=== PATIENT | female | born 1950 | race Caucasian/White ===

== ENCOUNTER 2020-01-12 14:05 | Inpatient (IN) | payer MEDICARE, BC, SELFPAY ==
[2019-11-21 12:58] VITALS: BMI 27.8
--- NOTE | 2020-01-04 13:46 | EKG12_ITS ---
Test Reason : RE OP Blood Pressure : / mmHG Vent. Rate : 082 BPM Atrial Rate : 082 BPM P-R Int : 186 ms QRS Dur : 080 ms QT Int : 378 ms P-R-T Axes : 072 -20 059 degrees QTc Int : 441 ms Normal sinus rhythm Normal ECG Confirmed by RENA SAAVEDRA, BO ([id number]), photography editor EMMETT NEWMAN ([id number]) on 01/05/2020 11:04:00 AM Referred By: Mamadou Hu Confirmed By:BO CHASE MD
[2020-01-04 14:47] LABS: Absolute Lymphocyte Count 2.31 X10^3/uL (0.83-4.51); Absolute Neutrophil Count 4.5 X10^3/uL (2.0-7.7); Basophil# 0.05 X10^3/uL; Basophil% 0.7 % (0-1); Eosinophil# 0.08 X10^3/uL; Eosinophils% 1.1 % (0-5); Hemoglobin 14.9 g/dL (12.0-15.0); Lymphocyte # 2.31 X10^3/ul (4.0); Lymphocyte % 30.6 % (19-41); Mean Corp Hgb Conc 33.1 g/dL (32-36); Mean Corpuscular Hgb 29.5 pg (27.0-32.0); Mean Corpuscular Volume 89.1 fL (81-99); Mean Platelet Vol. 10.2 fl (6.2-12.0); Monocyte# 0.56 X10^3/uL; Monocyte% 7.4 % (0-10); NRBC Flagged by Analyzer 0 % (0-5); Neutrophil # 4.52 X10^3/uL (2.7-7.7); Neutrophil % 59.9 % (47-70); Platelet Count 306 K/mm3 (150-450); RBC Distribution Width CV 13.3 % (11.6-14.6); RBC Distribution Width SD 43.7 fl (35.1-43.9); Red Blood Count 5.05 M/mm3 (4.2-5.4); White Blood Count 7.5 K/mm3 (4.4-11.0)
[2020-01-04 15:13] LABS: Anion Gap 6 (5-15); BUN 17 mg/dL (7-18); BUN/Creat Ratio 16.7 RATIO (10-20); Chloride 105 mmol/L (98-107); Creatinine, Serum 1.02 mg/dL (0.55-1.02); EST Glomerular Filtration Rate 57 mL/min (>60); Est Glom Filt Rate - Afr Amer 69 mL/min (>60); Glucose 95 mg/dL (74-106); Potassium 3.5 mmol/L (3.5-5.1); Sodium Level 140 mmol/L (136-145)
[2020-01-04 15:24] LABS: Magnesium 2.2 mg/dL (1.6-2.6)
[2020-01-05 14:37] LABS: HIV - WCH Non-Reactive (Nonreactive)
[2020-01-06 05:07] LABS: HEPATITIS B SURFACE AG Negative (Negative); Hepatitis A AB, Total Negative (Negative); Hepatitis A IgM Antibody Negative (Negative); Hepatitis B Core AB IgM Negative (Negative); Hepatitis B Core Ab Total Negative (Negative); Hepatitis C Ab <0.1 s/co ratio (0.0-0.9)
[2020-01-06 11:43] LABS: Hep B Surface Antibodies Non Reactive (.)
[2020-01-12] VITALS (13 sets, daily range): BP systolic 93–149; BP diastolic 46–83; PULSE 58–75; RESP 16; TEMP 36.1–36.9; O2SAT 92–99; BMI 28.2
--- NOTE | 2020-01-12 06:00 | HP_ITS ---
Intake Intake Visit Reasons: low back Accompanied by: Self Is patient in pain?: Yes Pain scale (1-10): 2 Allergies Penicillins Allergy (Verified 01/04/20 14:42) Hives Medications aspirin 81 mg tablet,delayed release 81 mg PO DAILY 11/21/19 [History Confirmed 01/04/20] atenolol 25 mg tablet 25 mg PO DAILY 11/21/19 [History Confirmed 01/04/20] biotin 5 mg tablet 5 mg PO DAILY 11/21/19 [History Confirmed 01/04/20] glucosamine 500 mg-msm 100 mg-vit C 20 ay-mddlm-xihi-primrose capsule 1 cap PO DAILY 11/21/19 [History Confirmed 01/04/20] hydrochlorothiazide 25 mg tablet 25 mg PO DAILY 11/21/19 [History Confirmed 01/04/20] lovastatin 20 mg tablet 20 mg PO DAILY 11/21/19 [History Confirmed 01/04/20] multivitamin 1 tab PO DAILY 11/21/19 [History Confirmed 01/04/20] omega 8-xib-pae-fish oil 1,000 mg (120 mg-180 mg) capsule 1 cap PO DAILY 11/21/19 [History Confirmed 01/04/20] pyridoxine (vitamin B6) 50 mg capsule 50 mg PO DAILY 11/21/19 [History Confirmed 01/04/20] turmeric root extract 500 mg capsule 500 mg PO DAILY 11/21/19 [History Confirmed 01/04/20] PFSH Medical History (Updated 11/21/19 @ 13:03 by Randee Lemus) Hyperlipidemia (Acute) HTN (hypertension) (Chronic) Surgical History (Updated 11/21/19 @ 13:08 by Randee Lemus) H/O: hysterectomy (Acute) Family History (Updated 11/21/19 @ 13:09 by Randee Lemus) Mother Cancer Father Heart problem Social History (Updated 01/04/20 @ 15:[address] Mamadou Hu DO) household members: spouse housing: house Smoking Status: Never smoker alcohol intake: never what type of physical activity do you participate in: none do you feel safe at home: Yes HPI low back: Details: Parts of this documentation were recorded by a scribe, this documentation accurately reflects the service provided and the decisions made by me, Dr. Mamadou Hu DO 01/04/20 1431. DINORA DUTTA is a 69 year old F here today to sign surgery consent. Surgery is scheduled for 01/12/[address] Hu. Reviewed the pre-operative plans with the patient. Risks and benefits of the procedure were fully explained, including but not limited to infection, neurovascular injury, continued pain, arthritis, stiffness, need for further surgery, re-injury, DVT, PE, general risks of anesthesia, and loss of limb or life. The patient understands all the risks and does wish to proceed with written consent. Mrs. Dutta returns for her preop. She is scheduled to have a decompression at L4-5 8 days from today. She did her lab work at the hospital today. I discussed the surgery with her how it would be done and what to expect afterwards. I answered all her questions. In addition I reviewed the MRI that was on a disc from [facility]. She has severe stenosis at L4-5. We also spoke of possible risks and complications associated with the surgery including possibility of coma paralysis infection meningitis failure to relieve the symptoms blood clot in the legs blood clot in the lungs microinfarction stroke among others. I answered all her questions. Coding Level of Care Code Off vis,est,level 2 Time Spent (min) 30 No H&P changes
[2020-01-12 08:41] LABS: Bedside Glucose 125 mg/dL (70-110)
[2020-01-12] MEDS: Acetaminophen 500 MG Tablet 1000 MG PO (08:54)
[2020-01-12] MEDS: Lactated Ringers 1,000 ML 100 ML IV ×2 (09:13→12:45)
--- NOTE | 2020-01-12 10:20 | RAD_ITS ---
STUDY: X-RAY - LUMBAR SPINE REASON FOR EXAM: Female, 69 years old. LAMINECTOMY L4-5 TECHNIQUE: 1 view(s) of the lumbar spine were obtained. COMPARISON: None FINDINGS: Intraoperative imaging was provided. The localization instrument is seen along the posterior aspect of the L3-L4 vertebrae assuming that the patient has 5 lumbar segments. RAD/Lumbar Spine 2 or 3 Views IMPRESSION: The metallic localization device is seen overlying the posterior aspect of the L3-L4 disc space. Electronically Signed: Carroll Molina, at 15:04 EST , Service support ,
[2020-01-12] MEDS: THROMBIN (RECOMBINANT) 20,000 UNIT VIAL 20000 UNIT TOPICAL (12:27)
--- NOTE | 2020-01-12 14:21 | OP.PCM_ITS ---
Report of Operation Date of Procedure: 01/12/20 Description of Surgical Findings:: Preoperative diagnosis: Severe spinal stenosis L4-5 Postoperative diagnoses: The same Procedure: Decompression laminectomy L4-5 Surgeon: Dr. Hu Park Superintendent: Ravi from surgery Anesthesia: [facility] Estimated blood loss: 100 cc Drains: Medium Hemovac Complications: None Patient was taken to the OR where she was placed under general endotracheal anesthesia she was then placed in prone position on the Steve frame. After appropriate positioning with care to protect her bony prominences her breasts her brachial plexus bilaterally and her ulnar nerves on both sides and her facial features the back was prepped and draped in standard fashion. Then made a longitudinal incision centered over what I thought would be L4 5 subcutaneous tissues were incised the length of the skin incision first elevated the paraver tebral muscles off the lamina of 4 on the left side a marker was put in place we demonstrated that we were at 3 4 we simply moved down to 1 level. And then we extended the incision just a little. Elevated the patellar muscles off the lamina of 4 and the top of the lamina of 5 then open the opposite side into the same exact thing elevated her care paravertebral muscles off the lamina of L4 and 5 on the right side thorough irrigation was carried out we then put the super slide in place with 2 blades on each side this gave us ample exposure thorough irrigation was carried out bleeders were controlled with cautery. I then removed the spinous process of L for with double-action rongeurs all the way down to the midline. I then elevated the ligamentum flavum off the underside of the lamina of 4 on both sides. The laminectomy was then started first in the midline then went each side keeping the ligamentum flavum released off the lamina. Fashion I was able to perform the laminectomy to go beyond the attachment of the ligamentum flavum I then remove the ligamentum flavum on each side with 45 degree Kerrison rongeurs. Will use them on each side to remove the ligamentum flavum all the way lateral into the lateral gutter along with some bone of the lateral gutter. Was done first on the right side as this was her worst side and I was working from the patient's left side. At that is the side completely decompressed I then moved to the opposite side of the table was rehooked to my cooling unit and my light began decompressing the rest of the left side. Given the 45 degree Kerrison rongeurs of different sizes were used to go between the dura and ligamentum flavum and remove the ligamentum flavum and some of the lateral recess. This completely opened the canal and decompressed the L5 nerve roots on each side. We thoroughly irrigated every 10 to 15 minutes in the course of the case to prevent infection. We had good hemostasis placed an amnionic membrane directly over the dura to prevent adhesions in the future. Then placed Gelfoam over the top of that. A medium Hemovac drain was then inserted the lumbar fascia was approximated using #1 Vicryl with interrupted fashion in [id number]. The subcutaneous tissues remains reapproximated with a 2-0 Vicryl in interrupted fashion and skin was approximated with skin clips. Sterile dressings were then applied. She was then recovered in the OR she was moved to her hospital bed and taken to recovery in satisfactory condition.
[2020-01-12] MEDS: Ondansetron 4 MG/2 ML Vial IV (17:09)
--- NOTE | 2020-01-12 17:57 | PCM.PN.HOSP ---
<Garrison Martino - Last Filed: 01/12/20 17:57> Reason for Visit: medical management Subjective: This is a 69 year old female with pmhx of lumbar spinal stenosis, HTN, HLD, who today underwent L4/L5 laminectomy and decompression with Dr. Hu. She is doing well post operatively although at this time remains somewhat groggy. She currently denies any SOB or cough, fevers or chills, nausea/vomiting. She has no pain, numbness, or tingling at this time. At home she experienced severe BL LE pain and some parasthesias in the BL feet leading to this surgery. As of late she has been in her normal state of health. Her PCP manages her HTN/HLD. Vitals/I&O's: Vital Signs Temp Pulse Resp BP Pulse Ox 97.8 F 65 16 103/57 L 92 01/12/20 16:57 01/12/20 16:57 01/12/20 16:57 01/12/20 16:57 01/12/20 16:57 Oxygen Flow Rate (L/min) 6 Oxygen Delivery Method Room Air Weight: 154 lb 5.177 oz Body Mass Index (BMI) 28.2 Intake and Output for Last 24 Hours 01/10/20 01/11/20 01/12/20 23:59 23:59 23:59 Intake Total 990.00 / 990.00 Output Total 460 / 460 Balance 530.00 / 530.00 General: Alert, Oriented x3, Cooperative HEENT: Atraumatic, PERRLA, EOMI, Normocephalic Neck: Supple, No JVD, Negative Carotid Bruits Lungs: Clear to auscultation, Normal air movement Cardiovascular: Regular rate, No murmurs Abdomen: Bowel Sounds Present, Soft, Non Tender Extremities: No edema, Capillary Refill Less than 3 Seconds Skin: No rashes, No breakdown Musculoskeletal: No Tenderness to Palpation of Joints or Extremities, - - distal PMS intact BL LE Neurological: Cranial nerves II-XII grossly intact Psych/Mental Status: Normal Affect, Appropriate, Alert and oriented to time, place, person, mood and affect Microbiology Past 72 Hours 01/11/20 12:30 Interface Orders SARS-CoV-2 Antigen (Rapid) - Final Laboratory Results 01/12/20 08:33: POC Glucose 125 H Current Medications Enteral Nutritional Formula (Ensure Surgery 237 Ml Liquid) 237 ml PO TIDCM [facility] Last Admin: 01/12/20 17:01 Dose: Not Given Documented by: Famotidine (Famotidine 20 Mg Tablet) 20 mg PO BID [facility] Clindamycin Phosphate 900 mg/ (Dextrose) 106 mls @ 150 mls/hr IV Q8H [facility] Stop: 01/13/20 04:43 Sodium Chloride () 250 mls @ 15 mls/hr IV .[id number] PRN PRN Reason: Saline Flush Sodium Chloride () 250 mls @ 15 mls/hr IV .[id number] PRN PRN Reason: Additional IVPB Infusion Morphine Sulfate (Morphine 4 Mg/Ml Syringe) 2 - 4 mg IV Q2H PRN PRN PRN Reason: Pain Score 6-10 Morphine Sulfate (Morphine 2 Mg/Ml Syringe) 2 - 4 mg IV Q2H PRN PRN PRN Reason: Pain Score 6-10 Ondansetron HCl (Ondansetron 4 Mg/2 Ml Vial) 4 mg IV Q8H PRN PRN PRN Reason: NAUSEA Last Admin: 01/12/20 17:09 Dose: 4 mg Documented by: Senna/Docusate Sodium (Senna/Docusate Sodium 1 Tablet) 2 tablet PO BID [facility] Sodium Chloride (0.9% Saline Lock 10 Ml Syringe) 10 - 40 ml IV UD PRN PRN Reason: SALINE FLUSH STROKE Vital Signs/Narrative: Vital Signs Temp Pulse Resp BP Pulse Ox 01/12/20 16:57 97.8 F 65 16 103/57 L 92 01/12/20 16:22 97.0 F L 64 16 113/58 L 94 01/12/20 16:15 61 16 113/55 L 93 01/12/20 16:00 65 16 104/46 L 98 01/12/20 15:45 59 L 16 104/49 L 98 01/12/20 15:26 63 16 100/65 98 01/12/20 15:15 62 16 116/67 98 01/12/20 15:05 58 L 16 93/57 L 98 01/12/20 14:30 97.4 F L 59 L 16 108/55 L 99 Medical Necessity - Tobacco Use Smoking Status: Never smoker Tobacco Use: Non-smoker Assessment/Plan 1. Lumbar spinal stenosis - s/p L4/L5 laminectomy/decompression per Dr. Hu. Doing well post op with no acute issues. Received perioperative Clindamycin. Labs reviewed no marked abnormalities. Hepatitis and HIV screens are negative. -It is not clear why the patient takes daily aspirin. If the patient intends to resume this the timing will need to be OK'd with Dr. Hu. 2. HTN - resume home meds in the AM. 3. HLD - resume statin in the AM Thank you for the opportunity to participate in the care of this patient. This patient was seen by Garrison Martino PA-C under the supervision of Dr. Flowers. <Piotr Flowers - Last Filed: 01/12/20 20:07> Vitals/I&O's: Vital Signs Temp Pulse Resp BP Pulse Ox 36.4 C L 61 16 101/60 95 01/12/20 18:42 01/12/20 18:42 01/12/20 18:42 01/12/20 18:42 01/12/20 19:05 Oxygen Flow Rate (L/min) 6 Oxygen Delivery Method Room Air Weight: 70 kg Body Mass Index (BMI) 28.2 Intake and Output for Last 24 Hours 01/10/20 01/11/20 01/12/20 23:59 23:59 23:59 Intake Total 1140.00 / 1140.00 Output Total 560 / 560 Balance 580.00 / 580.00 General: Alert, Cooperative HEENT: Atraumatic, Normocephalic Lungs: Clear to auscultation, Normal air movement Cardiovascular: Regular rate, No murmurs Abdomen: Bowel Sounds Present, Soft, Non Tender Extremities: No edema, No Calf Tenderness Skin: No rashes, No breakdown Musculoskeletal: - Neurological: Cranial nerves II-XII grossly intact Psych/Mental Status: Normal Affect, Appropriate Microbiology Past 72 Hours 01/11/20 12:30 Interface Orders SARS-CoV-2 Antigen (Rapid) - Final Laboratory Results 01/12/20 08:33: POC Glucose 125 H Current Medications Atenolol (Atenolol 25 Mg Tablet) 25 mg PO DAILY [facility] Atorvastatin Calcium (Atorvastatin Calcium 10 Mg Tablet) 5 mg PO QHS [facility] Enteral Nutritional Formula (Ensure Surgery 237 Ml Liquid) 237 ml PO TIDCM [facility] Last Admin: 01/12/20 17:01 Dose: Not Given Documented by: Famotidine (Famotidine 20 Mg Tablet) 20 mg PO BID [facility] Hydrochlorothiazide (Hydrochlorothiazide 25 Mg Tablet) 25 mg PO DAILY [facility] Clindamycin Phosphate 900 mg/ (Dextrose) 106 mls @ 150 mls/hr IV Q8H [facility] Stop: 01/13/20 04:43 Last Admin: 01/12/20 19:49 Dose: 150 mls/hr Documented by: Sodium Chloride () 250 mls @ 15 mls/hr IV .[id number] PRN PRN Reason: Saline Flush Last Admin: 01/12/20 19:49 Dose: 15 mls/hr Documented by: Sodium Chloride () 250 mls @ 15 mls/hr IV .[id number] PRN PRN Reason: Additional IVPB Infusion Morphine Sulfate (Morphine 4 Mg/Ml Syringe) 2 - 4 mg IV Q2H PRN PRN PRN Reason: Pain Score 6-10 Morphine Sulfate (Morphine 2 Mg/Ml Syringe) 2 - 4 mg IV Q2H PRN PRN PRN Reason: Pain Score 6-10 Ondansetron HCl (Ondansetron 4 Mg/2 Ml Vial) 4 mg IV Q8H PRN PRN PRN Reason: NAUSEA Last Admin: 01/12/20 17:09 Dose: 4 mg Documented by: Senna/Docusate Sodium (Senna/Docusate Sodium 1 Tablet) 2 tablet PO BID [facility] Sodium Chloride (0.9% Saline Lock 10 Ml Syringe) 10 - 40 ml IV UD PRN PRN Reason: SALINE FLUSH STROKE Vital Signs/Narrative: Vital Signs Temp Pulse Resp BP Pulse Ox 01/12/20 19:05 95 01/12/20 18:42 36.4 C L 61 16 101/60 93 01/12/20 16:57 36.6 C 65 16 103/57 L 92 01/12/20 16:22 36.1 C L 64 16 113/58 L 94 01/12/20 16:15 61 16 113/55 L 93 Assessment/Plan Patient seen and examined independently. Data reviewed. I agree with the above note by the physician news production assistant. 1. Status post L4-L5 laminectomy and decompression. Management per spine surgery. 2. Hypertension: Stable at this time. Continue with atenolol, HCTZ 3. Hyperlipidemia: Patient on low-dose of atorvastatin. 4. VTE prophylaxis: SCDs. Thank you for the consult. The hospitalist service will continue to follow along during this patient's hospitalization. Inpatient E&M: [id number] Subs Hosp L2
[2020-01-12] MEDS: Atorvastatin Calcium 10 MG Tablet 5 MG PO (21:39)
[2020-01-12] MEDS: Senna/Docusate Sodium 1 Tablet 2 TABLET PO (21:39)
[2020-01-12] MEDS: Famotidine 20 MG Tablet PO (21:40)
[2020-01-13 02:16] VITALS: BP 99/57; PULSE 60; RESP 16; TEMP 36.3; O2SAT 96
[2020-01-13 08:40] VITALS: PULSE 68
[2020-01-13 08:47] VITALS: BP 113/56; PULSE 63; RESP 16; TEMP 36.6; O2SAT 96
[2020-01-13] MEDS: Ensure Surgery 237 ML LIQUID PO ×3 (08:51→16:52)
[2020-01-13 09:20] VITALS: O2SAT 97
[2020-01-13] MEDS: Famotidine 20 MG Tablet PO ×2 (09:48→20:11)
[2020-01-13] MEDS: hydroCHLOROthiazide 25 MG Tablet PO (09:49)
[2020-01-13] MEDS: Senna/Docusate Sodium 1 Tablet 2 TABLET PO ×2 (09:49→20:11)
[2020-01-13] MEDS: Atenolol 25 MG Tablet PO (09:49)
--- NOTE | 2020-01-13 11:15 | CASEMGMT ---
RN CM Face to Face with patient for initial transition planning/care coordination assessment. RN CM introduced self and role at [facility]. Patient lying in bed, alert and oriented. Patient willing to participate in assessment and is able to answer all questions appropriately. Care providers, pharmacy, and demographics verified. Patient wishes to discharge home, denies need for home health at this time. Patient states she has no further needs or concerns at this time. CM to follow for discharge planning needs that may arise. PCP: [facility] Specialists: [facility] spinal surgeon [facility]erred [facility]acy: [facility] Insurance: Elaina TRAN Prescription Benefit: yes Living Will/HPOA: yes, Narendra Dutta LNOK: Living Arrangements: Patient lives with in a 2 story home with bed and bath on first floor. 2 steps and railing to enter the home. Patient states she was independent at home prior to surgery. Transportation: DME/HHC: patient states she has shower chair, raised toilet, and walker at home. Patient denies previous HHC. Disposition Plan: Patient to discharge home with family support and follow-up plans in place. Zara ELIZALDE, RN, CM
--- NOTE | 2020-01-13 13:12 | PN_ITS ---
<Garrison Martino - Last Filed: 01/13/20 13:12> Reason for Visit: Postop laminectomy Subjective: Patient doing well this morning with no acute issues. He has some nausea last night however none so far today. No pain in her back today. She does complain of some increased krlf-tgl-bmxbvwa sensation in the left foot. No fevers or chills. No shortness of breath. Vitals/I&O's: Vital Signs Temp Pulse Resp BP Pulse Ox 97.9 F 63 16 113/56 L 97 01/13/20 08:47 01/13/20 08:47 01/13/20 08:47 01/13/20 08:47 01/13/20 09:20 Oxygen Flow Rate (L/min) 6 Oxygen Delivery Method Room Air Weight: 154 lb 5.177 oz Body Mass Index (BMI) 28.2 Intake and Output for Last 24 Hours 01/11/20 01/12/20 01/13/20 23:59 23:59 23:59 Intake Total 1288.00 / 1288.00 237.25 / 237.25 Output Total 560 / 560 878 / 878 Balance 728.00 / 728.00 -640.75 / -640.75 General: Alert, Oriented x3, Cooperative HEENT: Atraumatic, PERRLA, EOMI, Normocephalic Neck: Supple, No JVD, Negative Carotid Bruits Lungs: Clear to auscultation, Normal air movement Cardiovascular: Regular rate, No murmurs Abdomen: Bowel Sounds Present, Soft, Non Tender Extremities: No edema, Capillary Refill Less than 3 Seconds Skin: No rashes, No breakdown Musculoskeletal: No Tenderness to Palpation of Joints or Extremities Neurological: Cranial nerves II-XII grossly intact Psych/Mental Status: Normal Affect, Appropriate, Alert and oriented to time, place, person, mood and affect Microbiology Past 72 Hours 01/11/20 12:30 Interface Orders SARS-CoV-2 Antigen (Rapid) - Final Current Medications Atenolol (Atenolol 25 Mg Tablet) 25 mg PO DAILY ON [facility] OF [facility] Last Admin: 01/13/20 09:49 Dose: 25 mg Documented by: Atorvastatin Calcium (Atorvastatin Calcium 10 Mg Tablet) 5 mg PO QHS ON LICENSE OF [facility] Last Admin: 01/12/20 21:39 Dose: 5 mg Documented by: Enteral Nutritional Formula (Ensure Surgery 237 Ml Liquid) 237 ml PO TIDCM ON LICENSE OF [facility] Last Admin: 01/13/20 12:46 Dose: 237 ml Documented by: Famotidine (Famotidine 20 Mg Tablet) 20 mg PO BID ON [facility] OF [facility] Last Admin: 01/13/20 09:48 Dose: 20 mg Documented by: Hydrochlorothiazide (Hydrochlorothiazide 25 Mg Tablet) 25 mg PO DAILY ON [facility] OF [facility] Last Admin: 01/13/20 09:49 Dose: 25 mg Documented by: Sodium Chloride () 250 mls @ 15 mls/hr IV .[id number] PRN PRN Reason: Saline Flush Last Infusion: 01/13/20 06:00 Dose: 0 mls/hr Documented by: Sodium Chloride () 250 mls @ 15 mls/hr IV .[id number] PRN PRN Reason: Additional IVPB Infusion Morphine Sulfate (Morphine 4 Mg/Ml Syringe) 2 - 4 mg IV Q2H PRN PRN PRN Reason: Pain Score 6-10 Morphine Sulfate (Morphine 2 Mg/Ml Syringe) 2 - 4 mg IV Q2H PRN PRN PRN Reason: Pain Score 6-10 Ondansetron HCl (Ondansetron 4 Mg/2 Ml Vial) 4 mg IV Q8H PRN PRN PRN Reason: NAUSEA Last Admin: 01/12/20 17:09 Dose: 4 mg Documented by: Senna/Docusate Sodium (Senna/Docusate Sodium 1 Tablet) 2 tablet PO BID ON [facility] OF [facility] Last Admin: 01/13/20 09:49 Dose: 2 tablet Documented by: Sodium Chloride (0.9% Saline Lock 10 Ml Syringe) 10 - 40 ml IV UD PRN PRN Reason: SALINE FLUSH STROKE Vital Signs/Narrative: Vital Signs Pulse Ox 01/13/20 09:20 97 Medical Necessity - Tobacco Use Smoking Status: Never smoker Tobacco Use: Non-smoker Assessment/Plan 1. Lumbar spinal stenosis - s/p L4/L5 laminectomy/decompression per Dr. Hu, postop day #1. Doing well post op with no acute issues. Received perioperative Clindamycin. Hepatitis and HIV screens are negative. -It is not clear why the patient takes daily aspirin. If the patient intends to resume this the timing will need to be OK'd with Dr. Hu. 2. HTN -continue home meds. BP is low normal. Trend at this time. 3. HLD -continue home meds Thank you for the opportunity to participate in the care of this patient. This patient was seen by Garrison Martino PA-C under the supervision of Dr. Sung <Kenyetta Sung - Last Filed: 01/13/20 18:02> Vitals/I&O's: Vital Signs Temp Pulse Resp BP Pulse Ox 98.4 F 74 16 108/58 L 95 01/13/20 14:18 01/13/20 14:18 01/13/20 14:18 01/13/20 14:18 01/13/20 14:18 Oxygen Flow Rate (L/min) 6 Oxygen Delivery Method Room Air Weight: 70 kg Body Mass Index (BMI) 28.2 Intake and Output for Last 24 Hours 01/11/20 01/12/20 01/13/20 23:59 23:59 23:59 Intake Total 1288.00 / 1288.00 237.25 / 237.25 Output Total 560 / 560 878 / 878 Balance 728.00 / 728.00 -640.75 / -640.75 Microbiology Past 72 Hours 01/11/20 12:30 Interface Orders SARS-CoV-2 Antigen (Rapid) - Final Current Medications Acetaminophen (Acetaminophen 500 Mg Tablet) 500 mg PO Q6H PRN PRN PRN Reason: HEADACHE Last Admin: 01/13/20 16:50 Dose: 500 mg Documented by: Atenolol (Atenolol 25 Mg Tablet) 25 mg PO DAILY ON [facility] Last Admin: 01/13/20 09:49 Dose: 25 mg Documented by: Atorvastatin Calcium (Atorvastatin Calcium 10 Mg Tablet) 5 mg PO QHS ON [facility] OF [facility] Last Admin: 01/12/20 21:39 Dose: 5 mg Documented by: Enteral Nutritional Formula (Ensure Surgery 237 Ml Liquid) 237 ml PO TIDCM ON LICENSE OF [facility] Last Admin: 01/13/20 16:52 Dose: 237 ml Documented by: Famotidine (Famotidine 20 Mg Tablet) 20 mg PO BID ON [facility] OF [facility] Last Admin: 01/13/20 09:48 Dose: 20 mg Documented by: Hydrochlorothiazide (Hydrochlorothiazide 25 Mg Tablet) 25 mg PO DAILY ON [facility] Last Admin: 01/13/20 09:49 Dose: 25 mg Documented by: Sodium Chloride () 250 mls @ 15 mls/hr IV .[id number] PRN PRN Reason: Saline Flush Last Infusion: 01/13/20 06:00 Dose: 0 mls/hr Documented by: Sodium Chloride () 250 mls @ 15 mls/hr IV .[id number] PRN PRN Reason: Additional IVPB Infusion Morphine Sulfate (Morphine 4 Mg/Ml Syringe) 2 - 4 mg IV Q2H PRN PRN PRN Reason: Pain Score 6-10 Morphine Sulfate (Morphine 2 Mg/Ml Syringe) 2 - 4 mg IV Q2H PRN PRN PRN Reason: Pain Score 6-10 Ondansetron HCl (Ondansetron 4 Mg/2 Ml Vial) 4 mg IV Q8H PRN PRN PRN Reason: NAUSEA Last Admin: 01/12/20 17:09 Dose: 4 mg Documented by: Senna/Docusate Sodium (Senna/Docusate Sodium 1 Tablet) 2 tablet PO BID [facility] Last Admin: 01/13/20 09:49 Dose: 2 tablet Documented by: Sodium Chloride (0.9% Saline Lock 10 Ml Syringe) 10 - 40 ml IV UD PRN PRN Reason: SALINE FLUSH STROKE Vital Signs/Narrative: Vital Signs Temp Pulse Resp BP Pulse Ox 01/13/20 14:18 98.4 F 74 16 108/58 L 95 Assessment/Plan This patient was seen in conjunction with ALLYSON Garza. I have independently interviewed and examined the patient and reviewed pertinent historical, laboratory, and other data. Please refer to ALLYSON Garza note for his patient's presentation, findings, and recommendations. I have reviewed and his note and concur with his documentation Patient was seen and examined. She feels improved. She has some subjective tingling and numbness in the left lower extremity. Denies any fever or chills. Rest of ROS is negative. Physical Exam: Gen: Comfortable, not pale, not jaundiced CVS:HS I +II, regular, no murmurs RESP: CTA GI: BS present and normal, soft, nontender, no palpable organs, wound drain in place EXT:No edema ASSESSMENT: 1. POD# 1 status post L4/L5 decompressive laminectomy 2. Hypertension 3. Hyperlipidemia Plan: Continue with pain control Continue with antihypertensive medications PT/OT to evaluate and treat Inpatient E&M: [id number] [facility] Hosp L2
[2020-01-13 14:18] VITALS: BP 108/58; PULSE 74; RESP 16; TEMP 36.9; O2SAT 95
--- NOTE | 2020-01-13 16:20 | PN_ITS ---
Progress Note Patient seen on rounds on postop day #1. Patient is sitting comfortably with no complaints. Neurologically she is intact. Her dressing is dry. He has actually walked in the hallway today. States that her leg pain is definitely better and she is getting feelings back in her feet. She is alert and well- oriented. Did complain of one thing that of a headache that she gets frequently. I wrote for Tylenol for the headache. We will see her again tomorrow rounds at which time I will pull the drain and change the dressing and probably let her go home. STROKE Vital Signs/Narrative: Vital Signs Temp Pulse Resp BP Pulse Ox 01/13/20 14:18 98.4 F 74 16 108/58 L 95
[2020-01-13] MEDS: Acetaminophen 500 MG Tablet PO (16:50)
[2020-01-13 19:58] VITALS: BP 106/52; PULSE 64; RESP 16; TEMP 36.6; O2SAT 95
[2020-01-13] MEDS: Atorvastatin Calcium 10 MG Tablet 5 MG PO (20:11)
[2020-01-14 02:25] VITALS: BP 125/68; PULSE 62; RESP 16; TEMP 36.4; O2SAT 96
[2020-01-14] MEDS: Acetaminophen 500 MG Tablet PO (02:26)
[2020-01-14] MEDS: 0.9% Saline Lock 10 ML Syringe IV (02:27)
[2020-01-14] MEDS: Atenolol 25 MG Tablet PO (09:13)
[2020-01-14] MEDS: Ensure Surgery 237 ML LIQUID PO (09:13)
[2020-01-14] MEDS: Famotidine 20 MG Tablet PO (09:13)
[2020-01-14] MEDS: Senna/Docusate Sodium 1 Tablet 2 TABLET PO (09:13)
[2020-01-14] MEDS: hydroCHLOROthiazide 25 MG Tablet PO (09:13)
[2020-01-14 09:17] VITALS: BP 115/76; PULSE 80; RESP 18; TEMP 36.7; O2SAT 92
--- NOTE | 2020-01-14 10:47 | PCM.PN.HOSP ---
<Garrison Martino - Last Filed: 01/14/20 10:47> Reason for Visit: post laminectomy Subjective: No fever/chills/SOB/cough/abd pain/nausea/vomiting. Pt denies pain and parasthesias today. Pt has no complaints at this time. Vitals/I&O's: Vital Signs Temp Pulse Resp BP Pulse Ox 98.0 F 80 18 115/76 92 01/14/20 09:17 01/14/20 09:17 01/14/20 09:17 01/14/20 09:17 01/14/20 09:17 Oxygen Flow Rate (L/min) 6 Oxygen Delivery Method Room Air Weight: 154 lb 5.177 oz Body Mass Index (BMI) 28.2 Intake and Output for Last 24 Hours 01/12/20 01/13/20 01/14/20 23:59 23:59 23:59 Intake Total 1288.00 / 1288.00 837.25 / 1037.25 400 / 400 Output Total 560 / 560 1498 / 1498 510 / 510 Balance 728.00 / 728.00 -660.75 / -460.75 -110 / -110 General: Alert, Oriented x3, Cooperative HEENT: Atraumatic, PERRLA, EOMI, Normocephalic Neck: Supple, No JVD, Negative Carotid Bruits Lungs: Clear to auscultation, Normal air movement Cardiovascular: Regular rate, No murmurs Abdomen: Bowel Sounds Present, Soft, Non Tender Extremities: No edema, Capillary Refill Less than 3 Seconds Skin: No rashes, No breakdown Musculoskeletal: No Tenderness to Palpation of Joints or Extremities Neurological: Cranial nerves II-XII grossly intact Psych/Mental Status: Normal Affect, Appropriate, Alert and oriented to time, place, person, mood and affect Microbiology Past 72 Hours 01/11/20 12:30 Interface Orders SARS-CoV-2 Antigen (Rapid) - Final Current Medications Acetaminophen (Acetaminophen 500 Mg Tablet) 500 mg PO Q6H PRN PRN PRN Reason: HEADACHE Last Admin: 01/14/20 02:26 Dose: 500 mg Documented by: Atenolol (Atenolol 25 Mg Tablet) 25 mg PO DAILY [facility] Last Admin: 01/14/20 09:13 Dose: 25 mg Documented by: Atorvastatin Calcium (Atorvastatin Calcium 10 Mg Tablet) 5 mg PO QHS [facility] Last Admin: 01/13/20 20:11 Dose: 5 mg Documented by: Enteral Nutritional Formula (Ensure Surgery 237 Ml Liquid) 237 ml PO TIDCM [facility] Last Admin: 01/14/20 09:13 Dose: 237 ml Documented by: Famotidine (Famotidine 20 Mg Tablet) 20 mg PO BID [facility] Last Admin: 01/14/20 09:13 Dose: 20 mg Documented by: Hydrochlorothiazide (Hydrochlorothiazide 25 Mg Tablet) 25 mg PO DAILY [facility] Last Admin: 01/14/20 09:13 Dose: 25 mg Documented by: Sodium Chloride () 250 mls @ 15 mls/hr IV .[id number] PRN PRN Reason: Saline Flush Last Infusion: 01/13/20 06:00 Dose: 0 mls/hr Documented by: Sodium Chloride () 250 mls @ 15 mls/hr IV .[id number] PRN PRN Reason: Additional IVPB Infusion Morphine Sulfate (Morphine 4 Mg/Ml Syringe) 2 - 4 mg IV Q2H PRN PRN PRN Reason: Pain Score 6-10 Morphine Sulfate (Morphine 2 Mg/Ml Syringe) 2 - 4 mg IV Q2H PRN PRN PRN Reason: Pain Score 6-10 Ondansetron HCl (Ondansetron 4 Mg/2 Ml Vial) 4 mg IV Q8H PRN PRN PRN Reason: NAUSEA Last Admin: 01/12/20 17:09 Dose: 4 mg Documented by: Senna/Docusate Sodium (Senna/Docusate Sodium 1 Tablet) 2 tablet PO BID [facility] Last Admin: 01/14/20 09:13 Dose: 2 tablet Documented by: Sodium Chloride (0.9% Saline Lock 10 Ml Syringe) 10 - 40 ml IV UD PRN PRN Reason: SALINE FLUSH Last Admin: 01/14/20 02:27 Dose: 10 ml Documented by: STROKE Vital Signs/Narrative: Vital Signs Temp Pulse Resp BP Pulse Ox 01/14/20 09:17 98.0 F 80 18 115/76 92 Medical Necessity - Tobacco Use Smoking Status: Never smoker Tobacco Use: Non-smoker Assessment/Plan 1. Lumbar spinal stenosis - s/p L4/L5 laminectomy/decompression per Dr. Hu, postop day #2. Doing well post op with no acute issues. Received perioperative Clindamycin. Hepatitis and HIV screens are negative. -It is not clear why the patient takes daily aspirin. If the patient intends to resume this the timing will need to be OK'd with Dr. Hu. I advised her to ask her PCP if and why she needs daily aspirin. 2. HTN -continue home meds. Stable. 3. HLD -continue home meds Thank you for the opportunity to participate in the care of this patient. This patient was seen by Garrison Martino PA-C under the supervision of Dr. Sung <Kenyetta Sung - Last Filed: 01/14/20 14:23> Vitals/I&O's: Vital Signs Temp Pulse Resp BP Pulse Ox 98.0 F 80 18 115/76 93 01/14/20 09:17 01/14/20 09:17 01/14/20 09:17 01/14/20 09:17 01/14/20 11:01 Oxygen Flow Rate (L/min) 6 Oxygen Delivery Method Room Air Weight: 70 kg Body Mass Index (BMI) 28.2 Intake and Output for Last 24 Hours 01/12/20 01/13/20 01/14/20 23:59 23:59 23:59 Intake Total 1288.00 / 1288.00 837.25 / 1037.25 760 / 760 Output Total 560 / 560 1498 / 1498 510 / 510 Balance 728.00 / 728.00 -660.75 / -460.75 250 / 250 Microbiology Past 72 Hours 01/11/20 12:30 Interface Orders SARS-CoV-2 Antigen (Rapid) - Final Current Medications Acetaminophen (Acetaminophen 500 Mg Tablet) 500 mg PO Q6H PRN PRN PRN Reason: HEADACHE Last Admin: 01/14/20 02:26 Dose: 500 mg Documented by: Atenolol (Atenolol 25 Mg Tablet) 25 mg PO DAILY [facility] Last Admin: 01/14/20 09:13 Dose: 25 mg Documented by: Atorvastatin Calcium (Atorvastatin Calcium 10 Mg Tablet) 5 mg PO QHS [facility] Last Admin: 01/13/20 20:11 Dose: 5 mg Documented by: Enteral Nutritional Formula (Ensure Surgery 237 Ml Liquid) 237 ml PO TIDCM [facility] Last Admin: 01/14/20 12:14 Dose: Not Given Documented by: Famotidine (Famotidine 20 Mg Tablet) 20 mg PO BID [facility] Last Admin: 01/14/20 09:13 Dose: 20 mg Documented by: Hydrochlorothiazide (Hydrochlorothiazide 25 Mg Tablet) 25 mg PO DAILY [facility] Last Admin: 01/14/20 09:13 Dose: 25 mg Documented by: Sodium Chloride () 250 mls @ 15 mls/hr IV .[id number] PRN PRN Reason: Saline Flush Last Infusion: 01/13/20 06:00 Dose: 0 mls/hr Documented by: Sodium Chloride () 250 mls @ 15 mls/hr IV .[id number] PRN PRN Reason: Additional IVPB Infusion Morphine Sulfate (Morphine 4 Mg/Ml Syringe) 2 - 4 mg IV Q2H PRN PRN PRN Reason: Pain Score 6-10 Morphine Sulfate (Morphine 2 Mg/Ml Syringe) 2 - 4 mg IV Q2H PRN PRN PRN Reason: Pain Score 6-10 Ondansetron HCl (Ondansetron 4 Mg/2 Ml Vial) 4 mg IV Q8H PRN PRN PRN Reason: NAUSEA Last Admin: 01/12/20 17:09 Dose: 4 mg Documented by: Senna/Docusate Sodium (Senna/Docusate Sodium 1 Tablet) 2 tablet PO BID [facility] Last Admin: 01/14/20 09:13 Dose: 2 tablet Documented by: Sodium Chloride (0.9% Saline Lock 10 Ml Syringe) 10 - 40 ml IV UD PRN PRN Reason: SALINE FLUSH Last Admin: 01/14/20 02:27 Dose: 10 ml Documented by: STROKE Vital Signs/Narrative: Vital Signs Pulse Ox 01/14/20 11:01 93 Assessment/Plan This patient was seen in conjunction with ALLYSON Garza. I have independently interviewed and examined the patient and reviewed pertinent historical, laboratory, and other data. Please refer to ALLYSON Garza note for his patient's presentation, findings, and recommendations. I have reviewed and his note and concur with his documentation Patient was seen and examined. No acute events. Denies any fever or chills. Rest of ROS is negative. Physical Exam: Gen: Comfortable, not pale, not jaundiced CVS:HS I +II, regular, no murmurs RESP: CTA GI: BS present and normal, soft, nontender, no palpable organs, wound drain in place EXT:No edema ASSESSMENT: 1. POD# 2 status post L4/L5 decompressive laminectomy 2. Hypertension 3. Hyperlipidemia Plan: Continue with pain control Continue with antihypertensive medications PT/OT to evaluate and treat Ok for discharge from hospital medicine perspective Inpatient E&M: 83157 Subs Hosp L2
[2020-01-14 11:01] VITALS: O2SAT 93
[2020-01-14 14:51] VITALS: BP 134/77; PULSE 70; RESP 18; TEMP 36.7; O2SAT 100
--- NOTE | 2020-01-14 14:58 | DCINST_ITS ---
You will use the following diet at home:: Regular Additional Instructions: These were instructions for discharge. Mary Lou may remove her dressing on Thursday she may shower on Thursday. She is not to put any more dressings on. May drive in 2 weeks. Return to my office on 22 January. She was told she could eat a regular diet. Continue her home meds as she always has taken them. He has [place] 7.5 mg waiting at home for her. Allergies/Adverse Reactions: Allergies Penicillins Allergy (Verified 01/04/20 14:42) Hives Medications to take at Discharge aspirin 81 mg tablet,delayed release 81 mg PO .T.TH 11/21/19 atenolol 25 mg tablet 25 mg PO DAILY 11/21/19 biotin 5 mg tablet 5 mg PO DAILY 11/21/19 glucosamine 500 mg-msm 100 mg-vit C 20 qd-biaxt-uyhl-primrose capsule 1 cap PO DAILY 11/21/19 hydrochlorothiazide 25 mg tablet 25 mg PO DAILY 11/21/19 lovastatin 20 mg tablet 20 mg PO QHS 11/21/19 multivitamin 1 tab PO DAILY 11/21/19 omega 8-oin-dir-fish oil 1,000 mg (120 mg-180 mg) capsule 1 cap PO DAILY 11/21/19 turmeric root extract 500 mg capsule 500 mg PO DAILY 11/21/19 Primary Care Physician: Moose Barreto MD [Primary Care Provider] - Test Results: Test results from this visit will be discussed in further detail at your follow- up appointment, if applicable.
--- NOTE | 2020-01-14 15:00 | PCM.DC.BLA ---
Discharge Summary Summary: This patient was admitted on January 11 and is being discharged on January 13. Of admission she underwent lumbar laminectomy complete at L4-5. Tolerated the procedure well. Consultations hospital course was unremarkable on the her dressing was changed her drain was removed her incision was healing well. She was told she could eat a regular diet to return to my office on the 22 January. 1 in the hospital: She was seen by a hospitalist and her medical management done by him. - Physical Exam Vitals/I&O's: Vital Signs Temp Pulse Resp BP Pulse Ox 98.0 F 70 18 134/77 H 100 01/14/20 14:51 01/14/20 14:51 01/14/20 14:51 01/14/20 14:51 01/14/20 14:51 Oxygen Flow Rate (L/min) 6 Oxygen Delivery Method Room Air Weight: 154 lb 5.177 oz Body Mass Index (BMI) 28.2 Intake and Output for Last 24 Hours 01/12/20 01/13/20 01/14/20 23:59 23:59 23:59 Intake Total 1288.00 / 1288.00 837.25 / 1037.25 760 / 760 Output Total 560 / 560 1498 / 1498 510 / 510 Balance 728.00 / 728.00 -660.75 / -460.75 250 / 250 Microbiology Past 72 Hours 01/11/20 12:30 Interface Orders SARS-CoV-2 Antigen (Rapid) - Final Current Medications Acetaminophen (Acetaminophen 500 Mg Tablet) 500 mg PO Q6H PRN PRN PRN Reason: HEADACHE Last Admin: 01/14/20 02:26 Dose: 500 mg Documented by: Atenolol (Atenolol 25 Mg Tablet) 25 mg PO DAILY [facility] Last Admin: 01/14/20 09:13 Dose: 25 mg Documented by: Atorvastatin Calcium (Atorvastatin Calcium 10 Mg Tablet) 5 mg PO QHS [facility] Last Admin: 01/13/20 20:11 Dose: 5 mg Documented by: Enteral Nutritional Formula (Ensure Surgery 237 Ml Liquid) 237 ml PO TIDCM [facility] Last Admin: 01/14/20 12:14 Dose: Not Given Documented by: Famotidine (Famotidine 20 Mg Tablet) 20 mg PO BID [facility] Last Admin: 01/14/20 09:13 Dose: 20 mg Documented by: Hydrochlorothiazide (Hydrochlorothiazide 25 Mg Tablet) 25 mg PO DAILY [facility] Last Admin: 01/14/20 09:13 Dose: 25 mg Documented by: Sodium Chloride () 250 mls @ 15 mls/hr IV .[id number] PRN PRN Reason: Saline Flush Last Infusion: 01/14/20 14:56 Dose: Infused Documented by: Sodium Chloride () 250 mls @ 15 mls/hr IV .[id number] PRN PRN Reason: Additional IVPB Infusion Morphine Sulfate (Morphine 4 Mg/Ml Syringe) 2 - 4 mg IV Q2H PRN PRN PRN Reason: Pain Score 6-10 Morphine Sulfate (Morphine 2 Mg/Ml Syringe) 2 - 4 mg IV Q2H PRN PRN PRN Reason: Pain Score 6-10 Ondansetron HCl (Ondansetron 4 Mg/2 Ml Vial) 4 mg IV Q8H PRN PRN PRN Reason: NAUSEA Last Admin: 01/12/20 17:09 Dose: 4 mg Documented by: Senna/Docusate Sodium (Senna/Docusate Sodium 1 Tablet) 2 tablet PO BID [facility] Last Admin: 01/14/20 09:13 Dose: 2 tablet Documented by: Sodium Chloride (0.9% Saline Lock 10 Ml Syringe) 10 - 40 ml IV UD PRN PRN Reason: SALINE FLUSH Last Admin: 01/14/20 02:27 Dose: 10 ml Documented by:
== END 2020-01-14 15:25 | disposition home or self-care (01) | DRG 517 ==
LOC: SDC 14:31 → MS3 14:31
PROVIDERS: Anesthesiology; Admitting Provider Orthopaedic Surgery; PCP Family Medicine; Referring Provider Orthopaedic Surgery; Visit Provider Internal Medicine
PROC: 01NB0ZZ Release Lumbar Nerve, Open Approach (ICD-10-PCS; CPT 63030; principal; 2020-01-12 09:50)
DX: M48.061 Spinal stenosis, lumbar region without neurogenic claudication (principal); I10 Essential (primary) hypertension; E78.5 Hyperlipidemia, unspecified; Z79.82 Long term (current) use of aspirin; Z79.899 Other long term (current) drug therapy; Z87.19 Personal history of other diseases of the digestive system; Z78.0 Asymptomatic menopausal state
CPT/HCPCS: 36415; 72100; 76000; 80048; 82962; 83735; 85025; 86703; 86704; 86705; 86706; 86708; 86709; 86803; 87081; 87340; 87426; 93005; 97110; 97116; 97162; 97166; 97530; 97535; 99251; C9803; J7050; J7120; A4216; G0463; J2405

== ENCOUNTER → 2023-09-30 | Outpatient (CLI) | payer MEDICARE, BC, SELFPAY ==
--- NOTE | 2023-09-30 11:12 | MRI_ITS ---
STUDY: MRI LUMBAR SPINE WITH AND WITHOUT CONTRAST REASON FOR EXAM: Female, 73 years old. Pain -- -- L3 Sclerosis and a prior laminectomy TECHNIQUE: Standardized fat and water weighted pulse sequences were obtained in the sagittal and axial planes. IV 15 ml clariscan was administered for the contrast portion of the examination. COMPARISON: X-ray 09/16/2023 FINDINGS: T12-L1: Normal endplates. Normal disc height, hydration and morphology. Normal bilateral facet joints. Normal central canal and bilateral lateral recesses. Normal bilateral intervertebral neural foramina. Normal lumbar lordosis. Mild S-shaped scoliosis with mild levoscoliosis centered at L4/L5. Normal conus medullaris that terminates at the T12. L1-2: Normal endplates. Normal disc height, hydration and morphology. Normal bilateral facet joints. Normal central canal and bilateral lateral recesses. Normal bilateral intervertebral neural foramina. L2-3: Mild bilateral facet hypertrophy and severe ligament flavum hypertrophy. Mild bilateral disc protrusion reduces moderate spinal stenosis with mild right neural foraminal stenosis and moderate left neural foraminal stenosis. L3-4: Moderate bilateral facet hypertrophy and severe ligament flavum hypertrophy. Large broad disc protrusion produces severe spinal stenosis with near total obliteration of the spinal canal and moderate bilateral neural foraminal stenosis with abutment of the exiting L3 nerve roots bilaterally. L4-5: Status post posterior decompression. Severe bilateral facet hypertrophy. 5 mm of anterolisthesis of L4 on L5 with a mild broad disc protrusion produces mild spinal stenosis relieved by the posterior decompression and moderate bilateral neural foraminal stenosis with abutment of the exiting L4 nerve root laterally. L5-S1: Moderate bilateral facet hypertrophy and ligament flavum hypertrophy. Moderate broad disc protrusion reduces moderate spinal stenosis with moderate bilateral lateral recess stenosis with abutment of S1 roots bilaterally and moderate bilateral neural foraminal stenosis with abutment of the L4 nerve root laterally. Normal visualized sacral ala. 4 cm oval mass of fat intensity of the posterior aspect of the right psoas muscle consistent with an intramuscular lipoma. There is no demonstrated abnormal enhancement. MRI/Spine Lumbar W/WO Contrast IMPRESSION: Postsurgical changes and degenerative disc disease as described above. Electronically Signed: Johan Schroeder MD at 9:19 EDT ,
[2023-09-30 11:52] LABS: CREATININE FINGERSTICK < 1.0 mg/dL (0.55-1.02); EGFR FINGERSTICK > 60.0000 mL/min (>60)
== END | disposition home or self-care (01) ==
LOC: MRI 10:53
PROVIDERS: PCP Family Medicine; Referring Provider Orthopaedic Surgery Orthopaedic Surgery of the Spine; Visit Provider Orthopaedic Surgery Orthopaedic Surgery of the Spine
DX: Z01.812 Encounter for preprocedural laboratory examination (principal); Q78.2 Osteopetrosis; Z98.890 Other specified postprocedural states
CPT/HCPCS: 72158; A9575

== ENCOUNTER → 2024-07-22 | Outpatient (CLI) | payer MEDICARE, BC, SELFPAY ==
--- NOTE | 2024-07-22 07:48 | MRI_ITS ---
PROCEDURE: SPINE CERVICAL (ROUTINE) 07/22/2024 REASON FOR EXAM: CERVICAL MYELOPATHY TECHNIQUE: Multiplanar and multisequence images were obtained without IV contrast administration. COMPARISON: none FINDINGS: Preserved vertebral bodies height. No vertebral fractures or dislocation. Normal craniometric measures of the craniovertebral junction Cervical spondylodegenerative changes evident by multilevel anterior marginal osteophytic lipping and subchondral degenerative marrow signal of mixed Modio I and Modio II of the examined vertebral end plates with variable degrees of reduced bright T2 signal of the intervertebral discs. C1-C2: Atlantodens interval is preserved. Odontoid process and atlantoaxial joint appear normal. Mild atlanto-axial degenerative changes. C2-C3: a 1.5 mm diffuse disc bulge along with bilateral uncovertberal arthropathy indenting the theca encroaching upon the related neural exit foramina inducing moderate exiting nerve roots compression. C3-C4: a 4 mm diffuse disc bulge along with bilateral uncovertberal arthropathy & hypertrophied Ligamenta flava indenting the cord encroaching upon the related neural exit foramina inducing moderate to marked exiting nerve roots compression. C4-C5: a 5.8 mm diffuse disc bulge with left foraminal protrusion along with bilateral uncovertberal arthropathy & hypertrophied Ligamenta flava indenting the cord encroaching upon the related neural exit foramina inducing moderate to marked right and marked left exiting nerve roots compression. C5-C6: a 3.5 mm diffuse disc bulge with left foraminal protrusion along with bilateral uncovertberal arthropathy indenting the theca encroaching upon the related neural exit foramina inducing moderate to marked right and marked left exiting nerve roots compression. C6-C7: a 3 mm diffuse disc bulge with left foraminal protrusion along with bilateral uncovertberal arthropathy indenting the theca encroaching upon the related neural exit foramina inducing moderate to marked right and marked left exiting nerve roots compression. C7-T1: There is no significant disc pathology. Normal morphology of the ligamentum flava. No arthropathy of the uncovertebral joints. No significant spinal canal stenosis noted. Normal appearance of the examined cervical cord and cranio-cervical junction. No marrow infiltrative lesions. No paraspinal soft tissue masses. MRI/Spine Cervical (Routine) IMPRESSION: Straightening of cervical curve denoting myospasm. Cervical spondylodegenerative changes with multilevel disc changes along with u ncovertberal arthropathy inducing spinal canal and neural foraminal compromise as detailed. Reading [facility]
== END | disposition home or self-care (01) ==
PROVIDERS: PCP Family Medicine; Referring Provider Orthopaedic Surgery Orthopaedic Surgery of the Spine; Visit Provider Orthopaedic Surgery Orthopaedic Surgery of the Spine
DX: G95.9 Disease of spinal cord, unspecified (principal)
CPT/HCPCS: 72141

== ENCOUNTER 2024-09-14 11:18 | Observation (INO) | payer MEDICARE, BC, SELFPAY ==
--- NOTE | 2024-09-01 09:55 | EKG12_ITS ---
Test Reason : PREOP Blood Pressure : */* mmHG Vent. Rate : 77 BPM Atrial Rate : 77 BPM P-R Int : 188 ms QRS Dur : 72 ms QT Int : 408 ms P-R-T Axes : 54 64 59 degrees QTcB Int : 461 ms Normal sinus rhythm Normal ECG Confirmed by DAVID SAAVEDRA, JORGE ([id number]), subeditor KENNETH VILLAGRAN ([id number]) on 09/05/2024 9:48:03 AM Referred By: Graham Valdivia Confirmed By: JORGE HERNANDEZ MD
[2024-09-01 10:13] LABS: Hematocrit 42.7 % (37-47); Hemoglobin 14.9 g/dL (12.0-15.0); Immature Granulocytes Count 0.020 X10^3/uL (0.0-0.0); Mean Corp Hgb Conc 34.9 g/dL (32-36); Mean Corpuscular Volume 84.1 fL (81-99); Mean Platelet Vol. 9.9 fl (6.2-12.0); NRBC Flagged by Analyzer 0 % (0-5); Platelet Count 279 K/mm3 (150-450); RBC Distribution Width CV 13.4 % (11.6-14.6); RBC Distribution Width SD 41.6 fl (35.1-43.9); Red Blood Count 5.08 M/mm3 (4.2-5.4); White Blood Count 6.0 K/mm3 (4.4-11.0)
[2024-09-01 10:50] LABS: Anion Gap 12 (5-15); BUN 18 mg/dL (4-19); BUN/Creat Ratio 19.7 RATIO (10-20); Calcium,Total 9.5 mg/dL (7.6-11.0); Carbon Dioxide 23.4 mmol/L (21.0-32.0); Chloride 106 mmol/L (98-108); Glucose 114 mg/dL (70-99); Magnesium 2.1 mg/dL (1.5-2.2); Potassium 3.8 mmol/L (3.3-5.1)
--- NOTE | 2024-09-05 12:34 | PAT.ANESEVAL ---
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 When Was Last Pacemaker Check QUESTION #4 FULL TEXT: You/Your Family Experience fever (hyperthermia) with Anesthesia Last Oral Intake Last Oral intake: Last Oral Intake NPO since Meds taken in AM with sips of water? 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 Female Yes 08/31/24 10:11 HX of Motion Sickness No 08/31/24 10:11 HX of N/V After Surgery No 08/31/24 10:11 Non-Smoker Yes 08/31/24 10:11 Duration of Surgery greater Yes 08/31/24 10:11 than 60 minutes Number of Risk Factors 3 08/31/24 10:11 PONV Score Moderate Risk 08/31/24 10:11 Height & Weight Height & Weight: Anesthesia: Height & Weight Height 5 ft 2 in 07/28/24 13:21 Respiratory Assessment Respiratory Assessment - dowel inserting machine operator: Respiratory Tract Infection Hx - dowel inserting machine operator Hx Respiratory Tract Infection No 08/31/24 10:11 STOP Sleep Apnea STOP Sleep Apnea - dowel inserting machine operator: STOP Sleep Apnea - dowel inserting machine operator Hx Hypertension Yes: CONTROLLED WITH MEDS 08/31/24 10:11 Hx Sleep Apnea No 08/31/24 10:11 CPAP BIPAP Do you snore loudly (louder Yes 08/31/24 10:11 than talking or can be heard Do you often feel tired/ No 08/31/24 10:11 fatigued/ sleepy during daytime? Has anyone observed you stop No 08/31/24 10:11 breathing during sleep? STOP Results Positive 08/31/24 10:11 QUESTION #5 FULL TEXT : Do you snore loudly (louder than talking or can be heard through closed doors)? 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 Specify any problems Hx of Preganancy in last 3 No 08/31/24 10:11 Months Nurse Filling Out Transfusion [id number] 08/31/24 10:11 & Questions: Date: 08/31/24 08/31/24 10:11 Time: 10:19 08/31/24 10:11 Patient unable to answer at this time (ie. confused, unrespo /Reproduction History /Reproductive History - dowel inserting machine operator: /Reproductive Hx- dowel inserting machine operator Hx Now Gestational Age (in weeks): EDC: Hx Hx Para Hx Section SAB PFSH Medical History Wears glasses Arthritis High cholesterol Gastric reflux Non-smoker History of pain when walking History of stress test Cataract Hyperlipidemia HTN (hypertension) Home Medications ?Medication ?Instructions ?Recorded ?Last Taken ?Type atenolol 25 mg tablet 25 mg PO DAILY 11/21/19 01/12/20 History glucosamine 500 mg-msm 100 mg-vit 1 cap PO DAILY 11/21/19 Unknown History C 20 mk-nvwhm-sayz-primrose capsule hydrochlorothiazide 25 mg tablet 25 mg PO DAILY 11/21/19 Unknown History lovastatin 20 mg tablet 20 mg PO QHS 11/21/19 Unknown History multivitamin (Multiple Vitamins 1 tab PO DAILY 11/21/19 Unknown History tablet) omega 9-uvn-rxb-fish oil 1,000 mg 1 cap PO DAILY 11/21/19 Unknown History (120 mg-180 mg) capsule (Fish Oil) turmeric root extract 500 mg 500 mg PO DAILY 09/21/20 Unknown History capsule omeprazole 20 mg capsule,delayed 20 mg PO .QOD 07/08/24 Unknown History release Allergy/AdvReac Type Severity Reaction Status Date / Time Penicillins Allergy Hives Verified 09/01/24 10:44 Family History Mother Cancer Father Heart problem Surgical History H/O removal of cyst History of lumbar laminectomy H/O: hysterectomy Social History household members: spouse housing: house Smoking Status: Never smoker alcohol intake: never what type of physical activity do you participate in: none do you feel safe at home: Yes Audit: Pertinent Findings Pertinent Findings EKG Perinent findings: 09/01/2024. Normal sinus rhythm 77 bpm. Recommendation Anesthesia Recommendation Anesthesia recommendation: OPTIMIZED for anesthesia
[2024-09-05 17:08] LABS: HIV-1 RNA by PCR, Quant. < 20 copies/mL (.)
[2024-09-14] VITALS (19 sets, daily range): BP systolic 122–161; BP diastolic 57–94; PULSE 68–86; RESP 16–18; TEMP 36.3–37.2; O2SAT 92–99; BMI 30.6
--- OUTSIDE RECORDS SUMMARY | 2024-09-14 06:01 | XMS RPT_ITS | CCD ---
Author Organization [facility] Care Team Providers Care Retail Event And Sales Assistant Name Role Phone Ke SAAVEDRA, Moose Head Unavailable Moose Barreto MD Unavailable [facility] Unavailable [phone] Jeffery SAAVEDRA, Dr. Ramsey Unavailable Dr. Mamadou Hu DO Unavailable [phone] Merlyn Cho Unavailable [facility] Unavailable [facility] Unavailable Dr. Melody West MD Unavailable Dr. Fidencio Bird MD Unavailable [facility] Unavailable [phone] Sourav SAAVEDRA, Michelle Downing Unavailable Bill ENGINE BOSS, Glenna Unavailable Jeffery JOYCE, Tami Unavailable Yashira JOYCE, Anna Marie Haro Unavailable Unavail able Richert ENGINE BOSS, Charisma L Unavailable Unavailab le Vess ENGINE BOSS, Neilee L Unavailable Unavailable Lyndsey ENGINE BOSS, Michelle M Unavailable Unavailab le Tamar ENGINE BOSS, Sydnie Smith Unavailable Unavailab le Yashira, Gayle C Unavailable Unavailable Wengerd ENGINE BOSS, Key Unavailable Unavailasim Vasquez RN, Chrissie Herndon Unavailable Unavaila ble Mutersbaugh ENGINE BOSS, Ligia K Unavailable Unavai lable Hugo ENGINE BOSS, Valerie Unavailable Unavailable Zaugg ENGINE BOSS, Ina Unavailable Unavailable Marthey ENGINE BOSS, Tatyana Unavailable Unavailable Gabriela WORKING SUPERVISOR, Esme Unavailable Unavailable Rodolfo BRAR, Valerie Unavailable Unavailable Tomy ENGINE BOSS, Manny Unavailable Unavailable Unavailable Unavailable Pelon SAAVEDRA, Dr. Nicolas Unavailable Skip SAAVEDRA, Dr. Stevenson Unavailable Lydia Dowell MA Unavailable Unavailable VALDIVIA, GUERRERO A Admitting Unavailable VALDIVIA, GUERRERO A Attending Unavailable VALDIVIA, GUERRERO A Primary Care Unavailable KE, MOOSE Consulting Unavailable PROVIDER, UNKNOWN Consulting Unavailable PROVIDER, UNKNOWN Consulting Unavailable PROVIDER, UNKNOWN Consulting Unavailable VALDIVIA, GUERRERO A Admitting Unavailable VALDIVIA, GUERRERO A Attending Unavailable VALDIVIA, GUERRERO A Primary Care Unavailable BROWN, MOOSE Consulting Unavailable PROVIDER, UNKNOWN Consulting Unavailable PROVIDER, UNKNOWN Consulting Unavailable PROVIDER, UNKNOWN Consulting Unavailable KE, MOOSE Admitting Unavailable BROWN, MOOSE Attending Unavailable KE, MOOSE Primary Care Unavailable BROWN, MOOSE Consulting Unavailable PROVIDER, UNKNOWN Consulting Unavailable PROVIDER, UNKNOWN Consulting Unavailable PROVIDER, UNKNOWN Consulting Unavailable Ke SAAVEDRA, Dr. Virk Primary Care Provider Ke SAAVEDRA, Dr. Virk Referring Provider Dr. Guerrero Valdivia MD Attending Provider Skip SAAVEDRA, Dr. Stevenson Referring Provider Myranda SAAVEDRA, Dr. Eldridge Attending Provider Chente Whitmore Attending Unavailable Brown, Moose Primary Care Unavailable Valdivia, Guerrero Attending Unavailable Brown, Moose Referring Unavailable Brown, Moose Primary Care Unavailable Brown, Moose Primary Care Unavailable Brown, Moose Referring Unavailable Valdivia, Guerrero Attending Unavailable Myranda Fairchance Attending Unavailable Brown, Moose Primary Care Unavailable Brown, Moose Primary Care Unavailable Brown, Moose Referring Unavailable Valdivia, Guerrero Attending Unavailable Brown, Moose Primary Care Unavailable Brown, Moose Referring Unavailable Valdivia, Guerrero Attending Unavailable Valdivia, Guerrero Attending Unavailable Brown, Moose Referring Unavailable Brown, Moose Primary Care Unavailable Valdivia, Guerrero Referring Unavailable Brown, Moose Primary Care Unavailable Valdivia, Guerrero Attending Unavailable Valdivia, Guerrero Attending Unavailable Brown, Moose Primary Care Unavailable Valdivia, Guerrero Referring Unavailable Valdivia, Guerrero Attending Unavailable Brown, Moose Primary Care Unavailable Valdivia, Guerrero Referring Unavailable Allergies Allergy Classification Reported Allergen(s) Allergy Type Date of Onset Reaction(s) Facility (20 sources) Penicillin V Drug Allergy Rash [facility]. (1 source) Penicillin Drug Allergy [facility] Repository (4 sources) Penicillins Allergy to substance 07-08-2024 [facility] (1 source) Penicillins Drug allergy (disorder) 09-01-2024 [facility] Repository Medications Current Medications Medication Drug Class(es) Dates Sig (Normalized) Sig (Original) atenolol 25 mg oral tablet (20 sources) beta-Adrenerg ic Jd Start: 0 atenoloL 25 mg tablet ; 1 Tablet daily for 90 days Quantity: 90 {Tablet} Refills: 1 Ordered: 18-Jul-2024 MD Moose Barreto Start: 18-Jul-2024 Comments: Mail order. Comment on above: Mail order. Fish Oils (20 sources) Fish Oil Fnwzs-Hjd-Y-Vwijp-Mmvv-E ve [id number] mg capsule (4 sources) Start: 0 Jpwmt-Vtl-K-[place]ilio- Leslie [id number] mg capsule Active 1 NMA PO DAILY November 21, 2019 12:00am Glucosamine Complex (20 sources) Glucosamine Comp ying hydroCHLOROthiazide 25 mg oral tablet (20 sources) Thiazide Diuretic Start: 5 hydroCHLOROthiazide 25 mg tablet ; 1 Tablet daily for 0 days Quantity: 90 {Tablet} Refills: 3 Ordered: 26-Apr-2024 MD Moose Barreto Start: 26-Apr-2024 Comments: Mail order. Start: 01-15-2024 hydroCHLOROthi azide 25 mg tablet ; 1 Tablet daily for 0 days Quantity: 90 {Tablet} Refills: 0 Ordered: 15-Jan-2024 MD Moose Barreto Start: 15-Jan-2024 Comments: Mail order. Start: 11-21-2019 take 1 tablet by leidy once daily Hydrochlorothiazide 25 mg tablet Active 25 mg PO DAILY November 21, 2019 12:00am Comment on above: Mail order. lovastatin 20 mg oral tablet (20 sources) HMG-CoA Reductase Inhibitor Start: 0 lovastatin 20 mg tablet ; 1 Tablet daily for 0 days Quantity: 90 {Tablet} Refills: 3 Ordered: 26-Apr-2024 MD Moose Barreto Start: 26-Apr-2024 Comments: Mail order. Comment on above: Mail order. Multivitamin (Multiple Vitamins) tablet (4 sources) Start: 0 Multivitamin (Multiple Vitamins) tablet Active 1 {tbl} PO DAILY November 21, 2019 12:00am omega-3 acid ethyl esters (group home) 1000 mg oral capsule (4 sources) Start: 0 Theriot 2-Jvg-Oat-Fish Oil (Fish Oil) 1,000 mg (120 mg-180 mg) capsule Active 1 NMA PO DAILY November 21, 2019 12:00am omeprazole 20 mg delayed release oral capsule (20 sources) Proton Pump Inhibitor Start: take 1 capsule by mouth every other day Omeprazole 20 mg capsule,delayed release(DR/EC) Active 20 mg PO .QOD July 08, 2024 12:00am Start: 04-26-2024 omeprazole 20 mg capsule,delayed release ; 1 (one) Capsule qd for 30 days Quantity: 30 {Capsule} Refills: 5 Ordered: 26-Apr-2024 MADAI Arias Start: 26-Apr-2024 Start: 08-01-2019 End: 08-31-2019 take 1 capsule by mouth once daily Omeprazole 20 MG Oral Capsule Delayed Release ; 1 (one) Capsule qd for 30 days Quantity: 30 {Capsule} Refills: 0 Ordered: 01-Aug-2019 MD Moose Barreto Start: 01-Aug-2019 End: 31-Aug-2019 Status: Inactive Turmeric Root Extract (4 sources) Start: 11-21-2019 take 1 capsule by mouth once daily Turmeric Root Extract 500 mg capsule Active 500 mg PO DAILY November 21, 2019 12:00am Completed/Discontinued Medications Medication Drug Class(es) Dates Sig (Normalized) Sig (Original) aspirin 81 mg delayed release oral tablet (20 sources) Platelet Aggregation Inhibitor, Nonsteroidal Anti-inflammatory Drug Start: 11-21-2019 End: 04-09-2020 Aspirin 81 mg tablet,delayed release (DR/EC) Discontinued 81 mg PO .T.November 21, 2019 12:00am April 09, 2020 11:31am ONLY THURSDAY AND THURSDAY take 1 tablet by mouth once karin y ASPIRIN, 81MG (Oral Tablet) ; 1 daily (81 MG) Status: Inactive azelastine hydrochloride 0.5 mg/ml ophthalmic solution (16 sources) Histamine-1 Receptor Antagonist End: 08-30-2024 azelastine 0.05 % eye drops ; (0.05 %) End: 30-Aug-2024 Status: Inactive biotin 5 mg oral tablet (20 sources) Start: 11-21-2019 End: 04-09-2020 take 1 tablet by mouth once daily Biotin 5 mg tablet Discontinued 5 mg PO DAILY November 21, 2019 12:00am April 09, 2020 11:31am Biotin Status: I nactive Comments: for fingernails (helping) Biotin Comments: for fingernails (helping) Comment on above: for fingernails (hel ping) cephalexin 500 mg oral capsule (20 sources) Cephalosporin Antibacterial Start: 016 End: take 1 capsule by mouth three times daily Cephalexin 500 MG Oral Capsule ; 1 Capsule three times daily for 10 days Quantity: 30 {Capsule} Refills: 0 Ordered: 08-Jan-2016 MD Moose Barreto Start: 22-Dec-2015 End: 01-Jan-2016 Status: Inactive gabapentin 300 mg oral capsule (20 sources) Anti-epileptic Agent Start: 022 End: take 1 capsule by mouth three times daily as needed for pain Gabapentin 300 MG Oral Capsule ; 1 (one) Capsule tid prn nerve pain / numbness for 0 days Quantity: 90 {Capsule} Refills: 3 Ordered: 24-Sep-2021 MADAI Arias Start: 14-May-2021 End: 24-Sep-2021 Status: Inactive Glucosamine Chondroitin Complx (20 sources) Glucosamine Chondroitin Complx Status: Inactive meclizine hydrochloride 25 mg oral tablet (20 sources) Antiemetic take 1 mg by mouth three times daily as needed Meclizine HCl 25 MG Oral Tablet ; three times daily, as needed (25 MG) Status: Inactive Comments: Medication taken as needed. ER Comment on above: Medication taken as needed. ER ondansetron 4 mg oral tablet (20 sources) Serotonin-3 Receptor Antagonist take 1 mg by mouth three times daily as needed Zofran 4 MG Oral Tablet ; three times daily, as needed (4 MG) Status: Inactive Comments: Medication taken as needed. ER Comment on above: Medication taken as needed. ER predniSONE 20 mg oral tablet (20 sources) Start: 023 End: 024 predniSONE 20 mg tablet ; 1 (one) Tablet as directed for 0 days Quantity: 20 {Tablet} Refills: 0 Ordered: 28-Apr-2023 MADAI Boyle Sydnie Smith Start: 02-Feb-2023 End: 28-Apr-2023 Status: Inactive Comments: Take 1 tab tid for 3 days thenTake 1 tabs bid for 3 days thenTake 1 tab qd for 3 days thenTake 1/2 ab qd for 4 days. Comment on above: Take 1 tab tid for 3 days thenTake 1 tabs bid for 3 days thenTake 1 tab qd for 3 days thenTake 1/2 ab qd for 4 days. pregabalin 50 mg oral capsule (20 sources) take 2 capsules by mouth once daily Lyrica 50 MG Oral Capsule ; 2 daily (50 MG) Status: Inactive Comments: [facility] Comment on above: [facility] triamcinolone acetonide 1 mg/ml topical cream (20 sources) Corticosteroid Start: 014 End: 015 TRIAMCINOLONE ACETONIDE, 0.1% (External Cream) ; AAA Cream Cream three times daily for up to 2 weeks in any one location; may resume after a 1 week break between courses for 0 days Quantity: 80 {Gram} Refills: 0 Ordered: 04-Jul-2014 MARIA DEL CARMEN Vasquez Start: 28-Jun-2013 End: 04-Jul-2014 Status: Inactive Problems Active Problems Problem Classification Problem Date Documented Date Episodic/Chronic Allergic reactions (20 sources) Eczema; Translations: [Dermatitis, unspecified] 06-28-2013 Episodic Conditions associated with dizziness or vertigo (20 sources) Vertigo; Translations: [Dizziness and giddiness] 03-20-2021 Episodic Disorders of lipid metabolism (20 sources) Hyperlipidemia; Translations: [Hyperlipidemia, 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-2023 Chronic Comment on above: had SE w Atorvastati n but tolerates Lovastatin Esophageal disorders (20 sources) Gastroesophageal reflux disease without esophagitis; Translations: [Gastro-esophageal reflux disease without esophagitis] 02-02-2023 Chronic Essential hypertension (20 sources) Benign hypertension; Translations: [Essential (primary) hypertension] 02-02-2023 Chronic Immunizations and screening for infectious disease (20 sources) Needs influenza immunization; Translations: [Encounter for immunization] 01-09-2015 Episodic Nonspecific chest pain (20 sources) Atypical chest pain; Translations: [Other chest pain] 12-17-2010 Episodic Osteoarthritis (20 sources) Osteoarthritis of multiple joints ; Translations: [Polyosteoarthritis, 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-2023 Chronic Other acquired deformities (9 sources) Scoliosis of lumbar spine; Translations: [Scoliosis, unspecified] 07-08-2024 Chronic Other acquired deformities (9 sources) Lumbar spondylolisthesis; Translations: [Spondylolisthesis, lumbar region] 07-08-2024 Episodic Other aftercare (20 sources) High risk drug monitoring status; Translations: [Other fpc (current) drug therapy] 01-02-2015 Episodic Other congenital anomalies (4 sources) Osteosclerosis; 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 Chronic Other connective tissue disease (20 sources) Tendinitis; Translations: [Enthesopathy, unspecified] 03-24-2023 Episodic Other connective tissue disease (20 sources) Pain in toe; Translations: [Pain in unspecified toe(s)] 08-25-2017 Episodic Other connective tissue disease (20 sources) Snapping thumb syndrome; Translations: [Trigger thumb, unspecified thumb] 05-14-2015 Episodic Other connective tissue disease (20 sources) Digital mucous cyst; Translations: [Ganglion, unspecified hand] 05-14-2015 Episodic Other connective tissue disease (1 source) Pain in lower limb 08-10-2023 Episodic Other ear and sense organ disorders (20 sources) Tinnitus; Translations: [Tinnitus, unspecified ear] 12-17-2010 Episodic Other inflammatory condition of skin (20 sources) Rosacea; Translations: [Rosacea, 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-2023 Chronic Other nervous system disorders (20 sources) Carpal tunnel syndrome; Translations: [Carpal tunnel syndrome, unspecified upper limb] 02-02-2023 Chronic Other nervous system disorders (20 sources) Neuropathy of lower limb; Translations: [Unspecified mononeuropathy of bilateral lower limbs] 02-02-2023 Chronic Other nervous system disorders (20 sources) Bilateral peripheral neuropathy of lower limbs; Translations: [Unspecified mononeuropathy of bilateral lower limbs] 04-28-2023 Chronic Other nervous system disorders (9 sources) Cervical myelopathy; Translations: [Disease of spinal cord, unspecified] 07-08-2024 Chronic Other nervous system disorders (1 source) Disease of spinal cord, unspecified; Translations: [Disease of spinal cord, unspecified] Onset: 07-28-2024 Chronic Other nutritional; endocrine; and metabolic disorders (20 sources) Body mass index 30+ - obesity; Translations: [Body mass index (BMI) 31.0-31.9, adult] 03-20-2021 Chronic Other nutritional; endocrine; and metabolic disorders (20 sources) Overweight in adulthood with body mass index of 25 or more but less than 30; Translations: [Body mass index (BMI) 29.0-29.9, adult] 03-20-2021 Episodic Other nutritional; endocrine; and metabolic disorders (2 sources) Body mass index 25-29 - overweight; Translations: [Body mass index (BMI) 29.0-29.9, adult] 02-18-2017 Episodic Other screening for suspected conditions (not mental disorders or infectious disease) (20 sources) Mammography abnormal; Translations: [Other abnormal and inconclusive findings on diagnostic imaging of breast] 02-02-2023 Episodic Other skin disorders (20 sources) Skin lesion; Translations: [Disorder of the skin and subcutaneous tissue, unspecified] 03-16-2018 Episodic Other skin disorders (20 sources) Disorder of nail; Translations: [Nail disorder, unspecified] 01-03-2014 Episodic Other skin disorders (20 sources) Swelling, mass, or lump in chest 06-25-2010 Episodic Other upper respiratory infections (20 sources) Sinusitis; Translations: [Chronic sinusitis, unspecified] 03-20-2021 Chronic Residual codes; unclassified (20 sources) Family history of cancer of colon; Translations: [Family history of malignant neoplasm of digestive organs] 02-02-2023 Episodic Residual codes; unclassified (20 sources) Insomnia; Translations: [Insomnia, 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-2023 Episodic Residual codes; unclassified (9 sources) Other specified postprocedural states; Translations: [History of laminectomy] 07-08-2024 Episodic Spondylosis; intervertebral disc disorders; other back problems (20 sources) Degeneration of lumbar intervertebral disc; Translations: [Other intervertebral disc degeneration, lumbar region] 09-16-2012 Chronic Spondylosis; intervertebral disc disorders; other back problems (20 sources) Lumbar radiculopathy; Translations: [Radiculopathy, lumbar region] Onset: 09-16-2023 02-02-2023 Episodic Unclassified (20 sources) Number of Children 10-21-2022 Comment on above: 4. Unclassified (20 sources) Number of Pregnancies 10-21-2022 Comment on above: 4. Unclassified (20 sources) Vaginal deliveries 10-21-2022 Comment on above: 4. Unclassified (20 sources) Follow up for multiple chronic conditions - The patient is here for follow-up of GERD, hyperlipidemia and hypertension. The patient always takes the prescribed medications. No side effects noted. The patient engages in regular exercise program 1-3 times per week. The patient's out of office blood pressure checks occur frequently. The patient states that there is no recent angina or dyspnea, there are no vision changes or weakness and weight has increased (2 pounds). Note for Multiple chronic conditions follow-up: reviewed by [facility] 04-01-2022 Unclassified (20 sources) MCR Well Adult - In general the patient feels well with minor complaints (still has burning numbness and tingling in legs and arms-- it is better w the lyrics from neuro care), has good energy level and is sleeping poorly (she never has). The patient has a balanced diet. The patient exercises none (active) and sleeps 6 hours per night. The patient denies having trouble with bathing, dressing/grooming, toileting, preparing meals and ambulating. The patient denies having trouble with grocery shopping, driving, use of telephone, housework, laundry, preparing/taking medications and finances. The patient performs monthly self breast exam. The patient has a Healthcare Power of [employer] and a Living Will. Note for MCR Well Adult: reviewed by [facility] 09-24-2021 Unclassified (20 sources) Follow Up for Multiple Chronic Conditions - The patient is here for follow-up of arthritis, GERD, hyperlipidemia, hypertension and insomnia. The patient always takes the prescribed medications. No side effects noted (does not need any refills today). The patient has an active lifestyle but no regular exercise program. The patient's out of office blood pressure checks occur frequently and dietary compliance is fairly good usually adhering to recommendations. The patient states that there is no recent angina or dyspnea, weight has increased (4 pounds) and headaches are rarely noted. Note for Multiple chronic conditions follow-up: Recently seen in ER for vertigo. reviewed by [facility] 03-20-2021 Unclassified (20 sources) Follow Up for Multiple Chronic Conditions - The patient is here for follow-up of arthritis, GERD, hyperlipidemia, hypertension and insomnia. The patient always takes the prescribed medications. No side effects noted (does not need refills). The patient has an active lifestyle but no regular exercise program (no exercise since back surgery in December). The patient's out of office blood pressure checks occur occasionally and dietary compliance is fairly good usually adhering to recommendations. The patient states that there is no recent angina or dyspnea, weight has increased (up 4 pounds) and headaches are rarely noted. 03-20-2020 Unclassified (20 sources) Follow Up for Multiple Chronic Conditions - The patient is here for follow-up of arthritis, GERD, hyperlipidemia, hypertension and insomnia. The patient always takes the prescribed medications. No side effects noted (needs refills). The patient has an active lifestyle but no regular exercise program. The patient's out of office blood pressure checks occur occasionally and dietary compliance is fairly good usually adhering to recommendations. The patient states that there is no recent angina or dyspnea, weight has decreased (down 4 pounds) and headaches are rarely noted. Note for Multiple chronic conditions follow-up: reviewed by [facility] 09-13-2019 Unclassified (20 sources) Follow up for multiple chronic conditions - The patient is here for follow-up of hyperlipidemia and hypertension. The patient always takes the prescribed medications. No side effects noted (would refills to mail order). The patient engages in regular exercise program 3-5 times per week (is having trouble with sciatica pain, was going to PT earlier this year. Continues to do exercises at home.). The patient's out of office blood pressure checks occur frequently and dietary compliance is fairly good usually adhering to recommendations. The patient states that there is no recent angina or dyspnea, weight has decreased (6lbs) and they do not have headaches. Note for Multiple chronic conditions follow-up: reviewed by [facility] 08-27-2018 Unclassified (20 sources) Follow up for multiple chronic conditions - The patient is here for follow-up of GERD, hyperlipidemia, hypertension and insomnia. The patient always takes the prescribed medications. No side effects noted. The patient has an active lifestyle but no regular exercise program. The patient's out of office blood pressure checks occur frequently. The patient states that pain is worse (leg pain). Note for Multiple chronic conditions follow-up: Mostly the R leg and thigh. This is chronic w acute exacerbations. has been through therapy in the past. 02-26-2018 Unclassified (20 sources) Follow Up for Multiple Chronic Conditions - The patient is here for follow-up of arthritis, GERD, hyperlipidemia, hypertension and insomnia. The patient always takes the prescribed medications. No side effects noted (does not need refills.). The patient engages in regular exercise program 1-3 times per week. The patient's out of office blood pressure checks occur occasionally and dietary compliance is fairly good usually adhering to recommendations. The patient states that there is no recent angina or dyspnea, pain is generally stable, weight is unchanged and headaches are noted often but not on daily basis. Note for Multiple chronic conditions follow-up: Is not fasting. Complains of toe pain on left foot. reviewed by [facility] 08-25-2017 Unclassified (20 sources) [facility] Routine Follow up - The patient is here for follow-up of hypertension, hyperlipidemia, arthritis and GERD. The patient always takes the prescribed medications. No side effects noted. (needs refill) The patient engages in regular program 3-5 time(s) per week (walks daily). The patient's out of office blood pressure checks occur occasionally and dietary compliance is fairly good usually adhering to recommendations. The patient states that there is no recent angina or dyspnea, weight is unchanged and headaches have been noticed occasionally. Note for Routine chronic follow-up: Is not fasting today. reviewed by [facility] 07-15-2016 Unclassified (20 sources) Follow Up for Multiple Chronic Conditions - The patient is here for follow-up of hypertension, hyperlipidemia and GERD. The patient always takes the prescribed medications. No side effects noted (does not need refills). The patient engages in regular exercise program 3-5 times per week (walks). The patient's out of office blood pressure checks occur occasionally (last home BP 107/75.) and dietary compliance is fairly good usually adhering to recommendations. The patient states that there is no recent angina or dyspnea, weight has decreased (down 2 pounds) and headaches are rarely noted. 01-15-2016 Unclassified (20 sources) Follow up for multiple chronic conditions - The patient is here for follow-up of hypertension, hyperlipidemia and GERD. The patient always takes the prescribed medications. No side effects noted. The patient engages in regular exercise program 1-3 times per week. The patient's out of office blood pressure checks occur frequently (reports most readings 110/70). 01-09-2015 Unclassified (20 sources) Follow Up for Multiple Chronic Conditions - The patient is here for follow-up of hypertension, hyperlipidemia and GERD. The patient always takes the prescribed medications. No side effects noted. The patient engages in regular exercise program 1-3 times per week. The patient's out of office blood pressure checks occur frequently (normal range). Note for Multiple chronic conditions follow-up: Patient states that when she rides her stationary bicycle, her right arm goes numb/tingly. Can extend up right arm if rides for a long period of time. Resolves after stops riding. Occasionally notes symptoms in her hands when driving or doing other activities that hold her arms in certain positions.Has had a runny nose and sore throat since gettng flu shot last week (is getting better). 12-28-2012 Unclassified (20 sources) Follow up for multiple chronic conditions - The patient is here for follow-up of hypertension and hyperlipidemia. The patient always takes the prescribed medications. No side effects noted. The patient has an active lifestyle but no regular exercise program. The patient's out of office blood pressure checks occur frequently (normally 115-120/70's at home). Note for Multiple chronic conditions follow-up: -Would like flu vaccine today.Does not need refills until spring. 12-23-2011 Unclassified (20 sources) [ADDITIONAL REASON] Abdominal pain - The onset of the abdominal pain has been gradual and has been occurring in an intermittent pattern for weeks. The pain is described as moderate. The pain is located in the epigastrium (mostly after eating salads; also to LUQ). The symptoms have been associated with heartburn, while the symptoms have not been associated with bloating, bloody stools, constipation or diarrhea. Note for Abdominal pain: Has not tried any OTC meds to treat. 12-23-2011 Unclassified (20 sources) Follow Up for Multiple Chronic Conditions - The patient is here for follow-up of hypertension and hyperlipidemia. The patient always takes the prescribed medications. No side effects noted. The patient has an active lifestyle but no regular exercise program. The patient's out of office blood pressure checks occur frequently (Has gotten better since adding the new medication. Has been 119's/70's and at hights 122/79 (did have a couple readings at 102/60's but felt fine then). Has only had one headache since that visit and that was day after starting med-may have been sinus related.). Note for Follow Up for Multiple Chronic Conditions: She does note a few lesions on her head and arm that she would like looked at. 12-24-2010 Unclassified (20 sources) Follow up for multiple chronic conditions - The patient is here for follow-up of hypertension and hyperlipidemia. The patient always takes the prescribed medications. No side effects noted. The patient has an active lifestyle but no regular program. The patient's out of office blood pressure checks occur frequently (Have been good at 120's/70's altho can go 100/50's in the afternoon, no lightheadedness but can feel tired. Often higher in AM (130's/80's).). Note for Follow up for multiple chronic conditions: Pt states that she has been having alot of redness on her face and wonders about rosacea since brothers and father have had it. She notes no pimples. She also states lately she has had a shaky feeling and anxiousness. She is concerned because her dad and her brother both have essential tremors and she is worried she could be starting with that. She feels at times like her head is shaking but no one else can notice it. No hand shaking or interference with activity. 12-27-2009 Unclassified (7 sources) Abdominal pain - The onset of the abdominal pain has been gradual and has been occurring in an intermittent pattern for weeks. The pain is described as moderate. The pain is located in the epigastrium (mostly after eating salads; also to LUQ). The symptoms have been associated with heartburn, while the symptoms have not been associated with bloating, bloody stools, constipation or diarrhea. Note for Abdominal pain: Has not tried any OTC meds to treat. 12-23-2011 Unclassified (7 sources) [ADDITIONAL REASON] Follow up for multiple chronic conditions - The patient is here for follow-up of hypertension and hyperlipidemia. The patient always takes the prescribed medications. No side effects noted. The patient has an active lifestyle but no regular exercise program. The patient's out of office blood pressure checks occur frequently (normally 115-120/70's at home). Note for Multiple chronic conditions follow-up: -Would like flu vaccine today.Does not need refills until spring. 12-23-2011 Unclassified (20 sources) Follow Up for Multiple Chronic Conditions - The patient is here for follow-up of arthritis, GERD, hyperlipidemia, hypertension and insomnia. The patient always takes the prescribed medications. No side effects noted (Needs refill). The patient engages in regular exercise program 3-5 times per week (stationary bike 30 minutes daily). The patient's out of office blood pressure checks occur occasionally and dietary compliance is fairly good usually adhering to recommendations. The patient states that there is no recent angina or dyspnea, weight has increased (up 2 pounds) and headaches are rarely noted. Note for Multiple chronic conditions follow-up: reviewed by [facility] 04-28-2023 Unclassified (16 sources) Follow up for multiple chronic conditions - The patient is here for follow-up of hyperlipidemia and hypertension. The patient always takes the prescribed medications. No side effects noted. The patient engages in regular exercise program 3-5 times per week. The patient's out of office blood pressure checks occur occasionally. The patient states that they do not have headaches. 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 Sx are relieved by PPI ( prilosec ) but always return if she stops. 04-26-2024 Unclassified (1 source) Low back pain, unspecified; Translations: [Low back pain, unspecified] Onset: 09-16-2023 Past or Other Problems Problem Classification Problem Date Documented Da te Episodic/Chronic Unclassified (20 sources) Hand pain - The onset of the hand pain has been acute and has been occurring in a persistent pattern for 1 month. The course has been gradually worsening. The hand pain is characterized as a moderate sharp stabbing. The hand pain is described as being located in the thumb and base of thumb. Note for Hand pain: Pain will radiate up arm. reviewed by [facility] 02-02-2023 Unclassified (20 sources) MCR Well Adult - In general the patient feels well with minor complaints (complains of neuropathy, has stopped medication for condition due to side effects.), has good energy level and is sleeping well. The patient has a balanced diet and takes supplemental vitamins. The patient exercises every other day (stationary bike) and sleeps 6 hours per night. The patient denies having trouble with bathing, dressing/grooming, toileting, preparing meals and ambulating. The patient denies having trouble with grocery shopping, driving, use of telephone, housework, laundry, preparing/taking medications and finances. The patient performs monthly self breast exam (last mammogram 04/2022). The patient has a Healthcare Power of [employer] and a Living Will. Note for [facility] Well Adult: reviewed by [facility] 10-21-2022 Unclassified (20 sources) [facility] Well Adult - In general the patient feels well with minor complaints (one leg hurts and the other feels like pins and needles), has good energy level and is sleeping well. The patient has a balanced diet. The patient exercises weekly (does physical therapy exercises) and sleeps 7 (6-7) hours per night. The patient denies having trouble with bathing, dressing/grooming, toileting, preparing meals and ambulating. The patient denies having trouble with grocery shopping, driving, use of telephone, housework, laundry, preparing/taking medications and finances. The patient performs monthly self breast exam. The patient has a Healthcare Power of [employer] and a Living Will. Note for [facility] Well Adult: reviewed by [facility] 09-18-2020 Unclassified (20 sources) Chest pain - The pain has been occurring in an intermittent pattern for weeks (2-3). The pain is described as a burning. The pain is described as being located in the epigastrium and does not radiate. The symptoms are aggravated by bending forward (will wake up in the middle of the night with burning sensation of the middle of her chest). There has been no associated abdominal pain, fever, nausea or vomiting. Note for Chest pain: Feels that solid foods such as apples and cheese will get stuck in her throat/esophagus. She can feel food going down throat.Did have issues with acid reflux in the past. Been taking Tums that will relieve the burning sensation. 08-01-2019 Unclassified (20 sources) [facility] Well Adult - In general the patient feels well with minor complaints (back and leg pain), has good energy level and is sleeping poorly. The patient has a balanced diet and takes supplemental vitamins. The patient exercises daily (back exercises) and sleeps 4 hours per night. The patient denies having trouble with bathing, dressing/grooming, toileting, preparing meals and ambulating. The patient denies having trouble with grocery shopping, driving, use of telephone, housework, laundry, preparing/taking medications and finances. The patient performs monthly self breast exam (last mammogram 10/2018). The patient has a Healthcare Power of [employer] and a Living Will. Note for [facility] Well Adult: reviewed by [facility] 03-29-2019 Unclassified (20 sources) Leg pain - The leg pain began gradually over time and has been occurring for 2 months. The symptoms have been occurring in an increasing pattern. The symptoms are described as a discomfort and dull ache. The symptoms occur when lying down (at hs). There is involvement of the lower extremities (both). Relief is provided by nothing (tylenol did early on). Note for Leg pain: Since [place] she is noticing this discomfort is worsening. Describes it as achey or burning. She also ntoices it after prolonged sitting then trying to stand. 03-11-2019 Unclassified (20 sources) Breast lump - The lump is on the right breast. The onset of the lump has been acute and has been occurring in a persistent pattern for 2 days. The course has been constant. The lump is described as non tender. The lump is described as mild. Note for Breast lump: Last mammogram 09/2017 was normal. No pain with it. 03-16-2018 Unclassified (20 sources) Muscle pain - The onset of the muscle pain has been acute and has been occurring in an intermittent pattern for 6 weeks. The course has been increasing. The muscle pain is described as a moderate dull aching (muscle tightness). Note for Muscle pain: started w left arm, that has resolved, now worse in R leg. 05-05-2017 Unclassified (20 sources) MCR Well Adult - In general the patient feels well with no complaints, has good energy level and is sleeping poorly. The patient has a balanced diet and takes supplemental vitamins. The patient exercises daily (walks) and sleeps 6 hours per night. The patient denies having trouble with grocery shopping, driving, use of telephone, housework, laundry, preparing/taking medications and finances. The patient performs monthly self breast exam. The patient has a Healthcare Power of [employer] and a Living Will. Note for [facility] Well Adult: reviewed by [facility] 02-18-2017 Unclassified (20 sources) Cold Symptoms - Symptoms include nasal congestion, purulent discharge, ear fullness, sore throat, dry cough, headache and facial pain (pressure), but do not include fever. The onset was gradual 2 week(s) ago. The symptoms occur intermittently. The patient describes this as moderate in severity and unchanged. The patient is not currently being treated for this problem. The patient has been exposed to an individual with similar symptoms. Note for Upper respiratory infection: reviewed by [facility] 12-22-2015 Unclassified (20 sources) [facility] well adult - In general the patient feels well with minor complaints, has good energy level and is sleeping well. The patient takes supplemental vitamins. The patient exercises weekly (daily 1/2hr walk, gerber once a week) and sleeps 6 hours per night. Over the past 2 weeks, the patient has not been feeling down, depressed, or hopeless or feeling little interest or pleasure in doing things. The patient denies having trouble with bathing, dressing/grooming, toileting, preparing meals and ambulating. The patient denies having trouble with grocery shopping, driving, use of telephone, housework, laundry, preparing/taking medications and finances. The patient does not perform monthly breast self exam. The patient denies falling more than once in the past 12 months. The patient has a Healthcare Power of [employer] and a Living Will. Note for [facility] well adult: reviewed by [facility] 07-11-2015 Unclassified (20 sources) Finger pain - The pain is located in the of the left thumb. Symptoms include pain and instability (reports that her left thumb will lock up and she will have to pull on the left thumb to help release it). The patient describes the pain as sharp. Symptoms are exacerbated by moving the finger (when she does certain activities; also wakes up at night with it stuck), but are not exacerbated by allowing the hand to hang down or direct pressure. Note for Finger pain: The pain of the left thumb has been occurring intermittently for the past 2 weeks. Feels like it is being pulled out of joint and if she pulls it, it clicks back to place. Is painful when stuck.About 2 weeks ago, she was helping put a front steel unloader on the a tractor and injured the fingers of her left hand (hit top of fingers and they hurt for a day or so). Did not injury her left thumb but symptoms started around that time.Would like to have middle finger of the right hand looked at as well. Denies having any pain of this finger. Notes a bump at the bottom of nail and fingernail is deformed distal to that 05-14-2015 Unclassified (20 sources) [facility] Well Adult - In general the patient feels well with no complaints. The patient has a balanced diet and takes supplemental vitamins. The patient exercises daily (walks 30 minutes daily and does [employer] classes once a week for one hour) and sleeps 7 hours per night. Over the past 2 weeks, the patient has not been feeling down, depressed, or hopeless or feeling little interest or pleasure in doing things. The patient denies having trouble with bathing, dressing/grooming, toileting, preparing meals and ambulating. The patient denies having trouble with grocery shopping, driving, use of telephone, housework, laundry, preparing/taking medications and finances. The first day of the last menstrual period was : (had hysterectomy ). The patient performs monthly self breast exam (occasionally). The patient denies falling more than once in the past 12 months. The patient does not have Healthcare Power of [employer] or Living Will (unable to remember what has been put in place for advance planning). Note for MCR Well Adult: Would to have mole checked on lower back on right side; present fpc and deemed benign by derm last year but she continues to itch it and irritate it. 07-04-2014 Unclassified (20 sources) Follow up for multiple chronic conditions - The patient is here for follow-up of hypertension, hyperlipidemia and GERD. The patient always takes the prescribed medications. No side effects noted. The patient engages in regular exercise program 1-3 times per week. The patient's out of office blood pressure checks occur occasionally. Note for Multiple chronic conditions follow-up: reports that while staining her deck this summer, she became overheated and felt overheated the rest of the day; had a severe episode 25 years ago and ever since then, has been sensitive to heat; last week on a warmer day, she felt very tired and sick; sx resolved. Works to stay hydrated. Discussed role her hctz could play in heat related symptoms and encouraged hydration and frequent breaks and avoid heat if possible. 01-03-2014 Unclassified (20 sources) [ADDITIONAL REASON] Transition into care - The patient is transitioning into care from another physician (marimar) and a summary of care was reviewed . 01-03-2014 Unclassified (20 sources) MCR well adult - In general the patient feels well with no complaints, has good energy level and is sleeping well. The patient has a balanced diet and takes supplemental vitamins. The patient exercises daily. Over the past 2 weeks, the patient has not been feeling down, depressed, or hopeless or feeling little interest or pleasure in doing things. The patient denies having trouble with bathing, dressing/grooming, toileting, preparing meals and ambulating. The patient denies having trouble with grocery shopping, driving, use of telephone, housework, laundry, preparing/taking medications and finances. Note for M[facility] well adult: reviewed by rami[facility] 06-28-2013 Unclassified (20 sources) 2 things - Has questions about dry, rough areas on left restorationism and another spot on back. Also reports low blood pressure readings since dose change in atenolol in the spring. Home monitor read 93/50 but she did not feel symptomatic. Feels better since dose change but notes the low BPs when monitors. 09-16-2012 Unclassified (20 sources) Well Adult, female - The patient feels well with minor complaints (c/o bilateral hand numbness when she does certain things. Still having right leg pain that starts in her low back and shoots down. ), has good energy level and is sleeping well. The patient has a balanced diet and takes supplemental vitamins. The patient exercises 3 - 4 times per week (depending on how much her leg is bothering her.). Note for Well Adult, female: reviewed by [facility] 06-30-2012 Unclassified (20 sources) Well Adult, female - The patient feels well with minor complaints (c/o her hands going numb frequently. She has a new lesion on the right side of her face, and an old lesion on her left back. She also states she saw ENT for the sounds she was hearing in her left ear (tinnitus), and they advised it wasn't too bad. Tinnitus had improved. She states since yesterday, she hasn't been able to hear out of that ear. Feels like there is fluid in her ear and sinuses have been congested.), has decreased energy level (since starting the new bp medication feels very tired, but is sleeping better.) and is sleeping well. The patient has a balanced diet and takes supplemental vitamins. Patient exercises none (hasn't walked since had surgery, does remain active). 06-24-2011 Unclassified (20 sources) increased bp - Pt states that about a week ago she was not feeling well. She had headache (sinus headache-hurt in teeth and ears), pressure in her teeth/face and thought it was sinus. Lasted 3-4 days and improved, used tyleno for symptom relief. Her granddaughter had the stomach flu and was over to visit and then this pt also felt sick to her stomach. While not feeling well she decided to check her bp. It has been 160's/80's and is not normally that high. She continues to just not feel right. She says she has had some pain in her left shoulder/ and down her arm. Had lipoma removed in that area in August and was doing ok but pain has started to hurt in the last week or so. No chest pressure or heaviness, no exertional pain; symptoms worse when she is resting/laying down. She attributed that to taking her bp too much. She states she has had no dizziness, and doesn't think the chest pain is necessarily related. She also says she has had the static sound in her left ear again. Was referred to ENT for that at some point, but states the medication (nasal steroid) they gave her was not helpful. She is currently on atenolol 100mg qd and rarely misses a dose. BPs had been 130's/80's.Had normal stress test 2003 for chest pain. 12-17-2010 Unclassified (20 sources) Well adult female - The patient feels well with minor complaints (Has a lump on her left shoulder. She noticed it about a 2wks ago, it is not painful and she is not sure if she has changed in size, no preceding injury. Also occasionally notes a shooting pain in left hand between 2nd and 3rd that occurs at rest without provocation, does not impair function.). 06-25-2010 Unclassified (16 sources) Transition into care - The patient is transitioning into care from another physician (marimar) and a summary of care was reviewed . 01-03-2014 Unclassified (16 sources) [ADDITIONAL REASON] Follow up for multiple chronic conditions - The patient is here for follow-up of hypertension, hyperlipidemia and GERD. The patient always takes the prescribed medications. No side effects noted. The patient engages in regular exercise program 1-3 times per week. The patient's out of office blood pressure checks occur occasionally. Note for Multiple chronic conditions follow-up: reports that while staining her deck this summer, she became overheated and felt overheated the rest of the day; had a severe episode 25 years ago and ever since then, has been sensitive to heat; last week on a warmer day, she felt very tired and sick; sx resolved. Works to stay hydrated. Discussed role her hctz could play in heat related symptoms and encouraged hydration and frequent breaks and avoid heat if possible. 01-03-2014 Unclassified (20 sources) Leg pain - The leg pain began gradually over time and has been occurring for 1 year. The symptoms have been occurring in a recurrent pattern. The symptoms are described as a ache and are moderate in severity. The symptoms occur when lying down. There is involvement of the left lower extremity, right lower extremity, left thigh and right thigh. There are no precipitating factors. Aggravating factors include walking. Relief is provided by acetaminophen (helps some). The symptoms have been associated with fatigue, poor exercise tolerance and numbness and tingling in fingers. Note for Leg pain: both legs, but left is worse, she cannot sleep due to the pain, it bothers her the most when walking or sleepingpt states she had back surgery in 2019, but she is having r flank pain since she had a coughing fit, it has hurt ever since, sharp pains reviewed by [facility] 08-10-2023 Unclassified (20 sources) MCR Well Adult - In general the patient feels well with minor complaints (Acid reflux off and on). The patient has a balanced diet. The patient exercises 3 - 4 times per week and sleeps 6 hours per night. The patient denies having trouble with bathing, dressing/grooming, toileting, preparing meals and ambulating. The patient denies having trouble with grocery shopping, driving, use of telephone, housework, laundry, preparing/taking medications and finances. The patient does not perform monthly breast self exam. 10-28-2023 Unclassified (10 sources) Pre-operative clearance - Surgical procedure(s) planned: other (ACDF C3-5). Date of procedure: (09/14/2024) Surgeon: (Dr. Valdivia with [facility]) and Location of procedure: ([facility]) There have been no problems with general anesthesia or blood/blood products. Prosthetics include eye glasses. Note for Pre-operative clearance: Dr Valdivia is doing cervical spine surgery. 08-30-2024 Results Test Name Value Interpretation Reference Range Facility MRSA/SAID NASAL SCREENon MRSA+SAID SCRN Reason for Exam: PRE OP MRSA MRSA Negative S. AUREUS S. aureus Negative Normal [facility] Comment on above: Performed By: #### M 100.651 #### [facility] [address] [place], [place], [id number] HIV Viral Load Quanton 09-05 HIV-1 RNA, PCR < 20 Normal . [facility] Comment on above: Order Comment: Reaso n for Laboratory Test SURGERY Result Comment: HIV- 1 RNA not detected The reportable range for this assay is 20 to 10,000,000 copies HIV-1 RNA/mL. Performed By: #### L 500.2500, L3100.0300, L3890.4000, BTSPAT, L501.9985, L501.5200, L100.0100 ####[facility] [id number] [place], [address] log10 HIV-1 RNA TNP Normal . [facility] Comment on above: Order Comment: Reaso n for Laboratory Test SURGERY Result Comment: Resu lt Units: [id number]/mL Unable to calculate result since non-numeric result obtained for component test. Performed at: [address] [id number] Case Assembler: Ida Shaw MD, Phone: [phone] Performed By: #### L 500.2500, L3100.0300, L3890.4000, BTSPAT, L501.9985, L501.5200, L100.0100 ####[facility] [id number] [place], [address] MR/PAT.Joel 09-05-2024 MR/PAT.ROLAN [facility] Medical Records Department [address] [place] [address] PAT - Anesthesia 09/05/24 1234 MR#: [id number] Acct: [id number] Name: DINORA DUTTA Rep #: [id number] : 1950 74 From: Russell Julio MD PCP: Dr. 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 When Was Last Pacemaker Check QUESTION #4 FULL TEXT: You/Your Family Experience fever (hyperthermia) with Anesthesia Last Oral Intake Last Oral intake: Last Oral Intake NPO since Meds taken in AM with sips of water? Meds patient instructed to take am of surgery PONV PONV - supervisor rice milling: PONV - supervisor rice milling Female Yes 08/31/24 10:11 HX of Motion Sickness No 08/31/24 10:11 HX of N/V After Surgery No 08/31/24 10:11 Non-Smoker Yes 08/31/24 10:11 Duration of Surgery greater Yes 08/31/24 10:11 than 60 minutes Number of Risk Factors 3 08/31/24 10:11 PONV Score Moderate Risk 08/31/24 10:11 Height Weight Height Weight: Anesthesia: Height Weight Height 5 ft 2 in 07/28/24 13:21 Respiratory Assessment Respiratory Assessment - supervisor rice milling: Respiratory Tract Infection Hx - supervisor rice milling Hx Respiratory Tract Infection No 08/31/24 10:11 STOP Sleep Apnea STOP Sleep Apnea - supervisor rice milling: STOP Sleep Apnea - supervisor rice milling Hx Hypertension Yes: CONTROLLED WITH MEDS 08/31/24 10:11 Hx Sleep Apnea No 08/31/24 10:11 CPAP BIPAP Do you snore loudly (louder Yes 08/31/24 10:11 than talking or can be heard Do you often feel tired/ No 08/31/24 10:11 fatigued/ sleepy during daytime? Has anyone observed you stop No 08/31/24 10:11 breathing during sleep? STOP Results Positive 08/31/24 10:11 QUESTION #5 FULL TEXT : Do you snore loudly (louder than talking or can be heard through closed doors)? 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 Specify any problems Hx of Preganancy in last 3 No 08/31/24 10:11 Months Nurse Filling Out Transfusion [email or web address] 08/31/24 10:11 Questions: Date: 08/31/24 08/31/24 10:11 Time: 10:19 08/31/24 10:11 Patient unable to answer at this time (ie. confused, unrespo /Reproduction History /Reproductive History - supervisor rice milling: /Reproductive Hx- supervisor rice milling Hx Now Gestational Age (in weeks): EDC: Hx Hx Para Hx Section SAB PFSH Medical History Wears glasses Arthritis High cholesterol Gastric reflux Non-smoker History of pain when walking History of stress test Cataract Hyperlipidemia HTN (hypertension) Home Medications ???Medication ???Instructions ???Recorded ???Last Taken ???Type atenolol 25 mg tablet 25 mg PO DAILY 11/21/19 01/12/20 H istory glucosamine 500 mg-msm 100 mg-vit 1 cap PO DAILY 11/21/19 Unknown H istory C 20 hv-sfqjq-dxdl-primrose capsule hydrochlorothiazide 25 mg tablet 25 mg PO DAILY 11/21/19 Unknown Hi story lovastatin 20 mg tablet 20 mg PO QHS 11/21/19 Unknown Hist ory multivitamin (Multiple Vitamins 1 tab PO DAILY 11/21/19 Unknown Hi story tablet) omega 7-fik-mfz-fish oil 1,000 mg 1 cap PO DAILY 11/21/19 Unknown H istory (120 mg-180 mg) capsule (Fish Oil) turmeric root extract 500 mg 500 mg PO DAILY 11/21/19 Unknown H istory capsule omepr (more content not included)... Normal [facility] Hepatitis A AB, Totalon 07- HEPATITIS A,TOT Negative Normal Negative [facility] Comment on above: Result Comment: Comm ent: The HAV total antibody assay detects both IgG and IgM but does not differentiate between them. A negative result suggests susceptibility to infection. A positive result could be due to vaccination, previously resolved infection or active infection. Testing for HAV IgM should be performed if active HAV infection is suspected. [facility] offers profiles that will automatically reflex positive HAV total antibody results to IgM (e.g., panel #[id number] HAV Antibody w/ Rfx). Performed at: [address] [id number] Case Assembler: Charles Souza PhD, Phone: [phone] Performed By: #### L 500.2500, L3100.0300, L3890.4000, BTSPAT, L501.8306, L501.5200, L100.0100 ####[facility] [id number] [place], [place], [id number] 12 Lead EKGon 09-01-2024 12 Lead EKG [facility] Cardiovascular Services [address] [place] [address] 12 Lead EKG 09/01/24 0958 MR#: [id number] Acct: [id number] Name: DINORA DUTTA Rep #: [id number] : 1950 74 From: Chente Whitmore MD Attending Dr: Dr. Guerrero Valdivia MD Status: PRE [facility] Ordering Dr: Guerrero Valdivia MD Date: 09/01/24 Location: [facility] Sex: F C Admitted: Test Reason : PREOP Blood Pressure : */* mmHG Vent. Rate : 77 BPM Atrial Rate : 77 BPM P-R Int : 188 ms QRS Dur : 72 ms QT Int : 408 ms P-R-T Axes : 54 64 59 degrees QTcB Int : 461 ms Normal sinus rhythm Normal ECG Confirmed by MYRANDA SAAVEDRA, CHENTE ([id number]), dictionary editor KENNETH VILLAGRAN ([id number]) on 09/05/2024 9:48:03 AM Referred By: Guerrero Valdivia Confirmed By: CHENTE WHITMORE MD 09/05/24 0948 Date Chente Whitmore MD CC: Dr. Guerrero Valdivia MD; Dr. Moose Barreto MD Signed Normal [facility] Basic Metabolic Profile (BMP )on 09-01-2024 BUN/CRE 19.7 RATIO Normal 10-20 [facility] Comment on above: Performed By: #### L 500.2500, L3100.0300, L3890.4000, BTSPAT, L501.9985, L501.5200, L100.0100 #### [facility] [address] [place], [address] Calcium [Mass/Vol] 9.5 mg/dL Normal 7.6-11.0 [facility] Comment on above: Performed By: #### L 500.2500, L3100.0300, L3890.4000, BTSPAT, L501.9985, L501.5200, L100.0100 #### [facility] [address] [place], [address] Chloride [Moles/Vol] 106 mmol/L Normal 98-108 [facility] Comment on above: Performed By: #### L 500.2500, L3100.0300, L3890.4000, BTSPAT, L501.9985, L501.5200, L100.0100 #### [facility] [address] [place], [address] CO2 [Moles/Vol] 23.4 mmol/L Normal 21.0-32.0 [facility] Comment on above: Performed By: #### L 500.2500, L3100.0300, L3890.4000, BTSPAT, L501.9985, L501.5200, L100.0100 #### [facility] [address] [place], [address] Creatinine [Mass/Vol] 0.92 mg/dL Normal 0.70-1.20 [facility] Comment on above: Performed By: #### L 500.2500, L3100.0300, L3890.4000, BTSPAT, L501.9985, L501.5200, L100.0100 #### [facility] [address] [place], [address] GAP 12 Normal 5-15 [facility] Comment on above: Performed By: #### L 500.2500, L3100.0300, L3890.4000, BTSPAT, L501.9985, L501.5200, L100.0100 #### [facility] [address] [place], [address] GFR/1.73 sq M.predicted among non-blacks MDRD (S/P/Bld) [Vol rate/Area] 65 mL/min/{1.73_m2} Normal >60 [facility] Comment on above: Result Comment: mL/m in/1.73m2 CKD-EPI Creatinine Equation (2020) Performed By: #### L 500.2500, L3100.0300, L3890.4000, BTSPAT, L501.9985, L501.5200, L100.0100 #### [facility] [address] [place], [address] Glucose [Mass/Vol] 114 mg/dL High 70-99 [facility] Comment on above: Performed By: #### L 500.2500, L3100.0300, L3890.4000, BTSPAT, L501.9985, L501.5200, L100.0100 #### [facility] [address] [place], [address] Potassium [Moles/Vol] 3.8 mmol/L Normal 3.3-5.1 [facility] Comment on above: Performed By: #### L 500.2500, L3100.0300, L3890.4000, BTSPAT, L501.9985, L501.5200, L100.0100 #### [facility] [address] [place], [address] Sodium [Moles/Vol] 141 mmol/L Normal 133-145 [facility] Comment on above: Performed By: #### L 500.2500, L3100.0300, L3890.4000, BTSPAT, L501.9985, L501.5200, L100.0100 #### [facility] [address] [place], [address] Urea nitrogen [Mass/Vol] 18 mg/dL Normal 4-19 [facility] Comment on above: Performed By: #### L 500.2500, L3100.0300, L3890.4000, BTSPAT, L501.9985, L501.5200, L100.0100 #### [facility] [address] [place], [address] CBC W/Diff, Automatedon 07-0 3-2024 Absolute Lymph 1.75 X10 3/uL Normal 0.83-4.51 [facility] Comment on above: Performed By: #### L 500.2500, L3100.0300, L3890.4000, BTSPAT, L501.9985, L501.5200, L100.0100 #### [facility] [address] [place], [address] Absolute Neut 3.7 X10 3/uL Normal 2.0-7.7 [facility] Comment on above: Performed By: #### L 500.2500, L3100.0300, L3890.4000, BTSPAT, L501.9985, L501.5200, L100.0100 #### [facility] [address] [place], [address] Basophils/100 WBC (Bld) 0.8 % Normal 0-1 [facility] Comment on above: Performed By: #### L 500.2500, L3100.0300, L3890.4000, BTSPAT, L501.9985, L501.5200, L100.0100 #### [facility] [address] [place], [address] Eosinophils/100 WBC (Bld) 0.8 % Normal 0-5 [facility] Comment on above: Performed By: #### L 500.2500, L3100.0300, L3890.4000, BTSPAT, L501.9985, L501.5200, L100.0100 #### [facility] [address] [place], [address] Erythrocyte distribution width (RBC) [Ratio] 13.4 % Normal 11.6-14.6 [facility] Comment on above: Performed By: #### L 500.2500, L3100.0300, L3890.4000, BTSPAT, L501.9985, L501.5200, L100.0100 #### [facility] [address] [place], [address] Hematocrit (Bld) [Volume fraction] 42.7 % Normal 37-47 [facility] Comment on above: Performed By: #### L 500.2500, L3100.0300, L3890.4000, BTSPAT, L501.9985, L501.5200, L100.0100 #### [facility] [address] [place], [address] Hemoglobin (Bld) [Mass/Vol] 14.9 g/dL Normal 12.0-15.0 [facility] Comment on above: Performed By: #### L 500.2500, L3100.0300, L3890.4000, BTSPAT, L501.9985, L501.5200, L100.0100 #### [facility] [address] [place], [address] IG% 0.300 Normal 0.0-0.9 [facility] Comment on above: Result Comment: IG% - Immature Granulocytes (promyelocytes, myelocytes and metamyelocytes) > 1% indicates that a LEFT SHIFT is Present. Performed By: #### L 500.2500, L3100.0300, L3890.4000, BTSPAT, L501.9985, L501.5200, L100.0100 #### [facility] [address] [place], [address] Lymphocytes/100 WBC (Bld) 29.0 % Normal 19-41 [facility] Comment on above: Performed By: #### L 500.2500, L3100.0300, L3890.4000, BTSPAT, L501.9985, L501.5200, L100.0100 #### [facility] [address] [place], [address] MCH (RBC) [Entitic mass] 29.3 pg Normal 27.0-32.0 [facility] Comment on above: Performed By: #### L 500.2500, L3100.0300, L3890.4000, BTSPAT, L501.9985, L501.5200, L100.0100 #### [facility] [address] [place], [address] MCHC (RBC) [Mass/Vol] 34.9 g/dL Normal 32-36 [facility] Comment on above: Performed By: #### L 500.2500, L3100.0300, L3890.4000, BTSPAT, L501.9985, L501.5200, L100.0100 #### [facility] [address] [place], [address] MCV (RBC) [Entitic vol] 84.1 fL Normal 81-99 [facility] Comment on above: Performed By: #### L 500.2500, L3100.0300, L3890.4000, BTSPAT, L501.9985, L501.5200, L100.0100 #### [facility] [address] [place], [address] Monocytes/100 WBC (Bld) 7.0 % Normal 0-10 [facility] Comment on above: Performed By: #### L 500.2500, L3100.0300, L3890.4000, BTSPAT, L501.9985, L501.5200, L100.0100 #### [facility] [address] [place], [address] Neutrophils/100 WBC (Bld) 62.1 % Normal 47-70 [facility] Comment on above: Performed By: #### L 500.2500, L3100.0300, L3890.4000, BTSPAT, L501.9985, L501.5200, L100.0100 #### [facility] [address] [place], [address] Nucleated RBC (Bld) [#/Vol] 0 10*3/uL Normal 0-5 [facility] Comment on above: Performed By: #### L 500.2500, L3100.0300, L3890.4000, BTSPAT, L501.9985, L501.5200, L100.0100 #### [facility] [address] [place], [address] Platelet mean volume (Bld) [Entitic vol] 9.9 fL Normal 6.2-12.0 [facility] Comment on above: Performed By: #### L 500.2500, L3100.0300, L3890.4000, BTSPAT, L501.9985, L501.5200, L100.0100 #### [facility] [address] [place], [address] Platelets (Bld) [#/Vol] 279 10*3/uL Normal 150-450 [facility] Comment on above: Performed By: #### L 500.2500, L3100.0300, L3890.4000, BTSPAT, L501.9985, L501.5200, L100.0100 #### [facility] [address] [place], [address] RBC (Bld) [#/Vol] 5.08 10*6/uL Normal 4.2-5.4 [facility] Comment on above: Performed By: #### L 500.2500, L3100.0300, L3890.4000, BTSPAT, L501.9985, L501.5200, L100.0100 #### [facility] [address] [place], [address] RDW SD 41.6 fl Normal 35.1-43.9 [facility] Comment on above: Performed By: #### L 500.2500, L3100.0300, L3890.4000, BTSPAT, L501.9985, L501.5200, L100.0100 #### [facility] [address] [place], [address] WBC (Bld) [#/Vol] 6.0 10*3/uL Normal 4.4-11.0 [facility] Comment on above: Performed By: #### L 500.2500, L3100.0300, L3890.4000, BTSPAT, L501.9985, L501.5200, L100.0100 #### [facility] [address] [place], [address] Hemoglobin A1con 09-01-2024 HbA1c (Bld) [Mass fraction] 6.2 % High <=5.6 [facility] Comment on above: Result Comment: Norm al < 5.7 % Prediabetic 5.7 - 6.4 % Diabetic >or= 6.5 % Please note range changes. Performed By: #### L 500.2500, L3100.0300, L3890.4000, BTSPAT, L501.9985, L501.5200, L100.0100 ####[facility] [address] [place], [place], [address] Magnesiumon 09-01-2024 Magnesium [Mass/Vol] 2.1 mg/dL Normal 1.5-2.2 [facility] Comment on above: Performed By: #### L 500.2500, L3100.0300, L3890.4000, BTSPAT, L501.9985, L501.5200, L100.0100 #### [facility] [address] [place], [place], [address] Orthopedic Visit Reporton Orthopedic Visit Report [facility] [address] [place] [address] 5 [place], [place] [address] OFFICE VISIT Date of Service: 09/01/24 MR#: [id number] Acct: [id number] Name: DINORA DUTTA Rep #: [id number] : 1950 Provider: Dr. Guerrero Valdivia MD Age/Sex: 74/F Location: [facility]ESSICA Status: Signed Intake Vital Signs 07/28/24 13:21 09/01/24 10:40 Height 5 ft 2 in 5 ft 2 in Weight: 170 lb 4 oz 166 lb BMI 31.1 30.3 Intake Visit Reasons: cervical spine Chief Complaint: Cervcal spine pre op Accompanied by: Self Is patient in pain?: Yes Pain scale (1-10): 1 Allergies Penicillins Allergy (Verified 09/01/24 10:44) Hives Medications ???Medication ???Instructions ???Recorded ???Confirmed ???Type atenolol 25 mg tablet 25 mg PO DAILY 11/21/19 09/01/24 H istory glucosamine 500 mg-msm 100 mg-vit 1 cap PO DAILY 11/21/19 09/01/24 History C 20 kp-vfipu-pcju-primrose capsule hydrochlorothiazide 25 mg tablet 25 mg PO DAILY 11/21/19 09/01/24 H istory lovastatin 20 mg tablet 20 mg PO QHS 11/21/19 09/01/24 His tory multivitamin (Multiple Vitamins 1 tab PO DAILY 11/21/19 09/01/24 H istory tablet) omega 2-unh-ugy-fish oil 1,000 mg 1 cap PO DAILY 11/21/19 09/01/24 History (120 mg-180 mg) capsule (Fish Oil) turmeric root extract 500 mg 500 mg PO DAILY 11/21/19 09/01/24 History capsule omeprazole 20 mg capsule,delayed 20 mg PO .QOD 07/08/24 09/01/24 Hi story release Have you fallen in the past year?: No PFSH Medical History Wears glasses Arthritis High cholesterol Gastric reflux Non-smoker History of pain when walking History of stress test Cataract Hyperlipidemia HTN (hypertension) Surgical History H/O removal of cyst History of lumbar laminectomy H/O: hysterectomy Family History Mother Cancer Father Heart problem Social History household members: spouse housing: house Smoking Status: Never smoker alcohol intake: never what type of physical activity do you participate in: none do you feel safe at home: Yes HPI cervical spine Details: This documentation accurately reflects the service provided and the decisions made by me, Dr. Guerrero Valdivia MD 09/01/24 1040. Part of today???s visit was documented by Brandy Stauffer MA, acting as scribe. DINORA DUTTA is a 74 year old F here today for cervical spine pre op. Patient states that she would like to discuss more about the surgery. Her pcp wanted to know if she should still take the fish oil before or after surgery. Patient states that she hasn't had any injections or physical therapy. The patient is a 74-year-old female presenting for a pre-operative consultation for cervical spine surgery. The surgery will involve working on the C3-5 vertebrae with a 1-inch transverse incision expected to heal well. The patient will have a collar and a drain post-operatively, with plans for x-rays and discharge the following day if stable. The patient has a history of essential tremor, which she perceives in her neck, although her primary care physician does not confirm this diagnosis. Her father had essential tremor, which worsened over time, requiring medication and eventually surgery. The patient denies any history of diabetes or smoking, which are risk factors for surgical complications such as infection and poor wound healing. She is advised to maintain mobility and a healthy diet post-surgery to promote healing and reduce the risk of complications. - Cardiovascular: Denies heart problems. - Respiratory: Denies lung problems. - Neurological: Reports tremor in the neck; denies tremor in the hands. - Endocrine: Denies diabetes. - General: Denies smoking history. Attestation: Documentation on this patient encounter was supported using ambient scribe technology/ voice AI technology. The patient consented to recording for the purpose of documenting the encounter. Provider reviewed content of the generated note prior to signature. 07/28/24: DINORA DUTTA is a 74 year old F here today for cervical spine MRI review. Patient states she has been having more numbness in the posterior and medial aspects of both legs. She states the numbness in the medial thigh is only above the knee but the numbness in the back of the leg goes all the way down to her feet. She denies any recent injections or treatment. She notes that her feet bother her the most because of the numbness and burning pain. 07/08/2024: DINORA DUTTA is a 74 year old F here today for lumbar spine pain. She complains of low back pain that is equal abhijeet (more content not included)... Normal [facility] AND Screen - PAT ONLYon 09-01-2024 Ab SCREEN GEL Negative Normal [facility] Comment on above: Order Comment: Surge ry Date: 09/14/24 Reason for Laboratory Test SURGERY [id number] No N N S ANTERIOR CERVICAL FUSION Performed By: #### L 500.2500, L3100.0300, L3890.4000, BTSPAT, L501.9985, L501.5200, L100.0100 #### [facility] [address] [place], [place], [id number] Cerv Spine 4 or 5 Viewson Cerv Spine 4 or 5 Views [facility] Imaging Services [address] [place], [place] [id number] Cerv Spine 4 or 5 Views MR#: [id number] Acct: [id number] Name: DINORA DUTTA Rep #: [id number] : 1950 F 74 From: Erwin Lynn MD PCP: Dr. Moose Barreto MD Status: DEP AMB Study: Cerv Spine 4 or 5 Views Date of Exam: 07/28/24 Exam# [id number] Ordering Dr: Hanny Zapata PROCEDURE: CERV SPINE 4 OR 5 VIEWS 07/28/2024 REASON FOR EXAM: CERVICAL PAIN, BALANCE ISSUES TECHNIQUE: 4 views of the cervical spine. COMPARISON: None. FINDINGS: No evidence of acute fracture or dislocation. No instability on flexion or extension views. Mcdpelbh-oy-axtsov discogenic degenerative changes of the mid/lower cervical spine. RAD/Cerv Spine 4 or 5 Views IMPRESSION: Spondylosis. Reading Location: [id number] CC: FACULTY MEMBERKatie Zapata; Dr. Guerrero Valdivia MD; Dr. Mosoe Barreto MD Clothes Shaker: Signed Normal [facility] Orthopedic Visit Reporton Orthopedic Visit Report [facility] [address] [place] [address] [address] [place] [address] OFFICE VISIT Date of Service: 07/28/24 MR#: [id number] Acct: [id number] Name: DINORA DUTTA Rep #: [id number] : 1950 Provider: Dr. Guerrero Valdivia MD Age/Sex: 74/F Location: [facility] Status: Signed Intake Vital Signs 09/16/23 07:39 07/28/24 13:21 Height 5 ft 2 in 5 ft 2 in Weight: 170 lb 4 oz BMI 31.1 Intake Visit Reasons: CERVICAL SPINE Chief Complaint: MRI Review Accompanied by: Is patient in pain?: Yes Pain scale (1-10): 4 Allergies Penicillins Allergy (Verified 07/28/24 13:22) Hives Medications ???Medication ???Instructions ???Recorded ???Confirmed ???Type atenolol 25 mg tablet 25 mg PO DAILY 11/21/19 07/28/24 H istory glucosamine 500 mg-msm 100 mg-vit 1 cap PO DAILY 11/21/19 07/28/24 History C 20 zh-rvjry-qhwp-primrose capsule hydrochlorothiazide 25 mg tablet 25 mg PO DAILY 11/21/19 07/28/24 H istory lovastatin 20 mg tablet 20 mg PO QHS 11/21/19 07/28/24 His tory multivitamin (Multiple Vitamins 1 tab PO DAILY 11/21/19 07/28/24 H istory tablet) omega 8-qfm-keb-fish oil 1,000 mg 1 cap PO DAILY 11/21/19 07/28/24 History (120 mg-180 mg) capsule (Fish Oil) turmeric root extract 500 mg 500 mg PO DAILY 11/21/19 07/28/24 History capsule omeprazole 20 mg capsule,delayed 20 mg PO QDAY 07/08/24 07/28/24 Hi story release Have you fallen in the past year?: No PFSH Medical History Cataract Hyperlipidemia HTN (hypertension) Surgical History H/O: hysterectomy Family History Mother Cancer Father Heart problem Social History household members: spouse housing: house Smoking Status: Never smoker alcohol intake: never what type of physical activity do you participate in: none do you feel safe at home: Yes HPI CERVICAL SPINE Details: This documentation accurately reflects the service provided and the decisions made by me, Dr. Guerrero Valdivia MD 07/28/24 0544. Part of today???s visit was documented by Bailey Miner ATC, acting as scribe. DINORA DUTTA is a 74 year old F here today for cervical spine MRI review. Patient states she has been having more numbness in the posterior and medial aspects of both legs. She states the numbness in the medial thigh is only above the knee but the numbness in the back of the leg goes all the way down to her feet. She denies any recent injections or treatment. She notes that her feet bother her the most because of the numbness and burning pain. 07/08/2024: DINORA DUTTA is a 74 year old F here today for lumbar spine pain. She complains of low back pain that is equal bilaterally. She reports weakness in her left leg that has progressively gotten worse. She also reports increased numbness and tingling into her left leg mostly below her knee. She feels like constant pins and needles from her knee down to her foot. She states it feels as though it is asleep all the time. She has noticed that her balance is off recently. She cannot lift her left leg up when she walks and she often trips but does not fall. She states she has a difficult time lifting her left leg up to get out of the car or do stairs. She has a hard time walking long distances and has to lean on the cart. She did complete PT last year which she reports was minimally helpful. Pt does ride an exercise bike at home which she does 5 miles per day on. She would like to discuss her options at this point. She does not have issues writing, texting or holding objects. She states the low back and leg pain are worse at night when she lays down and tries to sleep. She does not have diabetes, heart or lung issues. She has not had a stroke and does not take blood thinners. 10/02/23: DINORA DUTTA is a 73 year old F here today for lumbar spine MRI review. She had a Decompression laminectomy L4-5 on 01/12/2020 which was helpful for about a year. Pt. advises she has been going to PT 2 x weekly and states is having increased low back pain and is now experiencing pain in her right leg as well as her left. No new back injections but says that she has had several in the past with minimal benefit. She also c/o numbness and tingling in her BLE. The pain is located on the L leg towards the big and lateral calf. Same distribution in the R leg but to a lesser extent. Pain improves with sitting and leaning forward. Ortho Exam General General: Yes no acute distress Neurologic: Yes alert Psychologic: Yes reasonable and appropriate Spine SPINE TESTING CERVICAL THORACIC LUMBAR Musculoskeletal Strength 0=absent - 5=normal (more content not included)... Normal [facility] Magnetic resonance imaging r eportOrdered By: Lacey Red on 07-24-2024 Study report [facility] Imaging Services [address] [place] [address] Spine Cervical (Routine) MR#: [id number] Acct: [id number] Name: DINORA DUTTA Rep #: [id number] : 1950 F 74 From: Candido Red MD PCP: Dr. Moose Barreto MD Status: REG CL I Study:Spine Cervical (Routine) Date of Exam: 07/22/24 Exam# [id number] Ordering Dr: Yue Valdivia MD PROCEDURE: SPINE CERVICAL (ROUTINE) 07/22/2024 REASON FOR EXAM: CERVICAL MYELOPATHY TECHNIQUE: Multiplanar and multisequence images were obtained without IV contrast administration. COMPARISON: none FINDINGS: Preserved vertebral bodies height. No vertebral fractures or dislocation. Normal craniometric measures of the craniovertebral junction Cervical spondylodegenerative changes evident by multilevel anterior marginal osteophytic lipping and subchondral degenerative marrow signal of mixed Modio I and Modio II of the examined vertebral end plateswith variable degrees of reduced bright T2 signal of the intervertebral discs. C1-C2: Atlantodens interval is preserved. Odontoid process and atlantoaxial joint appear normal. Mild atlanto-axial degenerative changes. C2-C3: a 1.5 mm diffuse disc bulge along with bilateral uncovertberal arthropathy indenting the theca encroaching upon the related neural exit foramina inducing moderate exiting nerve roots compression. C3-C4: a 4 mm diffuse disc bulge along with bilateral uncovertberal arthropathy & hypertrophied Ligamenta flava indenting the cord encroaching upon the related neural exit foramina inducing moderate to marked exiting nerve roots compression. C4-C5: a 5.8 mm diffuse disc bulge with left foraminal protrusion along with bilateral uncovertberal arthropathy & hypertrophied Ligamenta flava indenting the cord encroaching upon the related neural exit foramina inducing moderate to marked right and marked left exiting nerve roots compression. C5-C6: a 3.5 mm diffuse disc bulge with left foraminal protrusion along with bilateral uncovertberal arthropathy indenting the theca encroaching upon the related neural exit foramina inducing moderate to marked right and marked left exiting nerve roots compression. C6-C7: a 3 mm diffuse disc bulge with left foraminal protrusion along with bilateral uncovertberal arthropathy indenting the theca encroaching upon the related neural exit foramina inducing moderate to marked right and marked left exiting nerve roots compression. C7-T1: There is no significant disc pathology. Normal morphology of the ligamentum flava. No arthropathy of the uncovertebral joints. No significant spinal canal stenosis noted. Normal appearance of the examined cervical cord and cranio-cervical junction. No marrow infiltrative lesions. No paraspinal soft tissue masses. MRI/Spine Cervical (Routine) IMPRESSION: Straightening of cervical curve denoting myospasm. Cervical spondylodegenerative changes with multilevel disc changes along with uncovertberal arthropathy inducing spinal canal and neural foraminal compromise as detailed. Reading Location: [place] [address] CC: Dr. Guerrero Valdivia MD; Dr. Moose Barreto MD ~ Clothes Shaker: Signed [facility] Spine Cervical (Routine)on 07-22-2024 Spine Cervical (Routine) [facility] Imaging Services [address] [place] [id number] Spine Cervical (Routine) MR#: [id number] Acct: [id number] Name: DINORA DUTTA Rep #: [id number] : 1950 F 74 From: Lacey roy MD PCP: Dr. Moose Barreto MD Status: REG CLI Study: Spine Cervical (Routine) Date of Exam: Exam# [id number] Ordering Dr: Guerrero Valdivia MD PROCEDURE: SPINE CERVICAL (ROUTINE) 07/22/2024 REASON FOR EXAM: CERVICAL MYELOPATHY TECHNIQUE: Multiplanar and multisequence images were obtained without IV contrast administration. COMPARISON: none FINDINGS: Preserved vertebral bodies height. No vertebral fractures or dislocation. Normal craniometric measures of the craniovertebral junction Cervical spondylodegenerative changes evident by multilevel anterior marginal osteophytic lipping and subchondral degenerative marrow signal of mixed Modio I and Modio II of the examined vertebral end plates with variable degrees of reduced bright T2 signal of the intervertebral discs. C1-C2: Atlantodens interval is preserved. Odontoid process and atlantoaxial joint appear normal. Mild atlanto-axial degenerative changes. C2-C3: a 1.5 mm diffuse disc bulge along with bilateral uncovertberal arthropathy indenting the theca encroaching upon the related neural exit foramina inducing moderate exiting nerve roots compression. C3-C4: a 4 mm diffuse disc bulge along with bilateral uncovertberal arthropathy hypertrophied Ligamenta flava indenting the cord encroaching upon the related neural exit foramina inducing moderate to marked exiting nerve roots compression. C4-C5: a 5.8 mm diffuse disc bulge with left foraminal protrusion along with bilateral uncovertberal arthropathy hypertrophied Ligamenta flava indenting the cord encroaching upon the related neural exit foramina inducing moderate to marked right and marked left exiting nerve roots compression. C5-C6: a 3.5 mm diffuse disc bulge with left foraminal protrusion along with bilateral uncovertberal arthropathy indenting the theca encroaching upon the related neural exit foramina inducing moderate to marked right and marked left exiting nerve roots compression. C6-C7: a 3 mm diffuse disc bulge with left foraminal protrusion along with bilateral uncovertberal arthropathy indenting the theca encroaching upon the related neural exit foramina inducing moderate to marked right and marked left exiting nerve roots compression. C7-T1: There is no significant disc pathology. Normal morphology of the ligamentum flava. No arthropathy of the uncovertebral joints. No significant spinal canal stenosis noted. Normal appearance of the examined cervical cord and cranio-cervical junction. No marrow infiltrative lesions. No paraspinal soft tissue masses. MRI/Spine Cervical (Routine) IMPRESSION: Straightening of cervical curve denoting myospasm. Cervical spondylodegenerative changes with multilevel disc changes along with uncovertberal arthropathy inducing spinal canal and neural foraminal compromise as detailed. Reading Location: [place] [address] CC: Dr. Guerrero Valdivia MD; Dr. Moose Barreto MD Clothes Shaker: Signed Normal [facility] Orthopedic Visit Reporton Orthopedic Visit Report [facility] [address] [place] [address] [address] [place] [address] OFFICE VISIT Date of Service: 07/08/24 MR#: [id number] Acct: [id number] Name: DINORA DUTTA Rep #: [id number] : 1950 Provider: Dr. Guerrero Valdivia MD Age/Sex: 74/F Location: [facility] [place] Status: Signed Intake Vital Signs 09/16/23 07:39 Height 5 ft 2 in Intake Visit Reasons: LUMBAR SPINE Chief Complaint: lumbar spine Allergies Penicillins Allergy (Verified 07/08/24 08:06) Hives Medications ???Medication ???Instructions ???Recorded ???Confirmed ???Type atenolol 25 mg tablet 25 mg PO DAILY 11/21/19 07/08/24 H istory glucosamine 500 mg-msm 100 mg-vit 1 cap PO DAILY 11/21/19 07/08/24 History C 20 vq-vhoig-dksa-primrose capsule hydrochlorothiazide 25 mg tablet 25 mg PO DAILY 11/21/19 07/08/24 H istory lovastatin 20 mg tablet 20 mg PO QHS 11/21/19 07/08/24 His tory multivitamin (Multiple Vitamins 1 tab PO DAILY 11/21/19 07/08/24 H istory tablet) omega 4-adk-nsc-fish oil 1,000 mg 1 cap PO DAILY 11/21/19 07/08/24 History (120 mg-180 mg) capsule (Fish Oil) turmeric root extract 500 mg 500 mg PO DAILY 11/21/19 07/08/24 History capsule omeprazole 20 mg capsule,delayed 20 mg PO QDAY 07/08/24 07/08/24 Hi story release Have you fallen in the past year?: No PFSH Medical History (Updated 07/08/24 @ 09:[address] Guerrero Valdivia MD) Cataract Hyperlipidemia HTN (hypertension) Surgical History (Updated 07/08/24 @ 09:[address] Guerrero Valdivia MD) H/O: hysterectomy Family History Mother Cancer Father Heart problem Social History household members: spouse housing: house Smoking Status: Never smoker alcohol intake: never what type of physical activity do you participate in: none do you feel safe at home: Yes HPI LUMBAR SPINE Details: This documentation accurately reflects the service provided and the decisions made by me, Dr. Guerrero Valdivia MD 07/08/24 0800. Part of today???s visit was documented by Amaris Corey RN, acting as scribe. DINORA DUTTA is a 74 year old F here today for lumbar spine pain. She complains of low back pain that is equal bilaterally. She reports weakness in her left leg that has progressively gotten worse. She also reports increased numbness and tingling into her left leg mostly below her knee. She feels like constant pins and needles from her knee down to her foot. She states it feels as though it is asleep all the time. She has noticed that her balance is off recently. She cannot lift her left leg up when she walks and she often trips but does not fall. She states she has a difficult time lifting her left leg up to get out of the car or do stairs. She has a hard time walking long distances and has to lean on the cart. She did complete PT last year which she reports was minimally helpful. Pt does ride an exercise bike at home which she does 5 miles per day on. She would like to discuss her options at this point. She does not have issues writing, texting or holding objects. She states the low back and leg pain are worse at night when she lays down and tries to sleep. She does not have diabetes, heart or lung issues. She has not had a stroke and does not take blood thinners. 10/02/23: DINORA DUTTA is a 73 year old F here today for lumbar spine MRI review. She had a Decompression laminectomy L4-5 on 01/12/2020 which was helpful for about a year. Pt. advises she has been going to PT 2 x weekly and states is having increased low back pain and is now experiencing pain in her right leg as well as her left. No new back injections but says that she has had several in the past with minimal benefit. She also c/o numbness and tingling in her BLE. The pain is located on the L leg towards the big and lateral calf. Same distribution in the R leg but to a lesser extent. Pain improves with sitting and leaning forward. 09/16/23: DINORA DUTTA is a 73 year old F here today for low back pain. She had a Decompression laminectomy L4-5 on 01/12/2020 which was helpful for about a year. Her pain has worsened since April after a respiratory illness. Patient notes that her pain is improving slighlty. She notes that she isnt able to walk long distances. Her pain is worse at night when she is laying down. Patient complains of pain into her bilateral legs, primarily her left leg. Patient states that her pain/achiness travels into her left foot. She notes that her bilateral feet are numb. She denies any physical therapy, xrays or MRI. She takes tylenol for pain which is slightly helpful. Dinora had predominantly leg symptoms when she underwent the laminectomy surgery back in 2019 which did not improve with physical therapy and injections. (more content not included)... Normal [facility] COMPREHENSIVE METABOLIC PANE [facility] 10-22-2023 Albumin [Mass/Vol] 4.4 g/dL Normal 3.6-5.1 [facility] Comment on above: Performed By: #### 1 0231, 0910 #### [facility] [address], [address] [place] [phone] Eyeglass Inspector: Yovany Garg MD Albumin/Globulin [Mass ratio] 2.0 {ratio} Normal 1.0-2.5 [facility] Comment on above: Performed By: #### 1 0231, 3540 #### [facility] [address], [address] [place] [phone] Eyeglass Inspector: Yovany Garg MD ALP [Catalytic activity/Vol] 92 U/L Normal 37-153 [facility] Comment on above: Performed By: #### 1 0231, 7600 #### [facility] of [place] [address] Eyeglass Inspector: Yovany Garg MD ALT [Catalytic activity/Vol] 26 U/L Normal 6-29 [facility] Comment on above: Performed By: #### 1 023, 7600 #### [facility] of [address], [address] [place] [address] Eyeglass Inspector: Yovany Garg MD AST [Catalytic activity/Vol] 23 U/L Normal 10-35 [facility] Comment on above: Performed By: #### 1 023, 7600 #### [facility] [place] [address] Eyeglass Inspector: Yovany Garg MD Bilirubin [Mass/Vol] 1.6 mg/dL High 0.2-1.2 [facility] Comment on above: Performed By: #### 1 230, 0 #### [facility] [place] [address] Eyeglass Inspector: Yovany Garg MD BUN/CREATININE RATIO SEE NOTE: Normal 6-22 [facility] Comment on above: Result Comment: Not Reported: BUN and Creatinine are within reference range. Performed By: #### 1 230, 7600 #### [facility] of [address], [address] [place] [address] Eyeglass Inspector: Yovany Garg MD Calcium [Mass/Vol] 9.8 mg/dL Normal 8.6-10.4 [facility] Comment on above: Performed By: #### 1 023, 7600 #### [facility] [place] [address] Eyeglass Inspector: Yovany Garg MD Chloride [Moles/Vol] 104 mmol/L Normal 98-110 [facility] Comment on above: Performed By: #### 1 0231, 7600 #### [facility] of [address], [address] [place] [address] Eyeglass Inspector: Yovany Garg MD CO2 [Moles/Vol] 27 mmol/L Normal 20-32 [facility] Comment on above: Performed By: #### 1 0231, 7600 #### [facility] [address], [address] [place] [address] Eyeglass Inspector: Yovany Garg MD Creatinine [Mass/Vol] 0.90 mg/dL Normal 0.60-1.00 [facility] Comment on above: Performed By: #### 1 023, 7600 #### [facility] of [address], [address] [place] [address] Eyeglass Inspector: Yovany Garg MD GFR/1.73 sq M.predicted among non-blacks MDRD (S/P/Bld) [Vol rate/Area] 67 mL/min/{1.73_m2} Normal > OR = 60 [facility] Comment on above: Performed By: #### 1 023, 7600 #### [facility] [address], [address] [place] [address] Eyeglass Inspector: Yovany Garg MD Globulin (S) [Mass/Vol] 2.2 g/dL Normal 1.9-3.7 [facility] Comment on above: Performed By: #### 1 023, 7600 #### [facility] [place] [address] Eyeglass Inspector: Yovany Garg MD Glucose [Mass/Vol] 107 mg/dL High 65-99 [facility] Comment on above: Result Comment: Fasting reference interval For someone without known diabetes, a glucose value between 100 and 125 mg/dL is consistent with prediabetes and should be confirmed with a follow-up test. Performed By: #### 1 023, 7600 #### [facility] of [address], [address] [place] [address] Eyeglass Inspector: Yovany Garg MD Potassium [Moles/Vol] 4.1 mmol/L Normal 3.5-5.3 [facility] Comment on above: Performed By: #### 1 0231, 7600 #### [facility] [place] [address] Eyeglass Inspector: Yovany Garg MD Protein [Mass/Vol] 6.6 g/dL Normal 6.1-8.1 [facility] Comment on above: Performed By: #### 1 0231, 7600 #### [facility] [place] [address] Eyeglass Inspector: Yovany Garg MD Sodium [Moles/Vol] 138 mmol/L Normal 135-146 [facility] Comment on above: Performed By: #### 1 0231, 7600 #### [facility] [place] [address] Eyeglass Inspector: Yovany Garg MD Urea nitrogen [Mass/Vol] 23 mg/dL Normal 7-25 [facility] Comment on above: Performed By: #### 1 0231, 7600 #### [facility] [place] [address] Eyeglass Inspector: Yovany Garg MD LIPID PANEL, [facility] 10-01 Cholesterol [Mass/Vol] 164 mg/dL Normal <200 [facility] Comment on above: Performed By: #### 1 0231, 7600 #### [facility] [place] [address] Eyeglass Inspector: Yovany Garg MD Cholesterol in HDL [Mass/Vol] 54 mg/dL Normal > OR = 50 [facility] Comment on above: Performed By: #### 1 0231, 7600 #### [facility] [place] [address] Eyeglass Inspector: Yovany Garg MD Cholesterol in LDL [Mass/Vol] 83 mg/dL Normal [facility] Comment on above: Result Comment: Refe rence range: <100 Desirable range <100 mg/dL for primary prevention; <70 mg/dL for patients with CHD or diabetic patients with > or = 2 CHD risk factors. LDL-C is now calculated using the Hunter-Avila calculation, which is a validated novel method providing better accuracy than the Friedewald equation in the estimation of LDL-C. Hunter SS et al. [place]. 2013;310(43): 0367-9118 (http://education.[employer]/faq/QOD738) Performed By: #### 1 0231, 7600 #### [facility] [address], [address] [place] [address] Eyeglass Inspector: Yovany Garg MD Cholesterol.total/ Cholesterol in HDL [Mass ratio] 3.0 {ratio} Normal <5.0 [facility] Comment on above: Performed By: #### 1 0231, 7600 #### [facility] [place] [address] Eyeglass Inspector: Yovany Garg MD NON HDL CHOLESTEROL 110 mg/dL (calc) Normal <130 [facility] Comment on above: Result Comment: For patients with diabetes plus 1 major ASCVD risk factor, treating to a non-HDL-C goal of <100 mg/dL (LDL-C of <70 mg/dL) is considered a therapeutic option. Performed By: #### 1 0231, 7600 #### [facility] [place] [address] Eyeglass Inspector: Yovany Garg MD Triglyceride [Mass/Vol] 171 mg/dL High <150 [facility] Comment on above: Performed By: #### 1 0231, 7600 #### [facility] [place] [address] Eyeglass Inspector: Yovany Garg MD Laboratory - Chemistry and C hemistry - [facility] 10-21-2023 Albumin [Mass/Vol] 4.4 g/dL Normal 3.6 - 5.1 g/dL [facility], [facility].; [facility] Albumin/Globulin [Mass ratio] 2.0 {ratio} Normal 1.0 - 2.5 [facility], [facility].; [facility] ALP [Catalytic activity/Vol] 92 U/L Normal 37 - 153 U/L [facility], [facility].; [facility], [facility]. ALT [Catalytic activity/Vol] 26 U/L Normal 6 - 29 U/L [facility], [facility].; [facility], [facility]. AST [Catalytic activity/Vol] 23 U/L Normal 10 - 35 U/L [facility], [facility].; [facility], [facility]. Bilirubin [Mass/Vol] 1.6 mg/dL Abnormal 0.2 - 1.2 mg/dL [facility], [facility].; [facility], [facility]. Calcium [Mass/Vol] 9.8 mg/dL Normal 8.6 - 10. 4 mg/dL [facility], [facility].; [facility], [facility]. Chloride [Moles/Vol] 104 mmol/L Normal 98 - 110 mmol/L [facility], [facility].; [facility], [facility]. Cholesterol [Mass/Vol] 164 mg/dL Normal [facility], [facility].; [facility], [facility]. Cholesterol in HDL [Mass/Vol] 54 mg/dL Normal [facility], [facility].; [facility], [facility]. Cholesterol in LDL [Mass/Vol] 83 mg/dL Normal [facility], [facility].; [facility], [facility]. CO2 [Moles/Vol] 27 mmol/L Normal 20 - 32 mmol/L [facility], [facility].; [facility], [facility]. Creatinine [Mass/Vol] 0.90 mg/dL Normal 0.60 - 1.00 mg/dL [facility], [facility].; [facility], [facility]. GFR/1.73 sq M.predicted among non-blacks MDRD (S/P/Bld) [Vol rate/Area] 67 mL/min/{1.73_m2} Normal [facility], [facility].; [facility] Glucose [Mass/Vol] 107 mg/dL Abnormal 65 - 99 mg/dL [facility].; [facility] Potassium [Moles/Vol] 4.1 mmol/L Normal 3.5 - 5.3 mmol/L [facility], [facility].; [facility] Protein [Mass/Vol] 6.6 g/dL Normal 6.1 - 8.1 g/dL [facility], [facility].; [facility] Sodium [Moles/Vol] 138 mmol/L Normal 135 - 146 mmol/L [facility] Triglyceride [Mass/Vol] 171 mg/dL Abnormal [facility] Urea nitrogen [Mass/Vol] 23 mg/dL Normal 7 - 25 mg/dL [facility] No Panel Informationon 10-20 BUN/CREATININE RATIO SEE NOTE: Normal 6 - 22 [facility] CHOL/HDLC [facility]ATIO 3.0 [facility] GLOBULIN 2.2 Normal 1.9 - 3.7 [facility] NON HDL CHOLESTEROL 110 Normal [facility] Orthopedic Visit Reporton Orthopedic Visit Report [facility] [address] [place] [address] OFFICE VISIT Date of Service: 10/02/23 MR#: [id number] Acct: [id number] Name: DINORA DUTTA Rep #: [id number] : 1950 Provider: Dr. Guerrero Valdivia MD Age/Sex: 73/F Location: [facility] [place].[facility]ESSICA Status: Signed Intake Vital Signs 09/16/23 07:39 Height 5 ft 2 in Weight: 171 lb BMI 31.2 Intake Visit Reasons: LUMBAR SPINE Chief Complaint: lumbar spine Is patient in pain?: No Allergies Penicillins Allergy (Verified 10/02/23 08:19) Hives Medications ???Medication ???Instructions ???Recorded ???Confirmed ???Type atenolol 25 mg tablet 25 mg PO DAILY 11/21/19 09/16/23 History glucosamine 500 mg-msm 100 mg-vit 1 cap PO DAILY 11/21/19 09/16/23 History C 20 cp-jwmlm-jksr-primrose capsule hydrochlorothiazide 25 mg tablet 25 mg PO DAILY 11/21/19 09/16/23 History lovastatin 20 mg tablet 20 mg PO QHS 11/21/19 09/16/23 History multivitamin (Multiple Vitamins 1 tab PO DAILY 11/21/19 09/16/23 History tablet) omega 5-bhv-wjo-fish oil 1,000 mg 1 cap PO DAILY 11/21/19 09/16/23 History (120 mg-180 mg) capsule (Fish Oil) turmeric root extract 500 mg 500 mg PO DAILY 11/21/19 09/16/23 History capsule Have you fallen in the past year?: No PFSH Medical History Hyperlipidemia HTN (hypertension) Surgical History H/O: hysterectomy Family History Mother Cancer Father Heart problem Social History household members: spouse housing: house Smoking Status: Never smoker alcohol intake: never what type of physical activity do you participate in: none do you feel safe at home: Yes HPI LUMBAR SPINE Chief Complaint: lumbar spine Details: This documentation accurately reflects the service provided and the decisions made by me, Dr. Guerrero Valdviia MD 10/02/23 0817. Part of today???s visit was documented by [ ], acting as scribe. DINORA DUTTA is a 73 year old F here today for lumbar spine MRI review. She had a Decompression laminectomy L4-5 on 01/12/2020 which was helpful for about a year. Pt. advises she has been going to PT 2 x weekly and states is having increased low back pain and is now experiencing pain in her right leg as well as her left. No new back injections but says that she has had several in the past with minimal benefit. She also c/o numbness and tingling in her BLE. The pain is located on the L leg towards the big and lateral calf. Same distribution in the R leg but to a lesser extent. Pain improves with sitting and leaning forward. 09/16/23: DINORA DUTTA is a 73 year old F here today for low back pain. She had a Decompression laminectomy L4-5 on 01/12/2020 which was helpful for about a year. Her pain has worsened since April after a respiratory illness. Patient notes that her pain is improving slighlty. She notes that she isnt able to walk long distances. Her pain is worse at night when she is laying down. Patient complains of pain into her bilateral legs, primarily her left leg. Patient states that her pain/achiness travels into her left foot. She notes that her bilateral feet are numb. She denies any physical therapy, xrays or MRI. She takes tylenol for pain which is slightly helpful. Dinora had predominantly leg symptoms when she underwent the laminectomy surgery back in 2019 which did not improve with physical therapy and injections. She did get good relief from the decompression surgery. However the symptoms have come back and continue to bother her mostly in bilateral buttock region now this is more on the left than the right side into the lower extremities along the lateral thigh and lateral leg into the dorsum of the foot. Prior to the 2019 surgery her symptoms were more than the right. She has not had any physical therapy or injections after the surgery. She had a severe bout of pain in April that lasted up to July. She is able to walk 1 block distance after which she has to find a place to sit down. She denies any known malignancies in the past. She is nondiabetic. Ortho Exam General General: Yes no acute distress Neurologic: Yes alert and Yes oriented x3 Spine SPINE TESTING CERVICAL THORACIC LUMBAR Musculoskeletal Strength 0=absent - 5=normal Details: Exam to the back shows midline paraspinal tenderness in lower lumbar spine. Neurologic evaluation of lower extremity shows 5 x 5 power normal shows normal sensations in all dermatomes. There is no hyperreflexia lower extremities. Coding Level of Care Code Off vis,est,level 4 Diagnoses Bony sclerosis Q78.2 Other intervertebral disc degeneration, lumbar region M51.36 T (more content not included)... Normal [facility] CREATININE FINGERSTICKon CREATININE WB < 1.0 Normal 0.55-1.02 [facility] Comment on above: Performed By: #### L 9100.0200 #### [facility] [address] [place], [place], [address] EGFR WB > 60.0000 Normal >60 [facility] Comment on above: Performed By: #### L 9100.0200 #### [facility] [address] [place], [place], [address] Spine Lumbar W/WO Contraston 09-30-2023 Spine Lumbar W/WO Contrast [facility] Imaging Services [address] [place], [place] [address] Spine Lumbar W/WO Contrast MR#: [id number] Acct: [id number] Name: DINORA DUTTA Rep #: [id number] : 1950 F 73 From: Johan Schroeder MD PCP: Dr. Moose Barreto MD Status: REG CLI Study: Spine Lumbar W/WO Contrast Date of Exam: 09/01 03/25 Exam# [id number] Ordering Dr: Guerrero Valdivia MD [id number] STUDY: MRI LUMBAR SPINE WITH AND WITHOUT CONTRAST REASON FOR EXAM: Female, 73 years old. Pain -- -- L3 Sclerosis and a prior laminectomy TECHNIQUE: Standardized fat and water weighted pulse sequences were obtained in the sagittal and axial planes. IV 15 ml clariscan was administered for the contrast portion of the examination. COMPARISON: X-ray 09/16/2023 FINDINGS: T12-L1: Normal endplates. Normal disc height, hydration and morphology. Normal bilateral facet joints. Normal central canal and bilateral lateral recesses. Normal bilateral intervertebral neural foramina. Normal lumbar lordosis. Mild S-shaped scoliosis with mild levoscoliosis centered at L4/L5. Normal conus medullaris that terminates at the T12. L1-2: Normal endplates. Normal disc height, hydration and morphology. Normal bilateral facet joints. Normal central canal and bilateral lateral recesses. Normal bilateral intervertebral neural foramina. L2-3: Mild bilateral facet hypertrophy and severe ligament flavum hypertrophy. Mild bilateral disc protrusion reduces moderate spinal stenosis with mild right neural foraminal stenosis and moderate left neural foraminal stenosis. L3-4: Moderate bilateral facet hypertrophy and severe ligament flavum hypertrophy. Large broad disc protrusion produces severe spinal stenosis with near total obliteration of the spinal canal and moderate bilateral neural foraminal stenosis with abutment of the exiting L3 nerve roots bilaterally. L4-5: Status post posterior decompression. Severe bilateral facet hypertrophy. 5 mm of anterolisthesis of L4 on L5 with a mild broad disc protrusion produces mild spinal stenosis relieved by the posterior decompression and moderate bilateral neural foraminal stenosis with abutment of the exiting L4 nerve root laterally. L5-S1: Moderate bilateral facet hypertrophy and ligament flavum hypertrophy. Moderate broad disc protrusion reduces moderate spinal stenosis with moderate bilateral lateral recess stenosis with abutment of S1 roots bilaterally and moderate bilateral neural foraminal stenosis with abutment of the L4 nerve root laterally. Normal visualized sacral ala. 4 cm oval mass of fat intensity of the posterior aspect of the right psoas muscle consistent with an intramuscular lipoma. There is no demonstrated abnormal enhancement. MRI/Spine Lumbar W/WO Contrast IMPRESSION: Postsurgical changes and degenerative disc disease as described above. Electronically Signed: Johan Schroeder MD at 9:19 EDT , CC: Dr. Guerrero Valdivia MD; Dr. Moose Barreto MD Clothes Shaker: Signed Normal [facility] L/S Spine Min 4 Viewson 08-30 L/S Spine Min 4 Views [facility] [address] [place] [address] L/S Spine Min 4 Views MR#: [id number] Acct: [id number] Name: DINORA DUTTA Rep #: [id number] : 1950 F 73 From: Johan Schroeder MD PCP: Dr. Moose Barreto MD Status: DEP AMB Study: L/S Spine Min 4 Views Date of Exam: 09/16/23 Exam# [id number] Ordering Dr: Guerrero Valdivia MD [id number] STUDY: X-RAY - LUMBAR SPINE REASON FOR EXAM: Female, 73 years old. BACK PAIN TECHNIQUE: 4 view(s) of the lumbar spine were obtained. COMPARISON: 01/12/2020 FINDINGS: Normal lumbar lordosis. Mild dextroscoliosis centered at L1. 2 mm of anterolisthesis of L3 on L4 which is unchanged on the flexion and extension views. There is multilevel endplate spondylosis of the lumbar vertebrae. There is multi-level degenerative disc disease with multi-level disc space narrowing. There is multilevel facet hypertrophy. The soft tissue structures are unremarkable. RAD/L/S Spine Min 4 Views IMPRESSION: 1. 2 mm of anterolisthesis of L3 on L4 which is unchanged on the flexion and extension views. 2. Mild dextroscoliosis with degenerative disc disease. Electronically Signed: Johan Schroeder MD at 16:58 EDT , CC: Dr. Guerrero Valdivia MD; Dr. Moose Barreto MD Clothes Shaker: Signed Normal [facility] Orthopedic Visit Reporton Orthopedic Visit Report [facility] [address] [place] [address] OFFICE VISIT Date of Service: 09/16/23 MR#: [id number] Acct: [id number] Name: DINORA DUTTA Rep #: [id number] : 1950 Provider: Dr. Guerrero Valdivia MD Age/Sex: 73/F Location: [facility] [place].[facility] Status: Signed Intake Vital Signs 01/14/20 12:37 09/16/23 07:39 Height 5 ft 2 in 5 ft 2 in Weight: 171 lb BMI 31.2 Intake Visit Reasons: LUMBAR SPINE Chief Complaint: laminectomy Accompanied by: Self Is patient in pain?: Yes Pain scale (1-10): 4 Allergies Penicillins Allergy (Verified 09/16/23 07:44) Hives Medications ???Medication ???Instructions ???Recorded ???Confirmed ???Type atenolol 25 mg tablet 25 mg PO DAILY 11/21/19 09/16/23 History glucosamine 500 mg-msm 100 mg-vit 1 cap PO DAILY 11/21/19 09/16/23 History C 20 jg-lfycz-qjfe-primrose capsule hydrochlorothiazide 25 mg tablet 25 mg PO DAILY 11/21/19 09/16/23 History lovastatin 20 mg tablet 20 mg PO QHS 11/21/19 09/16/23 History multivitamin (Multiple Vitamins 1 tab PO DAILY 11/21/19 09/16/23 History tablet) omega 3-ojp-bcs-fish oil 1,000 mg 1 cap PO DAILY 11/21/19 09/16/23 History (120 mg-180 mg) capsule (Fish Oil) turmeric root extract 500 mg 500 mg PO DAILY 11/21/19 09/16/23 History capsule Have you fallen in the past year?: No PFSH Medical History (Updated 09/16/23 @ 09:[address] Guerrero Valdivia MD) Hyperlipidemia HTN (hypertension) Surgical History (Updated 01/12/20 @ 14:[address] Mamadou Hu, ) H/O: hysterectomy Family History (Updated 11/21/19 @ 13:09 by Randee Lemus) Mother Cancer Father Heart problem Social History (Updated 06/06/20 @ 10:[address] Mamadou Hu, DO) household members: spouse housing: house Smoking Status: Never smoker alcohol intake: never what type of physical activity do you participate in: none do you feel safe at home: Yes HPI LUMBAR SPINE Details: This documentation accurately reflects the service provided and the decisions made by me, Dr. Guerrero Valdivia MD 09/16/23 0736. Part of today???s visit was documented by [ ], acting as scribe. DINORA DUTTA is a 73 year old F here today for low back pain. She had a Decompression laminectomy L4-5 on 01/12/2020 which was helpful for about a year. Her pain has worsened since April after a respiratory illness. Patient notes that her pain is improving slighlty. She notes that she isnt able to walk long distances. Her pain is worse at night when she is laying down. Patient complains of pain into her bilateral legs, primarily her left leg. Patient states that her pain/achiness travels into her left foot. She notes that her bilateral feet are numb. She denies any physical therapy, xrays or MRI. She takes tylenol for pain which is slightly helpful. Dinora had predominantly leg symptoms when she underwent the laminectomy surgery back in 2019 which did not improve with physical therapy and injections. She did get good relief from the decompression surgery. However the symptoms have come back and continue to bother her mostly in bilateral buttock region now this is more on the left than the right side into the lower extremities along the lateral thigh and lateral leg into the dorsum of the foot. Prior to the 2019 surgery her symptoms were more than the right. She has not had any physical therapy or injections after the surgery. She had a severe bout of pain in April that lasted up to July. She is able to walk 1 block distance after which she has to find a place to sit down. She denies any known malignancies in the past. She is nondiabetic. Ortho Exam General General: Yes no acute distress Neurologic: Yes alert and Yes oriented x3 Spine SPINE TESTING CERVICAL THORACIC LUMBAR Musculoskeletal Strength 0=absent - 5=normal Details: Exam to the back shows midline paraspinal tenderness in lower lumbar spine. Neurologic evaluation of lower extremity shows 5 x 5 power normal shows normal sensations in all dermatomes. There is no hyperreflexia lower extremities. 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 These show navid (more content not included)... Normal [facility] 3D MAMM BILAT SCREENon 07-20 3D MAMM BILAT SCREEN [place] [id number] Patient: DINORA DUTTA Phone#: : [phone] Age: 73 Gender: F Pt. Type: Out Account: [id number] Location: [facility] Ordering: MOOSE BARRETO Exam Date: 07/21/2023/10:49 Family Phys: Charge Code: [id number] Physician: [place] Order #: [id number] Dose#: PROCEDURE: BILATERAL SCREENING BREAST TOMOSYNTHESIS MAMMOGRAM WITH CAD COMPARISON: [facility], 3D BILAT SCREEN, 10/28/2021, 14:21. [facility], 3D LT SPOT VIEWS, 10/28/2021, 14:56. [facility], 3D UNILAT LT DIAGNOSTIC, 04/09/2022, 9:53. INDICATIONS: Screening. BREAST COMPOSITION: Scattered areas fibroglandular density. FINDINGS: DIAGNOSTIC CATEGORY 1--NEGATIVE NO CHANGE FROM COMPARISON ASSESSMENT. v RIGHT BREAST: No significant suspicious finding. No significant change has occurred. LEFT BREAST: No significant suspicious finding. No significant change has occurred. RECOMMENDATIONS: ROUTINE MAMMOGRAM AND CLINICAL EVALUATION IN 12 MONTHS. PLEASE NOTE: A NORMAL MAMMOGRAM DOES NOT EXCLUDE THE POSSIBILITY OF BREAST CANCER. A CLINICALLY SUSPICIOUS PALPABLE LUMP SHOULD BE BIOPSIED. THIS FACILITY UTILIZES A REMINDER SYSTEM TO ENSURE THAT ALL PATIENTS RECEIVE REMINDER LETTERS FOR APPOINTMENTS. THIS INCLUDES REMINDERS FOR ROUTINE MAMMOGRAMS, DIAGNOSITC MAMMOGRAMS, OR OTHER BREAST IMAGING INTERVENTIONS WHEN APPROPRIATE. THIS PATIENT WILL BE PLACED IN THE APPROPRIATE REMINDER SYSTEM. Dictated by: Ivana Huang MD on 07/21/2023 at 12:25 Approved by: Ivana Huang MD on 07/21/2023 at 12:30 Normal [facility] - Chemistry and C hemistry - challengeon 10-14-2022 Albumin [Mass/Vol] 4.5 g/dL Normal 3.6 - 5.1 g/dL [facility], [facility].; [facility] Albumin/Globulin [Mass ratio] 2.0 {ratio} Normal 1.0 - 2.5 [facility], [facility].; [facility], [facility]. ALP [Catalytic activity/Vol] 85 U/L Normal 37 - 153 U/L [facility], [facility].; [facility], [facility]. ALT [Catalytic activity/Vol] 23 U/L Normal 6 - 29 U/L [facility], [facility].; [facility], [facility]. AST [Catalytic activity/Vol] 25 U/L Normal 10 - 35 U/L [facility], [facility].; [facility], [facility]. Bilirubin [Mass/Vol] 1.5 mg/dL Abnormal 0.2 - 1.2 mg/dL [facility], [facility].; [facility], [facility]. Calcium [Mass/Vol] 10.0 mg/dL Normal 8.6 - 10. 4 mg/dL [facility], [facility].; [facility], [facility]. Chloride [Moles/Vol] 105 mmol/L Normal 98 - 110 mmol/L [facility], [facility].; [facility], [facility]. Cholesterol [Mass/Vol] 162 mg/dL Normal [facility], [facility].; [facility], [facility]. Cholesterol in HDL [Mass/Vol] 49 mg/dL Abnormal [facility].; [facility], [facility]. Cholesterol in LDL [Mass/Vol] 85 mg/dL Normal [facility], [facility].; [facility], [facility]. CO2 [Moles/Vol] 24 mmol/L Normal 20 - 32 mmol/L [facility], [facility].; [facility], [facility]. Creatinine [Mass/Vol] 0.91 mg/dL Normal 0.60 - 1.00 mg/dL [facility], [facility].; [facility], [facility]. GFR/1.73 sq M.predicted among non-blacks MDRD (S/P/Bld) [Vol rate/Area] 66 mL/min/{1.73_m2} Normal [facility], [facility].; [facility] Glucose [Mass/Vol] 112 mg/dL Abnormal 65 - 99 mg/dL [facility].; [facility] Potassium [Moles/Vol] 4.4 mmol/L Normal 3.5 - 5.3 mmol/L [facility], [facility].; [facility] Protein [Mass/Vol] 6.8 g/dL Normal 6.1 - 8.1 g/dL [facility].; [facility] Sodium [Moles/Vol] 140 mmol/L Normal 135 - 146 mmol/L [facility]; [facility] Triglyceride [Mass/Vol] 185 mg/dL Abnormal [facility]; [facility] Urea nitrogen [Mass/Vol] 18 mg/dL Normal 7 - 25 mg/dL [facility].; [facility] No Panel Informationon 10-14 BUN/CREATININE RATIO SEE NOTE: Normal - [facility].; [facility] CHOL/HDLC RATIO 3.3 Normal [facility]; [facility] GLOBULIN 2.3 Normal 1.9 - 3.7 [facility]; [facility] NON HDL CHOLESTEROL 113 Normal [facility]; [facility] Laboratory - Chemistry and C hemistry - challengeon 09-17-2021 Albumin [Mass/Vol] 4.3 g/dL Normal 3.6 - 5.1 g/dL [facility].; [place] [facility], [facility]. Albumin/Globulin [Mass ratio] 1.8 {ratio} Normal 1.0 - 2.5 [facility]; [place] [facility]. ALP [Catalytic activity/Vol] 89 U/L Normal 37 - 153 U/L [facility].; [facility]. ALT [Catalytic activity/Vol] 22 U/L Normal 6 - 29 U/L [facility].; [place] [employer], [facility]. AST [Catalytic activity/Vol] 20 U/L Normal 10 - 35 U/L [facility].; [place] [facility]. Bilirubin [Mass/Vol] 1.5 mg/dL Abnormal 0.2 - 1.2 mg/dL [facility].; [place] [facility], [facility]. Calcium [Mass/Vol] 9.6 mg/dL Normal 8.6 - 10. 4 mg/dL [facility].; [facility]. Chloride [Moles/Vol] 104 mmol/L Normal 98 - 110 mmol/L [facility].; [facility], [facility]. Cholesterol [Mass/Vol] 167 mg/dL Normal [facility].; [facility], [facility]. Cholesterol in HDL [Mass/Vol] 50 mg/dL Normal [facility].; [facility], [facility]. Cholesterol in LDL [Mass/Vol] 85 mg/dL Normal [facility], [facility].; [facility], [facility]. CO2 [Moles/Vol] 29 mmol/L Normal 20 - 32 mmol/L [facility].; [facility], [facility]. Creatinine [Mass/Vol] 0.90 mg/dL Normal 0.60 - 1.00 mg/dL [facility].; [facility], [facility]. GFR/1.73 sq M.predicted among non-blacks MDRD (S/P/Bld) [Vol rate/Area] 68 mL/min/{1.73_m2} Normal [facility].; [facility], [facility]. Glucose [Mass/Vol] 97 mg/dL Normal 65 - 99 mg/dL [facility].; [facility], [facility]. Potassium [Moles/Vol] 4.0 mmol/L Normal 3.5 - 5.3 mmol/L [facility].; [facility], [facility]. Protein [Mass/Vol] 6.7 g/dL Normal 6.1 - 8.1 g/dL [facility], [facility].; [facility], [facility]. Sodium [Moles/Vol] 141 mmol/L Normal 135 - 146 mmol/L [facility], [facility].; [facility], [facility]. Triglyceride [Mass/Vol] 234 mg/dL Abnormal [facility].; [facility], [facility]. Urea nitrogen [Mass/Vol] 19 mg/dL Normal 7 - 25 mg/dL [facility], [facility].; [facility], [facility]. No Panel Informationon 09-17 BUN/CREATININE RATIO NOT APPLICABLE Normal 6 - 22 [facility], [facility].; [place] [facility] CHOL/HDLC RATIO 3.3 Normal [facility].; [facility], [facility]. GLOBULIN 2.4 Normal 1.9 - 3.7 [facility], [facility].; [facility] NON HDL CHOLESTEROL 117 Normal [facility].; [facility], [facility] [facility] BUTCH BY IFA SCREENon 06-19-19 22 Nuclear Ab IF (S) [Titer] Negative Normal Negative [facility] Comment on above: Order Comment: Sheyla pace Type: BLOOD SPECIMEN Ordering Facility: [facility] Address: [address] [place] [address] Result Comment: Anti -nuclear antibody test is used as an aid in diagnosis of systemic autoimmune diseases. Where positive and clinically warranted, follow-up using disease-specific testing is recommended. Low positive titers are not uncommon with advanced age, certain chronic infections, and malignancies among others. Test methodology: Indirect fluorescence immunoassay (IFA) using HEp-2 cells. Performed By: #### H BA1C, IFESC, ANAIFS, RF, XSSAB, 24630-4, 50986-9, B1WB, ANCA #### [facility] CLIA [id number] [address] [place] [address] [place] ANTI NEUTRO CYTO ABon 2021 INTERPRETATION (ANCA) Test not performed on samples negative by immunofluorecense. Normal [facility] Comment on above: Order Comment: Sheyla pace Type: BLOOD SPECIMEN Ordering Facility: [facility] Address: [address] [place] [address] Performed By: #### H BA1C, IFESC, ANAIFS, RF, XSSAB, 19691-9, 28050-6, B1WB, ANCA #### [facility] CLIA [id number] [address] [place] [address] [place] Neutrophil cytoplasmic Ab.classic IF Ql (S) Negative Normal Negative [facility] Comment on above: Order Comment: Sheyla pace Type: BLOOD SPECIMEN Ordering Facility: [facility] Address: [address] [place] [address] Performed By: #### H BA1C, IFESC, ANAIFS, RF, XSSAB, 18664-3, 15337-9, B1WB, ANCA #### [facility] CLIA [id number] [facility] [place] [address] [place] Neutrophil cytoplasmic Ab.perinuclear IF Ql (S) Negative Normal Negative [facility] Comment on above: Order Comment: Speci men Type: BLOOD SPECIMEN Ordering Facility: [facility] Address: [address] [place] [address] Performed By: #### H BA1C, IFESC, ANAIFS, RF, XSSAB, 02367-0, 18663-4, B1WB, ANCA #### [facility] CLIA [id number] [address] [place] [address] OF MIGUEL STAFF REVIEW (ANCA) No review performed. Normal [facility] Comment on above: Order Comment: Speci [facility] Type: BLOOD SPECIMEN Ordering Facility: [facility] Address: [address] [place] [address] Result Comment: Staf f review not performed on samples negative by immunofluorescences. Performed By: #### H BA1C, IFESC, ANAIFS, RF, XSSAB, 61367-0, 21040-3, B1WB, ANCA #### [facility] CLIA [id number] [address] [place] [address] [place] Folate [facility]-19 22 Folate [Mass/Vol] ng/mL Normal >4.7 [facility] Comment on above: Order Comment: Speci men Type: BLOOD SPECIMEN Ordering Facility: [facility] Address: [address] [place] [address] Result Comment: A re sult of > 20 ng/mL is not necessarily indicative of a pathologic or treatable condition: it reflects a limitation of the test methodology. Assay reference range: 4.8 to 24.2 ng/mL. Suitable for detection of folate deficiency. Reference: Folate III (Folate III) [package insert V 1.0 Setswana]. [facility], [place], [place]: December 2014. Performed By: #### 2 284-8 #### [facility] CLIA [id number] [address] [place] [address] [place] #### VITB6 #### [facility] CLIA [id number] [address] [place] [address] HCV Ab Ser Qlon 06-18-2021 HCV Ab Ql (S) Negative Normal Negative [facility] Comment on above: Order Comment: Sheyla pace Type: BLOOD SPECIMEN Ordering Facility: [facility] Address: [facility] [place] [address] Result Comment: The result suggests no evidence of active infection with Hepatitis C virus. Should recent infection be suspected, repeat testing may be considered 4-6 weeks after this draw. Performed By: #### H BA1C, IFESC, ANAIFS, RF, XSSAB, 71911-2, 87474-1, B1WB, ANCA #### [facility] CLIA [id number] [address] [place] [address] [place] HGB A1Con 06-18-2021 Average glucose Estimated from glycated hemoglobin (Bld) [Mass/Vol] 120 mg/dL Normal [facility] Comment on above: Order Comment: Sheyla pace Type: BLOOD SPECIMEN Ordering Facility: [facility] Address: [address] [place] [address] Result Comment: eAG: (Estimated average glucose) is a calculated value from HgbA1c and is telesales representative of the average blood glucose level in the last 2-3 month period. Performed By: #### H BA1C, IFESC, ANAIFS, RF, XSSAB, 37469-4, 42797-5, B1WB, ANCA #### [facility] CLIA [id number] [address] [place] [address] [place] HbA1c (Bld) [Mass fraction] 5.8 % High 4.3-5.[address] [facility] Comment on above: Order Comment: Sheyla pace Type: BLOOD SPECIMEN Ordering Facility: [facility] Address: [address] [place], [place] [id number] Result Comment: Amer ican Diabetes Association guidelines indicate that patients with HgbA1c in the range 5.7-6.4% are at increased risk for development of diabetes, and intervention by lifestyle modification may be beneficial. HgbA1c greater or equal to 6.5% is considered diagnostic of diabetes. Performed By: #### H BA1C, IFESC, ANAIFS, RF, XSSAB, 60028-5, 09981-9, B1WB, ANCA #### [facility] CLIA [id number] [address] [place] [address] [place] IMMUNOFIXATION SCREEN, SERUM on 06-18-2021 MPA RESULT No M protein is identified. Normal No M protein is identified. [facility] Comment on above: Order Comment: Speci men Type: BLOOD SPECIMEN Ordering Facility: [facility] Address: [address] [place] [address] Performed By: #### H BA1C, IFESC, ANAIFS, RF, XSSAB, 28669-2, 21336-4, B1WB, ANCA #### [facility] CLIA [id number] [address] [place], [place] [id number] [facility] OF [place] STAFF REVIEW (MPA) Reviewed by Jacob Sage M.D. Normal [facility] Comment on above: Order Comment: Speci men Type: BLOOD SPECIMEN Ordering Facility: [facility] Address: [address] [place] [address] Performed By: #### H BA1C, IFESC, ANAIFS, RF, XSSAB, 58918-3, 63988-9, B1WB, ANCA #### [facility] CLIA [id number] [address] [place] [address] [place] Methylmalonate SerPl-sCncon 06-18-2021 Methylmalonate [Moles/Vol] 157 nmol/L Normal 79-[address] [facility] Comment on above: Order Comment: Speci men Type: BLOOD SPECIMEN Ordering Facility: [facility] Address: [address] [place] [address] Result Comment: This test was developed and its performance characteristics determined by [facility]'s [facility] [place] ([facility]). It has not been cleared or approved by the FDA. -[facility] is regulated under CLIA as qualified to perform high-complexity testing. This test is used for clinical purposes. It should not be regarded as investigational or for research. Performed By: #### H BA1C, IFESC, ANAIFS, RF, XSSAB, 88223-0, 23282-9, B1WB, ANCA #### [facility] CLIA [id number] [facility] [place] [address] [place] RHEUMATOID FACTOR BLon 06-18 Rheumatoid factor Qn [IU]/mL Normal <[address] [facility] Comment on above: Order Comment: Speci men Type: BLOOD SPECIMEN Ordering Facility: [facility] Address: [address] [place] [address] Performed By: #### H BA1C, IFESC, ANAIFS, RF, XSSAB, 10739-5, 42663-8, B1WB, ANCA #### [facility] CLIA [id number] [address] [place] [address] [place] SJOGREN ABS SSA/SSBon 2021 ANTI-SSB QUAL Negative Normal Negative [facility] Comment on above: Order Comment: Sheyla pace Type: BLOOD SPECIMEN Ordering Facility: [facility] Address: [address] [place] [address] Result Comment: Anti -SSB (anti-La) antibody is used as an aid in diagnosis of a variety of systemic autoimmune diseases, especially for Sjogren's syndrome and systemic lupus erythematosus. Clinical correlation is required. Test Methodology: Multiplex flow immunoassay. Performed By: #### H BA1C, IFESC, ANAIFS, RF, XSSAB, 89574-5, 07196-6, B1WB, ANCA #### [facility] CLIA [id number] [facility] [place] [address] [place] Sjogrens syndrome-A extractable nuclear Ab Qn (S) <0.2 Normal <1.[address] [facility] Comment on above: Order Comment: Speci men Type: BLOOD SPECIMEN Ordering Facility: [facility] Address: [address] [place] [address] Performed By: #### H BA1C, IFESC, ANAIFS, RF, XSSAB, 10207-5, 43999-0, B1WB, ANCA #### [facility] CLIA [id number] [address] [place] [address] [place] Sjogrens syndrome-B extractable nuclear Ab Qn (S) <0.2 Normal <1.[address] [facility] Comment on above: Order Comment: Sheyla pace Type: BLOOD SPECIMEN Ordering Facility: [facility] Address: [address] [place] [address] Performed By: #### H BA1C, IFESC, ANAIFS, RF, XSSAB, 84820-7, 36109-1, B1WB, ANCA #### [facility] CLIA [id number] [address] [place] [address] [place] SSA ANTIBODY QUAL Negative Normal Negative [facility] Comment on above: Order Comment: Sheyla sanjeev Type: BLOOD SPECIMEN Ordering Facility: [facility] Address: [address] [place] [address] Result Comment: Anti -SSA (anti-Ro) antibody is used as an aid in diagnosis of a variety of systemic autoimmune diseases, Sjogren's syndrome among others. Clinical correlation is required. Test Methodology: Multiplex flow immunoassay. ??? Performed By: #### H BA1C, IFESC, ANAIFS, RF, XSSAB, 06173-0, 25934-8, B1WB, ANCA #### [facility] CLIA [id number] [address] [place] [address] [place] VITAMIN B1 (THIAMINE), WHOLE BLOODon 06-18-2021 Thiamine (Bld) [Moles/Vol] 234.1 nmol/L High 84.3-213.[address] [facility] Comment on above: Order Comment: Nereydai men Type: BLOOD SPECIMEN Ordering Facility: [facility] Address: [address] [place] [address] Result Comment: This assay measures the concentration of thiamine diphosphate (TDP), the primary active form of vitamin B1. Approximately 90 percent of vitamin B1 present in whole blood is TDP. Thiamine and thiamine monophosphate, which comprise the remaining 10 percent, are not measured. This test was developed and its performance characteristics determined by [facility] [place] ([facility] It has not been cleared or approved by the FDA. [facility] is regulated under CLIA as qualified to perform high-complexity testing. This test is used for clinical purposes. It should not be regarded as investigational or for research. Performed By: #### H ANNABEL BETANCOURT ANAIFS, RF, XSSAKedar, 39328-6, 87628-2, B1WB, ANCA #### [facility] CLIA [id number] [facility] [place] [address] [place] VITAMIN B6/PYRIDOXINon 06-18 VITAMIN B6 144.0 nmol/L High 20.0-125.[address] [facility] Comment on above: Order Comment: Speci men Type: BLOOD SPECIMEN Ordering Facility: [facility] Address: [address] [place] [address] Result Comment: INTE RPRETIVE INFORMATION: Vitamin B6 (Pyridoxal 5-Phosphate) Pyridoxal 5'-phosphate measured in a specimen collected following an 8-hour or overnight fast accurately indicates vitamin B6 nutritional status. Non-fasting specimen concentration reflects recent vitamin intake. This test was developed and its performance characteristics determined by [employer]. It has not been cleared or approved by the US Food and Drug Administration. This test was performed in a CLIA certified laboratory and is intended for clinical purposes. Performed By: [employer] [address] [place] [address] Reporter: Awilda Lay MD Performed By: #### H ANNABEL BETANCOURT ANAIFS, RF, XSSAB, 63999-8, 72459-3, B1WB, ANCA #### [facility] CLIA [id number] [address] [address] [place] Laboratory - Chemistry and C hemistry - challengeon 09-11-2020 Albumin [Mass/Vol] 4.5 g/dL Normal 3.6 - 5.1 g/dL [facility], [facility].; [place] [facility] Albumin/Globulin [Mass ratio] 2.0 {ratio} Normal 1.0 - 2.5 [facility], [facility].; [facility], [facility]. ALP [Catalytic activity/Vol] 83 U/L Normal 37 - 153 U/L [facility], [facility].; [place] [facility] ALT [Catalytic activity/Vol] 24 U/L Normal 6 - 29 U/L [facility], [facility].; [place] [facility], [employer]. AST [Catalytic activity/Vol] 22 U/L Normal 10 - 35 U/L [facility], [facility].; [place] [facility], [facility]. Bilirubin [Mass/Vol] 1.3 mg/dL Abnormal 0.2 - 1.2 mg/dL [facility], [facility].; [place] [employer] Calcium [Mass/Vol] 9.9 mg/dL Normal 8.6 - 10. 4 mg/dL [facility], [facility].; [place] [facility], [employer]. Chloride [Moles/Vol] 104 mmol/L Normal 98 - 110 mmol/L [facility], [facility].; [place] [facility] Cholesterol [Mass/Vol] 166 mg/dL Normal [facility], [facility].; [place] [facility], [employer]. Cholesterol in HDL [Mass/Vol] 58 mg/dL Normal [facility], [facility].; [place] [employer] Cholesterol in LDL [Mass/Vol] 82 mg/dL Normal [place] [facility], [facility].; [place] [employer], [employer]. CO2 [Moles/Vol] 26 mmol/L Normal 20 - 32 mmol/L [facility], [facility].; [place] [employer] Creatinine [Mass/Vol] 1.00 mg/dL Abnormal 0.60 - 0.93 mg/dL [facility], [facility].; [place] [employer] GFR/1.73 sq M.predicted among blacks MDRD (S/P/Bld) [Vol rate/Area] 65 mL/min/{1.73_m2} Normal [facility].; [facility], [facility] Glucose [Mass/Vol] 99 mg/dL Normal 65 - 99 mg/dL [facility].; [facility], [facility] Potassium [Moles/Vol] 4.3 mmol/L Normal 3.5 - 5.3 mmol/L [facility]; [facility], [facility] Protein [Mass/Vol] 6.8 g/dL Normal 6.1 - 8.1 g/dL [facility]; [facility], [facility] Sodium [Moles/Vol] 138 mmol/L Normal 135 - 146 mmol/L [facility]; [facility], [facility] Triglyceride [Mass/Vol] 154 mg/dL Abnormal [facility]; [facility], [facility] Urea nitrogen [Mass/Vol] 19 mg/dL Normal 7 - 25 mg/dL [facility]; [facility], [facility] Urea nitrogen/Creatinin e [Mass ratio] 19 mg/mg Normal 6 - 22 [facility]; [facility], [facility] No Panel Informationon 09-11 CHOL/HDLC RATIO 2.9 Normal [facility]; [facility], [facility] eGFR NON-AFR. SLOVAK 56 Abnormal [facility]; [facility], [facility] GLOBULIN 2.3 Normal 1.9 - 3.7 [facility]; [facility], [facility] NON HDL CHOLESTEROL 108 Normal [facility]; [facility], [facility] Laboratory - Chemistry and C hemistry - challengeon 03-22-2019 Albumin [Mass/Vol] 4.5 g/dL Normal 3.6 - 5.1 g/dL [facility]; [facility], [facility] Albumin/Globulin [Mass ratio] 2.1 {ratio} Normal 1.0 - 2.5 [facility]; [facility], [facility]. ALP [Catalytic activity/Vol] 96 U/L Normal 33 - 130 U/L [facility], [facility] ALT [Catalytic activity/Vol] 28 U/L Normal 6 - 29 U/L [facility].; [facility], [facility]. AST [Catalytic activity/Vol] 22 U/L Normal 10 - 35 U/L [facility], [facility].; [facility], [facility]. Bilirubin [Mass/Vol] 1.7 mg/dL Abnormal 0.2 - 1.2 mg/dL [facility], [facility].; [facility], [facility]. Calcium [Mass/Vol] 9.7 mg/dL Normal 8.6 - 10. 4 mg/dL [facility], [facility].; [facility], [facility]. Chloride [Moles/Vol] 103 mmol/L Normal 98 - 110 mmol/L [facility], [facility].; [facility], [facility]. Cholesterol [Mass/Vol] 162 mg/dL Normal [facility], [facility].; [facility], [facility]. Cholesterol in HDL [Mass/Vol] 59 mg/dL Normal [facility], [facility].; [facility], [facility]. Cholesterol in LDL [Mass/Vol] 82 mg/dL Normal [facility], [facility].; [facility], [facility]. CO2 [Moles/Vol] 33 mmol/L Abnormal 20 - 32 mmol/L [facility], [facility].; [facility], [facility]. Creatinine [Mass/Vol] 0.89 mg/dL Normal 0.60 - 0.93 mg/dL [facility], [facility].; [facility], [facility]. GFR/1.73 sq M.predicted among blacks MDRD (S/P/Bld) [Vol rate/Area] 76 mL/min/{1.73_m2} Normal [facility], [facility].; [facility] Glucose [Mass/Vol] 99 mg/dL Normal 65 - 99 mg/dL [facility].; [facility] Potassium [Moles/Vol] 3.9 mmol/L Normal 3.5 - 5.3 mmol/L [facility], [facility].; [facility] Protein [Mass/Vol] 6.6 g/dL Normal 6.1 - 8.1 g/dL [facility], [facility].; [facility] Sodium [Moles/Vol] 141 mmol/L Normal 135 - 146 mmol/L [facility] Triglyceride [Mass/Vol] 116 mg/dL Normal [facility]; [place] [facility] Urea nitrogen [Mass/Vol] 20 mg/dL Normal 7 - 25 mg/dL [facility]; [place] [employer] No Panel Informationon 03-22 BUN/CREATININE RATIO NOT APPLICABLE Normal 6 - 22 [facility]; [place] [facility] CHOL/HDLC RATIO 2.7 Normal [facility]; [place] [facility] eGFR NON-AFR. [place]OV[place] 65 Normal [facility]; [place] [employer] GLOBULIN 2.1 Normal 1.9 - 3.7 [facility]; [place] [employer] [facility] NON HDL CHOLESTEROL 103 Normal [facility]; [facility] - Chemistry and C hemistry - challengeon 02-19-2018 Albumin [Mass/Vol] 4.6 g/dL Normal 3.6 - 5.1 g/dL [facility]; [place] [employer] Albumin/Globulin [Mass ratio] 1.9 {ratio} Normal 1.0 - 2.5 [facility]; [place] [employer]. ALP [Catalytic activity/Vol] 98 U/L Normal 33 - 130 U/L [facility]; [place] [employer]. ALT [Catalytic activity/Vol] 29 U/L Normal 6 - 29 U/L [facility].; [place] [employer]. AST [Catalytic activity/Vol] 23 U/L Normal 10 - 35 U/L [facility].; [employer]. Bilirubin [Mass/Vol] 1.8 mg/dL Abnormal 0.2 - 1.2 mg/dL [facility].; [employer]. Calcium [Mass/Vol] 9.9 mg/dL Normal 8.6 - 10. 4 mg/dL [facility].; [employer]. Chloride [Moles/Vol] 103 mmol/L Normal 98 - 110 mmol/L [facility].; [employer] Cholesterol [Mass/Vol] 180 mg/dL Normal [facility].; [facility], [facility]. Cholesterol in HDL [Mass/Vol] 53 mg/dL Normal [facility].; [facility], [facility]. Cholesterol in LDL [Mass/Vol] 102 mg/dL Abnormal 0 - 100 mg/dL [facility], [facility].; [facility], [facility]. Cholesterol non HDL [Mass/Vol] 127 mg/dL Normal [facility].; [facility], [facility]. Cholesterol.total/ Cholesterol in HDL [Mass ratio] 3.4 {ratio} Normal [facility].; [facility], [facility] CO2 [Moles/Vol] 30 mmol/L Normal 20 - 32 mmol/L [facility].; [facility], [facility]. Creatinine [Mass/Vol] 0.90 mg/dL Normal 0.50 - 0.99 mg/dL [facility], [facility].; [facility], [facility]. GFR/1.73 sq M.predicted among blacks MDRD (S/P/Bld) [Vol rate/Area] 76 {ML/MIN/1.73M2} Normal [facility], [facility].; [facility], [facility]. GFR/1.73 sq M.predicted MDRD (S/P/Bld) [Vol rate/Area] 65 {ML/MIN/1.73M2} Normal [facility], [facility].; [facility], [facility]. Globulin (S) [Mass/Vol] 2.5 g/dL Normal 1.9 - 3.7 g/dL [facility], [facility].; [facility], [facility]. Glucose [Mass/Vol] 108 mg/dL Abnormal 65 - 99 mg/dL [facility].; [facility], [facility]. Potassium [Moles/Vol] 4.0 mmol/L Normal 3.5 - 5.3 mmol/L [facility], [facility].; [facility], [facility]. Protein [Mass/Vol] 7.1 g/dL Normal 6.1 - 8.1 g/dL [facility], [facility].; [facility], [facility]. Sodium [Moles/Vol] 140 mmol/L Normal 135 - 146 mmol/L [facility], [facility].; [facility] Triglyceride [Mass/Vol] 151 mg/dL Abnormal [facility], [facility].; [facility], [facility]. Urea nitrogen [Mass/Vol] 20 mg/dL Normal 7 - 25 mg/dL [facility], [facility].; [facility], [facility]. Urea nitrogen/Creatinin e [Mass ratio] 22.3 mg/mg Abnormal 6 - 22 [facility], [facility].; [facility], [facility]. Laboratory - Chemistry and C hemistry - challengeon 01-09-2017 Albumin [Mass/Vol] 4.5 g/dL Normal 3.6 - 5.1 g/dL [facility], [facility].; [facility], [facility]. Albumin/Globulin [Mass ratio] 2.0 {ratio} Normal 1.0 - 2.5 [facility], [facility].; [place] [employer] [facility], [facility]. ALP [Catalytic activity/Vol] 91 U/L Normal 33 - 130 U/L [facility], [facility].; [facility], [facility]. ALT [Catalytic activity/Vol] 27 U/L Normal 6 - 29 U/L [facility].; [place] [employer] [facility], [facility]. AST [Catalytic activity/Vol] 23 U/L Normal 10 - 35 U/L [facility], [facility].; [place] [facility], [facility]. Bilirubin [Mass/Vol] 1.5 mg/dL Abnormal 0.2 - 1.2 mg/dL [facility], [facility].; [place] [facility], [facility]. Calcium [Mass/Vol] 9.9 mg/dL Normal 8.6 - 10. 4 mg/dL [facility], [facility].; [place] [facility] [facility], [facility]. Chloride [Moles/Vol] 104 mmol/L Normal 98 - 110 mmol/L [facility], [facility].; [place] [facility], [facility]. Cholesterol [Mass/Vol] 181 mg/dL Normal [facility], [facility].; [place] [employer] [facility], [facility]. Cholesterol in HDL [Mass/Vol] 54 mg/dL Normal [facility], [facility].; [place] [facility], [facility]. Cholesterol in LDL [Mass/Vol] 105 mg/dL Abnormal 0 - 100 mg/dL [facility], [facility].; [place] [facility], [facility]. Cholesterol non HDL [Mass/Vol] 128 mg/dL Normal [facility].; [facility], [facility]. Cholesterol.total/ Cholesterol in HDL [Mass ratio] 3.4 {ratio} Normal [facility].; [facility], [facility]. CO2 [Moles/Vol] 29 mmol/L Normal 20 - 31 mmol/L [facility].; [facility], [facility]. Creatinine [Mass/Vol] 0.91 mg/dL Normal 0.50 - 0.99 mg/dL [facility].; [facility], [facility]. GFR/1.73 sq M.predicted among blacks MDRD (S/P/Bld) [Vol rate/Area] 75 {ML/MIN/1.73M2} Normal [facility].; [facility], [facility]. GFR/1.73 sq M.predicted MDRD (S/P/Bld) [Vol rate/Area] 65 {ML/MIN/1.73M2} Normal [facility], [facility].; [facility], [facility]. Globulin (S) [Mass/Vol] 2.2 g/dL Normal 1.9 - 3.7 g/dL [facility].; [facility], [facility]. Glucose [Mass/Vol] 102 mg/dL Abnormal 65 - 99 mg/dL [facility].; [facility], [facility]. Potassium [Moles/Vol] 4.1 mmol/L Normal 3.5 - 5.3 mmol/L [facility].; [facility], [facility]. Protein [Mass/Vol] 6.7 g/dL Normal 6.1 - 8.1 g/dL [facility], [facility].; [facility], [facility]. Sodium [Moles/Vol] 140 mmol/L Normal 135 - 146 mmol/L [facility], [facility].; [facility], [facility]. Triglyceride [Mass/Vol] 120 mg/dL Normal [facility].; [facility], [facility]. Urea nitrogen [Mass/Vol] 22 mg/dL Normal 7 - 25 mg/dL [facility], [facility].; [facility], [facility]. Urea nitrogen/Creatinin e [Mass ratio] 24.4 mg/mg Abnormal 6 - 22 [facility].; [facility], [facility]. Laboratory - Chemistry and C hemistry - challengeon 01-08-2016 Albumin [Mass/Vol] 4.3 g/dL Normal 3.6 - 5.1 g/dL [facility].; [place] [facility]. Albumin/Globulin [Mass ratio] 1.6 {ratio} Normal 1.0 - 2.5 [facility].; [place] [employer]. ALP [Catalytic activity/Vol] 92 U/L Normal 33 - 130 U/L [facility].; [place] [facility]. ALT [Catalytic activity/Vol] 27 U/L Normal 6 - 29 U/L [facility].; [place] [employer]. AST [Catalytic activity/Vol] 22 U/L Normal 10 - 35 U/L [facility].; [place] [employer]. Bilirubin [Mass/Vol] 1.7 mg/dL Abnormal 0.2 - 1.2 mg/dL [facility].; [place] [employer]. Calcium [Mass/Vol] 9.5 mg/dL Normal 8.6 - 10. 4 mg/dL [facility].; [employer] [facility]. Chloride [Moles/Vol] 103 mmol/L Normal 98 - 110 mmol/L [facility].; [place] [employer], [employer]. Cholesterol [Mass/Vol] 163 mg/dL Normal 125 - 200 mg/dL [facility].; [place] [employer], [facility]. Cholesterol in HDL [Mass/Vol] 52 mg/dL Normal [place] [employer] [facility].; [place] [employer]. Cholesterol in LDL [Mass/Vol] 91 mg/dL Normal [employer] [facility].; [employer], [employer]. Cholesterol non HDL [Mass/Vol] 111 mg/dL Normal [employer] [facility].; [employer] Cholesterol.total/ Cholesterol in HDL [Mass ratio] 3.1 {ratio} Normal [place] [employer] [facility].; [employer], [employer]. CO2 [Moles/Vol] 27 mmol/L Normal 20 - 31 mmol/L [facility].; [employer], [employer]. Creatinine [Mass/Vol] 0.96 mg/dL Normal 0.50 - 0.99 mg/dL [facility].; [facility], [facility]. GFR/1.73 sq M.predicted among blacks MDRD (S/P/Bld) [Vol rate/Area] 71 {ML/MIN/1.73M2} Normal [facility].; [facility], [facility]. GFR/1.73 sq M.predicted MDRD (S/P/Bld) [Vol rate/Area] 61 {ML/MIN/1.73M2} Normal [facility].; [facility], [facility] Globulin (S) [Mass/Vol] 2.6 g/dL Normal 1.9 - 3.7 g/dL [facility].; [facility], [facility] Glucose [Mass/Vol] 98 mg/dL Normal 65 - 99 mg/dL [facility].; [facility], [facility]. Potassium [Moles/Vol] 4.4 mmol/L Normal 3.5 - 5.3 mmol/L [facility]; [facility], [facility] Protein [Mass/Vol] 6.9 g/dL Normal 6.1 - 8.1 g/dL [facility]; [facility], [facility]. Sodium [Moles/Vol] 138 mmol/L Normal 135 - 146 mmol/L [facility]; [facility], [facility]. Triglyceride [Mass/Vol] 98 mg/dL Normal [facility]; [facility], [facility] Urea nitrogen [Mass/Vol] 21 mg/dL Normal 7 - 25 mg/dL [facility].; [facility], [facility]. Urea nitrogen/Creatinin e [Mass ratio] 22.2 mg/mg Abnormal 6 - 22 [facility]; [facility], [facility]. Laboratory - Chemistry and C hemistry - challengeon 01-02-2015 Albumin [Mass/Vol] 4.4 g/dL Normal 3.6 - 5.1 g/dL [facility]; [facility], [facility]. Albumin/Globulin [Mass ratio] 2.0 {ratio} Normal 1.0 - 2.5 [facility].; [facility], [facility]. ALP [Catalytic activity/Vol] 92 U/L Normal 33 - 130 U/L [facility], [facility].; [facility]. ALT [Catalytic activity/Vol] 23 U/L Normal 6 - 29 U/L [facility].; [facility], [facility]. AST [Catalytic activity/Vol] 24 U/L Normal 10 - 35 U/L [facility], [facility].; [facility], [facility]. Bilirubin [Mass/Vol] 1.4 mg/dL Abnormal 0.2 - 1.2 mg/dL [facility].; [facility], [facility]. Calcium [Mass/Vol] 9.6 mg/dL Normal 8.6 - 10. 4 mg/dL [facility], [facility].; [facility], [facility]. Chloride [Moles/Vol] 105 mmol/L Normal 98 - 110 mmol/L [facility].; [facility], [facility]. Cholesterol [Mass/Vol] 178 mg/dL Normal 125 - 200 mg/dL [facility], [facility].; [facility], [facility]. Cholesterol in HDL [Mass/Vol] 56 mg/dL Normal [facility].; [facility], [facility]. Cholesterol in LDL [Mass/Vol] 98 mg/dL Normal [facility].; [facility], [employer]. Cholesterol non HDL [Mass/Vol] 122 mg/dL Normal [facility].; [place] [employer] [facility], [facility]. Cholesterol.total/ Cholesterol in HDL [Mass ratio] 3.2 {ratio} Normal [facility].; [facility]. CO2 [Moles/Vol] 27 mmol/L Normal 19 - 30 mmol/L [facility].; [place] [employer] [facility], [facility]. Creatinine [Mass/Vol] 0.92 mg/dL Normal 0.50 - 0.99 mg/dL [facility], [facility].; [facility], [facility]. GFR/1.73 sq M.predicted among blacks MDRD (S/P/Bld) [Vol rate/Area] 75 {ML/MIN/1.73M2} Normal [facility], [facility].; [facility], [facility]. GFR/1.73 sq M.predicted MDRD (S/P/Bld) [Vol rate/Area] 65 {ML/MIN/1.73M2} Normal [facility].; [facility], [facility]. Globulin (S) [Mass/Vol] 2.2 g/dL Normal 1.9 - 3.7 g/dL [facility].; [facility], [facility]. Glucose [Mass/Vol] 98 mg/dL Normal 65 - 99 mg/dL [facility].; [facility], [facility] Potassium [Moles/Vol] 4.1 mmol/L Normal 3.5 - 5.3 mmol/L [facility]; [facility], [facility] Protein [Mass/Vol] 6.6 g/dL Normal 6.1 - 8.1 g/dL [facility]; [facility], [facility]. Sodium [Moles/Vol] 141 mmol/L Normal 135 - 146 mmol/L [facility]; [facility], [facility] Triglyceride [Mass/Vol] 120 mg/dL Normal [facility]; [facility], [facility]. Urea nitrogen [Mass/Vol] 23 mg/dL Normal 7 - 25 mg/dL [facility]; [facility], [facility] Urea nitrogen/Creatinin e [Mass ratio] 25.2 mg/mg Abnormal 6 - 22 [facility]; [facility], [facility] Laboratory - Chemistry and C hemistry - challengeon 12-27-2013 Albumin [Mass/Vol] 4.4 g/dL Normal 3.6 - 5.1 g/dL [facility]; [facility], [facility]. Albumin/Globulin [Mass ratio] 1.9 {ratio} Normal 1.0 - 2.5 [facility]; [facility], [facility]. ALP [Catalytic activity/Vol] 92 U/L Normal 33 - 130 U/L [facility].; [facility], [facility]. ALT [Catalytic activity/Vol] 20 U/L Normal 6 - 29 U/L [facility].; [facility], [facility]. AST [Catalytic activity/Vol] 23 U/L Normal 10 - 35 U/L [facility].; [facility], [facility]. Bilirubin [Mass/Vol] 1.3 mg/dL Abnormal 0.2 - 1.2 mg/dL [facility], [facility].; [facility], [facility]. Calcium [Mass/Vol] 9.6 mg/dL Normal 8.6 - 10. 4 mg/dL [facility], [facility].; [facility], [facility]. Chloride [Moles/Vol] 108 mmol/L Normal 98 - 110 mmol/L [facility], [facility].; [facility], [facility]. Cholesterol [Mass/Vol] 172 mg/dL Normal 125 - 200 mg/dL [facility], [facility].; [facility], [facility]. Cholesterol in HDL [Mass/Vol] 55 mg/dL Normal [facility], [facility].; [facility], [facility]. Cholesterol in LDL [Mass/Vol] 98 mg/dL Normal [facility].; [facility], [facility]. Cholesterol non HDL [Mass/Vol] 117 mg/dL Normal [facility], [facility].; [facility], [facility]. Cholesterol.total/ Cholesterol in HDL [Mass ratio] 3.1 {ratio} Normal [facility].; [facility], [facility]. CO2 [Moles/Vol] 26 mmol/L Normal 19 - 30 mmol/L [facility], [facility].; [facility], [facility]. Creatinine [Mass/Vol] 0.92 mg/dL Normal 0.50 - 0.99 mg/dL [facility], [facility].; [facility], [facility]. GFR/1.73 sq M.predicted among blacks MDRD (S/P/Bld) [Vol rate/Area] 76 {ML/MIN/1.73M2} Normal [facility], [facility].; [facility], [facility]. GFR/1.73 sq M.predicted MDRD (S/P/Bld) [Vol rate/Area] 65 {ML/MIN/1.73M2} Normal [facility], [facility].; [facility], [facility]. Globulin (S) [Mass/Vol] 2.3 g/dL Normal 1.9 - 3.7 g/dL [facility], [facility].; [facility] [employer] Glucose [Mass/Vol] 95 mg/dL Normal 65 - 99 mg/dL [facility].; [facility] Potassium [Moles/Vol] 4.2 mmol/L Normal 3.5 - 5.3 mmol/L [facility].; [facility] Protein [Mass/Vol] 6.7 g/dL Normal 6.1 - 8.1 g/dL [facility].; [facility]. Sodium [Moles/Vol] 142 mmol/L Normal 135 - 146 mmol/L [facility].; [facility] Triglyceride [Mass/Vol] 94 mg/dL Normal [facility]; [facility] Urea nitrogen [Mass/Vol] 24 mg/dL Normal 7 - 25 mg/dL [facility]; [facility] Urea nitrogen/Creatinin e [Mass ratio] 26.2 mg/mg Abnormal [facility].; [facility] Laboratory - Chemistry and C hemistry - challengeon 12-21-2012 Albumin [Mass/Vol] 4.5 g/dL Normal 3.6 - 5.1 g/dL [facility].; [facility]. Albumin/Globulin [Mass ratio] 2.1 {ratio} Normal 1.0 - 2.5 [facility]; [facility]. ALP [Catalytic activity/Vol] 93 U/L Normal 33 - 130 U/L [facility].; [facility], [facility]. ALT [Catalytic activity/Vol] 20 U/L Normal 6 - 29 U/L [facility].; [facility]. AST [Catalytic activity/Vol] 20 U/L Normal 10 - 35 U/L [facility].; [facility]. Bilirubin [Mass/Vol] 1.4 mg/dL Abnormal 0.2 - 1.2 mg/dL [facility].; [facility], [facility]. Calcium [Mass/Vol] 9.9 mg/dL Normal 8.6 - 10. 4 mg/dL [facility].; [facility], [facility]. Chloride [Moles/Vol] 104 mmol/L Normal 98 - 110 mmol/L [facility].; [facility] [employer] Cholesterol [Mass/Vol] 177 mg/dL Normal 125 - 200 mg/dL [facility], [facility].; [facility], [facility]. Cholesterol in HDL [Mass/Vol] 58 mg/dL Normal [facility].; [facility], [facility]. Cholesterol in LDL [Mass/Vol] 91 mg/dL Normal [facility], [facility].; [facility], [facility]. Cholesterol non HDL [Mass/Vol] 119 mg/dL Normal [facility], [facility].; [facility], [facility]. Cholesterol.total/ Cholesterol in HDL [Mass ratio] 3.1 {ratio} Normal [facility].; [facility], [facility]. CO2 [Moles/Vol] 28 mmol/L Normal 19 - 30 mmol/L [facility].; [facility], [facility]. Creatinine [Mass/Vol] 0.97 mg/dL Normal 0.50 - 0.99 mg/dL [facility], [facility].; [facility], [facility]. GFR/1.73 sq M.predicted among blacks MDRD (S/P/Bld) [Vol rate/Area] 72 {ML/MIN/1.73M2} Normal [facility], [facility].; [facility], [facility]. GFR/1.73 sq M.predicted MDRD (S/P/Bld) [Vol rate/Area] 62 {ML/MIN/1.73M2} Normal [facility], [facility].; [place] [employer] [facility], [facility]. Globulin (S) [Mass/Vol] 2.2 g/dL Normal 1.9 - 3.7 g/dL [facility], [facility].; [facility], [facility]. Glucose [Mass/Vol] 93 mg/dL Normal 65 - 99 mg/dL [facility].; [facility], [facility]. Potassium [Moles/Vol] 4.3 mmol/L Normal 3.5 - 5.3 mmol/L [facility], [facility].; [facility], [facility]. Protein [Mass/Vol] 6.7 g/dL Normal 6.1 - 8.1 g/dL [facility], [facility].; [facility], [facility]. Sodium [Moles/Vol] 140 mmol/L Normal 135 - 146 mmol/L [facility], [facility].; [facility], [facility]. Triglyceride [Mass/Vol] 139 mg/dL Normal [facility], [facility].; [facility], [facility]. Urea nitrogen [Mass/Vol] 19 mg/dL Normal 7 - 25 mg/dL [facility], [facility].; [facility], [facility]. Urea nitrogen/Creatinin e [Mass ratio] 20.0 mg/mg Normal 6 - 22 [facility].; [facility], [facility]. Laboratory - Chemistry and C hemistry - challengeon 12-16-2011 Albumin [Mass/Vol] 4.5 g/dL Normal 3.6 - 5.1 g/dL [facility], [facility].; [facility], [facility]. Albumin/Globulin [Mass ratio] 1.8 {ratio} Normal 1.0 - 2.1 [facility].; [place] [employer] [facility], [facility]. ALP [Catalytic activity/Vol] 104 U/L Normal 33 - 130 U/L [facility].; [facility], [facility]. ALT [Catalytic activity/Vol] 36 U/L Normal 6 - 40 U/L [facility] MEDICINE [facility].; [place] [employer] [facility], [facility]. AST [Catalytic activity/Vol] 33 U/L Normal 10 - 35 U/L [facility].; [place] [employer] [facility], [facility]. Bilirubin [Mass/Vol] 1.3 mg/dL Abnormal 0.2 - 1.2 mg/dL [facility], [facility].; [facility], [facility]. Calcium [Mass/Vol] 10.2 mg/dL Normal 8.6 - 10. 4 mg/dL [facility].; [facility], [facility]. Chloride [Moles/Vol] 103 mmol/L Normal 98 - 110 mmol/L [facility].; [facility], [facility]. Cholesterol [Mass/Vol] 178 mg/dL Normal 125 - 200 mg/dL [facility], [facility].; [facility], [facility]. Cholesterol in HDL [Mass/Vol] 50 mg/dL Normal [facility], [facility].; [facility], [facility]. Cholesterol in LDL [Mass/Vol] 96 mg/dL Normal [facility].; [facility], [facility]. Cholesterol non HDL [Mass/Vol] 128 mg/dL Normal [facility].; [facility], [facility] Cholesterol.total/ Cholesterol in HDL [Mass ratio] 3.6 {ratio} Normal [facility]; [facility], [facility] CO2 [Moles/Vol] 29 mmol/L Normal 21 - 33 mmol/L [facility].; [facility], [facility]. Creatinine [Mass/Vol] 0.93 mg/dL Normal 0.50 - 0.99 mg/dL [facility].; [facility], [facility]. GFR/1.73 sq M.predicted among blacks MDRD (S/P/Bld) [Vol rate/Area] 76 {ML/MIN/1.73M2} Normal [facility]; [facility], [facility]. GFR/1.73 sq M.predicted MDRD (S/P/Bld) [Vol rate/Area] 65 {ML/MIN/1.73M2} Normal [facility], [facility].; [facility], [facility]. Globulin (S) [Mass/Vol] 2.5 g/dL Normal 2.2 - 3.9 g/dL [facility].; [facility], [facility]. Glucose [Mass/Vol] 102 mg/dL Abnormal 65 - 99 mg/dL [facility].; [facility], [facility]. Potassium [Moles/Vol] 4.7 mmol/L Normal 3.5 - 5.3 mmol/L [facility].; [facility], [facility]. Protein [Mass/Vol] 7.0 g/dL Normal 6.2 - 8.3 g/dL [facility], [facility].; [facility], [facility]. Sodium [Moles/Vol] 141 mmol/L Normal 135 - 146 mmol/L [facility], [facility].; [facility], [facility]. Triglyceride [Mass/Vol] 162 mg/dL Abnormal [facility].; [facility], [facility]. Urea nitrogen [Mass/Vol] 16 mg/dL Normal 7 - 25 mg/dL [facility], [facility].; [facility], [facility]. Urea nitrogen/Creatinin e [Mass ratio] 16.8 mg/mg Normal 6 - 22 [facility]; [facility] Laboratory - Chemistry and C hemistry - challengeon 12-19-2010 Albumin [Mass/Vol] 4.9 g/dL Normal 3.6 - 5.1 g/dL [facility].; [place] [employer] [facility], [facility]. Albumin/Globulin [Mass ratio] 2.1 {ratio} Normal 1.0 - 2.1 [facility], [facility].; [place] [employer], [employer]. ALP [Catalytic activity/Vol] 118 U/L Normal 33 - 130 U/L [facility].; [place] [employer] [facility], [employer]. ALT [Catalytic activity/Vol] 24 U/L Normal 6 - 40 U/L [facility].; [place] [employer], [employer]. AST [Catalytic activity/Vol] 22 U/L Normal 10 - 35 U/L [facility].; [employer], [employer]. Bilirubin [Mass/Vol] 1.8 mg/dL Abnormal 0.2 - 1.2 mg/dL [facility].; [employer], [employer]. Calcium [Mass/Vol] 9.9 mg/dL Normal 8.6 - 10. 2 mg/dL [place] [facility].; [employer], [employer]. Chloride [Moles/Vol] 104 mmol/L Normal 98 - 110 mmol/L [place] [facility].; [employer], [employer]. Cholesterol [Mass/Vol] 181 mg/dL Normal 125 - 200 mg/dL [place] [employer] [facility], [facility].; [employer], [employer]. Cholesterol in HDL [Mass/Vol] 53 mg/dL Normal [place] [employer] [facility].; [employer], [employer]. Cholesterol in LDL [Mass/Vol] 96 mg/dL Normal [place] [employer] [facility].; [employer], [employer]. Cholesterol.total/ Cholesterol in HDL [Mass ratio] 3.4 {ratio} Normal [place] [facility].; [employer], [employer]. CO2 [Moles/Vol] 27 mmol/L Normal 21 - 33 mmol/L [place] [employer] [facility], [facility].; [employer] Creatinine [Mass/Vol] 1.10 mg/dL Normal 0.60 - 1.18 mg/dL [facility].; [employer], [employer]. GFR/1.73 sq M.predicted among blacks MDRD (S/P/Bld) [Vol rate/Area] 62 {ML/MIN/1.73M2} Normal [facility], [facility].; [facility], [facility]. GFR/1.73 sq M.predicted MDRD (S/P/Bld) [Vol rate/Area] 54 {ML/MIN/1.73M2} Abnormal [facility], [facility].; [facility], [facility] Globulin (S) [Mass/Vol] 2.3 g/dL Normal 2.2 - 3.9 g/dL [facility], [facility].; [facility], [facility]. Glucose [Mass/Vol] 99 mg/dL Normal 65 - 99 mg/dL [facility].; [facility], [facility]. Potassium [Moles/Vol] 4.3 mmol/L Normal 3.5 - 5.3 mmol/L [facility], [facility].; [facility], [facility] Protein [Mass/Vol] 7.2 g/dL Normal 6.2 - 8.3 g/dL [facility], [facility].; [facility], [facility]. Sodium [Moles/Vol] 140 mmol/L Normal 135 - 146 mmol/L [facility], [facility].; [facility], [facility]. Triglyceride [Mass/Vol] 162 mg/dL Abnormal [facility], [facility].; [facility], [facility]. Urea nitrogen [Mass/Vol] 15 mg/dL Normal 7 - 25 mg/dL [facility], [facility].; [facility], [facility]. Urea nitrogen/Creatinin e [Mass ratio] 13.8 mg/mg Normal 6 - 22 [facility].; [place] [employer] [facility], [facility]. Laboratory - Chemistry and C hemistry - challengeon 12-20-2009 Albumin [Mass/Vol] 4.5 g/dL Normal 3.6 - 5.1 g/dL [facility], [facility].; [facility], [facility]. Albumin/Globulin [Mass ratio] 1.9 {ratio} Normal 1.0 - 2.1 [facility], [facility].; [place] [employer] [facility], [facility]. ALP [Catalytic activity/Vol] 108 U/L Normal 33 - 130 U/L [facility].; [facility], [facility]. ALT [Catalytic activity/Vol] 25 U/L Normal 6 - 40 U/L [facility].; [facility], [facility]. AST [Catalytic activity/Vol] 23 U/L Normal 10 - 35 U/L [facility].; [facility], [facility]. Bilirubin [Mass/Vol] 1.5 mg/dL Abnormal 0.2 - 1.2 mg/dL [facility].; [facility], [facility] Calcium [Mass/Vol] 9.7 mg/dL Normal 8.6 - 10. 2 mg/dL [facility].; [facility], [facility]. Chloride [Moles/Vol] 104 mmol/L Normal 98 - 110 mmol/L [facility].; [facility], [facility]. Cholesterol [Mass/Vol] 197 mg/dL Normal 125 - 200 mg/dL [facility], [facility].; [facility], [facility] Cholesterol in HDL [Mass/Vol] 55 mg/dL Normal [facility].; [facility], [facility]. Cholesterol in LDL [Mass/Vol] 111 mg/dL Normal [facility].; [facility], [facility] Cholesterol.total/ Cholesterol in HDL [Mass ratio] 3.6 {ratio} Normal [facility].; [facility], [facility]. CO2 [Moles/Vol] 25 mmol/L Normal 21 - 33 mmol/L [facility].; [facility], [facility]. Creatinine [Mass/Vol] 0.94 mg/dL Normal 0.60 - 1.18 mg/dL [facility], [facility].; [facility], [facility]. GFR/1.73 sq M.predicted among blacks MDRD (S/P/Bld) [Vol rate/Area] mL/min/{1.73_m2} Normal [facility], [facility].; [facility], [facility]. GFR/1.73 sq M.predicted MDRD (S/P/Bld) [Vol rate/Area] mL/min/{1.73_m2} Normal [facility], [facility].; [facility], [facility]. Globulin (S) [Mass/Vol] 2.4 g/dL Normal 2.2 - 3.9 g/dL [facility].; [facility], [facility]. Glucose [Mass/Vol] 92 mg/dL Normal 65 - 99 mg/dL [facility].; [facility], [facility]. Potassium [Moles/Vol] 4.4 mmol/L Normal 3.5 - 5.3 mmol/L [facility].; [facility], [facility] Protein [Mass/Vol] 6.9 g/dL Normal 6.2 - 8.3 g/dL [facility].; [facility], [facility] Sodium [Moles/Vol] 140 mmol/L Normal 135 - 146 mmol/L [facility].; [facility], [facility] Triglyceride [Mass/Vol] 154 mg/dL Abnormal [facility]; [facility], [facility]. Urea nitrogen [Mass/Vol] 17 mg/dL Normal 7 - 25 mg/dL [facility]; [facility], [facility] Urea nitrogen/Creatinin e [Mass ratio] 17.7 mg/mg Normal 6 - 22 [facility].; [facility], [facility] Vital Signs Date Time Vital Sign Value Performing Clinician Facility 09-01-2024 10:40-0400 Body height 157.[address] Moose Barreto MD Work Phone: [facility] 09-01-2024 10:40-0400 Body mass index (BMI) [Ratio] 30.3 kg/m2 Dr. Moose Barreto MD Work Phone: [facility] 09-01-2024 10:40-0400 Body weight 75.[address] Moose Barreto MD Work Phone: [facility] 08-30-2024 09:33-0400 Body height 157.48 cm Valerie Arias LPN [facility], [facility].; [facility], [facility]. 08-30-2024 09:33-0400 Body mass index (BMI) [Ratio] 30.91 kg/m2 Valerie Arias LPN [facility].; [facility], [facility]. 08-30-2024 09:33-0400 Body surface area Derived from formula 1.78 m2 Valerie Arias LPN [facility].; [facility], [facility]. 08-30-2024 09:33-0400 Body weight 76.66 kg Valerie Hugo AJ [facility], [facility].; [facility], [facility]. 08-30-2024 09:33-0400 Diastolic blood pressure 81 mm[Hg] Valerie Arias LPN [facility], [facility].; [facility], [facility]. Comment on above: Patient Position: Sitting; Cuff Location : Left Arm; Cuff Size: Standard 08-30-2024 09:33-0400 Heart rate 79 /min Valerie Arias LPN [facility], [facility].; [facility], [facility]. Comment on above: Pattern: Regular 08-30-2024 09:33-0400 Systolic blood pressure 129 mm[Hg] Valerie Arias LPN [facility], [facility].; [facility], [facility]. Comment on above: Patient Position: Sitting; Cuff Location : Left Arm; Cuff Size: Standard 07-28-2024 13:21-0400 Body height 157.[address] Moose Barreto MD Work Phone: [facility] 07-28-2024 13:21-0400 Body mass index (BMI) [Ratio] 31.1 kg/m2 Dr. Moose Barreto MD Work Phone: [facility] 07-28-2024 13:21-0400 Body weight 77.[address] Moose Barreto MD Work Phone: [facility] 04-26-2024 09:49-0500 Body height 157.48 cm Manny Huitron LPN [facility], [facility].; [facility], [facility]. 04-26-2024 09:49-0500 Body mass index (BMI) [Ratio] 31.64 kg/m2 Manny Huitron LPN [facility], [facility].; [facility], [facility]. 04-26-2024 09:49-0500 Body surface area Derived from formula 1.8 m2 Manny Huitron LPN [facility], [facility].; [facility], [facility]. 04-26-2024 09:49-0500 Body weight 78.47 kg Manny Huitron LPN [facility], [facility].; [employer]. 04-26-2024 09:49-0500 Diastolic blood pressure 82 mm[Hg] Manny Huitron MADAI [facility], [facility].; [employer]. Comment on above: Patient Position: Sitting; Cuff Location : Left Arm; Cuff Size: Standard 04-26-2024 09:49-0500 Heart rate 73 /min Manny Huitron MADAI [facility] [employer]. Comment on above: Pattern: Regular 04-26-2024 09:49-0500 Systolic blood pressure 135 mm[Hg] Manny Huitron MADAI [employer] [facility] [employer], [employer]. Comment on above: Patient Position: Sitting; Cuff Location : Left Arm; Cuff Size: Standard 10-28-2023 08:44-0400 Body height 157.48 cm Moose Barreto MD Work Phone: [place] [employer], [employer].; [employer], [employer]. 10-28-2023 08:44-0400 Body mass index (BMI) [Ratio] 31.09 kg/m2 Moose Barreto MD Work Phone: [employer].; [employer]. 10-28-2023 08:44-0400 Body surface area Derived from formula 1.78 m2 Moose Barreto MD Work Phone: [employer] [facility], [employer].; [employer]. 10-28-2023 08:44-0400 Body weight 77.11 kg Moose Barreto MD Work Phone: [facility] [employer]. 10-28-2023 08:44-0400 Diastolic blood pressure 80 mm[Hg] Moose Barreto MD Work Phone: [employer].; [employer]. Comment on above: Patient Position: Sitting; Cuff Location : Left Arm; Cuff Size: Standard 10-28-2023 08:44-0400 Heart rate 80 /min Moose Barreto MD Work Phone: [employer].; [employer]. Comment on above: Pattern: Regular 10-28-2023 08:44-0400 Systolic blood pressure 132 mm[Hg] Moose Barreto MD Work Phone: [facility].; [facility] Comment on above: Patient Position: Sitting; Cuff Location : Left Arm; Cuff Size: Standard 08-10-2023 13:26-0400 Body height 157.48 cm Valerie Arias [facility], [facility].; [place] [employer] [facility]. 08-10-2023 13:26-0400 Body mass index (BMI) [Ratio] 31.64 kg/m2 Valerie Arias [facility].; [facility]. 08-10-2023 13:26-0400 Body surface area Derived from formula 1.8 m2 Valerieshakira Arias [employer] [facility].; [place] [employer] [facility]. 08-10-2023 13:26-0400 Body weight 78.47 kg Valerie Arias [facility].; [place] [facility]. 08-10-2023 13:26-0400 Diastolic blood pressure 82 mm[Hg] Valerie Arias [facility].; [place] [facility] [facility] Comment on above: Patient Position: Sitting; Cuff Location : Left Arm; Cuff Size: Standard 08-10-2023 13:26-0400 Heart rate 97 /min Valerieshakira Arias [employer] [facility].; [place] [employer]. Comment on above: Pattern: Regular 08-10-2023 13:26-0400 Systolic blood pressure 158 mm[Hg] Valerie Arias LPN [facility].; [place] [employer]. Comment on above: Patient Position: Sitting; Cuff Location : Left Arm; Cuff Size: Standard 04-28-2023 09:21-0500 Diastolic blood pressure 70 mm[Hg] Moose Barreto MD Work Phone: [facility].; [employer]. Comment on above: Patient Position: Sitting; Cuff Location : Left Arm; Cuff Size: Standard 04-28-2023 09:21-0500 Systolic blood pressure 112 mm[Hg] Moose Barreto MD Work Phone: [employer].; [employer] Comment on above: Patient Position: Sitting; Cuff Location : Left Arm; Cuff Size: Standard 04-28-2023 07:50-0500 Body height 157.48 cm Moose Barreto MD Work Phone: [employer].; [employer]. 04-28-2023 07:50-0500 Body mass index (BMI) [Ratio] 31.09 kg/m2 Moose Barreto MD Work Phone: [employer].; [employer]. 04-28-2023 07:50-0500 Body surface area Derived from formula 1.78 m2 Moose Barreto MD Work Phone: [employer].; [employer]. 04-28-2023 07:50-0500 Body weight 77.11 kg Moose Barreto MD Work Phone: [employer].; [employer] 04-28-2023 07:50-0500 Diastolic blood pressure 80 mm[Hg] Moose Barreto MD Work Phone: [employer].; [employer]. Comment on above: Patient Position: Sitting; Cuff Location : Left Arm; Cuff Size: Large 04-28-2023 07:50-0500 Heart rate 79 /min Moose Barreto MD Work Phone: [employer].; [employer]. Comment on above: Pattern: Regular 04-28-2023 07:50-0500 Systolic blood pressure 144 mm[Hg] Moose Barreto MD Work Phone: [employer]. Comment on above: Patient Position: Sitting; Cuff Location : Left Arm; Cuff Size: Large 02-02-2023 13:29-0500 Body height 157.48 cm Libra Tamar AJ [employer].; [employer]. 02-02-2023 13:29-0500 Body mass index (BMI) [Ratio] 30.73 kg/m2 Sydnie Boyle [facility] [employer] [facility] 02-02-2023 13:29-0500 Body surface area Derived from formula 1.78 m2 Libra Tamar [facility] [employer] 02-02-2023 13:290500 Body weight 76.2 kg Sydnie Boyle [facility] [employer] 02-02-2023 13:29-0500 Diastolic blood pressure 83 mm[Hg] Sydnie Boyle [facility] [employer] Comment on above: Patient Position: Sitting; Cuff Location : Left Arm; Cuff Size: Large 02-02-2023 13:29-0500 Heart rate 71 /min Sydnie Boyle [facility] [employer] Comment on above: Pattern: Regular 02-02-2023 13:29-0500 Systolic blood pressure 150 mm[Hg] Sydnie Boyle [facility] [employer], [employer]. Comment on above: Patient Position: Sitting; Cuff Location : Left Arm; Cuff Size: Large 10-21-2022 10:54-0400 Body height 157.48 cm Moose Barreto MD Work Phone: [facility], [employer].; [employer], [employer]. 10-21-2022 10:54-0400 Body mass index (BMI) [Ratio] 31.09 kg/m2 Moose Barreto MD Work Phone: [place] [employer] [facility], [employer].; [employer], [employer]. 10-21-2022 10:54-0400 Body surface area Derived from formula 1.78 m2 Moose Barreto MD Work Phone: [place] [employer] [facility], [employer].; [employer], [employer]. 10-21-2022 10:54-0400 Body weight 77.11 kg Moose Barreto MD Work Phone: [place] [employer] [facility] [employer]. 10-21-2022 10:54-0400 Diastolic blood pressure 76 mm[Hg] Moose Barreto MD Work Phone: [place] [employer]. Comment on above: Patient Position: Sitting; Cuff Location : Left Arm; Cuff Size: Large 10-21-2022 10:54-0400 Heart rate 73 /min Moose Barreto MD Work Phone: [employer]. Comment on above: Pattern: Regular 10-21-2022 10:54-0400 Systolic blood pressure 128 mm[Hg] Moose Barreto MD Work Phone: [employer].; [employer]. Comment on above: Patient Position: Sitting; Cuff Location : Left Arm; Cuff Size: Large 04-01-2022 09:48-0500 Body height 157.48 cm Valerie Reynolds MA [facility].; [employer] [facility]. 04-01-2022 09:48-0500 Body mass index (BMI) [Ratio] 30.54 kg/m2 Valerie Reynolds MA [place] [employer] [facility].; [employer], [employer]. 04-01-2022 09:48-0500 Body surface area Derived from formula 1.77 m2 Valerie Reynolds MA [facility].; [employer], [employer]. 04-01-2022 09:48-0500 Body weight 75.75 kg Valerie Reynolds MA [place] [employer] [facility].; [employer]. 04-01-2022 09:48-0500 Diastolic blood pressure 85 mm[Hg] Valerie Reynolds MA [employer] [facility].; [employer]. Comment on above: Patient Position: Sitting; Cuff Location : Left Arm; Cuff Size: Standard 04-01-2022 09:48-0500 Heart rate 73 /min Valerie Reynolds MA [employer] [facility] [employer]. Comment on above: Pattern: Regular 04-01-2022 09:48-0500 Systolic blood pressure 133 mm[Hg] Valerie Reynolds MA [employer].; [employer]. Comment on above: Patient Position: Sitting; Cuff Location : Left Arm; Cuff Size: Standard 09-24-2021 10:47-0400 Body height 157.48 cm Valerie Arias LPN [facility], [facility].; [place] [employer] [facility], [facility]. 09-24-2021 10:47-0400 Body mass index (BMI) [Ratio] 30.19 kg/m2 Valerie Arias LPN [facility], [facility].; [place] [employer] [facility]. 09-24-2021 10:47-0400 Body surface area Derived from formula 1.76 m2 Valerie Arias LPN [facility], [facility].; [place] [employer] [facility], [facility]. 09-24-2021 10:47-0400 Body weight 74.87 kg Valerie Arias LPN [facility], [facility].; [place] [employer] [facility], [facility]. 09-24-2021 10:47-0400 Diastolic blood pressure 65 mm[Hg] Valerie Arias LPN [facility], [facility].; [employer], [employer]. Comment on above: Patient Position: Sitting; Cuff Location : Left Arm; Cuff Size: Standard 09-24-2021 10:47-0400 Heart rate 70 /min Valerie Arias LPN [facility], [facility].; [employer], [employer]. Comment on above: Pattern: Regular 09-24-2021 10:47-0400 Systolic blood pressure 118 mm[Hg] Valerie Arias LPN [facility], [facility].; [employer]. Comment on above: Patient Position: Sitting; Cuff Location : Left Arm; Cuff Size: Standard 03-20-2021 09:01-0500 Body height 157.48 cm Moose Barreto MD Work Phone: [place] [facility], [facility].; [employer]. 03-20-2021 09:01-0500 Body mass index (BMI) [Ratio] 30.54 kg/m2 Moose Barreto MD Work Phone: [place] [facility].; [employer]. 03-20-2021 09:01-0500 Body surface area Derived from formula 1.77 m2 Moose Barreto MD Work Phone: [place] [facility].; [employer]. 03-20-2021 09:01-0500 Body weight 75.75 kg Moose Barreto MD Work Phone: [employer].; [employer]. 03-20-2021 09:01-0500 Diastolic blood pressure 80 mm[Hg] Moose Barreto MD Work Phone: [employer].; [employer]. Comment on above: Patient Position: Sitting; Cuff Location : Right Arm; Cuff Size: Standard 03-20-2021 09:01-0500 Heart rate 84 /min Moose Barreto MD Work Phone: [employer].; [employer]. Comment on above: Pattern: Regular 03-20-2021 09:01-0500 Systolic blood pressure 142 mm[Hg] Moose Barreto MD Work Phone: [employer].; [employer]. Comment on above: Patient Position: Sitting; Cuff Location : Right Arm; Cuff Size: Standard 09-18-2020 10:07-0400 Body height 157.48 cm Moose Barreto MD Work Phone: [employer].; [employer]. 09-18-2020 10:07-0400 Body mass index (BMI) [Ratio] 29.81 kg/m2 Moose Barreto MD Work Phone: [employer].; [employer]. 09-18-2020 10:07-0400 Body surface area Derived from formula 1.75 m2 Moose Barreto MD Work Phone: [employer].; [employer]. 09-18-2020 10:07-0400 Body weight 73.94 kg Moose Barreto MD Work Phone: [employer].; [employer]. 09-18-2020 10:07-0400 Diastolic blood pressure 80 mm[Hg] Moose Barreto MD Work Phone: [employer].; [employer]. Comment on above: Patient Position: Sitting; Cuff Location : Left Arm; Cuff Size: Standard 09-18-2020 10:07-0400 Heart rate 79 /min Moose Barreto MD Work Phone: [facility], [facility].; [employer]. Comment on above: Pattern: Regular 09-18-2020 10:07-0400 Systolic blood pressure 132 mm[Hg] Moose Barreto MD Work Phone: [facility], [employer].; [employer]. Comment on above: Patient Position: Sitting; Cuff Location : Left Arm; Cuff Size: Standard 03-20-2020 08:48-0500 Body height 157.48 cm Sydnie Boyle [facility], [employer].; [facility], [facility] 03-20-2020 08:48-0500 Body mass index (BMI) [Ratio] 29.45 kg/m2 LibraSarah Boyle [facility], Inc.; [place] [facility], [employer]. 03-20-2020 08:48-0500 Body surface area Derived from formula 1.74 m2 Libra Stuckey [facility], Inc.; [employer] [facility], [employer]. 03-20-2020 08:48-0500 Body weight 73.03 kg LibraSarah Boyle [facility], [facility].; [employer] 03-20-2020 08:48-0500 Diastolic blood pressure 81 mm[Hg] Sydnie Boyle [facility], [facility].; [employer] [facility]. Comment on above: Patient Position: Sitting; Cuff Location : Left Arm; Cuff Size: Large 03-20-2020 08:48-0500 Heart rate 80 /min LibraSarah Boyle ENGINE [employer] [facility], Inc.; [employer]. Comment on above: Pattern: Regular 03-20-2020 08:48-0500 Systolic blood pressure 130 mm[Hg] Sydnie Boyle ENGINE [employer] [facility], [facility].; [employer]. Comment on above: Patient Position: Sitting; Cuff Location : Left Arm; Cuff Size: Large 09-13-2019 08:08-0400 Body height 157.48 cm Sydnie Boyle LPN [facility], [facility].; [facility], [facility]. 09-13-2019 08:08-0400 Body mass index (BMI) [Ratio] 28.72 kg/m2 Sydnie Boyle [facility], [facility].; [facility], Inc[facility] 09-13-2019 08:08-0400 Body surface area Derived from formula 1.72 m2 Libra Tamar [employer]INE [employer] [facility], Inc.; [place] [facility], [facility]. 09-13-2019 08:08-0400 Body weight 71.22 kg Sydnie Boyle [facility], [facility].; [place] [facility], [facility]. 09-13-2019 08:08-0400 Diastolic blood pressure 82 mm[Hg] Sydnie Boyle [facility], [facility].; [employer], [employer]. Comment on above: Patient Position: Sitting; Cuff Location : Left Arm; Cuff Size: Large 09-13-2019 08:08-0400 Heart rate 76 /min Sydnie Boyle [facility], [facility].; [employer] [facility], [employer]. Comment on above: Pattern: Regular 09-13-2019 08:08-0400 Systolic blood pressure 130 mm[Hg] Sydnie Boyle [facility], [facility].; [employer], [employer]. Comment on above: Patient Position: Sitting; Cuff Location : Left Arm; Cuff Size: Large 08-01-2019 09:21-0400 Body height 157.48 cm Chrissie Vasquez RN [facility], [facility].; [facility], [employer]. 08-01-2019 09:21-0400 Body mass index (BMI) [Ratio] 29.45 kg/m2 Chrissie Vasquez RN [place] [facility], [facility].; [facility], [employer]. 08-01-2019 09:21-0400 Body surface area Derived from formula 1.74 m2 Chrissie Vasquez RN [place] [facility], [facility].; [employer], [employer]. 08-01-2019 09:21-0400 Body temperature 97.6 [degF] Chrissie Vasquez RN [facility], [employer].; [employer]. Comment on above: Method: Tympanic 08-01-2019 09:21-0400 Body weight 73.03 kg Chrissie Vasquez RN [facility], [facility].; [place] [facility], [facility] 08-01-2019 09:21-0400 Diastolic blood pressure 83 mm[Hg] Chrissie Vasquez RN [facility], Inc.; [employer], [employer] Comment on above: Patient Position: Sitting; Cuff Location : Left Arm; Cuff Size: Standard 08-01-2019 09:21-0400 Heart rate 81 /min Chrissie Vasquez RN [facility], Inc.; [employer], [employer] Comment on above: Pattern: Regular 08-01-2019 09:21-0400 Systolic blood pressure 150 mm[Hg] Chrissie Vasquez RN [facility], [facility].; [employer] Comment on above: Patient Position: Sitting; Cuff Location : Left Arm; Cuff Size: Standard 03-29-2019 09:56-0500 Body height 157.48 cm Sydnie Boyle LPN [facility], Inc.; [employer], [employer] 03-29-2019 09:56-0500 Body mass index (BMI) [Ratio] 29.45 kg/m2 Sydnie Boyle LPN [facility], Inc.; [employer], [employer] 03-29-2019 09:56-0500 Body surface area Derived from formula 1.74 m2 Sydnie Boyle LPN [facility], [facility].; [facility], [facility] 03-29-2019 09:56-0500 Body weight 73.03 kg Sydnie Boyle LPN [facility], [facility].; [employer], [employer] 03-29-2019 09:56-0500 Diastolic blood pressure 81 mm[Hg] ySdnie Boyle LPN [place] [facility], [facility].; [employer] Comment on above: Patient Position: Sitting; Cuff Location : Left Arm; Cuff Size: Large 03-29-2019 09:56-0500 Heart rate 80 /min Sydnie Boyle LPN [facility], Inc.; [employer], [employer]. Comment on above: Pattern: Regular 03-29-2019 09:56-0500 Systolic blood pressure 118 mm[Hg] Sydnie Boyle [employer].; [employer], [employer]. Comment on above: Patient Position: Sitting; Cuff Location : Left Arm; Cuff Size: Large 03-11-2019 08:53-0500 Body height 157.48 cm Ina Simmonsugg ENGINE [employer], [employer].; [employer], [employer] 03-11-2019 08:53-0500 Body mass index (BMI) [Ratio] 29.26 kg/m2 Ina Irisugg [employer], [employer].; [employer], [employer]. 03-11-2019 08:53-0500 Body surface area Derived from formula 1.74 m2 Ina Simmonsugg [employer], [employer].; [employer], [employer] 03-11-2019 08:53-0500 Body weight 72.58 kg Ina Simmonsugg [employer], [employer].; [employer], [employer]. 03-11-2019 08:53-0500 Diastolic blood pressure 80 mm[Hg] Ina Simmonsugg [employer], [employer].; [employer], [employer]. Comment on above: Patient Position: Sitting; Cuff Location : Left Arm; Cuff Size: Standard 03-11-2019 08:53-0500 Heart rate 72 /min Ina Simmonsugg [employer], [employer].; [employer], [employer] Comment on above: Pattern: Regular 03-11-2019 08:53-0500 Systolic blood pressure 123 mm[Hg] Ina Simmonsugg ENG[employer], [employer].; [employer]. Comment on above: Patient Position: Sitting; Cuff Location : Left Arm; Cuff Size: Standard 08-27-2018 07:13-0400 Body height 157.48 cm Chrissie Vasquez RN [employer], [employer].; [employer]. 08-27-2018 07:13-0400 Body mass index (BMI) [Ratio] 29.26 kg/m2 Chrissie Vasquez RN [employer], [employer].; [employer]. 08-27-2018 07:13-0400 Body surface area Derived from formula 1.74 m2 Chrissie Vasquez RN [place] [facility], [facility].; [employer], [employer] 08-27-2018 07:13-0400 Body weight 72.58 kg Chrissie Vasquez RN [facility], Inc.; [employer], [employer] 08-27-2018 07:13-0400 Diastolic blood pressure 78 mm[Hg] Chrissie Vasquez RN [place] [facility], [facility].; [employer], [employer] Comment on above: Patient Position: Sitting; Cuff Location : Right Arm; Cuff Size: Standard 08-27-2018 07:13-0400 Heart rate 71 /min Chrissie Vasquez RN [place] [facility], [facility].; [employer], [employer] Comment on above: Pattern: Regular 08-27-2018 07:13-0400 Systolic blood pressure 129 mm[Hg] Chrissie Vasquez RN [place] [facility], [facility].; [employer], [employer] Comment on above: Patient Position: Sitting; Cuff Location : Right Arm; Cuff Size: Standard 03-16-2018 11:17-0500 Body height 157.48 cm LibraSarah Boyle LPN [place] [facility], [facility].; [employer], [employer] 03-16-2018 11:17-0500 Body mass index (BMI) [Ratio] 30.36 kg/m2 Sydnie Boyle [employer] [facility], [facility].; [employer], [employer] 03-16-2018 11:17-0500 Body surface area Derived from formula 1.77 m2 Sydnie Boyle LPN [place] [facility], [facility].; [employer], [employer] 03-16-2018 11:17-0500 Body weight 75.3 kg Sydnie Boyle [employer], [employer].; [employer], [employer] 03-16-2018 11:17-0500 Diastolic blood pressure 81 mm[Hg] Sydnie Boyle LPN [employer], [employer].; [employer], [employer] Comment on above: Patient Position: Sitting; Cuff Location : Left Arm; Cuff Size: Large 03-16-2018 11:17-0500 Heart rate 105 /min Sydnie Boyle LPN [employer], [employer].; [employer]. Comment on above: Pattern: Regular 03-16-2018 11:17-0500 Systolic blood pressure 150 mm[Hg] Sydnie Boyle [facility], [facility].; [employer]. Comment on above: Patient Position: Sitting; Cuff Location : Left Arm; Cuff Size: Large 02-26-2018 08:35-0500 Body height 157.48 cm Michelle Zendejaslabach [facility], Inc.; [employer]. 02-26-2018 08:35-0500 Body mass index (BMI) [Ratio] 30.36 kg/m2 Michelle Shannon [facility], Inc.; [employer]. 02-26-2018 08:35-0500 Body surface area Derived from formula 1.77 m2 Michelle Shannon Lyndsey [facility] Inc.; [employer]. 02-26-2018 08:35-0500 Body weight 75.3 kg Michelle Shannon Lyndsey [facility], [employer].; [employer]. 02-26-2018 08:35-0500 Diastolic blood pressure 82 mm[Hg] Michelle Shannon Lyndsey [facility].; [employer]. Comment on above: Patient Position: Sitting; Cuff Location : Left Arm; Cuff Size: Standard 02-26-2018 08:35-0500 Heart rate 80 /min Michelle Shannon Lyndsey [facility], Inc.; [employer]. Comment on above: Pattern: Regular 02-26-2018 08:35-0500 Systolic blood pressure 123 mm[Hg] Michelle Solorio [facility].; [employer]. Comment on above: Patient Position: Sitting; Cuff Location : Left Arm; Cuff Size: Standard 08-25-2017 07:54-0400 Body height 157.48 cm Sydnie Boyle [facility].; [employer]. 08-25-2017 07:54-0400 Body mass index (BMI) [Ratio] 30.36 kg/m2 Sydnie Boyel [facility].; [employer] 08-25-2017 07:54-0400 Body surface area Derived from formula 1.77 m2 Sydnie Boyle LPN [facility], Inc.; [employer] [facility], [facility] 08-25-2017 07:54-0400 Body weight 75.3 kg Sydnie Boyle LPN [facility], Inc.; [employer], [employer] 08-25-2017 07:54-0400 Diastolic blood pressure 79 mm[Hg] Sydnie Boyle [facility], Inc.; [employer], [employer] Comment on above: Patient Position: Sitting; Cuff Location : Left Arm; Cuff Size: Large 08-25-2017 07:54-0400 Heart rate 91 /min Sydnie Boyle ENGINE [employer] [facility], Inc.; [employer], [employer] Comment on above: Pattern: Regular 08-25-2017 07:54-0400 Systolic blood pressure 115 mm[Hg] Sydnie Boyle ENGINE BOSS [facility], Inc.; [employer], [employer] Comment on above: Patient Position: Sitting; Cuff Location : Left Arm; Cuff Size: Large 05-05-2017 09:26-0500 Body height 157.48 cm Sydnie Boyle ENGINE [employer] [facility], Inc.; [employer], [employer] 05-05-2017 09:26-0500 Body mass index (BMI) [Ratio] 30.54 kg/m2 Sydnie Boyle ENGINE [employer] [facility], Inc.; [facility], [facility] 05-05-2017 09:26-0500 Body surface area Derived from formula 1.77 m2 Sydnie Boyle ENGINE [employer] [facility], Inc.; [employer], [employer] 05-05-2017 09:26-0500 Body weight 75.75 kg Sydnie Boyle [facility], [facility].; [employer], [employer] 05-05-2017 09:26-0500 Diastolic blood pressure 83 mm[Hg] Sydnie Boyle LPN [facility], Inc.; [employer], [employer] Comment on above: Patient Position: Sitting; Cuff Location : Left Arm; Cuff Size: Large 05-05-2017 09:26-0500 Heart rate 84 /min Sydnie Boyle LPN [facility], Inc.; [employer], [employer]. Comment on above: Pattern: Regular 05-05-2017 09:26-0500 Systolic blood pressure 124 mm[Hg] Sydnie Boyle LPN [facility], Inc.; [employer], [employer] Comment on above: Patient Position: Sitting; Cuff Location : Left Arm; Cuff Size: Large 02-18-2017 11:03-0500 Body height 157.48 cm Sydnie Boyle [facility], Inc.; [employer], [employer] 02-18-2017 11:03-0500 Body mass index (BMI) [Ratio] 29.81 kg/m2 Sydnie Boyle [facility], [facility].; [employer], [employer] 02-18-2017 11:03-0500 Body surface area Derived from formula 1.75 m2 Sydnie Boyle [facility], [facility].; [employer], [employer] 02-18-2017 11:03-0500 Body weight 73.94 kg Sydnie Boyle [employer] [place] [facility], [facility].; [employer], [employer] 02-18-2017 11:03-0500 Diastolic blood pressure 79 mm[Hg] Sydnie Boyle LPN [facility], [facility].; [employer], [employer] Comment on above: Patient Position: Sitting; Cuff Location : Left Arm; Cuff Size: Large 02-18-2017 11:03-0500 Heart rate 82 /min Sydnie Boyle [employer] [place] [facility], [facility].; [employer], [employer] Comment on above: Pattern: Regular 02-18-2017 11:03-0500 Systolic blood pressure 121 mm[Hg] Sydnie Boyle [facility], [facility].; [employer], [employer]. Comment on above: Patient Position: Sitting; Cuff Location : Left Arm; Cuff Size: Large 07-15-2016 08:05-0400 Body height 157.48 cm Sydnie Boyle [facility], [facility].; [employer], [employer] 07-15-2016 08:05-0400 Body mass index (BMI) [Ratio] 30.73 kg/m2 Sydnie Boyle LPN [facility], Inc.; [employer], [employer] 07-15-2016 08:05-0400 Body surface area Derived from formula 1.78 m2 Sydnie Boyle LPN [facility], Inc.; [employer], [employer] 07-15-2016 08:05-0400 Body weight 76.2 kg Sydnie Boyle LPN [facility], [facility].; [employer], [employer] 07-15-2016 08:05-0400 Diastolic blood pressure 84 mm[Hg] Sydnie Boyle [employer] [place] [facility], [facility].; [employer], [employer] Comment on above: Patient Position: Sitting; Cuff Location : Left Arm; Cuff Size: Large 07-15-2016 08:05-0400 Heart rate 73 /min Sydnie Boyle LPN [facility], [facility].; [employer], [employer] Comment on above: Pattern: Regular 07-15-2016 08:05-0400 Systolic blood pressure 133 mm[Hg] Sydnie Boyle LPN [facility], [facility].; [employer], [employer] Comment on above: Patient Position: Sitting; Cuff Location : Left Arm; Cuff Size: Large 01-15-2016 08:35-0500 Body height 157.48 cm Sydnie Boyle ENGINE [employer]OSS [facility], Inc.; [employer], [employer] 01-15-2016 08:35-0500 Body mass index (BMI) [Ratio] 30.73 kg/m2 Sydnie Boyle ENGINE [employer]OSS [facility], [facility].; [employer], [employer] 01-15-2016 08:35-0500 Body surface area Derived from formula 1.78 m2 Sydnie Boyle ENG[employer] [place] [facility], [facility].; [employer], [employer] 01-15-2016 08:35-0500 Body weight 76.2 kg Sydnie Boyle ENGINE [employer]OSS [facility], [facility].; [employer], [employer] 01-15-2016 08:35-0500 Diastolic blood pressure 85 mm[Hg] Sydnie Boyle ENGINE [employer]OSS [place] [facility], [facility].; [employer], [employer] Comment on above: Patient Position: Sitting; Cuff Location : Left Arm; Cuff Size: Large 01-15-2016 08:35-0500 Heart rate 71 /min Sydnie Boyle [facility], [employer].; [employer]. Comment on above: Pattern: Regular 01-15-2016 08:35-0500 Systolic blood pressure 137 mm[Hg] Sydnie Boyle ENG[employer]OSS [place] [facility].; [employer]. Comment on above: Patient Position: Sitting; Cuff Location : Left Arm; Cuff Size: Large 12-22-2015 09:49-0400 Body height 157.48 cm Michelle Shannon [facility].; [employer]. 12-22-2015 09:49-0400 Body mass index (BMI) [Ratio] 31.09 kg/m2 Michelle Shannon Lyndsey [facility] Inc.; [employer] 12-22-2015 09:49-0400 Body surface area Derived from formula 1.78 m2 Michelle Shannon Lyndsey [facility] [employer].; [employer]. 12-22-2015 09:49-0400 Body temperature 97.5 [degF] Michelle M Lyndsey [facility].; [employer]. Comment on above: Method: Tympanic 12-22-2015 09:49-0400 Body weight 77.11 kg Michelle Zendejaslabach [facility] [employer]. 12-22-2015 09:49-0400 Diastolic blood pressure 85 mm[Hg] Michelle Shannon Lyndsey [facility].; [employer]. Comment on above: Patient Position: Sitting; Cuff Location : Left Arm; Cuff Size: Standard 12-22-2015 09:49-0400 Heart rate 76 /min Michelle M Lyndsey [facility].; [employer]. Comment on above: Pattern: Regular 12-22-2015 09:49-0400 Inhaled oxygen concentration 20 % Michelleyanick Solorio [facility].; [employer]. Comment on above: Room air 12-22-2015 09:49-0400 Inhaled oxygen concentration 21 % Michelle Solorio [facility].; [employer]. Comment on above: Room air 12-22-2015 09:49-0400 SaO2% (BldA) [Mass fraction] 97 % Michelle Shannon Lyndsey [facility].; [employer]. 12-22-2015 09:49-0400 Systolic blood pressure 138 mm[Hg] Michelle Solorio [facility].; [employer]. Comment on above: Patient Position: Sitting; Cuff Location : Left Arm; Cuff Size: Standard 07-10-2015 13:52-0400 Body height 157.48 cm Glenna Bill ENGINE [employer]OSS Work Phone: [employer].; [employer]. 07-10-2015 13:52-0400 Body mass index (BMI) [Ratio] 30.18 kg/m2 [employer]OSS Work Phone: [employer].; [employer]. 07-10-2015 13:52-0400 Body surface area Derived from formula 1.76 m2 [employer] Work Phone: [employer].; [employer]. 07-10-2015 13:52-0400 Body weight 74.84 kg [employer]INE [employer]OSS Work Phone: [employer].; [employer]. 07-10-2015 13:52-0400 Diastolic blood pressure 82 mm[Hg] Glenna Bill ENGINE BOSS Work Phone: [employer].; [employer]. Comment on above: Patient Position: Sitting; Cuff Location : Left Arm; Cuff Size: Large 07-10-2015 13:52-0400 Heart rate 77 /min Glenna Bill ENGINE [employer] Work Phone: [employer].; [employer]. Comment on above: Pattern: Regular 07-10-2015 13:52-0400 Systolic blood pressure 118 mm[Hg] Glenna Bill ENGINE BOSS Work Phone: [place] [employer].; [employer]. Comment on above: Patient Position: Sitting; Cuff Location : Left Arm; Cuff Size: Large 05-14-2015 11:32-0400 Body temperature 98.3 [degF] Chrissie Vasquez [facility].; [employer]. Comment on above: Method: Tympanic 05-14-2015 11:32-0400 Body weight 74.84 kg Chrissie Vasquez RN [place] [employer].; [employer]. 05-14-2015 11:32-0400 Diastolic blood pressure 85 mm[Hg] Chrissie Vasquez RN [place] [employer].; [employer]. Comment on above: Patient Position: Sitting; Cuff Location : Right Arm; Cuff Size: Standard 05-14-2015 11:32-0400 Heart rate 69 /min Chrissie Vasquez RN [place] [employer].; [employer]. Comment on above: Pattern: Regular 05-14-2015 11:32-0400 Systolic blood pressure 136 mm[Hg] Chrissie Vasquez RN [place] [employer].; [employer]. Comment on above: Patient Position: Sitting; Cuff Location : Right Arm; Cuff Size: Standard 01-09-2015 08:07-0500 Body [facility] Work Phone: [employer].; [employer]. 01-09-2015 08:07-0500 Body mass index (BMI) [Ratio] 29.59 kg/m2 [facility] Work Phone: [employer].; [employer]. 01-09-2015 08:07-0500 Body surface area Derived from formula 1.77 m2 Glenna Bill ENGINE [employer]OSS Work Phone: [employer].; [employer]. 01-09-2015 08:07-0500 Body weight 74.56 [facility]OSS Work Phone: [place] [employer].; [employer]. 01-09-2015 08:07-0500 Diastolic blood pressure 79 mm[Hg] Glenna Khan LPN Work Phone: [place] [employer].; [employer]. Comment on above: Patient Position: Sitting; Cuff Location : Left Arm; Cuff Size: Standard 01-09-2015 08:07-0500 Heart rate 71 /min Glenna Khan LPN Work Phone: [place] [employer].; [employer]. Comment on above: Pattern: Regular 01-09-2015 08:07-0500 Systolic blood pressure 122 mm[Hg] Glenna Khan LPN Work Phone: [place] [employer].; [employer]. Comment on above: Patient Position: Sitting; Cuff Location : Left Arm; Cuff Size: Standard 07-04-2014 10:12-0400 Body height 158.75 cm Chrissie Vasquez RN [place] [facility].; [employer]. 07-04-2014 10:12-0400 Body mass index (BMI) [Ratio] 29.05 kg/m2 Chrissie Vasquez RN [place] [facility].; [employer]. 07-04-2014 10:12-0400 Body surface area Derived from formula 1.76 m2 Chrissie Vasquez RN [place] [facility].; [employer]. 07-04-2014 10:12-0400 Body weight 73.2 kg Chrissie Vasquez RN [employer].; [employer]. 07-04-2014 10:12-0400 Diastolic blood pressure 80 mm[Hg] Chrissie Vasquez RN [employer].; [employer]. Comment on above: Patient Position: Sitting; Cuff Location : Left Arm; Cuff Size: Standard 07-04-2014 10:12-0400 Heart rate 67 /min Chrissie Vasquez RN [place] [employer].; [employer]. Comment on above: Pattern: Regular 07-04-2014 10:12-0400 Systolic blood pressure 134 mm[Hg] Chrissie Vasquez RN [employer].; [employer]. Comment on above: Patient Position: Sitting; Cuff Location : Left Arm; Cuff Size: Standard 01-03-2014 09:24-0500 Body height 158.75 cm Tami Gil RN Work Phone: [employer]. 01-03-2014 09:24-0500 Body mass index (BMI) [Ratio] 28.8 kg/m2 Tami Gil RN Work Phone: [employer]. 01-03-2014 09:24-0500 Body surface area Derived from formula 1.75 m2 Tami Gil RN Work Phone: [employer] [employer]. 01-03-2014 09:24-0500 Body weight 72.58 kg Tami Gil RN Work Phone: [employer] [employer]. 01-03-2014 09:24-0500 Diastolic blood pressure 71 mm[Hg] Tami Gil RN Work Phone: [employer] [employer]. Comment on above: Patient Position: Sitting; Cuff Location : Left Arm; Cuff Size: Large 01-03-2014 09:24-0500 Heart rate 70 /min Tami Gil RN Work Phone: [employer]. Comment on above: Pattern: Regular 01-03-2014 09:24-0500 Systolic blood pressure 113 mm[Hg] Tami Gil RN Work Phone: [employer]. Comment on above: Patient Position: Sitting; Cuff Location : Left Arm; Cuff Size: Large 06-28-2013 08:59-0400 Body height 158.75 cm Tami Gil RN Work Phone: [employer]. 06-28-2013 08:59-0400 Body mass index (BMI) [Ratio] 28.44 kg/m2 Tami Gil RN Work Phone: [employer] [employer]. 06-28-2013 08:59-0400 Body surface area Derived from formula 1.74 m2 Tami Gil RN Work Phone: [employer] [employer]. 06-28-2013 08:59-0400 Body weight 71.67 kg Tami Gil RN Work Phone: [employer]. 06-28-2013 08:59-0400 Diastolic blood pressure 67 mm[Hg] Tami Gil RN Work Phone: [employer] [employer]. Comment on above: Patient Position: Sitting; Cuff Location : Left Arm; Cuff Size: Large 06-28-2013 08:59-0400 Heart rate 70 /min Tami Gil RN Work Phone: [employer] [employer]. Comment on above: Pattern: Regular 06-28-2013 08:59-0400 Systolic blood pressure 108 mm[Hg] Tami Gil RN Work Phone: [employer] [employer]. Comment on above: Patient Position: Sitting; Cuff Location : Left Arm; Cuff Size: Large 12-28-2012 08:46-0400 Body height 158.75 cm Tami Gil RN Work Phone: [employer] [employer]. 12-28-2012 08:46-0400 Body mass index (BMI) [Ratio] 29.7 kg/m2 Tami Gil RN Work Phone: [employer] [employer]. 12-28-2012 08:46-0400 Body surface area Derived from formula 1.77 m2 Tami Gil RN Work Phone: [employer] [employer]. 12-28-2012 08:46-0400 Body weight 74.84 kg Tami Gil RN Work Phone: [employer] [employer]. 12-28-2012 08:46-0400 Diastolic blood pressure 83 mm[Hg] Tami Gil RN Work Phone: [employer]. Comment on above: Patient Position: Sitting; Cuff Location : Right Arm; Cuff Size: Large 12-28-2012 08:46-0400 Heart rate 75 /min Tami Gil RN Work Phone: [employer]. Comment on above: Pattern: Regular 12-28-2012 08:46-0400 Systolic blood pressure 126 mm[Hg] Tami Gil RN Work Phone: [employer]. Comment on above: Patient Position: Sitting; Cuff Location : Right Arm; Cuff Size: Large 09-16-2012 18:25-0400 Body height 158.75 cm [employer] Work Phone: [employer] [employer]. 09-16-2012 18:25-0400 Body mass index (BMI) [Ratio] 28.62 kg/m2 [employer] Work Phone: [employer] [employer]. 09-16-2012 18:25-0400 Body surface area Derived from formula 1.74 m2 [employer] Work Phone: [employer] [employer]. 09-16-2012 18:25-0400 Body weight 72.12 kg [employer] Work Phone: [employer] 09-16-2012 18:25-0400 Diastolic blood pressure 72 mm[Hg] [employer] Work Phone: [employer] [employer]. Comment on above: Patient Position: Sitting; Cuff Location : Left Arm; Cuff Size: Standard 09-16-2012 18:25-0400 Heart rate 69 /min Glenna Khan [employer] Work Phone: [employer] [employer]. Comment on above: Pattern: Regular 09-16-2012 18:25-0400 Systolic blood pressure 113 mm[Hg] Glenna Khan [employer] Work Phone: [employer] [employer]. Comment on above: Patient Position: Sitting; Cuff Location : Left Arm; Cuff Size: Standard 06-29-2012 11:04-0400 Body height 158.75 cm Michelle Benjamin MD Work Phone: [employer] [employer]. 06-29-2012 11:04-0400 Body mass index (BMI) [Ratio] 29.7 kg/m2 Michelle Benjamin MD Work Phone: [employer] [employer]. 06-29-2012 11:04-0400 Body surface area Derived from formula 1.77 m2 Michelle Benjamin MD Work Phone: [employer] [employer]. 06-29-2012 11:04-0400 Body weight 74.84 kg Michelle Benjamin MD Work Phone: [employer] [employer]. 06-29-2012 11:04-0400 Diastolic blood pressure 84 mm[Hg] Michelle Benjamin MD Work Phone: [employer] [employer]. Comment on above: Patient Position: Sitting; Cuff Location : Right Arm; Cuff Size: Standard 06-29-2012 11:04-0400 Heart rate 69 /min Michelle Benjamin MD Work Phone: [employer] [employer]. Comment on above: Pattern: Regular 06-29-2012 11:04-0400 Systolic blood pressure 134 mm[Hg] Michelle Benjamin MD Work Phone: [employer]; [employer]. Comment on above: Patient Position: Sitting; Cuff Location : Right Arm; Cuff Size: Standard 12-23-2011 08:58-0400 Body height 158.75 cm Glenna Bill [employer] Work Phone: [facility] [employer]. 12-23-2011 08:58-0400 Body mass index (BMI) [Ratio] 30.96 kg/m2 Glenna Bill [employer] Work Phone: [employer] [employer] 12-23-2011 08:58-0400 Body surface area Derived from formula 1.8 m2 Glenna Bill [employer] Work Phone: [employer]; [employer]. 12-23-2011 08:58-0400 Body weight 78.02 kg Glenna Bill [employer] Work Phone: [employer] [employer] 12-23-2011 08:58-0400 Diastolic blood pressure 77 mm[Hg] Glenna Bill [employer] Work Phone: [employer]; [employer]. Comment on above: Patient Position: Sitting; Cuff Location : Left Arm; Cuff Size: Standard 12-23-2011 08:58-0400 Heart rate 65 /min Glenna Bill [employer] Work Phone: [employer]; [employer]. Comment on above: Pattern: Regular 12-23-2011 08:58-0400 Systolic blood pressure 130 mm[Hg] Glenna Bill [employer] Work Phone: [employer]; [employer]. Comment on above: Patient Position: Sitting; Cuff Location : Left Arm; Cuff Size: Standard 06-24-2011 10:05-0400 Body height 158.75 cm Tami Gil RN Work Phone: [employer]; [employer]. 06-24-2011 10:05-0400 Body mass index (BMI) [Ratio] 31.32 kg/m2 Tami Gil RN Work Phone: [employer] 06-24-2011 10:05-0400 Body surface area Derived from formula 1.81 m2 Tami Gil RN Work Phone: [employer] [employer] 06-24-2011 10:05-0400 Body weight 78.93 kg Tami Gil RN Work Phone: [place] [employer]. 06-24-2011 10:05-0400 Diastolic blood pressure 77 mm[Hg] Tami Gil RN Work Phone: [employer] [employer] Comment on above: Patient Position: Sitting; Cuff Location : Left Arm; Cuff Size: Standard 06-24-2011 10:05-0400 Heart rate 67 /min Tami Gil RN Work Phone: [employer]. Comment on above: Pattern: Regular 06-24-2011 10:05-0400 Systolic blood pressure 122 mm[Hg] Tami Gil RN Work Phone: [employer]. Comment on above: Patient Position: Sitting; Cuff Location : Left Arm; Cuff Size: Standard 12-24-2010 08:04-0400 Body height 158.75 cm Tami Gil RN Work Phone: [employer] [employer]. 12-24-2010 08:04-0400 Body mass index (BMI) [Ratio] 30.24 kg/m2 Tami Gil RN Work Phone: [employer] [employer] 12-24-2010 08:04-0400 Body surface area Derived from formula 1.79 m2 Tami Gil RN Work Phone: [employer] [employer] 12-24-2010 08:04-0400 Body weight 76.2 kg Tami Gil RN Work Phone: [place] [facility] [employer] 12-24-2010 08:04-0400 Diastolic blood pressure 87 mm[Hg] Tami Gil RN Work Phone: [place] [employer]. Comment on above: Patient Position: Sitting; Cuff Location : Left Arm; Cuff Size: Standard 12-24-2010 08:04-0400 Heart rate 74 /min Tami Gil RN Work Phone: [place] [employer]. Comment on above: Pattern: Regular 12-24-2010 08:04-0400 Systolic blood pressure 131 mm[Hg] Tami Gil RN Work Phone: [place] [employer] [employer]. Comment on above: Patient Position: Sitting; Cuff Location : Left Arm; Cuff Size: Standard 12-17-2010 14:48-0400 Body height 158.75 cm Tami Gil RN Work Phone: [place] [employer] [employer]. 12-17-2010 14:48-0400 Body mass index (BMI) [Ratio] 30.42 kg/m2 Tami Gil RN Work Phone: [employer] [employer] 12-17-2010 14:48-0400 Body surface area Derived from formula 1.79 m2 Tami Gil RN Work Phone: [employer] [employer] 12-17-2010 14:48-0400 Body weight 76.66 kg Tami Gil RN Work Phone: [employer] [employer] 12-17-2010 14:48-0400 Diastolic blood pressure 86 mm[Hg] Tami Gil RN Work Phone: [employer] [employer]. Comment on above: Patient Position: Sitting; Cuff Location : Left Arm; Cuff Size: Standard 12-17-2010 14:48-0400 Heart rate 64 /min Tami Gil RN Work Phone: [employer] [employer]. Comment on above: Pattern: Regular 12-17-2010 14:48-0400 Systolic blood pressure 150 mm[Hg] Tami Gil RN Work Phone: [employer] [employer]. Comment on above: Patient Position: Sitting; Cuff Location : Left Arm; Cuff Size: Standard 06-25-2010 10:55-0400 Body height 158.75 cm Tami Gil RN Work Phone: [employer] [employer]. 06-25-2010 10:55-0400 Body mass index (BMI) [Ratio] 29.34 kg/m2 Tami Gil RN Work Phone: [employer] [employer]. 06-25-2010 10:55-0400 Body surface area Derived from formula 1.76 m2 Tami Gil RN Work Phone: [employer] [employer]. 06-25-2010 10:55-0400 Body weight 73.94 kg Tami Gil RN Work Phone: [employer] [employer]. 06-25-2010 10:55-0400 Diastolic blood pressure 91 mm[Hg] Tami Gil RN Work Phone: [employer] [employer]. Comment on above: Patient Position: Sitting; Cuff Location : Left Arm; Cuff Size: Standard 06-25-2010 10:55-0400 Heart rate 62 /min Tami Gil RN Work Phone: [employer]. Comment on above: Pattern: Regular 06-25-2010 10:55-0400 Systolic blood pressure 159 mm[Hg] Tami Gil RN Work Phone: [employer]. Comment on above: Patient Position: Sitting; Cuff Location : Left Arm; Cuff Size: Standard 12-27-2009 12:02-0400 Body height 158.75 cm Michelle Benjamin MD Work Phone: [employer]; [employer]. 12-27-2009 12:02-0400 Body mass index (BMI) [Ratio] 28.8 kg/m2 Michelle Benjamin MD Work Phone: [employer] [employer]. 12-27-2009 12:02-0400 Body surface area Derived from formula 1.75 m2 Michelle Benjamin MD Work Phone: [employer] [employer]. 12-27-2009 12:02-0400 Body weight 72.58 kg Michelle Benjamin MD Work Phone: [employer] [employer]. 12-27-2009 12:02-0400 Diastolic blood pressure 86 mm[Hg] Michelle Benjamin MD Work Phone: [employer]; [employer]. Comment on above: Patient Position: Sitting; Cuff Location : Left Arm; Cuff Size: Standard 12-27-2009 12:02-0400 Heart rate 71 /min Michelle Benjamin MD Work Phone: [employer]; [employer] Comment on above: Pattern: Regular 12-27-2009 12:02-0400 Systolic blood pressure 143 mm[Hg] Michelle Benjamin MD Work Phone: [employer]; [employer] Comment on above: Patient Position: Sitting; Cuff Location : Left Arm; Cuff Size: Standard Encounters Encounter Date Encounter Type Care Provider Facility Start: 09-08-2024 End: 09-08-2024 Siri Barreto MD Work Phone: [employer] Start: 09-07-2024 Encounter for other preprocedural examination Guerrero Valdivia [facility] Start: 09-01-2024 End: 09-01-[address] Guerrero Valdivia MD -[facility] Work Phone: Start: 09-01-2024 End: 09-01-[address] Moose Barreto MD Work Phone: -[facility] Start: 08-30-2024 End: 08-30-2024 Office outpatient visit 15 minutes [facility] Start: 08-30-2024 End: 08-30-2024 Physical examination Moose [facility] Start: 07-28-2024 End: 07-28-[address] Chente Whitmore MD -[facility] Start: 07-28-2024 End: 07-28-[address] Moose Barreto MD Work Phone: [facility] Work Phone: Start: 07-22-2024 End: 07-22-[address] Moose Barreto MD Work Phone: [facility] Work Phone: Start: 07-22-2024 End: 07-22-[address] Guerrero Valdivia MD -[facility] Work Phone: Start: 07-22-2024 End: 07-22-2024 ambulatory Guerrero Valdivia Facility:[facility] Start: 07-08-2024 End: 07-08-[address] Guerrero Valdivia MD -[facility] Work Phone: Start: 07-08-2024 End: 07-08-2024 ambulatory Moose Barreto Facility:[facility] Start: 04-26-2024 End: 04-26-2024 Office outpatient visit 25 minutes Moose Barreto MD Work [facility] Start: 12-01-2023 End: 12-11-2023 ambulatory GUERRERO VALDIVIA [facility] Start: 10-28-2023 End: 10-28-2023 Periodic preventive med est patient 65yrs& older Moose Barreto MD Work Phone: [employer] Start: 10-25-2023 Encounter for preprocedural laboratory examination Guerrero Valdivia [facility] Start: 10-21-2023 End: 10-21-2023 Orders Moose Barreto MD Work Phone: [employer]. Start: 10-02-2023 End: 10-02-2023 ambulatory Moose Barreto Facility:[facility] Start: 09-30-2023 End: 09-30-2023 ambulatory Guerrero Valdivia Facility:[facility] Start: 09-24-2023 End: 11-30-2023 ambulatory [facility] Start: 09-16-2023 End: 09-16-2023 ambulatory Moose Barreto Facility:[facility] Start: 08-25-2023 End: 08-25-2023 Orders Moose Barreto MD Work Phone: [employer]. Start: 08-10-2023 End: 08-10-2023 Office outpatient visit 10 minutes Moose Barreto MD Work Phone: [employer]. Start: 08-10-2023 Review Moose Barreto MD Work Phone: [employer]. Start: 07-21-2023 End: 07-21-2023 ambulatory MOOSE BARRETO [facility] Start: 06-18-2023 End: 06-18-2023 Orders Moose Barreto MD Work Phone: [employer]. Start: 04-28-2023 End: 04-28-2023 Office outpatient visit 15 minutes Moose Barreto MD Work Phone: [employer]. Start: 03-24-2023 End: 03-24-2023 Orders Moose Barreto MD Work Phone: [employer]. Start: 02-02-2023 End: 02-02-2023 Office outpatient visit 15 minutes Moose Barreto MD Work Phone: [employer]. Start: 10-21-2022 End: 10-21-2022 Periodic preventive med est patient 65yrs& older Moose Barreto MD Work Phone: [employer]. Start: 10-14-2022 End: 10-14-2022 Orders Moose Barreto MD Work Phone: [employer]. Start: 09-11-2022 End: 09-11-2022 Orders Moose Barreto MD Work Phone: [employer]. Start: 04-09-2022 End: 04-09-2022 Orders Moose Barreto MD Work Phone: [employer]. Start: 04-01-2022 End: 04-01-2022 Office outpatient visit 15 minutes Moose Barreto MD Work Phone: [employer] Start: 09-24-2021 End: 09-24-2021 Periodic preventive med est patient 65yrs& older Moose Barreto MD Work Phone: [employer]. Start: 09-17-2021 End: 09-17-2021 Orders Moose Barreto MD Work Phone: [employer]. Start: 08-07-2021 End: 08-07-2021 Orders Moose Barreto MD Work Phone: [employer]. Start: 05-14-2021 End: 05-14-2021 Orders Moose Barreto MD Work Phone: [employer]. Start: 03-20-2021 End: 03-20-2021 Office outpatient visit 25 minutes Moose Barreto MD Work Phone: [employer]. Start: 02-25-2021 End: 02-25-2021 Telephone follow-up Moose Barreto MD Work Phone: [employer]. Start: 09-18-2020 End: 09-18-2020 Periodic preventive med est patient 65yrs& older Moose Barreto MD Work Phone: [employer]. Start: 08-02-2020 End: 08-03-2020 Orders Moose Barreto MD Work Phone: [employer]. Start: 07-24-2020 End: 07-24-2020 Orders Moose Barreto MD Work Phone: [employer]. Start: 03-20-2020 End: 03-20-2020 Office outpatient visit 25 minutes Moose Barreto MD Work Phone: [employer] Start: 01-24-2020 End: 01-24-2020 Telephone follow-up Moose Barreto MD Work Phone: [employer]. Start: 09-13-2019 End: 09-13-2019 Office outpatient visit 25 minutes Moose Barreto MD Work Phone: [employer]. Start: 08-01-2019 End: 08-01-2019 Office outpatient visit 15 minutes Moose Barreto MD Work Phone: [employer]. Start: 07-05-2019 End: 07-05-2019 Orders Moose Barreto MD Work Phone: [employer]. Start: 03-29-2019 End: 03-29-2019 Periodic preventive med est patient 65yrs& older Moose Barreto MD Work Phone: [employer]. Start: 03-22-2019 End: 03-22-2019 Orders Moose Barreto MD Work Phone: [employer]. Start: 03-14-2019 End: 03-14-2019 Orders Moose Barreto MD Work Phone: [employer]. Start: 03-11-2019 End: 03-11-2019 Office outpatient visit 15 minutes Moose Barreto MD Work Phone: [employer] Start: 03-07-2019 End: 03-07-2019 Orders Moose Barreto MD Work Phone: [employer]. Start: 11-03-2018 End: 11-03-2018 Orders Moose Barreto MD Work Phone: [employer]. Start: 08-27-2018 End: 08-27-2018 Office outpatient visit 15 minutes Moose Barreto MD Work Phone: [employer] Start: 03-16-2018 End: 03-16-2018 Office outpatient visit 15 minutes Moose Barreto MD Work Phone: [employer]. Start: 02-26-2018 End: 02-26-2018 Office outpatient visit 15 minutes Moose Barreto MD Work Phone: [employer]. Start: 02-19-2018 End: 02-19-2018 Orders Moose Barreto MD Work Phone: [employer]. Start: 09-28-2017 End: 09-28-2017 Orders Moose Barreto MD Work Phone: [employer]. Start: 08-25-2017 End: 08-25-2017 Office outpatient visit 15 minutes Moose Barreto MD Work Phone: [employer]. Start: 05-05-2017 End: 05-05-2017 Office outpatient visit 15 minutes Moose Barreto MD Work Phone: [employer]. Start: 02-18-2017 End: 02-18-2017 Periodic preventive med est patient 65yrs& older Moose Barreto MD Work Phone: [employer]. Start: 01-09-2017 End: 01-09-2017 Orders Moose Barreto MD Work Phone: [employer]. Start: 11-18-2016 End: 11-18-2016 Orders Moose Barreto MD Work Phone: [employer]. Start: 07-15-2016 End: 07-15-2016 Patient encounter procedure Moose Barreto MD Work Phone: [employer]. Start: 01-15-2016 End: 01-15-2016 Office outpatient visit 15 minutes Moose Barreto MD Work Phone: [employer]. Start: 01-08-2016 End: 01-08-2016 Orders Moose Barreto MD Work Phone: [employer] Start: 12-22-2015 End: 12-22-2015 Office outpatient visit 15 minutes Moose Barreto MD Work Phone: [employer] Start: 07-10-2015 End: 07-11-2015 Periodic preventive med est patient 65yrs& older Moose Barreto MD Work Phone: [employer]. Start: 05-14-2015 End: 05-14-2015 Office outpatient visit 10 minutes Moose Barreto MD Work Phone: [employer]. Start: 01-09-2015 End: 01-09-2015 Office outpatient visit 15 minutes Moose Barreto MD Work Phone: [employer]. Start: 01-08-2015 End: 01-08-2015 Historical Summary Moose Barreto MD Work Phone: [employer]. Start: 01-02-2015 End: 01-02-2015 Orders Moose Barreto MD Work Phone: [employer]. Start: 07-04-2014 End: 07-04-2014 Periodic preventive med est patient 65yrs& older Moose Barreto MD Work Phone: [employer]. Start: 01-03-2014 End: 01-03-2014 Office outpatient visit 15 minutes Moose Barreto MD Work Phone: [employer]. Start: 12-27-2013 End: 12-27-2013 Orders Moose Barreto MD Work Phone: [employer]. Start: 12-26-2013 End: 12-26-2013 Orders Moose Barreto MD Work Phone: [employer]. Start: 06-28-2013 End: 06-28-2013 Patient encounter procedure Moose Barreto MD Work Phone: [employer]. Start: 12-28-2012 End: 12-28-2012 Patient encounter procedure Moose Barreto MD Work Phone: [employer]. Start: 12-21-2012 End: 12-21-2012 Orders Moose Barreto MD Work Phone: [employer]. Start: 09-16-2012 End: 09-16-2012 Patient encounter procedure Moose Barreto MD Work Phone: [employer] Start: 06-29-2012 End: 06-30-2012 Manual pelvic examination Moose Barreto MD Work Phone: [employer]; [employer]. Start: 06-29-2012 End: 06-30-2012 Patient encounter procedure Moose Barreto MD Work Phone: [employer] Start: 12-23-2011 End: 12-23-2011 Patient encounter procedure Moose Barreto MD Work Phone: [employer] Start: 06-24-2011 End: 06-24-2011 Patient encounter procedure Moose Barreto MD Work Phone: [employer] Start: 06-24-2011 End: 06-24-2011 Routine gynecological examination Moose Barreto MD Work Phone: [employer]; [employer]. Start: 12-24-2010 End: 12-24-2010 Patient encounter procedure Moose Barreto MD Work Phone: [employer] Start: 12-19-2010 End: 12-19-2010 Orders Moose Barreto MD Work Phone: [employer]. Start: 12-17-2010 End: 12-17-2010 Patient encounter procedure Moose Barreto MD Work Phone: [employer] Start: 06-25-2010 End: 06-25-2010 Patient encounter procedure Moose Barreto MD Work Phone: [employer] Start: 06-25-2010 End: 06-25-2010 Routine gynecological examination Moose Barreto MD Work Phone: [employer]; [employer]. Start: 12-27-2009 End: 12-27-2009 Patient encounter procedure Moose Barreto MD Work Phone: [employer] Start: 12-25-2009 End: 12-25-2009 Historical Summary Moose Barreto MD Work Phone: [employer] Start: 12-20-2009 End: 12-20-2009 Orders Moose Barreto MD Work Phone: [facility]. Procedures Date Procedure Procedure Detail Performing Clinician Start: 07-28-2024 X-ray of cervical spine Dr. Moose Barreto MD Work Phone: Start: 07-22-2024 MRI of cervical spine Steff Barreto MD Work Phone: Start: 10-28-2023 End: 10-27-2023 Adv care pln/ no alt dcsn mkr docd or refusal Moose Barreto MD Work Phone: Start: 10-28-2023 End: 10-27-2023 Depression screening Moose Barreto MD Work Phone: Start: 10-28-2023 End: 10-27-2023 Falls risk assessment documented Moose Barreto MD Work Phone: Start: 10-28-2023 End: 10-27-2023 PPPS, subseq visit Moose Barreto MD Work Phone: Start: 10-28-2023 End: 10-27-2023 Pt falls assess docd w/o fall/injury past year Moose Barreto MD Work Phone: Start: 10-28-2023 End: 10-27-2023 Scr dep neg, no plan reqd Moose Barreto MD Work Phone: Start: 10-21-2023 End: 10-21-2023 Lab findings surveillance Manny LEE Comment on above: CMP 107 Start: 10-21-2023 End: 10-21-2023 Lipid panel results documented & reviewed Manny Huitron LPN Comment on above: TC 164, HDL 54, TRI 171, LDL 83 Start: 07-01-2023 End: 07-01-2023 Screening mammography Moose Barreto MD Work Phone: Comment on above: Normal. Within Stephanie l Limits. Start: 06-18-2023 End: 07-21-2023 Screening mammography bi 2-view breast inc cad Moose Barreto MD Work Phone: Start: 10-21-2022 End: 10-21-2022 Adv care pln/ no alt dcsn mkr docd or refusal Moose Barreto MD Work Phone: Start: 10-21-2022 End: 10-21-2022 Depression screening Moose Barreto MD Work Phone: Start: 10-21-2022 End: 10-21-2022 Falls risk assessment documented Moose Barreto MD Work Phone: Start: 10-21-2022 End: 10-21-2022 PPPS, subseq visit oMose Barreto MD Work Phone: Start: 10-21-2022 End: 10-21-2022 Pt falls assess docd w/o fall/injury past year Mooes Barreto MD Work Phone: Start: 10-21-2022 End: 10-21-2022 Scr dep neg, no plan reqd Moose Barreto MD Work Phone: Start: 10-14-2022 End: 10-14-2022 Lab findings surveillance Sydnie perales [employer] Comment on above: 112 in CMP Start: 10-14-2022 End: 10-14-2022 Lipid panel results documented & reviewed Sydnie Boyle [employer] Start: 04-09-2022 End: 04-09-2022 Diagnostic mammography computer-aided detcj uni Moose Barreto MD Work Phone: Comment on above: for 6month follow-up Start: 04-02-2022 End: 04-02-2022 Screening mammography Sydnie Boyle [employer] Comment on above: Normal. Start: 09-24-2021 End: 09-24-2021 Adv care pln/ no alt dcsn mkr docd or refusal Moose Barreto MD Work Phone: Start: 09-24-2021 End: 09-24-2021 Depression screening Moose Barreto MD Work Phone: Start: 09-24-2021 End: 09-24-2021 Falls risk assessment documented Moose Barreto MD Work Phone: Start: 09-24-2021 End: 09-24-2021 PPPS, subseq visit Moose Barreto MD Work Phone: Start: 09-24-2021 End: 09-24-2021 Pt falls assess docd w/o fall/injury past year Moose Barreto MD Work Phone: Start: 09-24-2021 End: 09-24-2021 Scr dep neg, no plan reqd Moose Barreto MD Work Phone: Start: 09-24-2021 End: 10-29-2021 Screening mammography bi 2-view breast inc cad Moose Barreto MD Work Phone: Start: 09-18-2020 End: 09-18-2020 Depression screening Moose Barreto MD Work Phone: Start: 09-18-2020 End: 09-18-2020 Falls risk assessment documented Moose Barreto MD Work Phone: Start: 09-18-2020 End: 09-18-2020 PPPS, subseq visit Moose Barreto MD Work Phone: Start: 09-18-2020 End: 09-18-2020 Pt falls assess docd 2/> falls/fall w/injury/yr Moose Barreto MD Work Phone: Start: 09-18-2020 End: 09-18-2020 Scr dep neg, no plan reqd Moose Barreto MD Work Phone: Start: 08-02-2020 End: 08-03-2020 Screening mammography bi 2-view breast inc cad Moose Barreto MD Work Phone: Start: 01-01-2020 End: 01-01-2020 Laminectomy Sydnie Boyle LP N Comment on above: [place] Start: 08-17-2019 End: 08-17-2019 Screening colonoscopy Sydnie Boyle LPN Comment on above: PandiverticulosisSteff, repeat due in 5 years (2024). Start: 03-29-2019 End: 03-29-2019 Depression screening Moose Barreto MD Work Phone: Start: 03-29-2019 End: 03-29-2019 Falls risk assessment documented Moose Barreto MD Work Phone: Start: 03-29-2019 End: 03-29-2019 PPPS, subseq visit Moose Barreto MD Work Phone: Start: 03-29-2019 End: 03-29-2019 Pt falls assess docd w/o fall/injury past year Moose Barreto MD Work Phone: Start: 03-29-2019 End: 03-29-2019 Scr dep neg, no plan reqd Moose Barreto MD Work Phone: Start: 03-14-2019 End: 03-22-2019 Mri spinal canal lumbar w/o contrast material Moose Barreto MD Work Phone: Start: 03-11-2019 End: 03-14-2019 Radex spine lumbosacral 2/3 views Moose Barreto MD Work Phone: Start: 11-03-2018 End: 11-12-2018 Screening mammography bi 2-view breast inc cad Moose Barreto MD Work Phone: Start: 09-28-2017 End: 10-13-2017 Screening mammography bi 2-view breast inc cad Moose Barreto MD Work Phone: Start: 08-25-2017 End: 08-25-2017 Depression screen annual Moose Artis Work Phone: Start: 08-25-2017 End: 08-25-2017 Falls risk assessment documented Moose Barreto MD Work Phone: Start: 05-05-2017 End: 05-05-2017 Body mass index documented Moose Barreto MD Work Phone: Start: 02-18-2017 End: 02-18-2017 Body mass index documented Moose Barreto MD Work Phone: Start: 02-18-2017 End: 02-18-2017 PPPS, subseq visit Moose Barreto MD Work Phone: Start: 02-18-2017 End: 02-18-2017 Pt falls assess docd w/o fall/injury past year Moose Barreto MD Work Phone: Start: 02-18-2017 End: 02-18-2017 Scr dep neg, no plan reqd Moose Barreto MD Work Phone: Start: 02-18-2017 End: 02-18-2017 Falls risk assessment documented Moose Barreto MD Work Phone: Start: 02-18-2017 End: 02-18-2017 Depression screen annual Moose Artis Work Phone: Start: 07-15-2016 End: 09-08-2016 Screening mammography bi 2-view breast inc cad Moose Barreto MD Work Phone: Start: 07-15-2016 End: 07-15-2016 Depression screen annual Moose Artis Work Phone: Start: 07-15-2016 End: 07-15-2016 Falls risk assessment documented Moose Barreto MD Work Phone: Start: 07-10-2015 End: 07-10-2015 PPPS, subseq visit Michelle Benjamin MD Work Phone: Start: 01-09-2015 End: 02-08-2015 Mammogram, screening Michelle Benjamin MD Work Phone: Start: 07-31-2014 End: 07-31-2014 Ophthalmic examination and evaluation Sydnie Boyle LPN Comment on above: marya Solis Start: 07-04-2014 End: 07-04-2014 PPPS, initial visit Michelle Benjamin MD Work Phone: Start: 12-26-2013 End: 01-10-2014 Mammogram, screening Michelle Benjamin MD Work Phone: Start: 06-28-2013 End: 06-28-2013 Initial preventive exam Michelle Benjamin MD Work Phone: Start: 06-28-2013 End: 06-28-2013 Screening test visual acuity quantitative bilat Michelle Benjamin MD Work Phone: Start: 06-29-2012 End: 11-24-2012 Mammogram, screening Michelle Benjamin MD Work Phone: Start: 06-29-2012 End: 07-05-2012 Radex spine lumbosacral 2/3 views Michelle Benjamin MD Work Phone: Comment on above: low back pain radiat ion to right hip; worse when up walking Start: 06-24-2011 End: 09-22-2011 Mammogram, screening Michelle Benjamin MD Work Phone: Start: 12-17-2010 End: 12-19-2010 Ecg routine ecg w/least 12 lds i&r only Michelle Benjamin MD Work Phone: Start: 06-25-2010 End: 07-12-2010 Mammogram, screening Michelle Benjamin MD Work Phone: Start: 12-27-2009 End: 12-27-2009 Pure tone audiometry air only Michelle Benjamin MD Work Phone: Start: 03-02-2009 End: 03-02-2009 Screening for malignant neoplasm of large intestine Sydnie Smith Tamar MADAI Comment on above: normal colonoscopy ( next due 2014) Start: 06-30-2005 End: 06-30-2005 Bone density scan Libra Tamar WILKINS N Comment on above: Normal. Abdominal hysterectomy Sydnie Smith Tamar ENGINE BOSS Comment on above: for fibroids, ovary intact Abdominal hysterectomy Dong Huitron LPN Comment on above: for fibroids, ovary intact Plan of Treatment Date Care Activity Detail Author Start: 11-15-2024 Patient encounter procedure Medical; PHYSICAL - annual AWV [facility]. Start: 15-Nov-2024 10:00-04:00 MD Moose Barreto Appointment Request [facility]. Start: 11-08-2024 Lipid panel LIPID PANEL ([id number]) Start: 08-Nov-2024 10:45-04:00 Request Fabule.; [facility]. Start: 11-08-2024 Comprehensive metabolic panel CMP w/ GFR* ([id number]) Start: 08-Nov-2024 10:45-04:00 Request Fabule.; [facility]. Start: 11-08-2024 Nursing evaluation of patient and report Medical; Nurse visit - fasting labs- SFB [facility]. Start: 08-Nov-2024 08:40-04:00 NURSE, FLOAT Appointment Request [facility]. Start: 09-14-2024 ambulatory Ambulatory Facility:[facility] Start: 07-28-2024 X-ray of cervical spine Cerv Spine 4 or 5 Views [facility] Start: 07-28-2024 XR Cervical spine 4 or 5 Views [facility] Start: 04-26-2024 Patient encounter procedure [facility]. Start: 10-28-2023 Patient encounter procedure Medical; PHYSICAL - AWV [facility]. Start: 28-Oct-2023 08:40-04:00 MD Moose Barreto Appointment Request [facility]. Start: 10-27-2023 Patient encounter procedure Medical; PHYSICAL - AWV [facility]. Start: 27-Oct-2023 09:10-04:00 MD Moose Barreto Appointment Request [facility]. Start: 10-21-2023 Comprehensive metabolic panel CMP w/ GFR* ([id number]) Start: 21-Oct-2023 Request Fabule.; [facility]. Start: 10-21-2023 Lipid panel LIPID PANEL ([id number]) Start: 21-Oct-2023 Request Fabule.; [facility]. Start: 10-21-2023 Nursing evaluation of patient and report [facility]. Start: 06-18-2023 Screening mammography bi 2-view breast inc cad Mammogram Bilateral Screening Digital w/CAD ([id number]) Start: 18-Jun-2023 Intent [facility].; [employer] Start: 04-28-2023 Patient encounter procedure Medical; RTN OFFICE VISIT - 6 mos rtn [facility]. Start: 28-Apr-2023 9:00 MD Moose Barreto Appointment Request [facility]. Start: 04-01-2022 End: 04-01-2022 Diagnostic mammography computer-aided detcj bi Mammogram Bilateral Diagnostic ([id number]) Date: 01-Apr-2022 [facility].; [employer] Start: 12-24-2010 Patient Education Rosacea *: acne rosacea Indication: Rosacea (Renamed from Acne erythematosa) Start: 24-Dec-2010 Instruction Type: Patient Education [facility]. Patient referral [facility] Work Phone: Immunizations Immunization Date Immunization Notes Care Provider Harrison miller 12-22-2020 COVID-Moderna (100 MCG/0.5 ML) Moose Barreto MD Work Phone: [facility]; [employer] 09-18-2020 tetanus toxoid, redu dinh diphtheria toxoid, and acellular pertussis vaccine, adsorbed Moose Barreto MD Work Phone: [facility]; [place] [facility] 05-02-2020 COVID-Moderna (100 MCG/0.5 ML) Moose Barreto MD Work Phone: [place] [employer]; [employer]. 04-04-2020 COVID-Moderna (100 MCG/0.5 ML) Moose Barreto MD Work Phone: [facility] [employer]; [employer]. 03-14-2020 zoster vaccine recombinant Moose Barreto MD Work Phone: [facility] [employer]; [employer] 11-16-2019 zoster vaccine recombinant Moose Barreto MD Work Phone: [employer]; [employer]. 03-29-2019 Shingrix 50 MCG/0.5M L Intramuscular Suspension Reconstituted Moose Barreto MD Work Phone: [place] [employer] Comment on above: Repeat in 2-6 months 02-18-2017 influenza, injectabl e, quadrivalent, contains preservative Moose Barreto MD Work Phone: [facility]; [employer]. Comment on above: Site: Left DeltoidVI S Given: * Influenza - Inactivated (10/06/14) 01-15-2016 unknown vaccine or i mmune globulin Moose Barreto MD Work Phone: [employer]; [employer] 01-15-2016 influenza, injectabl e, quadrivalent, contains preservative Moose Barreto MD Work Phone: [facility]; [employer] Comment on above: Site: Deltoid (Right )VIS Given: * Influenza - Inactivated (10/06/14) 07-10-2015 pneumococcal conjuga te vaccine, 13 valent Moose Barreto MD Work Phone: [facility] [employer]; [employer] Comment on above: Site: Deltoid (Left) VIS Given: * Pneumococcal Conjugate (PCV13) (04/28/12) 01-09-2015 ADMINISTRATION OF INFLUENZA VIRUS VACCINE (G0008) Moose Barreto MD Work Phone: [facility] [employer]; [employer] 01-09-2015 influenza, seasonal, injectable Moose Barreto MD Work Phone: [employer]; [employer] Comment on above: Site: Deltoid (Left) VIS Given: * Inactivated Influenza (10/06/2014) 01-03-2014 ADMINISTRATION OF INFLUENZA VIRUS VACCINE (G0008) Moose Barreto MD Work Phone: [facility] [employer]; [employer] 01-03-2014 influenza, seasonal, injectable Moose Barreto MD Work Phone: [place] [employer]; [employer]. Comment on above: Site: Deltoid (Right )VIS Given: * Influenza, Inactivated () 06-28-2013 pneumococcal polysaccharide vaccine, 23 valent Moose Barreto MD Work Phone: [employer]; [employer] Comment on above: Site: Deltoid (Left) VIS Given: * Pneumococcal Polysaccharide (PPSV23) (12/05/08) 12-21-2012 influenza, seasonal, injectable Moose Barreto MD Work Phone: [employer]; [employer] Comment on above: Site: Deltoid (Left) VIS Given: * Inactivated Influenza Vaccine (10/10/08) * Inactivated Influenza Vaccine (09/24/10) * Influenza vaccine , inactivated (09/01/2011) * VIS Given (Unspecified) 12-21-2012 IMMUNIZATION ADMIN ([id number]) Moose Barreto MD Work Phone: [facility]; [employer] 12-23-2011 influenza, seasonal, injectable Moose Barreto MD Work Phone: [facility]; [employer] Comment on above: Site: Deltoid (Left) VIS Given: * Inactivated Influenza Vaccine (10/10/08) * Inactivated Influenza Vaccine (09/24/10) * Influenza vaccine , inactivated (09/01/2011) * VIS Given (Unspecified) 12-23-2011 IMMUNIZATION ADMIN ([id number]) Moose Barreto MD Work Phone: [facility] [employer]; [employer] 12-17-2010 influenza, seasonal, injectable Moose Barreto MD Work Phone: [facility]; [employer] Comment on above: Site: Deltoid (Right )VIS Given: * Inactivated Influenza Vaccine (10/10/08) * Inactivated Influenza Vaccine (09/24/10) * Inactivated Influenza Vaccine (09/24/10) * Inactivated Influenza Vaccine (09/24/10) * Inactivated Influenza Vaccine (09/24/10) * Inactivated Influenza Vaccine (09/24/10) * Inactivated Influenza Vaccine (09/24/10) * VIS Given (Unspecified) * VIS Given (Unspecified) 12-27-2009 influenza, seasonal, injectable Moose Barreto MD Work Phone: [facility] [employer]; [employer] Comment on above: Site: Deltoid (Left) VIS Given: * Inactivated Influenza Vaccine (10/10/08) 09-19-2009 zoster vaccine, live Moose trejo MD Work Phone: [facility] [employer]; [employer]. 06-20-2009 tetanus toxoid, redu dinh diphtheria toxoid, and acellular pertussis vaccine, adsorbed Moose Barreto MD Work Phone: [facility]; [facility] Payers Date Payer Category Payer Medicare [id number] 2023 Self-pay 2023 Unknown [id number] 1950 Unknown [id number] 2.16.8 [id number] 1950 Unknown [id number] 2.16.8 [id number] 1950 Unknown [id number] 2.16.8 [id number] Unknown Unknown [id number] 2.16.8 [id number] Unknown [id number] 2.16.8 [id number] Unknown [id number] 2.16.8 [id number] Unknown [id number] 2.16.8 [id number] Unknown [id number] 2.16.8 [id number] Unknown [id number] 2.16.8 [id number] Unknown [id number] 2.16.8 [id number] Unknown [id number] 2.16.8 [id number] Unknown [id number] 2.16.8 [id number] Unknown [id number] 2.16.8 [id number] Social History Date Type Detail Facility (Renamed fro m Spouse) (Renamed from Spouse) [facility], [facility] [facility] Tobacco Use: Tobacco Use: ; N ever smoker. [facility], [facility].; [facility], [facility]. Start: 1950 Female [facility] Start: 08-12-2023 End: 08-31-2024 Never smoked tobacco [facility] Start: 12-30-2019 Tobacco Use Tobacco Use [facility] Tobacco smoking consumption unknown [facility]; [facility] Work Phone: NEGATED: Highlighted row No Social History Information Available No Social History Information Available [facility]; [facility] Work Phone: Medical Equipment Procedure Code Equipment Code Equipment Origin al Text Equipment Identifier Dates PATCH,AMNION 2X3CM FDA Start: 01-12-2020 PATCH,AMNION 2X3CM FDA Start: 01-12-2020 PATCH,AMNION 2X3CM FDA Start: 01-12-2020 PATCH,AMNION 2X3CM FDA Start: 01-12-2020 Evaluation note 07-08-2024 Note Date & Type Note Facility 07-08-2024 Evaluation note Diagnosis Onset Date Resolution Cervical myelopathy acute July 082024 7:55am History of laminectomy acute 2024 7:55am Lumbar scoliosis acute July 08, 2024 7:55am Spinal stenosis of lumbar region with neurogenic claudication acute July 08, 2024 7:55am Spondylolisthesis, lumbar region acute July 08, 2024 7: 55am [facility] Work Phone: Evaluation note 07-08-2024 Note Date & Type Note Facility 07-08-2024 Evaluation note Diagnosis Onset Date Resolution Cervical myelopathy acute July 082024 7:55am History of laminectomy acute Ma 2024 7:55am Lumbar scoliosis acute July 08, 2024 7:55am Spinal stenosis of lumbar region with neurogenic claudication acute July 08, 2024 7:55am Spondylolisthesis, lumbar region acute July 08, 2024 7: 55am Cervical myelopathy acute July 012024 1:16pm History of laminectomy acute Ma y 2024 1:16pm Lumbar scoliosis acute June 1:16pm Spinal stenosis of lumbar region with neurogenic claudication acute June 1:16pm Spondylolisthesis, lumbar region acute July 28, 2024 1 :16pm [facility] Work Phone: Reason for referral (narrative) Note Date & Type Note Facility Reason for referral (narrative) No reason for referral information available [facility] Work Phone: Summary Purpose Family History No Family History Records Found Cerebrovascular Accident Status:Active Comment s:aunts Colon Cancer Status:Active Comments:Mother. Coronary Artery Disease Status:Active Comments :Father. Sister. Hypertension Status:Active Comments:Mother. Prostate Cancer Status:Active Comments:Father. Rosacea Status:Active Comments:Father. Brother. Transient ischemic attack Status:Active Commen ts:Mother. vascular dementia Status:Active Comments:Sailaja stauffer Cerebrovascular Accident Status:Active Comment s:aunts Colon Cancer Status:Active Comments:Mother. Coronary Artery Disease Status:Active Comments :Father. Sister. Hypertension Status:Active Comments:Mother. Prostate Cancer Status:Active Comments:Father. Rosacea Status:Active Comments:Father. Brother. Transient ischemic attack Status:Active Commen ts:Mother. vascular dementia Status:Active Comments:Sail[place] stauffer Cerebrovascular Accident Status:Active Comment s:aunts Colon Cancer Status:Active Comments:Mother. Coronary Artery Disease Status:Active Comments :Father. Sister. Hypertension Status:Active Comments:Mother. Prostate Cancer Status:Active Comments:Father. Rosacea Status:Active Comments:Father. Brother. Transient ischemic attack Status:Active Commen ts:Mother. vascular dementia Status:Active Comments:Sailaja stauffer Cerebrovascular Accident Status:Active Comment s:aunts Colon Cancer Status:Active Comments:Mother. Coronary Artery Disease Status:Active Comments :Father. Sister. Hypertension Status:Active Comments:Mother. Prostate Cancer Status:Active Comments:Father. Rosacea Status:Active Comments:Father. Brother. Transient ischemic attack Status:Active Commen ts:Mother. vascular dementia Status:Active Comments:Sailaja stauffer Cerebrovascular Accident Status:Active Comment s:aunts Colon Cancer Status:Active Comments:Mother. Coronary Artery Disease Status:Active Comments :Father. Sister. Hypertension Status:Active Comments:Mother. Prostate Cancer Status:Active Comments:Father. Rosacea Status:Active Comments:Father. Brother. Transient ischemic attack Status:Active Commen ts:Mother. vascular dementia Status:Active Comments:Sailaja stauffer Cerebrovascular Accident Status:Active Comment s:aunts Colon Cancer Status:Active Comments:Mother. Coronary Artery Disease Status:Active Comments :Father. Sister. Hypertension Status:Active Comments:Mother. Prostate Cancer Status:Active Comments:Father. Rosacea Status:Active Comments:Father. Brother. Transient ischemic attack Status:Active Commen ts:Mother. vascular dementia Status:Active Comments:Sailaja stauffer Cerebrovascular Accident Status:Active Comment s:aunts Colon Cancer Status:Active Comments:Mother. Coronary Artery Disease Status:Active Comments :Father. Sister. Hypertension Status:Active Comments:Mother. Prostate Cancer Status:Active Comments:Father. Rosacea Status:Active Comments:Father. Brother. Transient ischemic attack Status:Active Commen ts:Mother. vascular dementia Status:Active Comments:Sailaja miner. Cerebrovascular Accident Status:Active Comment s:aunts Colon Cancer Status:Active Comments:Mother. Coronary Artery Disease Status:Active Comments :Father. Sister. Hypertension Status:Active Comments:Mother. Prostate Cancer Status:Active Comments:Father. Rosacea Status:Active Comments:Father. Brother. Transient ischemic attack Status:Active Commen ts:Mother. vascular dementia Status:Active Comments:Sailaja stauffer Cerebrovascular Accident Status:Active Comment s:aunts Colon Cancer Status:Active Comments:Mother. Coronary Artery Disease Status:Active Comments :Father. Sister. Hypertension Status:Active Comments:Mother. Prostate Cancer Status:Active Comments:Father. Rosacea Status:Active Comments:Father. Brother. Transient ischemic attack Status:Active Commen ts:Mother. vascular dementia Status:Active Comments:Sailaja stauffer Cerebrovascular Accident Status:Active Comment s:aunts Colon Cancer Status:Active Comments:Mother. Coronary Artery Disease Status:Active Comments :Father. Sister. Hypertension Status:Active Comments:Mother. Prostate Cancer Status:Active Comments:Father. Rosacea Status:Active Comments:Father. Brother. Transient ischemic attack Status:Active Commen ts:Mother. vascular dementia Status:Active Comments:Sailaja stauffer Cerebrovascular Accident Status:Active Comment s:aunts Colon Cancer Status:Active Comments:Mother. Coronary Artery Disease Status:Active Comments :Father. Sister. Hypertension Status:Active Comments:Mother. Prostate Cancer Status:Active Comments:Father. Rosacea Status:Active Comments:Father. Brother. Transient ischemic attack Status:Active Commen ts:Mother. vascular dementia Status:Active Comments:Sailaja stauffer Cerebrovascular Accident Status:Active Comment s:aunts Colon Cancer Status:Active Comments:Mother. Coronary Artery Disease Status:Active Comments :Father. Sister. Hypertension Status:Active Comments:Mother. Prostate Cancer Status:Active Comments:Father. Rosacea Status:Active Comments:Father. Brother. Transient ischemic attack Status:Active Commen ts:Mother. vascular dementia Status:Active Comments:Sailaja stauffer Cerebrovascular Accident Status:Active Comment s:aunts Colon Cancer Status:Active Comments:Mother. Coronary Artery Disease Status:Active Comments :Father. Sister. Hypertension Status:Active Comments:Mother. Prostate Cancer Status:Active Comments:Father. Rosacea Status:Active Comments:Father. Brother. Transient ischemic attack Status:Active Commen ts:Mother. vascular dementia Status:Active Comments:Sailaja stauffer Cerebrovascular Accident Status:Active Comment s:aunts Colon Cancer Status:Active Comments:Mother. Coronary Artery Disease Status:Active Comments :Father. Sister. Hypertension Status:Active Comments:Mother. Prostate Cancer Status:Active Comments:Father. Rosacea Status:Active Comments:Father. Brother. Transient ischemic attack Status:Active Commen ts:Mother. vascular dementia Status:Active Comments:Sailaja stauffer Cerebrovascular Accident Status:Active Comment s:aunts Colon Cancer Status:Active Comments:Mother. Coronary Artery Disease Status:Active Comments :Father. Sister. Hypertension Status:Active Comments:Mother. Prostate Cancer Status:Active Comments:Father. Rosacea Status:Active Comments:Father. Brother. Transient ischemic attack Status:Active Commen ts:Mother. vascular dementia Status:Active Comments:Sailaja stauffer Cerebrovascular Accident Status:Active Comment s:aunts Colon Cancer Status:Active Comments:Mother. Coronary Artery Disease Status:Active Comments :Father. Sister. Hypertension Status:Active Comments:Mother. Prostate Cancer Status:Active Comments:Father. Rosacea Status:Active Comments:Father. Brother. Transient ischemic attack Status:Active Commen ts:Mother. vascular dementia Status:Active Comments:Sailaja stauffer Cerebrovascular Accident Status:Active Comment s:aunts Colon Cancer Status:Active Comments:Mother. Coronary Artery Disease Status:Active Comments :Father. Sister. Hypertension Status:Active Comments:Mother. Prostate Cancer Status:Active Comments:Father. Rosacea Status:Active Comments:Father. Brother. Transient ischemic attack Status:Active Commen ts:Mother. vascular dementia Status:Active Comments:Sailaja stauffer Cerebrovascular Accident Status:Active Comment s:aunts Colon Cancer Status:Active Comments:Mother. Coronary Artery Disease Status:Active Comments :Father. Sister. Hypertension Status:Active Comments:Mother. Prostate Cancer Status:Active Comments:Father. Rosacea Status:Active Comments:Father. Brother. Transient ischemic attack Status:Active Commen ts:Mother. vascular dementia Status:Active Comments:Sailaja stauffer Cerebrovascular Accident Status:Active Comment s:aunts Colon Cancer Status:Active Comments:Mother. Coronary Artery Disease Status:Active Comments :Father. Sister. Hypertension Status:Active Comments:Mother. Prostate Cancer Status:Active Comments:Father. Rosacea Status:Active Comments:Father. Brother. Transient ischemic attack Status:Active Commen ts:Mother. vascular dementia Status:Active Comments:Sailaja stauffer Cerebrovascular Accident Status:Active Comment s:aunts Colon Cancer Status:Active Comments:Mother. Coronary Artery Disease Status:Active Comments :Father. Sister. Hypertension Status:Active Comments:Mother. Prostate Cancer Status:Active Comments:Father. Rosacea Status:Active Comments:Father. Brother. Transient ischemic attack Status:Active Commen ts:Mother. vascular dementia Status:Active Comments:Sailaja stauffer Cerebrovascular Accident Status:Active Comment s:aunts Colon Cancer Status:Active Comments:Mother. Coronary Artery Disease Status:Active Comments :Father. Sister. Hypertension Status:Active Comments:Mother. Prostate Cancer Status:Active Comments:Father. Rosacea Status:Active Comments:Father. Brother. Transient ischemic attack Status:Active Commen ts:Mother. vascular dementia Status:Active Comments:Sailaja stauffer Cerebrovascular Accident Status:Active Comment s:aunts Colon Cancer Status:Active Comments:Mother. Coronary Artery Disease Status:Active Comments :Father. Sister. Hypertension Status:Active Comments:Mother. Prostate Cancer Status:Active Comments:Father. Rosacea Status:Active Comments:Father. Brother. Transient ischemic attack Status:Active Commen ts:Mother. vascular dementia Status:Active Comments:Sailaja stauffer Cerebrovascular Accident Status:Active Comment s:aunts Colon Cancer Status:Active Comments:Mother. Coronary Artery Disease Status:Active Comments :Father. Sister. Hypertension Status:Active Comments:Mother. Prostate Cancer Status:Active Comments:Father. Rosacea Status:Active Comments:Father. Brother. Transient ischemic attack Status:Active Commen ts:Mother. vascular dementia Status:Active Comments:Sailaja stauffer Cerebrovascular Accident Status:Active Comment s:aunts Colon Cancer Status:Active Comments:Mother. Coronary Artery Disease Status:Active Comments :Father. Sister. Hypertension Status:Active Comments:Mother. Prostate Cancer Status:Active Comments:Father. Rosacea Status:Active Comments:Father. Brother. Transient ischemic attack Status:Active Commen ts:Mother. vascular dementia Status:Active Comments:Sailaja stauffer Cerebrovascular Accident Status:Active Comment s:aunts Colon Cancer Status:Active Comments:Mother. Coronary Artery Disease Status:Active Comments :Father. Sister. Hypertension Status:Active Comments:Mother. Prostate Cancer Status:Active Comments:Father. Rosacea Status:Active Comments:Father. Brother. Transient ischemic attack Status:Active Commen ts:Mother. vascular dementia Status:Active Comments:Sailaja stauffer Cerebrovascular Accident Status:Active Comment s:aunts Colon Cancer Status:Active Comments:Mother. Coronary Artery Disease Status:Active Comments :Father. Sister. Hypertension Status:Active Comments:Mother. Prostate Cancer Status:Active Comments:Father. Rosacea Status:Active Comments:Father. Brother. Transient ischemic attack Status:Active Commen ts:Mother. vascular dementia Status:Active Comments:Sailaja stauffer Relationship Condition Age at Onset Recorded Date/T [place] mother Malignant neoplasm Unknown father Heart problem Unknown Cerebrovascular Accident Status:Active Comment s:aunts Colon Cancer Status:Active Comments:Mother. Coronary Artery Disease Status:Active Comments :Father. Sister. Hypertension Status:Active Comments:Mother. Prostate Cancer Status:Active Comments:Father. Rosacea Status:Active Comments:Father. Brother. Transient ischemic attack Status:Active Commen ts:Mother. vascular dementia Status:Active Comments:Sailaja stauffer Cerebrovascular Accident Status:Active Comment s:aunts Colon Cancer Status:Active Comments:Mother. Coronary Artery Disease Status:Active Comments :Father. Sister. Hypertension Status:Active Comments:Mother. Prostate Cancer Status:Active Comments:Father. Rosacea Status:Active Comments:Father. Brother. Transient ischemic attack Status:Active Commen ts:Mother. vascular dementia Status:Active Comments:Sailaja stauffer Cerebrovascular Accident Status:Active Comment s:aunts Colon Cancer Status:Active Comments:Mother. Coronary Artery Disease Status:Active Comments :Father. Sister. Hypertension Status:Active Comments:Mother. Prostate Cancer Status:Active Comments:Father. Rosacea Status:Active Comments:Father. Brother. Transient ischemic attack Status:Active Commen ts:Mother. vascular dementia Status:Active Comments:Sailaja stauffer Cerebrovascular Accident Status:Active Comment s:aunts Colon Cancer Status:Active Comments:Mother. Coronary Artery Disease Status:Active Comments :Father. Sister. Hypertension Status:Active Comments:Mother. Prostate Cancer Status:Active Comments:Father. Rosacea Status:Active Comments:Father. Brother. Transient ischemic attack Status:Active Commen ts:Mother. vascular dementia Status:Active Comments:Sailaja stauffer Cerebrovascular Accident Status:Active Comment s:aunts Colon Cancer Status:Active Comments:Mother. Coronary Artery Disease Status:Active Comments :Father. Sister. Hypertension Status:Active Comments:Mother. Prostate Cancer Status:Active Comments:Father. Rosacea Status:Active Comments:Father. Brother. Transient ischemic attack Status:Active Commen ts:Mother. vascular dementia Status:Active Comments:Sailaja stauffer Cerebrovascular Accident Status:Active Comment s:aunts Colon Cancer Status:Active Comments:Mother. Coronary Artery Disease Status:Active Comments :Father. Sister. Hypertension Status:Active Comments:Mother. Prostate Cancer Status:Active Comments:Father. Rosacea Status:Active Comments:Father. Brother. Transient ischemic attack Status:Active Commen ts:Mother. vascular dementia Status:Active Comments:Sailaja stauffer Cerebrovascular Accident Status:Active Comment s:aunts Colon Cancer Status:Active Comments:Mother. Coronary Artery Disease Status:Active Comments :Father. Sister. Hypertension Status:Active Comments:Mother. Prostate Cancer Status:Active Comments:Father. Rosacea Status:Active Comments:Father. Brother. Transient ischemic attack Status:Active Commen ts:Mother. vascular dementia Status:Active Comments:Sailaja stauffer Cerebrovascular Accident Status:Active Comment s:aunts Colon Cancer Status:Active Comments:Mother. Coronary Artery Disease Status:Active Comments :Father. Sister. Hypertension Status:Active Comments:Mother. Prostate Cancer Status:Active Comments:Father. Rosacea Status:Active Comments:Father. Brother. Transient ischemic attack Status:Active Commen ts:Mother. vascular dementia Status:Active Comments:Sailaja stauffer Cerebrovascular Accident Status:Active Comment s:aunts Colon Cancer Status:Active Comments:Mother. Coronary Artery Disease Status:Active Comments :Father. Sister. Hypertension Status:Active Comments:Mother. Prostate Cancer Status:Active Comments:Father. Rosacea Status:Active Comments:Father. Brother. Transient ischemic attack Status:Active Commen ts:Mother. vascular dementia Status:Active Comments:Sailaja stauffer Cerebrovascular Accident Status:Active Comment s:aunts Colon Cancer Status:Active Comments:Mother. Coronary Artery Disease Status:Active Comments :Father. Sister. Hypertension Status:Active Comments:Mother. Prostate Cancer Status:Active Comments:Father. Rosacea Status:Active Comments:Father. Brother. Transient ischemic attack Status:Active Commen ts:Mother. vascular dementia Status:Active Comments:Sailaja stauffer Cerebrovascular Accident Status:Active Comment s:aunts Colon Cancer Status:Active Comments:Mother. Coronary Artery Disease Status:Active Comments :Father. Sister. Hypertension Status:Active Comments:Mother. Prostate Cancer Status:Active Comments:Father. Rosacea Status:Active Comments:Father. Brother. Transient ischemic attack Status:Active Commen ts:Mother. vascular dementia Status:Active Comments:Sailaja stauffer Cerebrovascular Accident Status:Active Comment s:aunts Colon Cancer Status:Active Comments:Mother. Coronary Artery Disease Status:Active Comments :Father. Sister. Hypertension Status:Active Comments:Mother. Prostate Cancer Status:Active Comments:Father. Rosacea Status:Active Comments:Father. Brother. Transient ischemic attack Status:Active Commen ts:Mother. vascular dementia Status:Active Comments:Sailaja stauffer Cerebrovascular Accident Status:Active Comment s:aunts Colon Cancer Status:Active Comments:Mother. Coronary Artery Disease Status:Active Comments :Father. Sister. Hypertension Status:Active Comments:Mother. Prostate Cancer Status:Active Comments:Father. Rosacea Status:Active Comments:Father. Brother. Transient ischemic attack Status:Active Commen ts:Mother. vascular dementia Status:Active Comments:Sailaja stauffer Advance Directives No Advanced Directives Records FoundNo Advanced Directives Records FoundNo Advanced Directives Records FoundNo Advanced Directives Records Found Chief Complaint and Reason for Visit Chief Complaint Admit Date LUMBAR SPINE July 08, 2024 7:55am CERIVCAL MYELOPATHY July 22, 2024 7:44a m Reason for Visit Admit Date Cervical myelopathy July 08, 2024 7:55am History of laminectomy July 08, 2024 7:5 5am Lumbar scoliosis July 08, 2024 7:55am Spinal stenosis of lumbar region with ne urogenic claudication July 08, 2024 7:55am Spondylolisthesis, lumbar region June 7:55am Chief Complaint Admit Date LUMBAR SPINE July 08, 2024 7:55am CERIVCAL MYELOPATHY July 22, 2024 7:44a m CERVICAL SPINE July 28, 2024 1:16p m RM 3 July 28, 2024 1:36p m Chief Complaint Admit Date LUMBAR SPINE July 08, 2024 7:55am CERIVCAL MYELOPATHY July 22, 2024 7:44a m CERVICAL SPINE July 28, 2024 1:16p m RM 3 July 28, 2024 1:36p m cervical spine September 01, 2024 10:23 am Reason for Visit Admit Date Cervical myelopathy July 08, 2024 7:55am History of laminectomy July 08, 2024 7:5 5am Lumbar scoliosis July 08, 2024 7:55am Spinal stenosis of lumbar region with ne urogenic claudication July 08, 2024 7:55am Spondylolisthesis, lumbar region June 7:55am Cervical myelopathy July 28, 2024 1:16p m History of laminectomy July 28, 2024 1: 16pm Lumbar scoliosis July 28, 2024 1:16p m Spinal stenosis of lumbar region with ne urogenic claudication July 28, 2024 1:16pm Spondylolisthesis, lumbar region June 1:16pm Additional Source Comments INFORMATION SOURCE (unrecogn ized section and content) DATE CREATED AUTHOR 06/23/[address] [facility] DATE CREATED AUTHOR AUTHOR'S ORGANIZ ATION 10/23/2023 [facility] DATE CREATED AUTHOR AUTHOR'S ORGANIZ ATION 12/14/2023 [facility] DATE CREATED AUTHOR AUTHOR'S ORGANIZ ATION 09/08/2024 [facility] Care Teams (unrecognized sec tion and content) Team Status: Active Member Role Status Dates Dr. Moose Barreto MD Primary Care Provider Active Team Status: Inactive Member Role Status Dates Dr. Moose Barreto MD Primary Care Provider Active Start: July 08, 2024 End: July 08, 2024 Dr. Moose Barreto MD Referring Provider Active S tart: July 08, 2024 End: July 08, 2024 Dr. Guerrero Valdivia MD Attending Provider Active Start: July 08, 2024 End: July 08, 2024 Team Status: Inactive Member Role Status Dates Dr. Moose Barreto MD Primary Care Provider Active Start: July 22, 2024 End: July 22, 2024 Dr. Guerrero Valdivia MD Attending Provider Active Start: July 22, 2024 End: July 22, 2024 Dr. Guerrero Valdivia MD Referring Provider Active Start: July 22, 2024 End: July 22, 2024 Team Status: Active Member Role Status Dates Dr. Moose Barreto MD Primary Care Provider Active Start: July 28, 2024 Dr. Moose Barreto MD Referring Provider Active S tart: July 28, 2024 Dr. Guerrero Valdivia MD Attending Provider Active Start: July 28, 2024 Team Status: Inactive Member Role Status Dates Dr. Moose Barreto MD Primary Care Provider Active Start: July 28, 2024 End: July 28, 2024 Dr. Chente Whitmore MD Attending Provider Active S tart: July 28, 2024 End: July 28, 2024 Team Status: Inactive Member Role Status Dates Dr. oMose Barreto MD Primary Care Provider Active Start: July 28, 2024 End: July 28, 2024 Dr. Moose Barreto MD Referring Provider Active S tart: July 28, 2024 End: July 28, 2024 Dr. Guerrero Valdivia MD Attending Provider Active Start: July 28, 2024 End: July 28, 2024 Team Status: Active Member Role/Relationship Status Dates Dr. Moose Barreto MD Primary Care Provider Active Team Status: Inactive Member Role/Relationship Status Dates Dr. Moose Barreto MD Primary Care Provider Active Start: July 08, 2024 End: July 08, 2024 Dr. Moose Barreto MD Referring Provider Active S tart: July 08, 2024 End: July 08, 2024 Dr. Guerrero Valdivia MD Attending Provider Active Start: July 08, 2024 End: July 08, 2024 Team Status: Inactive Member Role/Relationship Status Dates Dr. Moose Barreto MD Primary Care Provider Active Start: July 22, 2024 End: July 22, 2024 Dr. Guerrero Valdivia MD Attending Provider Active Start: July 22, 2024 End: July 22, 2024 Dr. Guerrero Valdivia MD Referring Provider Active Start: July 22, 2024 End: July 22, 2024 Team Status: Inactive Member Role/Relationship Status Dates Dr. Moose Barreto MD Primary Care Provider Active Start: July 28, 2024 End: July 28, 2024 Dr. Moose Barreto MD Referring Provider Active S tart: July 28, 2024 End: July 28, 2024 Dr. Guerrero Valdivia MD Attending Provider Active Start: July 28, 2024 End: July 28, 2024 Team Status: Inactive Member Role/Relationship Status Dates Dr. Moose Barreto MD Primary Care Provider Active Start: July 28, 2024 End: July 28, 2024 Dr. Chente Whitmore MD Attending Provider Active S tart: July 28, 2024 End: July 28, 2024 Team Status: Inactive Member Role/Relationship Status Dates Dr. Moose Barreto MD Primary Care Provider Active Start: September 01, 2024 End: September 01, 2024 Dr. Moose Barreto MD Referring Provider Active S tart: September 01, 2024 End: September 01, 2024 Dr. Guerrero Valdivia MD Attending Provider Active Start: September 01, 2024 End: September 01, 2024 Goals (unrecognized section and content) Goals may be documented in a n alternate sectionGoals may be documented in an alternate sectionGoals may be documented in an alternate sectionGoals may be documented in an alternate section FOR RECORDS PERTAINING TO PATIENTS WHO ARE OR HAVE BEEN ENROLLED IN A CHEMICAL DEPENDENCY/SUBSTANCEABUSE PROGRAM, SOME INFORMATION MAY BE OMITTED. This clinical summary was aggregated from multiple sources. Caution should be exercised in using it in the provision of clinical care. This summary normalizes information from multiple sources, and as a consequence, information in this document may materially change the coding, format and clinical context of patient data. In addition, data may be omitted in some cases. CLINICAL DECISIONS SHOULD BE BASED ON THE PRIMARY CLINICAL RECORDS. [employer] provides no warranty or guarantee of the accuracy or completeness of information in this document.
[2024-09-14] MEDS: Lactated Ringers 1,000 ML 15 ML IV (06:58)
[2024-09-14] MEDS: Magnesium 1 GM over 15 mins IV (06:59)
--- NOTE | 2024-09-14 07:00 | RAD_ITS ---
EXAM: XR Cervical Spine, 4 or 5 Views CLINICAL INDICATION: ANTERIOR CERVICAL FUSION C3-4 C4-5 TECHNIQUE: Frontal, lateral and bilateral oblique views of the cervical spine. COMPARISON: No relevant prior studies available. FINDINGS: VERTEBRAE: Unremarkable. No acute fracture. Normal alignment. DISC SPACES: No acute findings. No significant narrowing. SOFT TISSUES: Unremarkable. OTHER FINDINGS: A total 4 spot images were obtained. Total fluoroscopy time 6.5 seconds. Total radiation dose 1.34 mGy. RAD/Cerv Spine 2 or 3 Views IMPRESSION: Fluoroscopic guidance was used intraoperatively. Please refer to the operative note for further details. Reading [facility]
--- NOTE | 2024-09-14 07:34 | PCM.PRE.AN2 ---
ASA Classification* ASA Classification ASA Classification: 2 Assessment & Plan Anesthesia* Anesthesia Assessment Anesthesia Assessment: Discussed sedation and/or anesthesia options, risks, benefits, and alternatives with patient/parents/legal guardian/POA. Questions invited. The patient/parents/legal guardian/POA seems to understand and agrees to proceed with anesthesia plan. Reviewed the physical assessment, medical history, allergy history and patient home medications list prior to surgery/procedure/anesthetic and documented any changes. Performed airway and anesthesia risk assessments. Anesthesia Type Anesthesia Type: General History Source History Obtained from:: Patient and Chart Anesthesia Focused Assessment* Temperature: 98.9 F Pulse Rate: 73 Blood Pressure: 155/94 Respiratory Rate: 16 Pulse Ox: 97 Oxygen Delivery Method: Room Air Airway Assessment Mouth opens: >3 cm Mallampati Score: II Teeth Condition: Intact and Caps/Crowns (front top teeth with crowns and bridge) Labs Anesthesia Preop lab: CBC WBC 6.0 K/mm3 (4.4-11.0) 09/01/24 09:38 09/01/24 RBC 5.08 M/mm3 (4.2-5.4) 09/01/24 09:38 09/01/24 Hgb 14.9 g/dL (12.0-15.0) 09/01/24 09:38 09/01/24 Hct 42.7 % (37-47) 09/01/24 09:38 09/01/24 Plt Count 279 K/mm3 (150-450) 09/01/24 09:38 09/01/24 CHEMISTRY Potassium 3.8 mmol/L (3.3-5.1) 09/01/24 09:38 09/01/24 Sodium 141 mmol/L (133-145) 09/01/24 09:38 09/01/24 Magnesium 2.1 mg/dL (1.5-2.2) 09/01/24 09:38 09/01/24 BUN 18 mg/dL (4-19) 09/01/24 09:38 09/01/24 Creatinine 0.92 mg/dL (0.70-1.20) 09/01/24 09:38 09/01/24 Glucose 114 mg/dL (70-99) H 09/01/24 09:38 09/01/24 POC Glucose 111 mg/dL (74-106) H 09/14/24 06:39 09/14/24 COAG Pre-Assessment Diagnosis/Proposed Procedure Planned Operative Procedure(s): ANTEROIR CERVICAL DISC FUSION C3-4 AND C4-5 Anesthesia History 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 When Was Last Pacemaker Check QUESTION #4 FULL TEXT: You/Your Family Experience fever (hyperthermia) with Anesthesia Last Oral Intake Last Oral intake: Last Oral Intake NPO since 04:00 09/14/24 06:42 Meds taken in AM with sips of Yes 09/14/24 06:42 water? Meds patient instructed to prilosec and atenolol 09/14/24 06:42 take am of surgery PONV PONV - mail carrier and clerk: PONV - mail carrier and clerk Female Yes 08/31/24 10:11 HX of Motion Sickness No 08/31/24 10:11 HX of N/V After Surgery No 08/31/24 10:11 Non-Smoker Yes 08/31/24 10:11 Duration of Surgery greater Yes 08/31/24 10:11 than 60 minutes Number of Risk Factors 3 08/31/24 10:11 PONV Score Moderate Risk 08/31/24 10:11 Height & Weight Height & Weight: Anesthesia: Height & Weight Height 5 ft 2 in 09/14/24 06:42 Weight: 76 kg 09/14/24 06:42 Body Mass Index (BMI) 30.6 09/14/24 06:42 Respiratory Assessment Respiratory Assessment - mail carrier and clerk: Respiratory Tract Infection Hx - mail carrier and clerk Hx Respiratory Tract Infection No 08/31/24 10:11 STOP Sleep Apnea STOP Sleep Apnea - mail carrier and clerk: STOP Sleep Apnea - mail carrier and clerk Hx Hypertension Yes: CONTROLLED WITH MEDS 08/31/24 10:11 Hx Sleep Apnea No 08/31/24 10:11 CPAP BIPAP Do you snore loudly (louder Yes 08/31/24 10:11 than talking or can be heard Do you often feel tired/ No 08/31/24 10:11 fatigued/ sleepy during daytime? Has anyone observed you stop No 08/31/24 10:11 breathing during sleep? STOP Results Positive 08/31/24 10:11 QUESTION #5 FULL TEXT : Do you snore loudly (louder than talking or can be heard through closed doors)? 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 Specify any problems Hx of Preganancy in last 3 No 08/31/24 10:11 Months Nurse Filling Out Transfusion [id number] 08/31/24 10:11 & Questions: Date: 08/31/24 08/31/24 10:11 Time: 10:19 08/31/24 10:11 Patient unable to answer at this time (ie. confused, unrespo /Reproduction History /Reproductive History - mail carrier and clerk: /Reproductive Hx- mail carrier and clerk Hx Now Gestational Age (in weeks): EDC: Hx Hx Para Hx Section SAB Active Medications Active Medications: Current Medications Generic Name Dose Route Start Last Admin Trade Name Freq PRN Reason Stop Dose Admin Clindamycin Phosphate 900 mg in 50 mls @ 75 mls/hr 09/14/24 07:30 Cleocin IV 09/14/24 08:09 INTRAOP ONE Tranexamic Acid 1,000 mg/ 110 mls @ 440 mls/hr 09/14/24 07:30 Sodium Chloride IV 09/14/24 07:44 INTRAOP ONE Tranexamic Acid 1,000 mg/ 110 mls @ 440 mls/hr 09/14/24 07:30 Sodium Chloride IV 09/14/24 07:44 INTRAOP ONE Magnesium Sulfate 1 gm/ 102 mls @ 408 mls/hr 09/14/24 07:30 09/14/24 06:59 Dextrose IV 09/14/24 07:44 408 mls/hr PREOP ONE Administration Lactated Ringer's 1,000 mls @ 15 mls/hr 09/14/24 06:15 09/14/24 06:58 IV 15 mls/hr .Q48H ROSE Administration Insulin Human Lispro 1 - 6 unit 09/14/24 07:30 Insulin Lispro 100 Unit/Ml Insuln.Pen SC Q4H PRN PRN BG>/= 180, SEE PROTOCOL Protocol PFSH Medical History Wears glasses Arthritis High cholesterol Gastric reflux Non-smoker History of pain when walking History of stress test Cataract Hyperlipidemia HTN (hypertension) Home Medications ?Medication ?Instructions ?Recorded ?Last Taken ?Type atenolol 25 mg tablet 25 mg PO DAILY 11/21/19 09/14/24 History glucosamine 500 mg-msm 100 mg-vit 1 cap PO DAILY 11/21/19 09/13/24 History C 20 [id number]-primrose capsule hydrochlorothiazide 25 mg tablet 25 mg PO DAILY 11/21/19 09/13/24 History lovastatin 20 mg tablet 20 mg PO QHS 11/21/19 09/13/24 History multivitamin (Multiple Vitamins 1 tab PO DAILY 11/21/19 09/13/24 History tablet) omega 6-hxh-zzu-fish oil 1,000 mg 1 cap PO DAILY 11/21/19 08/31/24 History (120 mg-180 mg) capsule (Fish Oil) turmeric root extract 500 mg 500 mg PO DAILY 11/21/19 09/13/24 History capsule omeprazole 20 mg capsule,delayed 20 mg PO .QOD 07/08/24 09/14/24 History release Allergy/AdvReac Type Severity Reaction Status Date / Time Penicillins Allergy Hives Verified 09/14/24 06:38 Family History Mother Cancer Father Heart problem Surgical History H/O removal of cyst History of lumbar laminectomy H/O: hysterectomy Social History household members: spouse housing: house Smoking Status: Never smoker alcohol intake: never what type of physical activity do you participate in: none do you feel safe at home: Yes Review of Systems (Anesthesia) ROS Narrative System reviewed and no additional complaints, except as documented. Physical Exam Const alert and oriented x3 Neck full ROM Resp normal respiratory effort and normal air movement Cardio regular rate Back/Spine normal ROM Neuro oriented x3 and moves all extremities Motor Exam: muscle tone normal throughout
--- NOTE | 2024-09-14 08:19 | HP.PCM_ITS ---
History and Physical Date of Admission: 09/14/24 MR#: [id number] Acct: [id number] Name: DINORA SPAULDING Rep #: [id number] : 1950 Provider: Dr. Graham Valdivia MD Age/Sex: 74/F Location: [facility] [place].JESSICA Status: Signed Intake Vital Signs 07/28/2512:21 09/01/2509:40 Height 5 ft 2 in 5 ft 2 in Weight: 170 lb 4 oz 166 lb BMI 31.1 30.3 Intake Visit Reasons: cervical spine Chief Complaint: Cervcal spine pre op Accompanied by: Self Is patient in pain?: Yes Pain scale (1-10): 1 Allergies Penicillins Allergy (Verified 09/01/24 10:44) Hives Medications ?Medication ?Instructions ?Recorded ?Confirmed ?Type atenolol 25 mg tablet 25 mg PO DAILY 11/21/19 09/01/24 History glucosamine 500 mg-msm 100 mg-vit 1 cap PO DAILY 11/21/19 09/01/24 History C 20 uy-jhrgk-mokr-primrose capsule hydrochlorothiazide 25 mg tablet 25 mg PO DAILY 11/21/19 09/01/24 History lovastatin 20 mg tablet 20 mg PO QHS 11/21/19 09/01/24 History multivitamin (Multiple Vitamins 1 tab PO DAILY 11/21/19 09/01/24 History tablet) omega 5-lyr-vqi-fish oil 1,000 mg 1 cap PO DAILY 11/21/19 09/01/24 History (120 mg-180 mg) capsule (Fish Oil) turmeric root extract 500 mg 500 mg PO DAILY 11/21/19 09/01/24 Histor y capsule omeprazole 20 mg capsule,delayed 20 mg PO .QOD 07/08/24 09/01/24 History release Have you fallen in the past year?: No PFSH Medical History Wears glasses Arthritis High cholesterol Gastric reflux Non-smoker History of pain when walking History of stress test Cataract Hyperlipidemia HTN (hypertension) Surgical History H/O removal of cyst History of lumbar laminectomy H/O: hysterectomy Family History Mother CancerFather Heart problem Social History household members: spouse housing: house Smoking Status: Never smoker alcohol intake: never what type of physical activity do you participate in: none do you feel safe at home: Yes HPI cervical spine Details: This documentation accurately reflects the service provided and the decisions made by me, Dr. Graham Valdivia MD 09/01/24 1040. Part of today?s visit was documented by Brandy Stauffer MA, acting as scribe. DINORA SPAULDING is a 74 year old F here today for cervical spine pre op. Patient states that she would like to discuss more about the surgery. Her pcp wanted to know if she should still take the fish oil before or after surgery. Patient states that she hasn't had any injections or physical therapy. The patient is a 74-year-old female presenting for a pre-operative consultation for cervical spine surgery. The surgery will involve working on the C3-5 vertebrae with a 1-inch transverse incision expected to heal well. The patient will have a collar and a drain post-operatively, with plans for x-rays and discharge the following day if stable. The patient has a history of essential tremor, which she perceives in her neck, although her primary care physician does not confirm this diagnosis. Her father had essential tremor, which worsened over time, requiring medication and eventually surgery. The patient denies any history of diabetes or smoking, which are risk factors for surgical complications such as infection and poor wound healing. She is advised to maintain mobility and a healthy diet post-surgery to promote healing and reduce the risk of complications. - Cardiovascular: Denies heart problems. - Respiratory: Denies lung problems. - Neurological: Reports tremor in the neck; denies tremor in the hands. - Endocrine: Denies diabetes. - General: Denies smoking history. Attestation: Documentation on this patient encounter was supported using ambient scribe technology/ voice AI technology. The patient consented to recording for the purpose of documenting the encounter. Provider reviewed content of the generated note prior to signature. 07/28/24: DINORA SPAULDING is a 74 year old F here today for cervical spine MRI review. Patient states she has been having more numbness in the posterior and medial aspects of both legs. She states the numbness in the medial thigh is only above the knee but the numbness in the back of the leg goes all the way down to her feet. She denies any recent injections or treatment. She notes that her feet bother her the most because of the numbness and burning pain. 07/08/2024: DINORA SPAULDING is a 74 year old F here today for lumbar spine pain. She complains of low back pain that is equal bilaterally. She reports weakness in her left leg that has progressively gotten worse. She also reports increased numbness and tingling into her left leg mostly below her knee. She feels like constant pins and needles from her knee down to her foot. She states it feels as though it is asleep all the time. She has noticed that her balance is off recently. She cannot lift her left leg up when she walks and she often trips but does not fall. She states she has a difficult time lifting her left leg up to get out of the car or do stairs. She has a hard time walking long distances and has to lean on the cart. She did complete PT last year which she reports was minimally helpful. Pt does ride an exercise bike at home which she does 5 miles per day on. She would like to discuss her options at this point. She does not have issues writing, texting or holding objects. She states the low back and leg pain are worse at night when she lays down and tries to sleep. She does not have diabetes, heart or lung issues. She has not had a stroke and does not take blood thinners. 10/02/23: DINORA SPAULDING is a 73 year old F here today for lumbar spine MRI review. She had a Decompression laminectomy L4-5 on 01/12/2020 which was helpful for about a year. Pt. advises she has been going to PT 2 x weekly and states is having increased low back pain and is now experiencing pain in her right leg as well as her left. No new back injections but says that she has had several in the past with minimal benefit. She also c/o numbness and tingling in her BLE. The pain is located on the L leg towards the big and lateral calf. Same distribution in the R leg but to a lesser extent. Pain improves with sitting and leaning forward. Ortho Exam General General: Yes no acute distress Neurologic: Yes alert Psychologic: Yes reasonable and appropriate Spine SPINE TESTING CERVICAL THORACIC LUMBAR Musculoskeletal Strength 0=absent - 5=normal Details: Exam to the back shows midline paraspinal tenderness in lower lumbar spine. Neurologic evaluation of lower extremity shows 5 x 5 power normal shows normal sensations in all dermatomes. There is no hyperreflexia lower extremities. Upper extremities also show 5 x 5 strength. August's positive on the left. Romberg's is positive. Tandem gait shows severe imbalance which is worsened since last time I saw her. Exam Narrative Exam to the back shows midline paraspinal tenderness in lower lumbar spine. Neurologic evaluation of lower extremity shows 5 x 5 power normal shows normal sensations in all dermatomes. There is no hyperreflexia lower extremities. Upper extremities also show 5 x 5 strength. August's positive on the left. Romberg's is positive. Tandem gait shows severe imbalance which is worsened since last time I saw her. 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 Scoliosis type: other secondary scoliosis Spinal stenosis of lumbar region with neurogenic claudication M48.062 Spondylolisthesis, lumbar region M43.16 History of laminectomy Z98.890 Time Spent (min) 35 Assessment and Plan Assessment and Plan (1) Cervical myelopathy: Status: Acute (2) Lumbar scoliosis: Status: Acute Qualifiers: Scoliosis type: other secondary scoliosis Qualified Code(s): M41.56 - Other secondary scoliosis, lumbar region (3) Spinal stenosis of lumbar region with neurogenic claudication: Status: Acute (4) Spondylolisthesis, lumbar region: Status: Acute (5) History of laminectomy: Status: Acute Plan Again reviewed previous lumbar imaging as well as recently done cervical imaging. lumbar degenerative scoliosis in the lower lumbar spine with concavity to the right. There is postsurgical changes of laminectomy at L4-5. L3 shows significant vertebral body sclerosis on the lateral views. Flexion-extension views show subtle L3-4 spondylolisthesis without dynamic instability. MRI shows postsurgical changes of laminectomy, severe L3-4 central and foraminal stenosis, bilateral L4-5 foraminal stenosis, left L5-S1 lateral recess stenosis, L2-3 moderate stenosis. Cervical spine shows multilevel cervical disc degeneration with C3-5 severe stenosis with cord compression without cord signal changes. Moderate central stenosis C5-6 also noticed. Flexion-extension views show mild instability at C3-4 and C4-5 but no significant movement at C5-6. 1. Essential tremor - The patient reports a tremor in her neck, although it is not confirmed by her primary care physician. - Her family history includes her father having essential tremor, which required medication and surgery. - The plan is to monitor the tremor and consider further evaluation if symptoms worsen. 2. Post-surgical recovery - The patient will undergo cervical spine surgery involving C3-5 vertebrae. - Post-operatively, she will have a collar and a drain, with plans for x-rays and discharge the following day if stable. - She is advised to maintain mobility and a healthy diet to promote healing and reduce complications. - Follow-up appointments are scheduled to monitor recovery and adjust the collar as needed. - Stop taking fish oil at least one week before surgery. - Maintain mobility and a healthy diet post-surgery to promote healing. - Use a recliner or wedge pillows to sleep in an elevated position during the first week post-surgery. - Follow up with physical therapy as advised after surgery. - Avoid heavy lifting and excessive twisting for the first three months post- surgery. - Begin driving once the collar is removed, approximately two to three weeks post-surgery. Recommend C3-5 ACDF. Discussed this procedure in detail and explained the risks, benefits and alternatives. The risks of surgery include but are not limited to infection, bleeding, injury to nerves and vessels, hematoma formation, dysphagia, dysphonia, recurrent laryngeal nerve injury, Ej syndrome, DVT, pulmonary embolism, pneumonia, atelectasis, cardiopulmonary event, pseudoarthrosis, hardware failure, adjacent segment degeneration, need for further surgery, nerve root injury, spinal cord injury. Answered all questions to the patient?s satisfaction. Patient understands and agrees to proceed with surgery. Consent was signed.
--- NOTE | 2024-09-14 11:35 | OP.PCM_ITS ---
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, stenosis, cord compression with myelopathy Post-Operative Diagnosis: Same Surgery/Procedure Performed: C3-5 ACDF analysis specialist: Yes Sharepoint Designer Developer: Leeanna Dennis Tasks completed by pastoral assistant: Closing, Implanting device, Hemostasis: Electrocautery and Retracting Type of Anesthesia: General RN Documented Start/Stop Times: Operation Date: 09/14/24 08:00 Case Time Into Pre-Op 09/14/24 06:06 Out of Pre-Op 09/14/24 08:45 Anesthesia Start 09/14/24 08:51 Into Room 09/14/24 08:51 Procedure Start 09/14/24 09:19 Procedure End 09/14/24 11:09 Anesthesia End 09/14/24 11:24 Out of Room 09/14/24 11:24 Procedure Start Time: 09:19 Procedure Stop Time: 11:09 Select all DRAINS/GRAFTS/IMPLANTS that apply: Graft Graft details: Structural allograft corticocancellous strut and Implanted device Implanted device details: [employer] [place] Elite plate instrumentation Estimated Blood Loss: 30 cc Specimen collected: No Description of surgery: Preoperative diagnosis: C3-5 disc degeneration with stenosis, cord compression, myelopathy Postoperative diagnosis: Same Name of procedure: C3-5 anterior cervical discectomy and fusion with plate instrumentation - Anterior cervical fusion C3-4, CPT code 34020 - Anterior plate instrumentation C3-5, CPT code 96018/59 - Anterior cervical fusion C4-5, CPT code 12158/51 -C3-4 structural allograft bone with DBX, CPT code 54973 - C4-5 structural allograft bone with DBX, CPT code 54717 Attending surgeon: Graham Valdivia M.D. Anesthesia: Gen. endotracheal Estimated blood loss: 30 mL Complications: None Instrumentation used: [employer]tr[employer] [place] Elite plate, LASR corticocancellous block Indications: The patient is a pleasant 74-year-old lady who presented with progressively worsening dexterity and balance. MRI showed C3-5 disc degeneration with cord compression and cord signal changes. In order to halt the progression of myelopathy, the patient requested surgical treatment. All risks and benefits of the procedure were explained to the patient. The risks include but are not limited to infection, bleeding, injury to nerves and vessels , vertebral artery injury, spinal cord injury, paralysis, vocal cord paralysis, injury to esophagus, pseudoarthrosis, need for further procedures, adjacent segment degeneration. Procedure: The patient was identified in the preoperative suite using unique patient identifiers. Skin was marked consent was taken and all questions were answered. The patient was then brought back to the operative room and a timeout was performed. General endotracheal anesthesia was given. Intraoperative neuro monitoring leads were applied. The patient was carefully positioned supine on a regular OR table. A lateral view with a C-arm was done to identify the level and to define the incision. The anterior neck was then prepped and draped in the usual fashion. A final timeout was then performed. A transverse skin incision was taken to the left of midline. Subcutaneous tissue was then divided with Bovie. Platysma was identified and cut along the incision with scissors. The fascial interval between the sternocleidomastoid and the larynx was developed. Omohyoid was identified and retracted. The esophagus with the larynx was retracted medially to reach the prevertebral fascia. Marker x-ray was performed with bent spinal needle and disc space and levels were confirmed. Longus coli muscle was elevated on both sides at and above and below C3-5 discs. Self-retaining retractors were then placed. A long handle knife was then used to perform annulotomy at C3-4. Disc fragments were removed with the pituitary. [place] pins were placed in C3 and C4 for disc distraction. Curettes and bur was utilized to remove cartilage from the endplates. Discectomy was performed laterally up to the uncovertebral joints. Posterior osteophytes were thinned down with the bur and adequate decompression in the central and foraminal areas were performed and PLL was thinned out. Once the disc space was prepared, trials of various sizes were utilized. Thorough irrigation was given. 7 mm LASR cortical cancellous allograft bone large footprint was then fashioned in such a way that concavities were burred out inferiorly and superiorly and half cc of DBX (demineralized bone matrix) was squeezed into the cancellous portion. The graft was then inserted into the C3-4 disc space. The retractors were then repositioned and the procedure was repeated for C4-5 disc with complete discectomy. Graft size was 6 mm at with large footprint at C4-5. The grafts were found to be in good apposition with good pullout strength. A 42 mm [employer]tr[employer] [place] Elite plate was then fixed to C3-5 with 16 mm screws. A lateral x-ray was then taken to check the length of the screws. Both AP and lateral x-rays showed good positioning of plate and screws. The locking mechanism over the screw heads was then turned. Thorough irrigation was again given. Hemostasis was achieved. A Lachine drain was then inserted. Closure was done with 3-0 Vicryl for the platysma and subcutaneous tissue layers and 4-0 Monocryl for the skin. Closure was done around the drain. Steri-Strips were applied and dressing was done with 4 x 4 gauze and Tegaderm. A cervical collar was then applied. The patient was then woken up from anesthesia extubated and taken to PACU in stable condition. From here, the patient will be transitioned to the floor. Intraoperative neuro monitoring was performed throughout this procedure. Motor evoked potentials were run periodically. All potentials remained at baseline throughout the procedure. I was present for the entire surgery and performed the surgery myself. Machine Candle Molder Leeanna Dennis PA-C. My physician environmental emergencies assistant was a vital part of this case. They were important in appropriate retraction during the case, and protection of soft tissues during the procedure. Their intimate knowledge of the case and my steps aided in safe and expedient completion of the procedure as well as appropriate position of the patient during the surgery. They were also vital in assisting with closure under my direct supervision. Surgical Findings: See operative note Complications Complications: No
--- NOTE | 2024-09-14 11:39 | PCM.POST.ANE ---
Anesthesia: Postop Eval I Current Vital Signs Temperature: 97.5 F Pulse Rate: 68 Blood Pressure: 143/76 Respiratory Rate: 16 Pulse Ox: 99 Oxygen Delivery Method: Simple Mask Oxygen Flow Rate (L/min): 6 Assessment Airway patent: Yes Spontaneous unlabored respirations: Yes Mental status: Asleep nausea: No Vomiting: No Anesthesia Complication: No Fluid Hydration Crystalloid volume administer (ml): 600 Total IV fluid infused: 600 Progress Note Post-operative progress note: oral airway in place Anesthesia document: Postop Eval 1 completed: Yes
--- NOTE | 2024-09-14 14:11 | PCM.CONS.GEN ---
Assessment & Plan Assessment/Plan (1) Status post cervical spinal fusion: PLAN: Plan Patient is a 74-year-old female who presented to [facility] on 09/14/2024 for planned cervical spine fusion procedure. Medicine consulted postoperatively for medical management. 1. 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 Orthopedic surgery primary. S/p C3-[address] Valdivia on 09/14. Tolerated procedure well, no intraoperative complications noted. Postoperative pain control, DVT prophylaxis and further management per orthopedics. Follow-up a.m. CBC and BMP. 2. Hypertension/hyperlipidemia ? Normotensive postoperatively. Can resume home atenolol and hydrochlorothiazide tomorrow. Continue home statin. 3. GERD ? Continue home PPI. DVT prophylaxis: Per orthopedics Total clinical time spent by myself addressing the patient's medical issues, reviewing all the data, and collaborating with patient's care team: 35 minutes. HPI Consult Data Date of Consult: 09/14/24 HPI Narrative Reason for Consultation: Postoperative medical management HPI Narrative: DINORA SPAULDING, is a 74 F who presented to [facility] on 09/14/2024 for planned orthopedic procedure. Medicine consulted postoperatively for medical management. Patient had C3-5 spinal fusion procedure done with Dr. Valdivia today. Tolerated procedure well, no intraoperative complications noted. I saw the patient at bedside this afternoon postoperatively, was present. Patient was sitting up in bed and had c-collar in place. She reported feeling somewhat anxious and jumpy currently, which I noted is likely due to the steroids she is getting for swelling. She denied any specific pain or discomfort currently. No other acute concerns at this time. [facility] Medical History Wears glasses Arthritis High cholesterol Gastric reflux Non-smoker History of pain when walking History of stress test Cataract Hyperlipidemia HTN (hypertension) Home Medications ?Medication ?Instructions ?Recorded ?Last Taken ?Type atenolol 25 mg tablet 25 mg PO DAILY 11/21/19 09/14/24 History glucosamine 500 mg-msm 100 mg-vit 1 cap PO DAILY 11/21/19 09/13/24 History C 20 pj-qygdj-wdrc-primrose capsule hydrochlorothiazide 25 mg tablet 25 mg PO DAILY 11/21/19 09/13/24 History lovastatin 20 mg tablet 20 mg PO QHS 11/21/19 09/13/24 History multivitamin (Multiple Vitamins 1 tab PO DAILY 11/21/19 09/13/24 History tablet) omega 3-fgi-mrz-fish oil 1,000 mg 1 cap PO DAILY 11/21/19 08/31/24 History (120 mg-180 mg) capsule (Fish Oil) turmeric root extract 500 mg 500 mg PO DAILY 11/21/19 09/13/24 History capsule omeprazole 20 mg capsule,delayed 20 mg PO .QOD 07/08/24 09/14/24 History release Allergy/AdvReac Type Severity Reaction Status Date / Time Penicillins Allergy Hives Verified 09/14/24 06:38 Family History Mother Cancer Father Heart problem Surgical History H/O removal of cyst History of lumbar laminectomy H/O: hysterectomy Social History household members: spouse housing: house Smoking Status: Never smoker alcohol intake: never what type of physical activity do you participate in: none do you feel safe at home: Yes ROS Constitutional Constitutional: Denies chills, fatigue, fever(s) or weakness Eyes Eyes: Denies change in vision Cardiovascular Cardiovascular: Denies chest pain Respiratory/Chest Respiratory/Chest: Denies shortness of breath at rest Gastrointestinal Gastrointestinal: Denies abdominal pain Musculoskeletal Musculoskeletal: Denies arthralgias, myalgias or neck pain Neurologic Neurologic: Denies dizziness, focal weakness or headache(s) Psychiatric Psychiatric: Reports anxiety Physical Exam Const alert, oriented x3 and no apparent distress Constitutional Narrative: Elderly female, class I obesity, mildly anxious appearing, otherwise sitting up in bed with cervical collar on, conversing normally, in no acute distress. General Appearance: cooperative and comfortable HEENT normocephalic, head/scalp atraumatic, hearing grossly normal bilaterally, nasal mucous membranes and turbinates normal and moist oral mucous membranes Eyes PERRL, EOMs intact bilaterally and conjunctivae normal Neck Neck Narrative: C-collar in place. Chest inspection of chest normal Resp normal respiratory effort, normal air movement, no use of accessory muscles and clear to auscultation bilaterally Cardio regular rate, regular rhythm, no murmurs and peripheral pulses 2+ throughout GI normal to inspection, nondistended, normoactive bowel sounds, soft to palpation, non-tender and non-distended Back/Spine normal ROM Extremity normal to inspection and no pedal edema Skin no rashes or lesions noted Neuro moves all extremities, no focal motor deficits and no sensory deficits noted Psych mental status grossly normal Mood & Affect: anxious Lab / Micro Data 09/01/24 09:38 09/01/24 09:38 Labs: Laboratory Results - last 24 hr 09/14/24 06:39: POC Glucose 111 H Imaging Radiology Impression Cervical Spine X-Ray 09/14/24 07:00 IMPRESSION: Fluoroscopic guidance was used intraoperatively. Please refer to the operative note for further details. Reading Location: [facility] Charges/Coding Visit Charges Inpatient E&M: 89653 Subs Hosp L2
--- NOTE | 2024-09-14 16:08 | POSTOPAN2_ITS ---
Anesthesia Postop Eval I Sum Postop Eval Completion status Anesthesia document: Postop Eval 1 completed: Yes Anesthesia Postop Eval I Summary Anesthesia Postop Eval I Summary: Anesthesia Postop Eval I: Assessment Summary Airway patent Yes 09/14/24 11:40 SUPERVISOR PRESS [email or web address] Spontaneous unlabored Yes 09/14/24 11:40 SUPERVISOR PRESS ROOMMARTINA respirations Mental status Asleep 09/14/24 11:40 SUPERVISOR PRESS ROOM.JOSE nausea No 09/14/24 11:40 SUPERVISOR PR[employer] ROOM.JOSE Vomiting No 09/14/24 11:40 SUPERVISOR PRESS ROOM.JOSE Anesthesia Postop Eval I: Fluid Summary Crystalloid volume administer 600 09/14/24 11:40 SUPERVISOR PRESS [email or web address] (ml) Colloids volume administered ( ml) Blood Product volume administered (ml) Total IV fluid infused 600 09/14/24 11:40 SUPERVISOR PRESS ROOMMARTINA Anesthesia Postop Eval I: Summary Notes Anesthesia Complication No 09/14/24 11:40 GALILEA Anesthesia Complication Comment: Post-operative progress note oral airway in 09/14/24 11:[address] Anesthesia: Postop Eval II Evaluation Mental status: Awake and Calm Pain Level: 3 nausea: No Vomiting: No Complications Anesthesia Complication: No
--- NOTE | 2024-09-14 16:08 | PCM.POSTANE2 ---
Anesthesia Postop Eval I Sum Postop Eval Completion status Anesthesia document: Postop Eval 1 completed: Yes Anesthesia Postop Eval I Summary Anesthesia Postop Eval I Summary: Anesthesia Postop Eval I: Assessment Summary Airway patent Yes 09/14/24 11:40 HALF SECTION [email or web address] Spontaneous unlabored Yes 09/14/24 11:40 HALF SECTION IRONERMARTINA respirations Mental status Asleep 09/14/24 11:40 HALF SECTION [email or web address].JOSE nausea No 09/14/24 11:40 HALF SECTION [email or web address].JOSE Vomiting No 09/14/24 11:40 HALF SECTION [email or web address].JOSE Anesthesia Postop Eval I: Fluid Summary Crystalloid volume administer 600 09/14/24 11:40 HALF SECTION [email or web address] (ml) Colloids volume administered ( ml) Blood Product volume administered (ml) Total IV fluid infused 600 09/14/24 11:40 HALF SECTION IRONERMARTINA Anesthesia Postop Eval I: Summary Notes Anesthesia Complication No 09/14/24 11:40 GALILEA Anesthesia Complication Comment: Post-operative progress note oral airway in 09/14/24 11:[address] Anesthesia: Postop Eval II Evaluation Mental status: Awake and Calm Pain Level: 3 nausea: No Vomiting: No Complications Anesthesia Complication: No
[2024-09-14] MEDS: Clindamycin 900 MG/50 ML BAG 75 MG IV (16:54)
[2024-09-14] MEDS: 0.9% Normal Saline (250mL Bag) 250 ML 15 ML IV (16:55)
[2024-09-14] MEDS: Senna/Docusate Sodium 1 Tablet 2 TABLET PO (22:22)
[2024-09-15 00:50] VITALS: O2SAT 89
[2024-09-15] MEDS: Clindamycin 900 MG/50 ML BAG 75 MG IV (00:52)
[2024-09-15 00:58] VITALS: BP 135/67; PULSE 84; RESP 16; TEMP 36.7; O2SAT 93
[2024-09-15] MEDS: HYDROcodone Bitartrate/Apap 5/325 Tablet PO (01:21)
--- NOTE | 2024-09-15 05:05 | RAD_ITS ---
PROCEDURE: CERV SPINE 2 OR 3 VIEWS 09/15/2024 REASON FOR EXAM: S/P CERVICAL FUSION TECHNIQUE: CERV SPINE 2 OR 3 VIEWS COMPARISON: 09/14/2024 FINDINGS: Status post ACDF, C3 through C5. Intact hardware. Anatomic alignment. Disc space narrowing osteophyte formation, C5 through C7. Scattered mild facet arthritis. No acute bone, soft tissue or lung apical pathology. RAD/Cerv Spine 2 or 3 Views IMPRESSION: Unremarkable postoperative appearance. Disclaimer: Reading Location: [place] [id number]
[2024-09-15 05:10] VITALS: BP 151/71; PULSE 74; RESP 16; TEMP 36.8; O2SAT 94
[2024-09-15 06:27] LABS: Hematocrit 41.7 % (37-47); Hemoglobin 14.4 g/dL (12.0-15.0); Immature Granulocytes Count 0.150 X10^3/uL (0.0-0.0); Mean Corp Hgb Conc 34.5 g/dL (32-36); Mean Corpuscular Volume 84.4 fL (81-99); Mean Platelet Vol. 9.8 fl (6.2-12.0); NRBC Flagged by Analyzer 0 % (0-5); Platelet Count 269 K/mm3 (150-450); RBC Distribution Width CV 13.5 % (11.6-14.6); RBC Distribution Width SD 41.9 fl (35.1-43.9); Red Blood Count 4.94 M/mm3 (4.2-5.4); White Blood Count 15.5 K/mm3 (4.4-11.0)
[2024-09-15 07:00] LABS: Anion Gap 14 (5-15); BUN 20 mg/dL (4-19); BUN/Creat Ratio 19.8 RATIO (10-20); Calcium,Total 9.1 mg/dL (7.6-11.0); Carbon Dioxide 20.9 mmol/L (21.0-32.0); Chloride 101 mmol/L (98-108); Estimated Creatinine Clearance 45.23 ml/min (50-250); Glucose 157 mg/dL (70-99); Potassium 3.9 mmol/L (3.3-5.1)
[2024-09-15] MEDS: Senna/Docusate Sodium 1 Tablet 2 TABLET PO (09:05)
[2024-09-15 09:15] VITALS: BP 134/71; PULSE 71; RESP 17; TEMP 36.5; O2SAT 93
--- NOTE | 2024-09-15 10:03 | PN.HOSP_ITS ---
Subjective Subjective Feeling well. No new complaints. Slept well. Feels leg strength improved. Objective Data Objective Data Vital Signs: Vital Signs Temp Pulse Resp BP Pulse Ox O2 Del Method O2 Flow Rate 36.5 C L 71 17 134/71 H 93 Room Air 2 09/15/24 09:15 09/15/24 09:15 09/15/24 09:15 09/15/24 09:15 09/15/24 09:15 09/15/24 09:15 09/15/24 00:58 Oxygen Flow Rate (L/min) 2 Oxygen Delivery Method Room Air Weight: 76 kg Body Mass Index (BMI) 30.6 Intake & Output: Intake and Output for Last 24 Hours 09/13/24 09/14/24 09/15/24 23:59 23:59 23:59 Intake Total 1290.25 / 1290.25 250 / 250 Output Total 30 / 30 Balance 1260.25 / 1260.25 250 / 250 Lab / Micro Data 09/15/24 05:50 09/15/24 05:50 Labs: Laboratory Results - last 24 hr 09/15/24 05:50: WBC 15.5 H, RBC 4.94, Hgb 14.4, Hct 41.7, MCV 84.4, MCH 29.1, MCHC 34.5, RDW Std Deviation 41.9, RDW Coeff of Ronn 13.5, Plt Count 269, MPV 9.8, Immature Gran % (Auto) 1.000 H, Neut % (Auto) 91.0 H, Lymph % (Auto) 5.5 L, Dawes % (Auto) 2.4, Eos % (Auto) 0.0, Baso % (Auto) 0.1, Absolute Neuts (auto) 14.1 H, Absolute Lymphs (auto) 0.85, Nucleated RBC % 0, Sodium 136, Potassium 3.9, Chloride 101, Carbon Dioxide 20.9 L, Anion Gap 14, BUN 20 H, Creatinine 1.01, Estim Creat Clear Calc 45.23 L, Est GFR (MDRD) Non-Af 58 L, BUN/Creatinine Ratio 19.8, Glucose 157 H, Calcium 9.1 Micro: Microbiology 09/07/24 10:27 Swab (Method) Nasal Screen MRSA/MSSA - Final Radiography Diagnostic Testing: Radiology Impression Cervical Spine X-Ray 09/14/24 07:00 IMPRESSION: Fluoroscopic guidance was used intraoperatively. Please refer to the operative note for further details. Reading Location: [facility] Cervical Spine X-Ray 09/15/24 05:05 IMPRESSION: Unremarkable postoperative appearance. Disclaimer: Reading Location: [place] [id number] Physical Exam Const alert and no apparent distress Neck Neck Narrative: cervical collar improved. Assessment & Plan Assessment/Plan (1) Status post cervical spinal fusion: PLAN: Plan 1. 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 Orthopedic surgery primary. S/p C3-[address] Valdivia on 09/14. Tolerated procedure well, no intraoperative complications noted. Postoperative pain control, DVT prophylaxis and further management per orthopedics. Follow-up a.m. CBC and BMP. 2. Hypertension/hyperlipidemia ? Normotensive postoperatively. Can resume home atenolol and hydrochlorothiazide tomorrow. Continue home statin. 3. GERD ? Continue home PPI. DVT prophylaxis: Per orthopedics Medically stable. The hospitalist service will sign off. Call with questions/concerns. Charges/Coding Visit Charges Inpatient E&M: 52204 Subs Hosp L1
[2024-09-15] MEDS: 0.9% Saline Lock 10 ML Syringe IV (11:57)
--- NOTE | 2024-09-15 12:51 | CASEMGMT ---
MARIA DEL CARMEN MCCLENDON NOTE: Discharge order is in. Therapy eval reviewed. No additional therapy recommended. MARIA DEL CARMEN MCCLENDON to room. Pt sitting up in chair, @ bedside. Pt denies having any concerns w/discharging home. Anali STYLESN MARIA DEL CARMEN CM
--- NOTE | 2024-09-15 14:22 | PHA.DC.MR.R ---
Pharmacy [place] Med Reconciliation Pharmacy Service has performed discharge medication reconciliation for this patient. Medication education papers prepared, patient discharged when counseling was attempted. The patient's discharge medication list was reviewed for discrepancies and discrepancies were resolved. Medications at Discharge Home Medications atenolol 25 mg tablet 25 mg PO DAILY 11/21/19 glucosamine 500 mg-msm 100 mg-vit C 20 au-[id number]-fbvx-primrose capsule 1 cap PO DAILY 11/21/19 hydrochlorothiazide 25 mg tablet 25 mg PO DAILY 11/21/19 lovastatin 20 mg tablet 20 mg PO QHS 11/21/19 multivitamin (Multiple Vitamins tablet) 1 tab PO DAILY 11/21/19 omega 8-oua-sqv-fish oil 1,000 mg (120 mg-180 mg) capsule (Fish Oil) 1 cap PO DAILY 11/21/19 turmeric root extract 500 mg capsule 500 mg PO DAILY 11/21/19 omeprazole 20 mg capsule,delayed release 20 mg PO .QOD 07/08/24 hydrocodone-acetaminophen 5-325mg 5mg-325mg 1 tab PO Q6H PRN pain 7 days #28 tabs 09/15/24 meloxicam 15 mg tablet 15 mg PO DAILY #30 tabs 09/15/24 methocarbamol 500 mg tablet 500 - 750 mg (1 - 1.5 x 500 mg) PO TID PRN pain/spasms #30 tabs 09/15/24 sennosides 8.6 mg-docusate sodium 50 mg tablet (Stimulant Laxative Plus) 2 tab PO BID PRN constipation #30 tabs 09/15/24
--- NOTE | 2024-09-16 08:08 | PCM.PN.ORT ---
Subjective Subjective Patient was seen September 15, 2024. Postop day 1 C3-5 fusion. Patient is doing relatively well postoperatively with her pain well-controlled. Patient says that nursing has not yet had to change any of her dressings. Patient has been up and walking with a front wheel walker. Patient has walked with PT/OT who is cleared her for home discharge. Objective Data Objective Data Vital Signs: Vital Signs Temp Pulse Resp BP Pulse Ox O2 Del Method O2 Flow Rate 97.7 F L 71 17 134/71 H 93 Room Air 2 09/15/24 09:15 09/15/24 09:15 09/15/24 09:15 09/15/24 09:15 09/15/24 09:15 09/15/24 09:15 09/15/24 00:58 Oxygen Flow Rate (L/min) 2 Oxygen Delivery Method Room Air Weight: 167 lb 8.821 oz Body Mass Index (BMI) 30.6 Intake & Output: Intake and Output for Last 24 Hours 09/14/24 09/15/24 09/16/24 23:59 23:59 23:59 Intake Total 1290.25 / 1290.25 499.75 / 499.75 Output Total 30 / 30 Balance 1260.25 / 1260.25 499.75 / 499.75 Lab / Micro Data 09/15/24 05:50 09/15/24 05:50 Micro: Microbiology 09/07/24 10:27 Swab (Method) Nasal Screen MRSA/MSSA - Final Physical Exam Narrative Neurological examination of the upper extremity shows 5X5 power. Normal sensation across all dermatomes. Drain removed. Tegaderm and gauze applied over the incision. Collar was adjusted to fit the patient snugly. Const alert, oriented x3 and no apparent distress Assessment & Plan Assessment/Plan (1) Status post cervical spinal fusion: PLAN: Plan Postop day 1 C3-5 fusion. Obtained and reviewed x-rays today which show hardware and bone graft in good position. PT/OT cleared for home discharge. Drain was removed. Reviewed proper wear of the cervical collar. Reviewed and educated on the use of the incentive spirometer. Reviewed restrictions of no bending, lifting, twisting. Home meds include [place], meloxicam, methocarbamol, senna. OARRS reviewed. She will follow-up in the clinic in 2 weeks. Patient is in agreement.
== END 2024-09-15 13:29 | disposition home or self-care (01) ==
LOC: SDC 11:52 → MS3 11:52
PROVIDERS: Student in an Organized Health Care Education/Training Program; Admitting Provider Orthopaedic Surgery Orthopaedic Surgery of the Spine; PCP Family Medicine; Referring Provider Orthopaedic Surgery Orthopaedic Surgery of the Spine; Visit Provider Orthopaedic Surgery Orthopaedic Surgery of the Spine
PROC: (CPT 22551; principal; 2024-09-14 07:30)
DX: M50.01 Cervical disc disorder with myelopathy, high cervical region (principal); M50.021 Cervical disc disorder at C4-C5 level with myelopathy; I10 Essential (primary) hypertension; G25.0 Essential tremor; E78.00 Pure hypercholesterolemia, unspecified; K21.9 Gastro-esophageal reflux disease without esophagitis; M43.16 Spondylolisthesis, lumbar region; M48.062 Spinal stenosis, lumbar region with neurogenic claudication; M41.86 Other forms of scoliosis, lumbar region; Z79.899 Other long term (current) drug therapy
CPT/HCPCS: 22551; 22845; 22552; 20931; 00670; 36415; 72040; 76000; 80048; 82962; 83036; 83735; 85025; 86708; 86850; 86900; 86901; 87081; 87536; 93005; 94668; 96365; 96366; 96375; 96376; 97162; 99221; A4648; C1713; A4216; G0378; J2405; J3475

== ENCOUNTER 2024-09-18 09:07 | Emergency (ER) | payer MEDICARE, BC, SELFPAY ==
[2024-09-18 09:07] VITALS: BP 178/96; BP 205/86; PULSE 76; RESP 14; TEMP 36.3; O2SAT 98; BMI 31.2
--- OUTSIDE RECORDS SUMMARY | 2024-09-18 09:39 | XMS RPT_ITS | CCD ---
Author Organization [facility] Care Team Providers Care Field Geologist Name Role Phone Moose Dempsey MD Unavailable Moose Dempsey MD Unavailable [facility] Unavailable Jeffery SAAVEDRA, Dr. Ramsey Unavailable [phone] Mamadou Hu DO Unavailable Merlyn Cho Unavailable [facility] Unavailable [facility] Unavailable Dr. Melody West MD Unavailable Dr. Fidencio Bird MD Unavailable [facility] Unavailable [phone] Sourav SAAVEDRA, Michelle Downing Unavailable Bill UTILITY INSPECTOR, Glenna Unavailable Jeffery JOYCE, Tami Unavailable Yashira JOYCE, Anna Marie Haro Unavailable Unavail able Richert UTILITY INSPECTOR, Charisma L Unavailable Unavailab le Vess UTILITY INSPECTOR, Neilee L Unavailable Unavailable Lyndsey UTILITY INSPECTOR, Michelle M Unavailable Unavailab le Tamar UTILITY INSPECTOR, Sydnie Smith Unavailable Unavailab le Yashira, Gayle C Unavailable Unavailable Wengerd UTILITY INSPECTOR, Key Unavailable Unavailasim Vasquez RN, Chrissie Herndon Unavailable Unavaila ble Mutersbaugh UTILITY INSPECTOR, Ligia K Unavailable Unavai lable Hugo UTILITY INSPECTOR, Valerie Unavailable Unavailable Zaugg UTILITY INSPECTOR, Ina Unavailable Unavailable Marthey UTILITY INSPECTOR, Tatyana Unavailable Unavailable Gabriela PACKAGE LINE OPERATOR, Esme Unavailable Unavailable Rodolfo BRAR, Valerie Unavailable Unavailable Tomy UTILITY INSPECTOR, Manny Unavailable Unavailable Unavailable Unavailable Pelon SAAVEDRA, Dr. Nicolas Unavailable Skip SAAVEDRA, Dr. Stevenson Unavailable Delmer BRAR, Lydia Unavailable Unavailable VALDIVIA, GUERRERO A Admitting Unavailable [...] UNKNOWN Consulting Unavailable PROVIDER, UNKNOWN Consulting Unavailable BROWN, MOOSE Admitting Unavailable BROWN, MOOSE Attending Unavailable BROWN, MOOSE Primary Care Unavailable BROWN, MOOSE Consulting Unavailable PROVIDER, UNKNOWN Consulting Unavailable PROVIDER, UNKNOWN Consulting Unavailable PROVIDER, UNKNOWN Consulting Unavailable Estevan SAAVEDRA, Dr. Virk Primary Care Provider Estevan SAAVEDRA, Dr. Virk Referring Provider Dr. Guerrero Valdivia MD Attending Provider Skip SAAVEDRA, Dr. Stevenson Referring Provider Myranda SAAVEDRA, Dr. Eldridge Attending Provider Skip SAAVEDRA, Dr. Stevenson Other Provider Skip SAAVEDRA, Dr. Stevenson Admit Provider Dr. Piotr Flowers DO Other Provider Dr. Carlos Curry DO Attending Provider Dr. Carlos Curry DO Other Provider Dr. Piotr Flowers DO Attending Provider Valdivia, Guerrero Attending Unavailable Brown, Moose Referring Unavailable Brown, Moose Primary Care Unavailable Valdivia, Guerrero Attending Unavailable Brown, Moose Primary Care Unavailable Brown, Moose Referring Unavailable Brown, Omose Primary Care Unavailable Chente Whitmore Attending Unavailable Valdivia, Guerrero Attending Unavailable Brown, Moose Primary Care Unavailable Brown, Moose Referring Unavailable Brown, Moose Referring Unavailable Brown, Moose Primary Care Unavailable Valdivia, Guerrero Attending Unavailable Valdivia, Guerrero Admitting Unavailable Valdivia, Guerrero Referring Unavailable Brown, Moose Primary Care Unavailable Carlos Curry Attending Unavailable Carlos Curry Consulting Unavailable Valdivia, Guerrero Consulting Unavailable Valdivia, Guerrero Attending Unavailable Valdivia, Guerrero Admitting Unavailable Valdivia, Guerrero Referring Unavailable Brown, Moose Primary Care Unavailable Jopperi, Piotr Consulting Unavailable Guerrero Valdivia Referring Unavailable Guerrero Valdivia Attending Unavailable [facility] Unavailable Skip, Guerrero Attending Unavailable Skip, Guerrero Referring Unavailable [facility] Unavailable Piotr Flowers Consulting Unavailable Piotr Flowers Attending Unavailable Skip, Guerrero Attending Unavailable Guerrero Valdivia Consulting Unavailable Valdivia, Guerrero Referring Unavailable [facility] Unavailable Allergies Allergy Classification Reported Allergen(s) Allergy Type Date of Onset Reaction(s) Facility (20 sources) [facility] ([facility] source) Penicillin Drug Allergy [facility] (5 sources) Penicillins Allergy to substance 07-08-2024 [facility] [place] (1 source) Penicillins Drug allergy (disorder) 09-14-2024 [facility] Repository Medications Current Medications Medication Drug Class(es) Dates Sig (Normalized) Sig (Original) acetaminophen 325 mg / HYDROcodone bitartrate 5 mg oral tablet (1 source) Opioid Agonist Start: 09-15-2024 take 1 tablet by mouth every six hours as needed for pain Hydrocodone-Acetam inophen 5-325 mg Tablet Active 1 {tbl} PO EVERY 6 HOURS as needed for pain 28 7 0 September 15, 2024 Status post cervical spinal arthrodesis Arthrodesis status Start: 09-15-2024 take 1 tablet by leidy th every six hours as needed for pain Hydrocodone-Acetaminophen 5-325 mg Table t Active 1 {tbl} PO EVERY 6 HOURS as needed for pain 28 7 0 September 15, 2024 Status post cervical spinal arthrodesis Arthrodesis status atenolol 25 mg oral tablet (20 sources) beta-Adrenergic Jd Start: 11-21-2019 take 1 tablet by mouth once daily Atenolol 25 mg tablet Active 25 mg PO DAILY November 21, 2019 12:00am Comment on above: Mail order. docusate sodium 50 mg / sennosides, long term 8.6 mg oral tablet (1 source) Start: 09-15-2024 Sennosides-Docusate Sodium (Stimulant Laxative Plus) 8.6-50 mg Tablet Active 2 {tbl} PO TWICE A DAY as needed for constipation 30 0 September 15, 2024 10:51am Fish Oils (20 sources) Fish Oil Nekjx-Xid-P-[place]- Leslie [id number] mg capsule (5 sources) Start: 11-21-2019 Phamq-Qpa-Y-[place] -Leslie [id number] mg capsule Active 1 NMA PO DAILY November 21, 2019 12:00am Glucosamine Complex (20 sources) Glucosamine Comp ying hydroCHLOROthiazide 25 mg oral tablet (20 sources) Thiazide Diuretic Start: 04-26-2024 hydroCHLOROthiazide 25 mg tablet ; 1 Tablet daily for 0 days Quantity: 90 {Tablet} Refills: 3 Ordered: 26-Apr-2024 MD Moose Dempsey Start: 26-Apr-2024 Comments: Mail order. Start: 01-15-2024 hydroCHLOROthi azide 25 mg tablet ; 1 Tablet daily for 0 days Quantity: 90 {Tablet} Refills: 0 Ordered: 15-Jan-2024 MD Moose Dempsey Start: 15-Jan-2024 Comments: Mail order. Start: 11-21-2019 take 1 tablet by leidy once daily Hydrochlorothiazide 25 mg tablet Active 25 mg PO DAILY November 21, 2019 12:00am Comment on above: Mail order. lovastatin 20 mg oral tablet (20 sources) HMG-CoA Reductase Inhibitor Start: 11-21-19 take 1 tablet by mouth at bedtime Lovastatin 20 mg tablet Active 20 mg PO AT BEDTIME November 21, 2019 12:00am Comment on above: Mail order. meloxicam 15 mg oral tablet (1 source) Nonsteroidal Anti-inflammatory Drug Start: 09-16-19 take 1 tablet by mouth once daily Meloxicam 15 mg Tablet Active 15 mg PO DAILY September 15, 2024 12:00am take once a day methocarbamol 500 mg oral tablet (1 source) Muscle Relaxant Start: 09-16-19 take 500-750 mg by mouth three times daily as needed for pain Methocarbamol 500 mg Tablet Active 500 - 750 mg PO THREE TIMES A DAY as needed for pain/spasms September 15, 2024 10:50am Multivitamin (Multiple Vitamins) tablet (5 sources) Start: 11-21-19 Multivitamin (Multiple Vitamins) tablet Active 1 {tbl} PO DAILY November 21, 2019 12:00am omega-3 acid ethyl esters (long term) 1000 mg oral capsule (5 sources) Start: 11-21-19 Grady 8-Axr-Kav-Fish Oil (Fish Oil) 1,000 mg (120 mg-180 mg) capsule Active 1 NMA PO DAILY November 21, 2019 12:00am omeprazole 20 mg delayed release oral capsule (20 sources) Proton Pump Inhibitor Start: 07-09-19 take 1 capsule by mouth every other [...] {Capsule} Refills: 0 Ordered: 01-Aug-2019 MD Moose Dempsey Start: 01-Aug-2019 End: 31-Aug-2019 Status: Inactive Turmeric Root Extract (5 sources) Start: 11-21-2019 take 1 capsule by [...] Inactive azelastine hydrochloride 0.5 mg/ml ophthalmic solution (20 sources) Histamine-1 Receptor Antagonist End: 08-30-2024 azelastine [...] oral capsule (20 sources) Cephalosporin Antibacterial Start: End: take 1 capsule by mouth three times daily Cephalexin 500 MG Oral Capsule ; 1 Capsule three times daily for 10 days Quantity: 30 {Capsule} Refills: 0 Ordered: 08-Jan-2016 MD Moose Dempsey Start: 22-Dec-2015 End: 01-Jan-2016 Status: Inactive gabapentin 300 mg oral capsule (20 sources) Anti-epileptic Agent Start: End: take 1 capsule by mouth three [...] oral tablet (20 sources) Start: 023 End: predniSONE 20 mg tablet ; 1 (one) [...] cream (20 sources) Corticosteroid Start: 014 End: TRIAMCINOLONE ACETONIDE, 0.1% (External Cream) ; AAA [...] [Polyosteoarthritis, 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-2023 Chronic Other acquired deformities (13 sources) Scoliosis of lumbar spine; Translations: [Scoliosis, unspecified] 07-08-2024 Chronic Other acquired deformities (13 sources) Lumbar spondylolisthesis; Translations: [Spondylolisthesis, lumbar region] 07-08-2024 Episodic Other aftercare (20 sources) High risk drug monitoring status; Translations: [Other residential (current) drug therapy] 01-02-2015 Episodic Other congenital anomalies (5 sources) Osteosclerosis; 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 Chronic Other [...] Pain in lower limb 08-10-2023 Episodic Other connective tissue disease (2 sources) History of cervical spine fusion; Translations: [Arthrodesis status] 09-14-2024 Episodic Other connective tissue disease (2 sources) Arthrodesis status; Translations: [Arthrodesis status] Onset: 09-15-2024 Episodic Other ear and sense organ disorders [...] limbs] 04-28-2023 Chronic Other nervous system disorders (13 sources) Cervical myelopathy; Translations: [Disease of spinal [...] [Insomnia, 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-2023 Episodic Residual codes; unclassified (13 sources) Other specified postprocedural states; Translations: [History of laminectomy] 07-08-2024 Episodic Spondylosis; intervertebral disc disorders; other back problems (20 sources) Degeneration of lumbar intervertebral disc; Translations: [Other intervertebral disc degeneration, lumbar region] 09-16-2012 Chronic Spondylosis; intervertebral disc disorders; other back problems (20 sources) Lumbar radiculopathy; Translations: [Radiculopathy, lumbar region] Onset: 12-01-2023 02-02-2023 Episodic Unclassified (20 sources) Number of [...] for Multiple chronic conditions follow-up: reviewed by [facility] 04-01-2022 Unclassified (20 sources) MCR Well Adult [...] The patient has a Healthcare Power of Filler Blender and a Living Will. Note for [facility] Well Adult: reviewed by [facility] 09-24-2021 Unclassified (20 sources) Follow Up for [...] seen in ER for vertigo. reviewed by [facility] 03-20-2021 Unclassified (20 sources) Follow Up for [...] for Multiple chronic conditions follow-up: reviewed by [facility] 09-13-2019 Unclassified (20 sources) Follow up for [...] for Multiple chronic conditions follow-up: reviewed by [facility] 08-27-2018 Unclassified (20 sources) Follow up for [...] toe pain on left foot. reviewed by [facility] 08-25-2017 Unclassified (20 sources) [facility] [place] Routine Follow up - The patient is [...] follow-up: Is not fasting today. reviewed by [facility] 07-15-2016 Unclassified (20 sources) Follow Up for [...] conditions follow-up: reviewed by [facility] 04-28-2023 Unclassified (20 sources) Follow up for multiple [...] but always return if she stops. 04-26-2024 Past or Other Problems Problem Classification Problem [...] The patient has a Healthcare Power of Filler Blender and a Living Will. Note for [facility] Well Adult: reviewed by [facility] 10-21-2022 Unclassified (20 sources) [facility] Well Adult - In general the patient [...] The patient has a Healthcare Power of Filler Blender and a Living Will. Note for [facility] Well Adult: reviewed by [facility] 09-18-2020 Unclassified (20 sources) Chest pain - [...] the burning sensation. 08-01-2019 Unclassified (20 sources) [facility] Well Adult - In general the patient [...] The patient has a Healthcare Power of Filler Blender and a Living Will. Note for [facility] Well Adult: reviewed by [facility] 03-29-2019 Unclassified (20 sources) Leg pain - [...] early on). Note for Leg pain: Since [place] she is noticing this discomfort is worsening. [...] The patient has a Healthcare Power of Filler Blender and a Living Will. Note for [facility] Well Adult: reviewed by [facility] 02-18-2017 Unclassified (20 sources) Cold Symptoms - [...] Note for Upper respiratory infection: reviewed by [facility] 12-22-2015 Unclassified (20 sources) [facility] well adult - In general the patient [...] The patient has a Healthcare Power of Filler Blender and a Living Will. 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 Also reports [...] perform monthly breast self exam. 10-28-2023 Unclassified (14 sources) Pre-operative clearance - Surgical procedure(s) planned: other (ACDF C3-5). Date of procedure: (09/14/2024) Surgeon: (Dr. Valdivia with [facility]) and Location of procedure: ([facility]) There have been no problems with general anesthesia or blood/blood products. Prosthetics include eye glasses. Note for Pre-operative clearance: Dr Valdivia is doing cervical spine surgery. 08-30-2024 Results Test Name Value Interpretation Reference Range Facility Absolute lymphocyte countOrd ered By: Leeanna Dennis on 09-15-2024 Lymphocytes Auto (Unsp spec) [#/Vol] 0.85 10*3/uL 0.83-4.51 [facility] Absolute neutrophil countOrd ered By: Leeanna Dennis on 09-15-2024 Neutrophils (Bld) [#/Vol] 14.1 10*3/uL High 2.0-7.7 [facility] Anion gap in Serum or Plasma Ordered By: Leeanna Dennis on 09-15-2024 Anion gap [Moles/Vol] 14 mmol/L 5-15 [facility] Automated lymphocyte count a s percentage of total leukocytesOrdered By: Leeanna Dennis on 09-15-2024 Lymphocytes/100 WBC Auto (Unsp spec) 5.5 % Low 19-41 [facility] BUN/creatinine ratioOrdered By: Leeanna Dennis on 09-15-2024 Urea nitrogen/Creatinine [Mass ratio] 19.8 mg/mg 10- [facility] Basic Metabolic Profile (BMP )on 09-15-2024 BUN/CRE 19.8 RATIO Normal - [facility] Comment on above: Performed By: #### L 500.2500, L100.0100 ####[facility] [address] [place], [address] ECRCL 45.23 ml/min Low 50-250 [facility] Comment on above: Performed By: #### L 500.2500, L100.0100 ####[facility] [address] [place], [address] GAP 14 Normal 5-15 [facility] Comment on above: Performed By: #### L 500.2500, L100.0100 ####[facility] [address] [place], [address] Potassium [Moles/Vol] 3.9 mmol/L Normal 3.3-5.1 [facility] Comment on above: Performed By: #### L 500.2500, L100.0100 ####[facility] [address] [place], [address] Basophil percentageOrdered B y: Leeanna Dennis on 09-15-2024 Basophils/100 WBC (Bld) 0.1 % 0-1 [facility] CBC W/Diff, Automatedon 08-30 Absolute Lymph 0.85 X10 3/uL Normal 0.83-4.51 [facility] Comment on above: Performed By: #### L 500.2500, L100.0100 ####[facility] [address] [place], [address] Absolute Neut 14.1 X10 3/uL High 2.0-7.7 [facility] Comment on above: Performed By: #### L 500.2500, L100.0100 ####[facility] [address] [place], [address] Basophils/100 WBC (Bld) 0.1 % Normal 0-1 [facility] Comment on above: Performed By: #### L 500.2500, L100.0100 ####[facility] [address] [place], [address] Eosinophils/100 WBC (Bld) 0.0 % Normal 0-5 [facility] Comment on above: Performed By: #### L 500.2500, L100.0100 ####[facility] [address] [place], [address] Erythrocyte distribution width (RBC) [Ratio] 13.5 % Normal 11.6-14.6 [facility] Comment on above: Performed By: #### L 500.2500, L100.0100 ####[facility] [address] [place], [address] Hematocrit (Bld) [Volume fraction] 41.7 % Normal 37-47 [facility] Comment on above: Performed By: #### L 500.2500, L100.0100 ####[facility] [address] [place], [address] Hemoglobin (Bld) [Mass/Vol] 14.4 g/dL Normal 12.0-15.0 [facility] Comment on above: Performed By: #### L 500.2500, L100.0100 ####[facility] [address] [place], [address] IG% 1.000 High 0.0-0.9 [facility] Comment on above: Result Comment: IG% - Immature Granulocytes (promyelocytes, myelocytes and metamyelocytes) > 1% indicates that a LEFT SHIFT is Present. Performed By: #### L 500.2500, L100.0100 ####[facility] [address] [place], [address] Lymphocytes/100 WBC (Bld) 5.5 % Low 19-41 [facility] Comment on above: Performed By: #### L 500.2500, L100.0100 ####[facility] [address] [place], [address] MCH (RBC) [Entitic mass] 29.1 pg Normal 27.0-32.0 [facility] Comment on above: Performed By: #### L 500.2500, L100.0100 ####[facility] [address] [place], [address] MCHC (RBC) [Mass/Vol] 34.5 g/dL Normal 32-36 [facility] Comment on above: Performed By: #### L 500.2500, L100.0100 ####[facility] [address] [place], [address] MCV (RBC) [Entitic vol] 84.4 fL Normal 81-99 [facility] Comment on above: Performed By: #### L 500.2500, L100.0100 ####[facility] [address] [place], [address] Monocytes/100 WBC (Bld) 2.4 % Normal 0-10 [facility] Comment on above: Performed By: #### L 500.2500, L100.0100 ####[facility] [address] [place], [address] Neutrophils/100 WBC (Bld) 91.0 % High 47-70 [facility] Comment on above: Performed By: #### L 500.2500, L100.0100 ####[facility] [address] [place], [address] Nucleated RBC (Bld) [#/Vol] 0 10*3/uL Normal 0-5 [facility] Comment on above: Performed By: #### L 500.2500, L100.0100 ####[facility] [address] [place], [address] Platelet mean volume (Bld) [Entitic vol] 9.8 fL Normal 6.2-12.0 [facility] Comment on above: Performed By: #### L 500.2500, L100.0100 ####[facility] [address] [place], [address] Platelets (Bld) [#/Vol] 269 10*3/uL Normal 150-450 [facility] Comment on above: Performed By: #### L 500.2500, L100.0100 ####[facility] [address] [place], [address] RBC (Bld) [#/Vol] 4.94 10*6/uL Normal 4.2-5.4 [facility] Comment on above: Performed By: #### L 500.2500, L100.0100 ####[facility] [address] [place], [address] RDW SD 41.9 fl Normal 35.1-43.9 [facility] Comment on above: Performed By: #### L 500.2500, L100.0100 ####[facility] [address] [place], [address] WBC (Bld) [#/Vol] 15.5 10*3/uL High 4.4-11.0 [facility] Comment on above: Performed By: #### L 500.2500, L100.0100 ####[facility] [address] [place], [address] Carbon dioxide, total [Moles /volume] in Central venous bloodOrdered By: Leeanna Dennis on 09-15-2024 CO2 [Moles/Vol] 20.9 mmol/L Low 21.0-32.0 [facility] Comment on above: Performed By: #### L 500.2500, L100.0100 ####[facility] [address] [place], [address] Cerv Spine 2 or 3 Viewson Cerv Spine 2 or 3 Views [facility] [address] [place] [address] Cerv Spine 2 or 3 Views MR#: [id number] Acct: [id number] Name: DINORA SPAULDING Rep #: [id number] : [id number] F 74 From: Adalberto Loaiza MD PCP: Dr. Moose Dempsey MD Status: ADM SALINAS Study: Cerv Spine 2 or 3 Views Date of Exam: 09/15/24 Exam# [id number] Ordering Dr: Leeanna Dennis PROCEDURE: CERV SPINE 2 OR 3 VIEWS 09/15/2024 REASON FOR EXAM: S/P CERVICAL FUSION TECHNIQUE: CERV SPINE 2 OR 3 VIEWS COMPARISON: 09/14/2024 FINDINGS: Status post ACDF, C3 through C5. Intact hardware. Anatomic alignment. Disc space narrowing osteophyte formation, C5 through C7. Scattered mild facet arthritis. No acute bone, soft tissue or lung apical pathology. RAD/Cerv Spine 2 or 3 Views IMPRESSION: Unremarkable postoperative appearance. Disclaimer: Reading Location: [place] [address] CC: ALLYSON Wright; Dr. Moose Dempsey MD Household Manager: Signed Normal [facility] Chloride assayOrdered By: Fide Dennis on 09-15-2024 Chloride [Moles/Vol] 101 mmol/L Normal 98-108 [facility] Comment on above: Performed By: #### L 500.2500, L100.0100 ####[facility] [address] [place], [place], [id number] Eosinophil percentageOrdered By: Leeanna Dennis on 09-15-2024 Eosinophils/100 WBC (Bld) 0.0 % 0-5 [facility] Erythrocyte distribution wid th ratioOrdered By: Leeanna Dennis on 09-15-2024 Erythrocyte distribution width (RBC) [Ratio] 13.5 % 11.6-14.6 [facility] Erythrocyte distribution wid th standard deviationOrdered By: Leeanna Dennis on 09-15-2024 Erythrocyte distribution width (RBC) [Ratio] 41.9 fl 35.1-43.9 [facility] Glomerular filtration rate ( GFR) estimation/1.73 sq m using serum, plasma, or whole bOrdered By: Leeanna Dennis on 09-15-2024 GFR/1.73 sq M.predicted among non-blacks MDRD (S/P/Bld) [Vol rate/Area] 58 mL/min/{1.73_m2} Low >60 [facility] Comment on above: mL/min/1.73m2 CKD-EP I Creatinine Equation (2020) Result Comment: mL/m in/1.73m2 CKD-EPI Creatinine Equation (2020) Performed By: #### L 500.2500, L100.0100 ####[facility] [address] [place], [address] Hematocrit Auto (Bld) [Volum e fraction]Ordered By: Leeanna Dennis on 09-15-2024 Hematocrit (Bld) [Volume fraction] 41.7 % 37-47 [facility] Hemoglobin measurementOrdere d By: Leeanna Dennis on 09-15-2024 Hemoglobin (Bld) [Mass/Vol] 14.4 g/dL 12.0-15.0 [facility] Immature granulocytes/100 WB C Auto (Bld)Ordered By: Leeanna Dennis on 09-15-2024 Immature granulocytes/100 WBC (Bld) 1.000 % High 0.0-0.9 [facility] Comment on above: IG% - Immature Granu locytes (promyelocytes, myelocytes and metamyelocytes) > 1% indicates that a LEFT SHIFT is Present. MCV (mean corpuscular volume ) determinationOrdered By: Leeanna Dennis on 09-15-2024 MCV (RBC) [Entitic vol] 84.4 fL 81-99 [facility] Mean corpuscular hemoglobin (MCH) determinationOrdered By: Leeannalit Dennis on 09-15-2024 MCH (RBC) [Entitic mass] 29.1 pg 27.0-32.0 [facility] Mean corpuscular hemoglobin concentration (MCHC) determinationOrdered By: Leeannalit Dennis on 09-15-2024 MCHC (RBC) [Mass/Vol] 34.5 g/dL 32-36 [facility] Mean platelet volume determi nationOrdered By: Leeanna Dennis on 09-15-2024 Platelet mean volume (Bld) [Entitic vol] 9.8 fL 6.2-12.0 [facility] Monocyte percentageOrdered B y: Leeanna Dennis on 09-15-2024 Monocytes/100 WBC (Bld) 2.4 % 0-10 [facility] Neutrophil percentageOrdered By: Leeanna Dennis on 09-15-2024 Neutrophils/100 WBC (Bld) 91.0 % High 47-70 [facility] Nucleated red blood cell per centageOrdered By: Leeanna Dennis on 09-15-2024 Nucleated RBC/100 WBC (Bld) [Ratio] 0 % 0-5 [facility] Platelet countOrdered By: Fide Dennis on 09-15-2024 Platelets (Bld) [#/Vol] 269 10*3/uL 150-450 [facility] Potassium measurement (mass/ volume)Ordered By: Leeanna Dennis on 09-15-2024 Potassium (Unsp spec) [Mass/Vol] 3.9 mmol/L 3.3-5.1 [facility] RBC Auto (Bld) [#/Vol]Ordere d By: Leeanna Dennis on 09-15-2024 RBC (Bld) [#/Vol] 4.94 10*6/uL 4.2-5.4 [facility] Serum creatinine measurement (mass/volume)Ordered By: Leeanna Dennis on 09-15-2024 Creatinine [Mass/Vol] 1.01 mg/dL Normal 0.70-1.20 [facility] Comment on above: Performed By: #### L 500.2500, L100.0100 ####[facility] [address] [facility] [place], [place], [id number] Serum glucose measurement (m ass/volume)Ordered By: Leeanna Dennis on 09-15-2024 Glucose [Mass/Vol] 157 mg/dL High 70-99 [facility] Comment on above: Performed By: #### L 500.2500, L100.0100 ####[facility] [address] [place], [address] Serum or plasma calcium adri urement (mass/volume)Ordered By: Leeanna Dennis on 09-15-2024 Calcium [Mass/Vol] 9.1 mg/dL Normal 7.6-11.0 [facility] Comment on above: Performed By: #### L 500.2500, L100.0100 ####[facility] [address] [place], [address] Serum or plasma urea nitroge n measurement (mass/volume)Ordered By: Leeanna Jeannie on 09-15-2024 Urea nitrogen [Mass/Vol] 20 mg/dL High 4-19 [facility] Comment on above: Performed By: #### L 500.2500, L100.0100 ####[facility] [address] [place], [address] Sodium levelOrdered By: Caroline Dennis on 09-15-2024 Sodium [Moles/Vol] 136 mmol/L Normal 133-145 [facility] Comment on above: Performed By: #### L 500.2500, L100.0100 ####[facility] [address] [place], [address] White blood cell (WBC) count Ordered By: Leeanna Jeannie on 09-15-2024 WBC (Bld) [#/Vol] 15.5 10*3/uL High 4.4-11.0 [facility] Bedside Glucoseon 09-14-2024 FINGERSTICK GLU 111 mg/dL High 74-106 [facility] Comment on above: Result Comment: CHRIS GEMENT OF PATIENT CARE PER NURSING PROTOCOL Performed By: #### L 501.080 ####[facility] [address] [place], [address] Cerv Spine 2 or 3 Viewson Cerv Spine 2 or 3 Views [facility] Imaging Services [address] [place] [address] Cerv Spine 2 or 3 Views MR#: [id number] Acct: [id number] Name: DINORA SPAULDING Rep #: [id number] : 1950 F 74 From: Kevin Mathur MD PCP: Dr. Moose Dempsey MD Status: [facility] Study: Cerv Spine 2 or 3 Views Date of Exam: 09/14/24 Exam# [id number] Ordering Dr: Guerrero Valdivia MD EXAM: XR Cervical Spine, 4 or 5 Views CLINICAL INDICATION: ANTERIOR CERVICAL FUSION C3-4 C4-5 TECHNIQUE: Frontal, lateral and bilateral oblique views of the cervical spine. COMPARISON: No relevant prior studies available. FINDINGS: VERTEBRAE: Unremarkable. No acute fracture. Normal alignment. DISC SPACES: No acute findings. No significant narrowing. SOFT TISSUES: Unremarkable. OTHER FINDINGS: A total 4 spot images were obtained. Total fluoroscopy time 6.5 seconds. Total radiation dose 1.34 mGy. RAD/Cerv Spine 2 or 3 Views IMPRESSION: Fluoroscopic guidance was used intraoperatively. Please refer to the operative note for further details. Reading Location: [facility] CC: Dr. Guerrero Valdivia MD; Dr. Moose Dempsey MD Household Manager: Signed Normal [facility] Consultation - Hospital[place] 09-14-2024 Consultation - Hospitalist [facility] Medical Records Department [address] [place] [address] Consultation - Hospitalist 09/14/24 1411 MR#: [id number] Acct: [id number] Name: DINORA SPAULDING Rep #: [id number] : 1950 74 From: Carlos Curry DO PCP: Dr. Moose Dempsey MD Status:ADM SALINAS Location: [facility] SD743-6 Assessment Plan Assessment/Plan (1) Status post cervical spinal fusion: PLAN: Plan Patient is a 74-year-old female who presented to [facility] on 09/14/2024 for planned cervical spine fusion procedure. Medicine consulted postoperatively for medical management. 1. 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 Orthopedic surgery primary. S/p C3-[address] Valdivia on 09/14. Tolerated procedure well, no intraoperative complications noted. Postoperative pain control, DVT prophylaxis and further management per orthopedics. Follow-up a.m. CBC and BMP. 2. Hypertension/hyperlipid emia ??? Normotensive postoperatively. Can resume home atenolol and hydrochlorothiazide tomorrow. Continue home statin. 3. GERD ??? Continue home PPI. DVT prophylaxis: Per orthopedics Total clinical time spent by myself addressing the patient's medical issues, reviewing all the data, and collaborating with patient's care team: 35 minutes. HPI Consult Data Date of Consult: 09/14/24 HPI Narrative Reason for Consultation: Postoperative medical management HPI Narrative: DINORA SPAULDING, is a 74 F who presented to [facility] on 09/14/2024 for planned orthopedic procedure. Medicine consulted postoperatively for medical management. Patient had C3-5 spinal fusion procedure done with Dr. Valdivia today. Tolerated procedure well, no intraoperative complications noted. I saw the patient at bedside this afternoon postoperatively, was present. Patient was sitting up in bed and had c-collar in place. She reported feeling somewhat anxious and jumpy currently, which I noted is likely due to the steroids she is getting for swelling. She denied any specific pain or discomfort currently. No other acute concerns at this time. COUNTS INCLUDE 234 BEDS AT THE [facility] Medical History Wears glasses Arthritis High cholesterol Gastric reflux Non-smoker History of pain when walking History of stress test Cataract Hyperlipidemia HTN (hypertension) Home Medications ???Medication ???Instructions ???Recorded ???Last Taken ???Type atenolol 25 mg tablet 25 mg PO DAILY 11/21/19 09/14/24 H istory glucosamine 500 mg-msm 100 mg-vit 1 cap PO DAILY 11/21/19 09/13/24 History C 20 wd-qtjtc-hlbc-primrose capsule hydrochlorothiazide 25 mg tablet 25 mg PO DAILY 11/21/19 09/13/24 H istory lovastatin 20 mg tablet 20 mg PO QHS 11/21/19 09/13/24 His tory multivitamin (Multiple Vitamins 1 tab PO DAILY 11/21/19 09/13/24 H istory tablet) omega 8-adv-bzf-fish oil 1,000 mg 1 cap PO DAILY 11/21/19 08/31/24 History (120 mg-180 mg) capsule (Fish Oil) turmeric root extract 500 mg 500 mg PO DAILY 11/21/19 09/13/24 History capsule omeprazole 20 mg capsule,delayed 20 mg PO .QOD 07/08/24 09/14/24 Hi story release Allergy/AdvReac Type Severity Reaction Status Date / Time Penicillins Allergy Hives Verified 09/14/24 06:38 Family History Mother Cancer Father Heart problem Surgical History H/O removal of cyst History of lumbar laminectomy H/O: hysterectomy Social History household members: spouse housing: house Smoking Status: Never smoker alcohol intake: never what type of physical activity do you participate in: none do you feel safe at home: Yes ROS Constitutional Constitutional: Denies chills, fatigue, fever(s) or weakness Eyes Eyes: Denies change in vision Cardiovascular Cardiovascular: Denies chest pain Respiratory/Chest Respiratory/Chest: Denies shortness of breath at rest Gastrointestinal Gastrointestinal: Denies abdominal pain Musculoskeletal Musculoskeletal: Denies arthralgias, myalgias or neck pain Neurologic Neurologic: Denies dizziness, focal weakness or headache(s) Psychiatric Psychiatric: Reports anxiety Physical Exam Const alert, oriented x3 and no apparent distress Constitutional Narrative: Elderly female, class I obesity, mildly anxious appearing, otherwise sitting up in bed with cervical collar on, conversing normally, in no acute distress. General Appearance: cooperative and comfortable HEENT normocephalic, head/scalp atraumatic, hearing grossly normal bilaterally, nasal mucous membranes and turbinates normal and moist oral mucous membranes Eyes PERRL, EOMs (more content not included)... Normal [facility] Glucose measurement at [facility] deOrdered By: Guerrero Valdivia on 09-14-2024 Glucose [Mass/Vol] 111 mg/dL High 74-106 [facility] Comment on above: MANAGEMENT OF PATIEN T CARE PER NURSING PROTOCOL MR/POSTOP.ANEon 09-14-2024 MR/POSTOP.[facility] Medical Records Department [address] [place] [address] Anesthesia Postop Eval I 09/14/24 1139 MR#: [id number] Acct: [id number] Name: DINORA SPAULDING Rep #: [id number] : 1950 74 From: Fatuma Cueto CRNA PCP: Dr. Moose Dempsey MD Status:REG SDC Y Race: C Location: [place] [address] Anesthesia: Postop Eval I Current Vital Signs Temperature: 97.5 F Pulse Rate: 68 Blood Pressure: 143/76 Respiratory Rate: 16 Pulse Ox: 99 Oxygen Delivery Method: Simple Mask Oxygen Flow Rate (L/min): 6 Assessment Airway patent: Yes Spontaneous unlabored respirations: Yes Mental status: Asleep nausea: No Vomiting: No Anesthesia Complication: No Fluid Hydration Crystalloid volume administer (ml): 600 Total IV fluid infused: 600 Progress Note Post-operative progress note: oral airway in place Anesthesia document: Postop Eval 1 completed: Yes 09/14/24 1140 Date Fatuma Cueto TREE FARMER Cosigner Signature: Date CC: Signed Normal [facility] MR/LAUBCHUC3ne 09-14-2024 [facility] Medical Records Department [address] [place] [address] Anesthesia Postop Eval II 09/14/24 1608 MR#: [id number] Acct: [id number] Name: DINORA SPAULDING Rep #: [id number] : 1950 74 From: Nikhil Pineda MD PCP: Dr. Moose Dempsey MD Status:ADM SALINAS Y Race: C Location: [facility] ML192-3 Anesthesia Postop Eval I Sum Postop Eval Completion status Anesthesia document: Postop Eval 1 completed: Yes Anesthesia Postop Eval I Summary Anesthesia Postop Eval I Summary: Anesthesia Postop Eval I: Assessment Summary Airway patent Yes 09/14/24 11:40 TREE FARMER.SKOBY Spontaneous unlabored Yes 09/14/24 11:40 TREE FARMER.SKOBY respirations Mental status Asleep 09/14/24 11:40 TREE FARMER.SKOBY nausea No 09/14/24 11:40 TREE FARMER.SKOBY Vomiting No 09/14/24 11:40 TREE FARMER.SKOBY Anesthesia Postop Eval I: Fluid Summary Crystalloid volume administer 600 09/14/24 11:40 TREE FARMER.JOSE (ml) Colloids volume administered ( ml) Blood Product volume administered (ml) Total IV fluid infused 600 09/14/24 11:40 TREE FARMER.BROOKOBBryan Anesthesia Postop Eval I: Summary Notes Anesthesia Complication No 09/14/24 11:40 TREE FARMER.BROOKOBBryan Anesthesia Complication Comment: Post-operative progress note oral airway in 09/14/24 11:[address] Anesthesia: Postop Eval II Evaluation Mental status: Awake and Calm Pain Level: 3 nausea: No Vomiting: No Complications Anesthesia Complication: No 09/14/24 1608 Date Nikhil Pineda MD Cosigner Signature: Date CC: Signed Normal [facility] Operative Reporton 5 Operative Report [facility] Medical Records Department [address] [place] [address] Operative Report 09/14/24 1135 MR#: [id number] Acct: [id number] Name: DINORA SPAULDING Rep #: [id number] : 1950 74 From: Guerrero Valdivia MD PCP: Dr. Moose Dempsey MD Status:REG [facility] Location: [place] [address]-1 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, stenosis, cord compression with myelopathy Post-Operative Diagnosis: Same Surgery/Procedure Performed: C3-5 ACDF cellar worker: Yes Sizing Machine And Drier Operator: Leeanna Dennis Tasks completed by speech pathology assistant: Closing, Implanting device, Hemostasis: Electrocautery and Retracting Type of Anesthesia: General RN Documented Start/Stop Times: Operation Date: 09/14/24 08:00 Case Time Into Pre-Op 09/14/24 06:06 Out of Pre-Op 09/14/24 08:45 Anesthesia Start 09/14/24 08:51 Into Room 09/14/24 08:51 Procedure Start 09/14/24 09:19 Procedure End 09/14/24 11:09 Anesthesia End 09/14/24 11:24 Out of Room 09/14/24 11:24 Procedure Start Time: 09:19 Procedure Stop Time: 11:09 Select all DRAINS/GRAFTS/IMPLANTS that apply: Graft Graft details: Structural allograft corticocancellous strut and Implanted device Implanted device details: Medtronic Arden-Arcade Elite plate instrumentation Estimated Blood Loss: 30 cc Specimen collected: No Description of surgery: Preoperative diagnosis: C3-5 disc degeneration with stenosis, cord compression, myelopathy Postoperative diagnosis: Same Name of procedure: C3-5 anterior cervical discectomy and fusion with plate instrumentation - Anterior cervical fusion C3-4, CPT code 65166 - Anterior plate instrumentation C3-5, CPT code 00584/59 - Anterior cervical fusion C4-5, CPT code 96135/51 -C3-4 structural allograft bone with DBX, CPT code 35085 - C4-5 structural allograft bone with DBX, CPT code 85703 Attending surgeon: Guerrero Valdivia M.D. Anesthesia: Gen. endotracheal Estimated blood loss: 30 mL Complications: None Instrumentation used: Medtronic Arden-Arcade Elite plate, LASR corticocancellous block Indications: The patient is a pleasant 74-year-old lady who presented with progressively worsening dexterity and balance. MRI showed C3-5 disc degeneration with cord compression and cord signal changes. In order to halt the progression of myelopathy, the patient requested surgical treatment. All risks and benefits of the procedure were explained to the patient. The risks include but are not limited to infection, bleeding, injury to nerves and vessels, vertebral artery injury, spinal cord injury, paralysis, vocal cord paralysis, injury to esophagus, pseudoarthrosis, need for further procedures, adjacent segment degeneration. Procedure: The patient was identified in the preoperative suite using unique patient identifiers. Skin was marked consent was taken and all questions were answered. The patient was then brought back to the operative room and a timeout was performed. General endotracheal anesthesia was given. Intraoperative neuro monitoring leads were applied. The patient was carefully positioned supine on a regular OR table. A lateral view with a C-arm was done to identify the level and to define the incision. The anterior neck was then prepped and draped in the usual fashion. A final timeout was then performed. A transverse skin incision was taken to the left of midline. Subcutaneous tissue was then divided with Bovie. Platysma was identified and cut along the incision with scissors. The fascial interval between the sternocleidomastoid and the larynx was developed. Omohyoid was identified and retracted. The esophagus with the larynx was retracted medially to reach the prevertebral fascia. Marker x-ray was performed with bent spinal needle and disc space and levels were confirmed. Longus coli muscle was elevated on both sides at and above and below C3-5 discs. Self-retaining retractors were then placed. A long handle knife was then used to perform annulotomy at C3-4. Disc fragments were removed with the pituitary. Randolph pins were placed in C3 and C4 for disc distraction. Curettes and bur was utilized to remove cartilage from the endplates. Discectomy was performed laterally up to the uncovertebral joints. Posterior osteophytes were thinned down with the bur and adequate decompression in the central and foraminal areas were performed and PLL was thinned out. Once the disc space was prepared, trials of various sizes were utilized. Thorough irrigation was given. 7 mm LASR cortical cancellous allograft bone large footprint was then fashioned in such a way that concavities were burred out inferiorly and superiorly and half cc of DBX (demineralized bone matrix) was squeezed into the cancellous portion. (more content not included)... Normal [facility] MRSA screenOrdered By: Frankie Valdivia on 09-07-2024 MRSA DNA JU+probe Ql (Unsp spec) [facility] MRSA/SAID NASAL SCREENon MRSA+SAID SCRN Reason for Exam: PRE OP MRSA MRSA Negative S. AUREUS S. aureus Negative Normal [facility] Comment on above: Performed By: #### M 100.651 ####[facility] [address] [facility] [place], [address] Electrocardiogram reportOrde red By: Chente Whitmore on 09-05-2024 EKG study [facility] Cardiovascular Services [address] [place] [address] 12 Lead EKG 07/03/25 0958 MR#: [id number] Acct: [id number] Name: DINORA SPAULDING Rep #:[id number] : 1950 74 From: Chente Whitmore MD Attending Dr: Dr. Guerrero Valdivia MD Status: PRE [facility] Ordering Dr: Guerrero Valdivia MD Date: Location: [facility] Sex: F C Admitted: Test Reason : PREOP Blood Pressure : */* mmHG Vent. Rate : 77 BPM Atrial Rate : 77 BPM P-R Int : 188 ms QRS Dur : 72 ms QT Int : 408 ms P-R-T Axes : 54 64 59 degrees QTcB Int : 461 ms Normal sinus rhythm Normal ECG Confirmed by CHENTE WHITMORE MD ([id number]), film or videotape editor KENNETH VILLAGRAN ([id number]) on 09/05/2024 9:48:03 AM Referred By: Guerrero Valdivia Confirmed By: CHENTE WHITMORE MD 09/05/24 0948 Date _ Chente Whitmore MD CC: Dr. Guerrero Valdivia MD; Dr. Moose Dempsey MD ~ Signed [facility] Work Phone: HIV Viral Load Quanton 09-05 HIV-1 RNA, PCR < 20 Normal . [facility] Comment on above: Order Comment: Reaso n for Laboratory Test SURGERY Result Comment: HIV- 1 RNA not detected The reportable range for this assay is 20 to 10,000,000 copies HIV-1 RNA/mL. Performed By: #### L 501.5200, L100.0100, L500.2500, L3100.0300, L3890.4000, BTSPAT, L501.9985 ####[facility] [address] [place], [address] log10 HIV-1 RNA TNP Normal . [facility] Comment on above: Order Comment: Reaso n for Laboratory Test SURGERY Result Comment: Resu lt Units: sov52nbas/mL Unable to calculate result since non-numeric result obtained for component test. Performed at: - [facility] [address] [id number] Business Architect: Ida Shaw MD, Phone: [phone] Performed By: #### L 501.5200, L100.0100, L500.2500, L3100.0300, L3890.4000, BTSPAT, L501.9985 ####[facility] [address] [place], [address] MR/PAT.ANEon 09-05-2024 MR/PAT.[facility] Medical Records Department [address] [place] [address] PAT - Anesthesia 09/05/24 1234 MR#: [id number] Acct: [id number] Name: DINORA SPAULDING Rep #: [id number] : 1950 74 From: Russell Julio MD PCP: Dr. Moose Dempsey MD Status:PRE [facility] Y Race: C Location: [facility] Pre-Assessment Diagnosis/Proposed Procedure Planned Operative Procedure(s): ANTEROIR CERVICAL DISC FUSION C3-4 AND C4-5 Anesthesia History Anesthesia History - methods time analyst: Anesthesia History - methods time analyst Hx Hospitalization No 08/31/24 10:11 Any Problems [...] take am of surgery PONV PONV - methods time analyst: PONV - methods time analyst Female Yes 08/31/24 10:11 HX of Motion [...] 07/28/24 13:21 Respiratory Assessment Respiratory Assessment - methods time analyst: Respiratory Tract Infection Hx - methods time analyst Hx Respiratory Tract Infection No 08/31/24 10:11 STOP Sleep Apnea STOP Sleep Apnea - methods time analyst: STOP Sleep Apnea - methods time analyst Hx Hypertension Yes: CONTROLLED WITH MEDS 08/31/24 [...] Tobacco Use History Tobacco Use History - methods time analyst: Tobacco Use History - methods time analyst Tobacco Use Smoking Status Never smoker 08/31/24 10:11 Hx Tobacco Use No 08/31/24 10:11 Years Smoking Packs Smoked per Day Smoking Cessation Date was within the last 15 years Hx Smoking Cessation Date Hx Smoking Cessation Counseling Hematologic Medial History Hematologic Hx - methods time analyst: Hematologic Medical Hx - revenue settlements administrator Hx of Blood Transfusion No 08/31/24 10:11 [...] confused, unrespo /Reproduction History /Reproductive History - methods time analyst: /Reproductive Hx- methods time analyst Hx Now Gestational Age (in weeks): EDC: Hx Hx Para Hx Section SAB COUNTS INCLUDE 234 BEDS AT THE [facility] Medical History Wears glasses Arthritis High cholesterol Gastric reflux Non-smoker History of pain when walking History of stress test Cataract Hyperlipidemia HTN (hypertension) Home Medications ???Medication ???Instructions ???Recorded ???Last Taken ???Type atenolol 25 mg tablet 25 mg PO DAILY 11/21/19 01/12/20 H istory glucosamine 500 mg-msm 100 mg-vit 1 cap PO DAILY 11/21/19 Unknown H istory C 20 kl-zrxjg-jrhr-primrose capsule hydrochlorothiazide 25 mg tablet 25 mg PO DAILY 11/21/19 Unknown Hi story lovastatin 20 mg tablet 20 mg PO QHS 11/21/19 Unknown Hist ory multivitamin (Multiple Vitamins 1 tab PO DAILY 11/21/19 Unknown Hi story tablet) omega 6-ogr-bas-fish oil 1,000 mg 1 cap PO DAILY 11/21/19 Unknown H istory (120 mg-180 mg) capsule (Fish Oil) turmeric root extract 500 mg 500 mg PO DAILY 11/21/19 Unknown H istory capsule omepr (more content not included)... Normal [facility] Hepatitis A AB, Totalon 07- HEPATITIS A,TOT Negative Normal Negative [facility] Comment on above: Result Comment: Comm ent: The HAV total antibody assay detects both IgG and IgM but does not differentiate between them. A negative result suggests susceptibility to infection. A positive result could be due to vaccination, previously resolved infection or active infection. Testing for HAV IgM should be performed if active HAV infection is suspected. [facility] offers profiles that will automatically reflex positive HAV total antibody results to IgM (e.g., panel #[id number] HAV Antibody w/ Rfx). Performed at: [address] [id number] Business Architect: Charles Souza PhD, Phone: [phone] Performed By: #### L 501.5200, L100.0100, L500.2500, L3100.0300, L3890.4000, BTSPAT, L501.9985 ####[facility] [address] [place], [address] 12 Lead EKGon 09-01-2024 12 Lead EKG [facility] Cardiovascular Services [address] [place] [address] 12 Lead EKG 09/01/24 0958 MR#: [id number] Acct: [id number] Name: DINORA SPAULDING Rep #: [id number] : 1950 74 From: Chente Whitmore MD Attending Dr: Dr. Guerrero Valdivia MD Status: PRE [facility] Ordering Dr: Guerrero Valdivia MD Date: 09/01/24 Location: [facility] [facility] Sex: F C Admitted: Test Reason : PREOP Blood Pressure : */* mmHG Vent. Rate : 77 BPM Atrial Rate : 77 BPM P-R Int : 188 ms QRS Dur : 72 ms QT Int : 408 ms P-R-T Axes : 54 64 59 degrees QTcB Int : 461 ms Normal sinus rhythm Normal ECG Confirmed by MYRANDA SAAVEDRA, CHENTE ([id number]), film or videotape editor KENNETH VILLAGRAN ([id number]) on 09/05/2024 9:48:03 AM Referred By: Guerrero Valdivia Confirmed By: CHENTE WHITMORE MD 09/05/24 0948 Date Chente Whitmore MD CC: Dr. Guerrero Valdivia MD; Dr. Moose Dempsey MD Signed Normal [facility] Basic Metabolic Profile (BMP )on 09-01-2024 BUN/CRE 19.7 RATIO Normal 10-20 [facility] Comment on above: Performed By: #### L 501.5200, L100.0100, L500.2500, L3100.0300, L3890.4000, BTSPAT, L501.9985 ####[facility] [address] [place], [address] Calcium [Mass/Vol] 9.5 mg/dL Normal 7.6-11.0 [facility] Comment on above: Performed By: #### L 501.5200, L100.0100, L500.2500, L3100.0300, L3890.4000, BTSPAT, L501.9985 ####[facility] [address] [place], [address] Chloride [Moles/Vol] 106 mmol/L Normal 98-108 [facility] Comment on above: Performed By: #### L 501.5200, L100.0100, L500.2500, L3100.0300, L3890.4000, BTSPAT, L501.9985 ####[facility] [address] [place], [address] CO2 [Moles/Vol] 23.4 mmol/L Normal 21.0-32.0 [facility] Comment on above: Performed By: #### L 501.5200, L100.0100, L500.2500, L3100.0300, L3890.4000, BTSPAT, L501.9985 ####[facility] [address] [place], [address] Creatinine [Mass/Vol] 0.92 mg/dL Normal 0.70-1.20 [facility] Comment on above: Performed By: #### L 501.5200, L100.0100, L500.2500, L3100.0300, L3890.4000, BTSPAT, L501.9985 ####[facility] [address] [place], [address] GAP 12 Normal 5-15 [facility] Comment on above: Performed By: #### L 501.5200, L100.0100, L500.2500, L3100.0300, L3890.4000, BTSPAT, L501.9985 ####[facility] [address] [place], [address] GFR/1.73 sq M.predicted among non-blacks MDRD (S/P/Bld) [Vol rate/Area] 65 mL/min/{1.73_m2} Normal >60 [facility] Comment on above: Result Comment: mL/m in/1.73m2 CKD-EPI Creatinine Equation (2020) Performed By: #### L 501.5200, L100.0100, L500.2500, L3100.0300, L3890.4000, BTSPAT, L501.9985 ####[facility] [address] [place], [address] Glucose [Mass/Vol] 114 mg/dL High 70-99 [facility] Comment on above: Performed By: #### L 501.5200, L100.0100, L500.2500, L3100.0300, L3890.4000, BTSPAT, L501.9985 ####[facility] [address] [place], [address] Potassium [Moles/Vol] 3.8 mmol/L Normal 3.3-5.1 [facility] Comment on above: Performed By: #### L 501.5200, L100.0100, L500.2500, L3100.0300, L3890.4000, BTSPAT, L501.9985 ####[facility] [address] [place], [address] Sodium [Moles/Vol] 141 mmol/L Normal 133-145 [facility] Comment on above: Performed By: #### L 501.5200, L100.0100, L500.2500, L3100.0300, L3890.4000, BTSPAT, L501.9985 ####[facility] [address] [place], [address] Urea nitrogen [Mass/Vol] 18 mg/dL Normal 4-19 [facility] Comment on above: Performed By: #### L 501.5200, L100.0100, L500.2500, L3100.0300, L3890.4000, BTSPAT, L501.9985 ####[facility] [address] [place], [address] CBC W/Diff, Automatedon 07-0 3-2025 Absolute Lymph 1.75 X10 3/uL Normal 0.83-4.51 [facility] Comment on above: Performed By: #### L 501.5200, L100.0100, L500.2500, L3100.0300, L3890.4000, BTSPAT, L501.9985 #### [facility] [address] [place], [address] Absolute Neut 3.7 X10 3/uL Normal 2.0-7.7 [facility] Comment on above: Performed By: #### L 501.5200, L100.0100, L500.2500, L3100.0300, L3890.4000, BTSPAT, L501.9985 #### [facility] [address] [place], [address] Basophils/100 WBC (Bld) 0.8 % Normal 0-1 [facility] Comment on above: Performed By: #### L 501.5200, L100.0100, L500.2500, L3100.0300, L3890.4000, BTSPAT, L501.9985 #### [facility] [address] [place], [address] Eosinophils/100 WBC (Bld) 0.8 % Normal 0-5 [facility] Comment on above: Performed By: #### L 501.5200, L100.0100, L500.2500, L3100.0300, L3890.4000, BTSPAT, L501.9985 #### [facility] [address] [place], [address] Erythrocyte distribution width (RBC) [Ratio] 13.4 % Normal 11.6-14.6 [facility] Comment on above: Performed By: #### L 501.5200, L100.0100, L500.2500, L3100.0300, L3890.4000, BTSPAT, L501.9985 #### [facility] [address] [place], [address] Hematocrit (Bld) [Volume fraction] 42.7 % Normal 37-47 [facility] Comment on above: Performed By: #### L 501.5200, L100.0100, L500.2500, L3100.0300, L3890.4000, BTSPAT, L501.9985 #### [facility] [address] [place], [address] Hemoglobin (Bld) [Mass/Vol] 14.9 g/dL Normal 12.0-15.0 [facility] Comment on above: Performed By: #### L 501.5200, L100.0100, L500.2500, L3100.0300, L3890.4000, BTSPAT, L501.9985 #### [facility] [address] [place], [address] IG% 0.300 Normal 0.0-0.9 [facility] Comment on above: Result Comment: IG% - Immature Granulocytes (promyelocytes, myelocytes and metamyelocytes) > 1% indicates that a LEFT SHIFT is Present. Performed By: #### L 501.5200, L100.0100, L500.2500, L3100.0300, L3890.4000, BTSPAT, L501.9985 #### [facility] [address] [place], [address] Lymphocytes/100 WBC (Bld) 29.0 % Normal 19-41 [facility] Comment on above: Performed By: #### L 501.5200, L100.0100, L500.2500, L3100.0300, L3890.4000, BTSPAT, L501.9985 #### [facility] [address] [place], [address] MCH (RBC) [Entitic mass] 29.3 pg Normal 27.0-32.0 [facility] Comment on above: Performed By: #### L 501.5200, L100.0100, L500.2500, L3100.0300, L3890.4000, BTSPAT, L501.9985 #### [facility] [address] [place], [address] MCHC (RBC) [Mass/Vol] 34.9 g/dL Normal 32-36 [facility] Comment on above: Performed By: #### L 501.5200, L100.0100, L500.2500, L3100.0300, L3890.4000, BTSPAT, L501.9985 #### [facility] [address] [place], [address] MCV (RBC) [Entitic vol] 84.1 fL Normal 81-99 [facility] Comment on above: Performed By: #### L 501.5200, L100.0100, L500.2500, L3100.0300, L3890.4000, BTSPAT, L501.9985 #### [facility] [address] [place] [place], [address] Monocytes/100 WBC (Bld) 7.0 % Normal 0-10 [facility] Comment on above: Performed By: #### L 501.5200, L100.0100, L500.2500, L3100.0300, L3890.4000, BTSPAT, L501.9985 #### [facility] [address] [place], [address] Neutrophils/100 WBC (Bld) 62.1 % Normal 47-70 [facility] Comment on above: Performed By: #### L 501.5200, L100.0100, L500.2500, L3100.0300, L3890.4000, BTSPAT, L501.9985 #### [facility] [address] [place], [address] Nucleated RBC (Bld) [#/Vol] 0 10*3/uL Normal 0-5 [facility] Comment on above: Performed By: #### L 501.5200, L100.0100, L500.2500, L3100.0300, L3890.4000, BTSPAT, L501.9985 #### [facility] [address] [place], [address] Platelet mean volume (Bld) [Entitic vol] 9.9 fL Normal 6.2-12.0 [facility] Comment on above: Performed By: #### L 501.5200, L100.0100, L500.2500, L3100.0300, L3890.4000, BTSPAT, L501.9985 #### [facility] [address] [place], [address] Platelets (Bld) [#/Vol] 279 10*3/uL Normal 150-450 [facility] Comment on above: Performed By: #### L 501.5200, L100.0100, L500.2500, L3100.0300, L3890.4000, BTSPAT, L501.9985 #### [facility] [address] [place], [address] RBC (Bld) [#/Vol] 5.08 10*6/uL Normal 4.2-5.4 [facility] Comment on above: Performed By: #### L 501.5200, L100.0100, L500.2500, L3100.0300, L3890.4000, BTSPAT, L501.9985 #### [facility] [address] [place], [address] RDW SD 41.6 fl Normal 35.1-43.9 [facility] Comment on above: Performed By: #### L 501.5200, L100.0100, L500.2500, L3100.0300, L3890.4000, BTSPAT, L501.9985 #### [facility] [address] [place], [address] WBC (Bld) [#/Vol] 6.0 10*3/uL Normal 4.4-11.0 [facility] Comment on above: Performed By: #### L 501.5200, L100.0100, L500.2500, L3100.0300, L3890.4000, BTSPAT, L501.9985 #### [facility] [address] [place], [address] Hemoglobin A1con 09-01-2024 HbA1c (Bld) [Mass fraction] 6.2 % High <=5.6 [facility] Comment on above: Result Comment: Norm al < 5.7 % Prediabetic 5.7 - 6.4 % Diabetic >or= 6.5 % Please note range changes. Performed By: #### L 501.5200, L100.0100, L500.2500, L3100.0300, L3890.4000, BTSPAT, L501.9985 ####[facility] [address] [place], [address] Hemoglobin A1c percentageOrd ered By: Guerrero Valdivia on 09-01-2024 HbA1c (Bld) [Mass fraction] 6.2 % High <5.7 [facility] Comment on above: Normal < 5.7 % Predi abetic 5.7 - 6.4 % Diabetic >or= 6.5 % Please note range changes. Magnesiumon 09-01-2024 Magnesium [Mass/Vol] 2.1 mg/dL Normal 1.5-2.2 [facility] Comment on above: Performed By: #### L 501.5200, L100.0100, L500.2500, L3100.0300, L3890.4000, BTSPAT, L501.9985 ####[facility] [address] [place], [address] Magnesium measurement (mass/ volume)Ordered By: Guerrero Valdivia on 09-01-2024 Magnesium (Unsp spec) [Mass/Vol] 2.1 mg/dL 1.5-2.2 [facility] Orthopedic Visit Reporton Orthopedic Visit Report [facility] [address] [place] [address] 5 [place] [address] OFFICE VISIT Date of Service: 09/01/24 MR#: [id number] Acct: [id number] Name: DINORA SPAULDING Rep #: [id number] : 1950 Provider: Dr. Guerrero Valdivia MD Age/Sex: 74/F Location: [facility].JESSICA Status: Signed Intake Vital Signs 07/28/24 13:21 [...] PO DAILY 11/21/19 09/01/24 History C 20 mw-rfgqt-ijfp-primrose capsule hydrochlorothiazide 25 mg tablet 25 mg PO DAILY 11/21/19 09/01/24 H istory lovastatin 20 mg tablet 20 mg PO QHS 11/21/19 09/01/24 His tory multivitamin (Multiple Vitamins 1 tab PO DAILY 11/21/19 09/01/24 H istory tablet) omega 8-xrn-zhg-fish oil 1,000 mg 1 cap PO DAILY [...] Brandy Stauffer MA, acting as scribe. DINORA SPAULDING is a 74 year old F here [...] generated note prior to signature. 07/28/24: DINORA SPAULDING is a 74 year old F here [...] the numbness and burning pain. 07/08/2024: DINORA SPAULDING is a 74 year old F here today for lumbar spine pain. She complains of low back pain that is equal abhijeet (more content not included)... Normal [facility] Plasma HIV 1 RNA viral load by probe and target amplification method (log number/voluOrdered By: Guerrero Valdivia on 09-01-2024 HIV 1 RNA JU+probe [Log #/Vol] TNP [facility] Comment on above: Test not performedRe sult Units: [id number]/mLUnable to calculate result since non-numeric resultobtained for component test.Performed at: - [address] [id number] Director: Ida Shaw MD, Phone: [phone] Type AND Screen - PAT ONLYon 09-01-2024 Ab SCREEN GEL Negative Normal [facility] Comment on above: Order Comment: Surge ry Date: 09/14/24 Reason for Laboratory Test SURGERY [id number] No N N S ANTERIOR CERVICAL FUSION Performed By: #### L 501.5200, L100.0100, L500.2500, L3100.0300, L3890.4000, BTSPAT, L501.9985 #### [facility] [address] [place], [place], [address] Cerv Spine 4 or 5 Viewson Cerv Spine 4 or 5 Views [facility] [address] [place], [place] [address] Cerv Spine 4 or 5 Views MR#: [id number] Acct: [id number] Name: DINORA SPAULDING Rep #: [id number] : 1950 F 74 From: Erwin Lynn MD PCP: Dr. Moose Dempsey MD Status: DEP [facility] Study: Cerv Spine 4 or 5 Views Date of Exam: 07/28/24 Exam# [id number] Ordering Dr: Hanny Zapata SECURITY OPERATIONS MANAGERKatie PROCEDURE: CERV SPINE 4 OR 5 VIEWS 07/28/2024 REASON FOR EXAM: CERVICAL PAIN, BALANCE ISSUES TECHNIQUE: 4 views of the cervical spine. COMPARISON: None. FINDINGS: No evidence of acute fracture or dislocation. No instability on flexion or extension views. Fckvdtdw-fl-fiffsr discogenic degenerative changes of the mid/lower cervical spine. RAD/Cerv Spine 4 or 5 Views IMPRESSION: Spondylosis. Reading Location: [place] [address] CC: SECURITY OPERATIONS MANAGER-C Hanny Zapata; Dr. Guerrero Valdivia MD; Dr. Moose Dempsey MD Household Manager: Signed Normal [facility] Orthopedic Visit Reporton Orthopedic Visit Report [facility] [address] [place] [address] OFFICE VISIT Date of Service: 07/28/24 MR#: [id number] Acct: [id number] Name: DINORA SPAULDING Rep #: [id number] : 1950 Provider: Dr. Guerreor Valdivia MD Age/Sex: 74/F Location: [facility].JESSICA Status: Signed Intake Vital Signs 09/16/23 07:39 [...] PO DAILY 11/21/19 07/28/24 History C 20 ll-culga-efou-primrose capsule hydrochlorothiazide 25 mg tablet 25 mg PO DAILY 11/21/19 07/28/24 H istory lovastatin 20 mg tablet 20 mg PO QHS 11/21/19 07/28/24 His tory multivitamin (Multiple Vitamins 1 tab PO DAILY 11/21/19 07/28/24 H istory tablet) omega 8-kix-izs-fish oil 1,000 mg 1 cap PO DAILY [...] by me, Dr. Guerrero Valdivia MD 07/28/24 1322. Part of today???s visit was documented by Bailey Miner AT[employer], acting as scribe. DINORA SPAULDING is a 74 year old F here [...] the numbness and burning pain. 07/08/2024: DINORA SPAULDING is a 74 year old F here [...] does not take blood thinners. 10/02/23: DINORA SPAULDING is a 73 year old F here [...] - 5=normal (more content not included)... Normal [facility] Magnetic resonance imaging r eportOrdered By: Lacey Red on 07-24-2024 Study report [facility] [address] [place] [address] Spine Cervical (Routine) MR#: [id number] Acct: [id number] Name: DINORA SPAULDING Rep #: [id number] : 1950 F 74 From: Candido Red MD PCP: Dr. Moose Dempsey MD Status: REG CL I Study:Spine Cervical (Routine) Date of Exam: 07/22/24 Exam# [id number] Ordering Dr: Yue Valdivia MD PROCEDURE: SPINE [...] compromise as detailed. Reading Location: [place] [address] CC: Dr. Guerrero Valdivia MD; Dr. Moose Dempsey MD ~ Household Manager: Signed [facility] Spine Cervical (Routine)on 0 07-22-2024 Spine Cervical (Routine) [facility] [address] [place] [address] Spine Cervical (Routine) MR#: [id number] Acct: [id number] Name: DINORA SPAULDING Rep #: [id number] : 1950 F 74 From: Lacey roy MD PCP: Dr. Moose Dempsey MD Status: REG CLI Study: Spine Cervical (Routine) Date of Exam: Exam# [id number] Ordering Dr: Guerrero Valdivia MD PROCEDURE: SPINE [...] neural foraminal compromise as detailed. Reading Location: [facility] CC: Dr. Guerrero Valdivia MD; Dr. Moose Dempsey MD Household Manager: Signed Normal [facility] Orthopedic Visit Reporton Orthopedic Visit Report [facility] [address] [place] [address] OFFICE VISIT Date of Service: 07/08/24 MR#: [id number] Acct: [id number] Name: DINORA SPAULDING Rep #: [id number] : 1950 Provider: Dr. Guerrero Valdivia MD Age/Sex: 74/F Location: [facility].JESSICA Status: Signed Intake Vital Signs 09/16/23 07:39 Height 5 ft 2 in Intake Visit Reasons: LUMBAR SPINE Chief Complaint: lumbar spine Allergies Penicillins Allergy (Verified 07/08/24 08:06) Hives Medications ???Medication ???Instructions ???Recorded ???Confirmed ???Type atenolol 25 mg tablet 25 mg PO DAILY 11/21/19 07/08/24 H istory glucosamine 500 mg-msm 100 mg-vit 1 cap PO DAILY 11/21/19 07/08/24 History C 20 ke-owzqj-oyqx-primrose capsule hydrochlorothiazide 25 mg tablet 25 mg PO DAILY 11/21/19 07/08/24 H istory lovastatin 20 mg tablet 20 mg PO QHS 11/21/19 07/08/24 His tory multivitamin (Multiple Vitamins 1 tab PO DAILY 11/21/19 07/08/24 H istory tablet) omega 5-ifv-shf-fish oil 1,000 mg 1 cap PO DAILY [...] Amaris Corey RN, acting as scribe. DINORA SPAULDING is a 74 year old F here [...] does not take blood thinners. 10/02/23: DINORA SPAULDING is a 73 year old F here [...] with sitting and leaning forward. 09/16/23: DINORA SPAULDING is a 73 year old F here [...] and injections. (more content not included)... Normal [facility] COMPREHENSIVE METABOLIC PANE Gus 10-22-2023 Albumin [Mass/Vol] 4.4 g/dL Normal 3.6-5.1 [facility] Comment on above: Performed By: #### 1 0231, 5670 #### [facility] [place] [address] Qc Tech: Yovany Garg MD Albumin/Globulin [Mass ratio] 2.0 {ratio} Normal 1.0-2.5 [facility] Comment on above: Performed By: #### 1 0231, 7600 #### [facility] [place] [address] Qc Tech: Yovany Garg MD ALP [Catalytic activity/Vol] 92 U/L Normal 37-153 [facility] Comment on above: Performed By: #### 1 0231, 7600 #### [facility] [place] [address] Qc Tech: Yovany Garg MD ALT [Catalytic activity/Vol] 26 U/L Normal 6-29 [facility] Comment on above: Performed By: #### 1 0231, 7600 #### [facility] [place] [address] Qc Tech: Yovany Garg MD AST [Catalytic activity/Vol] 23 U/L Normal 10-35 [facility] Comment on above: Performed By: #### 1 0231, 7600 #### [facility] of [address], [address] [place] [address] Qc Tech: Yovany Garg MD Bilirubin [Mass/Vol] 1.6 mg/dL High 0.2-1.2 [facility] Comment on above: Performed By: #### 1 0231, 7600 #### [facility] of [address], [address] [place] [address] Qc Tech: Yovany Garg MD BUN/CREATININE RATIO SEE NOTE: Normal 6-22 [facility] Comment on above: Result Comment: Not Reported: BUN and Creatinine are within reference range. Performed By: #### 1 0231, 7600 #### [facility] of [address], [address] [place] [address] Qc Tech: Yovany Garg MD Calcium [Mass/Vol] 9.8 mg/dL Normal 8.6-10.4 [facility] Comment on above: Performed By: #### 1 023, 7600 #### [facility] of [address], [address] [place] [address] Qc Tech: Yovany Garg MD Chloride [Moles/Vol] 104 mmol/L Normal 98-110 [facility] Comment on above: Performed By: #### 1 0231, 7600 #### [facility] of [address], [address] [place] [address] Qc Tech: Yovany Garg MD CO2 [Moles/Vol] 27 mmol/L Normal 20-32 [facility] Comment on above: Performed By: #### 1 0231, 7600 #### [facility] of [address], [address] [place] [address] Qc Tech: Yovany Garg MD Creatinine [Mass/Vol] 0.90 mg/dL Normal 0.60-1.[address] [facility] Comment on above: Performed By: #### 1 0231, 7600 #### [facility] of [address], [address] [place], [place] [address] Qc Tech: Yovany Garg MD GFR/1.73 sq M.predicted among non-blacks MDRD (S/P/Bld) [Vol rate/Area] 67 mL/min/{1.73_m2} Normal > OR = 60 [facility] Comment on above: Performed By: #### 1 023, 7600 #### [facility] [place] [address] Qc Tech: Yovany Garg MD Globulin (S) [Mass/Vol] 2.2 g/dL Normal 1.9-3.7 [facility] Comment on above: Performed By: #### 1 023, 7600 #### [facility] [place] [address] Qc Tech: Yovany Garg MD Glucose [Mass/Vol] 107 mg/dL High 65-99 [facility] Comment on above: Result Comment: Fasting reference interval For someone without known diabetes, a glucose value between 100 and 125 mg/dL is consistent with prediabetes and should be confirmed with a follow-up test. Performed By: #### 1 023, 0 #### [facility] [place] [address] Qc Tech: Yovany Garg MD Potassium [Moles/Vol] 4.1 mmol/L Normal 3.5-5.[address] [facility] Comment on above: Performed By: #### 1 023, 7600 #### [facility] [place] [address] Qc Tech: Yovany Garg MD Protein [Mass/Vol] 6.6 g/dL Normal 6.1-8.1 [facility] Comment on above: Performed By: #### 1 023, 7600 #### [facility] [place] [address] Qc Tech: Yovany Garg MD Sodium [Moles/Vol] 138 mmol/L Normal 135-146 [facility] Comment on above: Performed By: #### 1 0231, 7600 #### [facility] [address], [address] [place] [address] Qc Tech: Yovany Garg MD Urea nitrogen [Mass/Vol] 23 mg/dL Normal 7-25 [facility] Comment on above: Performed By: #### 1 023, 7600 #### [facility] [address], [address] [place] [address] Qc Tech: Yovany Garg MD LIPID PANEL, [facility] [place] 10-01 Cholesterol [Mass/Vol] 164 mg/dL Normal <200 [facility] Comment on above: Performed By: #### 1 023, 0 #### [facility] [address], [address] [place] [address] Qc Tech: Yovany Garg MD Cholesterol in HDL [Mass/Vol] 54 mg/dL Normal > OR = 50 [facility] Comment on above: Performed By: #### 1 230, 0 #### [facility] [address], [address] [place] [address] Qc Tech: Yovany Garg MD Cholesterol in LDL [Mass/Vol] 83 mg/dL Normal [facility] Comment on above: Result Comment: Refe rence range: <100 Desirable range <100 mg/dL for primary prevention; <70 mg/dL for patients with CHD or diabetic patients with > or = 2 CHD risk factors. LDL-C is now calculated using the Fabio calculation, which is a validated novel method providing better accuracy than the Friedewald equation in the estimation of LDL-C. Hunter ALFONSO et al. [place]. 2013;310(19): 8143-6990 (http://education.Casetext.MyQuoteApp/faq/DJE001) Performed By: #### 1 023, 0 #### [facility] [place] [address] Qc Tech: Yovany Garg MD Cholesterol.total/Mari sterol in HDL [Mass ratio] 3.0 {ratio} Normal <5.0 [facility] Comment on above: Performed By: #### 1 023, 0 #### [facility] [address], [address] [place] [address] Qc Tech: Yovany Garg MD NON HDL CHOLESTEROL 110 mg/dL (calc) Normal <130 [facility] Comment on above: Result Comment: For patients with diabetes plus 1 major ASCVD risk factor, treating to a non-HDL-C goal of <100 mg/dL (LDL-C of <70 mg/dL) is considered a therapeutic option. Performed By: #### 1 023, 0 #### [facility] [address], [address] [place] [address] Qc Tech: Yovany Garg MD Triglyceride [Mass/Vol] 171 mg/dL High <150 [facility] Comment on above: Performed By: #### 1 230, 0 #### [facility] [address], [address] [place] [address] Qc Tech: Yovany Garg MD Laboratory - Chemistry and C hemistry - challengeon 10-21-2023 Albumin [Mass/Vol] 4.4 g/dL Normal 3.6 - 5.1 g/dL [facility], [facility] [employer] Albumin/Globulin [Mass ratio] 2.0 {ratio} Normal 1.0 - 2.5 [facility], [facility].; [employer] ALP [Catalytic activity/Vol] 92 U/L Normal 37 - 153 U/L [employer], [facility].; [employer] ALT [Catalytic activity/Vol] 26 U/L Normal 6 - 29 U/L [employer], [facility].; [employer] AST [Catalytic activity/Vol] 23 U/L Normal 10 - 35 U/L [employer], [facility].; [employer] Bilirubin [Mass/Vol] 1.6 mg/dL Abnormal 0.2 - 1 .2 mg/dL [employer], [facility].; [employer] Calcium [Mass/Vol] 9.8 mg/dL Normal 8.6 - 10. 4 mg/dL [employer], [facility].; [employer] Chloride [Moles/Vol] 104 mmol/L Normal 98 - 11 0 mmol/L [facility], [facility].; [facility], [facility]. Cholesterol [Mass/Vol] 164 mg/dL Normal [facility].; [facility], [facility] Cholesterol in HDL [Mass/Vol] 54 mg/dL Normal [facility], [facility].; [facility], [facility] Cholesterol in LDL [Mass/Vol] 83 mg/dL Normal [facility], [facility].; [facility], [facility]. CO2 [Moles/Vol] 27 mmol/L Normal 20 - 32 mmol/L [facility], [facility].; [facility], [facility]. Creatinine [Mass/Vol] 0.90 mg/dL Normal 0.60 - 1.00 mg/dL [facility].; [facility], [facility]. GFR/1.73 sq M.predicted among non-blacks MDRD (S/P/Bld) [Vol rate/Area] 67 mL/min/{1.73_m2} Normal [facility], [facility].; [facility], [employer] Glucose [Mass/Vol] 107 mg/dL Abnormal 65 - 99 mg/dL [facility], [facility].; [place] [employer] ([employer]) [facility], [facility]. Potassium [Moles/Vol] 4.1 mmol/L Normal 3.5 - 5.3 mmol/L [facility].; [place] [employer] ([employer]CD[employer]) [facility], [facility]. Protein [Mass/Vol] 6.6 g/dL Normal 6.1 - 8.1 g/dL [facility], [facility].; [place] [employer] (RCD[employer]) [facility], [facility]. Sodium [Moles/Vol] 138 mmol/L Normal 135 - 146 mmol/L [facility], [facility].; [place] [employer] Triglyceride [Mass/Vol] 171 mg/dL Abnormal [facility].; [place] [employer] ([employer]CD[employer]) [facility], [facility]. Urea nitrogen [Mass/Vol] 23 mg/dL Normal 7 - 25 mg/dL [facility].; [facility], [facility] No Panel Informationon 10-20 BUN/CREATININE RATIO SEE NOTE: Normal 6 - 22 [facility], [facility].; [place] [employer] CHOL/HDLC RATIO 3.0 Normal [facility], [facility].; [facility], Inc[employer] GLOBULIN 2.2 Normal 1.9 - 3.7 [employer] NON HDL CHOLESTEROL 110 Normal [facility] [employer].; [employer] [facility], [place]. Orthopedic Visit Reporton Orthopedic Visit Report [facility] [address] [place] [address] OFFICE VISIT Date of Service: 10/02/23 MR#: [id number] Acct: [id number] Name: DINORA SPAULDING Rep #: [id number] : 1950 Provider: Dr. Guerrero Valdivia MD Age/Sex: 73/F Location: [facility].JESSICA Status: Signed Intake Vital Signs 09/16/23 07:39 [...] PO DAILY 11/21/19 09/16/23 History C 20 al-eutla-alir-primrose capsule hydrochlorothiazide 25 mg tablet 25 mg PO DAILY 11/21/19 09/16/23 History lovastatin 20 mg tablet 20 mg PO QHS 11/21/19 09/16/23 History multivitamin (Multiple Vitamins 1 tab PO DAILY 11/21/19 09/16/23 History tablet) omega 1-rro-tig-fish oil 1,000 mg 1 cap PO DAILY [...] made by me, Dr. Guerrero Valdivia MD 10/02/23 0817. Part of today???s visit was documented by [ ], acting as scribe. DINORA SPAULDING is a 73 year old F here [...] with sitting and leaning forward. 09/16/23: DINORA SPAULDING is a 73 year old F here [...] M51.36 T (more content not included)... Normal [facility] CREATININE FINGERSTICKon CREATININE WB < 1.0 Normal 0.55-1.02 [facility] Comment on above: Performed By: #### L 9100.0200 #### [facility] [address] [place], [address] EGFR WB > 60.0000 Normal >60 [facility] Comment on above: Performed By: #### L 9100.0200 #### [facility] [address] [place], [address] Spine Lumbar W/WO Contraston 09-30-2023 Spine Lumbar W/WO Contrast [facility] [address] [place] [address] Spine Lumbar W/WO Contrast MR#: [id number] Acct: [id number] Name: DINORA SPAULDING Rep #: [id number] : 1950 F 73 From: Johan Schroeder MD PCP: Dr. Moose Dempsey MD Status: REG CLI Study: Spine Lumbar W/WO Contrast Date of Exam: 09/01 03/25 Exam# [id number] Ordering [place]: [place] [id number] STUDY: MRI LUMBAR SPINE WITH AND WITHOUT [...] CC: Dr. Guerrero Valdivia MD; Dr. Moose Dempsey MD Household Manager: Signed Normal [facility] 3D MAMM BILAT SCREENon 07-20 3D MAMM BILAT SCREEN [place] [address] Patient: DINORA SPAULDING Phone#: : 1950 Age: 73 Gender: F Pt. Type: Out Account: [id number] Location: 05 Ordering: MOOSE DEMPSEY Exam Date: 07/21/2023/10:49 Family Phys: Charge Code: [id number] Physician: Mclean Order #: [id number] Dose#: PROCEDURE: BILATERAL SCREENING BREAST TOMOSYNTHESIS MAMMOGRAM WITH CAD COMPARISON: [facility], 3D BILAT SCREEN, 10/28/2021, 14:21. [facility], 3D LT SPOT VIEWS, 10/28/2021, 14:56. [facility], 3D UNILAT LT DIAGNOSTIC, 04/09/2022, 9:53. INDICATIONS: [...] Huang MD on 07/21/2023 at 12:30 Normal [facility] - Chemistry and C hemistry - challengeon 10-14-2022 Albumin [Mass/Vol] 4.5 g/dL Normal 3.6 - 5.1 g/dL [facility], [facility].; [place] [employer], [facility]. Albumin/Globulin [Mass ratio] 2.0 {ratio} Normal 1.0 - 2.5 [facility], [facility].; [employer] ALP [Catalytic activity/Vol] 85 U/L Normal 37 - 153 U/L [facility], [facility].; [place] [employer] ALT [Catalytic activity/Vol] 23 U/L Normal 6 - 29 U/L [place] [employer] ([employer]) [facility], [facility].; [employer] AST [Catalytic activity/Vol] 25 U/L Normal 10 - 35 U/L [place] [employer] (RCD[employer]) [facility], [facility].; [employer], [employer]. Bilirubin [Mass/Vol] 1.5 mg/dL Abnormal 0.2 - 1 .2 mg/dL [place] [employer] (RCD[employer]) [facility], [facility].; [employer] Calcium [Mass/Vol] 10.0 mg/dL Normal 8.6 - 10. 4 mg/dL [place] [employer] (RCD[employer]) [facility], [facility].; [employer] Chloride [Moles/Vol] 105 mmol/L Normal 98 - 11 0 mmol/L [place] [employer] ([employer]) [facility], [facility].; [employer] Cholesterol [Mass/Vol] 162 mg/dL Normal [facility], [facility].; [employer] Cholesterol in HDL [Mass/Vol] 49 mg/dL Abnormal [place] [employer], [facility].; [employer] Cholesterol in LDL [Mass/Vol] 85 mg/dL Normal [place] [employer] ([employer]) [facility].; [employer] CO2 [Moles/Vol] 24 mmol/L Normal 20 - 32 mmol/L [facility], [facility].; [employer] Creatinine [Mass/Vol] 0.91 mg/dL Normal 0.60 - 1.00 mg/dL [facility].; [place] [employer] (RCDb) [facility]. GFR/1.73 sq M.predicted among non-blacks MDRD (S/P/Bld) [Vol rate/Area] 66 mL/min/{1.73_m2} Normal [facility].; [place] [employer] (RCDb) [facility], [facility] Glucose [Mass/Vol] 112 mg/dL Abnormal 65 - 99 mg/dL [facility].; [place] [employer] (RCDb) [facility], [facility] Potassium [Moles/Vol] 4.4 mmol/L Normal 3.5 - 5.3 mmol/L [facility]; [facility], [facility] Protein [Mass/Vol] 6.8 g/dL Normal 6.1 - 8.1 g/dL [facility]; [place] [employer] (RCDb) [facility], [facility] Sodium [Moles/Vol] 140 mmol/L Normal 135 - 146 mmol/L [facility].; [place] [employer] (RCDb) [facility]. Triglyceride [Mass/Vol] 185 mg/dL Abnormal [facility].; [place] [employer] (RCDb) [facility]. Urea nitrogen [Mass/Vol] 18 mg/dL Normal 7 - 25 mg/dL [facility]; [place] [employer] (RCDb) [facility]. No Panel Informationon 10-14 BUN/CREATININE RATIO SEE NOTE: Normal 6 - 22 [facility].; [place] [employer]. CHOL/HDLC RATIO 3.3 Normal [facility]; [facility], [facility]. GLOBULIN 2.3 Normal 1.9 - 3.7 [facility].; [place] [employer], [facility]. NON HDL CHOLESTEROL 113 Normal [facility].; [place] [employer]. Laboratory - Chemistry and C hemistry - challengeon 09-17-2021 Albumin [Mass/Vol] 4.3 g/dL Normal 3.6 - 5.1 g/dL [facility].; [place] [employer], [facility]. Albumin/Globulin [Mass ratio] 1.8 {ratio} Normal 1.0 - 2.5 [facility].; [place] [employer]. ALP [Catalytic activity/Vol] 89 U/L Normal 37 - 153 U/L [facility], [facility].; [facility], [facility]. ALT [Catalytic activity/Vol] 22 U/L Normal 6 - 29 U/L [facility].; [facility], [facility]. AST [Catalytic activity/Vol] 20 U/L Normal 10 - 35 U/L [facility], [facility].; [facility], [facility]. Bilirubin [Mass/Vol] 1.5 mg/dL Abnormal 0.2 - 1 .2 mg/dL [facility], [facility].; [facility], [facility]. Calcium [Mass/Vol] 9.6 mg/dL Normal 8.6 - 10. 4 mg/dL [facility], [facility].; [facility], [facility]. Chloride [Moles/Vol] 104 mmol/L Normal 98 - 11 0 mmol/L [facility], [facility].; [facility], [facility]. Cholesterol [Mass/Vol] 167 mg/dL Normal [facility].; [facility], [facility] Cholesterol in HDL [Mass/Vol] 50 mg/dL Normal [facility], [facility].; [facility], [facility]. Cholesterol in LDL [Mass/Vol] 85 mg/dL Normal [facility], [facility].; [facility], [facility]. CO2 [Moles/Vol] 29 mmol/L Normal 20 - 32 mmol/L [facility], [facility].; [facility], [facility]. Creatinine [Mass/Vol] 0.90 mg/dL Normal 0.60 - 1.00 mg/dL [facility], [facility].; [facility], [facility]. GFR/1.73 sq M.predicted among non-blacks MDRD (S/P/Bld) [Vol rate/Area] 68 mL/min/{1.73_m2} Normal [facility], [facility].; [facility], [facility]. Glucose [Mass/Vol] 97 mg/dL Normal 65 - 99 mg/dL [facility], [facility].; [place] [employer] (RCDb) [facility] Potassium [Moles/Vol] 4.0 mmol/L Normal 3.5 - 5.3 mmol/L [facility], [facility].; [facility], [facility]. Protein [Mass/Vol] 6.7 g/dL Normal 6.1 - 8.1 g/dL [facility].; [facility]. Sodium [Moles/Vol] 141 mmol/L Normal 135 - 146 mmol/L [facility].; [facility], [facility]. Triglyceride [Mass/Vol] 234 mg/dL Abnormal H [facility].; [facility], [facility] Urea nitrogen [Mass/Vol] 19 mg/dL Normal 7 - 25 mg/dL [facility].; [facility]. No Panel Informationon 09-17 BUN/CREATININE RATIO NOT APPLICABLE Normal 6 - 22 [facility].; [facility]. CHOL/HDLC RATIO 3.3 Normal [facility]; [facility]. GLOBULIN 2.4 Normal 1.9 - 3.7 [facility].; [facility] NON HDL CHOLESTEROL 117 Normal [facility].; [facility]. BUTCH BY IFA SCREENon 06-19-19 Nuclear Ab IF (S) [Titer] Negative Normal Negative [facility] Comment on above: Order Comment: Sheyla pace Type: BLOOD SPECIMEN Ordering Facility: [facility] Address: [facility] [place] [address] Result Comment: Anti -nuclear antibody test is used as an aid in diagnosis of systemic autoimmune diseases. Where positive and clinically warranted, follow-up using disease-specific testing is recommended. Low positive titers are not uncommon with advanced age, certain chronic infections, and malignancies among others. Test methodology: Indirect fluorescence immunoassay (IFA) using HEp-2 cells. Performed By: #### H BA1C, IFESC, ANAIFS, RF, XSSAB, 49469-2, 89357-2, B1WB, ANCA #### [facility] CLIA [id number] [address] [place] [address] [place] ANTI NEUTRO CYTO ABon 2021 INTERPRETATION (ANCA) Test not performed on samples negative by immunofluorecense. Normal [facility] Comment on above: Order Comment: Sheyla pace Type: BLOOD SPECIMEN Ordering Facility: [facility] Address: [address] [place] [address] Performed By: #### H BA1C, IFESC, ANAIFS, RF, XSSAB, 91273-3, 77234-5, B1WB, ANCA #### [facility] CLIA [id number] [address] [place] [address] [place] Neutrophil cytoplasmic Ab.classic IF Ql (S) Negative Normal Negative [facility] Comment on above: Order Comment: Speci men Type: BLOOD SPECIMEN Ordering Facility: [facility] Address: [address] [place] [address] Performed By: #### H BA1C, IFESC, ANAIFS, RF, XSSAB, 98995-5, 69117-4, B1WB, ANCA #### [facility] CLIA [id number] [address] [place] [address] [place] Neutrophil cytoplasmic Ab.perinuclear IF Ql (S) Negative Normal Negative [facility] Comment on above: Order Comment: Speci men Type: BLOOD SPECIMEN Ordering Facility: [facility] Address: [address] [place] [address] Performed By: #### H BA1C, IFESC, ANAIFS, RF, XSSAB, 70287-3, 18264-6, B1WB, ANCA #### [facility] CLIA [id number] [address] [place] [address] [place] STAFF REVIEW (ANCA) No review performed. Normal [facility] Comment on above: Order Comment: Speci men Type: BLOOD SPECIMEN Ordering Facility: [facility] Address: [address] [place] [address] Result Comment: Staf f review not performed on samples negative by immunofluorescences. Performed By: #### H BA1C, IFESC, ANAIFS, RF, XSSAB, 95471-7, 81593-6, B1WB, ANCA #### [facility] CLIA [id number] [facility] [place] [id number] [place] Folate SerPl-mCncon 06-19-19 22 Folate [Mass/Vol] ng/mL Normal >4.7 [facility] Comment on above: Order Comment: Nereydajeni pace Type: BLOOD SPECIMEN Ordering Facility: [facility] Address: [facility] [place] [address] Result Comment: A re sult of > 20 ng/mL is not necessarily indicative of a pathologic or treatable condition: it reflects a limitation of the test methodology. Assay reference range: 4.8 to 24.2 ng/mL. Suitable for detection of folate deficiency. Reference: Folate III (Folate III) [package insert V 1.0 Georgian]. [facility], [place], [place]: December 2014. Performed By: #### 2 284-8 #### [facility] CLIA [id number] [address] [place] [address] [place] #### VITB6 #### [facility] CLIA [id number] [address] [place] [address] HCV Ab Ser Qlon 06-18-2021 HCV Ab Ql (S) Negative Normal Negative [facility] Comment on above: Order Comment: Nereydajnei pace Type: BLOOD SPECIMEN Ordering Facility: [facility] Address: [address] [place] [address] Result Comment: The result suggests no evidence of active infection with Hepatitis C virus. Should recent infection be suspected, repeat testing may be considered 4-6 weeks after this draw. Performed By: #### H BA1C, IFESC, ANAIFS, RF, XSSAB, 30001-1, 51115-9, B1WB, ANCA #### [facility] CLIA [id number] [address] [place] [address] [place] HGB A1Con 06-18-2021 Average glucose Estimated from glycated hemoglobin (Bld) [Mass/Vol] 120 mg/dL Normal [facility] Comment on above: Order Comment: Sheyla pace Type: BLOOD SPECIMEN Ordering Facility: [facility] Address: [facility] [place] [address] Result Comment: eAG: (Estimated average glucose) is a calculated value from HgbA1c and is union representative of the average blood glucose level in the last 2-3 month period. Performed By: #### H BA1C, IFESC, ANAIFS, RF, XSSAB, 35703-9, 44722-5, B1WB, ANCA #### [facility] CLIA [id number] [address] [address] [place] HbA1c (Bld) [Mass fraction] 5.8 % High 4.3-5.6 [facility] Comment on above: Order Comment: Sheyla men Type: BLOOD SPECIMEN Ordering Facility: [facility] Address: [address] [place] [address] Result Comment: Amer [place] Diabetes Association guidelines indicate that patients with HgbA1c in the range 5.7-6.4% are at increased risk for development of diabetes, and intervention by lifestyle modification may be beneficial. HgbA1c greater or equal to 6.5% is considered diagnostic of diabetes. Performed By: #### H BA1C, IFESC, ANAIFS, RF, XSSAB, 38570-9, 53615-2, B1WB, ANCA #### [facility] CLIA [id number] [address] [place], [place] [address] [facility] IMMUNOFIXATION SCREEN, SERUM on 06-18-2021 MPA RESULT No M protein is identified. Normal No M protein is identified. [facility] Comment on above: Order Comment: Sheyla sanjeev Type: BLOOD SPECIMEN Ordering Facility: [facility] Address: [address] [place], [place] [id number] Performed By: #### H BA1C, IFESC, ANAIFS, RF, XSSAB, 95201-9, 42753-6, B1WB, ANCA #### [facility] CLIA [id number] [address] [place], [place] [id number] [place] STAFF REVIEW (MPA) Reviewed by Jacob Sage M.D. Normal [facility] Comment on above: Order Comment: Sheyla men Type: BLOOD SPECIMEN Ordering Facility: [facility] Address: [address] [place] [address] [place] [address] Performed By: #### Narayan BA1C, IFESC, ANAIFS, RF, XSSAB, 86238-4, 96965-9, B1WB, ANCA #### [facility] CLIA [id number] [address] [place] [address] [place] Methylmalonate SerPl-sCncon 06-18-2021 Methylmalonate [Moles/Vol] 157 nmol/L Normal 79-376 [facility] Comment on above: Order Comment: Speci men Type: BLOOD SPECIMEN [facility]ing Facility: [facility] Address: [facility] [place] [address] Result Comment: This test was developed and its performance characteristics determined by [facility]'s Sergio Judah [facility] [place] ([facility]). It has not been cleared or approved by the FDA. [facility] is regulated under CLIA as qualified to perform high-complexity testing. This test is used for clinical purposes. It should not be regarded as investigational or for research. Performed By: #### Narayan BA1C, IFESC, ANAIFS, RF, XSSAB, 48586-4, 59872-3, B1WB, ANCA #### [facility] CLIA [id number] [address] [place] [address] [place] RHEUMATOID FACTOR BLon 06-18 Rheumatoid factor Qn [IU]/mL Normal <16 [facility] Comment on above: Order Comment: Speci men Type: BLOOD SPECIMEN Ordering Facility: [facility] Address: [address] [place] [id number] Performed By: #### H BA1C, IFESC, ANAIFS, RF, XSSAB, 61041-2, 46524-8, B1WB, ANCA #### [facility] CLIA [id number] [address] [place] [address] [place] SJOGREN ABS SSA/SSBon 2021 ANTI-SSB QUAL Negative Normal Negative [facility] Comment on above: Order Comment: Speci men Type: BLOOD SPECIMEN Ordering Facility: [facility] Address: [address] [place] [address] Result Comment: Anti -SSB (anti-La) antibody is used as an aid in diagnosis of a variety of systemic autoimmune diseases, especially for Sjogren's syndrome and systemic lupus erythematosus. Clinical correlation is required. Test Methodology: Multiplex flow immunoassay. Performed By: #### H BA1C, IFESC, ANAIFS, RF, XSSAB, 26349-3, 54176-2, B1WB, ANCA #### [facility] CLIA [id number] [address] [place] [address] [place] Sjogrens syndrome-A extractable nuclear Ab Qn (S) <0.2 Normal <1.0 [facility] Comment on above: Order Comment: [facility] Type: BLOOD SPECIMEN Ordering Facility: [facility] Address: [address] [place] [address] Performed By: #### H BA1C, IFESC, ANAIFS, RF, XSSAB, 99014-5, 86144-1, B1WB, ANCA #### [facility] CLIA [id number] [address] [place] [address] [place] Sjogrens syndrome-B extractable nuclear Ab Qn (S) <0.2 Normal <1.0 [facility] Comment on above: Order Comment: Speci [facility] Type: BLOOD SPECIMEN Ordering Facility: [facility] Address: [address] [place] [address] Performed By: #### H BA1C, IFESC, ANAIFS, RF, XSSAB, 01868-7, 64479-1, B1WB, ANCA #### [facility] CLIA [id number] [address] [place] [address] [place] SSA ANTIBODY QUAL Negative Normal Negative [facility] Comment on above: Order Comment: Speci [facility] Type: BLOOD SPECIMEN Ordering Facility: [facility] Address: [address] [place] [address] Result Comment: Anti -SSA (anti-Ro) antibody is used as an aid in diagnosis of a variety of systemic autoimmune diseases, Sjogren's syndrome among others. Clinical correlation is required. Test Methodology: Multiplex flow immunoassay. ??? Performed By: #### H BA1C, IFESC, ANAIFS, RF, XSSAB, 89065-3, 18516-1, B1WB, ANCA #### [facility] CLIA [id number] [address] [place] [address] [place] VITAMIN B1 (THIAMINE), WHOLE BLOODon 06-18-2021 Thiamine (Bld) [Moles/Vol] 234.1 nmol/L High 84.3-213.3 [facility] Comment on above: Order Comment: Speci men Type: BLOOD SPECIMEN Ordering Facility: [facility] Address: [facility] [place] [address] Result Comment: This assay measures the concentration of thiamine diphosphate (TDP), the primary active form of vitamin B1. Approximately 90 percent of vitamin B1 present in whole blood is TDP. Thiamine and thiamine monophosphate, which comprise the remaining 10 percent, are not measured. This test was developed and its performance characteristics determined by [facility]'s Sergio [facility]alis [facility] [place] (-[facility]). It has not been cleared or approved by the FDA. -[facility] is regulated under CLIA as qualified to perform high-complexity testing. This test is used for clinical purposes. It should not be regarded as investigational or for research. Performed By: #### H BA1C, IFESC, ANAIFS, RF, XSSAB, 52538-0, 36388-5, B1WB, ANCA #### [facility] CLIA [id number] [address] [place] [id number] [place] VITAMIN B6/PYRIDOXINon 06-18 VITAMIN B6 144.0 nmol/L High 20.0-125.0 [facility] Comment on above: Order Comment: Speci men Type: BLOOD SPECIMEN Ordering Facility: [facility] Address: [facility] [place] [address] Result Comment: INTE RPRETIVE INFORMATION: Vitamin B6 (Pyridoxal 5-Phosphate) Pyridoxal 5'-phosphate measured in a specimen collected following an 8-hour or overnight fast accurately indicates vitamin B6 nutritional status. Non-fasting specimen concentration reflects recent vitamin intake. This test was developed and its performance characteristics determined by [facility]. It has not been cleared or approved by the [place] Food and Drug Administration. This test was performed in a CLIA certified laboratory and is intended for clinical purposes. Performed By: [facility] [address] [place] [id number] [facility] Booking Clerk: Awilda Lay MD Performed By: #### H BA1C, IFESC, ANAIFS, RF, XSSAB, 18077-7, 51151-3, B1WB, ANCA #### [facility] CLIA [id number] [address] [place] [address] [place] Laboratory - Chemistry and C hemistry - challengeon 09-11-2020 Albumin [Mass/Vol] 4.5 g/dL Normal 3.6 - 5.1 g/dL [employer] [employer], [employer]. Albumin/Globulin [Mass ratio] 2.0 {ratio} Normal 1.0 - 2.5 [employer] [employer] ALP [Catalytic activity/Vol] 83 U/L Normal 37 - 153 U/L [employer] [employer] ALT [Catalytic activity/Vol] 24 U/L Normal 6 - 29 U/L [employer] [employer] AST [Catalytic activity/Vol] 22 U/L Normal 10 - 35 U/L [employer] [employer] Bilirubin [Mass/Vol] 1.3 mg/dL Abnormal 0.2 - 1 .2 mg/dL [employer] [employer] Calcium [Mass/Vol] 9.9 mg/dL Normal 8.6 - 10. 4 mg/dL [employer] [employer] Chloride [Moles/Vol] 104 mmol/L Normal 98 - 11 0 mmol/L [employer] [employer] Cholesterol [Mass/Vol] 166 mg/dL Normal [facility], [facility].; [facility], [facility]. Cholesterol in HDL [Mass/Vol] 58 mg/dL Normal [facility].; [facility], [facility]. Cholesterol in LDL [Mass/Vol] 82 mg/dL Normal [facility], [facility].; [place] [employer] ([employer] CO2 [Moles/Vol] 26 mmol/L Normal 20 - 32 mmol/L [facility], [facility].; [facility], [facility]. Creatinine [Mass/Vol] 1.00 mg/dL Abnormal 0.60 - 0.93 mg/dL [facility], [facility].; [facility], [facility]. GFR/1.73 sq M.predicted among blacks MDRD (S/P/Bld) [Vol rate/Area] 65 mL/min/{1.73_m2} Normal [facility], [facility].; [place] [employer] ([employer]) [facility] Glucose [Mass/Vol] 99 mg/dL Normal 65 - 99 mg/dL [facility], [facility].; [place] [employer] ([employer]) [facility], [facility]. Potassium [Moles/Vol] 4.3 mmol/L Normal 3.5 - 5.3 mmol/L [facility], [facility].; [place] [employer] ([employer]) [facility], [employer]. Protein [Mass/Vol] 6.8 g/dL Normal 6.1 - 8.1 g/dL [facility], [facility].; [place] [employer] Sodium [Moles/Vol] 138 mmol/L Normal 135 - 146 mmol/L [facility], [facility].; [place] [employer] ([employer]) [facility] Triglyceride [Mass/Vol] 154 mg/dL Abnormal [facility], [facility].; [facility], [facility] Urea nitrogen [Mass/Vol] 19 mg/dL Normal 7 - 25 mg/dL [facility], [facility].; [facility], [facility]. Urea nitrogen/Creatinine [Mass ratio] 19 mg/mg Normal 6 - 22 [facility], [facility].; [place] [employer] ([employer]) [facility], [facility]. No Panel Informationon 09-11 CHOL/HDLC RATIO 2.9 Normal [facility], [facility].; [place] [employer] eGFR NON-AFR. ZIMBABWEAN 56 Abnormal [facility].; [place] [employer] GLOBULIN 2.3 Normal 1.9 - 3.7 [facility].; [facility], [facility]. NON HDL CHOLESTEROL 108 Normal [facility].; [facility], [facility] Laboratory - Chemistry and C hemistry - challengeon 03-22-2019 Albumin [Mass/Vol] 4.5 g/dL Normal 3.6 - 5.1 g/dL [facility].; [facility], [facility] Albumin/Globulin [Mass ratio] 2.1 {ratio} Normal 1.0 - 2.5 [facility].; [facility], [facility]. ALP [Catalytic activity/Vol] 96 U/L Normal 33 - 130 U/L [facility].; [facility], [facility]. ALT [Catalytic activity/Vol] 28 U/L Normal 6 - 29 U/L [facility].; [facility], [facility]. AST [Catalytic activity/Vol] 22 U/L Normal 10 - 35 U/L [facility].; [place] [employer] ([employer]) [facility], [facility]. Bilirubin [Mass/Vol] 1.7 mg/dL Abnormal 0.2 - 1 .2 mg/dL [facility].; [place] [employer] ([employer]) [facility], [facility]. Calcium [Mass/Vol] 9.7 mg/dL Normal 8.6 - 10. 4 mg/dL [facility].; [place] [employer] ([employer]) [facility], [facility]. Chloride [Moles/Vol] 103 mmol/L Normal 98 - 11 0 mmol/L [facility], [facility].; [facility], [facility]. Cholesterol [Mass/Vol] 162 mg/dL Normal [facility].; [facility], [facility]. Cholesterol in HDL [Mass/Vol] 59 mg/dL Normal [facility], [facility].; [facility], [facility]. Cholesterol in LDL [Mass/Vol] 82 mg/dL Normal [facility], [facility].; [place] [employer] ([employer]) [facility], [facility]. CO2 [Moles/Vol] 33 mmol/L Abnormal 20 - 32 mmol/L [facility], [facility].; [place] [employer] ([employer]) [facility], [facility]. Creatinine [Mass/Vol] 0.89 mg/dL Normal 0.60 - 0.93 mg/dL [facility], [facility].; [facility], [facility]. GFR/1.73 sq M.predicted among blacks MDRD (S/P/Bld) [Vol rate/Area] 76 mL/min/{1.73_m2} Normal [facility]; [facility] Glucose [Mass/Vol] 99 mg/dL Normal 65 - 99 mg/dL [facility]; [facility] Potassium [Moles/Vol] 3.9 mmol/L Normal 3.5 - 5.3 mmol/L [facility]; [facility] Protein [Mass/Vol] 6.6 g/dL Normal 6.1 - 8.1 g/dL [facility]; [facility] Sodium [Moles/Vol] 141 mmol/L Normal 135 - 146 mmol/L [facility]; [facility] Triglyceride [Mass/Vol] 116 mg/dL Normal [facility]; [facility] Urea nitrogen [Mass/Vol] 20 mg/dL Normal 7 - 25 mg/dL [facility]; [place] [employer] ([employer]) [facility] No Panel Informationon 03-22 BUN/CREATININE RATIO NOT APPLICABLE Normal 6 - 22 [facility]; [place] [employer] ([employer]) [facility] CHOL/HDLC RATIO 2.7 Normal [facility]; [place] [employer] ([employer]) [facility] eGFR NON-AFR. ZIMBABWEAN [address] [facility]; [facility] GLOBULIN 2.1 Normal 1.9 - 3.7 [facility]; [facility] NON HDL CHOLESTEROL 103 Normal [facility]; [place] [employer] ([employer]) [facility] Laboratory - Chemistry and C hemistry - challengeon 02-19-2018 Albumin [Mass/Vol] 4.6 g/dL Normal 3.6 - 5.1 g/dL [facility]; [facility], [facility] Albumin/Globulin [Mass ratio] 1.9 {ratio} Normal 1.0 - 2.5 [facility]; [facility] ALP [Catalytic activity/Vol] 98 U/L Normal 33 - 130 U/L [facility].; [facility], [facility]. ALT [Catalytic activity/Vol] 29 U/L Normal 6 - 29 U/L [facility].; [facility], [facility]. AST [Catalytic activity/Vol] 23 U/L Normal 10 - 35 U/L [facility], [facility].; [facility], [facility]. Bilirubin [Mass/Vol] 1.8 mg/dL Abnormal 0.2 - 1 .2 mg/dL [facility].; [facility], [facility]. Calcium [Mass/Vol] 9.9 mg/dL Normal 8.6 - 10. 4 mg/dL [facility].; [facility], [facility]. Chloride [Moles/Vol] 103 mmol/L Normal 98 - 11 0 mmol/L [facility].; [facility], [facility]. Cholesterol [Mass/Vol] 180 mg/dL Normal [facility].; [facility], [facility] Cholesterol in HDL [Mass/Vol] 53 mg/dL Normal [facility].; [facility], [facility]. Cholesterol in LDL [Mass/Vol] 102 mg/dL Abnormal 0 - 100 mg/dL [facility].; [facility], [facility]. Cholesterol non HDL [Mass/Vol] 127 mg/dL Normal [facility].; [facility], [facility]. Cholesterol.total/Mari sterol in HDL [Mass ratio] 3.4 {ratio} Normal [facility].; [facility], [facility] CO2 [Moles/Vol] 30 mmol/L Normal 20 - 32 mmol/L [facility].; [facility], [facility]. Creatinine [Mass/Vol] 0.90 mg/dL Normal 0.50 - 0.99 mg/dL [facility], [facility].; [facility], [facility]. GFR/1.73 sq M.predicted among blacks MDRD (S/P/Bld) [Vol rate/Area] 76 {ML/MIN/1.73M2} Normal [facility], [facility].; [facility], [facility]. GFR/1.73 sq M.predicted MDRD (S/P/Bld) [Vol rate/Area] 65 {ML/MIN/1.73M2} Normal [facility].; [facility], [facility] Globulin (S) [Mass/Vol] 2.5 g/dL Normal 1.9 - 3.7 g/dL [facility].; [facility], [facility] Glucose [Mass/Vol] 108 mg/dL Abnormal 65 - 99 mg/dL [facility].; [facility], [facility] Potassium [Moles/Vol] 4.0 mmol/L Normal 3.5 - 5.3 mmol/L [facility].; [facility], [facility] Protein [Mass/Vol] 7.1 g/dL Normal 6.1 - 8.1 g/dL [facility]; [facility], [facility]. Sodium [Moles/Vol] 140 mmol/L Normal 135 - 146 mmol/L [facility].; [facility], [facility] Triglyceride [Mass/Vol] 151 mg/dL Abnormal H [facility].; [facility], [facility] Urea nitrogen [Mass/Vol] 20 mg/dL Normal 7 - 25 mg/dL [facility].; [facility], [facility] Urea nitrogen/Creatinine [Mass ratio] 22.3 mg/mg Abnormal 6 - 22 [facility]; [facility], [facility] Laboratory - Chemistry and C hemistry - challengeon 01-09-2017 Albumin [Mass/Vol] 4.5 g/dL Normal 3.6 - 5.1 g/dL [facility], [facility].; [facility], [facility]. Albumin/Globulin [Mass ratio] 2.0 {ratio} Normal 1.0 - 2.5 [facility].; [facility], [facility]. ALP [Catalytic activity/Vol] 91 U/L Normal 33 - 130 U/L [facility].; [facility], [facility]. ALT [Catalytic activity/Vol] 27 U/L Normal 6 - 29 U/L [facility].; [facility], [facility]. AST [Catalytic activity/Vol] 23 U/L Normal 10 - 35 U/L [facility].; [facility], [facility]. Bilirubin [Mass/Vol] 1.5 mg/dL Abnormal 0.2 - 1 .2 mg/dL [facility].; [facility], [facility]. Calcium [Mass/Vol] 9.9 mg/dL Normal 8.6 - 10. 4 mg/dL [facility].; [facility], [facility]. Chloride [Moles/Vol] 104 mmol/L Normal 98 - 11 0 mmol/L [facility], [facility].; [facility], [facility]. Cholesterol [Mass/Vol] 181 mg/dL Normal [facility].; [facility], [facility] Cholesterol in HDL [Mass/Vol] 54 mg/dL Normal [facility], [facility].; [facility], [facility]. Cholesterol in LDL [Mass/Vol] 105 mg/dL Abnormal 0 - 100 mg/dL [facility].; [facility], [facility] Cholesterol non HDL [Mass/Vol] 128 mg/dL Normal [facility], [facility].; [facility], [facility]. Cholesterol.total/Mari sterol in HDL [Mass ratio] 3.4 {ratio} Normal [facility].; [facility], [facility]. CO2 [Moles/Vol] 29 mmol/L Normal 20 - 31 mmol/L [facility], [facility].; [facility], [facility]. Creatinine [Mass/Vol] 0.91 mg/dL Normal 0.50 - 0.99 mg/dL [facility], [facility].; [facility], [facility]. GFR/1.73 sq M.predicted among blacks MDRD (S/P/Bld) [Vol rate/Area] 75 {ML/MIN/1.73M2} Normal [facility], [facility].; [facility], [facility]. GFR/1.73 sq M.predicted MDRD (S/P/Bld) [Vol rate/Area] 65 {ML/MIN/1.73M2} Normal [facility], [facility].; [facility], [facility]. Globulin (S) [Mass/Vol] 2.2 g/dL Normal 1.9 - 3.7 g/dL [facility], [facility].; [facility], [facility]. Glucose [Mass/Vol] 102 mg/dL Abnormal 65 - 99 mg/dL [facility], [facility].; [facility], [facility]. Potassium [Moles/Vol] 4.1 mmol/L Normal 3.5 - 5.3 mmol/L [facility].; [facility] Protein [Mass/Vol] 6.7 g/dL Normal 6.1 - 8.1 g/dL [facility].; [facility], [facility]. Sodium [Moles/Vol] 140 mmol/L Normal 135 - 146 mmol/L [facility].; [facility], [facility] Triglyceride [Mass/Vol] 120 mg/dL Normal [facility].; [facility], [facility] Urea nitrogen [Mass/Vol] 22 mg/dL Normal 7 - 25 mg/dL [facility]; [facility], [facility] Urea nitrogen/Creatinine [Mass ratio] 24.4 mg/mg Abnormal 6 - 22 [facility]; [facility], [facility] Laboratory - Chemistry and C hemistry - challengeon 01-08-2016 Albumin [Mass/Vol] 4.3 g/dL Normal 3.6 - 5.1 g/dL [facility]; [facility], [facility] Albumin/Globulin [Mass ratio] 1.6 {ratio} Normal 1.0 - 2.5 [facility]; [facility], [facility]. ALP [Catalytic activity/Vol] 92 U/L Normal 33 - 130 U/L [facility].; [facility], [facility]. ALT [Catalytic activity/Vol] 27 U/L Normal 6 - 29 U/L [facility].; [facility], [facility]. AST [Catalytic activity/Vol] 22 U/L Normal 10 - 35 U/L [facility].; [facility], [facility]. Bilirubin [Mass/Vol] 1.7 mg/dL Abnormal 0.2 - 1 .2 mg/dL [facility].; [facility], [facility]. Calcium [Mass/Vol] 9.5 mg/dL Normal 8.6 - 10. 4 mg/dL [facility], [facility].; [facility], [facility] Chloride [Moles/Vol] 103 mmol/L Normal 98 - 11 0 mmol/L [facility].; [facility] Cholesterol [Mass/Vol] 163 mg/dL Normal 125 - 200 mg/dL [facility].; [facility], [facility]. Cholesterol in HDL [Mass/Vol] 52 mg/dL Normal [facility].; [facility], [facility]. Cholesterol in LDL [Mass/Vol] 91 mg/dL Normal [employer] [employer] ([employer]) [facility].; [place] [employer]. Cholesterol non HDL [Mass/Vol] 111 mg/dL Normal [place] [employer] ([employer]) [facility].; [place] [employer] ([employer]) [facility], [facility]. Cholesterol.total/Mari sterol in HDL [Mass ratio] 3.1 {ratio} Normal [facility].; [employer] [employer], [facility]. CO2 [Moles/Vol] 27 mmol/L Normal 20 - 31 mmol/L [facility].; [place] [employer] ([employer]) [facility], [facility]. Creatinine [Mass/Vol] 0.96 mg/dL Normal 0.50 - 0.99 mg/dL [facility], [facility].; [place] [employer] ([employer]) [facility], [facility]. GFR/1.73 sq M.predicted among blacks MDRD (S/P/Bld) [Vol rate/Area] 71 {ML/MIN/1.73M2} Normal [place] [employer] ([employer]) [facility].; [place] [employer] ([employer]) [facility], [facility]. GFR/1.73 sq M.predicted MDRD (S/P/Bld) [Vol rate/Area] 61 {ML/MIN/1.73M2} Normal [place] [employer] ([employer]) [facility], [facility].; [employer] [employer], [facility]. Globulin (S) [Mass/Vol] 2.6 g/dL Normal 1.9 - 3.7 g/dL [facility].; [place] [employer], [facility]. Glucose [Mass/Vol] 98 mg/dL Normal 65 - 99 mg/dL [place] [employer] ([employer]) [facility], [facility].; [employer], [facility]. Potassium [Moles/Vol] 4.4 mmol/L Normal 3.5 - 5.3 mmol/L [place] [employer] [facility] (RCDb) [facility].; [employer] Protein [Mass/Vol] 6.9 g/dL Normal 6.1 - 8.1 g/dL [place] [employer] (RCD[employer]) [facility], [facility].; [place] [employer], [facility]. Sodium [Moles/Vol] 138 mmol/L Normal 135 - 146 mmol/L [place] [facility].; [facility], [facility]. Triglyceride [Mass/Vol] 98 mg/dL [facility].; [facility], [facility]. Urea nitrogen [Mass/Vol] 21 mg/dL Normal 7 - 25 mg/dL [facility].; [facility], [facility]. Urea nitrogen/Creatinine [Mass ratio] 22.2 mg/mg Abnormal 6 - 22 [facility], [facility].; [facility], [facility]. Laboratory - Chemistry and C hemistry - challengeon 01-02-2015 Albumin [Mass/Vol] 4.4 g/dL Normal 3.6 - 5.1 g/dL [facility].; [facility], [facility]. Albumin/Globulin [Mass ratio] 2.0 {ratio} Normal 1.0 - 2.5 [facility].; [facility], [facility]. ALP [Catalytic activity/Vol] 92 U/L Normal 33 - 130 U/L [facility].; [facility], [facility]. ALT [Catalytic activity/Vol] 23 U/L Normal 6 - 29 U/L [facility].; [place] [employer] (RCDb) [facility], [facility]. AST [Catalytic activity/Vol] 24 U/L Normal 10 - 35 U/L [facility].; [place] [employer] (RCD[employer]) [facility], [facility]. Bilirubin [Mass/Vol] 1.4 mg/dL Abnormal 0.2 - 1 .2 mg/dL [facility], [facility].; [place] [employer] (RCDb) [facility], [facility]. Calcium [Mass/Vol] 9.6 mg/dL Normal 8.6 - 10. 4 mg/dL [facility].; [facility], [facility]. Chloride [Moles/Vol] 105 mmol/L Normal 98 - 11 0 mmol/L [facility].; [place] [employer] (RCDb) [facility], [facility]. Cholesterol [Mass/Vol] 178 mg/dL Normal 125 - 200 mg/dL [facility], [facility].; [facility], [facility]. Cholesterol in HDL [Mass/Vol] 56 mg/dL Normal [facility], [facility].; [facility], [facility]. Cholesterol in LDL [Mass/Vol] 98 mg/dL Normal [facility].; [facility], [facility]. Cholesterol non HDL [Mass/Vol] 122 mg/dL Normal [facility], [facility].; [facility], [facility]. Cholesterol.total/Mari sterol in HDL [Mass ratio] 3.2 {ratio} Normal [facility], [facility].; [facility], [facility]. CO2 [Moles/Vol] 27 mmol/L Normal 19 - 30 mmol/L [facility], [facility].; [facility], [facility]. Creatinine [Mass/Vol] 0.92 mg/dL Normal 0.50 - 0.99 mg/dL [facility], [facility].; [facility], [facility]. GFR/1.73 sq M.predicted among blacks MDRD (S/P/Bld) [Vol rate/Area] 75 {ML/MIN/1.73M2} Normal [facility], [facility].; [facility], [facility]. GFR/1.73 sq M.predicted MDRD (S/P/Bld) [Vol rate/Area] 65 {ML/MIN/1.73M2} Normal [facility], [facility].; [facility], [facility]. Globulin (S) [Mass/Vol] 2.2 g/dL Normal 1.9 - 3.7 g/dL [facility], [facility].; [facility], [facility]. Glucose [Mass/Vol] 98 mg/dL Normal 65 - 99 mg/dL [facility], [facility].; [facility], [facility]. Potassium [Moles/Vol] 4.1 mmol/L Normal 3.5 - 5.3 mmol/L [facility], [facility].; [facility], [facility]. Protein [Mass/Vol] 6.6 g/dL Normal 6.1 - 8.1 g/dL [facility], [facility].; [place] [employer] (RCDb) [facility], [facility]. Sodium [Moles/Vol] 141 mmol/L Normal 135 - 146 mmol/L [facility], [facility].; [place] [employer] (RCDb) [facility], [facility]. Triglyceride [Mass/Vol] 120 mg/dL Normal [facility], [facility].; [facility], [facility]. Urea nitrogen [Mass/Vol] 23 mg/dL Normal 7 - 25 mg/dL [facility], [facility].; [facility], [facility]. Urea nitrogen/Creatinine [Mass ratio] 25.2 mg/mg Abnormal 6 - 22 [facility], [facility].; [employer]. Laboratory - Chemistry and C hemistry - challengeon 12-27-2013 Albumin [Mass/Vol] 4.4 g/dL Normal 3.6 - 5.1 g/dL [facility].; [place] [employer] (RCDb) [facility], [facility]. Albumin/Globulin [Mass ratio] 1.9 {ratio} Normal 1.0 - 2.5 [facility].; [place] [employer], [employer]. ALP [Catalytic activity/Vol] 92 U/L Normal 33 - 130 U/L [facility].; [place] [employer] (RCDb) [facility], [facility]. ALT [Catalytic activity/Vol] 20 U/L Normal 6 - 29 U/L [facility].; [place] [employer] (RCDb) [facility], [employer]. AST [Catalytic activity/Vol] 23 U/L Normal 10 - 35 U/L [facility].; [employer], [employer]. Bilirubin [Mass/Vol] 1.3 mg/dL Abnormal 0.2 - 1 .2 mg/dL [facility].; [employer]. Calcium [Mass/Vol] 9.6 mg/dL Normal 8.6 - 10. 4 mg/dL [place] [employer] (RCDb) [facility].; [employer], [employer]. Chloride [Moles/Vol] 108 mmol/L Normal 98 - 11 0 mmol/L [facility].; [employer], [employer]. Cholesterol [Mass/Vol] 172 mg/dL Normal 125 - 200 mg/dL [place] [employer] (RCDb) [facility], [facility].; [employer], [employer]. Cholesterol in HDL [Mass/Vol] 55 mg/dL Normal [facility].; [employer]. Cholesterol in LDL [Mass/Vol] 98 mg/dL Normal [employer] [facility].; [employer], [employer]. Cholesterol non HDL [Mass/Vol] 117 mg/dL Normal [employer] [facility].; [employer], [employer]. Cholesterol.total/Mari sterol in HDL [Mass ratio] 3.1 {ratio} Normal [place] [employer], [employer].; [employer], [employer]. CO2 [Moles/Vol] 26 mmol/L Normal 19 - 30 mmol/L [facility].; [employer]. Creatinine [Mass/Vol] 0.92 mg/dL Normal 0.50 - 0.99 mg/dL [facility], [facility].; [facility], [facility]. GFR/1.73 sq M.predicted among blacks MDRD (S/P/Bld) [Vol rate/Area] 76 {ML/MIN/1.73M2} Normal [facility], [facility].; [facility], [facility]. GFR/1.73 sq M.predicted MDRD (S/P/Bld) [Vol rate/Area] 65 {ML/MIN/1.73M2} Normal [facility], [facility].; [facility], [facility]. Globulin (S) [Mass/Vol] 2.3 g/dL Normal 1.9 - 3.7 g/dL [facility], [facility].; [facility], [facility]. Glucose [Mass/Vol] 95 mg/dL Normal 65 - 99 mg/dL [facility], [facility].; [facility], [facility]. Potassium [Moles/Vol] 4.2 mmol/L Normal 3.5 - 5.3 mmol/L [facility].; [facility], [facility]. Protein [Mass/Vol] 6.7 g/dL Normal 6.1 - 8.1 g/dL [facility], [facility].; [facility], [facility]. Sodium [Moles/Vol] 142 mmol/L Normal 135 - 146 mmol/L [facility], [facility].; [place] [employer] (RCDb) [facility], [facility]. Triglyceride [Mass/Vol] 94 mg/dL Normal H [facility].; [facility], [facility]. Urea nitrogen [Mass/Vol] 24 mg/dL Normal 7 - 25 mg/dL [facility], [facility].; [place] [employer] (RCDb) [facility], [facility]. Urea nitrogen/Creatinine [Mass ratio] 26.2 mg/mg Abnormal - [facility].; [facility], [facility]. Laboratory - Chemistry and C hemistry - challengeon 12-21-2012 Albumin [Mass/Vol] 4.5 g/dL Normal 3.6 - 5.1 g/dL [facility], [facility].; [place] [employer] (RCDb) [facility], [facility]. Albumin/Globulin [Mass ratio] 2.1 {ratio} Normal 1.0 - 2.5 [facility].; [facility], [facility]. ALP [Catalytic activity/Vol] 93 U/L Normal 33 - 130 U/L [facility].; [facility]. ALT [Catalytic activity/Vol] 20 U/L Normal 6 - 29 U/L [facility].; [facility], [facility]. AST [Catalytic activity/Vol] 20 U/L Normal 10 - 35 U/L [facility].; [place] [employer] (RCDb) [facility]. Bilirubin [Mass/Vol] 1.4 mg/dL Abnormal 0.2 - 1 .2 mg/dL [facility].; [place] [employer] (RCDb) [facility], [facility]. Calcium [Mass/Vol] 9.9 mg/dL Normal 8.6 - 10. 4 mg/dL [facility].; [place] [employer] (RCDb) [facility]. Chloride [Moles/Vol] 104 mmol/L Normal 98 - 11 0 mmol/L [facility].; [place] [employer] (RCDb) [facility], [facility]. Cholesterol [Mass/Vol] 177 mg/dL Normal 125 - 200 mg/dL [facility].; [place] [employer] (RCDb) [facility]. Cholesterol in HDL [Mass/Vol] 58 mg/dL Normal [facility].; [place] [employer] (RCDb) [facility] [employer]. Cholesterol in LDL [Mass/Vol] 91 mg/dL Normal [facility].; [place] [employer] (RCDb) [facility] [employer]. Cholesterol non HDL [Mass/Vol] 119 mg/dL Normal [facility].; [place] [employer] (RCDb) [facility]. Cholesterol.total/Mari sterol in HDL [Mass ratio] 3.1 {ratio} Normal [facility].; [place] [employer]. CO2 [Moles/Vol] 28 mmol/L Normal 19 - 30 mmol/L [facility].; [place] [employer] (RCDb) [facility]. Creatinine [Mass/Vol] 0.97 mg/dL Normal 0.50 - 0.99 mg/dL [place] [employer] (RCDb) [facility].; [place] [employer], [facility]. GFR/1.73 sq M.predicted among blacks MDRD (S/P/Bld) [Vol rate/Area] 72 {ML/MIN/1.73M2} Normal [facility].; [place] [employer] (RCDb) [facility], [facility]. GFR/1.73 sq M.predicted MDRD (S/P/Bld) [Vol rate/Area] 62 {ML/MIN/1.73M2} Normal [facility].; [facility], [facility] Globulin (S) [Mass/Vol] 2.2 g/dL Normal 1.9 - 3.7 g/dL [facility].; [facility], [facility] Glucose [Mass/Vol] 93 mg/dL Normal 65 - 99 mg/dL [facility].; [facility], [facility] Potassium [Moles/Vol] 4.3 mmol/L Normal 3.5 - 5.3 mmol/L [facility].; [facility], [facility] Protein [Mass/Vol] 6.7 g/dL Normal 6.1 - 8.1 g/dL [facility].; [facility], [facility] Sodium [Moles/Vol] 140 mmol/L Normal 135 - 146 mmol/L [facility], [facility].; [facility], [facility] Triglyceride [Mass/Vol] 139 mg/dL Normal H [facility].; [facility], [facility] Urea nitrogen [Mass/Vol] 19 mg/dL Normal 7 - 25 mg/dL [facility].; [facility], [facility] Urea nitrogen/Creatinine [Mass ratio] 20.0 mg/mg Normal 6 - 22 [facility]; [facility] Laboratory - Chemistry and C hemistry - challengeon 12-16-2011 Albumin [Mass/Vol] 4.5 g/dL Normal 3.6 - 5.1 g/dL [facility].; [facility], [facility]. Albumin/Globulin [Mass ratio] 1.8 {ratio} Normal 1.0 - 2.1 [facility].; [facility]. ALP [Catalytic activity/Vol] 104 U/L Normal 33 - 130 U/L [facility].; [facility], [facility]. ALT [Catalytic activity/Vol] 36 U/L Normal 6 - 40 U/L [facility].; [facility], [facility]. AST [Catalytic activity/Vol] 33 U/L Normal 10 - 35 U/L [facility].; [facility] HospitalG[facility] [employer] Bilirubin [Mass/Vol] 1.3 mg/dL Abnormal 0.2 - 1 .2 mg/dL [facility].; [facility], [facility]. Calcium [Mass/Vol] 10.2 mg/dL Normal 8.6 - 10. 4 mg/dL [facility].; [place] [employer] (RCDb) [facility], [facility]. Chloride [Moles/Vol] 103 mmol/L Normal 98 - 11 0 mmol/L [facility].; [facility], [facility]. Cholesterol [Mass/Vol] 178 mg/dL Normal 125 - 200 mg/dL [facility].; [place] [employer] (RCDb) [facility], [facility]. Cholesterol in HDL [Mass/Vol] 50 mg/dL Normal [facility].; [facility], [facility]. Cholesterol in LDL [Mass/Vol] 96 mg/dL Normal [facility].; [place] [employer], [employer]. Cholesterol non HDL [Mass/Vol] 128 mg/dL Normal [facility].; [place] [employer] (RCDb) [facility], [facility]. Cholesterol.total/Mari sterol in HDL [Mass ratio] 3.6 {ratio} Normal [facility].; [place] [employer]. CO2 [Moles/Vol] 29 mmol/L Normal 21 - 33 mmol/L [facility].; [place] [employer], [facility]. Creatinine [Mass/Vol] 0.93 mg/dL Normal 0.50 - 0.99 mg/dL [facility], [facility].; [place] [employer] (RCDb) [facility], [facility]. GFR/1.73 sq M.predicted among blacks MDRD (S/P/Bld) [Vol rate/Area] 76 {ML/MIN/1.73M2} Normal [facility].; [place] [employer] (RCDb) [facility], [facility]. GFR/1.73 sq M.predicted MDRD (S/P/Bld) [Vol rate/Area] 65 {ML/MIN/1.73M2} Normal [facility], [facility].; [place] [employer] (RCDb) [facility], [facility]. Globulin (S) [Mass/Vol] 2.5 g/dL Normal 2.2 - 3.9 g/dL [facility], [facility].; [place] [employer], [facility]. Glucose [Mass/Vol] 102 mg/dL Abnormal 65 - 99 mg/dL [facility].; [facility], [facility]. Potassium [Moles/Vol] 4.7 mmol/L Normal 3.5 - 5.3 mmol/L [facility].; [facility], [facility] Protein [Mass/Vol] 7.0 g/dL Normal 6.2 - 8.3 g/dL [facility], [facility].; [facility], [facility] Sodium [Moles/Vol] 141 mmol/L Normal 135 - 146 mmol/L [facility].; [facility], [facility] Triglyceride [Mass/Vol] 162 mg/dL Abnormal H [facility].; [facility], [facility] Urea nitrogen [Mass/Vol] 16 mg/dL Normal 7 - 25 mg/dL [facility].; [facility], [facility] Urea nitrogen/Creatinine [Mass ratio] 16.8 mg/mg Normal 6 - 22 [facility].; [facility], [facility] Laboratory - Chemistry and C hemistry - challengeon 12-19-2010 Albumin [Mass/Vol] 4.9 g/dL Normal 3.6 - 5.1 g/dL [facility].; [facility], [facility]. Albumin/Globulin [Mass ratio] 2.1 {ratio} Normal 1.0 - 2.1 [facility].; [facility], [facility]. ALP [Catalytic activity/Vol] 118 U/L Normal 33 - 130 U/L [facility], [facility].; [facility], [facility]. ALT [Catalytic activity/Vol] 24 U/L Normal 6 - 40 U/L [facility].; [facility], [facility]. AST [Catalytic activity/Vol] 22 U/L Normal 10 - 35 U/L [facility], [facility].; [facility], [facility]. Bilirubin [Mass/Vol] 1.8 mg/dL Abnormal 0.2 - 1 .2 mg/dL [facility].; [facility], [facility]. Calcium [Mass/Vol] 9.9 mg/dL Normal 8.6 - 10. 2 mg/dL [facility], [facility].; [facility], [facility] Chloride [Moles/Vol] 104 mmol/L Normal 98 - 11 0 mmol/L [facility].; [facility]. Cholesterol [Mass/Vol] 181 mg/dL Normal 125 - 200 mg/dL [facility].; [facility], [facility]. Cholesterol in HDL [Mass/Vol] 53 mg/dL Normal [facility].; [facility], [facility]. Cholesterol in LDL [Mass/Vol] 96 mg/dL Normal [facility], [facility].; [facility], [facility]. Cholesterol.total/Mari sterol in HDL [Mass ratio] 3.4 {ratio} Normal [facility].; [facility]. CO2 [Moles/Vol] 27 mmol/L Normal 21 - 33 mmol/L [facility].; [facility], [facility]. Creatinine [Mass/Vol] 1.10 mg/dL Normal 0.60 - 1.18 mg/dL [facility], [facility].; [facility], [facility]. GFR/1.73 sq M.predicted among blacks MDRD (S/P/Bld) [Vol rate/Area] 62 {ML/MIN/1.73M2} Normal [facility].; [facility], [facility]. GFR/1.73 sq M.predicted MDRD (S/P/Bld) [Vol rate/Area] 54 {ML/MIN/1.73M2} Abnormal [facility].; [facility], [facility]. Globulin (S) [Mass/Vol] 2.3 g/dL Normal 2.2 - 3.9 g/dL [facility], [facility].; [facility], [facility]. Glucose [Mass/Vol] 99 mg/dL Normal 65 - 99 mg/dL [facility], [facility].; [place] [employer] (RCDb) [facility], [facility]. Potassium [Moles/Vol] 4.3 mmol/L Normal 3.5 - 5.3 mmol/L [facility].; [facility], [facility]. Protein [Mass/Vol] 7.2 g/dL Normal 6.2 - 8.3 g/dL [facility], [facility].; [place] [employer] (RCDb) [facility], [facility]. Sodium [Moles/Vol] 140 mmol/L Normal 135 - 146 mmol/L [facility].; [facility], [facility]. Triglyceride [Mass/Vol] 162 mg/dL Abnormal H [facility].; [facility], [facility]. Urea nitrogen [Mass/Vol] 15 mg/dL Normal 7 - 25 mg/dL [facility].; [facility], [facility]. Urea nitrogen/Creatinine [Mass ratio] 13.8 mg/mg Normal 6 - 22 [facility].; [facility], [facility]. Laboratory - Chemistry and C hemistry - challengeon 12-20-2009 Albumin [Mass/Vol] 4.5 g/dL Normal 3.6 - 5.1 g/dL [facility].; [facility], [facility]. Albumin/Globulin [Mass ratio] 1.9 {ratio} Normal 1.0 - 2.1 [facility].; [facility], [facility]. ALP [Catalytic activity/Vol] 108 U/L Normal 33 - 130 U/L [facility].; [facility], [facility]. ALT [Catalytic activity/Vol] 25 U/L Normal 6 - 40 U/L [facility].; [facility], [facility]. AST [Catalytic activity/Vol] 23 U/L Normal 10 - 35 U/L [facility], [facility].; [facility], [facility]. Bilirubin [Mass/Vol] 1.5 mg/dL Abnormal 0.2 - 1 .2 mg/dL [facility].; [facility], [facility]. Calcium [Mass/Vol] 9.7 mg/dL Normal 8.6 - 10. 2 mg/dL [facility].; [facility], [facility]. Chloride [Moles/Vol] 104 mmol/L Normal 98 - 11 0 mmol/L [facility].; [facility], [facility]. Cholesterol [Mass/Vol] 197 mg/dL Normal 125 - 200 mg/dL [facility], [facility].; [facility], [facility]. Cholesterol in HDL [Mass/Vol] 55 mg/dL Normal [facility].; [facility], [facility]. Cholesterol in LDL [Mass/Vol] 111 mg/dL Normal [facility], [facility].; [facility], [facility]. Cholesterol.total/Mari sterol in HDL [Mass ratio] 3.6 {ratio} Normal [facility].; [place] [employer] (RCD[employer]) [facility], [facility]. CO2 [Moles/Vol] 25 mmol/L Normal 21 - 33 mmol/L [facility].; [facility], [facility]. Creatinine [Mass/Vol] 0.94 mg/dL Normal 0.60 - 1.18 mg/dL [facility], [facility].; [facility], [facility]. GFR/1.73 sq M.predicted among blacks MDRD (S/P/Bld) [Vol rate/Area] mL/min/{1.73_m2} Normal [facility], [facility].; [facility], [facility]. GFR/1.73 sq M.predicted MDRD (S/P/Bld) [Vol rate/Area] mL/min/{1.73_m2} Normal [facility], [facility].; [place] [employer], [facility]. Globulin (S) [Mass/Vol] 2.4 g/dL Normal 2.2 - 3.9 g/dL [facility], [facility].; [place] [employer] (RCD[employer]) [facility], [facility]. Glucose [Mass/Vol] 92 mg/dL Normal 65 - 99 mg/dL [facility], [facility].; [place] [employer] (RCD[employer]) [facility], [facility]. Potassium [Moles/Vol] 4.4 mmol/L Normal 3.5 - 5.3 mmol/L [facility].; [place] [employer] (RCD[employer]) [facility], [facility]. Protein [Mass/Vol] 6.9 g/dL Normal 6.2 - 8.3 g/dL [facility], [facility].; [place] [employer], [facility]. Sodium [Moles/Vol] 140 mmol/L Normal 135 - 146 mmol/L [facility].; [place] [employer], [facility]. Triglyceride [Mass/Vol] 154 mg/dL [facility]normal [facility].; [place] [employer] (RCD[employer]) [facility], [facility]. Urea nitrogen [Mass/Vol] 17 mg/dL Normal 7 - 25 mg/dL [facility].; [place] [employer] (RCD[employer]) [facility], [facility]. Urea nitrogen/Creatinine [Mass ratio] 17.7 mg/mg Normal 6 - 22 [facility].; [place] [employer], [facility]. Vital Signs Date Time Vital Sign Value Performing Clinician Facility 09-15-2024 09:15-0400 Body temperature 97.7 [degF] Dr. Moose Dempsey MD Work Phone: [phone] [address] 09-15-2024 09:15-0400 Diastolic blood pressure 71 mm[Hg] Dr. Moose Dempsey MD Work Phone: 6([phone])[phone] [place] [address] 09-15-2024 09:15-0400 Heart rate 71 /min Dr. Moose Dempsey MD Work Phone: 1([phone])[phone] [place] [address] 09-15-2024 09:15-0400 Respiratory rate 17 /min Dr. Moose Dempsey MD Work Phone: 5(643)775-942092 [place] [address] 09-15-2024 09:15-0400 SaO2% (BldA) [Mass fraction] 93 % Dr. Moose Dempsey MD Work Phone: 7([phone])[phone] [place] [address] 09-15-2024 09:15-0400 Systolic blood pressure 134 mm[Hg] Dr. Moose Dempsey MD Work Phone: [phone])016-261792 [place] [address] 09-15-2024 00:58-0400 Inhaled oxygen flow rate 2 L/min Dr. Moose Dempsey MD Work Phone: 3(644)[phone] [place] [address] 09-14-2024 14:07-0400 Body height 157.[address] Moose Dempsey MD Work Phone: 7(803)[phone] [place] [address] 09-14-2024 14:07-0400 Body mass index (BMI) [Ratio] 30.6 kg/m2 Dr. Moose Dempsey MD Work Phone: [phone])[phone] [place] [address] 09-14-2024 14:07-0400 Body weight [address] Moose Dempsey MD Work Phone: [phone](346)[phone] [place] [address] 09-01-2024 10:40-0400 Body height 157.[address] Moose Dempsey MD Work Phone: 8(344)[phone] [place] [address] 09-01-2024 10:40-0400 Body mass index (BMI) [Ratio] 30.3 kg/m2 Dr. Moose Dempsey MD Work Phone: 8([phone] [place] [address] 09-01-2024 10:40-0400 Body weight 75.[address] Moose Dempsey MD Work Phone: 8([phone])[phone] [place] [address] 08-30-2024 09:33-0400 Body height 157.48 cm Valerie Arias LPN [facility], [facility].; [facility] 08-30-2024 09:33-0400 Body mass index (BMI) [Ratio] 30.91 kg/m2 Valerie Arias LPN [facility], [facility].; [facility] 08-30-2024 09:33-0400 Body surface area Derived from formula 1.78 m2 Valerie Arias LPN [facility], [facility].; [facility] 08-30-2024 09:33-0400 Body weight 76.66 kg Valerie Arias [facility].; [facility] 08-30-2024 09:33-0400 Diastolic blood pressure 81 mm[Hg] Valerie Arias LPN [facility].; [facility], [facility]. Comment on above: Patient Position: Sitting; Cuff Location : Left Arm; Cuff Size: Standard 08-30-2024 09:33-0400 Heart rate 79 /min Valerie Arias [facility].; [facility], [facility]. Comment on above: Pattern: Regular 08-30-2024 09:33-0400 Systolic blood pressure 129 mm[Hg] Valerie Arias UTILITY INSPECTOR [facility].; [facility], [facility]. Comment on above: Patient Position: Sitting; Cuff Location : Left Arm; Cuff Size: Standard 07-28-2024 13:21-0400 Body height 157.[address] Moose Dempsey MD Work Phone: [facility] 07-28-2024 13:21-0400 Body mass index (BMI) [Ratio] 31.1 kg/m2 Dr. Moose Dempsey MD Work Phone: [facility] 07-28-2024 13:21-0400 Body weight 77.[address] Moose Dempsey MD Work Phone: [facility] 04-26-2024 09:49-0500 Body height 157.48 cm Manny Huitron [facility], [facility].; [facility], [facility]. 04-26-2024 09:49-0500 Body mass index (BMI) [Ratio] 31.64 kg/m2 Manny Huitron LPN [facility], [facility]. 04-26-2024 09:49-0500 Body surface area Derived from formula 1.8 m2 Manny Huitron LPN [facility] 04-26-2024 09:49-0500 Body weight 78.47 kg Manny Huitron UTILITY INSPECTOR [facility], [facility].; [facility] 04-26-2024 09:49-0500 Diastolic blood pressure 82 mm[Hg] Manny Huitron [facility], [facility].; [facility], [facility]. Comment on above: Patient Position: Sitting; Cuff Location : Left Arm; Cuff Size: Standard 04-26-2024 09:49-0500 Heart rate 73 /min Manny Huitron UTILITY INSPECTOR [facility], [facility].; [facility] Comment on above: Pattern: Regular 04-26-2024 09:49-0500 Systolic blood pressure 135 mm[Hg] Manny Huitron LPN [facility], [facility].; [facility] Comment on above: Patient Position: Sitting; Cuff Location : Left Arm; Cuff Size: Standard 10-28-2023 08:44-0400 Body height 157.48 cm Moose Dempsey MD Work Phone: [facility], [facility].; [place] [employer] (RCDb) [facility], [facility]. 10-28-2023 08:44-0400 Body mass index (BMI) [Ratio] 31.09 kg/m2 Moose Dempsey MD Work Phone: [facility], [facility].; [place] [employer] (RCDb) [facility], [facility]. 10-28-2023 08:44-0400 Body surface area Derived from formula 1.78 m2 Moose Dempsey MD Work Phone: [facility], [facility].; [place] [employer] (RCDb) [facility] 10-28-2023 08:44-0400 Body weight 77.11 kg Moose Dempsey MD Work Phone: [facility], [facility].; [place] [employer] (RCDb) [facility], [employer]. 10-28-2023 08:44-0400 Diastolic blood pressure 80 mm[Hg] Moose Dempsey MD Work Phone: [facility].; [employer]. Comment on above: Patient Position: Sitting; Cuff Location : Left Arm; Cuff Size: Standard 10-28-2023 08:44-0400 Heart rate 80 /min Moose Dempsey MD Work Phone: [place] [employer] (RCD[employer]) [facility].; [employer]. Comment on above: Pattern: Regular 10-28-2023 08:44-0400 Systolic blood pressure 132 mm[Hg] Moose Dempsey MD Work Phone: [place] [employer] (RCDb) [facility].; [employer]. Comment on above: Patient Position: Sitting; Cuff Location : Left Arm; Cuff Size: Standard 08-10-2023 13:26-0400 Body height 157.48 cm Valerie Arias LPN [facility], [facility].; [employer], [facility]. 08-10-2023 13:26-0400 Body mass index (BMI) [Ratio] 31.64 kg/m2 Valerie Arias LPN [place] [employer] (RCDb) [facility].; [employer], [employer]. 08-10-2023 13:26-0400 Body surface area Derived from formula 1.8 m2 Valerie Arias LPN [facility], [facility].; [employer], [employer]. 08-10-2023 13:26-0400 Body weight 78.47 kg Valerie Arias LPN [facility], [facility].; [employer], [facility]. 08-10-2023 13:26-0400 Diastolic blood pressure 82 mm[Hg] Valerie Arias LPN [facility], [facility].; [employer]. Comment on above: Patient Position: Sitting; Cuff Location : Left Arm; Cuff Size: Standard 08-10-2023 13:26-0400 Heart rate 97 /min Valerie Arias LPN [place] [employer] (RCDb) [facility], [facility].; [employer], [employer]. Comment on above: Pattern: Regular 08-10-2023 13:26-0400 Systolic blood pressure 158 mm[Hg] Valerie Arias LPN [place] [employer] (RCD[employer]) [facility], [facility].; [employer]. Comment on above: Patient Position: Sitting; Cuff Location : Left Arm; Cuff Size: Standard 04-28-2023 09:21-0500 Diastolic blood pressure 70 mm[Hg] Moose Dempsey MD Work Phone: [place] [employer]. Comment on above: Patient Position: Sitting; Cuff Location : Left Arm; Cuff Size: Standard 04-28-2023 09:21-0500 Systolic blood pressure 112 mm[Hg] Moose Dempsey MD Work Phone: [place] [employer].; [employer]. Comment on above: Patient Position: Sitting; Cuff Location : Left Arm; Cuff Size: Standard 04-28-2023 07:50-0500 Body height 157.48 cm Moose Dempsey MD Work Phone: [place] [employer].; [employer]. 04-28-2023 07:50-0500 Body mass index (BMI) [Ratio] 31.09 kg/m2 Moose Dempsey MD Work Phone: [place] [employer].; [employer]. 04-28-2023 07:50-0500 Body surface area Derived from formula 1.78 m2 Moose Dempsey MD Work Phone: [place] [employer].; [employer]. 04-28-2023 07:50-0500 Body weight 77.11 kg Moose Dempsey MD Work Phone: [employer].; [employer]. 04-28-2023 07:50-0500 Diastolic blood pressure 80 mm[Hg] Moose Dempsey MD Work Phone: [employer].; [employer]. Comment on above: Patient Position: Sitting; Cuff Location : Left Arm; Cuff Size: Large 04-28-2023 07:50-0500 Heart rate 79 /min Moose Dempsey MD Work Phone: [employer].; [employer]. Comment on above: Pattern: Regular 04-28-2023 07:50-0500 Systolic blood pressure 144 mm[Hg] Moose Dempsey MD Work Phone: [facility], [facility].; [employer] [facility]. Comment on above: Patient Position: Sitting; Cuff Location : Left Arm; Cuff Size: Large 02-02-2023 13:29-0500 Body height 157.48 cm Sydnie Boyle [facility] [employer] (RCDb) [facility], [employer]. 02-02-2023 13:29-0500 Body mass index (BMI) [Ratio] 30.73 kg/m2 Sydnie Boyle [facility] [employer] (RCDb) [facility], [employer]. 02-02-2023 13:29-0500 Body surface area Derived from formula 1.78 m2 [facility] [employer] 02-02-2023 13:29-0500 Body weight 76.2 kg Libra Tamar [facility] [employer], [employer]. 02-02-2023 13:29-0500 Diastolic blood pressure 83 mm[Hg] Sydnie Boyle [facility] [employer], [employer]. Comment on above: Patient Position: Sitting; Cuff Location : Left Arm; Cuff Size: Large 02-02-2023 13:29-0500 Heart rate 71 /min Libra Stuckey [facility] [employer], [employer]. Comment on above: Pattern: Regular 02-02-2023 13:29-0500 Systolic blood pressure 150 mm[Hg] Sydnie Boyle [facility] [employer], [employer]. Comment on above: Patient Position: Sitting; Cuff Location : Left Arm; Cuff Size: Large 10-21-2022 10:54-0400 Body height 157.48 cm Moose Dempsey MD Work Phone: [facility], [employer].; [employer]. 10-21-2022 10:54-0400 Body mass index (BMI) [Ratio] 31.09 kg/m2 Moose Dempsey MD Work Phone: [facility], [employer].; [employer]. 10-21-2022 10:54-0400 Body surface area Derived from formula 1.78 m2 Moose Dempsey MD Work Phone: [employer].; [employer] 10-21-2022 10:54-0400 Body weight 77.11 kg Moose Dempsey MD Work Phone: [employer].; [employer]. 10-21-2022 10:54-0400 Diastolic blood pressure 76 mm[Hg] Moose Dempsey MD Work Phone: [employer].; [employer]. Comment on above: Patient Position: Sitting; Cuff Location : Left Arm; Cuff Size: Large 10-21-2022 10:54-0400 Heart rate 73 /min Moose Dempsey MD Work Phone: [employer].; [employer]. Comment on above: Pattern: Regular 10-21-2022 10:54-0400 Systolic blood pressure 128 mm[Hg] Moose Dempsey MD Work Phone: [employer].; [employer]. Comment on above: Patient Position: Sitting; Cuff Location : Left Arm; Cuff Size: Large 04-01-2022 09:48-0500 Body height 157.48 cm Valerie Reynolds MA [employer].; [employer]. 04-01-2022 09:48-0500 Body mass index (BMI) [Ratio] 30.54 kg/m2 Valerie Reynolds MA [employer].; [employer]. 04-01-2022 09:48-0500 Body surface area Derived from formula 1.77 m2 Valerie Reynolds MA [employer].; [employer]. 04-01-2022 09:48-0500 Body weight 75.75 kg Valerie Reynolds MA [employer].; [employer]. 04-01-2022 09:48-0500 Diastolic blood pressure 85 mm[Hg] Valerie Reynolds MA [employer].; [employer]. Comment on above: Patient Position: Sitting; Cuff Location : Left Arm; Cuff Size: Standard 04-01-2022 09:48-0500 Heart rate 73 /min Valerie Reynolds MA [facility].; [facility]. Comment on above: Pattern: Regular 04-01-2022 09:48-0500 Systolic blood pressure 133 mm[Hg] Valerie Reynolds MA [facility].; [place] [employer] (RCDb) [facility]. Comment on above: Patient Position: Sitting; Cuff Location : Left Arm; Cuff Size: Standard 09-24-2021 10:47-0400 Body height 157.48 cm Valerie Arias LPN [facility].; [facility]. 09-24-2021 10:47-0400 Body mass index (BMI) [Ratio] 30.19 kg/m2 Valerie Arias LPN [facility].; [facility]. 09-24-2021 10:47-0400 Body surface area Derived from formula 1.76 m2 Valerie Arias LPN [facility].; [facility], [facility]. 09-24-2021 10:47-0400 Body weight 74.87 kg Valerie Arias LPN [facility].; [facility], [facility]. 09-24-2021 10:47-0400 Diastolic blood pressure 65 mm[Hg] Valerie Arias LPN [facility].; [employer] [facility], [employer]. Comment on above: Patient Position: Sitting; Cuff Location : Left Arm; Cuff Size: Standard 09-24-2021 10:47-0400 Heart rate 70 /min Valerie Arias LPN [facility].; [employer]. Comment on above: Pattern: Regular 09-24-2021 10:47-0400 Systolic blood pressure 118 mm[Hg] Valerie Arias LPN [facility].; [place] [employer] (RCDb) [facility]. Comment on above: Patient Position: Sitting; Cuff Location : Left Arm; Cuff Size: Standard 03-20-2021 09:01-0500 Body height 157.48 cm Moose Dempsey MD Work Phone: [facility].; [employer]. 03-20-2021 09:01-0500 Body mass index (BMI) [Ratio] 30.54 kg/m2 Moose Dempsey MD Work Phone: [employer].; [employer]. 03-20-2021 09:01-0500 Body surface area Derived from formula 1.77 m2 Moose Dempsey MD Work Phone: [employer].; [employer]. 03-20-2021 09:01-0500 Body weight 75.75 kg Moose Dempsey MD Work Phone: [employer].; [employer]. 03-20-2021 09:01-0500 Diastolic blood pressure 80 mm[Hg] Moose Dempsey MD Work Phone: [employer].; [employer]. Comment on above: Patient Position: Sitting; Cuff Location : Right Arm; Cuff Size: Standard 03-20-2021 09:01-0500 Heart rate 84 /min Moose Dempsey MD Work Phone: [employer].; [employer]. Comment on above: Pattern: Regular 03-20-2021 09:01-0500 Systolic blood pressure 142 mm[Hg] Moose Dempsey MD Work Phone: [employer].; [employer]. Comment on above: Patient Position: Sitting; Cuff Location : Right Arm; Cuff Size: Standard 09-18-2020 10:07-0400 Body height 157.48 cm Moose Dempsey MD Work Phone: [employer].; [employer] 09-18-2020 10:07-0400 Body mass index (BMI) [Ratio] 29.81 kg/m2 Moose Dempsey MD Work Phone: [employer].; [employer] 09-18-2020 10:07-0400 Body surface area Derived from formula 1.75 m2 Moose Dempsey MD Work Phone: [employer].; [employer]. 09-18-2020 10:07-0400 Body weight 73.94 kg Moose Dempsey MD Work Phone: [facility].; [employer] 09-18-2020 10:07-0400 Diastolic blood pressure 80 mm[Hg] Mosoe Dempsey MD Work Phone: [facility].; [employer]. Comment on above: Patient Position: Sitting; Cuff Location : Left Arm; Cuff Size: Standard 09-18-2020 10:07-0400 Heart rate 79 /min Moose Dempsey MD Work Phone: [facility].; [employer]. Comment on above: Pattern: Regular 09-18-2020 10:07-0400 Systolic blood pressure 132 mm[Hg] Moose Dempsey MD Work Phone: [facility].; [employer]. Comment on above: Patient Position: Sitting; Cuff Location : Left Arm; Cuff Size: Standard 03-20-2020 08:48-0500 Body height 157.48 cm Libra Tamar [facility] [employer] 03-20-2020 08:48-0500 Body mass index (BMI) [Ratio] 29.45 kg/m2 [facility] Tamar [facility] [employer] 03-20-2020 08:48-0500 Body surface area Derived from formula 1.74 m2 [facility] Tamar [facility], [facility].; [employer], [employer]. 03-20-2020 08:48-0500 Body weight 73.03 kg [facility] Tamar [facility] [employer], [employer]. 03-20-2020 08:48-0500 Diastolic blood pressure 81 mm[Hg] Libra [place] UTILITY INSPECTOR [facility] [employer], [employer]. Comment on above: Patient Position: Sitting; Cuff Location : Left Arm; Cuff Size: Large 03-20-2020 08:48-0500 Heart rate 80 /min Sydnie Boyle LPN [facility] [employer] [facility], [employer]. Comment on above: Pattern: Regular 03-20-2020 08:48-0500 Systolic blood pressure 130 mm[Hg] Sydnie Boyle LPN [facility] [employer] [facility], [employer]. Comment on above: Patient Position: Sitting; Cuff Location : Left Arm; Cuff Size: Large 09-13-2019 08:08-0400 Body height 157.48 cm Sydnie Boyle [facility] [place] [employer] (RCD[employer]) [facility], [employer]. 09-13-2019 08:08-0400 Body mass index (BMI) [Ratio] 28.72 kg/m2 Sydnie Boyle [facility] [place] [employer] (RCD[employer]) [facility] 09-13-2019 08:08-0400 Body surface area Derived from formula 1.72 m2 Sydnie Boyle [facility] [place] [employer] (RCDb) [facility], [employer]. 09-13-2019 08:08-0400 Body weight 71.22 kg Sydnie Boyle [facility], [facility].; [employer] [facility], [place]. 09-13-2019 08:08-0400 Diastolic blood pressure 82 mm[Hg] Sydnie Boyle [facility], [facility].; [employer] [facility], [place]. Comment on above: Patient Position: Sitting; Cuff Location : Left Arm; Cuff Size: Large 09-13-2019 08:08-0400 Heart rate 76 /min Sydnie Boyle UTILITY INSPECTOR [facility] [employer], [place]. Comment on above: Pattern: Regular 09-13-2019 08:08-0400 Systolic blood pressure 130 mm[Hg] Sydnie Boyle [facility] [employer], [place]. Comment on above: Patient Position: Sitting; Cuff Location : Left Arm; Cuff Size: Large 08-01-2019 09:21-0400 Body height 157.48 cm Chrissie Vasquez RN [facility], [place].; [employer] (RCDb) [facility], [place]. 08-01-2019 09:21-0400 Body mass index (BMI) [Ratio] 29.45 kg/m2 Chrissie Vasquez RN [facility], [facility].; [facility], [facility]. 08-01-2019 09:21-0400 Body surface area Derived from formula 1.74 m2 Chrissie Vasquez RN [facility], [facility].; [employer] 08-01-2019 09:21-0400 Body temperature 97.6 [degF] Chrissie Vasquez RN [facility], [facility].; [employer] [facility], [place]. Comment on above: Method: Tympanic 08-01-2019 09:21-0400 Body weight 73.03 kg Chrissie Vasquez RN [facility], [facility].; [facility] [facility], [facility]. 08-01-2019 09:21-0400 Diastolic blood pressure 83 mm[Hg] Chrissie Vasquez RN [facility], [facility].; [employer], [place]. Comment on above: Patient Position: Sitting; Cuff Location : Left Arm; Cuff Size: Standard 08-01-2019 09:21-0400 Heart rate 81 /min Chrissie Vasquez RN [facility], [facility].; [employer], [place]. Comment on above: Pattern: Regular 08-01-2019 09:21-0400 Systolic blood pressure 150 mm[Hg] Chrissie Vasquez RN [facility], [facility].; [employer], [place]. Comment on above: Patient Position: Sitting; Cuff Location : Left Arm; Cuff Size: Standard 03-29-2019 09:56-0500 Body height 157.48 cm Sydnie Boyle UTILITY INSPECTOR [facility], [facility].; [employer], [place]. 03-29-2019 09:56-0500 Body mass index (BMI) [Ratio] 29.45 kg/m2 Libra Tamar UTILITY INSPECTOR [facility].; [employer], [employer] 03-29-2019 09:56-0500 Body surface area Derived from formula 1.74 m2 Libra Tamar UTILITY INSPECTOR [place] Related [employer] (RCDb) [facility], [facility].; [employer] 03-29-2019 09:56-0500 Body weight 73.03 kg Libra Tamar UTILITY INSPECTOR [place] [facility].; [employer] [facility], [facility] 03-29-2019 09:56-0500 Diastolic blood pressure 81 mm[Hg] Sydnie Boyle UTILITY INSPECTOR [facility].; [employer], [employer] Comment on above: Patient Position: Sitting; Cuff Location : Left Arm; Cuff Size: Large 03-29-2019 09:56-0500 Heart rate 80 /min Sydnie Boyle UTILITY INSPECTOR [facility] [employer] Comment on above: Pattern: Regular 03-29-2019 09:56-0500 Systolic blood pressure 118 mm[Hg] Sydnie Boyle UTILITY INSPECTOR [place] Related [employer] (RCD[employer]) [facility] [employer], [employer] Comment on above: Patient Position: Sitting; Cuff Location : Left Arm; Cuff Size: Large 03-11-2019 08:53-0500 Body height 157.48 cm Ina Ghulam UTILITY INSPECTOR [place] Related [employer] (RCD[employer]) [facility], [facility].; [employer], [employer] 03-11-2019 08:53-0500 Body mass index (BMI) [Ratio] 29.26 kg/m2 Ina Irisugg UTILITY INSPECTOR [place] Related Content [employer] (RCDb) [facility], [facility].; [employer], [employer] 03-11-2019 08:53-0500 Body surface area Derived from formula 1.74 m2 Ina Parmar UTILITY INSPECTOR [place] Related Content [employer] (RCDb) [facility], [facility].; [employer] [facility] 03-11-2019 08:53-0500 Body weight 72.58 kg Inaleena Simmonsnicholas UTILITY INSPECTOR [place] Related Content Database (RCDb) [facility], [facility].; [employer] 03-11-2019 08:53-0500 Diastolic blood pressure 80 mm[Hg] Ina Irisugg UTILITY INSPECTOR [place] Related Content [employer] (RCD[employer]) [facility] [employer], [place]. Comment on above: Patient Position: Sitting; Cuff Location : Left Arm; Cuff Size: Standard 03-11-2019 08:53-0500 Heart rate 72 /min Inaleena Simmonsugg UTILITY INSPECTOR [place] Related Content [employer] (RCDb) [facility], [facility].; [employer], [employer] Comment on above: Pattern: Regular 03-11-2019 08:53-0500 Systolic blood pressure 123 mm[Hg] Ina Zaugg UTILITY INSPECTOR [place] [employer], [employer].; [employer], [employer] Comment on above: Patient Position: Sitting; Cuff Location : Left Arm; Cuff Size: Standard 08-27-2018 07:13-0400 Body height 157.48 cm Chrissie Vasquez RN [employer], [place].; [employer]. 08-27-2018 07:13-0400 Body mass index (BMI) [Ratio] 29.26 kg/m2 Chrissie Vasquez RN [employer], [employer] 08-27-2018 07:13-0400 Body surface area Derived from formula 1.74 m2 Chrissie Vasquez RN [employer], [place].; [employer]. 08-27-2018 07:13-0400 Body weight 72.58 kg Chrissie Vasquez RN [employer].; [employer]. 08-27-2018 07:13-0400 Diastolic blood pressure 78 mm[Hg] Chrissie Vasquez RN [employer].; [employer]. Comment on above: Patient Position: Sitting; Cuff Location : Right Arm; Cuff Size: Standard 08-27-2018 07:13-0400 Heart rate 71 /min Chrissie Vasquez RN [employer].; [employer]. Comment on above: Pattern: Regular 08-27-2018 07:13-0400 Systolic blood pressure 129 mm[Hg] Chrissie Vasquez RN [employer], [place].; [employer]. Comment on above: Patient Position: Sitting; Cuff Location : Right Arm; Cuff Size: Standard 03-16-2018 11:17-0500 Body height 157.48 cm Sydnie Boyle LPN [employer], [employer]. 03-16-2018 11:17-0500 Body mass index (BMI) [Ratio] 30.36 kg/m2 Sydnie Boyle UTILITY INSPECTOR [employer], [employer], [employer] 03-16-2018 11:17-0500 Body surface area Derived from formula 1.77 m2 Sydnie Boyle UTILITY INSPECTOR [employer], [employer] 03-16-2018 11:17-0500 Body weight 75.3 kg Sydnie Boyle UTILITY INSPECTOR [place] Related Content [employer] (RCDb) [facility], [facility].; [employer], [place]. 03-16-2018 11:17-0500 Diastolic blood pressure 81 mm[Hg] [facility] [employer], [employer] Comment on above: Patient Position: Sitting; Cuff Location : Left Arm; Cuff Size: Large 03-16-2018 11:17-0500 Heart rate 105 /min Sydnie Boyle [facility] Related Content Database (RCDb) [facility] [employer], [employer] Comment on above: Pattern: Regular 03-16-2018 11:17-0500 Systolic blood pressure 150 mm[Hg] Syd[facility]le [facility] [employer], [place]. Comment on above: Patient Position: Sitting; Cuff Location : Left Arm; Cuff Size: Large 02-26-2018 08:35-0500 Body height 157.48 cm Michelle Solorio [facility] Related Content Database (RCDb) [facility], [facility].; [employer], [employer] 02-26-2018 08:35-0500 Body mass index (BMI) [Ratio] 30.36 kg/m2 Michelle Shannon Lyndsey [facility] [employer], [employer] 02-26-2018 08:35-0500 Body surface area Derived from formula 1.77 m2 Michelle Solorio [facility] Related Content Database (RCDb) [facility], [facility].; [employer], [employer] 02-26-2018 08:35-0500 Body weight 75.3 kg Michelle Solorio [facility] [employer] 02-26-2018 08:35-0500 Diastolic blood pressure 82 mm[Hg] Michelle Mirtha Solorio [facility] [employer], [employer] Comment on above: Patient Position: Sitting; Cuff Location : Left Arm; Cuff Size: Standard 02-26-2018 08:35-0500 Heart rate 80 /min Michelle Solorio UTILITY INSPECTOR [employer], [employer] Comment on above: Pattern: Regular 02-26-2018 08:35-0500 Systolic blood pressure 123 mm[Hg] Michelle Solorio [facility] [employer] (RCDb) [facility] Comment on above: Patient Position: Sitting; Cuff Location : Left Arm; Cuff Size: Standard 08-25-2017 07:54-0400 Body height 157.48 cm Sydnie Boyle UTILITY INSPECTOR [facility] [employer] (RCDb) [facility], [facility] 08-25-2017 07:54-0400 Body mass index (BMI) [Ratio] 30.36 kg/m2 Sydnie Boyle [facility].; [place] Related Content Database (RCDb) [facility], [facility] 08-25-2017 07:54-0400 Body surface area Derived from formula 1.77 m2 Sydnie Bolye [facility].; [employer], [employer] 08-25-2017 07:54-0400 Body weight 75.3 kg Sydnie Boyle UTILITY INSPECTOR [facility].; [employer], [employer] 08-25-2017 07:54-0400 Diastolic blood pressure 79 mm[Hg] Sydnie Boyle [facility] [employer], [employer] Comment on above: Patient Position: Sitting; Cuff Location : Left Arm; Cuff Size: Large 08-25-2017 07:54-0400 Heart rate 91 /min Sydnie Boyle [facility] [employer], [employer] Comment on above: Pattern: Regular 08-25-2017 07:54-0400 Systolic blood pressure 115 mm[Hg] Sydnie Boyle [facility].; [employer], [employer] Comment on above: Patient Position: Sitting; Cuff Location : Left Arm; Cuff Size: Large 05-05-2017 09:26-0500 Body height 157.48 cm Sydnie Boyle [facility] [employer] 05-05-2017 09:26-0500 Body mass index (BMI) [Ratio] 30.54 kg/m2 Sydnie Boyle [facility].; [employer] 05-05-2017 09:26-0500 Body surface area Derived from formula 1.77 m2 Sydnie Boyle [facility].; [employer], [employer] 05-05-2017 09:26-0500 Body weight 75.75 kg Sydnie Boyle LPN [facility].; [employer], [employer] 05-05-2017 09:26-0500 Diastolic blood pressure 83 mm[Hg] Sydnie Boyle LPN [facility].; [employer], [employer] Comment on above: Patient Position: Sitting; Cuff Location : Left Arm; Cuff Size: Large 05-05-2017 09:26-0500 Heart rate 84 /min Sydnie Boyle LPN [place] Related Content Database (RCDb) [facility] [employer], [employer] Comment on above: Pattern: Regular 05-05-2017 09:26-0500 Systolic blood pressure 124 mm[Hg] Sydnie Boyle LPN [place] Related [employer] (RCDb) [facility].; [employer], [employer] Comment on above: Patient Position: Sitting; Cuff Location : Left Arm; Cuff Size: Large 02-18-2017 11:03-0500 Body height 157.48 cm Sydnei Boyle UTILITY INSPECTOR [place] Related Content Database (RCDb) [facility].; [employer], [employer] 02-18-2017 11:03-0500 Body mass index (BMI) [Ratio] 29.81 kg/m2 Sydnie Boyle [facility] Related Content Database (RCDb) [facility].; [employer], [employer] 02-18-2017 11:03-0500 Body surface area Derived from formula 1.75 m2 Sydnie Boyle UTILITY INSPECTOR [place] Related Content Database (RCDb) [facility].; [employer], [employer] 02-18-2017 11:03-0500 Body weight 73.94 kg Sydnie Boyle LPN [place] Related Content Database (RCDb) [facility].; [employer], [employer] 02-18-2017 11:03-0500 Diastolic blood pressure 79 mm[Hg] Sydnie Boyle LPN [place] [employer] (RCDb) [facility].; [employer], [place]. Comment on above: Patient Position: Sitting; Cuff Location : Left Arm; Cuff Size: Large 02-18-2017 11:03-0500 Heart rate 82 /min Sydnie Boyle LPN [place] Related Content Database (RCDb) [facility].; [employer] Comment on above: Pattern: Regular 02-18-2017 11:03-0500 Systolic blood pressure 121 mm[Hg] Sydnie Boyle LPN [facility].; [employer], [place]. Comment on above: Patient Position: Sitting; Cuff Location : Left Arm; Cuff Size: Large 07-15-2016 08:05-0400 Body height 157.48 cm Sydnie Boyle LPN [facility] [employer], [employer] 07-15-2016 08:05-0400 Body mass index (BMI) [Ratio] 30.73 kg/m2 Sydnie Boyle LPN [place] Related Content Database (RCDb) [facility] [employer], [place]. 07-15-2016 08:05-0400 Body surface area Derived from formula 1.78 m2 Sydnie Boyle [facility] Related Content Database (RCDb) [facility].; [employer], [place]. 07-15-2016 08:05-0400 Body weight 76.2 kg Sydnie Boyle UTILITY INSPECTOR [place] Related Content Database (RCDb) [facility].; [employer], [place]. 07-15-2016 08:05-0400 Diastolic blood pressure 84 mm[Hg] Sydnie Boyle UTILITY INSPECTOR [place] Related Content Database (RCDb) [facility] [employer], [place]. Comment on above: Patient Position: Sitting; Cuff Location : Left Arm; Cuff Size: Large 07-15-2016 08:05-0400 Heart rate 73 /min Sydnie Boyle LPN [place] Related [employer] (RCDb) [facility] [employer], [employer] Comment on above: Pattern: Regular 07-15-2016 08:05-0400 Systolic blood pressure 133 mm[Hg] Sydnie Boyle UTILITY INSPECTOR [place] Related Content Database (RCDb) [facility].; [employer]. Comment on above: Patient Position: Sitting; Cuff Location : Left Arm; Cuff Size: Large 01-15-2016 08:35-0500 Body height 157.48 cm Sydnie Boyle [facility] Related Content Database (RCDb) [facility] [employer], [place]. 01-15-2016 08:35-0500 Body mass index (BMI) [Ratio] 30.73 kg/m2 Sydnie Boyle [facility] Related Content Database (RCDb) [facility] [employer], [place]. 01-15-2016 08:35-0500 Body surface area Derived from formula 1.78 m2 Sydnie Boyle UTILITY INSPECTOR [place] Related Content Database (RCDb) [facility].; [employer], [employer] 01-15-2016 08:35-0500 Body weight 76.2 kg Sydnie Boyle UTILITY INSPECTOR [place] Related Content Database (RCDb) [facility] [employer], [employer] 01-15-2016 08:35-0500 Diastolic blood pressure 85 mm[Hg] Sydnie Boyle [facility] Related Content Database (RCDb) [facility] [employer], [employer] Comment on above: Patient Position: Sitting; Cuff Location : Left Arm; Cuff Size: Large 01-15-2016 08:35-0500 Heart rate 71 /min Sydnie Boyle [facility] Related Content Database (RCDb) [facility] [employer], [place]. Comment on above: Pattern: Regular 01-15-2016 08:35-0500 Systolic blood pressure 137 mm[Hg] Sydnie Boyle [facility] Related Content Database (RCDb) [facility] [employer], [employer] Comment on above: Patient Position: Sitting; Cuff Location : Left Arm; Cuff Size: Large 12-22-2015 09:49-0400 Body height 157.48 cm Michelle Solorio LPN [place] Related Content Database (RCDb) [facility] [employer], [employer] 12-22-2015 09:49-0400 Body mass index (BMI) [Ratio] 31.09 kg/m2 Michelle Solorio [facility] Related Content Database (RCDb) [facility] [employer], [employer] 12-22-2015 09:49-0400 Body surface area Derived from formula 1.78 m2 Michelle Solorio UTILITY INSPECTOR [place] Related Content Database (RCDb) [facility] [employer], [employer] 12-22-2015 09:49-0400 Body temperature 97.5 [degF] Michelle Solorio [facility] [employer], [place]. Comment on above: Method: Tympanic 12-22-2015 09:49-0400 Body weight 77.11 kg Michelle Solorio UTILITY INSPECTOR [place] Related Content Database (RCDb) [facility] [employer] 12-22-2015 09:49-0400 Diastolic blood pressure 85 mm[Hg] Michelle Solorio [facility] Related Content Database (RCDb) [facility].; [employer]. Comment on above: Patient Position: Sitting; Cuff Location : Left Arm; Cuff Size: Standard 12-22-2015 09:49-0400 Heart rate 76 /min Michelle Solorio [facility] [employer]. Comment on above: Pattern: Regular 12-22-2015 09:49-0400 Inhaled oxygen concentration 20 % Michelle Shannon Lyndsey [facility] Related Content Database (RCDb) [facility]. Comment on above: Room air 12-22-2015 09:49-0400 Inhaled oxygen concentration 21 % Michelle Nuñezach UTILITY INSPECTOR [employer].; [employer]. Comment on above: Room air 12-22-2015 09:49-0400 SaO2% (BldA) [Mass fraction] 97 % Michelle Nuñezach [facility] [employer]. 12-22-2015 09:49-0400 Systolic blood pressure 138 mm[Hg] Michelle Solorio [facility] [employer]. Comment on above: Patient Position: Sitting; Cuff Location : Left Arm; Cuff Size: Standard 07-10-2015 13:52-0400 Body height 157.48 cm Abine Work Phone: [employer].; [employer]. 07-10-2015 13:52-0400 Body mass index (BMI) [Ratio] 30.18 kg/m2 Abine Work Phone: [employer].; [employer]. 07-10-2015 13:52-0400 Body surface area Derived from formula 1.76 m2 Abine Work Phone: [employer].; [employer] 07-10-2015 13:52-0400 Body weight 74.84 kg Abine Work Phone: [employer].; [employer] 07-10-2015 13:52-0400 Diastolic blood pressure 82 mm[Hg] DEXMA UTILITY INSPECTOR Work Phone: [employer].; [employer]. Comment on above: Patient Position: Sitting; Cuff Location : Left Arm; Cuff Size: Large 07-10-2015 13:52-0400 Heart rate 77 /min Glenna Bill [facility] Work Phone: [employer]. Comment on above: Pattern: Regular 07-10-2015 13:52-0400 Systolic blood pressure 118 mm[Hg] Glenna [facility] Work Phone: [employer]. Comment on above: Patient Position: Sitting; Cuff Location : Left Arm; Cuff Size: Large 05-14-2015 11:32-0400 Body temperature 98.3 [degF] Chrissie Vasquez RN [employer]. Comment on above: Method: Tympanic 05-14-2015 11:32-0400 Body weight 74.84 kg Chrissie Vasquez RN [employer].; [employer]. 05-14-2015 11:32-0400 Diastolic blood pressure 85 mm[Hg] Chrissie Vasquez RN [employer].; [employer]. Comment on above: Patient Position: Sitting; Cuff Location : Right Arm; Cuff Size: Standard 05-14-2015 11:32-0400 Heart rate 69 /min Chrissie Vasquez RN [employer].; [employer]. Comment on above: Pattern: Regular 05-14-2015 11:32-0400 Systolic blood pressure 136 mm[Hg] Chrissie Vasquez RN [employer].; [employer] Comment on above: Patient Position: Sitting; Cuff Location : Right Arm; Cuff Size: Standard 01-09-2015 08:07-0500 Body height 158.75 cm Glenna [facility] Work Phone: [employer] 01-09-2015 08:07-0500 Body mass index (BMI) [Ratio] 29.59 kg/m2 Glenna Khan LPN Work Phone: [employer].; [employer]. 01-09-2015 08:07-0500 Body surface area Derived from formula 1.77 m2 Glenna Khan LPN Work Phone: [employer].; [employer]. 01-09-2015 08:07-0500 Body weight 74.56 kg Glenna Khan LPN Work Phone: [employer].; [employer]. 01-09-2015 08:07-0500 Diastolic blood pressure 79 mm[Hg] Glenna Khan LPN Work Phone: [employer]; [employer]. Comment on above: Patient Position: Sitting; Cuff Location : Left Arm; Cuff Size: Standard 01-09-2015 08:07-0500 Heart rate 71 /min Glenna Bill LPN Work Phone: [employer]; [employer]. Comment on above: Pattern: Regular 01-09-2015 08:07-0500 Systolic blood pressure 122 mm[Hg] Glenna Khan LPN Work Phone: [employer]; [employer]. Comment on above: Patient Position: Sitting; Cuff Location : Left Arm; Cuff Size: Standard 07-04-2014 10:12-0400 Body height 158.75 cm Chrissie Vasquez RN [place] [employer] 07-04-2014 10:12-0400 Body mass index (BMI) [Ratio] 29.05 kg/m2 Chrissie Vasquez RN [place] [employer]. 07-04-2014 10:12-0400 Body surface area Derived from formula 1.76 m2 Chrissie Vasquez RN [place] [employer]. 07-04-2014 10:12-0400 Body weight 73.2 kg Chrissie Vasquez RN [place] [employer]. 07-04-2014 10:12-0400 Diastolic blood pressure 80 mm[Hg] Chrissie Vasquez RN [employer].; [employer]. Comment on above: Patient Position: Sitting; Cuff Location : Left Arm; Cuff Size: Standard 07-04-2014 10:12-0400 Heart rate 67 /min Chrissie Vasquez RN [place] [employer]. Comment on above: Pattern: Regular 07-04-2014 10:12-0400 Systolic blood pressure 134 mm[Hg] Chrissie Vasquez RN [employer]. Comment on above: Patient Position: Sitting; Cuff Location : Left Arm; Cuff Size: Standard 01-03-2014 09:24-0500 Body height 158.75 cm Tami Gil RN Work Phone: [employer]. 01-03-2014 09:24-0500 Body mass index (BMI) [Ratio] 28.8 kg/m2 Tami Gil RN Work Phone: [employer].; [employer]. 01-03-2014 09:24-0500 Body surface area Derived from formula 1.75 m2 Tami Gil RN Work Phone: [employer].; [employer]. 01-03-2014 09:24-0500 Body weight 72.58 kg Tami Gil RN Work Phone: [employer]. 01-03-2014 09:24-0500 Diastolic blood pressure 71 mm[Hg] Tami Gil RN Work Phone: [employer]. Comment on above: Patient Position: Sitting; Cuff Location : Left Arm; Cuff Size: Large 01-03-2014 09:24-0500 Heart rate 70 /min Tami Gil RN Work Phone: [employer]. Comment on above: Pattern: Regular 01-03-2014 09:24-0500 Systolic blood pressure 113 mm[Hg] Tami Gil RN Work Phone: [employer]. Comment on above: Patient Position: Sitting; Cuff Location : Left Arm; Cuff Size: Large 06-28-2013 08:59-0400 Body height 158.75 cm Tami Gil RN Work Phone: [employer] 06-28-2013 08:59-0400 Body mass index (BMI) [Ratio] 28.44 kg/m2 Tami Gil RN Work Phone: [employer].; [employer] 06-28-2013 08:59-0400 Body surface area Derived from formula 1.74 m2 Tami Gil RN Work Phone: [employer].; [employer] 06-28-2013 08:59-0400 Body weight 71.67 kg Tami Gil RN Work Phone: [employer] 06-28-2013 08:59-0400 Diastolic blood pressure 67 mm[Hg] Tami Gil RN Work Phone: [employer]. Comment on above: Patient Position: Sitting; Cuff Location : Left Arm; Cuff Size: Large 06-28-2013 08:59-0400 Heart rate 70 /min Tami Gil RN Work Phone: [employer]. Comment on above: Pattern: Regular 06-28-2013 08:59-0400 Systolic blood pressure 108 mm[Hg] Tami Gil RN Work Phone: [employer]. Comment on above: Patient Position: Sitting; Cuff Location : Left Arm; Cuff Size: Large 12-28-2012 08:46-0400 Body height 158.75 cm Tami Gil RN Work Phone: [employer] 12-28-2012 08:46-0400 Body mass index (BMI) [Ratio] 29.7 kg/m2 Tami Gil RN Work Phone: [employer] 12-28-2012 08:46-0400 Body surface area Derived from formula 1.77 m2 Tami Gil RN Work Phone: [employer].; [employer] 12-28-2012 08:46-0400 Body weight 74.84 kg Tami Gil RN Work Phone: [employer] 12-28-2012 08:46-0400 Diastolic blood pressure 83 mm[Hg] Tami Gil RN Work Phone: [employer]. Comment on above: Patient Position: Sitting; Cuff Location : Right Arm; Cuff Size: Large 12-28-2012 08:46-0400 Heart rate 75 /min Tami Gil RN Work Phone: [employer].; [employer]. Comment on above: Pattern: Regular 12-28-2012 08:46-0400 Systolic blood pressure 126 mm[Hg] Tami Gil RN Work Phone: [employer]. Comment on above: Patient Position: Sitting; Cuff Location : Right Arm; Cuff Size: Large 09-16-2012 18:25-0400 Body height 158.75 cm [facility] Work Phone: [employer] 09-16-2012 18:25-0400 Body mass index (BMI) [Ratio] 28.62 kg/m2 [facility] [facility] Work Phone: [employer] 09-16-2012 18:25-0400 Body surface area Derived from formula 1.74 m2 [facility]ly [facility], later [facility] Work Phone: [employer] 09-16-2012 18:25-0400 Body weight 72.12 kg Glenna Khan LPN Work Phone: [employer] 09-16-2012 18:25-0400 Diastolic blood pressure 72 mm[Hg] Glenna Khan UTILITY INSPECTOR Work Phone: [employer] Comment on above: Patient Position: Sitting; Cuff Location : Left Arm; Cuff Size: Standard 09-16-2012 18:25-0400 Heart rate 69 /min Glenna Khan LPN Work Phone: [employer] Comment on above: Pattern: Regular 09-16-2012 18:25-0400 Systolic blood pressure 113 mm[Hg] Glenna Khan UTILITY INSPECTOR Work Phone: [employer]. Comment on above: Patient Position: Sitting; Cuff Location : Left Arm; Cuff Size: Standard 06-29-2012 11:04-0400 Body height 158.75 cm Michelle Benjamin MD Work Phone: [employer] 06-29-2012 11:04-0400 Body mass index (BMI) [Ratio] 29.7 kg/m2 Michelle Benjamin MD Work Phone: [employer] 06-29-2012 11:04-0400 Body surface area Derived from formula 1.77 m2 Michelle Benjamin MD Work Phone: [employer] 06-29-2012 11:04-0400 Body weight 74.84 kg Michelle Benjamin MD Work Phone: [employer] 06-29-2012 11:04-0400 Diastolic blood pressure 84 mm[Hg] Michelle Benjamin MD Work Phone: [employer]. Comment on above: Patient Position: Sitting; Cuff Location : Right Arm; Cuff Size: Standard 06-29-2012 11:04-0400 Heart rate 69 /min Michelle Benjamin MD Work Phone: [facility] [employer]. Comment on above: Pattern: Regular 06-29-2012 11:04-0400 Systolic blood pressure 134 mm[Hg] Michelle Benjamin MD Work Phone: [employer]. Comment on above: Patient Position: Sitting; Cuff Location : Right Arm; Cuff Size: Standard 12-23-2011 08:58-0400 Body height 158.75 cm Glenna Bill UTILITY INSPECTOR Work Phone: [employer] 12-23-2011 08:58-0400 Body mass index (BMI) [Ratio] 30.96 kg/m2 Glenna Bill UTILITY INSPECTOR Work Phone: [place] [employer]; [employer] 12-23-2011 08:58-0400 Body surface area Derived from formula 1.8 m2 Glenna Bill UTILITY INSPECTOR Work Phone: [employer]; [employer] 12-23-2011 08:58-0400 Body weight 78.02 kg Glenna Bill UTILITY INSPECTOR Work Phone: [place] [employer]; [employer] 12-23-2011 08:58-0400 Diastolic blood pressure 77 mm[Hg] Glenna Bill UTILITY INSPECTOR Work Phone: [employer] Comment on above: Patient Position: Sitting; Cuff Location : Left Arm; Cuff Size: Standard 12-23-2011 08:58-0400 Heart rate 65 /min Glenna Bill UTILITY INSPECTOR Work Phone: [employer]. Comment on above: Pattern: Regular 12-23-2011 08:58-0400 Systolic blood pressure 130 mm[Hg] Glenna Bill UTILITY INSPECTOR Work Phone: [employer]. Comment on above: Patient Position: Sitting; Cuff Location : Left Arm; Cuff Size: Standard 06-24-2011 10:05-0400 Body height 158.75 cm Tami Gil RN Work Phone: [employer] 06-24-2011 10:05-0400 Body mass index (BMI) [Ratio] 31.32 kg/m2 Tami Gil RN Work Phone: [employer] 06-24-2011 10:05-0400 Body surface area Derived from formula 1.81 m2 Tami Gil RN Work Phone: [employer]. 06-24-2011 10:05-0400 Body weight 78.93 kg Tami Gil RN Work Phone: [employer] 06-24-2011 10:05-0400 Diastolic blood pressure 77 mm[Hg] Tami Gil RN Work Phone: [employer]. Comment on above: Patient Position: Sitting; Cuff Location : Left Arm; Cuff Size: Standard 06-24-2011 10:05-0400 Heart rate 67 /min Tami Gil RN Work Phone: [employer]. Comment on above: Pattern: Regular 06-24-2011 10:05-0400 Systolic blood pressure 122 mm[Hg] Tami Gil RN Work Phone: [employer]. Comment on above: Patient Position: Sitting; Cuff Location : Left Arm; Cuff Size: Standard 12-24-2010 08:04-0400 Body height 158.75 cm Tami Gil RN Work Phone: [employer] 12-24-2010 08:04-0400 Body mass index (BMI) [Ratio] 30.24 kg/m2 Tami Gil RN Work Phone: [employer] 12-24-2010 08:04-0400 Body surface area Derived from formula 1.79 m2 Tami Gil RN Work Phone: [employer] 12-24-2010 08:04-0400 Body weight 76.2 kg Tami Gil RN Work Phone: [employer] [employer] 12-24-2010 08:04-0400 Diastolic blood pressure 87 mm[Hg] Tami Gil RN Work Phone: [employer]. Comment on above: Patient Position: Sitting; Cuff Location : Left Arm; Cuff Size: Standard 12-24-2010 08:04-0400 Heart rate 74 /min Tami Gil RN Work Phone: [employer]; [employer]. Comment on above: Pattern: Regular 12-24-2010 08:04-0400 Systolic blood pressure 131 mm[Hg] Tami Gil RN Work Phone: [employer]. Comment on above: Patient Position: Sitting; Cuff Location : Left Arm; Cuff Size: Standard 12-17-2010 14:48-0400 Body height 158.75 cm Tami Gil RN Work Phone: [employer] 12-17-2010 14:48-0400 Body mass index (BMI) [Ratio] 30.42 kg/m2 Tami Gil RN Work Phone: [employer] 12-17-2010 14:48-0400 Body surface area Derived from formula 1.79 m2 Tami Gil RN Work Phone: [employer] 12-17-2010 14:48-0400 Body weight 76.66 kg Tami Gil RN Work Phone: [employer] 12-17-2010 14:48-0400 Diastolic blood pressure 86 mm[Hg] Tami Gil RN Work Phone: [employer]. Comment on above: Patient Position: Sitting; Cuff Location : Left Arm; Cuff Size: Standard 12-17-2010 14:48-0400 Heart rate 64 /min Tami Gil RN Work Phone: [employer]. Comment on above: Pattern: Regular 12-17-2010 14:48-0400 Systolic blood pressure 150 mm[Hg] Tami Gil RN Work Phone: [employer]. Comment on above: Patient Position: Sitting; Cuff Location : Left Arm; Cuff Size: Standard 06-25-2010 10:55-0400 Body height 158.75 cm Tami Gil RN Work Phone: [employer] 06-25-2010 10:55-0400 Body mass index (BMI) [Ratio] 29.34 kg/m2 Tami Gil RN Work Phone: [employer] 06-25-2010 10:55-0400 Body surface area Derived from formula 1.76 m2 Tami Gil RN Work Phone: [employer]. 06-25-2010 10:55-0400 Body weight 73.94 kg Tami Gil RN Work Phone: [employer]. 06-25-2010 10:55-0400 Diastolic blood pressure 91 mm[Hg] Tami Gil RN Work Phone: [employer]. Comment on above: Patient Position: Sitting; Cuff Location : Left Arm; Cuff Size: Standard 06-25-2010 10:55-0400 Heart rate 62 /min Tami Gil RN Work Phone: [employer]. Comment on above: Pattern: Regular 06-25-2010 10:55-0400 Systolic blood pressure 159 mm[Hg] Tami Gil RN Work Phone: [employer]. Comment on above: Patient Position: Sitting; Cuff Location : Left Arm; Cuff Size: Standard 12-27-2009 12:02-0400 Body height 158.75 cm Michelle Benjamin MD Work Phone: [employer] 12-27-2009 12:02-0400 Body mass index (BMI) [Ratio] 28.8 kg/m2 Michelle Benjamin MD Work Phone: [employer] 12-27-2009 12:02-0400 Body surface area Derived from formula 1.75 m2 Michelle Benjamin MD Work Phone: [employer] 12-27-2009 12:02-0400 Body weight 72.58 kg Michelle Benjamin MD Work Phone: [employer] 12-27-2009 12:02-0400 Diastolic blood pressure 86 mm[Hg] Michelle Benjamin MD Work Phone: [employer]. Comment on above: Patient Position: Sitting; Cuff Location : Left Arm; Cuff Size: Standard 12-27-2009 12:02-0400 Heart rate 71 /min Michelle Benjamin MD Work Phone: [employer]. Comment on above: Pattern: Regular 12-27-2009 12:02-0400 Systolic blood pressure 143 mm[Hg] Michelle Benjmain MD Work Phone: [employer]. Comment on above: Patient Position: Sitting; Cuff Location : Left Arm; Cuff Size: Standard Encounters Encounter Date Encounter Type Care Provider Facility Start: 09-15-2024 Encounter for other preprocedural examination [facility] Start: 09-15-2024 Non-patient / Non-visit Dr. Piotr eastman [facility] Work Phone: Start: 09-14-2024 Non-patient / Non-visit Dr. Phoenix [facility] Work Phone: Start: 09-14-2024 End: 09-15-2024 ambulatory [facility] Facility:[facility] Start: 09-14-2024 End: 09-15-2024 Evaluation and management of inpatient Dr. Guerrero Valdivia MD -[facility] Work Phone: Start: 09-14-2024 End: 09-15-[address] Moose Dempsey MD Work Phone: -[facility] Start: 09-14-2024 ambulatory [facility] Facility:[facility] Start: 09-14-2024 Non-patient / Non-visit Dr. Guerrero cronin MD -[facility] Start: 09-08-2024 End: 09-08-2024 Orders Moose Dempsey MD [facility] Start: 09-01-2024 End: 09-01-[address] Guerrero Valdivia MD -[facility] Work Phone: Start: 09-01-2024 End: 09-01-[address] Moose Dempsey MD Work Phone: -[facility] Start: 08-30-2024 End: 08-30-2024 Office outpatient visit 15 minutes Moose Dempsey MD [facility] Start: 08-30-2024 End: 08-30-2024 Physical examination Moose Dempsey MD [facility] Phone[facility] Start: 07-28-2024 End: 07-28-[address] Chente Whitmore MD -[facility] Start: 07-28-2024 End: 07-28-[address] Moose Dempsey MD Work Phone: [facility] Work Phone: Start: 07-22-2024 End: 07-22-[address] Moose Dempsey MD Work Phone: [facility] Work Phone: Start: 07-22-2024 End: 07-22-[address] Guerrero Valdivia [facility] Work Phone: Start: 07-22-2024 End: 07-22-2024 ambulatory [facility] [place]:[facility] Start: 07-08-2024 End: 07-08-[address] Guerrero Valdivia MD -[facility] Work Phone: Start: 07-08-2024 End: 07-08-2024 ambulatory [facility] [place]:[facility] Start: 04-26-2024 End: 04-26-2024 Office outpatient visit 25 minutes Moose Dempsey MD Work Phone[facility] Start: 12-01-2023 End: 12-11-2023 ambulatory [facility] Start: 10-28-2023 End: 10-28-2023 Periodic preventive med est patient 65yrs& older Moose Dempsey MD Work Phone: [facility] Start: 10-25-2023 Encounter for preprocedural laboratory examination [facility] Start: 10-21-2023 End: 10-21-2023 Orders Moose Dempsey MD Work Phone: [facility] Start: 10-02-2023 End: 10-02-2023 ambulatory Moose Dempsey Facility:[facility] Start: 09-30-2023 End: 09-30-2023 ambulatory [facility] [place]:[facility] Start: 09-24-2023 End: 11-30-2023 ambulatory [facility] Start: 08-25-2023 End: 08-25-2023 Orders Moose Dempsey MD Work Phone: [employer] Start: 08-10-2023 End: 08-10-2023 Office outpatient visit 10 minutes Moose Dempsey MD Work Phone: [employer] Start: 08-10-2023 Review Moose Dempsey MD Work Phone: [employer] Start: 07-21-2023 End: 07-21-2023 ambulatory MOOSE DEMPSE[facility] Start: 06-18-2023 End: 06-18-2023 Orders Moose Dempsey MD Work Phone: [employer] Start: 04-28-2023 End: 04-28-2023 Office outpatient visit 15 minutes Moose Dempsey MD Work Phone: [employer] Start: 03-24-2023 End: 03-24-2023 Orders Moose Dempsey MD Work Phone: [employer] Start: 02-02-2023 End: 02-02-2023 Office outpatient visit 15 minutes Moose Dempsey MD Work Phone: [employer] Start: 10-21-2022 End: 10-21-2022 Periodic preventive med est patient 65yrs& older Moose Dempsey MD Work Phone: [employer] Start: 10-14-2022 End: 10-14-2022 Orders Moose Dempsey MD Work Phone: [employer] Start: 09-11-2022 End: 09-11-2022 Orders Moose Dempsey MD Work Phone: [employer] Start: 04-09-2022 End: 04-09-2022 Orders Moose Dempsey MD Work Phone: [employer] Start: 04-01-2022 End: 04-01-2022 Office outpatient visit 15 minutes Moose Dempsey MD Work Phone: [employer] Start: 09-24-2021 End: 09-24-2021 Periodic preventive med est patient 65yrs& older Moose Dempsey MD Work Phone: [employer] Start: 09-17-2021 End: 09-17-2021 Orders Moose Dempsey MD Work Phone: [employer] Start: 08-07-2021 End: 08-07-2021 Orders Moose Dempsey MD Work Phone: [employer] Start: 05-14-2021 End: 05-14-2021 Orders Moose Dempsey MD Work Phone: [employer] Start: 03-20-2021 End: 03-20-2021 Office outpatient visit 25 minutes Moose Dempsey MD Work Phone: [employer] Start: 02-25-2021 End: 02-25-2021 Telephone follow-up Moose Dempsey MD Work Phone: [employer] Start: 09-18-2020 End: 09-18-2020 Periodic preventive med est patient 65yrs& older Moose Dempsey MD Work Phone: [employer] Start: 08-02-2020 End: 08-03-2020 Orders Moose Dempsey MD Work Phone: [employer] Start: 07-24-2020 End: 07-24-2020 Orders Moose Dempsey MD Work Phone: [employer] Start: 03-20-2020 End: 03-20-2020 Office outpatient visit 25 minutes Moose Dempsey MD Work Phone: [employer] Start: 01-24-2020 End: 01-24-2020 Telephone follow-up Moose Dempsey MD Work Phone: [employer] Start: 09-13-2019 End: 09-13-2019 Office outpatient visit 25 minutes Moose Dempsey MD Work Phone: [employer] Start: 08-01-2019 End: 08-01-2019 Office outpatient visit 15 minutes Moose Dempsey MD Work Phone: [employer] Start: 07-05-2019 End: 07-05-2019 Orders Moose Dempsey MD Work Phone: [employer] Start: 03-29-2019 End: 03-29-2019 Periodic preventive med est patient 65yrs& older Moose Dempsey MD Work Phone: [employer] Start: 03-22-2019 End: 03-22-2019 Orders Moose Dempsey MD Work Phone: [employer]. Start: 03-14-2019 End: 03-14-2019 Orders Moose Dempsey MD Work Phone: [employer]. Start: 03-11-2019 End: 03-11-2019 Office outpatient visit 15 minutes Moose Dempsey MD Work Phone: [employer] Start: 03-07-2019 End: 03-07-2019 Orders Moose Dempsey MD Work Phone: [employer]. Start: 11-03-2018 End: 11-03-2018 Orders Moose Dempsey MD Work Phone: [employer]. Start: 08-27-2018 End: 08-27-2018 Office outpatient visit 15 minutes Moose Dempsey MD Work Phone: [employer] Start: 03-16-2018 End: 03-16-2018 Office outpatient visit 15 minutes Moose Dempsey MD Work Phone: [employer] Start: 02-26-2018 End: 02-26-2018 Office outpatient visit 15 minutes Moose Dempsey MD Work Phone: [employer] Start: 02-19-2018 End: 02-19-2018 Orders Moose Dempsey MD Work Phone: [employer] Start: 09-28-2017 End: 09-28-2017 Orders Moose Dempsey MD Work Phone: [employer]. Start: 08-25-2017 End: 08-25-2017 Office outpatient visit 15 minutes Moose Dempsey MD Work Phone: [employer] Start: 05-05-2017 End: 05-05-2017 Office outpatient visit 15 minutes Moose Dempsey MD Work Phone: [employer] Start: 02-18-2017 End: 02-18-2017 Periodic preventive med est patient 65yrs& older Moose Dempsey MD Work Phone: [employer] Start: 01-09-2017 End: 01-09-2017 Orders Moose Dempsey MD Work Phone: [employer] Start: 11-18-2016 End: 11-18-2016 Orders Moose Dempsey MD Work Phone: [employer]. Start: 07-15-2016 End: 07-15-2016 Patient encounter procedure Moose Dempsey MD Work Phone: [employer] Start: 01-15-2016 End: 01-15-2016 Office outpatient visit 15 minutes Moose Dempsey MD Work Phone: [employer] Start: 01-08-2016 End: 01-08-2016 Orders Moose Dempsey MD Work Phone: [employer]. Start: 12-22-2015 End: 12-22-2015 Office outpatient visit 15 minutes Moose Dempsey MD Work Phone: [employer] Start: 07-10-2015 End: 07-11-2015 Periodic preventive med est patient 65yrs& older Moose Dempsey MD Work Phone: [employer] Start: 05-14-2015 End: 05-14-2015 Office outpatient visit 10 minutes Moose Dempsey MD Work Phone: [employer]. Start: 01-09-2015 End: 01-09-2015 Office outpatient visit 15 minutes Moose Dempsey MD Work Phone: [employer] Start: 01-08-2015 End: 01-08-2015 Historical Summary Moose Dempsey MD Work Phone: [employer] Start: 01-02-2015 End: 01-02-2015 Orders Moose Dempsey MD Work Phone: [employer] Start: 07-04-2014 End: 07-04-2014 Periodic preventive med est patient 65yrs& older Moose Dempsey MD Work Phone: [employer] Start: 01-03-2014 End: 01-03-2014 Office outpatient visit 15 minutes Moose Dempsey MD Work Phone: [employer] Start: 12-27-2013 End: 12-27-2013 Orders Moose Dempsey MD Work Phone: [employer] Start: 12-26-2013 End: 12-26-2013 Orders Moose Dempsey MD Work Phone: [employer] Start: 06-28-2013 End: 06-28-2013 Patient encounter procedure Moose Dempsey MD Work Phone: [employer] Start: 12-28-2012 End: 12-28-2012 Patient encounter procedure Moose Dempsey MD Work Phone: [employer] Start: 12-21-2012 End: 12-21-2012 Orders Moose Dempsey MD Work Phone: [employer] Start: 09-16-2012 End: 09-16-2012 Patient encounter procedure Moose Dempsey MD Work Phone: [employer] Start: 06-29-2012 End: 06-30-2012 Manual pelvic examination Moose Dempsey MD Work Phone: [employer]; [employer]. Start: 06-29-2012 End: 06-30-2012 Patient encounter procedure Moose Dempsey MD Work Phone: [employer] Start: 12-23-2011 End: 12-23-2011 Patient encounter procedure Moose Dempsey MD Work Phone: [employer] Start: 06-24-2011 End: 06-24-2011 Patient encounter procedure Moose Dempsey MD Work Phone: [employer] Start: 06-24-2011 End: 06-24-2011 Routine gynecological examination Moose Dempsey MD Work Phone: [employer]; [employer] Start: 12-24-2010 End: 12-24-2010 Patient encounter procedure Moose Dempsey MD Work Phone: [employer] Start: 12-19-2010 End: 12-19-2010 Orders Moose Dempsey MD Work Phone: [employer] Start: 12-17-2010 End: 12-17-2010 Patient encounter procedure Moose Dempsey MD Work Phone: [employer] Start: 06-25-2010 End: 06-25-2010 Patient encounter procedure Moose Dempsey MD Work Phone: [employer] Start: 06-25-2010 End: 06-25-2010 Routine gynecological examination Moose Dempsey MD Work Phone: [employer]; [employer] Start: 12-27-2009 End: 12-27-2009 Patient encounter procedure Moose Dempsey MD Work Phone: [employer] Start: 12-25-2009 End: 12-25-2009 Historical Summary Moose Dempsey MD Work Phone: [employer] Start: 12-20-2009 End: 12-20-2009 Orders Moose Dempsey MD Work Phone: [employer] Procedures Date Procedure Procedure Detail Performing Clinician Start: 09-15-[address] Moose Dempsey MD Work Phone: Start: 09-15-2024 X-ray of cervical spine Dr. Moose Dempsey MD Work Phone: Start: 09-14-2024 Cervical arthrodesis by anterior technique Dr. Moose Dempsey MD Work Phone: Start: 09-14-2024 Fluoroscopic guidance Steff Dempsey MD Work Phone: Start: 09-14-2024 X-ray of cervical spine Dr. Moose Dempsey MD Work Phone: Start: 09-07-2024 Methicillin resistan t Staphylococcus aureus screening test Dr. Moose Dempsey MD Work Phone: Start: 09-01-2024 Hepatitis A virus an tibody, total measurement Dr. Moose Dempsey MD Work Phone: Comment on above: Comment: The HAV tot al antibody assay detects both IgG andIgM but does not differentiate between them. A negativeresult suggests susceptibility to infection. A positiveresult could be due to vaccination, previously resolvedinfection or active infection. Testing for HAV IgM shouldbe performed if active HAV infection is suspected. [facility] profiles that will automatically reflex positive HAVtotal antibody results to IgM (e.g., panel #[id number] HAVAntibody w/ Rfx).Performed at: [address] [id number] Director: Charles Souza PhD, Phone: [phone] Start: 09-01-2024 PCR test for HIV 1 Dr. Moose Dempsey MD Work Phone: Comment on above: HIV-1 RNA not detect edThe reportable range for this assay is 20 to 10,000,000copies HIV-1 RNA/mL. Start: 07-28-2024 X-ray of cervical spine Dr. Moose Dempsey MD Work Phone: Start: 07-22-2024 MRI of cervical spine Steff Dempsey MD Work Phone: Start: 10-28-2023 End: 10-27-2023 Adv care pln/ no alt dcsn mkr docd or refusal Moose Dempsey MD Work Phone: Start: 10-28-2023 End: 10-27-2023 Depression screening Moose Dempsey MD Work Phone: Start: 10-28-2023 End: 10-27-2023 Falls risk assessment documented Moose Dempsey MD Work Phone: Start: 10-28-2023 End: 10-27-2023 PPPS, subseq visit Moose Dempsey MD Work Phone: Start: 10-28-2023 End: 10-27-2023 Pt falls assess docd w/o fall/injury past year Moose Dempsey MD Work Phone: Start: 10-28-2023 End: 10-27-2023 Scr dep neg, no plan reqd Moose Dempsey MD Work Phone: Start: 10-21-2023 End: 10-21-2023 Lab findings surveillance Manny Haro PN Comment on above: CMP 107 Start: 10-21-2023 End: 10-21-2023 Lipid panel results documented & reviewed Manny Huitron LPN Comment on above: TC 164, HDL 54, TRI 171, LDL 83 Start: 07-01-2023 End: 07-01-2023 Screening mammography Moose Dempsey MD Work Phone: Comment on above: Normal. Within Stephanie l Limits. Start: 06-18-2023 End: 07-21-2023 Screening mammography bi 2-view breast inc cad Moose Dempsey MD Work Phone: Start: 10-21-2022 End: 10-21-2022 Adv care pln/ no alt dcsn mkr docd or refusal Moose Dempsey MD Work Phone: Start: 10-21-2022 End: 10-21-2022 Depression screening Moose Dempsey MD Work Phone: Start: 10-21-2022 End: 10-21-2022 Falls risk assessment documented Moose Dempsey MD Work Phone: Start: 10-21-2022 End: 10-21-2022 PPPS, subseq visit Moose Dempsey MD Work Phone: Start: 10-21-2022 End: 10-21-2022 Pt falls assess docd w/o fall/injury past year Moose Dempsey MD Work Phone: Start: 10-21-2022 End: 10-21-2022 Scr dep neg, no plan reqd Moose Dempsey MD Work Phone: Start: 10-14-2022 End: 10-14-2022 Lab findings surveillance Sydnie Smith Negrita perales UTILITY INSPECTOR Comment on above: 112 in CMP Start: 10-14-2022 End: 10-14-2022 Lipid panel results documented & reviewed Sydnie Boyle UTILITY INSPECTOR Start: 04-09-2022 End: 04-09-2022 Diagnostic mammography computer-aided detcj uni Moose Dempsey MD Work Phone: Comment on above: for 6month follow-up Start: 04-02-2022 End: 04-02-2022 Screening mammography Sydnie Boyle UTILITY INSPECTOR Comment on above: Normal. Start: 09-24-2021 End: 09-24-2021 Adv care pln/ no alt dcsn mkr docd or refusal Moose Dempsey MD Work Phone: Start: 09-24-2021 End: 09-24-2021 Depression screening Moose Dempsey MD Work Phone: Start: 09-24-2021 End: 09-24-2021 Falls risk assessment documented Moose Dempsey MD Work Phone: Start: 09-24-2021 End: 09-24-2021 PPPS, subseq visit Moose Dempsey MD Work Phone: Start: 09-24-2021 End: 09-24-2021 Pt falls assess docd w/o fall/injury past year Moose Dempsey MD Work Phone: Start: 09-24-2021 End: 09-24-2021 Scr dep neg, no plan reqd Moose Dempsey MD Work Phone: Start: 09-24-2021 End: 10-29-2021 Screening mammography bi 2-view breast inc cad Moose Dempsey MD Work Phone: Start: 09-18-2020 End: 09-18-2020 Depression screening Moose Dempsey MD Work Phone: Start: 09-18-2020 End: 09-18-2020 Falls risk assessment documented Moose Dempsey MD Work Phone: Start: 09-18-2020 End: 09-18-2020 PPPS, subseq visit Moose Dempsey MD Work Phone: Start: 09-18-2020 End: 09-18-2020 Pt falls assess docd 2/> falls/fall w/injury/yr Moose Dempsey MD Work Phone: Start: 09-18-2020 End: 09-18-2020 Scr dep neg, no plan reqd Moose Dempsey MD Work Phone: Start: 08-02-2020 End: 08-03-2020 Screening mammography bi 2-view breast inc cad Moose Dempsey MD Work Phone: Start: 01-01-2020 End: 01-01-2020 Laminectomy Sydnie Boyle LP N Comment on above: Ned Start: 08-17-2019 End: 08-17-2019 Screening colonoscopy Sydnie Boyle UTILITY INSPECTOR Comment on above: PandiverticulosisSteff, repeat due in 5 years (2024). Start: 03-29-2019 End: 03-29-2019 Depression screening Moose Dempsey MD Work Phone: Start: 03-29-2019 End: 03-29-2019 Falls risk assessment documented Moose Dempsey MD Work Phone: Start: 03-29-2019 End: 03-29-2019 PPPS, subseq visit Moose Dempsey MD Work Phone: Start: 03-29-2019 End: 03-29-2019 Pt falls assess docd w/o fall/injury past year Moose Dempsey MD Work Phone: Start: 03-29-2019 End: 03-29-2019 Scr dep neg, no plan reqd Moose Dempsey MD Work Phone: Start: 03-14-2019 End: 03-22-2019 Mri spinal canal lumbar w/o contrast material Moose Dempsey MD Work Phone: Start: 03-11-2019 End: 03-14-2019 Radex spine lumbosacral 2/3 views Moose Dempsey MD Work Phone: Start: 11-03-2018 End: 11-12-2018 Screening mammography bi 2-view breast inc cad Moose Dempsey MD Work Phone: Start: 09-28-2017 End: 10-13-2017 Screening mammography bi 2-view breast inc cad Moose Dempsey MD Work Phone: Start: 08-25-2017 End: 08-25-2017 Depression screen annual Moose Artis Work Phone: Start: 08-25-2017 End: 08-25-2017 Falls risk assessment documented Moose Dempsey MD Work Phone: Start: 05-05-2017 End: 05-05-2017 Body mass index documented Moose Dempsey MD Work Phone: Start: 02-18-2017 End: 02-18-2017 Body mass index documented Moose Dempsey MD Work Phone: Start: 02-18-2017 End: 02-18-2017 PPPS, subseq visit Moose Dempsey MD Work Phone: Start: 02-18-2017 End: 02-18-2017 Pt falls assess docd w/o fall/injury past year Moose Dempsey MD Work Phone: Start: 02-18-2017 End: 02-18-2017 Scr dep neg, no plan reqd Moose Dempsey MD Work Phone: Start: 02-18-2017 End: 02-18-2017 Falls risk assessment documented Moose Dempsey MD Work Phone: Start: 02-18-2017 End: 02-18-2017 Depression screen annual Moose Artis Work Phone: Start: 07-15-2016 End: 09-08-2016 Screening mammography bi 2-view breast inc cad Moose Dempsey MD Work Phone: Start: 07-15-2016 End: 07-15-2016 Depression screen annual Moose Artis Work Phone: Start: 07-15-2016 End: 07-15-2016 Falls risk assessment documented Moose Dempsey MD Work Phone: Start: 07-10-2015 End: 07-10-2015 PPPS, subseq visit Michelle Benjamin MD Work Phone: Start: 01-09-2015 End: 02-08-2015 Mammogram, screening Michelle Benjamin MD Work Phone: Start: 07-31-2014 End: 07-31-2014 Ophthalmic examination and evaluation Sydnie Boyle UTILITY INSPECTOR Comment on above: marya Solis Start: 07-04-2014 [...] 12-27-2009 Pure tone audiometry air only Michelle santos MD Work Phone: Start: 03-02-2009 End: 03-02-2009 Screening for malignant neoplasm of large intestine Sydnie Boyle UTILITY INSPECTOR Comment on above: normal colonoscopy ( next 2014) Start: 06-30-2005 End: 06-30-2005 Bone density scan Sydnie Boyle LP N Comment on above: Normal. Abdominal hysterectomy Sydnie Boyle UTILITY INSPECTOR Comment on above: for fibroids, ovary intact Abdominal hysterectomy Dong galvez Tomy UTILITY INSPECTOR Comment on above: for fibroids, ovary intact Plan of Treatment Date Care Activity Detail Author Start: 11-15-2024 Patient encounter procedure Medical; PHYSICAL - [facility] Start: 15-Nov-2024 10:00-04:00 MD Moose Dempsey [facility]ment [facility] Start: 11-08-2024 Lipid panel LIPID PANEL (31886) Start: 08-Nov-2024 10:45-04:00 Request [employer]; [employer]. Start: 11-08-2024 Comprehensive metabolic panel CMP w/ GFR* (19498) Start: 08-Nov-2024 10:45-04:00 [facility] [employer]. Start: 11-08-2024 Nursing evaluation of patient and report [facility] Start: 09-15-2024 Patient discharge [facility] Start: 09-15-2024 Application of device [facility] Start: 09-15-2024 Measuring intake and output [facility] Start: 09-15-2024 Catheterization of vein [facility] Start: 09-15-2024 Incentive spirometry [facility] Start: 09-15-2024 Measuring intake and output [facility] Start: 09-14-2024 Measuring intake and output [facility] Start: 09-14-2024 End: 09-14-2024 Incentive spirometry [facility] Start: 09-14-2024 Measuring intake and output [facility] Start: 09-14-2024 Following clinical pathway protocol [facility] Start: 09-14-2024 Application of intermittent pneumatic compression device [facility] Start: 09-14-2024 Oxygen therapy [facility] Start: 09-14-2024 Application of device [facility] Start: 09-14-2024 Measuring intake and output [facility] Start: 09-14-2024 Consultation [facility] Start: 09-14-2024 Admission procedure [facility] Start: 09-14-2024 Assessment of risk of venous thromboembolism [facility] Start: 09-14-2024 Following clinical pathway protocol [facility] Start: 09-14-2024 Introduction of urinary catheter [facility] Start: 09-14-2024 Neurovascular assessment [facility] Start: 09-14-2024 Patient education [facility] Start: 09-14-2024 Provision of activity privileges [facility] Start: 09-14-2024 Referral to occupational therapist [facility] Start: 09-14-2024 Referral to service [facility] Start: 09-14-2024 Taking patient vital signs [facility] Start: 09-14-2024 End: 09-14-2024 [facility] Start: 07-28-2024 X-ray of cervical spine Cerv Spine 4 or 5 Views [facility] Start: 07-28-2024 XR Cervical spine 4 or 5 Views [facility] Start: 04-26-2024 Patient encounter procedure [facility] [employer] Start: 10-28-2023 Patient encounter procedure Medical; PHYSICAL - AWV [employer] Start: 28-Oct-2023 08:40-04:00 MD Moose Dempsey Appointment Request [employer] Start: 10-27-2023 Patient encounter procedure Medical; PHYSICAL - AWV [employer] Start: 27-Oct-2023 09:10-04:00 MD Moose Dempsey Appointment Request [employer] Start: 10-21-2023 Comprehensive metabolic panel CMP w/ GFR* (87528) Start: 21-Oct-2023 Request [employer] Start: 10-21-2023 Lipid panel LIPID PANEL (03614) Start: 21-Oct-2023 Request [employer] Start: 10-21-2023 Nursing evaluation of patient and report [employer]. Start: 06-18-2023 Screening mammography bi 2-view breast inc cad Mammogram Bilateral Screening Digital w/CAD (28489) Start: 18-Jun-2023 Intent [employer] Start: 04-28-2023 Patient encounter procedure Medical; RTN OFFICE VISIT - 6 mos rtn [facility] Start: 28-Apr-2023 9:00 MD Moose Dempsey [facility]ment [facility] Start: 04-01-2022 End: 04-01-2022 Diagnostic mammography computer-aided detcj bi Mammogram Bilateral Diagnostic (90290) Date: 01-Apr-2022 [facility] [place] [employer] Start: 12-24-2010 Patient Education Rosacea *: acne rosacea Indication: Rosacea (Renamed from Acne erythematosa) Start: 24-Dec-2010 Instruction Type: Patient Education [facility].; [facility] [employer] (RCDb) [facility] Electrocardiographic procedure [facility] Patient Education Cervical Fusion Dc [facility] Work Phone: Patient referral [facility] Work Phone: Immunizations Immunization Date Immunization Notes Care Provider Fa cility 12-22-2020 COVID-Moderna (100 MCG/0.5 ML) Moose Dempsey MD Work Phone: [facility]; [place] [employer] (RCDb) [facility] 09-18-2020 tetanus toxoid, redu dinh diphtheria toxoid, and acellular pertussis vaccine, adsorbed Moose Dempsey MD Work Phone: [facility].; [facility]. 05-02-2020 COVID-Moderna (100 MCG/0.5 ML) Moose Dempsey MD Work Phone: [facility].; [facility]. 04-04-2020 COVID-Moderna (100 MCG/0.5 ML) Moose Dempsey MD Work Phone: [facility].; [place] [employer] (RCDb) [facility]. 03-14-2020 zoster vaccine recombinant Mosoe Dempsey MD Work Phone: [facility].; [facility]. 11-16-2019 zoster vaccine recombinant Moose Dempsey MD Work Phone: [facility].; [facility]. 03-29-2019 Shingrix 50 MCG/0.5M L Intramuscular Suspension Reconstituted Moose Dempsey MD Work Phone: [facility] [place]; [employer] Comment on above: Repeat in 2-6 months 02-18-2017 influenza, injectabl e, quadrivalent, contains preservative Moose Dempsey MD Work Phone: [facility]; [employer]. Comment on above: Site: Left DeltoidVI S Given: * Influenza - Inactivated (10/06/14) 01-15-2016 unknown vaccine or i mmune globulin Moose Dempsey MD Work Phone: [facility]; [employer]. 01-15-2016 influenza, injectabl e, quadrivalent, contains preservative Moose Dempsey MD Work Phone: [employer]; [employer]. Comment on above: Site: Deltoid (Right )VIS Given: * Influenza - Inactivated (10/06/14) 07-10-2015 pneumococcal conjuga te vaccine, 13 valent Moose Dempsey MD Work Phone: [facility]; [employer]. Comment on above: Site: Deltoid (Left) VIS Given: * Pneumococcal Conjugate (PCV13) (04/28/12) 01-09-2015 ADMINISTRATION OF INFLUENZA VIRUS VACCINE (G0008) Moose Dempsey MD Work Phone: [place]; [employer]. 01-09-2015 influenza, seasonal, injectable Moose Dempsey MD Work Phone: [employer]; [employer]. Comment on above: Site: Deltoid (Left) VIS Given: * Inactivated Influenza (10/06/2014) 01-03-2014 ADMINISTRATION OF INFLUENZA VIRUS VACCINE (G0008) Moose Dempsey MD Work Phone: [facility] [place]; [employer]. 01-03-2014 influenza, seasonal, injectable Moose Dempsey MD Work Phone: [employer]; [employer]. Comment on above: Site: Deltoid (Right )VIS Given: * Influenza, Inactivated () 06-28-2013 pneumococcal polysaccharide vaccine, 23 valent Moose Dempsey MD Work Phone: [facility]; [employer] Comment on above: Site: Deltoid (Left) VIS Given: * Pneumococcal Polysaccharide (PPSV23) (12/05/08) 12-21-2012 influenza, seasonal, injectable Moose Dempsey MD Work Phone: [facility]; [employer] Comment on above: Site: Deltoid (Left) VIS Given: * Inactivated Influenza Vaccine (10/10/08) * Inactivated Influenza Vaccine (09/24/10) * Influenza vaccine , inactivated (09/01/2011) * VIS Given (Unspecified) 12-21-2012 IMMUNIZATION ADMIN (48621) Moose Dempsey MD Work Phone: [employer]; [employer] 12-23-2011 influenza, seasonal, injectable Moose Dempsey MD Work Phone: [employer]; [employer] Comment on above: Site: Deltoid (Left) VIS Given: * Inactivated Influenza Vaccine (10/10/08) * Inactivated Influenza Vaccine (09/24/10) * Influenza vaccine , inactivated (09/01/2011) * VIS Given (Unspecified) 12-23-2011 IMMUNIZATION ADMIN (28708) Moose Dempsey MD Work Phone: [employer]; [facility] 12-17-2010 influenza, seasonal, injectable Moose Dempsey MD Work Phone: [employer]; [facility] Comment on above: Site: Deltoid (Right )VIS Given: * Inactivated Influenza Vaccine (10/10/08) * Inactivated Influenza Vaccine (09/24/10) * Inactivated Influenza Vaccine (09/24/10) * Inactivated Influenza Vaccine (09/24/10) * Inactivated Influenza Vaccine (09/24/10) * Inactivated Influenza Vaccine (09/24/10) * Inactivated Influenza Vaccine (09/24/10) * VIS Given (Unspecified) * VIS Given (Unspecified) 12-27-2009 influenza, seasonal, injectable Moose Dempsey MD Work Phone: [facility].; [facility]. Comment on above: Site: Deltoid (Left) VIS Given: * Inactivated Influenza Vaccine (10/10/08) 09-19-2009 zoster vaccine, live Moose trejo MD Work Phone: [facility]; [facility]. 06-20-2009 tetanus toxoid, redu dinh diphtheria toxoid, and acellular pertussis vaccine, adsorbed Moose Dempsey MD Work Phone: [facility]; [facility]. Payers Date Payer Category Payer Self-pay 2023 Medicare [id number] 2023 Unknown [id number] 1950 Unknown [id number] 2.16.8 [id number] 1950 Unknown [id number] 2.16.8 [id number] 1950 Unknown [id number] 2.16.8 [id number] Unknown Unknown [id number] 2.16.8 [id number] Unknown [id number] 2.16.8 [id number] Unknown [id number] 2.16.8 [id number] Unknown [id number] 2.16.8 [id number] Unknown [id number] 2.16.8 [id number] Unknown [id number] 2.16.8 [id number] Unknown [id number] 2.16.8 [id number] Unknown [id number] 2.16.8 [id number] Unknown [id number] 2.16.8 [id number] Unknown [id number] 2.16.8 [id number] Unknown [id number] 2.16.8 [id number] Social History Date Type Detail Facility (Renamed fro m Spouse) (Renamed from Spouse) [facility]; [employer] Tobacco Use: Tobacco Use: ; N ever smoker. [facility]; [employer] Start: 1950 Female [facility] Start: 08-12-2023 End: 08-31-2024 Never smoked tobacco [facility] Start: 12-30-2019 Tobacco Use Tobacco Use [facility] Tobacco smoking consumption unknown [facility]; [employer] Work Phone: NEGATED: Highlighted row No Social History Information Available No Social History Information Available [employer]; [employer] Work Phone: Medical Equipment Procedure Code Equipment Code Equipment Origin al Text Equipment Identifier Dates Discectomy, spine, cervical, anterior approach, with fusion Medtronic 2-Level Plate FDA Start: 09-14-2024 Discectomy, spine, cervical, anterior approach, with fusion Gelatin haemostatic agent [id number] FDA Start: 09-14-2024 Discectomy, spine, cervical, anterior approach, with fusion Medtronic 4.0 Fixed Angle Screw FDA Start: 09-14-2024 Discectomy, spine, cervical, anterior approach, with fusion Medtronic 4.0 Fixed Angle Screw FDA Start: 09-14-2024 Discectomy, spine, cervical, anterior approach, with fusion Medtronic 4.0 Fixed Angle Screw FDA Start: 09-14-2024 Discectomy, spine, cervical, anterior approach, with fusion Medtronic 4.0 Fixed Angle Screw FDA Start: 09-14-2024 Discectomy, spine, cervical, anterior approach, with fusion PUTTY,BONE 1CC DBX FDA Start: 09-14-2024 Discectomy, spine, cervical, anterior approach, with fusion [employer] Anatomic Cervical Allograft Spacer ([id number]) FDA Start: 09-14-2024 Discectomy, spine, cervical, anterior approach, with fusion [employer] Anatomic Cervical Allograft Spacer ([id number]) FDA Start: 09-14-2024 Discectomy, spine, cervical, anterior approach, with fusion Ligation clip, metallic [id number] FDA Start: 09-14-2024 PATCH,AMNION 2X3CM FDA Start: 01-12-2020 PATCH,AMNION 2X3CM FDA Start: 01-12-2020 PATCH,AMNION 2X3CM FDA Start: 01-12-2020 PATCH,AMNION 2X3CM FDA Start: 01-12-2020 PATCH,AMNION 2X3CM FDA Start: 01-12-2020 Goals Date Patient Goal Desired Activity /State Functional Status Date Assessment Result Facility 09-15-2024 Functional status Ambulates [facility] Work Phone: Mental Status Date Assessment Result Facility 09-15-2024 Cognitive function Voice/Name [facility] Work Phone: Clinical Notes 07-08-2024 to 09-15-2024 Note Date & Type Note Facility 09-15-2024 Progress note Note Date/Time September 15, 2024 10:08am [facility] Medical Records Department [address] [place] [address] Progress Note - Hospitalist 09/15/24 1003 MR#: [id number] Acct: [id number] Name: DINORA SPAULDING Rep #:[id number] : 1950 74 From: Piotr Flowers DO PCP: Dr. Moose Dempsey MD Status:ADM IN O Location: MS3 [id number] Subjective Subjective Feeling well. No new complaints. Slept well. Feels leg strength improved. Objective Data Objective Data Vital Signs: Vital Signs Temp Pulse Resp BP Pulse Ox O2 Del Method O2 Flow Rate 36.5 C L 71 17 134/71 H 93 Room Air 2 09/15/24 09:15 09/15/24 09:15 09/15/24 09:15 09/15/24 09:15 09/15/24 09:15 09/15/24 09:15 09/15/24 00:58 Oxygen Flow Rate (L/min) 2 Oxygen Delivery Method Room Air Weight: 76 kg Body Mass Index (BMI) 30.6 Intake & Output: Intake and Output for Last 24 Hours 09/13/24 09/14/24 09/15/24 23:59 23:59 23:59 Intake Total 1290.25 / 1290.25 250 / 250 Output Total Balance 1260.25 / 1260.25 250 / 250 Lab / Micro Data 09/15/24 05:50 09/15/24 05:50 Labs: Laboratory Results - last 24 hr 09/15/24 05:50: WBC 15.5 H, RBC 4.94, Hgb 14.4, Hct 41.7, MCV 84.4, MCH 29.1, MCHC 34.5, RDW Std Deviation 41.9, RDW Coeff of Ronn 13.5, Plt Count 269, MPV 9.8, Immature Gran % (Auto) 1.000 H, Neut % (Auto) 91.0 H, Lymph % (Auto) 5.5 L,Davidson % (Auto) 2.4, Eos % (Auto) 0.0, Baso % (Auto) 0.1, Absolute Neuts (auto) 14.1 H, Absolute Lymphs (auto) 0.85, Nucleated RBC % 0, Sodium 136, Potassium 3.9, Chloride 101, Carbon Dioxide 20.9 L, Anion Gap 14, BUN 20 H, Creatinine 1.01, Estim Creat Clear Calc 45.23 L, Est GFR (MDRD) Non-Af 58 L, BUN/CreatinineRatio 19.8, Glucose 157 H, Calcium 9.1 Micro: Microbiology 09/07/24 10:27 Swab (Method) Nasal Screen MRSA/MSSA - Final Radiography Diagnostic Testing: Radiology Impression Cervical Spine X-Ray 09/14/24 07:00 IMPRESSION: Fluoroscopic guidance was used intraoperatively. Please refer to the operative note for further details. Reading Location: [facility] Cervical Spine X-Ray 09/15/24 05:05 IMPRESSION: Unremarkable postoperative appearance. Disclaimer: Reading Location: [place] [address] Physical Exam Const alert and no apparent distress Neck Neck Narrative: cervical collar improved. Assessment & Plan Assessment/Plan (1) Status post cervical spinal fusion: PLAN: Plan 1. 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 Orthopedic surgery primary. S/p C3-[address] Valdivia on 09/14. Tolerated procedure well, no intraoperative complications noted. Postoperativepain control, DVT prophylaxis and further management per orthopedics. Follow-upa.m. CBC and BMP. 2. Hypertension/hyperlipidemia ? Normotensive postoperatively. Can resume home atenolol and hydrochlorothiazide tomorrow. Continue home statin. 3. GERD ? Continue home PPI. DVT prophylaxis: Per orthopedics Medically stable. The hospitalist service will sign off. Call with questions/concerns. Charges/Coding Visit Charges Inpatient E&M: 97950 Subs Hosp L1 09/15/24 1008 <Electronically signed by Piotr Flowers DO> Cosigner Signature (if applicable): CC: ~ Signed [facility] Work Phone: 1(963) 202-512907-17-2025 Progress note [facility] Medical Records Department [address] [place] [address] Progress Note - Hospitalist 09/15/24 1003 MR#: [id number] Acct: [id number] Name: DINORA SPAULDING Rep #:[id number] : 1950 74 From: Piotr Flowers DO PCP: Dr. Moose Dempsey MD Status:ADM IN O Location: [facility] NE223-6 Subjective Subjective Feeling well. No new complaints. Slept well. Feels leg strength improved. Objective Data Objective Data Vital Signs: Vital Signs Temp Pulse Resp BP Pulse Ox O2 Del Method O2 Flow Rate 36.5 C L 71 17 134/71 H 93 Room Air 2 09/15/24 09:15 09/15/24 09:15 09/15/24 09:15 09/15/24 09:15 09/15/24 09:15 09/15/24 09:15 09/15/24 00:58 Oxygen Flow Rate (L/min) 2 Oxygen Delivery Method Room Air Weight: 76 kg Body Mass Index (BMI) 30.6 Intake & Output: Intake and Output for Last 24 Hours 09/13/24 09/14/24 09/15/24 23:59 23:59 23:59 Intake Total 1290.25 / 1290.25 250 / 250 Output Total 30 / 30 Balance 1260.25 / 1260.25 250 / 250 Lab / Micro Data 09/15/24 05:50 09/15/24 05:50 Labs: Laboratory Results - last 24 hr 09/15/24 05:50: WBC 15.5 H, RBC 4.94, Hgb 14.4, Hct 41.7, MCV 84.4, MCH 29.1, MCHC 34.5, RDW Std Deviation 41.9, RDW Coeff of Ronn 13.5, Plt Count 269, MPV 9.8, Immature Gran % (Auto) 1.000 H, Neut % (Auto) 91.0 H, Lymph % (Auto) 5.5 L,Davidson % (Auto) 2.4, Eos % (Auto) 0.0, Baso % (Auto) 0.1, AbsoluteNeuts (auto) 14.1 H, Absolute Lymphs (auto) 0.85, Nucleated RBC % 0, Sodium 136, Potassium 3.9, Chloride 101, Carbon Dioxide 20.9 L, Anion Gap 14, BUN 20 H, Creatinine 1.01, Estim Creat Clear Calc 45.23 L, Est GFR (MDRD) Non-Af 58 L, BUN/CreatinineRatio 19.8, Glucose 157 H, Calcium 9.1 Micro: Microbiology 09/07/24 10:27 Swab (Method) Nasal Screen MRSA/MSSA - Final Radiography Diagnostic Testing: Radiology Impression Cervical Spine X-Ray 09/14/24 07:00 IMPRESSION: Fluoroscopic guidance was used intraoperatively. Please refer to the operative note for further details. Reading Location: [facility] Cervical Spine X-Ray 09/15/24 05:05 IMPRESSION: Unremarkable postoperative appearance. Disclaimer: Reading Location: [place] [address] Physical Exam Const alert and no apparent distress Neck Neck Narrative: cervical collar improved. Assessment & Plan Assessment/Plan (1) Status post cervical spinal fusion: PLAN: Plan 1. 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 Orthopedic surgery primary. S/p C3-[address] Valdivia on 09/14. Tolerated procedurewell, no intraoperative complications noted. Postoperativepain control, DVT prophylaxis and furthermanagement per orthopedics. Follow-upa.m. CBC and BMP. 2. Hypertension/hyperlipidemia ? Normotensive postoperatively. Can resume home atenolol and hydrochlorothiazide tomorrow. Continuehome statin. 3. GERD ? Continue home PPI. DVT prophylaxis: Per orthopedics Medically stable. The hospitalist service will sign off. Call with questions/concerns. Charges/Coding Visit Charges Inpatient E&M: 66017 Subs Hosp L1 09/15/24 1008 Cosigner Signature (if applicable): CC: ~ Signed [facility]07-17-2025 Radiology Diagnostic study note [facility] Imaging Services [address] [place], [place] [id number] Cerv Spine 2 or 3 Views MR#: [id number] Acct: [id number] Name: DINORA SPAULDING Rep #: [id number] 2 : 1950 F 74 From: Kori Loaiza MD PCP: Dr. Moose Dempsey MD Status: ADM IN O Study:Cerv Spine 2 or 3 Views Date of Exam: 09/15/24 Exam# [id number] Ordering Dr: Jordan Dennis PROCEDURE: CERV SPINE 2 OR 3 VIEWS 09/15/2024 REASON FOR EXAM: S/P CERVICAL FUSION TECHNIQUE: CERV SPINE 2 OR 3 VIEWS COMPARISON: 09/14/2024 FINDINGS: Status post ACDF, C3 through C5. Intact hardware. Anatomic alignment. Disc space narrowing osteophyte formation, C5 through C7. Scattered mild facet arthritis. No acute bone, soft tissue or lung apical pathology. RAD/Cerv Spine 2 or 3 Views IMPRESSION: Unremarkable postoperative appearance. Disclaimer: [facility] CC: ALLYSON Wright; Dr. Moose Dempsey MD ~ Household Manager: Signed [facility]07-16-2025 Consult note Author Nikhil Pineda [facility] Note Date/Time September 14, 2024 4:08 pm [facility] Medical Records Department [address] [place] [address] Anesthesia Postop Eval II 09/14/241607 MR#: [id number] Acct: [id number] Name: DINORA SPAULDING Rep #:[id number] : 1950 74 From: Nikhil Pineda MD PCP: Dr. Moose Dempsey MD Status:ADM IN O Y Race: C Location: [facility] MS317 -1 Anesthesia Postop Eval I Sum Postop Eval Completion status Anesthesia document: Postop Eval 1 completed: Yes Anesthesia Postop Eval I Summary Anesthesia Postop Eval I Summary: Anesthesia Postop Eval I: Assessment Summary Airway patent Yes 09/14/24 11:40 [email or web address] Spontaneous unlabored Yes 09/14/24 11:40 TREE [email or web address] respirations Mental status Asleep 09/14/24 11:40 TREE [email or web address] nausea No 09/14/24 11:40 TREE [email or web address] Vomiting No 09/14/24 11:40 TREE [email or web address] Anesthesia Postop Eval I: Fluid Summary Crystalloid volume administer 600 09/14/24 11:40 [email or web address] [email or web address] (ml) Colloids volume administered ( ml) Blood Product volume administered (ml) Total IV fluid infused 600 09/14/24 11:40 TREE [email or web address] Anesthesia Postop Eval I: Summary Notes Anesthesia Complication No 09/14/24 11:40 [email or web address] Anesthesia Complication Comment: Post-operative progress note oral airway in 09/14/24 11:[email or web address] Anesthesia: Postop Eval II Evaluation Mental status: Awake and Calm Pain Level: 3 nausea: No Vomiting: No Complications Anesthesia Complication: No 09/14/241607 <Electronically signed by Nikhil Shannon D> Date _ Nikhil Pineda MD Cosigner Signature: Date CC: ~ Signed [facility] Work Phone: 1(887) 930-852007-16-2025 Consult note Author Carlos Curry [facility] Note Date/Time September 14, 2024 2:58 pm [facility] Medical Records Department [address] [place] [address] Consultation - Hospitalist 09/14/24 1411 MR#: [id number] Acct: [id number] Name: DINORA SPAULDING Rep #:[id number] : 1950 74 From: Carlos Garcia kimberly ALEXANDER PCP: Dr. Moose Dempsey MD Status:ADM IN Location: [facility] [id number] Assessment & Plan Assessment/Plan (1) Status post cervical spinal fusion: PLAN: Plan Patient is a 74-year-old female who presented to [facility] on 09/14/2024 for planned cervical spine fusion procedure. Medicine consulted postoperatively for medical management. 1. 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 Orthopedic surgery primary. S/p C3-[address] Valdivai on 09/14. Tolerated procedure well, no intraoperative complications noted. Postoperativepain control, DVT prophylaxis and further management per orthopedics. Follow-upa.m. CBC and BMP. 2. Hypertension/hyperlipidemia ? Normotensive postoperatively. Can resume home atenolol and hydrochlorothiazide tomorrow. Continue home statin. 3. GERD ? Continue home PPI. DVT prophylaxis: Per orthopedics Total clinical time spent by myself addressing the patient's medical issues, reviewing all the data, and collaborating with patient's care team: 35 minutes. HPI Consult Data Date of Consult: 09/14/24 HPI Narrative Reason for Consultation: Postoperative medical management HPI Narrative: DINORA SPAULDING, is a 74 F who presented to [facility] on 09/14/2024for planned orthopedic procedure. Medicine consulted postoperatively for medical management. Patient had C3-5 spinal fusion procedure done with Dr. Valdivia today. Tolerated procedure well, no intraoperative complications noted. I saw the patient at bedside this afternoon postoperatively, was present. Patient was sitting up in bed and had c-collar in place. She reportedfeeling somewhat anxious and jumpy currently, which I noted is likely due to thesteroids she is getting for swelling. She denied any specific pain or discomfort currently. No other acute concerns at this time. COUNTS INCLUDE 234 BEDS AT THE [facility] Medical History Wears glasses Arthritis High cholesterol Gastric reflux Non-smoker History of pain when walking History of stress test Cataract Hyperlipidemia HTN (hypertension) Home Medications ?Medication ?Instructions ?Recorded ?Last Taken ?Type atenolol 25 mg tablet 25 mg PO DAILY 11/21/1908/30 History glucosamine 500 mg-msm 100 mg-vit 1 cap PO DAILY 11/2009/13/24 History C 20 jg-qqntc-xyln-primrose capsule hydrochlorothiazide 25 mg tablet 25 mg PO DAILY 09/13/24 History lovastatin 20 mg tablet 20 mg PO QHS 11/21/19 History multivitamin (Multiple Vitamins 1 tab PO DAILY 0 09/13/24 History tablet) omega 4-gsw-gbn-fish oil 1,000 mg 1 cap PO DAILY 11/2008/31/24 History (120 mg-180 mg) capsule (Fish Oil) turmeric root extract 500 mg 500 mg PO DAILY 11/21/19 09/13/24 History capsule omeprazole 20 mg capsule,delayed 20 mg PO .QOD 5 09/14/24 History release Allergy/AdvReac Type Severity Reaction Status Date / Time Penicillins Allergy Hives Verified 09/14/24 06:38 Family History Mother Cancer Father Heart problem Surgical History H/O removal of cyst History of lumbar laminectomy H/O: hysterectomy Social History household members: spouse housing: house Smoking Status: Never smoker alcohol intake: never what type of physical activity do you participate in: none do you feel safe at home: Yes ROS Constitutional Constitutional: Denies chills, fatigue, fever(s) or weakness Eyes Eyes: Denies change in vision Cardiovascular Cardiovascular: Denies chest pain Respiratory/Chest Respiratory/Chest: Denies shortness of breath at rest Gastrointestinal Gastrointestinal: Denies abdominal pain Musculoskeletal Musculoskeletal: Denies arthralgias, myalgias or neck pain Neurologic Neurologic: Denies dizziness, focal weakness or headache(s) Psychiatric Psychiatric: Reports anxiety Physical Exam Const alert, oriented x3 and no apparent distress Constitutional Narrative: Elderly female, class I obesity, mildly anxious appearing, otherwise sitting up in bed with cervical collar on, conversing normally, in no acute distress. General Appearance: cooperative and comfortable HEENT normocephalic, head/scalp atraumatic, hearing grossly normal bilaterally, nasal mucous membranes and turbinates normal and moist oral mucous membranes Eyes PERRL, EOMs intact bilaterally and conjunctivae normal Neck Neck Narrative: C-collar in place. Chest inspection of chest normal Resp normal respiratory effort, normal air movement, no use of accessory muscles and clear to auscultation bilaterally Cardio regular rate, regular rhythm, no murmurs and peripheral pulses 2+ throughout GI normal to inspection, nondistended, normoactive bowel sounds, soft to palpation,non-tender and non-distended Back/Spine normal ROM Extremity normal to inspection and no pedal edema Skin no rashes or lesions noted Neuro moves all extremities, no focal motor deficits and no sensory deficits noted Psych mental status grossly normal Mood & Affect: anxious Lab / Micro Data 09/01/24 09:38 09/01/24 09:38 Labs: Laboratory Results - last 24 hr 09/14/24 06:39: POC Glucose 111 H Imaging Radiology Impression Cervical Spine X-Ray 09/14/24 07:00 IMPRESSION: Fluoroscopic guidance was used intraoperatively. Please refer to the operative note for further details. Reading [facility] Charges/Coding Visit Charges Inpatient E&M: 13284 Subs Hosp L2 09/14/24 6081 <Electronically signed by Carlos Curry DO> Cosigner Signature (if applicable): CC: Dr. Guerrero Valdivia MD; Dr. Moose Dempsey MD~ Signed [facility] Work Phone: [phone]) 139-244207-16-2025 Consult note [facility] Medical Records Department [address] [place] [address] Anesthesia Postop Eval II 09/14/24 1608 MR#: [id number] Acct: [id number] Name: DINORA SPAULDING Rep #:[id number] : 1950 74 From: Nikhil Pineda MD PCP: Dr. Moose Dempsey MD Status:ADM IN O Y Race: C Location: [place] [id number] Anesthesia Postop Eval I Sum Postop Eval Completion status Anesthesia document: Postop Eval 1 completed: Yes Anesthesia Postop Eval I Summary Anesthesia Postop Eval I Summary: Anesthesia Postop Eval I: Assessment Summary Airway patent Yes 09/14/24 11:40 [email or web address] [email or web address] Spontaneous unlabored Yes 09/14/24 11:40 TREE [email or web address] respirations Mental status Asleep 09/14/24 11:40 TREE [email or web address] nausea No 09/14/24 11:40 TREE [email or web address] Vomiting No 09/14/24 11:40 TREE [email or web address] Anesthesia Postop Eval I: Fluid Summary Crystalloid volume administer 600 09/14/24 11:40 TREE [email or web address] (ml) Colloids volume administered ( ml) Blood Product volume administered (ml) Total IV fluid infused 600 09/14/24 11:40 TREE [email or web address] Anesthesia Postop Eval I: Summary Notes Anesthesia Complication No 09/14/24 11:40 TREE [email or web address] Anesthesia Complication Comment: Post-operative progress note oral airway in 09/14/24 11:[email or web address] Anesthesia: Postop Eval II Evaluation Mental status: Awake and Calm Pain Level: 3 nausea: No Vomiting: No Complications Anesthesia Complication: No 09/14/24 1608 D> Date _ Nikhil Pineda MD Cosigner Signature: Date CC: ~ Signed [facility]07-16-2025 Consult note [facility] Medical Records Department [address] [place] [address] Consultation - Hospitalist 09/14/24 1411 MR#: [id number] Acct: [id number] Name: DINORA SPAULDING Rep #:[id number] 3 : 1950 74 From: Carlos Garcia kimberly DO PCP: Dr. Moose Dempsey MD Status:ADM IN O Location: [facility] FW419-6 Assessment & Plan Assessment/Plan (1) Status post cervical spinal fusion: PLAN: Plan Patient is a 74-year-old female who presented to [facility] on 09/14/2024 for planned cervical spine fusion procedure. Medicine consulted postoperatively for medical management. 1. 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 Orthopedic surgery primary. S/p C3-[address] Valdivia on 09/14. Tolerated procedurewell, no intraoperative complications noted. Postoperativepain control, DVT prophylaxis and furthermanagement per orthopedics. Follow-upa.m. CBC and BMP. 2. Hypertension/hyperlipidemia ? Normotensive postoperatively. Can resume home atenolol and hydrochlorothiazide tomorrow. Continuehome statin. 3. GERD ? Continue home PPI. DVT prophylaxis: Per orthopedics Total clinical time spent by myself addressing the patient's medical issues, reviewing all the data, and collaborating with patient's care team: 35 minutes. HPI Consult Data Date of Consult: 09/14/24 HPI Narrative Reason for Consultation: Postoperative medical management HPI Narrative: DINORA SPAULIDNG, is a 74 F who presented to [facility] on 09/14/2024for planned orthopedic procedure. Medicine consulted postoperatively for medical management. Patient had C3-5 spinal fusion procedure done with Dr. Valdivia today. Tolerated procedure well, no intraoperative complications noted. I saw the patient at bedside this afternoon postoperatively, was present. Patient wassitting up in bed and had c-collar in place. She reportedfeeling somewhat anxious and jumpy currently, which I noted is likely due to thesteroids she is getting for swelling. She denied any specific pain or discomfort currently. No other acute concerns at this time. COUNTS INCLUDE 234 BEDS AT THE [facility] Medical History Wears glasses Arthritis High cholesterol Gastric reflux Non-smoker History of pain when walking History of stress test Cataract Hyperlipidemia HTN (hypertension) Home Medications ?Medication ?Instructions ?Recorded ?Last Taken ?Type atenolol 25 mg tablet 25 mg PO DAILY 11/21/1908/30 History glucosamine 500 mg-msm 100 mg-vit 1 cap PO DAILY 11/2009/13/24 History C 20 ge-yjgas-pjem-primrose capsule hydrochlorothiazide 25 mg tablet 25 mg PO DAILY 09/13/24 History lovastatin 20 mg tablet 20 mg PO QHS 11/21/19 History multivitamin (Multiple Vitamins 1 tab PO DAILY 0 09/13/24 History tablet) omega 4-dpd-wps-fish oil 1,000 mg 1 cap PO DAILY 11/2008/31/24 History (120 mg-180 mg) capsule (Fish Oil) turmeric root extract 500 mg 500 mg PO DAILY 11/21/19 09/13/24 History capsule omeprazole 20 mg capsule,delayed 20 mg PO .QOD 5 09/14/24 History release Allergy/AdvReac Type Severity Reaction Status Date / Time Penicillins Allergy Hives Verified 09/14/24 06:38 Family History Mother Cancer Father Heart problem Surgical History H/O removal of cyst History of lumbar laminectomy H/O: hysterectomy Social History household members: spouse housing: house Smoking Status: Never smoker alcohol intake: never what type of physical activity do you participate in: none do you feel safe at home: Yes ROS Constitutional Constitutional: Denies chills, fatigue, fever(s) or weakness Eyes Eyes: Denies change in vision Cardiovascular Cardiovascular: Denies chest pain Respiratory/Chest Respiratory/Chest: Denies shortness of breath at rest Gastrointestinal Gastrointestinal: Denies abdominal pain Musculoskeletal Musculoskeletal: Denies arthralgias, myalgias or neck pain Neurologic Neurologic: Denies dizziness, focal weakness or headache(s) Psychiatric Psychiatric: Reports anxiety Physical Exam Const alert, oriented x3 and no apparent distress Constitutional Narrative: Elderly female, class I obesity, mildly anxious appearing, otherwise sitting up in bed with cervical collar on, conversing normally, in no acute distress. General Appearance: cooperative and comfortable HEENT normocephalic, head/scalp atraumatic, hearing grossly normal bilaterally, nasal mucous membranes and turbinates normal and moist oral mucous membranes Eyes PERRL, EOMs intact bilaterally and conjunctivae normal Neck Neck Narrative: C-collar in place. Chest inspection of chest normal Resp normal respiratory effort, normal air movement, no use of accessory muscles and clear to auscultation bilaterally Cardio regular rate, regular rhythm, no murmurs and peripheral pulses 2+ throughout GI normal to inspection, nondistended, normoactive bowel sounds, soft to palpation,non-tender and non-distended Back/Spine normal ROM Extremity normal to inspection and no pedal edema Skin no rashes or lesions noted Neuro moves all extremities, no focal motor deficits and no sensory deficits noted Psych mental status grossly normal Mood & Affect: anxious Lab / Micro Data 09/01/24 09:38 09/01/24 09:38 Labs: Laboratory Results - last 24 hr 09/14/24 06:39: POC Glucose 111 H Imaging Radiology Impression Cervical Spine X-Ray 09/14/24 07:00 IMPRESSION: Fluoroscopic guidance was used intraoperatively. Please refer to the operative note for further details. Reading Location: [facility] Charges/Coding Visit Charges Inpatient E&M: 66138 Subs Hosp L2 09/14/24 4568 Cosigner Signature (if applicable): CC: Dr. Guerrero Valdivia MD; Dr. Moose Dempsey MD~ Signed [facility]07-16-2025 Consult note Author Fatuma Cueto [facility] Note Date/Time September 14, 2024 11:4 0am [facility] Medical Records Department [address] [place] [address] Anesthesia Postop Eval I 09/14/24 1139 MR#: [id number] Acct: [id number] Name: DINORA SPAULDING Rep #:[id number] 0 : 1950 74 From: Fatuma graham TREE FARMER PCP: Dr. Moose Dempsey MD Status:REG SD C Y Race: C Location: [place] [address] Anesthesia: Postop Eval I Current Vital Signs Temperature: 97.5 F Pulse Rate: 68 Blood Pressure: 143/76 Respiratory Rate: 16 Pulse Ox: 99 Oxygen Delivery Method: Simple Mask Oxygen Flow Rate (L/min): 6 Assessment Airway patent: Yes Spontaneous unlabored respirations: Yes Mental status: Asleep nausea: No Vomiting: No Anesthesia Complication: No Fluid Hydration Crystalloid volume administer (ml): 600 Total IV fluid infused: 600 Progress Note Post-operative progress note: oral airway in place Anesthesia document: Postop Eval 1 completed: Yes 09/14/24 1140 <Electronically signed by Fatuma lawton CRNA> Date _ Fatuma Cueto CRNA Cosigner Signature: Date CC: ~ Signed [facility] Work Phone: 1(956) 812-909507-16-2025 Consult note [facility] Medical Records Department [address] [place] [address] Anesthesia Postop Eval I 09/14/24 1139 MR#: [id number] Acct: [id number] Name: DINORA SPAULDING Rep #:[id number] : 1950 74 From: Fatuma graham TREE FARMER PCP: Dr. Moose Dempsey MD Status:REG SD C Y Race: C Location: [place] [address] Anesthesia: Postop Eval I Current Vital Signs Temperature: 97.5 F Pulse Rate: 68 Blood Pressure: 143/76 Respiratory Rate: 16 Pulse Ox: 99 Oxygen Delivery Method: Simple Mask Oxygen Flow Rate (L/min): 6 Assessment Airway patent: Yes Spontaneous unlabored respirations: Yes Mental status: Asleep nausea: No Vomiting: No Anesthesia Complication: No Fluid Hydration Crystalloid volume administer (ml): 600 Total IV fluid infused: 600 Progress Note Post-operative progress note: oral airway in place Anesthesia document: Postop Eval 1 completed: Yes 09/14/24 1140 leighann TREE FARMER> Date _ Fatuma Cueto TREE FARMER Cosigner Signature: Date CC: ~ Signed [facility]07-16-2025 Procedure note [facility] Medical Records Department [address] [place] [address] Operative Report 09/14/24 1135 MR#: [id number] Acct: [id number] Name: DINORA SPAULDING Rep #:[id number] : 1950 74 From: Guerrero Valdivia MD PCP: Dr. Moose Dempsey MD Status:REG SD C Location: [place] [address]-1 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, stenosis, cord compression withmyelopathy Post-Operative Diagnosis: Same Surgery/Procedure Performed: C3-5 ACDF cellar worker: Yes Sizing Machine And Drier Operator: Leeanna Dennis Tasks completed by speech pathology assistant: Closing, Implanting device, Hemostasis: Electrocautery and Retracting Type of Anesthesia: General RN Documented Start/Stop Times: Operation Date: 09/14/24 08:00 Case Time Into Pre-Op 09/14/24 06:06 Out of Pre-Op 09/14/24 08:45 Anesthesia Start 09/14/24 08:51 Into Room 09/14/24 08:51 Procedure Start 09/14/24 09:19 Procedure End 09/14/24 11:09 Anesthesia End 09/14/24 11:24 Out of Room 09/14/24 11:24 Procedure Start Time: 09:19 Procedure Stop Time: 11:09 Select all DRAINS/GRAFTS/IMPLANTS that apply: Graft Graft details: Structural allograft corticocancellous strut and Implanted device Implanted device details: Medtronic Arden-Arcade Elite plate instrumentation Estimated Blood Loss: 30 cc Specimen collected: No Description of surgery: Preoperative diagnosis: C3-5 disc degeneration with stenosis, cord compression, myelopathy Postoperative diagnosis: Same Name of procedure: C3-5 anterior cervical discectomy and fusion with plate instrumentation - Anterior cervical fusion C3-4, CPT code 87520 - Anterior plate instrumentation C3-5, CPT code 65245/59 - Anterior cervical fusion C4-5, CPT code 43610/51 -C3-4 structural allograft bone with DBX, CPT code 47504 - C4-5 structural allograft bone with DBX, CPT code 33614 Attending surgeon: Guerrero Valdivia M.D. Anesthesia: Gen. endotracheal Estimated blood loss: 30 mL Complications: None Instrumentation used: Medtronic Arden-Arcade Elite plate, LASR corticocancellous block Indications: The patient is a pleasant 74-year-old lady who presented with progressively worsening dexterity and balance. MRI showed C3-5 disc degeneration with cord compression and cord signal changes. In order to halt the progression of myelopathy, the patient requested surgical treatment. All risks and benefits of the procedure were explained to the patient. The risks include but are not limited to infection, bleeding, injury to nerves and vessels, vertebral artery injury, spinal cord injury, paralysis, vocal cord paralysis, injury to esophagus, pseudoarthrosis, need for further procedures, adjacent segment degeneration. Procedure: The patient was identified in the preoperative suite using unique patient identifiers. Skin was marked consent was taken and all questions were answered. The patient was then brought back to the operative room and a timeout was performed. General endotracheal anesthesia was given. Intraoperative neuro monitoring leads were applied. The patient was carefully positioned supine on a regular OR table. A lateral view with a C-arm was done to identify the level andto define the incision. The anterior neck was then prepped and draped in the usual fashion. A final timeout was then performed. A transverse skin incision was taken to the left of midline. Subcutaneous tissue was then divided with Bovie. Platysma was identified and cut along the incision with scissors. The fascial interval between the sternocleidomastoid and the larynx was developed. Omohyoid was identified and retracted. The esophagus with the larynx was retracted medially to reach the prevertebral fascia. Marker x-ray was performedwith bent spinal needle and disc space and levels were confirmed. Longus coli muscle was elevated on both sides at and above and below C3-5 discs. Self-retaining retractors were then placed. A long handle knife was then used to perform annulotomyat C3-4. Disc fragments were removed with the pituitary. Randolph pins were placed in C3 and C4 for disc distraction. Curettes and bur wasutilized to remove cartilage from the endplates. Discectomy wasperformed laterally up to the uncovertebral joints. Posterior osteophytes were thinned down with the bur and adequate decompression in the central and foraminal areas were performed and PLL was thinned out. Once the disc space was prepared, trials of various sizes were utilized. Thorough irrigation was given. 7 mm LASR cortical cancellous allograft bone large footprint was then fashioned in such a way that concavities were burred outinferiorly and superiorly and half cc of DBX (demineralized bone matrix) was squeezed into the cancellous portion. The graft was then inserted into the C3-4 disc space. The retractors were then repositioned and the procedure was repeated for C4-5 disc with complete discectomy. Graft size was 6 mm at with large footprint at C4-5. The grafts were found to be in good apposition with good pullout strength. A 42 mm Medtronic Arden-Arcade Elite plate was then fixed toC3-5 with 16 mm screws. A lateral x-ray was then taken to check the length of the screws. Both AP and lateral x-rays showed good positioning of plate and screws. The locking mechanism over the screw heads was then turned. Thorough irrigation was again given. Hemostasis was achieved. A Ellijay drain was then inserted. Closure was done with 3-0 Vicrylfor the platysma and subcutaneous tissue layers and 4-0 Monocryl for the skin. Closure was done around the drain. Steri-Strips were applied and dressing was done with 4 x 4 gauze and Tegaderm. A cervical collar was then applied. The patient was then woken up from anesthesia extubated and taken to PACU in stable condition. From here, the patient will be transitioned to the floor. Intraoperative neuro monitoring was performed throughout this procedure. Motor evoked potentials were run periodically. All potentials remained at baseline throughout the procedure. I was present forthe entire surgery and performed the surgery myself. Continuous Dryout Operator Helper Leeanna Dennis PA-C. My physician rehabilitation assistant was a vital part of this case. They were important in appropriate retraction during the case, and protection of soft tissues during the procedure.Their intimate knowledge of thecase and my steps aided in safe and expedient completion of the procedure as well as appropriate position of the patient during the surgery. They were also vital in assisting with closure under my direct supervision. Surgical Findings: See operative note Complications Complications: No 09/14/24 1140 Cosigner Signature (if applicable): CC: Dr. Guerrero Valdivia MD; Dr. Moose Dempsey MD~ Signed [facility]07-16-2025 Radiology Diagnostic study note [facility] Imaging Services [address], [place] [id number] Cerv Spine 2 or 3 Views MR#: [id number] Acct: [id number] Name: DINORA SPAULDING Rep #: [id number] : 1950 F 74 From: Juana Mathur MD PCP: Dr. Moose Dempsey MD Status: REG SD C Study:Cerv Spine 2 or 3 Views Date of Exam: 09/14/24 Exam# [id number] Ordering Dr: Yue Valdivia MD EXAM: XR Cervical Spine, 4 or 5 Views CLINICAL INDICATION: ANTERIOR CERVICAL FUSION C3-4 C4-5 TECHNIQUE: Frontal, lateral and bilateral oblique views of the cervical spine. COMPARISON: No relevant prior studies available. FINDINGS: VERTEBRAE: Unremarkable. No acute fracture. Normal alignment. DISC SPACES: No acute findings. No significant narrowing. SOFT TISSUES: Unremarkable. OTHER FINDINGS: A total 4 spot images were obtained. Total fluoroscopy time 6.5 seconds. Total radiation dose 1.34 mGy. RAD/Cerv Spine 2 or 3 Views IMPRESSION: Fluoroscopic guidance was used intraoperatively. Please refer to the operative note for further details. Reading [facility] CC: Dr. Guerrero Valdivia MD; Dr. Moose Dempsey MD ~ Household Manager: Signed [facility]07-16-2025 History and physical note Author Guerrero Valdivia [facility] Note Date/Time September 14, 2024 8:[address] [facility] Medical Records Department [address] [place] [address] History & Physical Exam 09/14/24 0819 MR#: [id number] Acct: [id number] Name: DINORA SPAULDING Rep #:[id number] : 1950 74 From: Guerrero Valdivia MD PCP: Dr. Moose Dempsey MD Status:REG SD C Location: [place] [address] History and Physical Date of Admission: 09/14/24 MR#: [id number] Acct: [id number] Name: DINORA SPAULDING Rep #: [id number] : 1950 Provider: Dr. Guerrero Valdivia MD Age/Sex: 74/F Location: [facility]ESSICA Status: Signed Intake Vital Signs 07/28/2512:21 09/01/2509:40 Height 5 ft 2 in 5 ft 2 in Weight: 170 lb 4 oz 166 lb BMI 31.1 30.3 Intake Visit Reasons: cervical spine Chief Complaint: Cervcal spine pre op Accompanied by: Self Is patient in pain?: Yes Pain scale (1-10): 1 Allergies Penicillins Allergy (Verified 09/01/24 10:44) Hives Medications ?Medication ?Instructions ?Recorded ?Confirmed ?Type atenolol 25 mg tablet 25 mg PO DAILY 11/21/19 09/01/24 History glucosamine 500 mg-msm 100 mg-vit 1 cap PO DAILY 11/21/19 09/01/24 History C 20 cp-qsbdl-rkjs-primrose capsule hydrochlorothiazide 25 mg tablet 25 mg PO DAILY 11/21/19 09/01/24 History lovastatin 20 mg tablet 20 mg PO QHS 11/21/19 09/01/24 History multivitamin (Multiple Vitamins 1 tab PO DAILY 11/21/19 09/01/24 History tablet) omega 6-pwf-ogv-fish oil 1,000 mg 1 cap PO DAILY 11/21/19 09/01/24 History (120 mg-180 mg) capsule (Fish Oil) turmeric root extract 500 mg 500 mg PO DAILY 11/21/19 09/01/24 Histor y capsule omeprazole 20 mg capsule,delayed 20 mg PO .QOD 07/08/24 09/01/24 History release Have you fallen in the past year?: No PFSH Medical History Wears glasses Arthritis High cholesterol Gastric reflux Non-smoker History of pain when walking History of stress test Cataract Hyperlipidemia HTN (hypertension) Surgical History H/O removal of cyst History of lumbar laminectomy H/O: hysterectomy Family History Mother CancerFather Heart problem Social History household members: spouse housing: house Smoking Status: Never smoker alcohol intake: never what type of physical activity do you participate in: none do you feel safe at home: Yes HPI cervical spine Details: This documentation accurately reflects the service provided and the decisions made by me, Dr. Guerrero Valdivia MD 09/01/24 1040. Part of today?s visit was documented by Brandy Stauffer MA, acting as scribe. DINORA SPAULDING is a 74 year old F here [...] the encounter. Provider reviewed content of the generatednote prior to signature. 07/28/24: DINORA SPAULDING is a 74 year old F here today for cervical spine MRI review. Patient states she has been having more numbness in the posterior and medial aspects of both legs. She states the numbness in the medial thigh is onlyabove the knee but the numbness in the back of the leg goes all the way down to her feet. She denies any recent injections or treatment. She notes that her feetbother her the most because of the numbness and burning pain. 07/08/2024: DINORA SPAULDING is a 74 year old F here [...] to her foot. She states it feels asthough it is asleep all the time. She has noticed that her balance is off recently. She cannot lift her left leg up when she walks and she often trips butdoes not fall. She states she has a [...] objects. She states the low back and legpain are worse at night when she lays down and tries to sleep. She does not havediabetes, heart or lung issues. She has not had a stroke and does not take bloodthinners. 10/02/23: DINORA SPAULDING is a 73 year old F here today for lumbar spine MRI review.She had a Decompression laminectomy L4-5 on 01/12/2020 [...] a lesser extent. Pain improves with sitting andleaning forward. Ortho Exam General General: Yes no [...] dermatomes. There is no hyperreflexia lower extremities. Upper extremities also show 5 x 5 strength. August's positive on the left. Romberg's is positive. Tandem gait shows severe imbalance which is worsened since last time I saw her. Exam Narrative Exam to the back shows midline paraspinal tenderness in lower lumbar spine. Neurologic evaluation of lower extremity shows 5 x 5 power normal shows normal sensations in all dermatomes. There is no hyperreflexia lower extremities. Upper extremities also show 5 x 5 strength. August's positive on the left. Romberg's is positive. Tandem gait shows severe imbalance which is worsened since last time I saw her. 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 Scoliosis type: other secondary scoliosis Spinal stenosis of lumbar region with neurogenic claudication M48.062 Spondylolisthesis, lumbar region M43.16 History of laminectomy Z98.890 Time Spent (min) 35 Assessment and Plan Assessment and Plan (1) Cervical myelopathy: Status: Acute (2) Lumbar scoliosis: Status: Acute Qualifiers: Scoliosis type: other secondary scoliosis Qualified Code(s): M41.56 - Other secondary scoliosis, lumbar region (3) Spinal stenosis of lumbar region with neurogenic claudication: Status: Acute (4) Spondylolisthesis, lumbar region: Status: Acute (5) History of laminectomy: Status: Acute Plan Again reviewed previous lumbar imaging as well as recently done cervical imaging. lumbar degenerative scoliosis in the lower lumbar spine with concavityto the right. There is postsurgical changes of laminectomy at L4-5. L3 shows significant vertebral body sclerosis on the lateral views. Flexion-extension views show subtle L3-4 spondylolisthesis without dynamic instability. MRI showspostsurgical changes of laminectomy, severe L3-4 central and foraminal stenosis,bilateral L4-5 foraminal stenosis, left L5-S1 lateral recess stenosis, L2-3 moderate stenosis. Cervical spine shows multilevel cervical disc degeneration with C3-5 severe stenosis with cord compression without cord signal changes. Moderate central stenosis C5-6 also noticed. Flexion-extension views show mild instability at C3-4 and C4-5 but no significant movement at C5-6. 1. Essential tremor - The patient reports a tremor in her neck, although it is not confirmed by her primary care physician. - Her family history includes her father having essential tremor, which requiredmedication and surgery. - The plan is to monitor the tremor and consider further evaluation if symptoms worsen. 2. Post-surgical recovery - The patient will undergo cervical spine surgery involving C3-5 vertebrae. - Post-operatively, she will have a collar and a drain, with plans for x-rays and discharge the following day if stable. - She is advised to maintain mobility and a healthy diet to promote healing and reduce complications. - Follow-up appointments are scheduled to monitor recovery and adjust the collaras needed. - Stop taking fish oil at least one week before surgery. - Maintain mobility and a healthy diet post-surgery to promote healing. - Use a recliner or wedge pillows to sleep in an elevated position during the first week post-surgery. - Follow up with physical therapy as advised after surgery. - Avoid heavy lifting and excessive twisting for the first three months post- surgery. - Begin driving once the collar is removed, approximately two to three weeks post-surgery. Recommend C3-5 ACDF. Discussed this procedure in detail and explained the risks, benefits and alternatives. The risks of surgery include but are not limited to infection, bleeding, injury to nerves and vessels, hematoma formation, dysphagia, dysphonia, recurrent laryngeal nerve injury, Ej syndrome, DVT, pulmonary embolism, pneumonia, atelectasis, cardiopulmonary event, pseudoarthrosis, hardware failure, adjacent segment degeneration, need for further surgery, nerve root injury, spinal cord injury. Answered all questions to the patient?s satisfaction. Patient understands and agrees to proceed with surgery. Consent was signed. 09/14/24 0819 <Electronically signed by Guerrero Valdivia MD> Cosigner Signature (if applicable): CC: Dr. Guerrero Valdivia MD; Dr. Moose Dempsey MD~ Signed [facility] Work Phone: 1(767) 110-892107-16-2025 Consult note Author Nikhil Pineda [facility] Note Date/Time September 14, 2024 7:35 am [facility] Medical Records Department [address] [place] [address] Pre-Anesthesia Evaluation 09/14/24 0734 MR#: [id number] Acct: [id number] Name: DINORA SPAULDING Rep #:[id number] : 1950 74 From: Nikhil Pineda MD PCP: Dr. Moose Dempsey MD Status:REG SD C Y Race: C Location: [place] [address] ASA Classification* ASA Classification ASA Classification: 2 Assessment & Plan Anesthesia* Anesthesia Assessment Anesthesia Assessment: Discussed sedation and/or anesthesia options, risks, benefits, and alternatives with patient/parents/legal guardian/POA. Questions invited. The patient/parents/legal guardian/POA seems to understand and agrees to proceedwith anesthesia plan. Reviewed the physical assessment, medical history, allergy history and patient home medications list prior to surgery/procedure/anesthetic and documented any changes. Performed airway and anesthesia risk assessments. Anesthesia Type Anesthesia Type: General History Source History Obtained from:: Patient and Chart Anesthesia Focused Assessment* Temperature: 98.9 F Pulse Rate: 73 Blood Pressure: 155/94 Respiratory Rate: 16 Pulse Ox: 97 Oxygen Delivery Method: Room Air Airway Assessment Mouth opens: >3 cm Mallampati Score: II Teeth Condition: Intact and Caps/Crowns (front top teeth with crowns and bridge) Labs Anesthesia Preop lab: CBC WBC 6.0 K/mm3 (4.4-11.0) 09/01/24 09:38 09/01/24 RBC 5.08 M/mm3 (4.2-5.4) 09/01/24 09:38 09/01/24 Hgb 14.9 g/dL (12.0-15.0) 09/01/24 09:38 09/01/24 Hct 42.7 % (37-47) 09/01/24 09:38 09/01/24 Plt Count 279 K/mm3 (150-450) 09/01/24 09:38 09/01/24 CHEMISTRY Potassium 3.8 mmol/L (3.3-5.1) 09/01/24 09:38 09/01/24 Sodium 141 mmol/L (133-145) 09/01/24 09:38 09/01/24 Magnesium 2.1 mg/dL (1.5-2.2) 09/01/24 09:38 09/01/24 BUN 18 mg/dL (4-19) 09/01/24 09:38 09/01/24 Creatinine 0.92 mg/dL (0.70-1.20) 09/01/24 09:38 09/01/24 Glucose 114 mg/dL (70-99) H 09/01/24 09:38 09/01/24 POC Glucose 111 mg/dL (74-106) H 09/14/24 06:39 09/14/24 COAG Pre-Assessment Diagnosis/Proposed Procedure Planned Operative Procedure(s): ANTEROIR CERVICAL DISC FUSION C3-4 AND C4-5 Anesthesia History Anesthesia History - methods time analyst: Anesthesia History - methods time analyst Hx Hospitalization No 08/31/24 10:11 Any Problems With Anesthesia No 08/31/24 10:11 Cholinesterase deficiency No 08/31/24 10:11 You/Your Family Experience No 08/31/24 10:11 fever (hyperthermia) with Relationship Recent Exposure to Contagious No 09/14/24 06:42 Disease Does patient have nerve No 08/31/24 10:11 stimulator Patient instructed to have device shut off --Does patient have Pacemaker No 09/14/24 06:42 or ICD? When Was Last Pacemaker Check QUESTION #4 FULL TEXT: You/Your Family Experience fever (hyperthermia) with Anesthesia Last Oral Intake Last Oral intake: Last Oral Intake NPO since 04:00 09/14/24 06:42 Meds taken in AM with sips of Yes 09/14/24 06:42 water? Meds patient instructed to prilosec and atenolol 09/14/24 06:42 take am of surgery PONV PONV - methods time analyst: PONV - methods time analyst Female Yes 08/31/24 10:11 HX of Motion Sickness No 08/31/24 10:11 HX of N/V After Surgery No 08/31/24 10:11 Non-Smoker Yes 08/31/24 10:11 Duration of Surgery greater Yes 08/31/24 10:11 than 60 minutes Number of Risk Factors 3 08/31/24 10:11 PONV Score Moderate Risk 08/31/24 10:11 Height & Weight Height & Weight: Anesthesia: Height & Weight Height 5 ft 2 in 09/14/24 06:42 Weight: 76 kg 09/14/24 06:42 Body Mass Index (BMI) 30.6 09/14/24 06:42 Respiratory Assessment Respiratory Assessment - methods time analyst: Respiratory Tract Infection Hx - methods time analyst Hx Respiratory Tract Infection No 08/31/24 10:11 STOP Sleep Apnea STOP Sleep Apnea - methods time analyst: STOP Sleep Apnea - methods time analyst Hx Hypertension Yes: CONTROLLED WITH MEDS 08/31/24 [...] Tobacco Use History Tobacco Use History - methods time analyst: Tobacco Use History - methods time analyst Tobacco Use Smoking Status Never smoker 08/31/24 10:11 Hx Tobacco Use No 08/31/24 10:11 Years Smoking Packs Smoked per Day Smoking Cessation Date was within the last 15 years Hx Smoking Cessation Date Hx Smoking Cessation Counseling Hematologic Medial History Hematologic Hx - methods time analyst: 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 Specify any problems Hx of Preganancy in last 3 No 08/31/24 10:11 Months Nurse Filling Out Transfusion [email or web address] 08/31/24 10:11 & Questions: Date: 08/31/24 08/31/24 10:11 Time: 10:19 08/31/24 10:11 Patient unable to answer at this time (ie. confused, unrespo /Reproduction History /Reproductive History - methods time analyst: /Reproductive Hx- methods time analyst Hx Now Gestational Age (in weeks): EDC: Hx Hx Para Hx Section SAB Active Medications Active Medications: Current Medications Generic Name Dose Route Start Last Admin Trade Name Freq PRN Reason Stop Dose Admin Clindamycin Phosphate 900 mg in 50 mls @ 75 mls/hr 09/14/24 07:30 Cleocin IV 09/14/24 08:09 INTRAOP ONE Tranexamic Acid 1,000 mg/ 110 mls @ 440 mls/hr 09/14/24 07:30 Sodium Chloride IV 09/14/24 07:44 INTRAOP ONE Tranexamic Acid 1,000 mg/ 110 mls @ 440 mls/hr 09/14/24 07:30 Sodium Chloride IV 09/14/24 07:44 INTRAOP ONE Magnesium Sulfate 1 gm/ 102 mls @ 408 mls/hr 09/14/24 07:30 09/14/24 06:59 Dextrose IV 09/14/24 07:44 408 mls/hr PREOP ONE Administration Lactated Ringer's 1,000 mls @ 15 mls/hr 09/14/24 06:15 09/14/24 06:58 IV 15 mls/hr .Q48H ROSE Administration Insulin Human Lispro 1 - 6 unit 09/14/24 07:30 Insulin Lispro 100 Unit/Ml Insuln.Pen SC Q4H PRN PRN BG>/= 180, SEE PROTOCOL Protocol PFSH Medical History Wears glasses Arthritis High cholesterol Gastric reflux Non-smoker History of pain when walking History of stress test Cataract Hyperlipidemia HTN (hypertension) Home Medications ?Medication ?Instructions ?Recorded ?Last Taken ?Type atenolol 25 mg tablet 25 mg PO DAILY 11/21/1908/30 History glucosamine 500 mg-msm 100 mg-vit 1 cap PO DAILY 11/2009/13/24 History C 20 ln-wizxa-axne-primrose capsule hydrochlorothiazide 25 mg tablet 25 mg PO DAILY 09/13/24 History lovastatin 20 mg tablet 20 mg PO QHS 11/21/19 History multivitamin (Multiple Vitamins 1 tab PO DAILY 0 09/13/24 History tablet) omega 8-eph-zeu-fish oil 1,000 mg 1 cap PO DAILY 11/2008/31/24 History (120 mg-180 mg) capsule (Fish Oil) turmeric root extract 500 mg 500 mg PO DAILY 11/21/19 09/13/24 History capsule omeprazole 20 mg capsule,delayed 20 mg PO .QOD 5 09/14/24 History release Allergy/AdvReac Type Severity Reaction Status Date / Time Penicillins Allergy Hives Verified 09/14/24 06:38 Family History Mother Cancer Father Heart problem Surgical History H/O removal of cyst History of lumbar laminectomy H/O: hysterectomy Social History household members: spouse housing: house Smoking Status: Never smoker alcohol intake: never what type of physical activity do you participate in: none do you feel safe at home: Yes Review of Systems (Anesthesia) ROS Narrative System reviewed and no additional complaints, except as documented. Physical Exam Const alert and oriented x3 Neck full ROM Resp normal respiratory effort and normal air movement Cardio regular rate Back/Spine normal ROM Neuro oriented x3 and moves all extremities Motor Exam: muscle tone normal throughout 09/14/24 0735 <Electronically signed by Nikhil Shannon D> Date _ Nikhil Pineda MD Cosigner Signature: Date CC: ~ Signed [facility] Work Phone: 1(848) 203-657707-16-2025 History and physical note [facility] Medical Records Department [address] [place] [address] History & Physical Exam 09/14/24 0819 MR#: [id number] Acct: [id number] Name: DINORA SPAULDING Rep #:[id number] : 1950 74 From: Guerrero Valdivia MD PCP: Dr. Moose Dempsey MD Status:REG SD C Location: [place] [address] History and Physical Date of Admission: 09/14/24 MR#: [id number] Acct: [id number] Name: DINORA SPAULDING Rep #: [id number] : 1950 Provider: Dr. Guerrero Valdivia MD Age/Sex: 74/F Location: [facility] Status: Signed Intake Vital Signs 07/28/2512:21 09/01/2509:40 Height 5 ft 2 in 5 ft 2 in Weight: 170 lb 4 oz 166 lb BMI 31.1 30.3 Intake Visit Reasons: cervical spine Chief Complaint: Cervcal spine pre op Accompanied by: Self Is patient in pain?: Yes Pain scale (1-10): 1 Allergies Penicillins Allergy (Verified 09/01/24 10:44) Hives Medications ?Medication ?Instructions ?Recorded ?Confirmed ?Type atenolol 25 mg tablet 25 mg PO DAILY 11/21/19 09/01/24 History glucosamine 500 mg-msm 100 mg-vit 1 cap PO DAILY 11/21/19 09/01/24 History C 20 rt-aoahv-eqrd-primrose capsule hydrochlorothiazide 25 mg tablet 25 mg PO DAILY 11/21/19 09/01/24 History lovastatin 20 mg tablet 20 mg PO QHS 11/21/19 09/01/24 History multivitamin (Multiple Vitamins 1 tab PO DAILY 11/21/19 09/01/24 History tablet) omega 8-djs-mic-fish oil 1,000 mg 1 cap PO DAILY 11/21/19 09/01/24 History (120 mg-180 mg) capsule (Fish Oil) turmeric root extract 500 mg 500 mg PO DAILY 11/21/19 09/01/24 Histor y capsule omeprazole 20 mg capsule,delayed 20 mg PO .QOD 07/08/24 09/01/24 History release Have you fallen in the past year?: No PFSH Medical History Wears glasses Arthritis High cholesterol Gastric reflux Non-smoker History of pain when walking History of stress test Cataract Hyperlipidemia HTN (hypertension) Surgical History H/O removal of cyst History of lumbar laminectomy H/O: hysterectomy Family History Mother CancerFather Heart problem Social History household members: spouse housing: house Smoking Status: Never smoker alcohol intake: never what type of physical activity do you participate in: none do you feel safe at home: Yes HPI cervical spine Details: This documentation accurately reflects the service provided and the decisions made by me, Dr. Guerrero Valdivia MD 09/01/24 1040. Part of today?s visit was documented by Brandy Stauffer MA, acting as scribe. DINORA SPAULDING is a 74 year old F here today for cervical spine pre op. Patient states that she wouldlike to discuss more about the surgery. Her [...] the encounter. Provider reviewed content of the generatednote prior to signature. 07/28/24: DINORA SPAULDING is a 74 year old F here today for cervical spine MRI review. Patient states she has been having more numbness in the posterior and medial aspects of both legs. She states the numbness in the medial thigh is onlyabove the knee but the numbness in the back of the leg goes all the way down to her feet. She denies any recent injections or treatment. She notes that her feetbotherher the most because of the numbness and burning pain. 07/08/2024: DINORA SPAULDING is a 74 year old F here [...] to her foot. She states it feels asthoughit is asleep all the time. She has noticed that her balance is off recently. She cannot lift her left leg up when she walks and she often trips butdoes not fall. She states she has a [...] per day on. She would like to discussher options at this point. She does not have issues writing, texting or holding objects. She statesthe low back and legpain are worse at night when she lays down and tries to sleep. She does not havediabetes, heart or lung issues. She has not had a stroke and does not take bloodthinners. 10/02/23: DINORA SPAULDING is a 73 year old F here today for lumbar spine MRI review.She had a Decompression laminectomy L4-5 on 01/12/2020 [...] a lesser extent. Pain improves with sitting andleaning forward. Ortho Exam General General: Yes no [...] dermatomes. There is no hyperreflexia lower extremities. Upper extremities also show 5 x 5 strength. August's positive on the left. Romberg's is positive. Tandem gait shows severe imbalance which is worsened since last time I saw her. Exam Narrative Exam to the back shows midline paraspinal tenderness in lower lumbar spine. Neurologic evaluation of lower extremity shows 5 x 5 power normal shows normal sensations in all dermatomes. There is no hyperreflexia lower extremities. Upper extremities also show 5 x 5 strength. August's positive on the left. Romberg's is positive. Tandem gait shows severe imbalance which is worsened since last time I saw her. 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 Scoliosis type: other secondary scoliosis Spinal stenosis of lumbar region with neurogenic claudication M48.062 Spondylolisthesis, lumbar region M43.16 History of laminectomy Z98.890 Time Spent (min) 35 Assessment and Plan Assessment and Plan (1) Cervical myelopathy: Status: Acute (2) Lumbar scoliosis: Status: Acute Qualifiers: Scoliosis type: other secondary scoliosis Qualified Code(s): M41.56 - Other secondary scoliosis, lumbar region (3) Spinal stenosis of lumbar region with neurogenic claudication: Status: Acute (4) Spondylolisthesis, lumbar region: Status: Acute (5) History of laminectomy: Status: Acute Plan Again reviewed previous lumbar imaging as well as recently done cervical imaging. lumbar degenerative scoliosis in the lower lumbar spine with concavityto the right. There is postsurgical changes of laminectomy at L4-5. L3 shows significant vertebral body sclerosis on the lateral views. Flexion-exte nsion views show subtle L3-4 spondylolisthesis without dynamic instability. MRI showspostsurgical changes of laminectomy, severe L3-4 central and foraminal stenosis,bilateral L4-5 foraminal stenosis,left L5-S1 lateral recess stenosis, L2-3 moderate stenosis. Cervical spine shows multilevel cervical disc degeneration with C3-5 severe stenosis with cord compression without cord signal changes. Moderate central stenosis C5-6 also noticed. Flexion-extension views show mild instability at C3-4 and C4-5 but no significant movement at C5-6. 1. Essential tremor - The patient reports a tremor in her neck, although it is not confirmed by her primary care physician. - Her family history includes her father having essential tremor, which requiredmedication and surgery. - The plan is to monitor the tremor and consider further evaluation if symptoms worsen. 2. Post-surgical recovery - The patient will undergo cervical spine surgery involving C3-5 vertebrae. - Post-operatively, she will have a collar and a drain, with plans for x-rays and discharge the following day if stable. - She is advised to maintain mobility and a healthy diet to promote healing and reduce complications. - Follow-up appointments are scheduled to monitor recovery and adjust the collaras needed. - Stop taking fish oil at least one week before surgery. - Maintain mobility and a healthy diet post-surgery to promote healing. - Use a recliner or wedge pillows to sleep in an elevated position during the first week post-surgery. - Follow up with physical therapy as advised after surgery. - Avoid heavy lifting and excessive twisting for the first three months post-surgery. - Begin driving once the collar is removed, approximately two to three weeks post-surgery. Recommend C3-5 ACDF. Discussed this procedure in detail and explained the risks, benefits and alternatives. The risks of surgery include but are not limited to infection, bleeding, injury to nerves and vessels, hematoma formation, dysphagia, dysphonia, recurrent laryngeal nerve injury, Ej syndrome, DVT, pulmonary embolism, pneumonia, atelectasis, cardiopulmonary event, pseudoarthrosis, hardware failure, adjacent segment degeneration, need for further surgery, nerve root injury, spinal cord injury. Answered all questions to the patient?s satisfaction. Patient understands and agrees to proceed with surgery. Consent was signed. 09/14/24818 Cosigner Signature (if applicable): CC: Dr. Guerrero Valdivia MD; Dr. Moose Dempsey MD~ Signed [facility]07-16-2025 [facility] Medical Records Department [address] [place] [address] History Physical Exam 09/14/24818 MR#: [id number] Acct: [id number] Name: DINORA SPAULDING Rep #: [id number] : 1950 74 From: Guerrero Valdivia MD PCP: Dr. Moose Dempsey MD Status:[facility] Location: [place] [address] History and Physical Date of Admission: 09/14/24 MR#: [id number] Acct: [id number] Name: DINORA SPAULDING Rep #: [id number] : 1950 Provider: Dr. Guerrero Valdivia MD Age/Sex: 74/F Location: [facility] Status: Signed Intake Vital Signs 07/28/2512:21 09/01/2509:40 Height 5 ft 2 in 5 ft [...] tablet 25 mg PO DAILY 11/21/19 09/01/24 History glucosamine 500 mg-msm 100 mg-vit 1 cap PO DAILY 11/21/19 09/01/24 History C 20 hs-maqso-ieql-primrose capsule hydrochlorothiazide 25 mg tablet 25 mg PO DAILY 11/21/19 09/01/24 History lovastatin 20 mg tablet 20 mg PO QHS 11/21/19 09/01/24 History multivitamin (Multiple Vitamins 1 tab PO DAILY 11/21/19 09/01/24 History tablet) omega 7-yut-vud-fish oil 1,000 mg 1 cap PO DAILY 11/21/19 09/01/24 History (120 mg-180 mg) capsule (Fish Oil) turmeric root extract 500 mg 500 mg PO DAILY 11/21/19 09/01/24 History capsule omeprazole 20 mg capsule,delayed 20 mg PO .QOD 07/08/24 09/01/24 History release Have you fallen in the past year?: No PFSH Medical History Wears glasses Arthritis High cholesterol Gastric reflux Non-smoker History of pain when walking History of stress test Cataract Hyperlipidemia HTN (hypertension) Surgical History H/O removal of cyst History of lumbar laminectomy H/O: hysterectomy Family History Mother CancerFather Heart problem Social History household members: spouse [...] Brandy Stauffer MA, acting as scribe. DINORA SPAULDING is a 74 year old F here [...] will have a collar and a drain post- operatively, with plans for x-rays and discharge the [...] generated note prior to signature. 07/28/24: DINORA SPAULDING is a 74 year old F here today for cervical spine MRI review. Patient states she has been having more numbness in the posterior and medial aspects of both legs. She states the numbness in the medial thigh is only above the knee (more content not included)...[facility]07-16-2025 Consult note [facility] Medical Records Department [address] [place] [address] Pre-Anesthesia Evaluation 09/14/24 0734 MR#: [id number] Acct: [id number] Name: DINORA SPAULDING Rep #:[id number] : 1950 74 From: Nikhil Pineda MD PCP: Dr. Moose Dempsey MD Status:REG SD C Y Race: C Location: [place] [address] ASA Classification* ASA Classification ASA Classification: 2 Assessment & Plan Anesthesia* Anesthesia Assessment Anesthesia Assessment: Discussed sedation and/or anesthesia options, risks, benefits, and alternatives with patient/parents/legal guardian/POA. Questions invited. The patient/parents/legal guardian/POA seems to understand and agrees to proceedwith anesthesia plan. Reviewed the physical assessment, medical history, allergy history and patient home medications list prior to surgery/procedure/anesthetic and documented any changes. Performed airway and anesthesia risk assessments. Anesthesia Type Anesthesia Type: General History Source History Obtained from:: Patient and Chart Anesthesia Focused Assessment* Temperature: 98.9 F Pulse Rate: 73 Blood Pressure: 155/94 Respiratory Rate: 16 Pulse Ox: 97 Oxygen Delivery Method: Room Air Airway Assessment Mouth opens: >3 cm Mallampati Score: II Teeth Condition: Intact and Caps/Crowns (front top teeth with crowns and bridge) Labs Anesthesia Preop lab: CBC WBC 6.0 K/mm3 (4.4-11.0) 09/01/24 09:38 09/01/24 RBC 5.08 M/mm3 (4.2-5.4) 09/01/24 09:38 09/01/24 Hgb 14.9 g/dL (12.0-15.0) 09/01/24 09:38 09/01/24 Hct 42.7 % (37-47) 09/01/24 09:38 09/01/24 Plt Count 279 K/mm3 (150-450) 09/01/24 09:38 09/01/24 CHEMISTRY Potassium 3.8 mmol/L (3.3-5.1) 09/01/24 09:38 09/01/24 Sodium 141 mmol/L (133-145) 09/01/24 09:38 09/01/24 Magnesium 2.1 mg/dL (1.5-2.2) 09/01/24 09:38 09/01/24 BUN 18 mg/dL (4-19) 09/01/24 09:38 09/01/24 Creatinine 0.92 mg/dL (0.70-1.20) 09/01/24 09:38 09/01/24 Glucose 114 mg/dL (70-99) H 09/01/24 09:38 09/01/24 POC Glucose 111 mg/dL (74-106) H 09/14/24 06:39 09/14/24 COAG Pre-Assessment Diagnosis/Proposed Procedure Planned Operative Procedure(s): ANTEROIR CERVICAL DISC FUSION C3-4 AND C4-5 Anesthesia History Anesthesia History - methods time analyst: Anesthesia History - methods time analyst Hx Hospitalization No 08/31/24 10:11 Any Problems With Anesthesia No 08/31/24 10:11 Cholinesterase deficiency No 08/31/24 10:11 You/Your Family Experience No 08/31/24 10:11 fever (hyperthermia) with Relationship Recent Exposure to Contagious No 09/14/24 06:42 Disease Does patient have nerve No 08/31/24 10:11 stimulator Patient instructed to have device shut off --Does patient have Pacemaker No 09/14/24 06:42 or ICD? When Was Last Pacemaker Check QUESTION #4 FULL TEXT: You/Your Family Experience fever (hyperthermia) with Anesthesia Last Oral Intake Last Oral intake: Last Oral Intake NPO since 04:00 09/14/24 06:42 Meds taken in AM with sips of Yes 09/14/24 06:42 water? Meds patient instructed to prilosec and atenolol 09/14/24 06:42 take am of surgery PONV PONV - methods time analyst: PONV - methods time analyst Female Yes 08/31/24 10:11 HX of Motion Sickness No 08/31/24 10:11 HX of N/V After Surgery No 08/31/24 10:11 Non-Smoker Yes 08/31/24 10:11 Duration of Surgery greater Yes 08/31/24 10:11 than 60 minutes Number of Risk Factors 3 08/31/24 10:11 PONV Score Moderate Risk 08/31/24 10:11 Height & Weight Height & Weight: Anesthesia: Height & Weight Height 5 ft 2 in 09/14/24 06:42 Weight: 76 kg 09/14/24 06:42 Body Mass Index (BMI) 30.6 09/14/24 06:42 Respiratory Assessment Respiratory Assessment - methods time analyst: Respiratory Tract Infection Hx - methods time analyst Hx Respiratory Tract Infection No 08/31/24 10:11 STOP Sleep Apnea STOP Sleep Apnea - methods time analyst: STOP Sleep Apnea - methods time analyst Hx Hypertension Yes: CONTROLLED WITH MEDS 08/31/24 [...] than talking or can be heard through closeddoors)? 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 Specify any problems Hx of Preganancy in last 3 No 08/31/24 10:11 Months Nurse Filling Out Transfusion [email or web address] 08/31/24 10:11 & Questions: Date: 08/31/24 08/31/24 10:11 Time: 10:19 08/31/24 10:11 Patient unable to answer at this time (ie. confused, unrespo /Reproduction History /Reproductive History - methods time analyst: /Reproductive Hx- methods time analyst Hx Now Gestational Age (in weeks): EDC: Hx Hx Para Hx Section SAB Active Medications Active Medications: Current Medications Generic Name Dose Route Start Last Admin Trade Name Freq PRN Reason Stop Dose Admin Clindamycin Phosphate 900 mg in 50 mls @ 75 mls/hr 09/14/24 07:30 Cleocin IV 09/14/24 08:09 INTRAOP ONE Tranexamic Acid 1,000 mg/ 110 mls @ 440 mls/hr 09/14/24 07:30 Sodium Chloride IV 09/14/24 07:44 INTRAOP ONE Tranexamic Acid 1,000 mg/ 110 mls @ 440 mls/hr 09/14/24 07:30 Sodium Chloride IV 09/14/24 07:44 INTRAOP ONE Magnesium Sulfate 1 gm/ 102 mls @ 408 mls/hr 09/14/24 07:30 09/14/24 06:59 Dextrose IV 09/14/24 07:44 408 mls/hr PREOP ONE Administration Lactated Ringer's 1,000 mls @ 15 mls/hr 09/14/24 06:15 09/14/24 06:58 IV 15 mls/hr .Q48H ROSE Administration Insulin Human Lispro 1 - 6 unit 09/14/24 07:30 Insulin Lispro 100 Unit/Ml Insuln.Pen SC Q4H PRN PRN BG>/= 180, SEE PROTOCOL Protocol COUNTS INCLUDE 234 BEDS AT THE [facility] Medical History Wears glasses Arthritis High cholesterol Gastric reflux Non-smoker History of pain when walking History of stress test Cataract Hyperlipidemia HTN (hypertension) Home Medications ?Medication ?Instructions ?Recorded ?Last Taken ?Type atenolol 25 mg tablet 25 mg PO DAILY 11/21/1908/30 History glucosamine 500 mg-msm 100 mg-vit 1 cap PO DAILY 11/2009/13/24 History C 20 xb-ooysc-zsht-primrose capsule hydrochlorothiazide 25 mg tablet 25 mg PO DAILY 09/13/24 History lovastatin 20 mg tablet 20 mg PO QHS 11/21/19 History multivitamin (Multiple Vitamins 1 tab PO DAILY 0 09/13/24 History tablet) omega 8-oov-rml-fish oil 1,000 mg 1 cap PO DAILY 11/2008/31/24 History (120 mg-180 mg) capsule (Fish Oil) turmeric root extract 500 mg 500 mg PO DAILY 11/21/19 09/13/24 History capsule omeprazole 20 mg capsule,delayed 20 mg PO .QOD 5 09/14/24 History release Allergy/AdvReac Type Severity Reaction Status Date / Time Penicillins Allergy Hives Verified 09/14/24 06:38 Family History Mother Cancer Father Heart problem Surgical History H/O removal of cyst History of lumbar laminectomy H/O: hysterectomy Social History household members: spouse housing: house Smoking Status: Never smoker alcohol intake: never what type of physical activity do you participate in: none do you feel safe at home: Yes Review of Systems (Anesthesia) ROS Narrative System reviewed and no additional complaints, except as documented. Physical Exam Const alert and oriented x3 Neck full ROM Resp normal respiratory effort and normal air movement Cardio regular rate Back/Spine normal ROM Neuro oriented x3 and moves all extremities Motor Exam: muscle tone normal throughout 09/14/24 0735 D> Date _ Nikhil Santoyo Signature: Date CC: ~ Signed [facility]07-03-2025 Hospital Discharge instructionsAmbulatory Orders* 12 Lead EKG [[facility]] Time Frame: 09/01/24, Location: None Selected Additional Instructions Keep Tegaderm and gauze clean and dry. After 5 days remove the Tegaderm and gauze and cover incision with a Band-Aid. Replace Band-Aid daily thereafter. Wear cervical collar full-time for the first 2 weeks. Eat soft solid foods as needed for dysphagia. Sleep in a recliner to help with swelling. No bending, lifting, twisting. Follow-up in clinic in 2 weeks.[facility] Work Phone: 1(233) 160-311705-09-2025 Evaluation note* Diagnosis Onset Date Resolution Status Admit Date Cervical myelopathy acute July 082024 7:55am History of laminectomy acute 2024 7:55am Lumbar scoliosis acute July 08, 2024 7:55am Spinal stenosis of lumbar re gion with neurogenic claudication acute July 08, 2024 7:55am Spondylolisthesis, lumbar region acu te July 08, 2024 7:55am [facility] Work Phone: 1(930) 856-496305-09-2025 Evaluation note* Diagnosis Onset Date Resolution Status Admit Date Cervical myelopathy acute July 082024 7:55am History of laminectomy acute 2024 7:55am Lumbar scoliosis acute July 08, 2024 7:55am Spinal stenosis of lumbar re gion with neurogenic claudication acute July 08, 2024 7:55am Spondylolisthesis, lumbar region acu te July 08, 2024 7:55am Cervical myelopathy acute July 012024 1:16pm History of laminectomy acute 2024 1:16pm Lumbar scoliosis acute June 1:16pm Spinal stenosis of lumbar re gion with neurogenic claudication acute July 28, 2024 1:16pm Spondylolisthesis, lumbar region acu te July 28, 2024 1:16pm [facility] Work Phone: [phone]) [phone] Evaluation note* Diagnosis Onset Date Resolution Status Admit Date Cervical myelopathy acute July 082024 7:55am History of laminectomy acute 2024 7:55am Lumbar scoliosis acute July 08, 2024 7:55am Spinal stenosis of lumbar re gion with neurogenic claudication acute July 08, 2024 7:55am Spondylolisthesis, lumbar region acu te July 08, 2024 7:55am Cervical myelopathy acute July 012024 1:16pm History of laminectomy acute 2024 1:16pm Lumbar scoliosis acute June 1:16pm Spinal stenosis of lumbar re gion with neurogenic claudication acute July 28, 2024 1:16pm Spondylolisthesis, lumbar region acu te July 28, 2024 1:16pm Cervical myelopathy acute September 01, 2024 10:23am History of laminectomy acute 2024 10:23am Lumbar scoliosis acute August 10:23am Spinal stenosis of lumbar re gion with neurogenic claudication acute Aug 10:23am Spondylolisthesis, lumbar region acu te September 01, 2024 10:23am Status post cervical spinal fusion acute September 14, 2024 11:18am [facility] Work Phone: Reason for referral (narrative)No reason for referral information availableWChillic[facility] Work Phone: Summary Purpose Family History [...] Status:Active Commen ts:Mother. vascular dementia Status:Active Comments:Sailaja tsauffer Cerebrovascular Accident Status:Active Comment s:aunts Colon Cancer [...] attack Status:Active Commen ts:Mother. vascular dementia Status:Active Comments:Saialja satuffer Cerebrovascular Accident Status:Active Comment s:aunts Colon Cancer [...] stauffer Advance Directives No Advanced Directives Records Found Advance Directive Response Recorded Date/ Time Do you have a Healthcare Power of Filler Blender? Yes September 14, 2024 2:07pm Name of Medical Power of Filler Blender September 14, 2024 2:07pm Chief Complaint and Reason for Visit Chief [...] 2024 1:16pm Spondylolisthesis, lumbar region June 1:16pm Chief Complaint Admit Date LUMBAR SPINE July 08, 2024 7:55am CERIVCAL MYELOPATHY July 22, 2024 7:44a m CERVICAL SPINE July 28, 2024 1:16p m RM 3 July 28, 2024 1:36p m cervical spine September 01, 2024 10:23 am Anterior Cervical Fusion C3-4 and C4-5 J oscar 2024 8:19am Anterior Cervical Fusion C3-4 and C4-5 J oscar 2024 11:18am Anterior Cervical Fusion C3-4 and C4-5 J oscar 2024 2:11pm Anterior Cervical Fusion C3-4 and C4-5 J oscar 2024 10:03am Reason for Visit Admit Date Cervical myelopathy [...] 2024 1:16pm Spondylolisthesis, lumbar region June 1:16pm Cervical myelopathy September 01, 2024 10:23 am History of laminectomy September 01, 2024 10 :23am Lumbar scoliosis September 01, 2024 10:23 am Spinal stenosis of lumbar region with ne urogenic claudication September 01, 2024 10:23am Spondylolisthesis, lumbar region August 10:23am Status post cervical spinal fusion September 14, 2024 11:18am Additional Source Comments INFORMATION SOURCE (unrecogn ized section and content) DATE CREATED AUTHOR 06/23/2021 [facility] DATE CREATED AUTHOR AUTHOR'S ORGANIZ ATION 10/23/2023 [facility] DATE CREATED AUTHOR AUTHOR'S ORGANIZ ATION 12/14/2023 [facility] DATE CREATED AUTHOR AUTHOR'S ORGANIZ ATION 09/16/2024 [facility] Care Teams (unrecognized sec tion and content) Team Status: Active Member Role Status Dates Dr. Moose Dempsey MD Primary Care Provider Active Team Status: Inactive Member Role Status Dates Dr. Moose Dempsey MD Primary Care Provider Active Start: July 08, 2024 End: July 08, 2024 Dr. Moose Dempsey MD Referring Provider Active S tart: July 08, 2024 End: July 08, 2024 Dr. Guerrero Valdivia MD Attending Provider Active Start: July 08, 2024 End: July 08, 2024 Team Status: Inactive Member Role Status Dates Dr. Moose Dempsey MD Primary Care Provider Active Start: July 22, 2024 End: July 22, 2024 Dr. Guerrero Valdivia MD Attending Provider Active Start: July 22, 2024 End: July 22, 2024 Dr. Guerrero Valdivia MD Referring Provider Active Start: July 22, 2024 End: July 22, 2024 Team Status: Active Member Role Status Dates Dr. Moose Dempsey MD Primary Care Provider Active Start: July 28, 2024 Dr. Moose Dempsey MD Referring Provider Active S tart: July 28, 2024 Dr. Guerrero Valdivia MD Attending Provider Active Start: July 28, 2024 Team Status: Inactive Member Role Status Dates Dr. Moose Dempsey MD Primary Care Provider Active Start: July 28, 2024 End: July 28, 2024 Dr. Chente Whitmore MD Attending Provider Active S tart: July 28, 2024 End: July 28, 2024 Team Status: Inactive Member Role Status Dates Dr. Moose Dempsey MD Primary Care Provider Active Start: July 28, 2024 End: July 28, 2024 Dr. Moose Dempsey MD Referring Provider Active S tart: July 28, 2024 End: July 28, 2024 Dr. Guerrero Valdivia MD Attending Provider Active Start: July 28, 2024 End: July 28, 2024 Team Status: Active Member Role/Relationship Status Dates Dr. Moose Dempsey MD Primary Care Provider Active Team Status: Inactive Member Role/Relationship Status Dates Dr. Moose Dempsey MD Primary Care Provider Active Start: July 08, 2024 End: July 08, 2024 Dr. Moose Dempsey MD Referring Provider Active S tart: July 08, 2024 End: July 08, 2024 Dr. Guerrero Valdivia MD Attending Provider Active Start: July 08, 2024 End: July 08, 2024 Team Status: Inactive Member Role/Relationship Status Dates Dr. Moose Dempsey MD Primary Care Provider Active Start: July 22, 2024 End: July 22, 2024 Dr. Guerrero Valdivia MD Attending Provider Active Start: July 22, 2024 End: July 22, 2024 Dr. Guerrero Valdivia MD Referring Provider Active Start: July 22, 2024 End: July 22, 2024 Team Status: Inactive Member Role/Relationship Status Dates Dr. Moose Dempsey MD Primary Care Provider Active Start: July 28, 2024 End: July 28, 2024 Dr. Moose Dempsey MD Referring Provider Active S tart: July 28, 2024 End: July 28, 2024 Dr. Guerrero Valdivia MD Attending Provider Active Start: July 28, 2024 End: July 28, 2024 Team Status: Inactive Member Role/Relationship Status Dates Dr. Moose Dempsey MD Primary Care Provider Active Start: July 28, 2024 End: July 28, 2024 Dr. Chente Whitmore MD Attending Provider Active S tart: July 28, 2024 End: July 28, 2024 Team Status: Inactive Member Role/Relationship Status Dates Dr. Moose Dempsey MD Primary Care Provider Active Start: September 01, 2024 End: September 01, 2024 Dr. Moose Dempsey MD Referring Provider Active S tart: September 01, 2024 End: September 01, 2024 Dr. Guerrero Valdivia MD Attending Provider Active Start: September 01, 2024 End: September 01, 2024 Team Status: Active Member Role/Relationship Status Dates Dr. Moose Dempsey MD Primary Care Provider Active Start: September 14, 2024 Dr. Guerrero Valdivia MD Attending Provider Active Start: September 14, 2024 Dr. Guerrero Valdivia MD Referring Provider Active Start: September 14, 2024 Dr. Guerrero Valdivia MD Other Provider Active Star t: September 14, 2024 Team Status: Inactive Member Role/Relationship Status Dates Dr. Moose Dempsey MD Primary Care Provider Active Start: September 14, 2024 End: September 15, 2024 Dr. Guerrero Valdivia MD Admit Provider Active Star t: September 14, 2024 End: September 15, 2024 Dr. Guerrero Valdivia MD Attending Provider Active Start: September 14, 2024 End: September 15, 2024 Dr. Guerrero Valdivia MD Referring Provider Active Start: September 14, 2024 End: September 15, 2024 Dr. Piotr Flowers DO Other Provider Active Star t: September 14, 2024 End: September 15, 2024 Team Status: Active Member Role/Relationship Status Dates Dr. Moose Dempsey MD Primary Care Provider Active Start: September 14, 2024 Dr. Guerrero Valdivia MD Admit Provider Active Star t: September 14, 2024 Dr. Guerrero Valdivia MD Referring Provider Active Start: September 14, 2024 Dr. Guerrero Valdivia MD Other Provider Active Star t: September 14, 2024 Dr. Carlos Curry DO Attending Provider Active Start: September 14, 2024 Dr. Carlos Curry DO Other Provider Active Start: September 14, 2024 Team Status: Active Member Role/Relationship Status Dates Dr. Moose Dempsey MD Primary Care Provider Active Start: September 15, 2024 Dr. Guerrero Valdivia MD Admit Provider Active Star t: September 15, 2024 Dr. Guerrero Valdivia MD Referring Provider Active Start: September 15, 2024 Dr. Guerrero Valdivia MD Other Provider Active Star t: September 15, 2024 Dr. Piotr Flowers DO Attending Provider Active Start: September 15, 2024 Dr. Piotr Flowers DO Other Provider Active Star t: September 15, 2024 Goals (unrecognized section and content) Goals [...] BE BASED ON THE PRIMARY CLINICAL RECORDS. [facility]. provides no warranty or guarantee of the accuracy or completeness of information in this document.
[2024-09-18 09:51] LABS: Anion Gap 12 (5-15); BUN 23 mg/dL (4-19); BUN/Creat Ratio 23.6 RATIO (10-20); Calcium,Total 10.0 mg/dL (7.6-11.0); Carbon Dioxide 27.6 mmol/L (21.0-32.0); Chloride 99 mmol/L (98-108); Estimated Creatinine Clearance 48.56 ml/min (50-250); Glucose 117 mg/dL (70-99); Potassium 3.7 mmol/L (3.3-5.1)
--- NOTE | 2024-09-18 10:05 | CM.ED ---
Date of referral: 09/18/24 Reason for referral: No Advanced Care Directives (ACD's) on file Referred by: Social Work Identification Patient provided consent to social work visit. Rental Counter Clerk requested patient to bring in a copy of her ACD's which patient agreed she would do. Key Che, SOCIAL WORKER, CUSTOMER EQUIPMENT ENGINEER
[2024-09-18 10:10] VITALS: BP 142/76; PULSE 69; RESP 16; O2SAT 96
--- NOTE | 2024-09-18 11:20 | EX.ED.DYSGE1 ---
HPI History of Present Illness Chief Complaint: Hypertension Detail of Chief Complaint: Concerned because of elevated blood pressure and headache yesterday Informant: patient Onset/Context/Timing Onset: Today and Yesterday Context: - (Unknown) Timing: Waxes and wanes Quality: Patient with history of hypertension who presents because of elevated blood Current Severity: Mild Maximum Severity: Mild Worsened by: Possibly pain Relieved by: Pain medicine Associated Symptoms Associated Symptoms: Vertex headache yesterday Narrative Narrative: Patient is a 74-year-old woman. She has history hypertension. She is presently on hydrochlorothiazide and metoprolol. Her medication dose has not been changed for some time. She took her blood pressure because she had a vertex headache yesterday. This occurred at rest. She is status post fusion C3-4-5 this past week by Dr. Garcia. She has had elevated blood pressures today as well. She contacted Dr. Garcia who reported concern and reason she presents. She denied double vision, blurred vision loss of vision. She denies trouble with speech or swallowing. She complains of numbness in her feet. She had this numbness prior to the surgery. She has no other complaints. She reports compliance with her medicine and compliance with her diet. Prior similar symptoms: Yes Recent Illness/Hospitalization: Yes [facility] Medical History Wears glasses Arthritis High cholesterol Gastric reflux Non-smoker History of pain when walking History of stress test Cataract Hyperlipidemia HTN (hypertension) Home Medications ?Medication ?Instructions ?Recorded ?Last Taken ?Type atenolol 25 mg tablet 25 mg PO DAILY 11/21/19 09/14/24 History hydrochlorothiazide 25 mg tablet 25 mg PO DAILY 11/21/19 09/13/24 History lovastatin 20 mg tablet 20 mg PO QHS 11/21/19 09/13/24 History multivitamin (Multiple Vitamins 1 tab PO DAILY 11/21/19 09/13/24 History tablet) omega 1-ljj-ntu-fish oil 1,000 mg 1 cap PO DAILY 11/21/19 08/31/24 History (120 mg-180 mg) capsule (Fish Oil) turmeric root extract 500 mg 500 mg PO DAILY 11/21/19 09/13/24 History capsule omeprazole 20 mg capsule,delayed 20 mg PO .QOD 07/08/24 09/14/24 History release hydrocodone-acetaminophen 5-325mg 1 tab PO Q6H PRN pain 7 days #28 09/15/24 Unknown Rx 5mg-325mg tabs meloxicam 15 mg tablet 15 mg PO DAILY #30 tabs 09/15/24 Unknown Rx methocarbamol 500 mg tablet 500 - 750 mg (1 - 1.5 x 500 mg) PO 09/15/24 Unknown Rx TID PRN pain/spasms #30 tabs sennosides 8.6 mg-docusate sodium 2 tab PO BID PRN constipation #30 09/15/24 Unknown Rx 50 mg tablet (Stimulant Laxative tabs Plus) Allergy/AdvReac Type Severity Reaction Status Date / Time Penicillins Allergy Hives Verified 09/18/24 09:08 Family History Mother Cancer Father Heart problem Surgical History H/O removal of cyst History of lumbar laminectomy H/O: hysterectomy Social History household members: spouse housing: house Smoking Status: Never smoker alcohol intake: never what type of physical activity do you participate in: none do you feel safe at home: Yes ROS ROS ED Constitutional Constitutional ED: Denies chills, fever(s), subjective, sweats or weight loss Eyes Eyes: Denies blurry vision, change in vision or diplopia ENT ENT ED: Reports other Details: Further detailed HPI narrative ; Denies ear pain, rhinorrhea or sore throat Cardiovascular Cardiovascular: Denies chest pain, orthopnea, palpitations or paroxysmal nocturnal dyspnea Respiratory/Chest Respiratory/Chest: Denies cough, dyspnea, dyspnea on exertion, orthopnea or paroxysmal nocturnal dyspnea Gastrointestinal Gastrointestinal: Denies abdominal pain, nausea or vomiting Musculoskeletal Musculoskeletal: Reports neck pain Integumentary Denies rash Neurologic Neurologic: Reports headache(s) and paresthesias RLE and LLE; Denies weakness Psychiatric Psychiatric: Denies anxiety or depression Hematologic/Lymphatic Hematologic/Lymphatic: Reports systems reviewed and no addt'l complaints, except as documented EXAM Physical Exam Const Vital Signs: 09/18/24 09:07 09/18/24 09:07 09/18/24 10:10 Temperature 97.3 F L Temperature Source Temporal Pulse Rate 76 76 69 Respiratory Rate 14 14 16 Blood Pressure 205/86 H 178/96 H 142/76 H Blood Pressure Mean 125 123 98 Pulse Ox 98 98 96 Oxygen Delivery Method Room Air Room Air Room Air Positive well nourished and well developed General Appearance ED: well developed and NAD HEENT Reports moist mucous membranes HEENT Narrative: Head is atraumatic no cephalic. Ears normal. Nares patent. Posterior pharynx normal. Uvula midline. No deviation or protrusion. Patient is in a collar since she had recent surgery. Bandage is still over the incision site. Eyes PERRL and EOMs intact bilaterally General Eye ED: Negative for pale conjunctiva or scleral icterus Neck no lymphadenopathy and no JVD Resp normal respiratory effort and clear to auscultation bilaterally Cardio regular rate, regular rhythm, S1 normal heart sound, S2 normal heart sound and no murmurs Extremity normal to inspection General Extremety ED: Negative for edema or tenderness General Extremity: Negative for edema Neuro oriented x3 and CN's II-XII intact bilaterally Sensorium / Orientation: alert Psych mental status grossly normal Skin no rashes or lesions noted, No no wounds and skin turgor normal General Skin Exam: elasticity normal MDM MDM Lab Data Attestation: I reviewed the patient's lab results. Lab results narrative: BMP is unremarkable. With no evidence of endorgan dysfunction patient was observed. Her most recent blood pressure was 142/76. This is slightly higher than her baseline. She also has neck pain since recent surgery. Recommended not checking her blood pressure for the next week or 2. Suspect this is all related to the surgery and since she is asymptomatic other than she had a headache yesterday which 1 would not expect with a systolic pressure 160 suspect this is most likely a tension headache due to the fact she had recent surgery. Labs: Laboratory Results - last 24 hr 09/18/24 09:18 Sodium 138 Potassium 3.7 Chloride 99 Carbon Dioxide 27.6 Anion Gap 12 BUN 23 H Creatinine 0.95 Estim Creat Clear Calc 48.56 L Est GFR (MDRD) Non-Af 62 BUN/Creatinine Ratio 23.6 H Glucose 117 H Calcium 10.0 Discharge Plan Triage Chief Complaint: Hypertension ED Provider: Peter Ornelas Dx/Rx/DC Orders Clinical Impression: Asymptomatic hypertension, Status post cervical spinal fusion, Acute tension-type headache Instructions: ED High Blood Pressure Hypertension Prescriptions: No Action atenolol 25 mg tablet 25 mg PO DAILY lovastatin 20 mg tablet 20 mg PO QHS hydrochlorothiazide 25 mg tablet 25 mg PO DAILY turmeric root extract 500 mg capsule 500 mg PO DAILY omega 0-chl-iut-fish oil [Fish Oil] 1,000 mg (120 mg-180 mg) capsule 1 cap PO DAILY multivitamin [Multiple Vitamins] Tablet 1 tab PO DAILY omeprazole 20 mg capsule,delayed release(DR/EC) 20 mg PO .QOD hydrocodone-acetaminophen 5-325 mg Tablet 1 tab PO Q6H PRN (Reason: pain) 7 Days Qty: 28 0RF meloxicam 15 mg Tablet 15 mg PO DAILY Qty: 30 0RF Rx Instructions: take once a day methocarbamol 500 mg Tablet 500 - 750 mg PO TID PRN (Reason: pain/spasms) Qty: 30 0RF sennosides-docusate sodium [Stimulant Laxative Plus] 8.6-50 mg Tablet 2 tab PO BID PRN (Reason: constipation) Qty: 30 0RF Primary Care Provider: Moose Barreto Referrals: Moose Barreto MD [Primary Care Provider] - 1-2 Weeks Print Language: [place] Disposition Disposition: Home, Self Care
[2024-09-18 11:40] VITALS: BP 154/96; PULSE 97; RESP 16; TEMP 36.6; O2SAT 97
== END 2024-09-18 11:41 | disposition home or self-care (01) ==
PROVIDERS: Emergency Provider Emergency Medicine; PCP Family Medicine; Visit Provider Emergency Medicine
DX: I10 Essential (primary) hypertension (principal); Z98.1 Arthrodesis status; G44.209 Tension-type headache, unspecified, not intractable; E78.00 Pure hypercholesterolemia, unspecified; Z90.710 Acquired absence of both cervix and uterus; Z79.899 Other long term (current) drug therapy
CPT/HCPCS: 80048; 99284; A4216

== ENCOUNTER → 2024-12-23 | Outpatient (CLI) | payer MEDICARE, BC, SELFPAY ==
--- NOTE | 2024-12-23 07:14 | MRI_ITS ---
PROCEDURE: SPINE LUMBAR (ROUTINE) 12/23/2024 REASON FOR EXAM: LUMBAR RADICULOPATHY TECHNIQUE: Procedure Code: MRISPL Modality: MR Procedure: SPINE LUMBAR (ROUTINE) COMPARISON: Lumbar spine x-ray 09/16/2023 FINDINGS: Vertebrae: Preserved in height and signal. Status post L4 laminectomies. Alignment: Anterolisthesis L4 on L5 by 2 mm. Conus Medullaris: Unremarkable. L1-2: Disc bulge. Facet joint arthropathy. Ligamentum flavum hypertrophy. Moderate bilateral foramina stenosis. Mild canal stenosis. L2-3: Uncovered disc bulge. Facet joint arthropathy. Ligamentum flavum hypertrophy. Severe bilateral foramina stenosis. Severe canal stenosis. L3-4: Disc bulge. Facet joint arthropathy. Ligamentum flavum hypertrophy. Severe bilateral foramina stenosis and severe canal stenosis. Compression upon the cauda equina nerves. L4-5: Disc desiccation. Uncovertebral disc bulge. Facet joint arthropathy. Status post laminectomies. Severe right and moderate left foramina stenosis. No canal stenosis. L5-S1: Disc bulge. Facet joint arthropathy. Mild bilateral foramina stenosis with abutment upon the exiting nerves. No canal stenosis. Sacrum: Unremarkable. 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 Reading Location: [facility]
--- OUTSIDE RECORDS SUMMARY | 2024-12-23 07:28 | XMS RPT_ITS | CCD ---
Author Organization [facility] ion Partnership [facility] Care Team Providers Care Maple Sugar Maker Name Role Phone Moose Dempsey MD Unavailable Moose Dempsey MD Unavailable [facility] Unavailable [phone] Jeffery SAAVEDRA, Dr. Ramsey Unavailable Dr. Mamadou Hu DO Unavailable Cole GREEN, Merlyn Unavailable [phone] [facility] Unavailable [facility] Unavailable Dr. Melody West MD Unavailable Dr. Fidencio Bird MD Unavailable [facility] Unavailable Sourav SAAVEDRA, Michelle Downing Unavailable Bill CAPACITY PLANNING ENGINEER, Glenna Unavailable Jeffery JOYCE, Tami Unavailable Yashira JOYCE, Anna Marie Haro Unavailable Unavail able Richert CAPACITY PLANNING ENGINEER, Charisma L Unavailable Unavailab le Vess CAPACITY PLANNING ENGINEER, Neilee L Unavailable Unavailable Lyndsey CAPACITY PLANNING ENGINEER, Michelle M Unavailable Unavailab le Tamar CAPACITY PLANNING ENGINEER, Libra Unavailable Unavailab le Yashira, Gayle C Unavailable Unavailable Wengerd CAPACITY PLANNING ENGINEER, Key Unavailable Unavailasim Vasquez RN, Chrissie Herndon Unavailable Unavaila ble Mutersbaugh CAPACITY PLANNING ENGINEER, Ligia K Unavailable Unavai lable Hugo CAPACITY PLANNING ENGINEER, Valerie Unavailable Unavailable Zaugg CAPACITY PLANNING ENGINEER, Ina Unavailable Unavailable Marthey CAPACITY PLANNING ENGINEER, Tatyana Unavailable Unavailable Gabriela SOLUTIONS EXECUTIVE SECURITY, Esme Unavailable Unavailable Rodolfo BRAR, Valerie Unavailable Unavailable Tomy CAPACITY PLANNING ENGINEER, Manny Unavailable Unavailable Unavailable Unavailable Pelon SAAVEDRA, Dr. Nicolas Unavailable Skip SAAVEDRA, Dr. Stevenson Unavailable Delmer BRAR, Lydia Unavailable Unavailable Ke SAAVEDRA, Dr. Virk Primary Care Provider Ke SAAVEDRA, Dr. Virk Referring Provider Skip SAAVEDRA, Dr. Stevenson Attending Provider Skip SAAVEDRA, Dr. Stevenson Referring Provider Myranda SAAVEDRA, Dr. Eldridge Attending Provider Skip SAAVEDRA, Dr. Stevenson Other Provider Skip SAAVEDRA, Dr. Stevenson Admit Provider Dr. Piotr Flowers DO Other Provider Dr. Carlos Curry DO Attending Provider Dr. Carlos Curry DO Other Provider Lionel ALEXANDER, Dr. Saldaña Attending Provider Leeanna Doan Attending Provider Johnson SAAVEDRA, Dr. Green Emergency Provider Johnson SAAVEDRA, Dr. Green Attending Provider Leeanna Doan Attending Provider MOOSE DEMPSEY Consulting Unavailable VALDIVIA, GUERRERO A Admitting Unavailable VALDIVIA, GUERRERO A Primary Care Unavailable SKIP, GUERRERO A Attending Unavailable PROVIDER, UNKNOWN Consulting Unavailable PROVIDER, UNKNOWN Consulting Unavailable PROVIDER, UNKNOWN Consulting Unavailable KE, MOOSE Admitting Unavailable KE, MOOSE Primary Care Unavailable KE MOOSE Consulting Unavailable KE MOOSE Attending Unavailable PROVIDER, UNKNOWN Consulting Unavailable PROVIDER, UNKNOWN Consulting Unavailable PROVIDER, UNKNOWN Consulting Unavailable [facility] Admitting Unavailable [facility] Primary Care Unavailable [facility] Attending Unavailable KE MOOSE Consulting Unavailable PROVIDER, UNKNOWN Consulting Unavailable PROVIDER, UNKNOWN Consulting Unavailable PROVIDER, UNKNOWN Consulting Unavailable Valdivia, Guerrero Referring Unavailable Ke, Moose Primary Care Unavailable Valdivia, Guerrero Admitting Unavailable Piotr Flowers Attending Unavailable Piotr Flowers Consulting Unavailable Valdivia, Guerrero Consulting Unavailable Valdivia, Guerrero Referring Unavailable Ke, Moose Primary Care Unavailable Chente Whitmore Attending Unavailable Ke, Moose Primary Care Unavailable Brown, Moose Referring Unavailable Valdivia, Guerrero Attending Unavailable Brown, Moose Primary Care Unavailable Myranda, Chente Attending Unavailable Brown, Moose Primary Care Unavailable Myranda, [place] Attending Unavailable Brown, Moose Primary Care Unavailable Brown, Moose Referring Unavailable Valdivia, Guerrero Attending Unavailable Brown, Moose Primary Care Unavailable Brown, Moose Referring Unavailable Valdivia, Guerrero Attending Unavailable Brown, Moose Referring Unavailable Valdivia, Guerrero Attending Unavailable Brown, Moose Primary Care Unavailable Brown, Moose Primary Care Unavailable Brown, Moose Referring Unavailable Leeanna Dennis Attending Unavailable Brown, Moose Primary Care Unavailable Ornelas, Peter Attending Unavailable Valdivia, Guerrero Referring Unavailable Valdivia, Guerrero Attending Unavailable Brown, Moose Primary Care Unavailable Valdivia, Guerrero Referring Unavailable Valdivia, Guerrero Attending Unavailable Brown, Moose Primary Care Unavailable Valdivia, Guerrero Attending Unavailable Brown, Moose Primary Care Unavailable Valdivia, Guerrero Admitting Unavailable Valdivia, Guerrero Admitting Unavailable Valdivia, Guerrero Referring Unavailable Brown, Moose Primary Care Unavailable Valdivia, Guerrero Attending Unavailable Piotr Flowers Consulting Unavailable Brown, Moose Primary Care Unavailable Myranda, [place] Attending Unavailable Brown, Moose Primary Care Unavailable Myranda, Chente Attending Unavailable Brown, Moose Referring Unavailable Valdivia, Guerrero Attending Unavailable Brown, Moose Primary Care Unavailable Carlos Curry Attending Unavailable Carlos Curry Consulting Unavailable Valdivia, Guerrero Consulting Unavailable Valdivia, Guerrero Referring Unavailable Brown, Moose Primary Care Unavailable Valdivia, Guerrero Attending Unavailable Leeanna Dennis Attending Unavailable Allergies Allergy Classification Reported Allergen(s) Allergy Type Date of Onset Reaction(s) Facility (20 sources) Penicillin V Drug Allergy Rash [facility], [facility], [facility]. (10 sources) Penicillins Allergy to substance 07-08-2024 [facility] (1 source) Penicillin Drug Allergy [facility] Repository (1 source) Penicillins Drug allergy (disorder) 12-21-2024 [facility] Repository Medications Current Medications Medication Drug Class(es) Dates Sig (Normalized) Sig (Original) atenolol 25 mg oral tablet (20 sources) beta-Adrenerg ic Jd Start: 0 atenoloL 25 mg tablet ; 1 Tablet daily for 90 days Quantity: 90 {Tablet} Refills: 1 Ordered: 18-Jul-2024 MD Moose Dempsey Start: 18-Jul-2024 Comments: Mail order. Comment on above: Mail order. Fish Oils (20 sources) Fish Oil Glucosamine Complex (20 sources) Glucosamine Comp ying [...] Start: 11-21-2019 take 1 tablet by leidy th once daily Hydrochlorothiazide 25 mg tablet Active 25 mg PO DAILY November 21, 2019 12:00am Comment on above: Mail order. lovastatin 20 mg oral tablet (20 sources) HMG-CoA Reductase Inhibitor Start: 0 lovastatin 20 mg tablet ; 1 Tablet daily for 0 days Quantity: 90 {Tablet} Refills: 3 Ordered: 26-Apr-2024 MD Moose Dempsey Start: 26-Apr-2024 Comments: Mail order. Comment on above: Mail order. Multivitamin (Multiple Vitamins) tablet (10 sources) Start: 0 Multivitamin (Multiple Vitamins) tablet Active 1 {tbl} PO DAILY November 21, 2019 12:00am omeprazole 20 mg delayed release oral capsule (20 sources) Proton Pump Inhibitor Start: 5 take 1 capsule by mouth every other [...] Dempsey Start: 01-Aug-2019 End: 31-Aug-2019 Status: Inactive Completed/Discontinued Medications Medication Drug Class(es) Dates Sig (Normalized) Sig (Original) acetaminophen 325 mg / HYDROcodone bitartrate 5 mg oral tablet (6 sources) Opioid Agonist Start: 09-15-2024 End: 10-27-2024 Hydrocodone-Acetam inophen 5-325 mg Tablet Discontinued 1 {tbl} PO EVERY 6 HOURS as needed for pain 28 7 0 September 15, 2024 October 27, 2024 9:01am Status post cervical spinal arthrodesis Arthrodesis status aspirin 81 mg delayed release oral tablet [...] oral capsule (20 sources) Cephalosporin Antibacterial Start: 6 End: 6 take 1 capsule by mouth three times daily Cephalexin 500 MG Oral Capsule ; 1 Capsule three times daily for 10 days Quantity: 30 {Capsule} Refills: 0 Ordered: 08-Jan-2016 MD Moose Dempsey Start: 22-Dec-2015 End: 01-Jan-2016 Status: Inactive docusate sodium 50 mg / sennosides, skilled nursing 8.6 mg oral tablet (6 sources) Start: 5 End: 5 Sennosides-Docusate Sodium (Stimulant Laxative Plus) 8.6-50 mg Tablet Discontinued 2 {tbl} PO TWICE A DAY as needed for constipation 30 September 15, 2024 10:51am October 27, 2024 9:02am gabapentin 300 mg oral capsule (20 sources) Anti-epileptic Agent Start: 2 End: 2 take 1 capsule by mouth three times daily as needed for pain Gabapentin 300 MG Oral Capsule ; 1 (one) Capsule tid prn nerve pain / numbness for 0 days Quantity: 90 {Capsule} Refills: 3 Ordered: 24-Sep-2021 MADAI Arias Start: 14-May-2021 End: 24-Sep-2021 Status: Inactive Weccp-Qfd-M-Monetta-M ang-Leslie 908-022-26-0.5 mg capsule (10 sources) Start: 0 End: 5 Wqrea-Tuk-Z-Monetta-Ma ng-Leslie [id number] mg capsule Discontinued 1 NMA PO DAILY November 21, 2019 12:00am September 18, 2024 9:20am Start: 11-21-2019 Jzigj-Pcq-F-Jose gvm-Bpky-Xkf [id number] mg capsule Active 1 NMA PO DAILY November 21, 2019 12:00am Glucosamine Chondroitin Complx (20 sources) Glucosamine Chondroitin Complx Status: Inactive meclizine hydrochloride 25 mg oral tablet (20 sources) Antiemetic take 1 mg by mouth three times daily as needed Meclizine HCl 25 MG Oral Tablet ; three times daily, as needed (25 MG) Status: Inactive Comments: Medication taken as needed. ER Comment on above: Medication taken as needed. ER meloxicam 15 mg oral tablet (6 sources) Nonsteroidal Anti-inflammatory Drug Start: End: take 1 tablet by mouth once daily Meloxicam 15 mg Tablet Discontinued 15 mg PO DAILY 30 0 September 15, 2024 12:00am October 27, 2024 9:01am take once a day methocarbamol 500 mg oral tablet (6 sources) Muscle Relaxant Start: End: take 500-750 mg by mouth three times daily as needed for pain Methocarbamol 500 mg Tablet Discontinued 500 - 750 mg PO THREE TIMES A DAY as needed for pain/spasms 30 0 September 15, 2024 10:50am October 27, 2024 9:01am omega-3 acid ethyl esters (skilled nursing) 1000 mg oral capsule (10 sources) Start: End: [place] 1-Brs-Hrd-Fish Oil (Fish Oil) 1,000 mg (120 mg-180 mg) capsule Discontinued 1 NMA PO DAILY November 21, 2019 12:00am October 27, 2024 9:02am ondansetron 4 mg oral tablet (20 sources) [...] Refills: 0 Ordered: 04-Jul-2014 MARIA DEL CARMEN Vasquezly Yanick Start: 28-Jun-2013 End: 04-Jul-2014 Status: Inactive Turmeric Root Extract (10 sources) Start: 020 End: 025 take 1 capsule by mouth once daily Turmeric Root Extract 500 mg capsule Discontinued 500 mg PO DAILY November 21, 2019 12:00am October 27, 2024 9:02am Start: 11-21-2019 take 1 capsule by mo uth once daily Turmeric Root Extract 500 mg capsule Active 500 mg PO DAILY November 21, 2019 12:00am Problems Active Problems Problem Classification Problem Date [...] sources) Benign hypertension; Translations: [Essential (primary) hypertension] Onset: 09-22-2024 02-02-2023 Chronic Headache; including migraine (5 sources) Tension-type headache; Translations: [Tension-type headache, unspecified, not intractable] 09-18-2024 Chronic Immunizations and screening for infectious disease (20 sources) Needs influenza immunization; Translations: [Encounter for immunization] 01-09-2015 Episodic Nonspecific chest pain (20 sources) Atypical chest pain; Translations: [Other chest pain] 12-17-2010 Episodic Osteoarthritis (20 sources) Osteoarthritis of multiple joints ; Translations: [Polyosteoarthritis, 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-2023 Chronic Other acquired deformities (20 sources) Scoliosis of lumbar spine; Translations: [Scoliosis, unspecified] 07-08-2024 Chronic Other acquired deformities (1 source) Other secondary scoliosis, lumbar region; Translations: [Other secondary scoliosis, lumbar region] Onset: 09-19-2024 Chronic Other acquired deformities (20 sources) Lumbar spondylolisthesis; Translations: [Spondylolisthesis, lumbar region] 07-08-2024 Episodic Other aftercare (20 sources) High risk drug monitoring status; Translations: [Other assistant terminal manager (current) drug therapy] 01-02-2015 Episodic Other congenital anomalies (10 sources) Osteosclerosis; 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 Chronic Other [...] limb 08-10-2023 Episodic Other connective tissue disease (15 sources) History of cervical spine fusion; Translations: [Arthrodesis status] 09-14-2024 Episodic Other connective tissue disease (2 sources) Arthrodesis status; Translations: [Arthrodesis status] Onset: 10-07-2024 Episodic Other ear and sense organ disorders [...] limbs] 04-28-2023 Chronic Other nervous system disorders (20 sources) Cervical myelopathy; Translations: [Disease of spinal cord, unspecified] 07-08-2024 Chronic Other nervous system disorders (1 source) Disease of spinal cord, unspecified; Translations: [Disease of spinal cord, unspecified] Onset: 09-19-2024 Chronic Other nutritional; endocrine; and metabolic disorders [...] sources) Insomnia; Translations: [Insomnia, 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-2023 Episodic Spondylosis; intervertebral disc disorders; other back problems (20 sources) Degeneration of lumbar intervertebral disc; Translations: [Other intervertebral disc degeneration, lumbar region] Onset: 10-07-2024 09-16-2012 Chronic Spondylosis; intervertebral disc disorders; other back problems (20 sources) Lumbar radiculopathy; Translations: [Radiculopathy, lumbar region] Onset: 10-04-2024 02-02-2023 Episodic Unclassified (20 sources) Number of [...] weight has increased (2 pounds). Note for "Multiple chronic conditions follow-up": reviewed by [facility] 04-01-2022 Unclassified (20 sources) MCR Well Adult [...] The patient has a Healthcare Power of Organ Pipe Maker Metal and a Living Will. Note for "MCR Well Adult": reviewed by [facility] 09-24-2021 Unclassified (20 sources) Follow Up for [...] rarely noted. Note for Multiple chronic conditions follow-up": Recently seen in ER for vertigo. reviewed by [facility] 03-20-2021 Unclassified (20 sources) Follow Up for [...] rarely noted. Note for Multiple chronic conditions follow-up": reviewed by [facility] 09-13-2019 Unclassified (20 sources) Follow up for [...] have headaches. Note for Multiple chronic conditions follow-up": reviewed by [facility] 08-27-2018 Unclassified (20 sources) Follow up for [...] (leg pain). Note for Multiple chronic conditions follow-up": Mostly the R leg and thigh. This [...] daily basis. Note for Multiple chronic conditions follow-up": Is not fasting. Complains of toe pain on left foot. reviewed by [facility] 08-25-2017 Unclassified (20 sources) [facility] Routine Follow up - The patient is [...] been noticed occasionally. Note for Routine chronic follow-up": Is not fasting today. reviewed by [facility] 07-15-2016 Unclassified (20 sources) Follow Up for [...] (normal range). Note for Multiple chronic conditions follow-up": Patient states that when she rides her [...] frequently (normally 115-120/70's at home). Note for "Multiple chronic conditions follow-up": -Would like flu vaccine today.Does not need [...] bloody stools, constipation or diarrhea. Note for "Abdominal pain": Has not tried any OTC meds to [...] Note for Follow Up for Multiple Chronic Conditions": She does note a few lesions on [...] Often higher in AM (130's/80's).). Note for "Follow up for multiple chronic conditions": Pt states that she has been having [...] shaking or interference with activity. 12-27-2009 Unclassified (9 sources) Abdominal pain - The onset of [...] bloody stools, constipation or diarrhea. Note for "Abdominal pain": Has not tried any OTC meds to treat. 12-23-2011 Unclassified (9 sources) [ADDITIONAL REASON] Follow up for multiple chronic conditions - The patient is here for follow-up of hypertension and hyperlipidemia. The patient always takes the prescribed medications. No side effects noted. The patient has an active lifestyle but no regular exercise program. The patient's out of office blood pressure checks occur frequently (normally 115-120/70's at home). Note for "Multiple chronic conditions follow-up": -Would like flu vaccine today.Does not need [...] rarely noted. Note for Multiple chronic conditions follow-up": reviewed by [facility] 04-28-2023 Unclassified (20 sources) [...] have headaches. 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 Sx are relieved by PPI ( prilosec ) but always return if she stops. 04-26-2024 Unclassified (3 sources) Status post cervical spinal arthrodesis Unclassified (6 sources) Z98.1 - Arthrodesis status Past or Other Problems Problem Classification Problem Date Documented Date Episodic/Chronic Other acquired deformities (1 source) Spondylolisthesis, lumbar region; Translations: [Spondylolisthesis, lumbar region] Onset: 09-19-2024 Episodic Residual codes; unclassified (20 sources) Other specified postprocedural states; Translations: [History of laminectomy] Onset: 09-19-2024 07-08-2024 Episodic Unclassified (20 sources) Hand pain - The onset of the hand pain has been acute and has been occurring in a persistent pattern for 1 month. The course has been gradually worsening. The hand pain is characterized as a moderate sharp stabbing. The hand pain is described as being located in the thumb and base of thumb. Note for "Hand pain": Pain will radiate up arm. reviewed by [facility] 02-02-2023 Unclassified (20 sources) MCR Well Adult [...] The patient has a Healthcare Power of Organ Pipe Maker Metal and a Living Will. Note for "MCR Well Adult": reviewed by [facility] 10-21-2022 Unclassified (20 sources) MCR Well Adult - [...] The patient has a Healthcare Power of Organ Pipe Maker Metal and a Living Will. Note for "MCR Well Adult": reviewed by [facility] 09-18-2020 Unclassified (20 sources) Chest pain - [...] pain, fever, nausea or vomiting. Note for "Chest pain": Feels that solid foods such as apples and cheese will get stuck in her throat/esophagus. She can feel food going down throat.Did have issues with acid reflux in the past. Been taking Tums that will relieve the burning sensation. 08-01-2019 Unclassified (20 sources) MCR Well Adult - [...] The patient has a Healthcare Power of Organ Pipe Maker Metal and a Living Will. Note for "MCR Well Adult": reviewed by [facility] 03-29-2019 Unclassified (20 sources) [...] nothing (tylenol did early on). Note for "Leg pain": Since [place] she is noticing this discomfort is worsening. [...] lump is described as mild. Note for "Breast lump": Last mammogram 09/2017 was normal. No pain with it. 03-16-2018 Unclassified (20 sources) Muscle pain - The onset of the muscle pain has been acute and has been occurring in an intermittent pattern for 6 weeks. The course has been increasing. The muscle pain is described as a moderate dull aching (muscle tightness). Note for "Muscle pain": started w left arm, that has resolved, now worse in R leg. 03-06-2018 Unclassified (20 sources) MCR Well Adult - [...] The patient has a Healthcare Power of Organ Pipe Maker Metal and a Living Will. Note for "MCR Well Adult": reviewed by [facility] 02-18-2017 Unclassified (20 sources) Cold Symptoms - [...] an individual with similar symptoms. Note for "Upper respiratory infection": reviewed by [facility] 12-22-2015 Unclassified (20 sources) MCR well adult - [...] The patient has a Healthcare Power of Organ Pipe Maker Metal and a Living Will. Note for "MCR well adult": reviewed by [facility] 07-11-2015 Unclassified (20 sources) Finger [...] hang down or direct pressure. Note for "Finger pain": The pain of the left thumb has been occurring intermittently for the past 2 weeks. Feels like it is being pulled out of joint and if she pulls it, it clicks back to place. Is painful when stuck.About 2 weeks ago, she was helping put a front head loader on the a tractor and injured the [...] patient does not have Healthcare Power of Organ Pipe Maker Metal or Living Will (unable to remember what has been put in place for advance planning). 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 Note for "Multiple chronic conditions follow-up": reports that while staining her deck this [...] laundry, preparing/taking medications and finances. Note for "MCR well adult": reviewed by [facility] 06-28-2013 Unclassified (20 sources) 2 things - Has questions about dry, rough areas on left faith and another spot on back. Also reports "low" blood pressure readings since dose change in [...] her leg is bothering her.). Note for "Well Adult, female": reviewed by [facility] 06-30-2012 Unclassified (20 sources) [...] that high. She continues to just not "feel right". She says she has had some pain in her left shoulder/ and down her arm. Had lipoma removed in that area in August and was doing ok but pain has started to hurt in the last week or so. No chest pressure or heaviness, no exertional pain; symptoms worse when she is resting/laying down. She attributed that to taking her bp "too much". She states she has had no dizziness, [...] in left hand between 2nd and 3rd MC that occurs at rest without provocation, does not impair function.). 06-25-2010 Unclassified (19 sources) Transition into care - The patient is transitioning into care from another physician (marimar) and a summary of care was reviewed . 01-03-2014 Unclassified (19 sources) [ADDITIONAL REASON] Follow up for multiple chronic conditions - The patient is here for follow-up of hypertension, hyperlipidemia and GERD. The patient always takes the prescribed medications. No side effects noted. The patient engages in regular exercise program 1-3 times per week. The patient's out of office blood pressure checks occur occasionally. Note for "Multiple chronic conditions follow-up": reports that while staining her deck this [...] numbness and tingling in fingers. Note for "Leg pain": both legs, but left is worse, she [...] perform monthly breast self exam. 10-28-2023 Unclassified (20 sources) Pre-operative clearance - Surgical procedure(s) planned: other (ACDF C3-5). Date of procedure: (09/14/2024) Surgeon: (Dr. Valdivia with [facility]) and Location of procedure: ([facility]) There have been no problems with general anesthesia or blood/blood products. Prosthetics include eye glasses. Note for Pre-operative clearance": Dr Valdivia is doing cervical spine surgery. 08-30-2024 Results Test Name Value Interpretation Reference Range Facility 3D MAMM UNILAT LT DIAGNOSTIC on 12-21-2024 3D MAMM UNILAT LT DIAGNOSTIC [address] ? [place] [address] ? Patient: DINORA SPAULDING Phone#: : [phone] Age: 74 Gender: F Pt. Type: Out Account: [id number] Location: [id number] Ordering: MOOSE DEMPSEY Exam Date: 12/21/2024/9:27 Family Phys: Charge Code: [id number] Physician: [place] Order #: [id number] Dose#: PROCEDURE: LEFT DIAGNOSTIC BREAST TOMOSYNTHESIS MAMMOGRAM WITH CAD COMPARISON: [facility], 3D UNILAT LT DIAGNOSTIC, 04/09/2022, 9:53. [facility], 3D BILAT SCREEN, 07/21/2023, 10:49. [facility], 3D BILAT SCREEN, 12/16/2024, 7:51. INDICATIONS: Abnormal mammogram. BREAST COMPOSITION: There are scattered areas of fibroglandular density FINDINGS: DIAGNOSTIC CATEGORY 3--PROBABLY BENIGN: FINDING(S) HAS A HIGH PROBABILITY OF A BENIGN; LEFT BREAST: Fine numerous CALCIFICATIONS, characterized by amorphous mildly suspicious morphology, anterior depth, 8 o'clock position, and too numerous to count. RECOMMENDATIONS: SHORT TERM FOLLOW-UP DIAGNOSTIC MAMMOGRAM LEFT BREAST IN 6 MONTHS. PLEASE NOTE: CLICK HERE IF HIGH RISK A NORMAL MAMMOGRAM DOES NOT EXCLUDE THE POSSIBILITY OF BREAST CANCER. A CLINICALLY SUSPICIOUS PALPABLE LUMP SHOULD BE BIOPSIED. THIS FACILITY UTILIZES A REMINDER SYSTEM TO ENSURE THAT ALL PATIENTS RECEIVE REMINDER LETTERS FOR APPOINTMENTS. THIS INCLUDES REMINDERS FOR ROUTINE MAMMOGRAMS, DIAGNOSITC MAMMOGRAMS, OR OTHER BREAST IMAGING INTERVENTIONS WHEN APPROPRIATE. THIS PATIENT WILL BE PLACED IN THE APPROPRIATE REMINDER SYSTEM. Dictated by: Leatha De La Torre MD on 12/21/2024 at 11:39 Approved by: Leatha De La Torre MD on 12/21/2024 at 11:42 Normal [facility] 3D MAMM BILAT SCREENon 12-16 3D MAMM BILAT SCREEN [address] ? [place] [address] ? Patient: DINORA SPAULDING Phone#: : 1950 Age: 74 Gender: F Pt. Type: Out Account: [id number] Location: [facility] Ordering: MOOSE DEMPSEY Exam Date: 12/16/2024/7:51 Family Phys: Charge Code: [id number] Physician: [place] Order #: [id number] Dose#: PROCEDURE: BILATERAL SCREENING BREAST TOMOSYNTHESIS MAMMOGRAM WITH CAD COMPARISON: [facility], 3D BILAT SCREEN, 07/21/2023, 10:49. INDICATIONS: Screening. BREAST COMPOSITION: There are scattered areas of fibroglandular density FINDINGS: DIAGNOSTIC CATEGORY 0--INCOMPLETE: NEED ADDITIONAL IMAGING EVALUATION. LEFT BREAST: FOCAL CALCIFICATIONS, characterized by seen only on the craniocaudal view in the medial position, and >10 in number. LEFT BREAST: ASYMMETRY visible on only the oblique view, located in the central breast, at the posterior depth, with size of approximately 14x8 mm. RIGHT BREAST: No significant suspicious finding. No significant change has occurred. RECOMMENDATIONS: ADDITIONAL MAMMOGRAPHIC VIEWS REQUIRED (LCC, LMCC and LSMLO): LEFT BREAST -- We will call the patient back for additional views and issue an additional report. PLEASE NOTE: CLICK HERE IF HIGH RISK A NORMAL MAMMOGRAM DOES NOT EXCLUDE THE POSSIBILITY OF BREAST CANCER. A CLINICALLY SUSPICIOUS PALPABLE LUMP SHOULD BE BIOPSIED. THIS FACILITY UTILIZES A REMINDER SYSTEM TO ENSURE THAT ALL PATIENTS RECEIVE REMINDER LETTERS FOR APPOINTMENTS. THIS INCLUDES REMINDERS FOR ROUTINE MAMMOGRAMS, DIAGNOSITC MAMMOGRAMS, OR OTHER BREAST IMAGING INTERVENTIONS WHEN APPROPRIATE. THIS PATIENT WILL BE PLACED IN THE APPROPRIATE REMINDER SYSTEM. Dictated by: Leatha De La Torre MD on 12/16/2024 at 15:32 Approved by: Leatha De La Torre MD on 12/16/2024 at 15:46 Normal [facility] Cerv Spine 2 or 3 Viewson Cerv Spine 2 or 3 Views [facility] Imaging Services [address] [place] [address] [id number] Cerv Spine 2 or 3 Views MR#: [id number] Acct: [id number] Name: DINORA SPAULDING Rep #: [id number] : 1950 F 74 From: Prieto Peña MD PCP: Dr. Moose Dempsey MD Status: DEP AMB Study: Cerv Spine 2 or 3 Views Date of Exam: 12/09/24 Exam# [id number] Ordering Dr: Leeanna Dennis PROCEDURE: CERV SPINE 2 OR 3 VIEWS 12/09/2024 REASON FOR EXAM: POST OP TECHNIQUE: Procedure Code: RADSPCL Modality: DX Procedure: CERV SPINE 2 OR 3 VIEWS Frontal and lateral views of the cervical spine COMPARISON: Cervical spine radiographs on 10/28/2019 FINDINGS: Postoperative changes from anterior cervical discectomy and fusion at C3 through C5. No hardware fracture or perihardware lucency. There is multilevel disc height loss with facet arthrosis which is most pronounced at C5-6 and C6-7. Prevertebral soft tissues are normal in thickness with surgical clips projecting on the left. Lung apices are clear. RAD/Cerv Spine 2 or 3 Views IMPRESSION: Postoperative changes of the cervical spine without evidence of hardware complication. Reading Location: [facility] CC: ALLYSON Wright; Dr. Moose Dempsey MD Cooler Room Worker: Signed Normal [facility] Orthopedic Visit Reporton Orthopedic Visit Report [facility] [address] [place] [address] [address] [place] [address] OFFICE VISIT Date of Service: 12/09/24 MR#: [id number] Acct: [id number] Name: DINORA SPAULDING Rep #: [id number] : 1950 Provider: Dr. Guerrero Valdivia MD Age/Sex: 74/F Location: [facility].JESSICA Status: Signed Intake Vital Signs 10/27/24 08:58 12/09/24 08:53 Height 5 ft 2 in 5 ft 2 in Weight: 162 lb 166 lb BMI 29.6 30.3 Intake Visit Reasons: CERVICAL SPINE Chief Complaint: Cervcal spine 12 week post op Accompanied by: Is patient in pain?: No Allergies Penicillins Allergy (Verified 12/09/24 08:56) Hives Medications ???Medication ???Instructions ???Recorded ???Confirmed ???Type atenolol 25 mg tablet 25 mg PO DAILY 11/21/19 12/09/24 H istory hydrochlorothiazide 25 mg tablet 25 mg PO DAILY 11/21/19 12/09/24 H istory lovastatin 20 mg tablet 20 mg PO QHS 11/21/19 12/09/24 His tory multivitamin (Multiple Vitamins 1 tab PO DAILY 11/21/19 12/09/24 H istory tablet) omeprazole 20 mg capsule,delayed 20 mg PO .QOD 07/08/24 12/09/24 Hi story release Have you fallen in the past year?: No [facility] Medical History (Updated 12/09/24 @ 09:25 by Amaris Corey RN) Lumbar radiculopathy Obesity (BMI 30.0-34.9) Wears glasses Arthritis High cholesterol Gastric reflux [...] made by me, Dr. Guerrero Valdivia MD 12/09/24 0853. Part of today???s visit was documented by Brandy Stauffer MA and Amaris Corey RN, acting as scribe. DINORA SPAULDING is a 74 year old F here today for cervical spine 12 s/p r cervical spine 6 week post op C3-5 ACDF DOS 09-14-24. Patient states that she doesn't have any pain today. She states that she hasn't had any injections. Patient states that she just finished physical therapy at the end of October 2024. She states that she did physical therapy at [facility]. Patient states that she did 1 month of physical therapy. She states that the physical therapy did help her. Patient states that she doesn't think the surgery did really anything for her. She states that she still can't really turn her head all the way. Patient states that when she turns her head too far she will get some pain. She states that she is having trouble swallowing some medications. Patient states that she is able to swallow small pills. She states that she tries to cut her big pills in half, but she still has trouble swallowing them. Patient states that she doesn't have any pain trying to swallow. She states that when she tries to swallow, her pills come back up and they get stuck in her throat. She is not avoiding any foods. She complains of ongoing low back pain, she is scheduled for surgery for this next month. She has been using the bone stimulator daily. The patient is a 74-year-old female presenting with swallowing difficulties and lumbar spinal stenosis. The patient reports ongoing dysphagia, particularly with larger tablets and supplements, which she has been managing by cutting them into smaller pieces. She denies any significant issues with swallowing food or water, although she notes some difficulty with water. The patient is recovering from cervical spine surgery performed three months ago, with good healing observed on recent imaging. She reports no significant pain but experiences numbness and tingling in her legs, which she attributes to lumbar spinal stenosis. The patient has a history of lumbar spinal stenosis, with symptoms including numbness and tingling in the legs, which have worsened over time. She has an upcoming surgery scheduled to address this condition, with plans to repeat the MRI due to changes in symptoms. - Neurological: Reports numbness and tingling in legs. Denies headaches, dizziness, or balance issues. - Gastrointestinal: Reports difficulty swallowing larger tablets. Denies difficulty with food or water. Attestation: Documentation on this patient encounter was supported using ambient scribe technology/ voice AI technology. The patient consented to recording for the purpose o (more content not included)... Normal [facility] COMPREHENSIVE METABOLIC PANE Gus 11-09-2024 Albumin [Mass/Vol] 4.5 g/dL Normal 3.6-5.1 [facility] Comment on above: Performed By: #### 7 600, [id number] #### [facility] [address], [address] [place] [address] Stitcher Standard Machine: Yovany Garg MD Albumin/Globulin [Mass ratio] 1.8 {ratio} Normal 1.0-2.5 [facility] Comment on above: Performed By: #### 7 600, 37136 #### [facility] [place] [address] [employer]it[employer] Standard Machine: Yovany Garg MD ALP [Catalytic activity/Vol] 112 U/L Normal 37-153 [facility] Comment on above: Performed By: #### 7 600, 09568 #### [facility] [place] [address] [employer]itcher Standard Machine: Yovany Garg MD ALT [Catalytic activity/Vol] 28 U/L Normal 6-29 [facility] Comment on above: Performed By: #### 7 600, 64429 #### [facility] [place] [address] Stitcher Standard Machine: Yovany Garg MD AST [Catalytic activity/Vol] 24 U/L Normal 10-35 [facility] Comment on above: Performed By: #### 7 600, 79215 #### [facility] [place] [address] [employer] Standard Machine: Yovany Garg MD Bilirubin [Mass/Vol] 1.9 mg/dL High 0.2-1.2 [facility] Comment on above: Performed By: #### 7 600, 74030 #### [facility] [place] [address] [employer] Standard Machine: Yovany Garg MD BUN/CREATININE RATIO SEE NOTE: Normal 6-22 [facility] Comment on above: Result Comment: Not Reported: BUN and Creatinine are within reference range. Performed By: #### 7 600, 17122 #### [facility] [place] [address] [employer] Standard Machine: Yovany Garg MD Calcium [Mass/Vol] 9.9 mg/dL Normal 8.6-10.4 [facility] Comment on above: Performed By: #### 7 600, 21504 #### [facility] [place] [address] [employer] Standard Machine: Yovany Garg MD Chloride [Moles/Vol] 101 mmol/L Normal 98-110 [facility] Comment on above: Performed By: #### 7 600, 26853 #### [facility] [place] [address] [employer] Standard Machine: Yovany Garg MD CO2 [Moles/Vol] 30 mmol/L Normal 20-32 [facility] Comment on above: Performed By: #### 7 600, 56924 #### [facility] [place] [address] [employer] Standard Machine: Yovany Garg MD Creatinine [Mass/Vol] 0.86 mg/dL Normal 0.60-1.[address] [facility] Comment on above: Performed By: #### 7 600, 87387 #### [facility] [place] [address] [employer]itcher Standard Machine: Yovany Garg MD GFR/1.73 sq M.predicted among non-blacks MDRD (S/P/Bld) [Vol rate/Area] 70 mL/min/{1.73_m2} Normal > OR = 60 [facility] Comment on above: Performed By: #### 7 600, 26958 #### [facility] [place] [address] [employer]itcher Standard Machine: Yovany Garg MD Globulin (S) [Mass/Vol] 2.5 g/dL Normal 1.9-3.7 [facility] Comment on above: Performed By: #### 7 600, 34438 #### [facility] [place] [address] Stitcher Standard Machine: Yovany Garg MD Glucose [Mass/Vol] 106 mg/dL High 65-99 [facility] Comment on above: Result Comment: Fasting reference interval For someone without known diabetes, a glucose value between 100 and 125 mg/dL is consistent with prediabetes and should be confirmed with a follow-up test. Performed By: #### 7 600, 39932 #### [facility] [place] [address] Stitcher Standard Machine: Yovany Garg MD Potassium [Moles/Vol] 3.7 mmol/L Normal 3.5-5.[address] [facility] Comment on above: Performed By: #### 7 600, 16593 #### [facility] [place] [address] Stitcher Standard Machine: Yovany Garg MD Protein [Mass/Vol] 7.0 g/dL Normal 6.1-8.1 [facility] Comment on above: Performed By: #### 7 600, 90640 #### [facility] [place] [address] Stitcher Standard Machine: Yovany Garg MD Sodium [Moles/Vol] 140 mmol/L Normal 135-146 [facility] Comment on above: Performed By: #### 7 600, 43731 #### [facility] of [address], [address] [place] [address] Stitcher Standard Machine: Yovany Garg MD Urea nitrogen [Mass/Vol] 17 mg/dL Normal 7-25 [facility] Comment on above: Performed By: #### 7 600, 72919 #### [facility] [address], [address] [place] [address] Stitcher Standard Machine: Yovany Garg MD LIPID PANEL, [facility] 10-31 Cholesterol [Mass/Vol] 153 mg/dL Normal <200 [facility] Comment on above: Performed By: #### 7 600, 74573 #### [facility] [address], [address] [place] [address] Stitcher Standard Machine: Yovany Garg MD Cholesterol in HDL [Mass/Vol] 48 mg/dL Low > OR = 50 [facility] Comment on above: Performed By: #### 7 600, 12006 #### [facility] [address], [address] [place] [address] Stitcher Standard Machine: Yovany Garg MD Cholesterol in LDL [Mass/Vol] 80 mg/dL Normal [facility] Comment on above: [...] LDL-C. Hunter ALFONSO et al. [place]. 2013;310(19): 2158-0686 (http://education.Linio.[employer]faq/UUB301) Performed By: #### 7 600, 22022 #### [facility] of [address], [address] [place] [address] Stitcher Standard Machine: Yovany Garg MD Cholesterol.total/Mari sterol in HDL [Mass ratio] 3.2 {ratio} Normal <5.0 [facility] Comment on above: Performed By: #### 7 600, 74208 #### [facility] [address] [place] [address], [address] [place] [address] Stitcher Standard Machine: Yovany Garg MD NON HDL CHOLESTEROL 105 mg/dL (calc) Normal <130 [facility] Comment on above: Result Comment: For patients with diabetes plus 1 major ASCVD risk factor, treating to a non-HDL-C goal of <100 mg/dL (LDL-C of <70 mg/dL) is considered a therapeutic option. Performed By: #### 7 600, 42112 #### [facility] [address], [address] [place] [address] Stitcher Standard Machine: Yovany Garg MD Triglyceride [Mass/Vol] 153 mg/dL High <150 [facility] Comment on above: Performed By: #### 7 600, 33093 #### [facility] [address], [address] [place] [address] Stitcher Standard Machine: Yovany Garg MD Cerv Spine 2 or 3 Viewson Cerv Spine 2 or 3 Views [facility] Imaging Services [address] [place], [place] [address] Cerv Spine 2 or 3 Views MR#: [id number] Acct: [id number] Name: DINORA SPAULDING Rep #: [id number] : 1950 F 74 From: Kevin Mathur MD PCP: Dr. Moose Dempsey MD Status: DEP AMB Study: Cerv Spine 2 or 3 Views Date of Exam: 10/27/24 Exam# [id number] Ordering Dr: Leeanna Dennis EXAM: XR Cervical Spine, 2 or 3 Views CLINICAL INDICATION: POST OP TECHNIQUE: Frontal and lateral views of the cervical spine. COMPARISON: XR Cervical Spine dated 09/29/2024 FINDINGS: VERTEBRAE: Multilevel endplate degenerative changes and disc degeneration of cervical spine. No definite fracture. Normal alignment. DISC SPACES: Status post anterior fusion of C3-C5 with disc spacers. Intact hardware. SOFT TISSUES: Unremarkable. RAD/Cerv Spine 2 or 3 Views IMPRESSION: 1. Postoperative changes as above. 2. No significant change from the prior exam. Reading Location: [facility] CC: ALLYSON Wright; Dr. Moose Dempsey MD Cooler Room Worker: Signed Normal [facility] Orthopedic Visit Reporton Orthopedic Visit Report [facility] [address] [place] [address] OFFICE VISIT Date of Service: 10/27/24 MR#: [id number] Acct: [id number] Name: DINORA SPAULDING Rep #: [id number] : 1950 Provider: ALLYSON Wright Age/Sex: 74/F Location: [facility].JESSICA Status: Signed Intake Vital Signs 07/28/24 13:21 09/29/24 09:03 10/27/24 08:58 Height 5 ft 2 in 5 ft 2 in 5 ft 2 in Weight: 162 lb BMI 29.6 Intake Visit Reasons: cervical spine Chief Complaint: Cervcal spine 6 week post op Accompanied by: Is patient in pain?: No Allergies Penicillins Allergy (Verified 10/27/24 09:01) Hives Medications ???Medication ???Instructions ???Recorded ???Confirmed ???Type atenolol 25 mg tablet 25 mg PO DAILY 11/21/19 10/27/24 H istory hydrochlorothiazide 25 mg tablet 25 mg PO DAILY 11/21/19 10/27/24 H istory lovastatin 20 mg tablet 20 mg PO QHS 11/21/19 10/27/24 His tory multivitamin (Multiple Vitamins 1 tab PO DAILY 11/21/19 10/27/24 H istory tablet) omeprazole 20 mg capsule,delayed 20 mg PO .QOD 07/08/24 10/27/24 Hi story release Have you fallen in [...] provided and the decisions made by me, ALLYSON Wright 10/27/24 0858. Part of today???s visit was documented by Brandy Stauffer MA, acting as scribe. DINORA SPAULDING is a 74 year old F here today for cervical spine 6 week post op C3-5 ACDF. Patient states that she doesn't have any pain today. She states that she hasn't recovered from surgery yet. Patient states that her pain has been worse since the surgery. She is currently doing physical therapy at [facility]. Patient has done about 8 sessions. She thinks that physical therapy is helping a little, but at this point she thinks she can do it herself. Patient hasn't had any recent injections. She states that she reyna have pain when she turns to her left side. The pain is mainly sore. Patient also reports some mild issues with swallowing larger pills but she denies any dysphagia with foods. Patient is also planned to have a three-level lumbar fusion with us in December. Patient says that she has continued to wear the cervical collar at night and while in the car. She has been wearing her bone stimulator daily. Ortho Exam General General: Yes no acute distress Neurologic: Yes alert and Yes oriented x3 Psychologic: Yes reasonable and appropriate Spine SPINE TESTING CERVICAL THORACIC LUMBAR Musculoskeletal Strength 0=absent - 5=normal Details: Neurological exam of the upper extremities shows 5X5 power. Normal sensation across all dermatomes. Physical examination of the neck shows a well-healed and dried incision. Coding Level of Care Code Global Post Op Diagnoses Status post cervical spinal fusion Z98.1 Assessment and Plan Assessment and Plan (1) Status post cervical spinal fusion: Status: Acute Orders: Orders Cerv Spine 2 or 3 Views Today Z98.1 - Arthrodesis status Plan Obtained reviewed cervical x-rays today in the clinic. Independent interpretation of the x-rays was performed. X-rays show hardware and bone graft in good position. Patient is now 6 weeks postop C3-5 ACDF. Continue restrictions and no bending, lifting, twisting greater than 15 to 20 pounds. Recommend that the patient no longer wear the cervical collar. Continue to take as needed ibuprofen and Tylenol [id number]-[id number]-adtjyoo for pain. Patient says that physical therapy does not do anything with her that she is not able to do on her own at home. Discussed that this is up to her discretion if she wants to continue outpatient therapy or if she wishes to just continue the home exercise program. Recommend that she continue to do gentle range of motion of the neck. She will follow-up with us in 6 weeks for her 3-month follow-up. Patient is in agreement. Clinical Quality Measures Falls Risk Screening/Assistive Anna Marie (more content not included)... Normal [facility] Cerv Spine 2 or 3 Viewson Cerv Spine 2 or 3 Views [facility] Imaging Services [address] [place] [id number] Cerv Spine 2 or 3 Views MR#: [id number] Acct: [id number] Name: DINORA SPAULDING Rep #: [id number] : 1950 F 74 From: Adalberto Loaiza MD PCP: Dr. Moose Dempsey MD Status: DEP [facility] Study: Cerv Spine 2 or 3 Views Date of Exam: 09/29/24 Exam# [id number] Ordering Dr: Leeanna Dennis PROCEDURE: CERV SPINE 2 OR 3 VIEWS 09/29/2024 REASON FOR EXAM: S/P CERVICAL FUSION TECHNIQUE: CERV SPINE 2 OR 3 VIEWS COMPARISON: 09/15/2024 FINDINGS: Status post ACDF, C3 through C5. Intact hardware. Anatomic alignment. C6 through T1 disc space narrowing and anterior osteophyte formation. No acute bone or soft tissue pathology. Clear lung apices. RAD/Cerv Spine 2 or 3 Views IMPRESSION: Unremarkable postoperative appearance. Disclaimer: Reading Location: [facility] CC: ALLYSON Wright; Dr. Moose Dempsey MD Cooler Room Worker: Signed Normal [facility] Orthopedic Visit Reporton Orthopedic Visit Report [facility] [address] [place] [address] OFFICE VISIT Date of Service: 09/29/24 MR#: [id number] Acct: [id number] Name: DINORA SPAULDING Rep #: [id number] : 1950 Provider: Dr. Guerrero Valdivia MD Age/Sex: 74/F Location: [facility].JESSICA Status: Signed Intake Vital Signs 07/28/24 13:21 09/18/24 09:07 09/29/24 09:03 Height 5 ft 2 in 5 ft 2 in 5 ft 2 in Weight: 166 lb BMI 30.3 Intake Visit Reasons: cervical spine Chief Complaint: Cervcal spine 2 week post op Accompanied by: Is patient in pain?: No Allergies Penicillins Allergy (Verified 09/29/24 09:06) Hives Medications ???Medication ???Instructions ???Recorded ???Confirmed ???Type atenolol 25 mg tablet 25 mg PO DAILY 11/21/19 09/29/24 H istory hydrochlorothiazide 25 mg tablet 25 mg PO DAILY 11/21/19 09/29/24 H istory lovastatin 20 mg tablet 20 mg PO QHS 11/21/19 09/29/24 His tory multivitamin (Multiple Vitamins 1 tab PO DAILY 11/21/19 09/29/24 H istory tablet) omega 6-hjp-bss-fish oil 1,000 mg 1 cap PO DAILY 11/21/19 09/29/24 History (120 mg-180 mg) capsule (Fish Oil) turmeric root extract 500 mg 500 mg PO DAILY 11/21/19 09/29/24 History capsule omeprazole 20 mg capsule,delayed 20 mg PO .QOD 07/08/24 09/29/24 Hi story release hydrocodone-acetaminoph en 5-325mg 1 tab PO Q6H PRN pain 7 days #28 09/15/24 09/29/24 Rx 5mg-325mg tabs meloxicam 15 mg tablet 15 mg PO DAILY #30 tabs 09/15/24 0 09/29/24 Rx methocarbamol 500 mg tablet 500 - 750 mg (1 - 1.5 x 500 mg) PO 09/15/24 09/29/24 Rx TID PRN pain/spasms #30 tabs sennosides 8.6 mg-docusate sodium 2 tab PO BID PRN constipation #30 09/15/24 09/29/24 Rx 50 mg tablet (Stimulant Laxative tabs Plus) Have you fallen in the past year?: [...] made by me, Dr. Guerrero Valdivia MD 09/29/24 0903. Part of today???s visit was documented by Brandy Stauffer MA and Amaris Corey RN, acting as scribe. DINORA SPAULDING is a 74 year old F here today for 2 week post op C3-5 ACDF, DOS 09-14-24. Patient states that she isn't having any pain in her cervical spine today. She states that ever since the surgery she doesn't see a difference with the numbness in her legs. She states that the numbness is still in her legs. Patient states that the numbness is about the same as it was prior to surgery. The numbness is mostly in the left leg, but there is some numbness in the right foot. Patient hasn't started physical therapy yet. She is currently taking meloxicam, but she states that she hasn't been needing any pain medications. She is having trouble swallowing larger pills like Tylenol. She denies any other issues with dysphagia, she takes small bites and chews thoroughly. She has been eating mostly soft foods but she did have crackers yesterday without an issue. She denies any issues with balance while ambulating. She is not dropping items from her hand. She has been wearing her bone stimulator daily. She would like to schedule her lumbar surgery before the end of the year. The patient is a 74-year-old female presenting with spinal cord compression and lower back pain. The spinal cord compression has been a silent issue, not causing significant pain but affecting function below the neck. The patient has been wearing a collar, which is now being weaned off gradually. Physical therapy is planned to improve range of motion. The patient reports dysphagia, particularly with larger pills, which has led to choking incidents. She manages smaller tablets by crushing them and has been cautious with her diet, opting for softer foods. Lower back pain is significant, with the patient experiencing leg weakness after walking for about 10 minutes, which does not cause falls but affects mobility. Surgical intervention is being considered, with a preference to schedule before the end of the year to a (more content not included)... Normal [facility] Anion gap in Serum or Plasma Ordered By: Peter Ornelas on 09-18-2024 Anion gap [Moles/Vol] 12 mmol/L 5-15 [facility] BUN/creatinine ratioOrdered By: Peter Ornelas on 09-18-2024 Urea nitrogen/Creatinine [Mass ratio] 23.6 mg/mg High 12-19 [facility] Basic Metabolic Profile (BMP )on 09-18-2024 BUN/CRE 23.6 RATIO High [facility] Comment on above: Performed By: #### L 500.2500 ####[facility] [address] [place], [address] Calcium [Mass/Vol] 10.0 mg/dL Normal 7.6-11.0 [facility] Comment on above: Performed By: #### L 500.2500 ####[facility] [address] [place], [address] Chloride [Moles/Vol] 99 mmol/L Normal 98-108 [facility] Comment on above: Performed By: #### L 500.2500 ####[facility] [address] [place], [address] CO2 [Moles/Vol] 27.6 mmol/L Normal 21.0-32.0 [facility] Comment on above: Performed By: #### L 500.2500 ####[facility] [address] [place], [address] Creatinine [Mass/Vol] 0.95 mg/dL Normal 0.70-1.20 [facility] Comment on above: Performed By: #### L 500.2500 ####[facility] [address] [place], [address] ECRCL 48.56 ml/min Low 50-250 [facility] Comment on above: Performed By: #### L 500.2500 ####[facility] [address] [place], [address] GAP 12 Normal 5-15 [facility] Comment on above: Performed By: #### L 500.2500 ####[facility] [address] [place], [address] GFR/1.73 sq M.predicted among non-blacks MDRD (S/P/Bld) [Vol rate/Area] 62 mL/min/{1.73_m2} Normal >60 [facility] Comment on above: Result Comment: mL/m in/1.73m2 CKD-EPI Creatinine Equation (2020) Performed By: #### L 500.2500 ####[facility] [address] [place], [address] Glucose [Mass/Vol] 117 mg/dL High 70-99 [facility] Comment on above: Performed By: #### L 500.2500 ####[facility] [address] [place], [address] Potassium [Moles/Vol] 3.7 mmol/L Normal 3.3-5.1 [facility] Comment on above: Performed By: #### L 500.2500 ####[facility] [address] [place], [place], [address] Sodium [Moles/Vol] 138 mmol/L Normal 133-145 [facility] Comment on above: Performed By: #### L 500.2500 ####[facility] [address] [place], [address] Urea nitrogen [Mass/Vol] 23 mg/dL High 4-19 [facility] Comment on above: Performed By: #### L 500.2500 ####[facility] [address] [facility] [place], [place], [address] Carbon dioxide, total [Moles /volume] in Central venous bloodOrdered By: Peter Ornelas on 09-18-2024 CO2 [Moles/Vol] 27.6 mmol/L 21.0-32.0 [facility] Chloride assayOrdered By: Christiano Ornelas on 09-18-2024 Chloride [Moles/Vol] 99 mmol/L 98-108 [facility] Emergency Department Summary on 09-18-2024 Emergency Department Summary [facility] Medical Records Department [address] [place] [address] Emergency Department Summary 09/18/24 MR#: [id number] Acct: [id number] Name: DINORA SPAULDING Rep #: [id number] : 1950 74 From: Peter Ornelas MD PCP: Dr. Moose Dempsey MD Status:REG ER Location: ED HPI History of Present Illness Chief Complaint: Hypertension Detail of Chief Complaint: Concerned because of elevated blood pressure and headache yesterday Informant: patient Onset/Context/Timing Onset: Today and Yesterday Context: - (Unknown) Timing: Waxes and wanes Quality: Patient with history of hypertension who presents because of elevated blood Current Severity: Mild Maximum Severity: Mild Worsened by: Possibly pain Relieved by: Pain medicine Associated Symptoms Associated Symptoms: Vertex headache yesterday Narrative Narrative: Patient is a 74-year-old woman. She has history hypertension. She is presently on hydrochlorothiazide and metoprolol. Her medication dose has not been changed for some time. She took her blood pressure because she had a vertex headache yesterday. This occurred at rest. She is status post fusion C3-4-5 this past week by Dr. Garcia. She has had elevated blood pressures today as well. She contacted Dr. Garcia who reported concern and reason she presents. She denied double vision, blurred vision loss of vision. She denies trouble with speech or swallowing. She complains of numbness in her feet. She had this numbness prior to the surgery. She has no other complaints. She reports compliance with her medicine and compliance with her diet. Prior similar symptoms: Yes Recent Illness/Hospitalization : [facility] Medical History Wears glasses Arthritis High cholesterol Gastric reflux Non-smoker History of pain when walking History of stress test Cataract Hyperlipidemia HTN (hypertension) Home Medications ???Medication ???Instructions ???Recorded ???Last Taken ???Type atenolol 25 mg tablet 25 mg PO DAILY 11/21/19 09/14/24 H istory hydrochlorothiazide 25 mg tablet 25 mg PO DAILY 11/21/19 09/13/24 H istory lovastatin 20 mg tablet 20 mg PO QHS 11/21/19 09/13/24 His tory multivitamin (Multiple Vitamins 1 tab PO DAILY 11/21/19 09/13/24 H istory tablet) omega 1-iaw-vkq-fish oil 1,000 mg 1 cap PO DAILY 11/21/19 08/31/24 History (120 mg-180 mg) capsule (Fish Oil) turmeric root extract 500 mg 500 mg PO DAILY 11/21/19 09/13/24 History capsule omeprazole 20 mg capsule,delayed 20 mg PO .QOD 07/08/24 09/14/24 Hi story release hydrocodone-acetaminoph en 5-325mg 1 tab PO Q6H PRN pain 7 days #28 09/15/24 Unknown Rx 5mg-325mg tabs meloxicam 15 mg tablet 15 mg PO DAILY #30 tabs 09/15/24 U nknown Rx methocarbamol 500 mg tablet 500 - 750 mg (1 - 1.5 x 500 mg) PO 09/15/24 Unknown Rx TID PRN pain/spasms #30 tabs sennosides 8.6 mg-docusate sodium 2 tab PO BID PRN constipation #30 09/15/24 Unknown Rx 50 mg tablet (Stimulant Laxative tabs Plus) Allergy/AdvReac Type Severity Reaction Status Date / Time Penicillins Allergy Hives Verified 09/18/24 09:08 Family History Mother Cancer Father Heart problem Surgical History H/O removal of cyst History of lumbar laminectomy H/O: hysterectomy Social History household members: spouse housing: house Smoking Status: Never smoker alcohol intake: never what type of physical activity do you participate in: none do you feel safe at home: Yes ROS ROS ED Constitutional Constitutional ED: Denies chills, fever(s), subjective, sweats or weight loss Eyes Eyes: Denies blurry vision, change in vision or diplopia ENT ENT ED: Reports other Details: Further detailed HPI narrative ; Denies ear pain, rhinorrhea or sore throat Cardiovascular Cardiovascular: Denies chest pain, orthopnea, palpitations or paroxysmal nocturnal dyspnea Respiratory/Chest Respiratory/Chest: Denies cough, dyspnea, dyspnea on exertion, orthopnea or paroxysmal nocturnal dyspnea Gastrointestinal Gastrointestinal: Denies abdominal pain, nausea or vomiting Musculoskeletal Musculoskeletal: Reports neck pain Integumentary Denies rash Neurologic Neurologic: Reports headache(s) and paresthesias RLE and LLE; Denies weakness Psychiatric Psychiatric: Denies anxiety or depression Hematologic/Lymphatic Hematologic/Lymphatic: Reports systems reviewed and no addt'l complaints, except as documented EXAM Physical Exam Const Vital Signs: 09/18/24 09:07 09/18/24 09:07 09/18/24 10:10 Temperature 97.3 F L Temperature Source Temporal Pulse Rate 76 76 69 Respirato (more content not included)... Normal [facility] Glomerular filtration rate ( GFR) estimation/1.73 sq m using serum, plasma, or whole bOrdered By: Peter Ornelas on 09-18-2024 GFR/1.73 sq M.predicted among non-blacks MDRD (S/P/Bld) [Vol rate/Area] 62 mL/min/{1.73_m2} >60 [facility] Comment on above: mL/min/1.73m2 CKD-EP I Creatinine Equation (2020) Potassium measurement (mass/ volume)Ordered By: Peter Ornelas on 09-18-2024 Potassium (Unsp spec) [Mass/Vol] 3.7 mmol/L 3.3-5.1 [facility] Serum creatinine measurement (mass/volume)Ordered By: Peterchrissy Ornelas on 09-18-2024 Creatinine [Mass/Vol] 0.95 mg/dL 0.70-1.20 [facility] Serum glucose measurement (m ass/volume)Ordered By: Peter Ornelas on 09-18-2024 Glucose [Mass/Vol] 117 mg/dL High 70-99 [facility] Serum or plasma calcium adri urement (mass/volume)Ordered By: Peterchrissy Ornelas on 09-18-2024 Calcium [Mass/Vol] 10.0 mg/dL 7.6-11.0 [facility] Serum or plasma urea nitroge n measurement (mass/volume)Ordered By: Peter Ornelas on 09-18-2024 Urea nitrogen [Mass/Vol] 23 mg/dL High 4-19 [facility] Sodium levelOrdered By: Peterchrissy Ornelas on 09-18-2024 Sodium [Moles/Vol] 138 mmol/L 133-145 [facility] Absolute lymphocyte countOrd ered By: Leeanna Dennis on 09-15-2024 Lymphocytes Auto (Unsp spec) [#/Vol] 0.85 10*3/uL 0.83-4.51 [facility] Absolute neutrophil countOrd ered By: Leeanna Dennis on 09-15-2024 Neutrophils (Bld) [#/Vol] 14.1 10*3/uL High 2.0-7.7 [facility] Anion gap in Serum or Plasma Ordered By: Leeanna Dennis on 09-15-2024 Anion gap [Moles/Vol] 14 mmol/L 5-15 [facility] Automated lymphocyte count a s percentage of total leukocytesOrdered By: Leeanna Dennis on 09-15-2024 Lymphocytes/100 WBC Auto (Unsp spec) 5.5 % Low 19-41 [facility] BUN/creatinine ratioOrdered By: Leeanna Dennis on 09-15-2024 Urea nitrogen/Creatinine [Mass ratio] 19.8 mg/mg 10- [facility] Basic Metabolic Profile (BMP )on 09-15-2024 BUN/CRE 19.8 RATIO Normal 10-20 [facility] Comment on above: Performed By: #### L 500.2500, L100.0100 ####[facility] [address] [place], [address] ECRCL 45.23 ml/min Low 50-250 [facility] Comment on above: Performed By: #### L 500.2500, L100.0100 ####[facility] [address] [place], [address] GAP 14 Normal 5-15 [facility] Comment on above: Performed By: #### L 500.2500, L100.0100 ####[facility] [address] [place], [address] Potassium [Moles/Vol] 3.9 mmol/L Normal 3.3-5.1 [facility] Comment on above: Performed By: #### L 500.2500, L100.0100 ####[facility] [address] [place], [address] Basophil percentageOrdered B y: Leeanna Dennis on 09-15-2024 Basophils/100 WBC (Bld) 0.1 % 0-1 [facility] CBC W/Diff, Automatedon 08-30 Absolute Lymph 0.85 X10 3/uL Normal 0.83-4.51 [facility] Comment on above: Performed By: #### L 500.2500, L100.0100 ####[facility] [address] [place], [address] Absolute Neut 14.1 X10 3/uL High 2.0-7.7 [facility] Comment on above: Performed By: #### L 500.2500, L100.0100 ####[facility] [address] [place], [address] Basophils/100 WBC (Bld) 0.1 % Normal 0-1 [facility] Comment on above: Performed By: #### L 500.2500, L100.0100 ####[facility] [address] [place], [address] Eosinophils/100 WBC (Bld) 0.0 % Normal 0-5 [facility] Comment on above: Performed By: #### L 500.2500, L100.0100 ####[facility] [address] [place], [address] Erythrocyte distribution width (RBC) [Ratio] 13.5 % Normal 11.6-14.6 [facility] Comment on above: Performed By: #### L 500.2500, L100.0100 ####[facility] [address] [place], [address] Hematocrit (Bld) [Volume fraction] 41.7 % Normal 37-47 [facility] Comment on above: Performed By: #### L 500.2500, L100.0100 ####[facility] [address] [place], [address] Hemoglobin (Bld) [Mass/Vol] 14.4 g/dL Normal 12.0-15.0 [facility] Comment on above: Performed By: #### L 500.2500, L100.0100 ####[facility] [address] [place], [address] IG% 1.000 High 0.0-0.9 [facility] Comment on above: Result Comment: IG% - Immature Granulocytes (promyelocytes, myelocytes and metamyelocytes) > 1% indicates that a LEFT SHIFT is Present. Performed By: #### L 500.2500, L100.0100 ####[facility] [address] [place], [address] Lymphocytes/100 WBC (Bld) 5.5 % Low 19-41 [facility] Comment on above: Performed By: #### L 500.2500, L100.0100 ####[facility] [address] [place], [address] MCH (RBC) [Entitic mass] 29.1 pg Normal 27.0-32.0 [facility] Comment on above: Performed By: #### L 500.2500, L100.0100 ####[facility] [address] [place], [address] MCHC (RBC) [Mass/Vol] 34.5 g/dL Normal 32-36 [facility] Comment on above: Performed By: #### L 500.2500, L100.0100 ####[facility] [address] [place], [address] MCV (RBC) [Entitic vol] 84.4 fL Normal 81-99 [facility] Comment on above: Performed By: #### L 500.2500, L100.0100 ####[facility] [address] [place], [address] Monocytes/100 WBC (Bld) 2.4 % Normal 0-10 [facility] Comment on above: Performed By: #### L 500.2500, L100.0100 ####[facility] [address] [place], [address] Neutrophils/100 WBC (Bld) 91.0 % High 47-70 [facility] Comment on above: Performed By: #### L 500.2500, L100.0100 ####[facility] [address] [place], [address] Nucleated RBC (Bld) [#/Vol] 0 10*3/uL Normal 0-5 [facility] Comment on above: Performed By: #### L 500.2500, L100.0100 ####[facility] [address] [place], [address] Platelet mean volume (Bld) [Entitic vol] 9.8 fL Normal 6.2-12.0 [facility] Comment on above: Performed By: #### L 500.2500, L100.0100 ####[facility] [address] [place], [address] Platelets (Bld) [#/Vol] 269 10*3/uL Normal 150-450 [facility] Comment on above: Performed By: #### L 500.2500, L100.0100 ####[facility] [address] [place], [address] RBC (Bld) [#/Vol] 4.94 10*6/uL Normal 4.2-5.4 [facility] Comment on above: Performed By: #### L 500.2500, L100.0100 ####[facility] [address] [place], [address] RDW SD 41.9 fl Normal 35.1-43.9 [facility] Comment on above: Performed By: #### L 500.2500, L100.0100 ####[facility] [address] [place], [address] WBC (Bld) [#/Vol] 15.5 10*3/uL High 4.4-11.0 [facility] Comment on above: Performed By: #### L 500.2500, L100.0100 ####[facility] [address] [place], [address] Carbon dioxide, total [Moles /volume] in Central venous bloodOrdered By: Leeanna Dennis on 09-15-2024 CO2 [Moles/Vol] 20.9 mmol/L Low 21.0-32.0 [facility] Comment on above: Performed By: #### L 500.2500, L100.0100 ####[facility] [address] [place], [address] Cerv Spine 2 or 3 Viewson Cerv Spine 2 or 3 Views [facility] Imaging Services [address] [place] [address] Cerv Spine 2 or 3 Views MR#: [id number] Acct: [id number] Name: DINORA SPAULDING Rep #: [id number] : 1950 F 74 From: Adalberto Loaiza MD PCP: Dr. Moose Dempsey MD Status: ADM [facility] Study: Cerv Spine 2 or 3 Views Date of Exam: 09/15/24 Exam# [id number] Ordering Dr: Leeanna Dennis PROCEDURE: CERV SPINE [...] IMPRESSION: Unremarkable postoperative appearance. Disclaimer: Reading Location: [place] [address] CC: ALLYSON Wright; Dr. Moose Dempsey MD Cooler Room Worker: Signed Normal [facility] Chloride assayOrdered By: Fide Dennis on 09-15-2024 Chloride [Moles/Vol] 101 mmol/L Normal 98-108 [facility] Comment on above: Performed By: #### L 500.2500, L100.0100 ####[facility] [address] [place], [address] Eosinophil percentageOrdered By: Leeanna Dennis on 09-15-2024 Eosinophils/100 WBC (Bld) 0.0 % 0-5 [facility] Erythrocyte distribution wid th ratioOrdered By: Leeanna Dennsi on 09-15-2024 Erythrocyte distribution width (RBC) [Ratio] 13.5 % 11.6-14.6 [facility] Erythrocyte distribution wid th standard deviationOrdered By: Leeanna Dennis on 09-15-2024 Erythrocyte distribution width (RBC) [Ratio] 41.9 fl 35.1-43.9 [facility] Glomerular filtration rate ( GFR) estimation/1.73 sq m using serum, plasma, or whole bOrdered By: Leeanna Dennis on 09-15-2024 GFR/1.73 sq M.predicted among non-blacks MDRD (S/P/Bld) [Vol rate/Area] 58 mL/min/{1.73_m2} Low >60 [facility] Comment on above: mL/min/1.73m2 CKD-EP I Creatinine Equation (2020) Result Comment: mL/m in/1.73m2 CKD-EPI Creatinine Equation (2020) Performed By: #### L 500.2500, L100.0100 ####[facility] [address], [place], [address] Hematocrit Auto (Bld) [Volum e fraction]Ordered By: Leeanna Dennis on 09-15-2024 Hematocrit (Bld) [Volume fraction] 41.7 % 37-47 [facility] Hemoglobin measurementOrdere d By: Leeanna Dennis on 09-15-2024 Hemoglobin (Bld) [Mass/Vol] 14.4 g/dL 12.0-15.0 [facility] Immature granulocytes/100 WB C Auto (Bld)Ordered By: Leeanna Dennis on 09-15-2024 Immature granulocytes/100 WBC (Bld) 1.000 % High 0.0-0.9 [facility] Comment on above: IG% - Immature Granu locytes (promyelocytes, myelocytes and metamyelocytes) > 1% indicates that a LEFT SHIFT is Present. MCV (mean corpuscular volume ) determinationOrdered By: Leeanna Dennis on 09-15-2024 MCV (RBC) [Entitic vol] 84.4 fL 81-99 [facility] Mean corpuscular hemoglobin (MCH) determinationOrdered By: Leeanna Dennis 09-15-2024 MCH (RBC) [Entitic mass] 29.1 pg 27.0-32.0 [facility] Mean corpuscular hemoglobin concentration (MCHC) determinationOrdered By: Leeanna Dennis on 09-15-2024 MCHC (RBC) [Mass/Vol] 34.5 g/dL 32-36 [facility] Mean platelet volume determi nationOrdered By: Leeanna Dennis on 09-15-2024 Platelet mean volume (Bld) [Entitic vol] 9.8 fL 6.2-12.0 [facility] Monocyte percentageOrdered B y: Leeanna Dennis on 09-15-2024 Monocytes/100 WBC (Bld) 2.4 % 0-10 [facility] Neutrophil percentageOrdered By: Leeanna Dennis on 09-15-2024 Neutrophils/100 WBC (Bld) 91.0 % High 47-70 [facility] Nucleated red blood cell per centageOrdered By: Leeanna Dennis on 09-15-2024 Nucleated RBC/100 WBC (Bld) [Ratio] 0 % 0-5 [facility] Platelet countOrdered By: Fide Dennis on 09-15-2024 Platelets (Bld) [#/Vol] 269 10*3/uL 150-450 [facility] Potassium measurement (mass/ volume)Ordered By: Leeanna Dennis on 09-15-2024 Potassium (Unsp spec) [Mass/Vol] 3.9 mmol/L 3.3-5.1 [facility] RBC Auto (Bld) [#/Vol]Ordere d By: Leeanna Dennis on 09-15-2024 RBC (Bld) [#/Vol] 4.94 10*6/uL 4.2-5.4 [facility] Serum creatinine measurement (mass/volume)Ordered By: Leeanna Dennis on 09-15-2024 Creatinine [Mass/Vol] 1.01 mg/dL Normal 0.70-1.20 [facility] Comment on above: Performed By: #### L 500.2500, L100.0100 ####[facility] [address] [place], [place], [id number] Serum glucose measurement (m ass/volume)Ordered By: Leeannalit Dennis on 09-15-2024 Glucose [Mass/Vol] 157 mg/dL High 70-99 [facility] Comment on above: Performed By: #### L 500.2500, L100.0100 ####[facility] [address], [address] Serum or plasma calcium adri urement (mass/volume)Ordered By: Leeanna Dennis on 09-15-2024 Calcium [Mass/Vol] 9.1 mg/dL Normal 7.6-11.0 [facility] Comment on above: Performed By: #### L 500.2500, L100.0100 ####[facility] [address] [place], [address] Serum or plasma urea nitroge n measurement (mass/volume)Ordered By: Leeanna Dennis on 09-15-2024 Urea nitrogen [Mass/Vol] 20 mg/dL High 4-19 [facility] Comment on above: Performed By: #### L 500.2500, L100.0100 ####[facility] [address] [place], [address] Sodium levelOrdered By: Caroline Corralk on 09-15-2024 Sodium [Moles/Vol] 136 mmol/L Normal 133-145 [facility] Comment on above: Performed By: #### L 500.2500, L100.0100 ####[facility] [address], [address] White blood cell (WBC) count Ordered By: Leeanna Dennis on 09-15-2024 WBC (Bld) [#/Vol] 15.5 10*3/uL High 4.4-11.0 [facility] Bedside Glucoseon 09-14-2024 FINGERSTICK GLU 111 mg/dL High 74-106 [facility] Comment on above: Result Comment: CHRIS MAHMOOD OF PATIENT CARE PER NURSING PROTOCOL Performed By: #### L 501.080 ####[facility] [address] [place], [address] Cerv Spine 2 or 3 Viewson Cerv Spine 2 or 3 Views [facility] Imaging Services [address] [place] [address] Cerv Spine 2 or 3 Views MR#: [id number] Acct: [id number] Name: DINORA SPAULDING Rep #: [id number] : 1950 F 74 From: Kevin Mathur MD PCP: Dr. Moose Dempsey MD Status: [facility] Study: Cerv Spine 2 or 3 Views Date of Exam: 09/14/24 Exam# [id number] Ordering Dr: Guerrero Valdivia MD EXAM: XR [...] operative note for further details. Reading Location: [facility] CC: Dr. Guerrero Valdivia MD; Dr. Moose Dempsey MD Cooler Room Worker: Signed Normal [facility] Consultation - Hospitaliston 09-14-2024 Consultation - Hospitalist [facility] Medical Records Department [address] [place] [address] Consultation - Hospitalist 09/14/24 1411 MR#: [id number] Acct: [id number] Name: DINORA SPAULDING Rep #: [id number] : 1950 74 From: Carlos Curry DO PCP: Dr. Moose Dempsey MD Status:ADM [facility] Assessment Plan Assessment/Plan (1) Status post cervical spinal fusion: PLAN: Plan Patient is a 74-year-old female who presented to [facility] on 09/14/2024 for planned cervical spine fusion [...] is a 74 F who presented to [facility] on 09/14/2024 for planned orthopedic procedure. Medicine [...] No other acute concerns at this time. [facility] Medical History Wears glasses Arthritis High cholesterol Gastric reflux Non-smoker History of pain when walking History of stress test Cataract Hyperlipidemia HTN (hypertension) Home Medications ???Medication ???Instructions ???Recorded ???Last Taken ???Type atenolol 25 mg tablet 25 mg PO DAILY 11/21/19 09/14/24 H istory glucosamine 500 mg-msm 100 mg-vit 1 cap PO DAILY 11/21/19 09/13/24 History C 20 mf-ecdrs-zrbh-primrose capsule hydrochlorothiazide 25 mg tablet 25 mg PO DAILY 11/21/19 09/13/24 H istory lovastatin 20 mg tablet 20 mg PO QHS 11/21/19 09/13/24 His tory multivitamin (Multiple Vitamins 1 tab PO DAILY 11/21/19 09/13/24 H istory tablet) omega 2-jfc-hxy-fish oil 1,000 mg 1 cap PO DAILY [...] PERRL, EOMs (more content not included)... Normal [facility] Glucose [facility] at [facility] deOrdered By: Guerrero Valdivia on 09-14-2024 Glucose [Mass/Vol] 111 mg/dL High 74-106 [facility] Comment on above: MANAGEMENT OF PATIEN T CARE PER NURSING PROTOCOL MR/POSTOP.ANEon 09-14-2024 MR/POSTOP.[facility] Medical Records Department [address] [place] [address] Anesthesia Postop Eval I 09/14/24 1139 MR#: [id number] Acct: [id number] Name: HILL SPAULDINGAN RIZWAN Rep #: [id number] : 1950 74 From: Fatuma Cueto CRNA PCP: Dr. Moose Dempsey MD Status:REG WIC Y Race: C Location: [place] [address] Anesthesia: Postop Eval I Current Vital Signs [...] completed: Yes 09/14/24 1140 Date Fatuma Cueto BALL MILL OPERATOR Cosigner Signature: Date CC: Signed Normal [facility] MR/ARYWZRNV8gi 09-14-2024 MR/POSTOPAN2 [facility] Medical Records Department [address] [place] [address] Anesthesia Postop Eval II 09/14/24 1608 MR#: [id number] Acct: [id number] Name: JASSONDINORA LANDA Rep #: [id number] : 1950 74 From: Nikhil Pineda MD PCP: Dr. Moose Dempsey MD Status:ADM SALINAS Y Race: C Location: PR3 [id number] Anesthesia Postop Eval I Sum Postop Eval Completion status Anesthesia document: Postop Eval 1 completed: Yes Anesthesia Postop Eval I Summary Anesthesia Postop Eval I Summary: Anesthesia Postop Eval I: Assessment Summary Airway patent Yes 09/14/24 11:40 BALL MILL OPERATOR.SKOBY Spontaneous unlabored Yes 09/14/24 11:40 BALL MILL OPERATOR.SKOBY respirations Mental status Asleep 09/14/24 11:40 BALL MILL OPERATOR.SKOBY nausea No 09/14/24 11:40 BALL MILL OPERATOR.SKOBY Vomiting No 09/14/24 11:40 BALL MILL OPERATOR.SKOBY Anesthesia Postop Eval I: Fluid Summary Crystalloid volume administer 600 09/14/24 11:40 BALL MILL OPERATOR.SKOBY (ml) Colloids volume administered ( ml) Blood Product volume administered (ml) Total IV fluid infused 600 09/14/24 11:40 BALL MILL OPERATOR.SKOBY Anesthesia Postop Eval I: Summary Notes Anesthesia Complication No 09/14/24 11:40 BALL MILL OPERATOR.SKOBY Anesthesia Complication Comment: Post-operative progress note oral airway in 09/14/24 11:[address] Anesthesia: Postop Eval II Evaluation Mental status: Awake and Calm Pain Level: 3 nausea: No Vomiting: No Complications Anesthesia Complication: No 09/14/24 1608 Date Nikhil Pineda MD Cosigner Signature: Date CC: Signed Normal [facility] Operative Reporton 5 Operative Report [facility] Medical Records Department [address] [place] [address] Operative Report 09/14/24 1135 MR#: [id number] Acct: [id number] Name: JASSONDINORA ASTORGA Rep #: [id number] : 1950 74 From: Guerrero Valdivia MD PCP: Dr. 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, stenosis, cord compression with myelopathy Post-Operative Diagnosis: Same Surgery/Procedure Performed: C3-5 ACDF living manager: Yes Floriculture Teacher: Leeanna Dennis Tasks completed by first aid instructor: Closing, Implanting device, Hemostasis: Electrocautery and Retracting [...] and Implanted device Implanted device details: Medtronic Whitefish Elite plate instrumentation Estimated Blood Loss: 30 cc Specimen collected: No Description of surgery: Preoperative diagnosis: C3-5 disc degeneration with stenosis, cord compression, myelopathy Postoperative diagnosis: Same Name of procedure: C3-5 anterior cervical discectomy and fusion with plate instrumentation - Anterior cervical fusion C3-4, CPT code 31098 - Anterior plate instrumentation C3-5, CPT code 32830/59 - Anterior cervical fusion C4-5, CPT code 33342/51 -C3-4 structural allograft bone with DBX, CPT code 02110 - C4-5 structural allograft bone with DBX, CPT code 31442 Attending surgeon: Guerrero Valdivia M.D. Anesthesia: Gen. endotracheal Estimated blood loss: 30 mL Complications: None Instrumentation used: Medtronic Whitefish Elite plate, LASR corticocancellous block Indications: The [...] Disc fragments were removed with the pituitary. [place] pins were placed in C3 and C4 [...] cancellous portion. (more content not included)... Normal [facility] MRSA screenOrdered By: Frankie Valdivia on 09-07-2024 MRSA DNA JU+probe Ql (Unsp spec) [facility] MRSA/SAID NASAL SCREENon MRSA+SAID SCRN Reason for Exam: PRE OP MRSA MRSA Negative S. AUREUS S. aureus Negative Normal [facility] Comment on above: Performed By: #### M 100.651 ####[facility] [address] [facility] [place], [address] Electrocardiogram reportOrde red By: Chente Whitmore on 09-05-2024 EKG study [facility] Cardiovascular Services [address] [place] [address] 12 Lead EKG 09/01/24957 MR#: [id number] Acct: [id number] Name: DINORA SPAULDING Rep #:[id number] : 1950 74 From: Chente Whitmore MD Attending Dr: Dr. Guerrero Valdivia MD Status: PRE [facility] Ordering Dr: Guerrero Valdivia MD Date: Location: [facility] Sex: F C Admitted: Test Reason : PREOP Blood Pressure : */* mmHG Vent. Rate : 77 BPM Atrial Rate : 77 BPM P-R Int : 188 ms QRS Dur : 72 ms QT Int : 408 ms P-R-T Axes : 54 64 59 degrees QTcB Int : 461 ms Normal sinus rhythm Normal ECG Confirmed by CHENTE WHITMORE MD ([id number]), primer expeditor and drier KENNETH VILLAGRAN ([id number]) on 09/05/2024 9:48:03 AM Referred By: Guerrero Valdivia Confirmed By: CHENTE WHITMORE MD 09/05/24 0948 Date _ Chente Whitmore MD CC: Dr. Guerrero Valdivia MD; Dr. Moose Dempsey MD ~ Signed [facility] Work Phone: HIV Viral Load Quanton 09-05 HIV-1 RNA, PCR < 20 Normal . [facility] Comment on above: Order Comment: Reaso n for Laboratory Test SURGERY Result Comment: HIV- 1 RNA not detected The reportable range for this assay is 20 to 10,000,000 copies HIV-1 RNA/mL. Performed By: #### L 100.0100, L500.2500, L3100.0300, L3890.4000, BTSPAT, L501.9985, L501.5200 ####[facility] [address] [place], [address] log10 HIV-1 RNA TNP Normal . [facility] Comment on above: Order Comment: Reaso n for Laboratory Test SURGERY Result Comment: Resu lt Units: fuv62jtsp/mL Unable to calculate result since non-numeric result obtained for component test. Performed at: [facility] [address] [id number] Electron Beam Welding Machine Operator: Ida Shaw MD, Phone: [phone] Performed By: #### L 100.0100, L500.2500, L3100.0300, L3890.4000, BTSPAT, L501.9985, L501.5200 ####[facility] [address] [place], [place], [address] MR/PATInocencia 09-05-2024 MR/PAT.ROLAN [facility] Medical Records Department [address] [place] [address] PAT - Anesthesia 09/05/24 1234 MR#: [id number] Acct: [id number] Name: DINORA SPAULDING Rep #: [id number] : 1950 74 From: Russell Julio MD PCP: Dr. Moose Dempsey MD Status:PRE [facility] Y Race: C Location: [facility] Pre-Assessment Diagnosis/Proposed Procedure Planned Operative Procedure(s): ANTEROIR CERVICAL DISC FUSION C3-4 AND C4-5 Anesthesia History Anesthesia History - lead teacher: Anesthesia History - lead teacher Hx Hospitalization No 08/31/24 10:11 Any Problems [...] take am of surgery PONV PONV - lead teacher: PONV - lead teacher Female Yes 08/31/24 10:11 HX of Motion [...] 07/28/24 13:21 Respiratory Assessment Respiratory Assessment - lead teacher: Respiratory Tract Infection Hx - lead teacher Hx Respiratory Tract Infection No 08/31/24 10:11 STOP Sleep Apnea STOP Sleep Apnea - lead teacher: STOP Sleep Apnea - lead teacher Hx Hypertension Yes: CONTROLLED WITH MEDS 08/31/24 [...] Tobacco Use History Tobacco Use History - lead teacher: Tobacco Use History - lead teacher Tobacco Use Smoking Status Never smoker 08/31/24 10:11 Hx Tobacco Use No 08/31/24 10:11 Years Smoking Packs Smoked per Day Smoking Cessation Date was within the last 15 years Hx Smoking Cessation Date Hx Smoking Cessation Counseling Hematologic Medial History Hematologic Hx - lead teacher: Hematologic Medical Hx - benefits specialist Hx of Blood Transfusion No 08/31/24 10:11 [...] confused, unrespo /Reproduction History /Reproductive History - lead teacher: /Reproductive Hx- lead teacher Hx Now Gestational Age (in weeks): EDC: Hx Hx Para Hx Section SAB [facility] Medical History Wears glasses Arthritis High cholesterol Gastric reflux Non-smoker History of pain when walking History of stress test Cataract Hyperlipidemia HTN (hypertension) Home Medications ???Medication ???Instructions ???Recorded ???Last Taken ???Type atenolol 25 mg tablet 25 mg PO DAILY 11/21/19 01/12/20 H istory glucosamine 500 mg-msm 100 mg-vit 1 cap PO DAILY 11/21/19 Unknown H istory C 20 sj-hubag-bnvk-primrose capsule hydrochlorothiazide 25 mg tablet 25 mg PO DAILY 11/21/19 Unknown Hi story lovastatin 20 mg tablet 20 mg PO QHS 11/21/19 Unknown Hist ory multivitamin (Multiple Vitamins 1 tab PO DAILY 11/21/19 Unknown Hi story tablet) omega 0-jil-cbt-fish oil 1,000 mg 1 cap PO DAILY 11/21/19 Unknown H istory (120 mg-180 mg) capsule (Fish Oil) turmeric root extract 500 mg 500 mg PO DAILY 11/21/19 Unknown H istory capsule omepr (more content not included)... Normal [facility] Hepatitis A AB, Totalon 07-0 HEPATITIS A,TOT Negative Normal Negative [facility] Comment on above: Result Comment: Comm ent: The HAV total antibody assay detects both IgG and IgM but does not differentiate between them. A negative result suggests susceptibility to infection. A positive result could be due to vaccination, previously resolved infection or active infection. Testing for HAV IgM should be performed if active HAV infection is suspected. [facility] offers profiles that will automatically reflex positive HAV total antibody results to IgM (e.g., panel #[id number] HAV Antibody w/ Rfx). Performed at: [address] [id number] Electron Beam Welding Machine Operator: Charles Souza PhD, Phone: [phone] Performed By: #### L 100.0100, L500.2500, L3100.0300, L3890.4000, BTSPAT, L501.0492, L501.5200 ####[facility] [address] [place], [place], [address] 12 Lead EKGon 09-01-2024 12 Lead EKG [facility] Cardiovascular Services [address] [place] [address] 12 Lead EKG 09/01/24 0958 MR#: [id number] Acct: [id number] Name: DINORA SPAULDING Rep #: [id number] : 1950 74 From: Chente Whitmore MD Attending Dr: Dr. Guerrero Valdivia MD Status: PRE [facility] Ordering Dr: Guerrero Valdivia MD Date: 09/01/24 Location: [facility] Sex: F C Admitted: Test Reason : PREOP Blood Pressure : */* mmHG Vent. Rate : 77 BPM Atrial Rate : 77 BPM P-R Int : 188 ms QRS Dur : 72 ms QT Int : 408 ms P-R-T Axes : 54 64 59 degrees QTcB Int : 461 ms Normal sinus rhythm Normal ECG Confirmed by CHENTE WHITMORE MD ([id number]), primer expeditor and drier KENNETH VILLAGRAN ([id number]) on 09/05/2024 9:48:03 AM Referred By: Guerrero Valdivia Confirmed By: CHENTE WHITMORE MD 09/05/24 0948 Date Chente Whitmore MD CC: Dr. Guerrero Valdivia MD; Dr. Moose Dempsey MD Signed Normal [facility] Basic Metabolic Profile (BMP )on 09-01-2024 BUN/CRE 19.7 RATIO Normal 10-20 [facility] Comment on above: Performed By: #### L 100.0100, L500.2500, L3100.0300, L3890.4000, BTSPAT, L501.9985, L501.5200 ####[facility] [address] [place], [address] Calcium [Mass/Vol] 9.5 mg/dL Normal 7.6-11.0 [facility] Comment on above: Performed By: #### L 100.0100, L500.2500, L3100.0300, L3890.4000, BTSPAT, L501.9985, L501.5200 ####[facility] [address] [place], [address] Chloride [Moles/Vol] 106 mmol/L Normal 98-108 [facility] Comment on above: Performed By: #### L 100.0100, L500.2500, L3100.0300, L3890.4000, BTSPAT, L501.9985, L501.5200 ####[facility] [address] [place], [address] CO2 [Moles/Vol] 23.4 mmol/L Normal 21.0-32.0 [facility] Comment on above: Performed By: #### L 100.0100, L500.2500, L3100.0300, L3890.4000, BTSPAT, L501.9985, L501.5200 ####[facility] [address] [place], [address] Creatinine [Mass/Vol] 0.92 mg/dL Normal 0.70-1.20 [facility] Comment on above: Performed By: #### L 100.0100, L500.2500, L3100.0300, L3890.4000, BTSPAT, L501.9985, L501.5200 ####[facility] [address] [place], [address] GAP 12 Normal 5-15 [facility] Comment on above: Performed By: #### L 100.0100, L500.2500, L3100.0300, L3890.4000, BTSPAT, L501.9985, L501.5200 ####[facility] [address] [place], [address] GFR/1.73 sq M.predicted among non-blacks MDRD (S/P/Bld) [Vol rate/Area] 65 mL/min/{1.73_m2} Normal >60 [facility] Comment on above: Result Comment: mL/m in/1.73m2 CKD-EPI Creatinine Equation (2020) Performed By: #### L 100.0100, L500.2500, L3100.0300, L3890.4000, BTSPAT, L501.9985, L501.5200 ####[facility] [address] [place], [address] Glucose [Mass/Vol] 114 mg/dL High 70-99 [facility] Comment on above: Performed By: #### L 100.0100, L500.2500, L3100.0300, L3890.4000, BTSPAT, L501.9985, L501.5200 ####[facility] [address] [place], [address] Potassium [Moles/Vol] 3.8 mmol/L Normal 3.3-5.1 [facility] Comment on above: Performed By: #### L 100.0100, L500.2500, L3100.0300, L3890.4000, BTSPAT, L501.9985, L501.5200 ####[facility] [address] [place], [address] Sodium [Moles/Vol] 141 mmol/L Normal 133-145 [facility] Comment on above: Performed By: #### L 100.0100, L500.2500, L3100.0300, L3890.4000, BTSPAT, L501.9985, L501.5200 ####[facility] [address] [place], [address] Urea nitrogen [Mass/Vol] 18 mg/dL Normal 4-19 [facility] Comment on above: Performed By: #### L 100.0100, L500.2500, L3100.0300, L3890.4000, BTSPAT, L501.9985, L501.5200 ####[facility] [address] [place], [address] CBC W/Diff, Automatedon 07-0 3-2024 Absolute Lymph 1.75 X10 3/uL Normal 0.83-4.51 [facility] Comment on above: Performed By: #### L 100.0100, L500.2500, L3100.0300, L3890.4000, BTSPAT, L501.9985, L501.5200 ####[facility] [address] [place], [address] Absolute Neut 3.7 X10 3/uL Normal 2.0-7.7 [facility] Comment on above: Performed By: #### L 100.0100, L500.2500, L3100.0300, L3890.4000, BTSPAT, L501.9985, L501.5200 ####[facility] [address] [place], [address] Basophils/100 WBC (Bld) 0.8 % Normal 0-1 [facility] Comment on above: Performed By: #### L 100.0100, L500.2500, L3100.0300, L3890.4000, BTSPAT, L501.9985, L501.5200 ####[facility] [address] [place], [address] Eosinophils/100 WBC (Bld) 0.8 % Normal 0-5 [facility] Comment on above: Performed By: #### L 100.0100, L500.2500, L3100.0300, L3890.4000, BTSPAT, L501.9985, L501.5200 ####[facility] [address] [place], [address] Erythrocyte distribution width (RBC) [Ratio] 13.4 % Normal 11.6-14.6 [facility] Comment on above: Performed By: #### L 100.0100, L500.2500, L3100.0300, L3890.4000, BTSPAT, L501.9985, L501.5200 ####[facility] [address] [place], [address] Hematocrit (Bld) [Volume fraction] 42.7 % Normal 37-47 [facility] Comment on above: Performed By: #### L 100.0100, L500.2500, L3100.0300, L3890.4000, BTSPAT, L501.9985, L501.5200 ####[facility] [address] [place], [address] Hemoglobin (Bld) [Mass/Vol] 14.9 g/dL Normal 12.0-15.0 [facility] Comment on above: Performed By: #### L 100.0100, L500.2500, L3100.0300, L3890.4000, BTSPAT, L501.9985, L501.5200 ####[facility] [address] [place], [address] IG% 0.300 Normal 0.0-0.9 [facility] Comment on above: Result Comment: IG% - Immature Granulocytes (promyelocytes, myelocytes and metamyelocytes) > 1% indicates that a LEFT SHIFT is Present. Performed By: #### L 100.0100, L500.2500, L3100.0300, L3890.4000, BTSPAT, L501.9985, L501.5200 ####[facility] [address] [place], [address] Lymphocytes/100 WBC (Bld) 29.0 % Normal 19-41 [facility] Comment on above: Performed By: #### L 100.0100, L500.2500, L3100.0300, L3890.4000, BTSPAT, L501.9985, L501.5200 ####[facility] [address] [place], [address] MCH (RBC) [Entitic mass] 29.3 pg Normal 27.0-32.0 [facility] Comment on above: Performed By: #### L 100.0100, L500.2500, L3100.0300, L3890.4000, BTSPAT, L501.9985, L501.5200 ####[facility] [address] [place], [address] MCHC (RBC) [Mass/Vol] 34.9 g/dL Normal 32-36 [facility] Comment on above: Performed By: #### L 100.0100, L500.2500, L3100.0300, L3890.4000, BTSPAT, L501.9985, L501.5200 ####[facility] [address] [place], [address] MCV (RBC) [Entitic vol] 84.1 fL Normal 81-99 [facility] Comment on above: Performed By: #### L 100.0100, L500.2500, L3100.0300, L3890.4000, BTSPAT, L501.9985, L501.5200 ####[facility] [address] [place], [address] Monocytes/100 WBC (Bld) 7.0 % Normal 0-10 [facility] Comment on above: Performed By: #### L 100.0100, L500.2500, L3100.0300, L3890.4000, BTSPAT, L501.9985, L501.5200 ####[facility] [address] [place], [address] Neutrophils/100 WBC (Bld) 62.1 % Normal 47-70 [facility] Comment on above: Performed By: #### L 100.0100, L500.2500, L3100.0300, L3890.4000, BTSPAT, L501.9985, L501.5200 ####[facility] [address] [place], [address] Nucleated RBC (Bld) [#/Vol] 0 10*3/uL Normal 0-5 [facility] Comment on above: Performed By: #### L 100.0100, L500.2500, L3100.0300, L3890.4000, BTSPAT, L501.9985, L501.5200 ####[facility] [address] [place], [address] Platelet mean volume (Bld) [Entitic vol] 9.9 fL Normal 6.2-12.0 [facility] Comment on above: Performed By: #### L 100.0100, L500.2500, L3100.0300, L3890.4000, BTSPAT, L501.9985, L501.5200 ####[facility] [address] [place], [address] Platelets (Bld) [#/Vol] 279 10*3/uL Normal 150-450 [facility] Comment on above: Performed By: #### L 100.0100, L500.2500, L3100.0300, L3890.4000, BTSPAT, L501.9985, L501.5200 ####[facility] [address] [place], [address] RBC (Bld) [#/Vol] 5.08 10*6/uL Normal 4.2-5.4 [facility] Comment on above: Performed By: #### L 100.0100, L500.2500, L3100.0300, L3890.4000, BTSPAT, L501.9985, L501.5200 ####[facility] [address] [place], [address] RDW SD 41.6 fl Normal 35.1-43.9 [facility] Comment on above: Performed By: #### L 100.0100, L500.2500, L3100.0300, L3890.4000, BTSPAT, L501.9985, L501.5200 ####[facility] [address] [place], [address] WBC (Bld) [#/Vol] 6.0 10*3/uL Normal 4.4-11.0 [facility] Comment on above: Performed By: #### L 100.0100, L500.2500, L3100.0300, L3890.4000, BTSPAT, L501.9985, L501.5200 ####[facility] [address] [place], [address] Hemoglobin A1con 09-01-2024 HbA1c (Bld) [Mass fraction] 6.2 % High <=5.6 [facility] Comment on above: Result Comment: Norm al < 5.7 % Prediabetic 5.7 - 6.4 % Diabetic >or= 6.5 % Please note range changes. Performed By: #### L 100.0100, L500.2500, L3100.0300, L3890.4000, BTSPAT, L501.9985, L501.5200 ####[facility] [address] [place], [address] Hemoglobin A1c percentageOrd ered By: Guerrero Valdivia on 09-01-2024 HbA1c (Bld) [Mass fraction] 6.2 % High <5.7 [facility] Comment on above: Normal < 5.7 % Predi abetic 5.7 - 6.4 % Diabetic >or= 6.5 % Please note range changes. Magnesiumon 09-01-2024 Magnesium [Mass/Vol] 2.1 mg/dL Normal 1.5-2.2 [facility] Comment on above: Performed By: #### L 100.0100, L500.2500, L3100.0300, L3890.4000, BTSPAT, L501.9985, L501.5200 ####[facility] [address] [place], [address] Magnesium measurement (mass/ volume)Ordered By: Guerrero Valdivia on 09-01-2024 Magnesium (Unsp spec) [Mass/Vol] 2.1 mg/dL 1.5-2.2 [facility] Orthopedic Visit Reporton Orthopedic Visit Report [facility] [address] [place] [address] [address] [place], [place] [address] OFFICE VISIT Date of Service: 09/01/24 MR#: [id number] Acct: [id number] Name: DINORA SPAULDING Rep #: [id number] : 1950 Provider: Dr. Guerrero Valdivia MD Age/Sex: 74/F Location: [facility] Status: Signed Intake Vital Signs 07/28/24 13:21 [...] PO DAILY 11/21/19 09/01/24 History C 20 na-rnrnh-fiwm-primrose capsule hydrochlorothiazide 25 mg tablet 25 mg PO DAILY 11/21/19 09/01/24 H istory lovastatin 20 mg tablet 20 mg PO QHS 11/21/19 09/01/24 His tory multivitamin (Multiple Vitamins 1 tab PO DAILY 11/21/19 09/01/24 H istory tablet) omega 9-wok-xda-fish oil 1,000 mg 1 cap PO DAILY [...] equal abhijeet (more content not included)... Normal [facility] Plasma HIV 1 RNA viral load by probe and target amplification method (log number/voluOrdered By: Guerrero Valdivia on 09-01-2024 HIV 1 RNA JU+probe [Log #/Vol] TNP [facility] Comment on above: Test not performedRe sult Units: kjg46tdqe/mLUnable to calculate result since non-numeric resultobtained for component test.Performed at: - [facility] [id number] Director: Ida Shaw MD, Phone: [phone] Type AND Screen - PAT ONLYon 09-01-2024 Ab SCREEN GEL Negative Normal [facility] Comment on above: Order Comment: Surge ry Date: 09/14/24Reason for Laboratory Test [id number] CERVICAL FUSION Performed By: #### L 100.0100, L500.2500, L3100.0300, L3890.4000, BTSPAT, L501.9985, L501.5200 ####[facility] [address] [place], [address] Cerv Spine 4 or 5 Viewson Cerv Spine 4 or 5 Views [facility] Imaging Services [address] [place], [place] [address] Cerv Spine 4 or 5 Views MR#: [id number] Acct: [id number] Name: HILL SPAULDINGKYUNG Rosado Rep #: [id number] : 1950 F 74 From: Erwin Lynn MD PCP: Dr. Moose Dempsey MD Status: DEP AMB Study: Cerv Spine 4 or 5 Views Date of Exam: 07/28/24 Exam# [id number] Ordering Dr: Hanny Zapata PROCEDURE: CERV SPINE 4 OR 5 VIEWS 07/28/2024 REASON FOR EXAM: CERVICAL PAIN, BALANCE ISSUES TECHNIQUE: 4 views of the cervical spine. COMPARISON: None. FINDINGS: No evidence of acute fracture or dislocation. No instability on flexion or extension views. Xdaylwqk-nv-kakidz discogenic degenerative changes of the mid/lower cervical spine. RAD/Cerv Spine 4 or 5 Views IMPRESSION: Spondylosis. Reading Location: [id number] CC: COMPLIANCE AUDITORKatie Zapata; Dr. Guerrero Valdivia MD; Dr. Moose Dempsey MD Cooler Room Worker: Signed Normal [facility] Orthopedic Visit Reporton Orthopedic Visit Report [facility] [address] [place] [address] [address] [place] [address] OFFICE VISIT Date of Service: 07/28/24 MR#: [id number] Acct: [id number] Name: DINORA SPAULDING Rep #: [id number] : 1950 Provider: Dr. Guerrero Valdivia MD Age/Sex: 74/F Location: [facility].JESSICA Status: Signed Intake Vital Signs 09/16/23 07:39 [...] PO DAILY 11/21/19 07/28/24 History C 20 zq-myxlu-izby-primrose capsule hydrochlorothiazide 25 mg tablet 25 mg PO DAILY 11/21/19 07/28/24 H istory lovastatin 20 mg tablet 20 mg PO QHS 11/21/19 07/28/24 His tory multivitamin (Multiple Vitamins 1 tab PO DAILY 11/21/19 07/28/24 H istory tablet) omega 5-vfl-fts-fish oil 1,000 mg 1 cap PO DAILY [...] - 5=normal (more content not included)... Normal [facility] Magnetic resonance imaging r eportOrdered By: Lacey Red on 07-24-2024 Study report [facility] Imaging Services [address] [place] [address] Spine Cervical (Routine) MR#: [id number] Acct: [id number] Name: DINORA SPAULDING Rep #: [id number] : 1950 F 74 From: Candido Red MD PCP: Dr. Moose Dempsey MD Status: REG CL I Study:Spine Cervical (Routine) Date of Exam: 07/22/24 Exam# [id number] Ordering Dr: Yue Valdivia MD PROCEDURE: SPINE [...] neural foraminal compromise as detailed. Reading Location: [place] [address] CC: Dr. Guerrero Valdivia MD; Dr. Moose Dempsey MD ~ Cooler Room Worker: Signed [facility] Spine Cervical (Routine)on 07-22-2024 Spine Cervical (Routine) [facility] Imaging Services [address] [place] [address] Spine Cervical (Routine) MR#: [id number] Acct: [id number] Name: DINORA SPAULDING Rep #: [id number] : 1950 F 74 From: Lacey roy MD PCP: Dr. Moose Dempsey MD Status: REG CLI Study: Spine Cervical (Routine) Date of Exam: Exam# [id number] Ordering Dr: Guerrero Valdivia MD PROCEDURE: SPINE [...] neural foraminal compromise as detailed. Reading Location: [place] [address] CC: Dr. Guerrero Valdivia MD; Dr. Moose Dempsey MD Cooler Room Worker: Signed Normal [facility] Orthopedic Visit Reporton Orthopedic Visit Report [facility] [address] [place] [address] [address] [place] [address] OFFICE VISIT Date of Service: 07/08/24 MR#: [id number] Acct: [id number] Name: DINORA SPAULDING Rep #: [id number] : 1950 Provider: Dr. Guerrero Valdivia MD Age/Sex: 74/F Location: [facility].JESSICA Status: Signed Intake Vital Signs 09/16/23 07:39 Height 5 ft 2 in Intake Visit Reasons: LUMBAR SPINE Chief Complaint: lumbar spine Allergies Penicillins Allergy (Verified 07/08/24 08:06) Hives Medications ???Medication ???Instructions ???Recorded ???Confirmed ???Type atenolol 25 mg tablet 25 mg PO DAILY 11/21/19 07/08/24 H istory glucosamine 500 mg-msm 100 mg-vit 1 cap PO DAILY 11/21/19 07/08/24 History C 20 yn-dhsih-ofry-primrose capsule hydrochlorothiazide 25 mg tablet 25 mg PO DAILY 11/21/19 07/08/24 H istory lovastatin 20 mg tablet 20 mg PO QHS 11/21/19 07/08/24 His tory multivitamin (Multiple Vitamins 1 tab PO DAILY 11/21/19 07/08/24 H istory tablet) omega 9-oyx-zuh-fish oil 1,000 mg 1 cap PO DAILY [...] and injections. (more content not included)... Normal [facility] Laboratory - Chemistry and C hemistry - challengeon 10-21-2023 Albumin [Mass/Vol] 4.4 g/dL Normal 3.6 - 5.1 g/dL [facility], [facility].; [employer] Albumin/Globulin [Mass ratio] 2.0 {ratio} Normal 1.0 - 2.5 [employer] [facility], [facility].; [employer] ALP [Catalytic activity/Vol] 92 U/L Normal 37 - 153 U/L [employer] [facility], [facility].; [employer] ALT [Catalytic activity/Vol] 26 U/L Normal 6 - 29 U/L [employer] [facility], [facility].; [employer] AST [Catalytic activity/Vol] 23 U/L Normal 10 - 35 U/L [facility], [facility].; [facility], [facility]. Bilirubin [Mass/Vol] 1.6 mg/dL Abnormal 0.2 - 1 .2 mg/dL [facility], [facility].; [facility], [employer] Calcium [Mass/Vol] 9.8 mg/dL Normal 8.6 - 10. 4 mg/dL [facility], [facility].; [facility], [facility]. Chloride [Moles/Vol] 104 mmol/L Normal 98 - 11 0 mmol/L [facility], [facility].; [facility], [employer] Cholesterol [Mass/Vol] 164 mg/dL Normal [facility], [facility].; [facility], [facility] Cholesterol in HDL [Mass/Vol] 54 mg/dL Normal [facility], [facility].; [facility], [employer] Cholesterol in LDL [Mass/Vol] 83 mg/dL Normal [facility], [facility].; [facility], [facility]. CO2 [Moles/Vol] 27 mmol/L Normal 20 - 32 mmol/L [facility], [facility].; [facility], [employer] Creatinine [Mass/Vol] 0.90 mg/dL Normal 0.60 - 1.00 mg/dL [facility], [facility].; [facility], [facility]. GFR/1.73 sq M.predicted among non-blacks MDRD (S/P/Bld) [Vol rate/Area] 67 mL/min/{1.73_m2} Normal [facility], [facility].; [employer] [facility], [employer] Glucose [Mass/Vol] 107 mg/dL Abnormal 65 - 99 mg/dL [facility], [facility].; [employer] [facility], [employer] Potassium [Moles/Vol] 4.1 mmol/L Normal 3.5 - 5.3 mmol/L [facility], [facility].; [facility], [employer] Protein [Mass/Vol] 6.6 g/dL Normal 6.1 - 8.1 g/dL [facility], [facility].; [employer] Sodium [Moles/Vol] 138 mmol/L Normal 135 - 146 mmol/L [facility], [facility].; [facility], [employer] Triglyceride [Mass/Vol] 171 mg/dL Abnormal H [facility].; [facility] Urea nitrogen [Mass/Vol] 23 mg/dL Normal 7 - 25 mg/dL [facility]; [facility] No Panel Informationon 10-20 BUN/CREATININE RATIO SEE NOTE: Normal 6 - 22 [facility].; [facility], [facility] CHOL/HDLC RATIO 3.0 Normal [facility]; [facility], [facility] GLOBULIN 2.2 Normal 1.9 - 3.7 [facility]; [employer] [facility], [facility] NON HDL CHOLESTEROL 110 Normal [facility]; [employer] [facility] Laboratory - Chemistry and C hemistry - challengeon 10-14-2022 Albumin [Mass/Vol] 4.5 g/dL Normal 3.6 - 5.1 g/dL [facility]; [employer], [facility]. Albumin/Globulin [Mass ratio] 2.0 {ratio} Normal 1.0 - 2.5 [facility]; [place] [employer] [facility]. ALP [Catalytic activity/Vol] 85 U/L Normal 37 - 153 U/L [facility].; [employer] [facility], [facility]. ALT [Catalytic activity/Vol] 23 U/L Normal 6 - 29 U/L [facility].; [employer], [facility]. AST [Catalytic activity/Vol] 25 U/L Normal 10 - 35 U/L [facility].; [employer] [facility], [facility]. Bilirubin [Mass/Vol] 1.5 mg/dL Abnormal 0.2 - 1 .2 mg/dL [facility].; [employer], [facility]. Calcium [Mass/Vol] 10.0 mg/dL Normal 8.6 - 10. 4 mg/dL [facility].; [employer], [facility]. Chloride [Moles/Vol] 105 mmol/L Normal 98 - 11 0 mmol/L [facility].; [employer], [facility]. Cholesterol [Mass/Vol] 162 mg/dL Normal [facility].; [employer] [facility], [facility] Cholesterol in HDL [Mass/Vol] 49 mg/dL Abnormal [facility]; [employer] [facility], [facility]. Cholesterol in LDL [Mass/Vol] 85 mg/dL Normal [facility], [facility].; [facility], [facility]. CO2 [Moles/Vol] 24 mmol/L Normal 20 - 32 mmol/L [facility], [facility].; [employer] [facility], [facility]. Creatinine [Mass/Vol] 0.91 mg/dL Normal 0.60 - 1.00 mg/dL [facility], [facility].; [facility], [facility]. GFR/1.73 sq M.predicted among non-blacks MDRD (S/P/Bld) [Vol rate/Area] 66 mL/min/{1.73_m2} Normal [facility], [facility].; [employer] [facility], [facility]. Glucose [Mass/Vol] 112 mg/dL Abnormal 65 - 99 mg/dL [facility], [facility].; [employer] [facility], [facility]. Potassium [Moles/Vol] 4.4 mmol/L Normal 3.5 - 5.3 mmol/L [facility].; [employer] [facility], [facility]. Protein [Mass/Vol] 6.8 g/dL Normal 6.1 - 8.1 g/dL [facility], [facility].; [employer] [facility], [facility]. Sodium [Moles/Vol] 140 mmol/L Normal 135 - 146 mmol/L [facility], [facility].; [place] [employer] [facility], [employer] Triglyceride [Mass/Vol] 185 mg/dL Abnormal [facility].; [employer] [facility], [facility]. Urea nitrogen [Mass/Vol] 18 mg/dL Normal 7 - 25 mg/dL [facility], [facility].; [employer] [facility], [facility]. No Panel Informationon 10-14 BUN/CREATININE RATIO SEE NOTE: Normal 6 - 22 [facility].; [employer] CHOL/HDLC RATIO 3.3 Normal [facility], [facility].; [employer] [facility], [facility]. GLOBULIN 2.3 Normal 1.9 - 3.7 [facility], [facility].; [employer] NON HDL CHOLESTEROL 113 Normal [facility], [facility].; [employer] [facility], [facility]. Laboratory - Chemistry and C hemistry - challengeon 07-19-2022 Albumin [Mass/Vol] 4.3 g/dL Normal 3.6 - 5.1 g/dL [facility], [facility].; [facility], [facility] Albumin/Globulin [Mass ratio] 1.8 {ratio} Normal 1.0 - 2.5 [facility].; [facility], [facility]. ALP [Catalytic activity/Vol] 89 U/L Normal 37 - 153 U/L [facility].; [facility], [facility]. ALT [Catalytic activity/Vol] 22 U/L Normal 6 - 29 U/L [facility].; [facility], [facility]. AST [Catalytic activity/Vol] 20 U/L Normal 10 - 35 U/L [facility].; [facility], [facility]. Bilirubin [Mass/Vol] 1.5 mg/dL Abnormal 0.2 - 1 .2 mg/dL [facility], [facility].; [facility], [facility] Calcium [Mass/Vol] 9.6 mg/dL Normal 8.6 - 10. 4 mg/dL [facility].; [facility], [facility]. Chloride [Moles/Vol] 104 mmol/L Normal 98 - 11 0 mmol/L [facility].; [facility], [facility]. Cholesterol [Mass/Vol] 167 mg/dL Normal [facility]; [facility], [facility] Cholesterol in HDL [Mass/Vol] 50 mg/dL Normal [facility], [facility].; [facility], [facility]. Cholesterol in LDL [Mass/Vol] 85 mg/dL Normal [facility], [facility].; [facility], [facility]. CO2 [Moles/Vol] 29 mmol/L Normal 20 - 32 mmol/L [facility].; [facility], [facility]. Creatinine [Mass/Vol] 0.90 mg/dL Normal 0.60 - 1.00 mg/dL [facility], [facility].; [facility], [facility]. GFR/1.73 sq M.predicted among non-blacks MDRD (S/P/Bld) [Vol rate/Area] 68 mL/min/{1.73_m2} Normal [facility], [facility].; [facility], [facility]. Glucose [Mass/Vol] 97 mg/dL Normal 65 - 99 mg/dL [facility].; [place] [employer] [facility]. Potassium [Moles/Vol] 4.0 mmol/L Normal 3.5 - 5.3 mmol/L [facility].; [place] [employer] [facility], [employer]. Protein [Mass/Vol] 6.7 g/dL Normal 6.1 - 8.1 g/dL [facility].; [employer] Sodium [Moles/Vol] 141 mmol/L Normal 135 - 146 mmol/L [facility].; [employer]. Triglyceride [Mass/Vol] 234 mg/dL Abnormal H [facility].; [place] [employer] [facility]. Urea nitrogen [Mass/Vol] 19 mg/dL Normal 7 - 25 mg/dL [facility].; [employer]. No Panel Informationon 09-17 BUN/CREATININE RATIO NOT APPLICABLE Normal 6 - 22 [facility].; [employer] CHOL/HDLC RATIO 3.3 Normal [facility].; [employer], [employer] GLOBULIN 2.4 Normal 1.9 - 3.7 [facility].; [employer]. NON HDL CHOLESTEROL 117 Normal [facility].; [employer] BUTCH BY IFA SCREENon 06-19-19 Nuclear Ab IF (S) [Titer] Negative Normal Negative [facility] Comment on above: Order Comment: Speci men Type: BLOOD SPECIMEN Ordering Facility: [facility] Address: [address] [place] [address] Result Comment: Anti -nuclear antibody test is used as an aid in diagnosis of systemic autoimmune diseases. Where positive and clinically warranted, follow-up using disease-specific testing is recommended. Low positive titers are not uncommon with advanced age, certain chronic infections, and malignancies among others. Test methodology: Indirect fluorescence immunoassay (IFA) using HEp-2 cells. Performed By: #### H BA1C, IFESC, ANAIFS, RF, XSSAB, 27806-5, 06022-9, B1WB, ANCA #### [facility] CLIA [id number] [address] [place] [address] [place] ANTI NEUTRO CYTO ABon 2021 INTERPRETATION (ANCA) Test not performed on samples negative by immunofluorecense. Normal [facility] Comment on above: Order Comment: Speci men Type: BLOOD SPECIMEN Ordering Facility: [facility] Address: [address] [place] [address] Performed By: #### H BA1C, IFESC, ANAIFS, RF, XSSAB, 86579-5, 00600-1, B1WB, ANCA #### [facility] CLIA [id number] [address] [place] [address] [place] Neutrophil cytoplasmic Ab.classic IF Ql (S) Negative Normal Negative [facility] Comment on above: Order Comment: Speci men Type: BLOOD SPECIMEN Ordering Facility: [facility] Address: [address] [place] [address] Performed By: #### H BA1C, IFESC, ANAIFS, RF, XSSAB, 83577-8, 09251-2, B1WB, ANCA #### [facility] CLIA [id number] [address] [place] [address] [place] Neutrophil cytoplasmic Ab.perinuclear IF Ql (S) Negative Normal Negative [facility] Comment on above: Order Comment: Speci men Type: BLOOD SPECIMEN Ordering Facility: [facility] Address: [address] [place] [address] Performed By: #### H BA1C, IFESC, ANAIFS, RF, XSSAB, 02901-2, 79138-1, B1WB, ANCA #### [facility] CLIA [id number] [address] [place] [address] [place] STAFF REVIEW (ANCA) No review performed. Normal [facility] Comment on above: Order Comment: Speci men Type: BLOOD SPECIMEN Ordering Facility: [facility] Address: [address] [place] [address] Result Comment: Staf f review not performed on samples negative by immunofluorescences. Performed By: #### H BA1C, IFESC, ANAIFS, RF, XSSAB, 24377-3, 78209-2, B1WB, ANCA #### [facility] CLIA [id number] [address] [place] [address] [place] Folate SerPl-mCncon 06-19-19 22 Folate [Mass/Vol] ng/mL Normal >4.7 [facility] Comment on above: Order Comment: Sheyla pace Type: BLOOD SPECIMEN Ordering Facility: [facility] Address: [address] [place] [address] Result Comment: A re sult of > 20 ng/mL is not necessarily indicative of a pathologic or treatable condition: it reflects a limitation of the test methodology. Assay reference range: 4.8 to 24.2 ng/mL. Suitable for detection of folate deficiency. Reference: Folate III (Folate III) [package insert V 1.0 Egyptian]. [facility], [place], [place]: December 2014. Performed By: #### 2 284-8 #### [facility] CLIA [id number] [address] [place] [address] [place] #### VITB6 #### [facility] CLIA [id number] [address] [place] [address] HCV Ab Ser Qlon 06-18-2021 HCV Ab Ql (S) Negative Normal Negative [facility] Comment on above: Order Comment: Sheyla pace Type: BLOOD SPECIMEN Ordering Facility: [facility] Address: [address] [place] [address] Result Comment: The result suggests no evidence of active infection with Hepatitis C virus. Should recent infection be suspected, repeat testing may be considered 4-6 weeks after this draw. Performed By: #### H BA1C, IFESC, ANAIFS, RF, XSSAB, 84349-7, 43501-1, B1WB, ANCA #### [facility] CLIA [id number] [address] [place] [address] [place] HGB A1Con 06-18-2021 Average glucose Estimated from glycated hemoglobin (Bld) [Mass/Vol] 120 mg/dL Normal [facility] Comment on above: Order Comment: Sheyla pace Type: BLOOD SPECIMEN Ordering Facility: [facility] Address: [address] [place] [address] Result Comment: eAG: (Estimated average glucose) is a calculated value from HgbA1c and is claims service representative of the average blood glucose level in the last 2-3 month period. Performed By: #### H BA1C, IFESC, ANAIFS, RF, XSSAB, 39750-8, 70538-0, B1WB, ANCA #### [facility] CLIA [id number] [address] [place] [address] [place] HbA1c (Bld) [Mass fraction] 5.8 % High 4.3-5.6 [facility] Comment on above: Order Comment: Sheyla pace Type: BLOOD SPECIMEN Ordering Facility: [facility] Address: [address] [place] [address] Result Comment: [place] Diabetes Association guidelines indicate that patients with HgbA1c in the range 5.7-6.4% are at increased risk for development of diabetes, and intervention by lifestyle modification may be beneficial. HgbA1c greater or equal to 6.5% is considered diagnostic of diabetes. Performed By: #### H BA1C, IFESC, ANAIFS, RF, XSSAB, 58668-3, 37769-4, B1WB, ANCA #### [facility] CLIA [id number] [address] [place] [address] [place] IMMUNOFIXATION SCREEN, SERUM on 06-18-2021 MPA RESULT No M protein is identified. Normal No M protein is identified. [facility] Comment on above: Order Comment: Sheyla pace Type: BLOOD SPECIMEN Ordering Facility: [facility] Address: [address] [place] [address] Performed By: #### H BA1C, IFESC, ANAIFS, RF, XSSAB, 61115-7, 63029-2, B1WB, ANCA #### [facility] CLIA [id number] [address] [place] [address] [place] STAFF REVIEW (MPA) Reviewed by Jacob Sage M.D. [facility] Comment on above: Order Comment: Speci men Type: BLOOD SPECIMEN Ordering Facility: [facility] Address: [address] [place] [address] Performed By: #### H BA1C, IFESC, ANAIFS, RF, XSSAB, 25532-8, 47426-5, B1WB, ANCA #### [facility] CLIA [id number] [address] [place] [address] [place] Methylmalonate SerPl-sCncon 06-18-2021 Methylmalonate [Moles/Vol] 157 nmol/L Normal 79-376 [facility] Comment on above: Order Comment: Speci [facility] Type: BLOOD SPECIMEN Ordering Facility: [facility] Address: [address] [place] [address] Result Comment: This test was developed and its performance characteristics determined by [facility]'s Sergio JMagalis [facility] [place] ([facility]). It has not been cleared or approved by the FDA. [facility] is regulated under CLIA as qualified to perform high-complexity testing. This test is used for clinical purposes. It should not be regarded as investigational or for research. Performed By: #### H BA1C, IFESC, ANAIFS, RF, XSSAB, 93194-3, 33622-3, B1WB, ANCA #### [facility] CLIA [id number] [address] [place], [place] [id number] [place] RHEUMATOID FACTOR BLon 06-18 Rheumatoid factor Qn [IU]/mL Normal <16 [facility] [facility] Comment on above: Order Comment: Speci men Type: BLOOD SPECIMEN Ordering Facility: [facility] Address: [address] [place] [address] Performed By: #### H BA1C, IFESC, ANAIFS, RF, XSSAB, 42305-2, 05184-1, B1WB, ANCA #### [facility] CLIA [id number] [address] [place] [address] [place] SJOGREN ABS SSA/SSBon 2021 ANTI-SSB QUAL Negative Normal Negative [facility] Comment on above: Order Comment: Speci men Type: BLOOD SPECIMEN Ordering Facility: [facility] Address: [address] [place] [address] Result Comment: Anti -SSB (anti-La) antibody is used as an aid in diagnosis of a variety of systemic autoimmune diseases, especially for Sjogren's syndrome and systemic lupus erythematosus. Clinical correlation is required. Test Methodology: Multiplex flow immunoassay. Performed By: #### H BA1C, IFESC, ANAIFS, RF, XSSAB, 69235-6, 79177-5, B1WB, ANCA #### [facility] CLIA [id number] [address] [place] [address] [place] Sjogrens syndrome-A extractable nuclear Ab Qn (S) <0.2 Normal <1.0 [facility] Comment on above: Order Comment: Speci sanjeev Type: BLOOD SPECIMEN Ordering Facility: [facility] Address: [address] [place] [address] Performed By: #### H BA1C, IFESC, ANAIFS, RF, XSSAB, 27860-3, 42414-5, B1WB, ANCA #### [facility] CLIA [id number] [address] [place] [address] [place] Sjogrens syndrome-B extractable nuclear Ab Qn (S) <0.2 Normal <1.0 [facility] Comment on above: Order Comment: Nereydai sanjeev Type: BLOOD SPECIMEN Ordering Facility: [facility] Address: [address] [place] [address] Performed By: #### H BA1C, IFESC, ANAIFS, RF, XSSAB, 95044-6, 22282-3, B1WB, ANCA #### [facility] CLIA [id number] [address] [place] [address] [place] SSA ANTIBODY QUAL Negative Normal Negative [facility] Comment on above: Order Comment: Sheyla pace Type: BLOOD SPECIMEN Ordering Facility: [facility] Address: [address] [place] [address] Result Comment: Anti -SSA (anti-Ro) antibody is used as an aid in diagnosis of a variety of systemic autoimmune diseases, Sjogren's syndrome among others. Clinical correlation is required. Test Methodology: Multiplex flow immunoassay. ??? Performed By: #### H BA1C, IFESC, ANAIFS, RF, XSSAB, 35875-3, 82452-0, B1WB, ANCA #### [facility] CLIA [id number] [address] [place] [address] [place] VITAMIN B1 (THIAMINE), WHOLE BLOODon 06-18-2021 Thiamine (Bld) [Moles/Vol] 234.1 nmol/L High 84.3-213.3 [facility] Comment on above: Order Comment: Sheyla pace Type: BLOOD SPECIMEN Ordering Facility: [facility] Address: [address] [place] [address] Result Comment: This assay measures the concentration of thiamine diphosphate (TDP), the primary active form of vitamin B1. Approximately 90 percent of vitamin B1 present in whole blood is TDP. Thiamine and thiamine monophosphate, which comprise the remaining 10 percent, are not measured. This test was developed and its performance characteristics determined by [facility]'s [facility] [place] ([facility]). It has not been cleared or approved by the FDA. [facility] is regulated under CLIA as qualified to perform high-complexity testing. This test is used for clinical purposes. It should not be regarded as investigational or for research. Performed By: #### H BA1C, IFESC, ANAIFS, RF, XSSAB, 00704-6, 00217-1, B1WB, ANCA #### [facility] CLIA [id number] [address] [place] [address] [place] VITAMIN B6/PYRIDOXINon 06-18 VITAMIN B6 144.0 nmol/L High 20.0-125.0 [facility] Comment on above: Order Comment: Speci men Type: BLOOD SPECIMEN Ordering Facility: [facility] Address: [address] [place] [id number] Result Comment: INTE RPRETIVE INFORMATION: Vitamin B6 (Pyridoxal 5-Phosphate) Pyridoxal 5'-phosphate measured in a specimen collected following an 8-hour or overnight fast accurately indicates vitamin B6 nutritional status. Non-fasting specimen concentration reflects recent vitamin intake. This test was developed and its performance characteristics determined by [facility]. It has not been cleared or approved by the [place] Food and Drug Administration. This test was performed in a CLIA certified laboratory and is intended for clinical purposes. Performed By: [facility] [address] [place] [id number] Tour Escort: Awilda Lay MD Performed By: #### H BA1C, IFESC, ANAIFS, RF, XSSAB, 98074-4, 37063-7, B1WB, ANCA #### [facility] CLIA [id number] [address] [place] [address] [place] Laboratory - Chemistry and C hemistry - challengeon 09-11-2020 Albumin [Mass/Vol] 4.5 g/dL Normal 3.6 - 5.1 g/dL [facility] [employer] Albumin/Globulin [Mass ratio] 2.0 {ratio} Normal 1.0 - 2.5 [employer] ALP [Catalytic activity/Vol] 83 U/L Normal 37 - 153 U/L [employer] ALT [Catalytic activity/Vol] 24 U/L Normal 6 - 29 U/L [employer] AST [Catalytic activity/Vol] 22 U/L Normal 10 - 35 U/L [employer] Bilirubin [Mass/Vol] 1.3 mg/dL Abnormal 0.2 - 1 .2 mg/dL [employer] Calcium [Mass/Vol] 9.9 mg/dL Normal 8.6 - 10. 4 mg/dL [facility], [facility].; [facility], [facility]. Chloride [Moles/Vol] 104 mmol/L Normal 98 - 11 0 mmol/L [facility], [facility].; [facility], [facility] Cholesterol [Mass/Vol] 166 mg/dL Normal [facility], [facility].; [facility], Inc Cholesterol in HDL [Mass/Vol] 58 mg/dL Normal [facility], [facility].; [facility], [facility] Cholesterol in LDL [Mass/Vol] 82 mg/dL Normal [facility], [facility].; [facility], [facility]. CO2 [Moles/Vol] 26 mmol/L Normal 20 - 32 mmol/L [facility], [facility].; [facility], [employer] Creatinine [Mass/Vol] 1.00 mg/dL Abnormal 0.60 - 0.93 mg/dL [facility], [facility].; [facility], [facility]. GFR/1.73 sq M.predicted among blacks MDRD (S/P/Bld) [Vol rate/Area] 65 mL/min/{1.73_m2} Normal [facility], [facility].; [facility], [facility] Glucose [Mass/Vol] 99 mg/dL Normal 65 - 99 mg/dL [facility], [facility].; [facility], [facility] Potassium [Moles/Vol] 4.3 mmol/L Normal 3.5 - 5.3 mmol/L [facility], [facility].; [facility], [employer] Protein [Mass/Vol] 6.8 g/dL Normal 6.1 - 8.1 g/dL [facility], [facility].; [employer] [facility] Sodium [Moles/Vol] 138 mmol/L Normal 135 - 146 mmol/L [facility], [facility].; [facility], [facility] Triglyceride [Mass/Vol] 154 mg/dL Abnormal H [facility], [facility].; [facility], [employer] Urea nitrogen [Mass/Vol] 19 mg/dL Normal 7 - 25 mg/dL [facility], [facility].; [facility], [facility] Urea nitrogen/Creatinine [Mass ratio] 19 mg/mg Normal 6 - 22 [facility]; [facility] No Panel Informationon 09-11 CHOL/HDLC RATIO 2.9 Normal [facility]; [facility] eGFR NON-AFR. INDONESIAN 56 Abnormal [facility]; [facility], [facility] GLOBULIN 2.3 Normal 1.9 - 3.7 [facility]; [facility], [facility] NON HDL CHOLESTEROL 108 Normal [facility]; [facility], [facility] Laboratory - Chemistry and C hemistry - challengeon 03-22-2019 Albumin [Mass/Vol] 4.5 g/dL Normal 3.6 - 5.1 g/dL [facility]; [facility], [facility] Albumin/Globulin [Mass ratio] 2.1 {ratio} Normal 1.0 - 2.5 [facility]; [facility], [facility] ALP [Catalytic activity/Vol] 96 U/L Normal 33 - 130 U/L [facility]; [facility], [facility]. ALT [Catalytic activity/Vol] 28 U/L Normal 6 - 29 U/L [facility]; [facility], [facility]. AST [Catalytic activity/Vol] 22 U/L Normal 10 - 35 U/L [facility]; [place] [employer] [facility], [facility]. Bilirubin [Mass/Vol] 1.7 mg/dL Abnormal 0.2 - 1 .2 mg/dL [facility]; [facility], [facility] Calcium [Mass/Vol] 9.7 mg/dL Normal 8.6 - 10. 4 mg/dL [facility]; [facility], [facility] Chloride [Moles/Vol] 103 mmol/L Normal 98 - 11 0 mmol/L [facility]; [facility], [facility] Cholesterol [Mass/Vol] 162 mg/dL Normal [facility]; [facility], [facility] Cholesterol in HDL [Mass/Vol] 59 mg/dL Normal [facility]; [facility], [facility] Cholesterol in LDL [Mass/Vol] 82 mg/dL Normal [facility]; [facility], [facility]. CO2 [Moles/Vol] 33 mmol/L Abnormal 20 - 32 mmol/L [facility].; [facility], [facility] Creatinine [Mass/Vol] 0.89 mg/dL Normal 0.60 - 0.93 mg/dL [facility].; [facility], [facility] GFR/1.73 sq M.predicted among blacks MDRD (S/P/Bld) [Vol rate/Area] 76 mL/min/{1.73_m2} Normal [facility].; [place] [employer] [facility], [facility] Glucose [Mass/Vol] 99 mg/dL Normal 65 - 99 mg/dL [facility].; [facility], [facility]. Potassium [Moles/Vol] 3.9 mmol/L Normal 3.5 - 5.3 mmol/L [facility]; [facility], [facility] Protein [Mass/Vol] 6.6 g/dL Normal 6.1 - 8.1 g/dL [facility].; [place] [employer] [facility], [facility] Sodium [Moles/Vol] 141 mmol/L Normal 135 - 146 mmol/L [facility].; [place] [employer] [facility], [facility]. Triglyceride [Mass/Vol] 116 mg/dL Normal [facility].; [place] [employer] [facility] Urea nitrogen [Mass/Vol] 20 mg/dL Normal 7 - 25 mg/dL [facility].; [employer], [facility] No Panel Informationon 03-22 BUN/CREATININE RATIO NOT APPLICABLE Normal 6 - 22 [facility].; [place] [employer] [facility] CHOL/HDLC RATIO 2.7 Normal [facility]; [employer], [facility] eGFR NON-AFR. INDONESIAN 65 Normal [facility]; [facility], [facility]. GLOBULIN 2.1 Normal 1.9 - 3.7 [facility].; [place] [employer] [facility], [facility]. NON HDL CHOLESTEROL 103 Normal [facility].; [employer], [facility] Laboratory - Chemistry and C hemistry - challengeon 02-19-2018 Albumin [Mass/Vol] 4.6 g/dL Normal 3.6 - 5.1 g/dL [facility].; [facility], [facility]. Albumin/Globulin [Mass ratio] 1.9 {ratio} Normal 1.0 - 2.5 [facility].; [facility], [facility]. ALP [Catalytic activity/Vol] 98 U/L Normal 33 - 130 U/L [facility].; [facility], [facility]. ALT [Catalytic activity/Vol] 29 U/L Normal 6 - 29 U/L [facility].; [facility], [facility]. AST [Catalytic activity/Vol] 23 U/L Normal 10 - 35 U/L [facility].; [facility], [facility]. Bilirubin [Mass/Vol] 1.8 mg/dL Abnormal 0.2 - 1 .2 mg/dL [facility].; [facility], [facility]. Calcium [Mass/Vol] 9.9 mg/dL Normal 8.6 - 10. 4 mg/dL [facility].; [facility], [facility]. Chloride [Moles/Vol] 103 mmol/L Normal 98 - 11 0 mmol/L [facility].; [facility], [facility]. Cholesterol [Mass/Vol] 180 mg/dL Normal [facility]; [facility], [facility]. Cholesterol in HDL [Mass/Vol] 53 mg/dL Normal [facility].; [facility], [facility]. Cholesterol in LDL [Mass/Vol] 102 mg/dL Abnormal 0 - 100 mg/dL [facility].; [facility], [facility]. Cholesterol non HDL [Mass/Vol] 127 mg/dL Normal [facility].; [facility], [facility]. Cholesterol.total/Mari sterol in HDL [Mass ratio] 3.4 {ratio} Normal [facility].; [facility], [facility]. CO2 [Moles/Vol] 30 mmol/L Normal 20 - 32 mmol/L [facility], [facility].; [place] [employer] [facility], [facility]. Creatinine [Mass/Vol] 0.90 mg/dL Normal 0.50 - 0.99 mg/dL [facility].; [facility], [facility]. GFR/1.73 sq M.predicted among blacks MDRD (S/P/Bld) [Vol rate/Area] 76 {ML/MIN/1.73M2} Normal [facility], [facility].; [facility], [facility]. GFR/1.73 sq M.predicted MDRD (S/P/Bld) [Vol rate/Area] 65 {ML/MIN/1.73M2} Normal [facility], [facility].; [facility], [facility] Globulin (S) [Mass/Vol] 2.5 g/dL Normal 1.9 - 3.7 g/dL [facility], [facility].; [facility], [facility]. Glucose [Mass/Vol] 108 mg/dL Abnormal 65 - 99 mg/dL [facility], [facility].; [facility], [facility]. Potassium [Moles/Vol] 4.0 mmol/L Normal 3.5 - 5.3 mmol/L [facility], [facility].; [facility], [facility]. Protein [Mass/Vol] 7.1 g/dL Normal 6.1 - 8.1 g/dL [facility], [facility].; [facility], [facility]. Sodium [Moles/Vol] 140 mmol/L Normal 135 - 146 mmol/L [facility], [facility].; [facility], [facility]. Triglyceride [Mass/Vol] 151 mg/dL Abnormal H [facility].; [facility], [facility]. Urea nitrogen [Mass/Vol] 20 mg/dL Normal 7 - 25 mg/dL [facility], [facility].; [place] [employer] [facility], [facility]. Urea nitrogen/Creatinine [Mass ratio] 22.3 mg/mg Abnormal 6 - 22 [facility].; [place] [employer] [facility], [facility]. Laboratory - Chemistry and C hemistry - challengeon 01-09-2017 Albumin [Mass/Vol] 4.5 g/dL Normal 3.6 - 5.1 g/dL [facility], [facility].; [place] [employer] [facility], [facility]. Albumin/Globulin [Mass ratio] 2.0 {ratio} Normal 1.0 - 2.5 [facility], [facility].; [place] [employer], [facility]. ALP [Catalytic activity/Vol] 91 U/L Normal 33 - 130 U/L [facility].; [place] [employer] [facility], [facility]. ALT [Catalytic activity/Vol] 27 U/L Normal 6 - 29 U/L [facility].; [facility], [facility]. AST [Catalytic activity/Vol] 23 U/L Normal 10 - 35 U/L [facility].; [facility], [facility]. Bilirubin [Mass/Vol] 1.5 mg/dL Abnormal 0.2 - 1 .2 mg/dL [facility].; [facility], [facility] Calcium [Mass/Vol] 9.9 mg/dL Normal 8.6 - 10. 4 mg/dL [facility].; [facility], [facility] Chloride [Moles/Vol] 104 mmol/L Normal 98 - 11 0 mmol/L [facility].; [facility], [facility]. Cholesterol [Mass/Vol] 181 mg/dL Normal [facility]; [facility], [facility] Cholesterol in HDL [Mass/Vol] 54 mg/dL Normal [facility], [facility].; [facility], [facility]. Cholesterol in LDL [Mass/Vol] 105 mg/dL Abnormal 0 - 100 mg/dL [facility].; [facility], [facility] Cholesterol non HDL [Mass/Vol] 128 mg/dL Normal [facility].; [facility], [facility] Cholesterol.total/Mari sterol in HDL [Mass ratio] 3.4 {ratio} Normal [facility].; [place] [employer] [facility], [facility] CO2 [Moles/Vol] 29 mmol/L Normal 20 - 31 mmol/L [facility].; [facility], [facility]. Creatinine [Mass/Vol] 0.91 mg/dL Normal 0.50 - 0.99 mg/dL [facility], [facility].; [facility], [facility]. GFR/1.73 sq M.predicted among blacks MDRD (S/P/Bld) [Vol rate/Area] 75 {ML/MIN/1.73M2} Normal [facility], [facility].; [facility], [facility]. GFR/1.73 sq M.predicted MDRD (S/P/Bld) [Vol rate/Area] 65 {ML/MIN/1.73M2} Normal [facility], [facility].; [facility] Globulin (S) [Mass/Vol] 2.2 g/dL Normal 1.9 - 3.7 g/dL [facility], [facility].; [facility], [facility]. Glucose [Mass/Vol] 102 mg/dL Abnormal 65 - 99 mg/dL [facility], [facility].; [facility], [facility]. Potassium [Moles/Vol] 4.1 mmol/L Normal 3.5 - 5.3 mmol/L [facility].; [facility], [facility] Protein [Mass/Vol] 6.7 g/dL Normal 6.1 - 8.1 g/dL [facility], [facility].; [facility], [facility] Sodium [Moles/Vol] 140 mmol/L Normal 135 - 146 mmol/L [facility].; [facility], [facility] Triglyceride [Mass/Vol] 120 mg/dL Normal H [facility].; [facility], [facility] Urea nitrogen [Mass/Vol] 22 mg/dL Normal 7 - 25 mg/dL [facility].; [facility], [facility] Urea nitrogen/Creatinine [Mass ratio] 24.4 mg/mg Abnormal 6 - 22 [facility].; [facility], [facility]. Laboratory - Chemistry and C hemistry - challengeon 01-08-2016 Albumin [Mass/Vol] 4.3 g/dL Normal 3.6 - 5.1 g/dL [facility], [facility].; [place] [employer] [facility], [facility]. Albumin/Globulin [Mass ratio] 1.6 {ratio} Normal 1.0 - 2.5 [facility].; [facility], [facility]. ALP [Catalytic activity/Vol] 92 U/L Normal 33 - 130 U/L [facility].; [facility], [facility] [facility]. ALT [Catalytic activity/Vol] 27 U/L Normal 6 - 29 U/L [facility].; [facility], [facility]. AST [Catalytic activity/Vol] 22 U/L Normal 10 - 35 U/L [facility], [facility].; [place] [employer] [facility], [facility]. Bilirubin [Mass/Vol] 1.7 mg/dL Abnormal 0.2 - 1 .2 mg/dL [facility].; [facility] Calcium [Mass/Vol] 9.5 mg/dL Normal 8.6 - 10. 4 mg/dL [facility], [facility].; [place] [employer] [facility], [facility]. Chloride [Moles/Vol] 103 mmol/L Normal 98 - 11 0 mmol/L [facility], [facility].; [place] [employer] [facility], [facility]. Cholesterol [Mass/Vol] 163 mg/dL Normal 125 - 200 mg/dL [facility], [facility].; [facility], [facility]. Cholesterol in HDL [Mass/Vol] 52 mg/dL Normal [facility], [facility].; [place] [employer] [facility], [facility]. Cholesterol in LDL [Mass/Vol] 91 mg/dL Normal [facility].; [place] [employer] [facility], [employer]. Cholesterol non HDL [Mass/Vol] 111 mg/dL Normal [facility], [facility].; [place] [employer] [facility], [facility]. Cholesterol.total/Mari sterol in HDL [Mass ratio] 3.1 {ratio} Normal [facility], [facility].; [place] [employer], [employer]. CO2 [Moles/Vol] 27 mmol/L Normal 20 - 31 mmol/L [facility].; [place] [employer], [facility]. Creatinine [Mass/Vol] 0.96 mg/dL Normal 0.50 - 0.99 mg/dL [facility], [facility].; [place] [employer] [facility], [facility]. GFR/1.73 sq M.predicted among blacks MDRD (S/P/Bld) [Vol rate/Area] 71 {ML/MIN/1.73M2} Normal [facility], [facility].; [place] [employer] [facility], [facility]. GFR/1.73 sq M.predicted MDRD (S/P/Bld) [Vol rate/Area] 61 {ML/MIN/1.73M2} Normal [place] [employer] [facility], [facility].; [employer], [employer]. Globulin (S) [Mass/Vol] 2.6 g/dL Normal 1.9 - 3.7 g/dL [facility], [facility].; [place] [employer] Glucose [Mass/Vol] 98 mg/dL Normal 65 - 99 mg/dL [facility], [facility].; [place] [employer] Potassium [Moles/Vol] 4.4 mmol/L Normal 3.5 - 5.3 mmol/L [facility].; [facility]. Protein [Mass/Vol] 6.9 g/dL Normal 6.1 - 8.1 g/dL [facility].; [facility], [facility]. Sodium [Moles/Vol] 138 mmol/L Normal 135 - 146 mmol/L [facility], [facility].; [facility], [facility]. Triglyceride [Mass/Vol] 98 mg/dL Normal H [facility].; [facility], [facility]. Urea nitrogen [Mass/Vol] 21 mg/dL Normal 7 - 25 mg/dL [facility].; [facility], [facility] Urea nitrogen/Creatinine [Mass ratio] 22.2 mg/mg Abnormal 6 - 22 [facility].; [facility], [facility] Laboratory - Chemistry and C hemistry - challengeon 01-02-2015 Albumin [Mass/Vol] 4.4 g/dL Normal 3.6 - 5.1 g/dL [facility], [facility].; [facility], [facility]. Albumin/Globulin [Mass ratio] 2.0 {ratio} Normal 1.0 - 2.5 [facility].; [facility], [facility]. ALP [Catalytic activity/Vol] 92 U/L Normal 33 - 130 U/L [facility].; [facility], [facility]. ALT [Catalytic activity/Vol] 23 U/L Normal 6 - 29 U/L [facility], [facility].; [facility], [facility]. AST [Catalytic activity/Vol] 24 U/L Normal 10 - 35 U/L [facility].; [facility], [facility]. Bilirubin [Mass/Vol] 1.4 mg/dL Abnormal 0.2 - 1 .2 mg/dL [facility], [facility].; [facility], [facility]. Calcium [Mass/Vol] 9.6 mg/dL Normal 8.6 - 10. 4 mg/dL [facility], [facility].; [facility], [facility]. Chloride [Moles/Vol] 105 mmol/L Normal 98 - 11 0 mmol/L [facility], [facility].; [facility], [facility]. Cholesterol [Mass/Vol] 178 mg/dL Normal 125 - 200 mg/dL [facility].; [facility], [facility]. Cholesterol in HDL [Mass/Vol] 56 mg/dL Normal [facility].; [facility]. Cholesterol in LDL [Mass/Vol] 98 mg/dL Normal [facility], [facility].; [facility], [facility] Cholesterol non HDL [Mass/Vol] 122 mg/dL Normal [facility], [facility].; [facility], [facility]. Cholesterol.total/Mari sterol in HDL [Mass ratio] 3.2 {ratio} Normal [facility].; [facility], [facility] CO2 [Moles/Vol] 27 mmol/L Normal 19 - 30 mmol/L [facility].; [facility], [facility]. Creatinine [Mass/Vol] 0.92 mg/dL Normal 0.50 - 0.99 mg/dL [facility], [facility].; [facility], [facility]. GFR/1.73 sq M.predicted among blacks MDRD (S/P/Bld) [Vol rate/Area] 75 {ML/MIN/1.73M2} Normal [facility], [facility].; [facility], [facility]. GFR/1.73 sq M.predicted MDRD (S/P/Bld) [Vol rate/Area] 65 {ML/MIN/1.73M2} Normal [facility], [facility].; [facility], [facility]. Globulin (S) [Mass/Vol] 2.2 g/dL Normal 1.9 - 3.7 g/dL [facility], [facility].; [facility], [facility]. Glucose [Mass/Vol] 98 mg/dL Normal 65 - 99 mg/dL [facility], [facility].; [place] [employer] [facility], [facility]. Potassium [Moles/Vol] 4.1 mmol/L Normal 3.5 - 5.3 mmol/L [facility], [facility].; [facility], [facility]. Protein [Mass/Vol] 6.6 g/dL Normal 6.1 - 8.1 g/dL [facility], [facility].; [place] [employer] [facility], [facility]. Sodium [Moles/Vol] 141 mmol/L Normal 135 - 146 mmol/L [facility], [facility].; [facility], [facility]. Triglyceride [Mass/Vol] 120 mg/dL Normal H [facility].; [facility], [facility]. Urea nitrogen [Mass/Vol] 23 mg/dL Normal 7 - 25 mg/dL [facility].; [facility]. Urea nitrogen/Creatinine [Mass ratio] 25.2 mg/mg Abnormal 6 - 22 [facility].; [facility], [facility]. Laboratory - Chemistry and C hemistry - challengeon 12-27-2013 Albumin [Mass/Vol] 4.4 g/dL Normal 3.6 - 5.1 g/dL [facility].; [facility], [facility]. Albumin/Globulin [Mass ratio] 1.9 {ratio} Normal 1.0 - 2.5 [facility].; [facility]. ALP [Catalytic activity/Vol] 92 U/L Normal 33 - 130 U/L [facility].; [facility], [facility]. ALT [Catalytic activity/Vol] 20 U/L Normal 6 - 29 U/L [facility].; [facility]. AST [Catalytic activity/Vol] 23 U/L Normal 10 - 35 U/L [facility].; [facility], [facility]. Bilirubin [Mass/Vol] 1.3 mg/dL Abnormal 0.2 - 1 .2 mg/dL [facility].; [facility], [facility]. Calcium [Mass/Vol] 9.6 mg/dL Normal 8.6 - 10. 4 mg/dL [facility].; [facility]. Chloride [Moles/Vol] 108 mmol/L Normal 98 - 11 0 mmol/L [facility].; [facility], [facility]. Cholesterol [Mass/Vol] 172 mg/dL Normal 125 - 200 mg/dL [facility].; [facility], [facility]. Cholesterol in HDL [Mass/Vol] 55 mg/dL Normal [facility].; [facility], [facility]. Cholesterol in LDL [Mass/Vol] 98 mg/dL Normal [facility], [facility].; [place] [employer] [facility], [facility]. Cholesterol non HDL [Mass/Vol] 117 mg/dL Normal [facility].; [facility], [facility]. Cholesterol.total/Mari sterol in HDL [Mass ratio] 3.1 {ratio} Normal [facility], [facility].; [facility], [facility]. CO2 [Moles/Vol] 26 mmol/L Normal 19 - 30 mmol/L [facility], [facility].; [facility], [facility]. Creatinine [Mass/Vol] 0.92 mg/dL Normal 0.50 - 0.99 mg/dL [facility], [facility].; [facility], [facility]. GFR/1.73 sq M.predicted among blacks MDRD (S/P/Bld) [Vol rate/Area] 76 {ML/MIN/1.73M2} Normal [facility], [facility].; [facility], [facility]. GFR/1.73 sq M.predicted MDRD (S/P/Bld) [Vol rate/Area] 65 {ML/MIN/1.73M2} Normal [facility], [facility].; [place] [employer] [facility], [facility]. Globulin (S) [Mass/Vol] 2.3 g/dL Normal 1.9 - 3.7 g/dL [facility], [facility].; [place] [employer] [facility], [facility]. Glucose [Mass/Vol] 95 mg/dL Normal 65 - 99 mg/dL [facility], [facility].; [facility], [facility]. Potassium [Moles/Vol] 4.2 mmol/L Normal 3.5 - 5.3 mmol/L [facility], [facility].; [facility], [facility]. Protein [Mass/Vol] 6.7 g/dL Normal 6.1 - 8.1 g/dL [facility], [facility].; [place] [employer] [facility], [facility]. Sodium [Moles/Vol] 142 mmol/L Normal 135 - 146 mmol/L [facility], [facility].; [place] [employer] [facility], [facility]. Triglyceride [Mass/Vol] 94 mg/dL Normal [facility].; [place] [employer] [facility], [facility]. Urea nitrogen [Mass/Vol] 24 mg/dL Normal 7 - 25 mg/dL [facility], [facility].; [place] [employer] [facility], [facility] Urea nitrogen/Creatinine [Mass ratio] 26.2 mg/mg Abnormal [facility].; [facility], [facility]. Laboratory - Chemistry and C hemistry - challengeon 12-21-2012 Albumin [Mass/Vol] 4.5 g/dL Normal 3.6 - 5.1 g/dL [facility].; [facility] Albumin/Globulin [Mass ratio] 2.1 {ratio} Normal 1.0 - 2.5 [facility].; [place] [employer] [facility], [facility]. ALP [Catalytic activity/Vol] 93 U/L Normal 33 - 130 U/L [facility].; [facility], [facility]. ALT [Catalytic activity/Vol] 20 U/L Normal 6 - 29 U/L [facility].; [place] [employer] [facility], [facility]. AST [Catalytic activity/Vol] 20 U/L Normal 10 - 35 U/L [facility].; [place] [employer] [facility], [facility]. Bilirubin [Mass/Vol] 1.4 mg/dL Abnormal 0.2 - 1 .2 mg/dL [facility], [facility].; [place] [employer] [facility], [facility]. Calcium [Mass/Vol] 9.9 mg/dL Normal 8.6 - 10. 4 mg/dL [facility].; [place] [employer], [facility]. Chloride [Moles/Vol] 104 mmol/L Normal 98 - 11 0 mmol/L [facility].; [place] [employer] [facility], [facility]. Cholesterol [Mass/Vol] 177 mg/dL Normal 125 - 200 mg/dL [facility], [facility].; [place] [employer], [facility]. Cholesterol in HDL [Mass/Vol] 58 mg/dL Normal [facility], [facility].; [place] [employer], [facility]. Cholesterol in LDL [Mass/Vol] 91 mg/dL Normal [facility].; [place] [employer] [facility], [facility]. Cholesterol non HDL [Mass/Vol] 119 mg/dL Normal [facility].; [place] [employer] [facility], [facility]. Cholesterol.total/Mari sterol in HDL [Mass ratio] 3.1 {ratio} Normal [facility].; [place] [employer] [facility], [facility]. CO2 [Moles/Vol] 28 mmol/L Normal 19 - 30 mmol/L [facility], [facility].; [place] [employer], [facility]. Creatinine [Mass/Vol] 0.97 mg/dL Normal 0.50 - 0.99 mg/dL [facility].; [facility] GFR/1.73 sq M.predicted among blacks MDRD (S/P/Bld) [Vol rate/Area] 72 {ML/MIN/1.73M2} Normal [facility].; [facility], [facility]. GFR/1.73 sq M.predicted MDRD (S/P/Bld) [Vol rate/Area] 62 {ML/MIN/1.73M2} Normal [facility].; [facility] Globulin (S) [Mass/Vol] 2.2 g/dL Normal 1.9 - 3.7 g/dL [facility].; [facility], [facility]. Glucose [Mass/Vol] 93 mg/dL Normal 65 - 99 mg/dL [facility].; [facility], [facility]. Potassium [Moles/Vol] 4.3 mmol/L Normal 3.5 - 5.3 mmol/L [facility].; [facility]. Protein [Mass/Vol] 6.7 g/dL Normal 6.1 - 8.1 g/dL [facility].; [facility], [facility]. Sodium [Moles/Vol] 140 mmol/L Normal 135 - 146 mmol/L [facility].; [facility], [facility]. Triglyceride [Mass/Vol] 139 mg/dL Normal H [facility].; [facility], [facility]. Urea nitrogen [Mass/Vol] 19 mg/dL Normal 7 - 25 mg/dL [facility].; [facility], [facility] Urea nitrogen/Creatinine [Mass ratio] 20.0 mg/mg Normal 6 - 22 [facility].; [facility], [facility] Laboratory - Chemistry and C hemistry - challengeon 12-16-2011 Albumin [Mass/Vol] 4.5 g/dL Normal 3.6 - 5.1 g/dL [facility].; [facility], [facility]. Albumin/Globulin [Mass ratio] 1.8 {ratio} Normal 1.0 - 2.1 [facility].; [place] [employer] [facility]. ALP [Catalytic activity/Vol] 104 U/L Normal 33 - 130 U/L [facility].; [facility]. ALT [Catalytic activity/Vol] 36 U/L Normal 6 - 40 U/L [facility].; [facility], [facility]. AST [Catalytic activity/Vol] 33 U/L Normal 10 - 35 U/L [facility].; [place] [employer] [facility], [facility]. Bilirubin [Mass/Vol] 1.3 mg/dL Abnormal 0.2 - 1 .2 mg/dL [facility].; [facility]. Calcium [Mass/Vol] 10.2 mg/dL Normal 8.6 - 10. 4 mg/dL [facility].; [facility], [facility]. Chloride [Moles/Vol] 103 mmol/L Normal 98 - 11 0 mmol/L [facility].; [place] [employer] [facility], [facility]. Cholesterol [Mass/Vol] 178 mg/dL Normal 125 - 200 mg/dL [facility], [facility].; [facility], [facility]. Cholesterol in HDL [Mass/Vol] 50 mg/dL Normal [facility].; [place] [facility] [facility] Cholesterol in LDL [Mass/Vol] 96 mg/dL Normal [facility].; [place] [employer] [facility] Cholesterol non HDL [Mass/Vol] 128 mg/dL Normal [facility].; [facility] Cholesterol.total/Mari sterol in HDL [Mass ratio] 3.6 {ratio} Normal [facility].; [place] [employer] [facility]. CO2 [Moles/Vol] 29 mmol/L Normal 21 - 33 mmol/L [facility].; [place] [employer] [facility]. Creatinine [Mass/Vol] 0.93 mg/dL Normal 0.50 - 0.99 mg/dL [facility], [facility].; [facility], [facility]. GFR/1.73 sq M.predicted among blacks MDRD (S/P/Bld) [Vol rate/Area] 76 {ML/MIN/1.73M2} Normal [facility], [facility].; [facility], [facility]. GFR/1.73 sq M.predicted MDRD (S/P/Bld) [Vol rate/Area] 65 {ML/MIN/1.73M2} Normal [facility].; [facility], [facility] Globulin (S) [Mass/Vol] 2.5 g/dL Normal 2.2 - 3.9 g/dL [facility].; [facility], [facility]. Glucose [Mass/Vol] 102 mg/dL Abnormal 65 - 99 mg/dL [facility].; [facility], [facility] Potassium [Moles/Vol] 4.7 mmol/L Normal 3.5 - 5.3 mmol/L [facility].; [facility], [facility] Protein [Mass/Vol] 7.0 g/dL Normal 6.2 - 8.3 g/dL [facility]; [facility], [facility] Sodium [Moles/Vol] 141 mmol/L Normal 135 - 146 mmol/L [facility].; [facility], [facility] Triglyceride [Mass/Vol] 162 mg/dL Abnormal H [facility].; [facility], [facility] Urea nitrogen [Mass/Vol] 16 mg/dL Normal 7 - 25 mg/dL [facility].; [facility], [facility] Urea nitrogen/Creatinine [Mass ratio] 16.8 mg/mg Normal 6 - 22 [facility]; [facility], [facility] Laboratory - Chemistry and C hemistry - challengeon 12-19-2010 Albumin [Mass/Vol] 4.9 g/dL Normal 3.6 - 5.1 g/dL [facility].; [facility], [facility] Albumin/Globulin [Mass ratio] 2.1 {ratio} Normal 1.0 - 2.1 [facility].; [facility], [facility]. ALP [Catalytic activity/Vol] 118 U/L Normal 33 - 130 U/L [facility], [facility].; [facility], [facility]. ALT [Catalytic activity/Vol] 24 U/L Normal 6 - 40 U/L [facility].; [facility], [facility]. AST [Catalytic activity/Vol] 22 U/L Normal 10 - 35 U/L [facility], [facility].; [facility], [facility]. Bilirubin [Mass/Vol] 1.8 mg/dL Abnormal 0.2 - 1 .2 mg/dL [facility], [facility].; [place] [employer] [facility], [facility]. Calcium [Mass/Vol] 9.9 mg/dL Normal 8.6 - 10. 2 mg/dL [facility], [facility].; [place] [employer] [facility], [facility]. Chloride [Moles/Vol] 104 mmol/L Normal 98 - 11 0 mmol/L [facility], [facility].; [place] [employer] [facility], [facility]. Cholesterol [Mass/Vol] 181 mg/dL Normal 125 - 200 mg/dL [facility], [facility].; [place] [employer] [facility], [facility]. Cholesterol in HDL [Mass/Vol] 53 mg/dL Normal [facility], [facility].; [place] [employer] [facility], [employer]. Cholesterol in LDL [Mass/Vol] 96 mg/dL Normal [facility], [facility].; [place] [employer] [facility], [facility]. Cholesterol.total/Mari sterol in HDL [Mass ratio] 3.4 {ratio} Normal [facility], [facility].; [place] [employer]. CO2 [Moles/Vol] 27 mmol/L Normal 21 - 33 mmol/L [facility], [facility].; [place] [employer] Creatinine [Mass/Vol] 1.10 mg/dL Normal 0.60 - 1.18 mg/dL [facility], [facility].; [place] [employer] [facility], [facility]. GFR/1.73 sq M.predicted among blacks MDRD (S/P/Bld) [Vol rate/Area] 62 {ML/MIN/1.73M2} Normal [facility], [facility].; [place] [employer] [facility], [facility]. GFR/1.73 sq M.predicted MDRD (S/P/Bld) [Vol rate/Area] 54 {ML/MIN/1.73M2} Abnormal [facility], [facility].; [place] [employer] [facility], [facility]. Globulin (S) [Mass/Vol] 2.3 g/dL Normal 2.2 - 3.9 g/dL [facility], [facility].; [place] [employer] Glucose [Mass/Vol] 99 mg/dL Normal 65 - 99 mg/dL [facility], [facility].; [employer] Potassium [Moles/Vol] 4.3 mmol/L Normal 3.5 - 5.3 mmol/L [facility], [facility].; [facility], [facility]. Protein [Mass/Vol] 7.2 g/dL Normal 6.2 - 8.3 g/dL [facility], [facility].; [facility], [facility]. Sodium [Moles/Vol] 140 mmol/L Normal 135 - 146 mmol/L [facility], [facility].; [facility], [facility]. Triglyceride [Mass/Vol] 162 mg/dL Abnormal H [facility].; [facility], [facility] Urea nitrogen [Mass/Vol] 15 mg/dL Normal 7 - 25 mg/dL [facility], [facility].; [facility], [facility]. Urea nitrogen/Creatinine [Mass ratio] 13.8 mg/mg Normal 6 - 22 [facility], [facility].; [facility], [facility]. Laboratory - Chemistry and C hemistry - challengeon 12-20-2009 Albumin [Mass/Vol] 4.5 g/dL Normal 3.6 - 5.1 g/dL [facility], [facility].; [facility], [facility]. Albumin/Globulin [Mass ratio] 1.9 {ratio} Normal 1.0 - 2.1 [facility].; [facility], [facility]. ALP [Catalytic activity/Vol] 108 U/L Normal 33 - 130 U/L [facility], [facility].; [facility], [facility]. ALT [Catalytic activity/Vol] 25 U/L Normal 6 - 40 U/L [facility], [facility].; [facility], [facility]. AST [Catalytic activity/Vol] 23 U/L Normal 10 - 35 U/L [facility], [facility].; [facility], [facility]. Bilirubin [Mass/Vol] 1.5 mg/dL Abnormal 0.2 - 1 .2 mg/dL [facility], [facility].; [facility], [facility]. Calcium [Mass/Vol] 9.7 mg/dL Normal 8.6 - 10. 2 mg/dL [facility], [facility].; [facility], [facility]. Chloride [Moles/Vol] 104 mmol/L Normal 98 - 11 0 mmol/L [facility], [facility].; [facility], [facility]. Cholesterol [Mass/Vol] 197 mg/dL Normal 125 - 200 mg/dL [facility], [facility].; [facility], [facility]. Cholesterol in HDL [Mass/Vol] 55 mg/dL Normal [facility].; [facility], [facility]. Cholesterol in LDL [Mass/Vol] 111 mg/dL Normal [facility].; [facility], [facility]. Cholesterol.total/Mari sterol in HDL [Mass ratio] 3.6 {ratio} Normal [facility].; [place] [employer] [facility], [facility]. CO2 [Moles/Vol] 25 mmol/L Normal 21 - 33 mmol/L [facility].; [place] [employer] [facility], [facility]. Creatinine [Mass/Vol] 0.94 mg/dL Normal 0.60 - 1.18 mg/dL [facility], [facility].; [facility], [facility]. GFR/1.73 sq M.predicted among blacks MDRD (S/P/Bld) [Vol rate/Area] mL/min/{1.73_m2} Normal [facility], [facility].; [facility], [facility]. GFR/1.73 sq M.predicted MDRD (S/P/Bld) [Vol rate/Area] mL/min/{1.73_m2} Normal [place] [facility] [facility].; [place] [employer] [facility], [facility]. Globulin (S) [Mass/Vol] 2.4 g/dL Normal 2.2 - 3.9 g/dL [facility].; [place] [employer] [facility], [facility]. Glucose [Mass/Vol] 92 mg/dL Normal 65 - 99 mg/dL [place] [employer] [facility], [facility].; [place] [employer], [facility]. Potassium [Moles/Vol] 4.4 mmol/L Normal 3.5 - 5.3 mmol/L [facility].; [employer] Protein [Mass/Vol] 6.9 g/dL Normal 6.2 - 8.3 g/dL [place] [employer] [facility], [facility].; [place] [employer], [facility]. Sodium [Moles/Vol] 140 mmol/L Normal 135 - 146 mmol/L [place] [employer] [facility], [facility].; [employer] Triglyceride [Mass/Vol] 154 mg/dL Abnormal H [facility].; [place] [employer], [facility]. Urea nitrogen [Mass/Vol] 17 mg/dL Normal 7 - 25 mg/dL [place] [facility].; [facility], [facility]. Urea nitrogen/Creatinine [Mass ratio] 17.7 mg/mg Normal 6 - 22 [facility].; [facility] Vital Signs Date Time Vital Sign Value Performing Clinician Facility 10-27-2024 08:58-0400 Body height 157.[address] Moose Dempsey MD Work Phone: 1(099)[phone] [place] [address] 10-27-2024 08:58-0400 Body mass index (BMI) [Ratio] 29.6 kg/m2 Dr. Moose Dempsey MD Work Phone: 6(367)048-973025 [place] [address] 10-27-2024 08:58-0400 Body weight 73.[address] Moose Dempsey MD Work Phone: 1(632)860-823625 [place] [address] 09-29-2024 09:03-0400 Body height 157.[address] Moose Dempsey MD Work Phone: 0(720)616-836725 [place] [address] 09-29-2024 09:03-0400 Body mass index (BMI) [Ratio] 30.3 kg/m2 Dr. Moose Dempsey MD Work Phone: 0(210)031-240525 [place] [address] 09-29-2024 09:03-0400 Body weight 75.[address] Moose Dempsey MD Work Phone: 5(210)456-345825 [place] [address] 09-18-2024 11:40-0400 Body temperature 97.8 [degF] Dr. Moose Dempsey MD Work Phone: 5(140)949-622625 [place] [address] 09-18-2024 11:40-0400 Diastolic blood pressure 96 mm[Hg] Dr. Moose Dempsey MD Work Phone: 7(102)642-878425 [place] [address] 09-18-2024 11:40-0400 Heart rate 97 /min Dr. Moose Dempsey MD Work Phone: 1(457)637-019425 [place] [address] 09-18-2024 11:40-0400 Respiratory rate 16 /min Dr. Moose Dempsey MD Work Phone: 1(093)558-331625 [place] [address] 09-18-2024 11:40-0400 SaO2% (BldA) [Mass fraction] 97 % Dr. Moose Dempsey MD Work Phone: 0(691)034-129425 [place] [address] 09-18-2024 11:40-0400 Systolic blood pressure 154 mm[Hg] Dr. Moose Dempsey MD Work Phone: 5(548)980-849385 [place] [address] 09-18-2024 09:07-0400 Body height 157.[address] Moose Dempsey MD Work Phone: 1(569)847-835132 [address] 09-18-2024 09:07-0400 Body mass index (BMI) [Ratio] 31.2 kg/m2 Dr. Moose Dempsey MD Work Phone: 9(982)920-729425 [place] [address] 09-18-2024 09:07-0400 Body weight 77.[address] Moose Dempsey MD Work Phone: 2(099)926-634025 [place] [address] 09-15-2024 09:15-0400 Body temperature 97.7 [degF] Dr. Moose Dempsey MD Work Phone: 7(578)808-682825 [place] [address] 09-15-2024 09:15-0400 Diastolic blood pressure 71 mm[Hg] Dr. Moose Dempsey MD Work Phone: 5(124)209-473325 [place] [address] 09-15-2024 09:15-0400 Heart rate 71 /min Dr. Moose Dempsey MD Work Phone: 7(072)082-582325 [place] [address] 09-15-2024 09:15-0400 Respiratory rate 17 /min Dr. Moose Dempsey MD Work Phone: 0([phone])787-335725 [place] [address] 09-15-2024 09:15-0400 SaO2% (BldA) [Mass fraction] 93 % Dr. Moose Dempsey MD Work Phone: 8(585)927-352485 [place] [address] 09-15-2024 09:15-0400 Systolic blood pressure 134 mm[Hg] Dr. Moose Dempsey MD Work Phone: 0(431)030-529225 [place] [address] 09-15-2024 00:58-0400 Inhaled oxygen flow rate 2 L/min Dr. Moose Dempsey MD Work Phone: 5(281)423-810332 [address] 09-14-2024 14:07-0400 Body height 157.[address] Moose Dempsey MD Work Phone: 5(426)440-141632 [address] 09-14-2024 14:07-0400 Body mass index (BMI) [Ratio] 30.6 kg/m2 Dr. Moose Dempsey MD Work Phone: [facility] 09-14-2024 14:07-0400 Body weight [address] Moose Dempsey MD Work Phone: [facility] 09-01-2024 10:40-0400 Body height 157.[address] Moose Dempsey MD Work Phone: [facility] 09-01-2024 10:40-0400 Body mass index (BMI) [Ratio] 30.3 kg/m2 Dr. Moose Dempsey MD Work Phone: [facility] 09-01-2024 10:40-0400 Body weight 75.[address] Moose Dempsey MD Work Phone: [facility] 08-30-2024 09:33-0400 Body height 157.48 cm Valerie Arias LPN [facility], [facility].; [facility], [facility]. 08-30-2024 09:33-0400 Body mass index (BMI) [Ratio] 30.91 kg/m2 Valerie Arias LPN [facility], [facility].; [facility], [facility]. 08-30-2024 09:33-0400 Body surface area Derived from formula 1.78 m2 Valerie Arias LPN [facility], [facility].; [facility], [facility]. 08-30-2024 09:33-0400 Body weight 76.66 kg Valerie Arias LPN [facility], [facility].; [facility], [facility]. 08-30-2024 09:33-0400 Diastolic blood pressure 81 mm[Hg] Valerie Arias LPN [facility], [facility].; [facility], [facility]. Comment on above: Patient Position: Sitting; Cuff Location : Left Arm; Cuff Size: Standard 08-30-2024 09:33-0400 Heart rate 79 /min Valerie Arias LPN [facility], [facility].; [place] [employer] [facility], [facility]. Comment on above: Pattern: Regular 08-30-2024 09:33-0400 Systolic blood pressure 129 mm[Hg] Valerie Arias LPN [facility], [facility].; [place] [employer] [facility]. Comment on above: Patient Position: Sitting; Cuff Location : Left Arm; Cuff Size: Standard 07-28-2024 13:21-0400 Body height 157.[address] Moose Dempsey MD Work Phone: [facility] 07-28-2024 13:21-0400 Body mass index (BMI) [Ratio] 31.1 kg/m2 Dr. Moose Dempsey MD Work Phone: [facility] 07-28-2024 13:21-0400 Body weight 77.[address] Moose Dempsey MD Work Phone: [facility] 04-26-2024 09:49-0500 Body height 157.48 cm Manny Tomy [employer] [facility], [facility].; [facility]. 04-26-2024 09:49-0500 Body mass index (BMI) [Ratio] 31.64 kg/m2 Manny Tomy [employer] [facility], [facility]. 04-26-2024 09:49-0500 Body surface area Derived from formula 1.8 m2 Manny Tomy [employer] [facility], [facility].; [facility], [facility]. 04-26-2024 09:49-0500 Body weight 78.47 kg Manny Tomy [employer] [facility], [facility].; [facility], [facility]. 04-26-2024 09:49-0500 Diastolic blood pressure 82 mm[Hg] Manny Tomy [facility], [facility]. Comment on above: Patient Position: Sitting; Cuff Location : Left Arm; Cuff Size: Standard 04-26-2024 09:49-0500 Heart rate 73 /min Manny Tomy [employer] [facility], [facility].; [facility], [facility]. Comment on above: Pattern: Regular 04-26-2024 09:49-0500 Systolic blood pressure 135 mm[Hg] Manny Huitron LPN [facility] Comment on above: Patient Position: Sitting; Cuff Location : Left Arm; Cuff Size: Standard 10-28-2023 08:44-0400 Body height 157.48 cm Moose Dempsey MD Work Phone: [employer]. 10-28-2023 08:44-0400 Body mass index (BMI) [Ratio] 31.09 kg/m2 Moose Dempsey MD Work Phone: [employer].; [employer]. 10-28-2023 08:44-0400 Body surface area Derived from formula 1.78 m2 Moose Dempsey MD Work Phone: [employer].; [employer]. 10-28-2023 08:44-0400 Body weight 77.11 kg Moose Dempsey MD Work Phone: [employer]; [employer]. 10-28-2023 08:44-0400 Diastolic blood pressure 80 mm[Hg] Moose Dempsey MD Work Phone: [employer]; [employer]. Comment on above: Patient Position: Sitting; Cuff Location : Left Arm; Cuff Size: Standard 10-28-2023 08:44-0400 Heart rate 80 /min Moose Dempsey MD Work Phone: [employer]; [employer]. Comment on above: Pattern: Regular 10-28-2023 08:44-0400 Systolic blood pressure 132 mm[Hg] Moose Dempsey MD Work Phone: [employer]; [employer]. Comment on above: Patient Position: Sitting; Cuff Location : Left Arm; Cuff Size: Standard 08-10-2023 13:26-0400 Body height 157.48 cm Valerie Arias LPN [employer] [facility] [employer]. 08-10-2023 13:26-0400 Body mass index (BMI) [Ratio] 31.64 kg/m2 Valerie Arias LPN [place] [employer] [facility].; [employer]. 08-10-2023 13:26-0400 Body surface area Derived from formula 1.8 m2 Valerie Arias LPN [employer] [facility].; [employer]. 08-10-2023 13:26-0400 Body weight 78.47 kg Valerie Arias LPN [place] [employer] [facility].; [employer] [facility]. 08-10-2023 13:26-0400 Diastolic blood pressure 82 mm[Hg] Valerie Arias LPN [facility].; [employer]. Comment on above: Patient Position: Sitting; Cuff Location : Left Arm; Cuff Size: Standard 08-10-2023 13:26-0400 Heart rate 97 /min Valerie Arias LPN [place] [employer] [facility].; [employer]. Comment on above: Pattern: Regular 08-10-2023 13:26-0400 Systolic blood pressure 158 mm[Hg] Valerie Arias LPN [place] [employer] [facility].; [employer]. Comment on above: Patient Position: Sitting; Cuff Location : Left Arm; Cuff Size: Standard 04-28-2023 09:21-0500 Diastolic blood pressure 70 mm[Hg] Moose Dempsey MD Work Phone: [place] [employer]. Comment on above: Patient Position: Sitting; Cuff Location : Left Arm; Cuff Size: Standard 04-28-2023 09:21-0500 Systolic blood pressure 112 mm[Hg] Moose Dempsey MD Work Phone: [place] [employer] [facility] [employer]. Comment on above: Patient Position: Sitting; Cuff Location : Left Arm; Cuff Size: Standard 04-28-2023 07:50-0500 Body height 157.48 cm Moose Dempsey MD Work Phone: [place] [employer]. 04-28-2023 07:50-0500 Body mass index (BMI) [Ratio] 31.09 kg/m2 Moose Dempsey MD Work Phone: [employer] 04-28-2023 07:50-0500 Body surface area Derived from formula 1.78 m2 Moose Dempsey MD Work Phone: [employer] 04-28-2023 07:50-0500 Body weight 77.11 kg Moose Dempsey MD Work Phone: [facility] [employer]. 04-28-2023 07:50-0500 Diastolic blood pressure 80 mm[Hg] Moose Dempsey MD Work Phone: [facility] [employer]. Comment on above: Patient Position: Sitting; Cuff Location : Left Arm; Cuff Size: Large 04-28-2023 07:50-0500 Heart rate 79 /min Moose Dempsey MD Work Phone: [facility], [employer]. Comment on above: Pattern: Regular 04-28-2023 07:50-0500 Systolic blood pressure 144 mm[Hg] Moose Dempsey MD Work Phone: [facility], [employer].; [employer]. Comment on above: Patient Position: Sitting; Cuff Location : Left Arm; Cuff Size: Large 02-02-2023 13:29-0500 Body height 157.48 cm [facility] [employer] 02-02-2023 13:29-0500 Body mass index (BMI) [Ratio] 30.73 kg/m2 [facility] [employer] 02-02-2023 13:29-0500 Body surface area Derived from formula 1.78 m2 [facility] [facility] [employer], [employer]. 02-02-2023 13:29-0500 Body weight 76.2 kg [facility] [employer] [facility] [employer], [employer]. 02-02-2023 13:29-0500 Diastolic blood pressure 83 mm[Hg] Libra Stuckey [facility], [facility].; [employer], [employer]. Comment on above: Patient Position: Sitting; Cuff Location : Left Arm; Cuff Size: Large 02-02-2023 13:29-0500 Heart rate 71 /min [facility]. Comment on above: Pattern: Regular 02-02-2023 13:29-0500 Systolic blood pressure 150 mm[Hg] Sydnie Boyle [facility]. Comment on above: Patient Position: Sitting; Cuff Location : Left Arm; Cuff Size: Large 10-21-2022 10:54-0400 Body height 157.48 cm Moose Dempsey MD Work Phone: [employer] [facility]. 10-21-2022 10:54-0400 Body mass index (BMI) [Ratio] 31.09 kg/m2 Moose Dempsey MD Work Phone: [employer].; [facility]. 10-21-2022 10:54-0400 Body surface area Derived from formula 1.78 m2 Moose Dempsey MD Work Phone: [employer].; [facility]. 10-21-2022 10:54-0400 Body weight 77.11 kg Moose Dempsey MD Work Phone: [employer].; [facility]. 10-21-2022 10:54-0400 Diastolic blood pressure 76 mm[Hg] Moose Dempsey MD Work Phone: [employer].; [facility]. Comment on above: Patient Position: Sitting; Cuff Location : Left Arm; Cuff Size: Large 10-21-2022 10:54-0400 Heart rate 73 /min Moose Dempsey MD Work Phone: [employer].; [facility]. Comment on above: Pattern: Regular 10-21-2022 10:54-0400 Systolic blood pressure 128 mm[Hg] Moose Dempsey MD Work Phone: [employer].; [facility]. Comment on above: Patient Position: Sitting; Cuff Location : Left Arm; Cuff Size: Large 04-01-2022 09:48-0500 Body height 157.48 cm Valerie Reynolds MA [facility], [facility].; [facility], [facility]. 04-01-2022 09:48-0500 Body mass index (BMI) [Ratio] 30.54 kg/m2 Valerie Reynolds MA [facility], [facility].; [facility] 04-01-2022 09:48-0500 Body surface area Derived from formula 1.77 m2 Valerie Reynolds MA [facility], [facility], [facility]. 04-01-2022 09:48-0500 Body weight 75.75 kg Valerie Reynolds MA [facility], [facility].; [facility], [facility]. 04-01-2022 09:48-0500 Diastolic blood pressure 85 mm[Hg] Valerie Reynolds MA [facility], [facility].; [place] [facility] Comment on above: Patient Position: Sitting; Cuff Location : Left Arm; Cuff Size: Standard 04-01-2022 09:48-0500 Heart rate 73 /min Valerie Reynolds MA [facility], [facility].; [place] [facility]. Comment on above: Pattern: Regular 04-01-2022 09:48-0500 Systolic blood pressure 133 mm[Hg] Valerie Reynolds MA [facility], [facility].; [facility], [facility]. Comment on above: Patient Position: Sitting; Cuff Location : Left Arm; Cuff Size: Standard 09-24-2021 10:47-0400 Body height 157.48 cm Valerie Arias LPN [facility], [facility].; [place] [facility]. 09-24-2021 10:47-0400 Body mass index (BMI) [Ratio] 30.19 kg/m2 Valerie Arias LPN [facility], [facility].; [place] [facility], [facility]. 09-24-2021 10:47-0400 Body surface area Derived from formula 1.76 m2 Valerie Arias LPN [facility], [facility].; [place] [facility], [facility]. 09-24-2021 10:47-0400 Body weight 74.87 kg Valerie Arias LPN [facility], [facility].; [place] [facility], [facility]. 09-24-2021 10:47-0400 Diastolic blood pressure 65 mm[Hg] Valerie Arias MADAI [facility], [facility].; [facility]. Comment on above: Patient Position: Sitting; Cuff Location : Left Arm; Cuff Size: Standard 09-24-2021 10:47-0400 Heart rate 70 /min Valerie Arias MADAI [facility], [facility].; [facility]. Comment on above: Pattern: Regular 09-24-2021 10:47-0400 Systolic blood pressure 118 mm[Hg] Valerie Arias MADAI [place] [facility], [facility].; [facility]. Comment on above: Patient Position: Sitting; Cuff Location : Left Arm; Cuff Size: Standard 03-20-2021 09:01-0500 Body height 157.48 cm Moose Dempsey MD Work Phone: [place] [employer].; [facility]. 03-20-2021 09:01-0500 Body mass index (BMI) [Ratio] 30.54 kg/m2 Moose Dempsey MD Work Phone: [place] [employer].; [facility]. 03-20-2021 09:01-0500 Body surface area Derived from formula 1.77 m2 Moose Dempsey MD Work Phone: [employer].; [facility]. 03-20-2021 09:01-0500 Body weight 75.75 kg Moose Dempsey MD Work Phone: [place] [facility]. 03-20-2021 09:01-0500 Diastolic blood pressure 80 mm[Hg] Moose Dempsey MD Work Phone: [employer].; [facility]. Comment on above: Patient Position: Sitting; Cuff Location : Right Arm; Cuff Size: Standard 03-20-2021 09:01-0500 Heart rate 84 /min Moose Dempsey MD Work Phone: [place] [employer].; [facility]. Comment on above: Pattern: Regular 03-20-2021 09:01-0500 Systolic blood pressure 142 mm[Hg] Moose Dempsey MD Work Phone: [employer].; [facility]. Comment on above: Patient Position: Sitting; Cuff Location : Right Arm; Cuff Size: Standard 09-18-2020 10:07-0400 Body height 157.48 cm Moose Dempsey MD Work Phone: [employer].; [facility]. 09-18-2020 10:07-0400 Body mass index (BMI) [Ratio] 29.81 kg/m2 Moose Dempsey MD Work Phone: [employer].; [facility]. 09-18-2020 10:07-0400 Body surface area Derived from formula 1.75 m2 Moose Dempsey MD Work Phone: [employer].; [facility]. 09-18-2020 10:07-0400 Body weight 73.94 kg Moose Dempsey MD Work Phone: [facility].; [facility]. 09-18-2020 10:07-0400 Diastolic blood pressure 80 mm[Hg] Moose Dempsey MD Work Phone: [facility].; [facility]. Comment on above: Patient Position: Sitting; Cuff Location : Left Arm; Cuff Size: Standard 09-18-2020 10:07-0400 Heart rate 79 /min Moose Dempsey MD Work Phone: [facility].; [facility]. Comment on above: Pattern: Regular 09-18-2020 10:07-0400 Systolic blood pressure 132 mm[Hg] Moose Dempsey MD Work Phone: [facility].; [facility]. Comment on above: Patient Position: Sitting; Cuff Location : Left Arm; Cuff Size: Standard 03-20-2020 08:48-0500 Body height 157.48 cm Libra Tamar AJ [employer].; [facility]. 03-20-2020 08:48-0500 Body mass index (BMI) [Ratio] 29.45 kg/m2 Sydnie Boyle LPN [facility] 03-20-2020 08:48-0500 Body surface area Derived from formula 1.74 m2 Sydnie Boyle [employer] [facility], [facility].; [employer] 03-20-2020 08:48-0500 Body weight 73.03 kg Sydnie Boyle [employer] ENGINE[employer] [facility], [facility].; [employer] 03-20-2020 08:48-0500 Diastolic blood pressure 81 mm[Hg] Sydnie Boyle [facility] [employer] Comment on above: Patient Position: Sitting; Cuff Location : Left Arm; Cuff Size: Large 03-20-2020 08:48-0500 Heart rate 80 /min Sydnie Boyle [employer] ENGINEER [facility].; [employer] Comment on above: Pattern: Regular 03-20-2020 08:48-0500 Systolic blood pressure 130 mm[Hg] Sydnie Boyle [employer] ENGINE[employer] [facility].; [employer] Comment on above: Patient Position: Sitting; Cuff Location : Left Arm; Cuff Size: Large 09-13-2019 08:08-0400 Body height 157.48 cm Sydnie Boyle LPN [facility], [facility].; [employer] 09-13-2019 08:08-0400 Body mass index (BMI) [Ratio] 28.72 kg/m2 Sydnie Boyle [employer] ENGINE[employer] [facility].; [facility] 09-13-2019 08:08-0400 Body surface area Derived from formula 1.72 m2 Sydnie Boyle [employer] ENGINEER [facility].; [employer] 09-13-2019 08:08-0400 Body weight 71.22 kg Sydnie Boyle [facility] [employer] 09-13-2019 08:08-0400 Diastolic blood pressure 82 mm[Hg] Sydnie Boyle [employer] ENGINEER [facility].; [facility]. Comment on above: Patient Position: Sitting; Cuff Location : Left Arm; Cuff Size: Large 09-13-2019 08:08-0400 Heart rate 76 /min Sydnie Boyel MADAI [facility], [employer].; [facility]. Comment on above: Pattern: Regular 09-13-2019 08:08-0400 Systolic blood pressure 130 mm[Hg] Sydnie Boyle MADAI [employer].; [facility]. Comment on above: Patient Position: Sitting; Cuff Location : Left Arm; Cuff Size: Large 08-01-2019 09:21-0400 Body height 157.48 cm Chrissie Vasquez RN [employer] [facility]. 08-01-2019 09:21-0400 Body mass index (BMI) [Ratio] 29.45 kg/m2 Chrissie Vasquez RN [employer] [facility]. 08-01-2019 09:21-0400 Body surface area Derived from formula 1.74 m2 Chrissie Vasquez RN [place] [facility]. 08-01-2019 09:21-0400 Body temperature 97.6 [degF] Chrissie Vasquez RN [employer].; [facility]. Comment on above: Method: Tympanic 08-01-2019 09:21-0400 Body weight 73.03 kg Chrissie Vasquez RN [employer] [facility]. 08-01-2019 09:21-0400 Diastolic blood pressure 83 mm[Hg] Chrissie Vasquez RN [employer].; [facility]. Comment on above: Patient Position: Sitting; Cuff Location : Left Arm; Cuff Size: Standard 08-01-2019 09:21-0400 Heart rate 81 /min Chrissie Vasquez RN [employer].; [facility]. Comment on above: Pattern: Regular 08-01-2019 09:21-0400 Systolic blood pressure 150 mm[Hg] Chrissie Vasquez RN [employer] Comment on above: Patient Position: Sitting; Cuff Location : Left Arm; Cuff Size: Standard 03-29-2019 09:56-0500 Body height 157.48 cm Sydnie Boyle [employer] ENGINEER [facility].; [employer] 03-29-2019 09:56-0500 Body mass index (BMI) [Ratio] 29.45 kg/m2 Sydnie Boyle [employer] ENGINE[employer] [facility].; [facility] 03-29-2019 09:56-0500 Body surface area Derived from formula 1.74 m2 Sydnie Boyle MADAI [facility].; [employer] 03-29-2019 09:56-0500 Body weight 73.03 kg Sydnie Boyle [facility] [employer] 03-29-2019 09:56-0500 Diastolic blood pressure 81 mm[Hg] Sydnie Boyle [employer] ENGINEER [facility] [employer] Comment on above: Patient Position: Sitting; Cuff Location : Left Arm; Cuff Size: Large 03-29-2019 09:56-0500 Heart rate 80 /min Sydnie Boyle [employer] ENGINEER [facility].; [employer] Comment on above: Pattern: Regular 03-29-2019 09:56-0500 Systolic blood pressure 118 mm[Hg] Sydnie Boyle [employer] ENGINEER [facility] [employer] Comment on above: Patient Position: Sitting; Cuff Location : Left Arm; Cuff Size: Large 03-11-2019 08:53-0500 Body height 157.48 cm Ina Parmar [employer]ING ENGINEER [facility].; [employer] 03-11-2019 08:53-0500 Body mass index (BMI) [Ratio] 29.26 kg/m2 Ina Ghulam [facility] [employer] 03-11-2019 08:53-0500 Body surface area Derived from formula 1.74 m2 Ina Parmar [employer] ENGINEER [place] [facility] [employer], [employer]. 03-11-2019 08:53-0500 Body weight 72.58 kg Ina Parmar [employer] ENGINE[employer]. 03-11-2019 08:53-0500 Diastolic blood pressure 80 mm[Hg] Ina Parmar [employer]INE[employer]. Comment on above: Patient Position: Sitting; Cuff Location : Left Arm; Cuff Size: Standard 03-11-2019 08:53-0500 Heart rate 72 /min Ina Parmar MADAI [employer] [employer]. Comment on above: Pattern: Regular 03-11-2019 08:53-0500 Systolic blood pressure 123 mm[Hg] Ina Simmonsugg [employer] ENGINEER [employer], [employer].; [facility]. Comment on above: Patient Position: Sitting; Cuff Location : Left Arm; Cuff Size: Standard 08-27-2018 07:13-0400 Body height 157.48 cm Chrissie Vasquez RN [employer], [employer].; [facility]. 08-27-2018 07:13-0400 Body mass index (BMI) [Ratio] 29.26 kg/m2 Chrissie Vasquez RN [employer], [employer]. 08-27-2018 07:13-0400 Body surface area Derived from formula 1.74 m2 Chrissie Vasquez RN [employer], [employer].; [employer] 08-27-2018 07:13-0400 Body weight 72.58 kg Chrissie Vasquez RN [employer].; [facility]. 08-27-2018 07:13-0400 Diastolic blood pressure 78 mm[Hg] Chrissie Vasquez RN [employer].; [facility]. Comment on above: Patient Position: Sitting; Cuff Location : Right Arm; Cuff Size: Standard 08-27-2018 07:13-0400 Heart rate 71 /min Chrissie Vasquez RN [employer].; [facility]. Comment on above: Pattern: Regular 08-27-2018 07:13-0400 Systolic blood pressure 129 mm[Hg] Chrissie Vasquez RN [facility], [employer].; [employer], [employer]. Comment on above: Patient Position: Sitting; Cuff Location : Right Arm; Cuff Size: Standard 03-16-2018 11:17-0500 Body height 157.48 cm Sydnie Boyle [facility] [employer] 03-16-2018 11:17-0500 Body mass index (BMI) [Ratio] 30.36 kg/m2 Sydnie Boyle [facility] [employer], [employer]. 03-16-2018 11:17-0500 Body surface area Derived from formula 1.77 m2 Sydnie Boyle [facility] [employer], [employer]. 03-16-2018 11:17-0500 Body weight 75.3 kg Sydnie Boyle [facility] [employer], [employer]. 03-16-2018 11:17-0500 Diastolic blood pressure 81 mm[Hg] Sydnie Boyle [facility] [employer], [employer]. Comment on above: Patient Position: Sitting; Cuff Location : Left Arm; Cuff Size: Large 03-16-2018 11:17-0500 Heart rate 105 /min Sydnie Boyle [facility] [employer], [employer]. Comment on above: Pattern: Regular 03-16-2018 11:17-0500 Systolic blood pressure 150 mm[Hg] Sydnie Boyle [facility] [employer], [employer]. Comment on above: Patient Position: Sitting; Cuff Location : Left Arm; Cuff Size: Large 02-26-2018 08:35-0500 Body height 157.48 cm Michelle Shannon Lyndsey [facility] [employer], [employer]. 02-26-2018 08:35-0500 Body mass index (BMI) [Ratio] 30.36 kg/m2 Michelle Shannon Lyndsey [facility] [employer], [employer]. 02-26-2018 08:35-0500 Body surface area Derived from formula 1.77 m2 Michelle Shannon Lyndsey [employer]AC[employer]ING ENGINEER [facility].; [employer] 02-26-2018 08:35-0500 Body weight 75.3 kg Michelle Solorio [facility] [employer] 02-26-2018 08:35-0500 Diastolic blood pressure 82 mm[Hg] Michelle Solorio [facility] [employer] Comment on above: Patient Position: Sitting; Cuff Location : Left Arm; Cuff Size: Standard 02-26-2018 08:35-0500 Heart rate 80 /min Michelle Solorio [facility] [employer] Comment on above: Pattern: Regular 02-26-2018 08:35-0500 Systolic blood pressure 123 mm[Hg] Michelle Solorio [facility] [employer] Comment on above: Patient Position: Sitting; Cuff Location : Left Arm; Cuff Size: Standard 08-25-2017 07:54-0400 Body height 157.48 cm Sydnie Boyle [facility] [employer] 08-25-2017 07:54-0400 Body mass index (BMI) [Ratio] 30.36 kg/m2 Sydnie Boyle [facility] [employer] 08-25-2017 07:54-0400 Body surface area Derived from formula 1.77 m2 Sydnie Smith [place] [employer]ANNING ENGINEER [facility] [employer] 08-25-2017 07:54-0400 Body weight 75.3 kg Sydnie Boyle [facility] [employer] 08-25-2017 07:54-0400 Diastolic blood pressure 79 mm[Hg] Sydnie Boyle [facility] [employer] Comment on above: Patient Position: Sitting; Cuff Location : Left Arm; Cuff Size: Large 08-25-2017 07:54-0400 Heart rate 91 /min Sydnie Boyle [facility] [employer] Comment on above: Pattern: Regular 08-25-2017 07:54-0400 Systolic blood pressure 115 mm[Hg] Sydnie Boyle LPN [facility], [facility] [employer], [employer]. Comment on above: Patient Position: Sitting; Cuff Location : Left Arm; Cuff Size: Large 05-05-2017 09:26-0500 Body height 157.48 cm Sydnie Boyle [facility] [employer] 05-05-2017 09:26-0500 Body mass index (BMI) [Ratio] 30.54 kg/m2 Sydnie Boyle [facility] [employer], [employer]. 05-05-2017 09:26-0500 Body surface area Derived from formula 1.77 m2 Libra Tamar [facility] [employer] 05-05-2017 09:26-0500 Body weight 75.75 kg Sydnie Boyle [facility] [employer] 05-05-2017 09:26-0500 Diastolic blood pressure 83 mm[Hg] Sydnie Boyle [facility] [employer], [employer]. Comment on above: Patient Position: Sitting; Cuff Location : Left Arm; Cuff Size: Large 05-05-2017 09:26-0500 Heart rate 84 /min Sydnie Boyle [employer]ING ENGINE[employer] [facility] [employer] Comment on above: Pattern: Regular 05-05-2017 09:26-0500 Systolic blood pressure 124 mm[Hg] Sydnie Boyle [facility] [employer], [employer]. Comment on above: Patient Position: Sitting; Cuff Location : Left Arm; Cuff Size: Large 02-18-2017 11:03-0500 Body height 157.48 cm Sydnie Boyle [facility] [employer] 02-18-2017 11:03-0500 Body mass index (BMI) [Ratio] 29.81 kg/m2 Sydnie Boyle [facility] [employer], [employer]. 02-18-2017 11:03-0500 Body surface area Derived from formula 1.75 m2 Sydnie Boyle LPN [facility] [employer] 02-18-2017 11:03-0500 Body weight 73.94 kg Sydnie Boyle LPN [facility] [employer] 02-18-2017 11:03-0500 Diastolic blood pressure 79 mm[Hg] Sydnie Boyle LPN [facility] [employer] Comment on above: Patient Position: Sitting; Cuff Location : Left Arm; Cuff Size: Large 02-18-2017 11:03-0500 Heart rate 82 /min Sydnie Boyle LPN [facility] [employer] Comment on above: Pattern: Regular 02-18-2017 11:03-0500 Systolic blood pressure 121 mm[Hg] Sydnie Boyle LPN [facility] [employer] Comment on above: Patient Position: Sitting; Cuff Location : Left Arm; Cuff Size: Large 07-15-2016 08:05-0400 Body height 157.48 cm Sydnie Boyle [facility] [employer] 07-15-2016 08:05-0400 Body mass index (BMI) [Ratio] 30.73 kg/m2 Sydnie Boyle [employer]ING ENGINEER [place] [facility] [employer] 07-15-2016 08:05-0400 Body surface area Derived from formula 1.78 m2 Sydnie Boyle [employer]AC[employer]ANNING ENGINEER [place] [facility] [employer] 07-15-2016 08:05-0400 Body weight 76.2 kg Sydnie Boyle [facility] [employer] 07-15-2016 08:05-0400 Diastolic blood pressure 84 mm[Hg] Sydnie Boyle [employer]AC[employer]ING ENGINEER [facility] [employer] Comment on above: Patient Position: Sitting; Cuff Location : Left Arm; Cuff Size: Large 07-15-2016 08:05-0400 Heart rate 73 /min Sydnie Boyle [facility] [employer] [facility] Comment on above: Pattern: Regular 07-15-2016 08:05-0400 Systolic blood pressure 133 mm[Hg] Sydnie Boyle [employer]AC[employer]ING ENGINEER [facility].; [employer], [employer]. Comment on above: Patient Position: Sitting; Cuff Location : Left Arm; Cuff Size: Large 01-15-2016 08:35-0500 Body height 157.48 cm Sydnie Boyle [facility] [employer], [employer]. 01-15-2016 08:35-0500 Body mass index (BMI) [Ratio] 30.73 kg/m2 Sydnie Boyle [facility] [employer], [employer]. 01-15-2016 08:35-0500 Body surface area Derived from formula 1.78 m2 Sydnie Boyle [employer]AC[employer]ING ENGINEER [facility] [employer], [employer]. 01-15-2016 08:35-0500 Body weight 76.2 kg Sydnie Boyle [facility] [employer], [employer]. 01-15-2016 08:35-0500 Diastolic blood pressure 85 mm[Hg] Sydnie Boyle [facility] [employer], [employer]. Comment on above: Patient Position: Sitting; Cuff Location : Left Arm; Cuff Size: Large 01-15-2016 08:35-0500 Heart rate 71 /min Sydnie Boyle [facility]. Comment on above: Pattern: Regular 01-15-2016 08:35-0500 Systolic blood pressure 137 mm[Hg] Sydnie Boyle [employer]AC[employer]ING ENGINEER [facility] [employer], [employer]. Comment on above: Patient Position: Sitting; Cuff Location : Left Arm; Cuff Size: Large 12-22-2015 09:49-0400 Body height 157.48 cm Michelle Mirtha Lyndsey [facility] [employer], [employer] 12-22-2015 09:49-0400 Body mass index (BMI) [Ratio] 31.09 kg/m2 Michelle Solorio [facility], [employer].; [facility] 12-22-2015 09:49-0400 Body surface area Derived from formula 1.78 m2 Michelle Shannon Lyndsey [facility], [facility].; [place] [employer] 12-22-2015 09:49-0400 Body temperature 97.5 [degF] Michelle Shannon Lyndsey [facility], [facility].; [employer]. Comment on above: Method: Tympanic 12-22-2015 09:49-0400 Body weight 77.11 kg Michelle Zendejaslabach [facility], [facility].; [employer]. 12-22-2015 09:49-0400 Diastolic blood pressure 85 mm[Hg] Michelle [facility]ach [facility].; [employer]. Comment on above: Patient Position: Sitting; Cuff Location : Left Arm; Cuff Size: Standard 12-22-2015 09:49-0400 Heart rate 76 /min Michelle Shannon Lyndsey [facility], [facility].; [employer]. Comment on above: Pattern: Regular 12-22-2015 09:49-0400 Inhaled oxygen concentration 20 % [facility] Shannon [facility].; [employer]. Comment on above: Room air 12-22-2015 09:49-0400 Inhaled oxygen concentration 21 % Michelle Shannon Lyndsey [facility].; [employer]. Comment on above: Room air 12-22-2015 09:49-0400 SaO2% (BldA) [Mass fraction] 97 % Michelle Shannon Lyndsey [facility].; [employer]. 12-22-2015 09:49-0400 Systolic blood pressure 138 mm[Hg] Michelle Shannon Lyndsey [facility] [employer]. Comment on above: Patient Position: Sitting; Cuff Location : Left Arm; Cuff Size: Standard 07-10-2015 13:52-0400 Body height 157.48 cm Glenna Bill AJ Work Phone: [facility]. 07-10-2015 13:52-0400 Body mass index (BMI) [Ratio] 30.18 kg/m2 Glenna Bill LPN Work Phone: [facility].; [facility]. 07-10-2015 13:52-0400 Body surface area Derived from formula 1.76 m2 Glenna Bill LPN Work Phone: [facility].; [facility]. 07-10-2015 13:52-0400 Body weight 74.84 kg Glenna Bill LPN Work Phone: [facility].; [facility]. 07-10-2015 13:52-0400 Diastolic blood pressure 82 mm[Hg] Glenna Bill LPN Work Phone: [employer]; [facility]. Comment on above: Patient Position: Sitting; Cuff Location : Left Arm; Cuff Size: Large 07-10-2015 13:52-0400 Heart rate 77 /min Glenna Bill LPN Work Phone: [employer]; [facility]. Comment on above: Pattern: Regular 07-10-2015 13:52-0400 Systolic blood pressure 118 mm[Hg] Glenna Khan LPN Work Phone: [employer]; [facility]. Comment on above: Patient Position: Sitting; Cuff Location : Left Arm; Cuff Size: Large 05-14-2015 11:32-0400 Body temperature 98.3 [degF] Chrissie Vasquez RN [facility].; [facility]. Comment on above: Method: Tympanic 05-14-2015 11:32-0400 Body weight 74.84 kg Chrissie Vasquez RN [facility].; [facility]. 05-14-2015 11:32-0400 Diastolic blood pressure 85 mm[Hg] Chrissie Vasquez RN [facility].; [facility]. Comment on above: Patient Position: Sitting; Cuff Location : Right Arm; Cuff Size: Standard 05-14-2015 11:32-0400 Heart rate 69 /min Chrissie Vasquez RN [employer] [facility]. Comment on above: Pattern: Regular 05-14-2015 11:32-0400 Systolic blood pressure 136 mm[Hg] Chrissie Vasquez RN [employer].; [facility]. Comment on above: Patient Position: Sitting; Cuff Location : Right Arm; Cuff Size: Standard 01-09-2015 08:07-0500 Body height 158.75 cm Glenna Bill [employer]INE[employer] Work Phone: [facility].; [facility]. 01-09-2015 08:07-0500 Body mass index (BMI) [Ratio] 29.59 kg/m2 [email or web address] Work Phone: [facility].; [facility]. 01-09-2015 08:07-0500 Body surface area Derived from formula 1.77 m2 [email or web address]INEER Work Phone: [facility].; [facility]. 01-09-2015 08:07-0500 Body weight 74.56 kg Glenna Bill [employer]AC[employer]ANNING ENGINEER Work Phone: [employer].; [facility]. 01-09-2015 08:07-0500 Diastolic blood pressure 79 mm[Hg] Glenna Bill [employer]ING ENGINEER Work Phone: [employer].; [facility]. Comment on above: Patient Position: Sitting; Cuff Location : Left Arm; Cuff Size: Standard 01-09-2015 08:07-0500 Heart rate 71 /min [email or web address] ENGINEER Work Phone: [facility].; [facility]. Comment on above: Pattern: Regular 01-09-2015 08:07-0500 Systolic blood pressure 122 mm[Hg] Glenna Bill [employer]AC[employer]ING ENGINEER Work Phone: [facility].; [facility]. Comment on above: Patient Position: Sitting; Cuff Location : Left Arm; Cuff Size: Standard 07-04-2014 10:12-0400 Body height 158.75 cm Chrissie Vasquez RN [facility] [employer] 07-04-2014 10:12-0400 Body mass index (BMI) [Ratio] 29.05 kg/m2 Chrissie Vasquez RN [facility] [employer] 07-04-2014 10:12-0400 Body surface area Derived from formula 1.76 m2 Chrissie Vasquez RN [employer].; [employer]. 07-04-2014 10:120400 Body weight 73.2 kg Chrissie Vasquez RN [place] [facility] [employer]. 07-04-2014 10:12-0400 Diastolic blood pressure 80 mm[Hg] Chrissie Vasquez RN [place] [employer] [facility] [employer]. Comment on above: Patient Position: Sitting; Cuff Location : Left Arm; Cuff Size: Standard 07-04-2014 10:12-0400 Heart rate 67 /min Chrissie Vasquez RN [facility] [employer] [facility] [employer]. Comment on above: Pattern: Regular 07-04-2014 10:12-0400 Systolic blood pressure 134 mm[Hg] Chrissie Vasquez RN [facility] [employer] [facility] [employer]. Comment on above: Patient Position: Sitting; Cuff Location : Left Arm; Cuff Size: Standard 01-03-2014 09:24-0500 Body height 158.75 cm Tami Gil RN Work Phone: [employer].; [facility]. 01-03-2014 09:24-0500 Body mass index (BMI) [Ratio] 28.8 kg/m2 Tami Gil RN Work Phone: [employer] [employer]. 01-03-2014 09:24-0500 Body surface area Derived from formula 1.75 m2 Tami Gil RN Work Phone: [facility].; [facility]. 01-03-2014 09:24-0500 Body weight 72.58 kg Tami Gil RN Work Phone: [employer].; [facility] 01-03-2014 09:24-0500 Diastolic blood pressure 71 mm[Hg] Tami Gil RN Work Phone: [employer].; [facility]. Comment on above: Patient Position: Sitting; Cuff Location : Left Arm; Cuff Size: Large 01-03-2014 09:24-0500 Heart rate 70 /min Tami Gil RN Work Phone: [facility].; [facility]. Comment on above: Pattern: Regular 01-03-2014 09:24-0500 Systolic blood pressure 113 mm[Hg] Tami Gil RN Work Phone: [facility].; [facility]. Comment on above: Patient Position: Sitting; Cuff Location : Left Arm; Cuff Size: Large 06-28-2013 08:59-0400 Body height 158.75 cm Tami Gil RN Work Phone: [facility].; [facility] 06-28-2013 08:59-0400 Body mass index (BMI) [Ratio] 28.44 kg/m2 Tami Gil RN Work Phone: [facility].; [facility]. 06-28-2013 08:59-0400 Body surface area Derived from formula 1.74 m2 Tami Gil RN Work Phone: [facility].; [facility]. 06-28-2013 08:59-0400 Body weight 71.67 kg Tami Gil RN Work Phone: [facility].; [facility]. 06-28-2013 08:59-0400 Diastolic blood pressure 67 mm[Hg] Tami Gil RN Work Phone: [facility].; [facility]. Comment on above: Patient Position: Sitting; Cuff Location : Left Arm; Cuff Size: Large 06-28-2013 08:59-0400 Heart rate 70 /min Tami Gil RN Work Phone: [employer].; [facility]. Comment on above: Pattern: Regular 06-28-2013 08:59-0400 Systolic blood pressure 108 mm[Hg] Tami Gil RN Work Phone: [employer].; [facility]. Comment on above: Patient Position: Sitting; Cuff Location : Left Arm; Cuff Size: Large 12-28-2012 08:46-0400 Body height 158.75 cm Tami Gil RN Work Phone: [employer].; [facility]. 12-28-2012 08:46-0400 Body mass index (BMI) [Ratio] 29.7 kg/m2 Tami Gil RN Work Phone: [employer].; [facility]. 12-28-2012 08:46-0400 Body surface area Derived from formula 1.77 m2 Tami Gil RN Work Phone: [employer].; [facility]. 12-28-2012 08:46-0400 Body weight 74.84 kg Tami Gil RN Work Phone: [employer].; [facility]. 12-28-2012 08:46-0400 Diastolic blood pressure 83 mm[Hg] Tami Gil RN Work Phone: [employer].; [facility]. Comment on above: Patient Position: Sitting; Cuff Location : Right Arm; Cuff Size: Large 12-28-2012 08:46-0400 Heart rate 75 /min Tami Gil RN Work Phone: [employer].; [facility]. Comment on above: Pattern: Regular 12-28-2012 08:46-0400 Systolic blood pressure 126 mm[Hg] Tami Gil RN Work Phone: [employer]; [facility]. Comment on above: Patient Position: Sitting; Cuff Location : Right Arm; Cuff Size: Large 09-16-2012 18:25-0400 Body height 158.75 cm Glenna Quintanillay [employer]ING ENGINEER Work Phone: [employer].; [facility]. 09-16-2012 18:25-0400 Body mass index (BMI) [Ratio] 28.62 kg/m2 Glenna Quintanillay [employer]ING ENGINEER Work Phone: [employer].; [facility]. 09-16-2012 18:25-0400 Body surface area Derived from formula 1.74 m2 Glenna Quintanillay [employer]AC[employer]ANNING ENGINEER Work Phone: [employer]; [facility]. 09-16-2012 18:25-0400 Body weight 72.12 kg Glenna Quintanillay [employer]AC[employer]ING ENGINEER Work Phone: [employer].; [facility]. 09-16-2012 18:25-0400 Diastolic blood pressure 72 mm[Hg] Glenna Bill [employer]AC[employer]ANNING ENGINEER Work Phone: [employer]; [facility]. Comment on above: Patient Position: Sitting; Cuff Location : Left Arm; Cuff Size: Standard 09-16-2012 18:25-0400 Heart rate 69 /min Glenna Bill [employer]AC[employer] PLANNING ENGINEER Work Phone: [employer]; [facility]. Comment on above: Pattern: Regular 09-16-2012 18:25-0400 Systolic blood pressure 113 mm[Hg] Glenna Bill [employer]AC[employer] PLANNING ENGINEER Work Phone: [facility].; [facility]. Comment on above: Patient Position: Sitting; Cuff Location : Left Arm; Cuff Size: Standard 06-29-2012 11:04-0400 Body height 158.75 cm Michelle Benjamin MD Work Phone: [employer]; [facility]. 06-29-2012 11:04-0400 Body mass index (BMI) [Ratio] 29.7 kg/m2 Michelle Benjamin MD Work Phone: [facility] [employer]. 06-29-2012 11:04-0400 Body surface area Derived from formula 1.77 m2 Michelle Benjamin MD Work Phone: [employer].; [employer]. 06-29-2012 11:04-0400 Body weight 74.84 kg Michelle Benjamin MD Work Phone: [employer].; [employer]. 06-29-2012 11:04-0400 Diastolic blood pressure 84 mm[Hg] Michelle Benjamin MD Work Phone: [employer].; [facility]. Comment on above: Patient Position: Sitting; Cuff Location : Right Arm; Cuff Size: Standard 06-29-2012 11:04-0400 Heart rate 69 /min Michelle Benjamin MD Work Phone: [place] [employer]; [facility]. Comment on above: Pattern: Regular 06-29-2012 11:04-0400 Systolic blood pressure 134 mm[Hg] Michelle Benjamin MD Work Phone: [employer].; [facility]. Comment on above: Patient Position: Sitting; Cuff Location : Right Arm; Cuff Size: Standard 12-23-2011 08:58-0400 Body height 158.75 cm [facility] Work Phone: [employer].; [employer] 12-23-2011 08:58-0400 Body mass index (BMI) [Ratio] 30.96 kg/m2 [facility] Work Phone: [employer].; [employer] 12-23-2011 08:58-0400 Body surface area Derived from formula 1.8 m2 [facility] Work Phone: [employer].; [employer] 12-23-2011 08:58-0400 Body weight 78.02 kg Glenna Khan LPN Work Phone: [facility].; [facility]. 12-23-2011 08:58-0400 Diastolic blood pressure 77 mm[Hg] Glenna Khan [employer]AC[employer]ING ENGINEER Work Phone: [employer].; [facility]. Comment on above: Patient Position: Sitting; Cuff Location : Left Arm; Cuff Size: Standard 12-23-2011 08:58-0400 Heart rate 65 /min Glenna Khan LPN Work Phone: [facility].; [facility]. Comment on above: Pattern: Regular 12-23-2011 08:58-0400 Systolic blood pressure 130 mm[Hg] Glenna Khan LPN Work Phone: [facility].; [facility]. Comment on above: Patient Position: Sitting; Cuff Location : Left Arm; Cuff Size: Standard 06-24-2011 10:05-0400 Body height 158.75 cm Tami Gil RN Work Phone: [facility].; [employer] 06-24-2011 10:05-0400 Body mass index (BMI) [Ratio] 31.32 kg/m2 Tami Gil RN Work Phone: [facility].; [facility] 06-24-2011 10:05-0400 Body surface area Derived from formula 1.81 m2 Tami Gil RN Work Phone: [facility].; [facility]. 06-24-2011 10:05-0400 Body weight 78.93 kg Tami Gil RN Work Phone: [facility].; [employer] 06-24-2011 10:05-0400 Diastolic blood pressure 77 mm[Hg] Tami Gil RN Work Phone: [facility].; [facility]. Comment on above: Patient Position: Sitting; Cuff Location : Left Arm; Cuff Size: Standard 06-24-2011 10:05-0400 Heart rate 67 /min Tami Gil RN Work Phone: [employer].; [facility]. Comment on above: Pattern: Regular 06-24-2011 10:05-0400 Systolic blood pressure 122 mm[Hg] Tami Gil RN Work Phone: [employer].; [facility]. Comment on above: Patient Position: Sitting; Cuff Location : Left Arm; Cuff Size: Standard 12-24-2010 08:04-0400 Body height 158.75 cm Tami Gil RN Work Phone: [employer].; [facility]. 12-24-2010 08:04-0400 Body mass index (BMI) [Ratio] 30.24 kg/m2 Tami Gil RN Work Phone: [employer].; [facility]. 12-24-2010 08:04-0400 Body surface area Derived from formula 1.79 m2 Tami Gil RN Work Phone: [facility].; [facility]. 12-24-2010 08:04-0400 Body weight 76.2 kg Tami Gil RN Work Phone: [employer].; [facility]. 12-24-2010 08:04-0400 Diastolic blood pressure 87 mm[Hg] Tami Gil RN Work Phone: [employer].; [facility]. Comment on above: Patient Position: Sitting; Cuff Location : Left Arm; Cuff Size: Standard 12-24-2010 08:04-0400 Heart rate 74 /min Tami Gil RN Work Phone: [facility].; [facility]. Comment on above: Pattern: Regular 12-24-2010 08:04-0400 Systolic blood pressure 131 mm[Hg] Tami Gil RN Work Phone: [facility].; [facility]. Comment on above: Patient Position: Sitting; Cuff Location : Left Arm; Cuff Size: Standard 12-17-2010 14:48-0400 Body height 158.75 cm Tami Gil RN Work Phone: [employer].; [facility]. 12-17-2010 14:48-0400 Body mass index (BMI) [Ratio] 30.42 kg/m2 Tami Gil RN Work Phone: [employer].; [facility]. 12-17-2010 14:48-0400 Body surface area Derived from formula 1.79 m2 Tami Gil RN Work Phone: [employer].; [facility]. 12-17-2010 14:48-0400 Body weight 76.66 kg Tami Gil RN Work Phone: [employer].; [facility]. 12-17-2010 14:48-0400 Diastolic blood pressure 86 mm[Hg] Tami Gil RN Work Phone: [employer].; [facility]. Comment on above: Patient Position: Sitting; Cuff Location : Left Arm; Cuff Size: Standard 12-17-2010 14:48-0400 Heart rate 64 /min Tami Gil RN Work Phone: [employer].; [facility]. Comment on above: Pattern: Regular 12-17-2010 14:48-0400 Systolic blood pressure 150 mm[Hg] Tami Gil RN Work Phone: [employer].; [facility]. Comment on above: Patient Position: Sitting; Cuff Location : Left Arm; Cuff Size: Standard 06-25-2010 10:55-0400 Body height 158.75 cm Tami Gil RN Work Phone: [employer].; [facility]. 06-25-2010 10:55-0400 Body mass index (BMI) [Ratio] 29.34 kg/m2 Tami Gil RN Work Phone: [employer].; [employer] 06-25-2010 10:55-0400 Body surface area Derived from formula 1.76 m2 Tami Gil RN Work Phone: [place] [employer] 06-25-2010 10:55-0400 Body weight 73.94 kg Tami Gil RN Work Phone: [employer].; [employer] 06-25-2010 10:55-0400 Diastolic blood pressure 91 mm[Hg] Tami Gil RN Work Phone: [employer].; [facility]. Comment on above: Patient Position: Sitting; Cuff Location : Left Arm; Cuff Size: Standard 06-25-2010 10:55-0400 Heart rate 62 /min Tami Gil RN Work Phone: [employer].; [facility]. Comment on above: Pattern: Regular 06-25-2010 10:55-0400 Systolic blood pressure 159 mm[Hg] Tami Gil RN Work Phone: [employer].; [facility]. Comment on above: Patient Position: Sitting; Cuff Location : Left Arm; Cuff Size: Standard 12-27-2009 12:02-0400 Body height 158.75 cm Michelle Benjamin MD Work Phone: [employer] 12-27-2009 12:02-0400 Body mass index (BMI) [Ratio] 28.8 kg/m2 Michelle Benjamin MD Work Phone: [employer] 12-27-2009 12:02-0400 Body surface area Derived from formula 1.75 m2 Michelle Benjamin MD Work Phone: [employer].; [facility]. 12-27-2009 12:02-0400 Body weight 72.58 kg Michelle Benjamin MD Work Phone: [employer] 12-27-2009 12:02-0400 Diastolic blood pressure 86 mm[Hg] Michelle Benjamin MD Work Phone: [facility]; [facility] Comment on above: Patient Position: Sitting; Cuff Location : Left Arm; Cuff Size: Standard 12-27-2009 12:02-0400 Heart rate 71 /min Michelle Benjamin MD Work Phone: [facility] Comment on above: Pattern: Regular 12-27-2009 12:02-0400 Systolic blood pressure 143 mm[Hg] Michelle Benjamin MD Work Phone: [facility] Comment on above: Patient Position: Sitting; Cuff Location : Left Arm; Cuff Size: Standard Encounters Encounter Date Encounter Type Care Provider Facility Start: 01-04-2025 ambulatory [facility] Facility:[facility] Start: 12-23-2024 ambulatory [facility] Facility:[facility] Start: 12-21-2024 End: 12-21-2024 [facility] Start: 12-16-2024 End: 12-16-2024 ambulatory [facility] Start: 12-09-2024 End: 12-09-2024 ambulatory [facility] Facility:[facility] Start: 10-27-2024 End: 10-27-[address] Chente Whtimore MD -[facility] Start: 10-27-2024 End: 10-27-[address] Moose Dempsey MD Work Phone: [facility] Start: 10-07-2024 Encounter for other preprocedural examination [facility] Start: 10-04-2024 End: 11-25-2024 ambulatory [facility] Start: 09-29-2024 End: 09-29-[address] Chente Whitmore MD -[facility] Start: 09-29-2024 End: 09-29-[address] Moose Dempsey MD Work Phone: -[facility] Start: 09-19-2024 End: 09-19-2024 Telephone follow-up Moose Dempsey MD Work Phone: [facility] Start: 09-18-2024 End: 09-18-2024 Emergency department patient visit Dr. Moose Dempsey MD Work Phone: -Emergency Department Work Phone: Start: 09-16-2024 Non-patient / Non-visit Leeanna VALADEZ -[facility] Start: 09-15-2024 Non-patient / Non-visit Dr. Piotr Hoffman [facility] Work Phone: Start: 09-14-2024 [facility] Start: 09-14-2024 End: 09-15-2024 ambulatory [facility] Facility:[facility] Start: 09-14-2024 End: 09-15-2024 Evaluation and management of inpatient Dr. Guerrero Valdivia MD -[facility] Work Phone: Start: 09-14-2024 End: 09-15-[address] Moose Dempsey MD Work Phone: -Medical Surgical 3 Start: 09-14-2024 ambulatory [facility] Facility:[facility] Start: 09-14-2024 Non-patient / Non-visit Dr. Guerrero cronin MD -[facility] Start: 09-08-2024 End: 09-08-2024 Orders Moose Dempsey MD Work Phone: [facility] Start: 09-01-2024 End: 09-01-[address] Guerrero Valdivia MD -[facility] Work Phone: Start: 09-01-2024 End: 09-01-[address] Moose Dempsey MD Work Phone: -[facility] Start: 09-01-2024 End: 09-01-2024 Non-patient / Non-visit Dr. Chente Whitmore MD -[facility] Work Phone: Start: 08-30-2024 End: 08-30-2024 Office outpatient visit 15 minutes Moose Dempsey MD Work Phone: [employer] Start: 08-30-2024 End: 08-30-2024 Physical examination Moose Dempsey MD Work Phone: [employer]; [facility] Start: 07-28-2024 End: 07-28-[address] Chente Whitmore MD -[facility] Start: 07-28-2024 End: 07-28-[address] Moose Dempsey MD Work Phone: [facility] Work Phone: Start: 07-22-2024 End: 07-22-[address] Moose Dempsey MD Work Phone: [facility] Work Phone: Start: 07-22-2024 End: 07-22-[address] Gu[facility] Work Phone: Start: 07-22-2024 End: 07-22-2024 ambulatory Guerrero Valdivia Facility:[facility] Start: 07-08-2024 End: 07-08-[address] Guerrero Valdivia MD -[facility] Work Phone: Start: 07-08-2024 End: 07-08-2024 ambulatory Moose Dempsey Facility:[facility] Start: 04-26-2024 End: 04-26-2024 Office outpatient visit 25 minutes Moose Dempsey MD Work Phone: [employer] Start: 10-28-2023 End: 10-28-2023 Periodic preventive med est patient 65yrs& older Moose Dempsey MD Work Phone: [facility]. Start: 10-21-2023 End: 10-21-2023 Orders Moose Dempsey MD Work Phone: [employer] Start: 08-25-2023 End: 08-25-2023 Orders Moose Dempsey MD Work Phone: [facility]. Start: 08-10-2023 End: 08-10-2023 Office outpatient visit 10 minutes Moose Dempsey MD Work Phone: [facility]. Start: 08-10-2023 Review Moose Dempsey MD Work Phone: [facility]. Start: 06-18-2023 End: 06-18-2023 Orders Moose Dempsey MD Work Phone: [facility]. Start: 04-28-2023 End: 04-28-2023 Office outpatient visit 15 minutes Moose Dempsey MD Work Phone: [facility]. Start: 03-24-2023 End: 03-24-2023 Orders Moose Dempsey MD Work Phone: [facility]. Start: 02-02-2023 End: 02-02-2023 Office outpatient visit 15 minutes Moose Dempsey MD Work Phone: [facility]. Start: 10-21-2022 End: 10-21-2022 Periodic preventive med est patient 65yrs& older Moose Dempsey MD Work Phone: [facility]. Start: 10-14-2022 End: 10-14-2022 Orders Moose Dempsey MD Work Phone: [facility]. Start: 09-11-2022 End: 09-11-2022 Orders Moose Dempsey MD Work Phone: [facility]. Start: 04-09-2022 End: 04-09-2022 Orders Moose Dempsey MD Work Phone: [facility]. Start: 04-01-2022 End: 04-01-2022 Office outpatient visit 15 minutes Moose Dempsey MD Work Phone: [facility]. Start: 09-24-2021 End: 09-24-2021 Periodic preventive med est patient 65yrs& older Moose Dempsey MD Work Phone: [facility]. Start: 09-17-2021 End: 09-17-2021 Orders Moose Dempsey MD Work Phone: [facility]. Start: 08-07-2021 End: 08-07-2021 Orders Moose Dempsey MD Work Phone: [facility]. Start: 05-14-2021 End: 05-14-2021 Orders Moose Dempsey MD Work Phone: [facility]. Start: 03-20-2021 End: 03-20-2021 Office outpatient visit 25 minutes Moose Dempsey MD Work Phone: [facility]. Start: 02-25-2021 End: 02-25-2021 Telephone follow-up Moose Dempsey MD Work Phone: [facility]. Start: 09-18-2020 End: 09-18-2020 Periodic preventive med est patient 65yrs& older Moose Dempsey MD Work Phone: [facility]. Start: 08-02-2020 End: 08-03-2020 Orders Moose Dempsey MD Work Phone: [facility]. Start: 07-24-2020 End: 07-24-2020 Orders Moose Dempsey MD Work Phone: [facility]. Start: 03-20-2020 End: 03-20-2020 Office outpatient visit 25 minutes Moose Dempsey MD Work Phone: [employer] Start: 01-24-2020 End: 01-24-2020 Telephone follow-up Moose Dempsey MD Work Phone: [facility]. Start: 09-13-2019 End: 09-13-2019 Office outpatient visit 25 minutes Moose Dempsey MD Work Phone: [employer] Start: 08-01-2019 End: 08-01-2019 Office outpatient visit 15 minutes Moose Dempsey MD Work Phone: [facility]. Start: 07-05-2019 End: 07-05-2019 Orders Moose Dempsey MD Work Phone: [facility]. Start: 03-29-2019 End: 03-29-2019 Periodic preventive med est patient 65yrs& older Moose Dempsey MD Work Phone: [facility]. Start: 03-22-2019 End: 03-22-2019 Orders Moose Dempsey MD Work Phone: [facility]. Start: 03-14-2019 End: 03-14-2019 Orders Moose Dempsey MD Work Phone: [facility]. Start: 03-11-2019 End: 03-11-2019 Office outpatient visit 15 minutes Moose Dempsey MD Work Phone: [facility]. Start: 03-07-2019 End: 03-07-2019 Orders Moose Dempsey MD Work Phone: [facility]. Start: 11-03-2018 End: 11-03-2018 Orders Moose Dempsey MD Work Phone: [facility]. Start: 08-27-2018 End: 08-27-2018 Office outpatient visit 15 minutes Moose Dempsey MD Work Phone: [facility]. Start: 03-16-2018 End: 03-16-2018 Office outpatient visit 15 minutes Moose Dempsey MD Work Phone: [facility]. Start: 02-26-2018 End: 02-26-2018 Office outpatient visit 15 minutes Moose Dempsey MD Work Phone: [facility]. Start: 02-19-2018 End: 02-19-2018 Orders Moose Dempsey MD Work Phone: [facility]. Start: 09-28-2017 End: 09-28-2017 Orders Moose Dempsey MD Work Phone: [facility]. Start: 08-25-2017 End: 08-25-2017 Office outpatient visit 15 minutes Moose Dempsey MD Work Phone: [facility]. Start: 05-05-2017 End: 05-05-2017 Office outpatient visit 15 minutes Moose Dempsey MD Work Phone: [facility]. Start: 02-18-2017 End: 02-18-2017 Periodic preventive med est patient 65yrs& older Moose Dempsey MD Work Phone: [facility]. Start: 01-09-2017 End: 01-09-2017 Orders Moose Dempsey MD Work Phone: [facility]. Start: 11-18-2016 End: 11-18-2016 Orders Moose Dempsey MD Work Phone: [facility]. Start: 07-15-2016 End: 07-15-2016 Patient encounter procedure Moose Dempsey MD Work Phone: [facility]. Start: 01-15-2016 End: 01-15-2016 Office outpatient visit 15 minutes Moose Dempsey MD Work Phone: [facility]. Start: 01-08-2016 End: 01-08-2016 Orders Moose Dempsey MD Work Phone: [facility]. Start: 12-22-2015 End: 12-22-2015 Office outpatient visit 15 minutes Moose Dempsey MD Work Phone: [facility]. Start: 07-10-2015 End: 07-11-2015 Periodic preventive med est patient 65yrs& older Moose Dempsey MD Work Phone: [facility]. Start: 05-14-2015 End: 05-14-2015 Office outpatient visit 10 minutes Moose Dempsey MD Work Phone: [facility]. Start: 01-09-2015 End: 01-09-2015 Office outpatient visit 15 minutes Moose Dempsey MD Work Phone: [facility]. Start: 01-08-2015 End: 01-08-2015 Historical Summary Moose Dempsey MD Work Phone: [facility]. Start: 01-02-2015 End: 01-02-2015 Orders Moose Dempsey MD Work Phone: [employer] Start: 07-04-2014 End: 07-04-2014 Periodic preventive med est patient 65yrs& older Moose Dempsey MD Work Phone: [employer] Start: 01-03-2014 End: 01-03-2014 Office outpatient visit 15 minutes Moose Dempsey MD Work Phone: [employer] Start: 12-27-2013 End: 12-27-2013 Orders Moose Dempsey MD Work Phone: [employer] Start: 12-26-2013 End: 12-26-2013 Orders Moose Dempsey MD Work Phone: [employer] Start: 06-28-2013 End: 06-28-2013 Patient encounter procedure Moose Dempsey MD Work Phone: [employer] Start: 12-28-2012 End: 12-28-2012 Patient encounter procedure Moose Dempsey MD Work Phone: [employer] Start: 12-21-2012 End: 12-21-2012 Orders Moose Dempsey MD Work Phone: [employer] Start: 09-16-2012 End: 09-16-2012 Patient encounter procedure Moose Dempsey MD Work Phone: [employer] Start: 06-29-2012 End: 06-30-2012 Manual pelvic examination Moose Dempsey MD Work Phone: [employer]; [employer] Start: 06-29-2012 End: 06-30-2012 Patient encounter procedure Moose Dempsey MD Work Phone: [employer] Start: 12-23-2011 End: 12-23-2011 Patient encounter procedure Moose Dempsey MD Work Phone: [employer] Start: 06-24-2011 End: 06-24-2011 Patient encounter procedure Moose Dempsey MD Work Phone: [employer] Start: 06-24-2011 End: 06-24-2011 Routine gynecological examination Moose Dempsey MD Work Phone: [employer]; [facility]. Start: 12-24-2010 End: 12-24-2010 Patient encounter procedure Moose Dempsey MD Work Phone: [employer] Start: 12-19-2010 End: 12-19-2010 Orders Moose Dempsey MD Work Phone: [employer] Start: 12-17-2010 End: 12-17-2010 Patient encounter procedure Moose Dempsey MD Work Phone: [employer] Start: 06-25-2010 End: 06-25-2010 Patient encounter procedure Moose Dempsey MD Work Phone: [employer] Start: 06-25-2010 End: 06-25-2010 Routine gynecological examination Moose Dempsey MD Work Phone: [employer]; [facility]. Start: 12-27-2009 End: 12-27-2009 Patient encounter procedure Moose Dempsey MD Work Phone: [employer] Start: 12-25-2009 End: 12-25-2009 Historical Summary Moose Dempsey MD Work Phone: [employer] Start: 12-20-2009 End: 12-20-2009 Orders Moose Dempsey MD Work Phone: [facility] Procedures Date Procedure Procedure Detail Performing Clinician Start: 09-29-2024 X-ray of cervical spine Dr. Moose Dempsey MD Work Phone: Start: 09-18-[address] Moose Dempsey MD Work Phone: Start: 09-15-[address] Moose [...] HAVtotal antibody results to IgM (e.g., panel #443327 HAVAntibody w/ Rfx).Performed at: [address] [id number] Director: Charles Souza PhD, Phone: [phone] Start: 09-01-2024 PCR test for HIV 1 Dr. Mooes Dempsey MD Work Phone: Comment on above: [...] End: 10-14-2022 Lab findings surveillance Sydnie perales [employer]ING ENGINEER Comment on above: 112 in CMP Start: 10-14-2022 End: 10-14-2022 Lipid panel results documented & reviewed Sydnie Boyle [employer]AC[employer] PLANNING ENGINEER Start: 04-09-2022 End: 04-09-2022 Diagnostic mammography computer-aided detcj uni Moose Dempsey MD Work Phone: Comment on above: for 6month follow-up Start: 04-02-2022 End: 04-02-2022 Screening mammography Sydnie Boyle [employer]AC[employer] PLANNING ENGINEER Comment on above: Normal. Start: 09-24-2021 End: [...] 08-17-2019 End: 08-17-2019 Screening colonoscopy Sydnie Boyle [employer]AC[employer] PLANNING ENGINEER Comment on above: Pandiverticulosis, Steff Flores, repeat due in 5 years (2024). Start: [...] 07-31-2014 Ophthalmic examination and evaluation Sydnie Boyle MADAI Comment on above: marya Solis Start: 07-04-2014 [...] malignant neoplasm of large intestine Sydnie Boyle MADAI Comment on above: normal colonoscopy ( next due 2014) Start: 06-30-2005 End: 06-30-2005 Bone density scan Sydnie Boyle LP N Comment on above: Normal. Abdominal hysterectomy Sydnie Boyle CAPACITY PLANNING ENGINEER Comment on above: for fibroids, ovary intact Abdominal hysterectomy Dong Huitron [employer] PLANNING ENGINEER Comment on above: for fibroids, ovary intact Plan of Treatment Date Care Activity Detail Author Start: 11-15-2024 Patient encounter procedure Medical; [facility] Start: 15-Nov-2024 10:00-04:00 MD Moose Dempsey [facility] Start: 11-08-2024 Lipid panel LIPID PANEL (16539) Start: 08-Nov-2024 10:45-04:00 [facility] Start: 11-08-2024 Comprehensive metabolic panel CMP w/ GFR* (96686) Start: 08-Nov-2024 10:45-04:00 [facility] Start: 11-08-2024 Nursing evaluation of patient and report [facility] Start: 10-27-2024 X-ray of cervical spine Cerv Spine 2 or 3 Views [facility] Start: 10-27-2024 XR Cervical spine 2 or 3 Views [facility] Start: 09-29-2024 X-ray of cervical spine Cerv Spine 2 or 3 Views [facility] Start: 09-29-2024 XR Cervical spine 2 or 3 Views [facility] Start: 09-15-2024 Patient discharge [facility] Start: 09-15-2024 Application of device [facility] Start: 09-15-2024 Measuring intake and output [facility] Start: 09-15-2024 Catheterization of vein [facility] Start: 09-15-2024 Incentive spirometry [facility] Start: 09-15-2024 Measuring intake and output [facility] Start: 09-14-2024 Measuring intake and output [facility] Start: 09-14-2024 End: 09-14-2024 Incentive spirometry [facility] Start: 09-14-2024 Measuring intake and output [facility] Start: 09-14-2024 Following clinical pathway protocol [facility] Start: 09-14-2024 Application of intermittent pneumatic compression device [facility] Start: 09-14-2024 Allograft for spine surgery only structural SP BONE ALGRFT STRUCT ADD-ON [facility] Start: 09-14-2024 Anesthesia extensive spine & spinal cord ANESTH SPINE CORD SURGERY [facility] Start: 09-14-2024 Anterior instrumentation 2-3 vertebral segments INSERT SPINE FIXATION DEVICE [facility] Start: 09-14-2024 Arthrd ant interbody decompress cervical belw c2 ARTHRD ANT NTRBDY CERVICAL [facility] Start: 09-14-2024 Arthrd ant interdy cervcl belw c2 ea addl ntrspc ARTHRD ANT NTRBD CERVICAL EA [facility] Start: 09-14-2024 Oxygen therapy [facility] Start: 09-14-2024 Application of device [facility] Start: 09-14-2024 Measuring intake and output [facility] Start: 09-14-2024 Consultation [facility] Start: 09-14-2024 Admission procedure [facility] Start: 09-14-2024 Assessment of risk of venous thromboembolism [facility] Start: 09-14-2024 Following clinical pathway protocol [facility] Start: 09-14-2024 Introduction of urinary catheter [facility] Start: 09-14-2024 Neurovascular assessment [facility] Start: 09-14-2024 Patient education [facility] Start: 09-14-2024 Provision of activity privileges [facility] Start: 09-14-2024 Referral to occupational therapist [facility] Start: 09-14-2024 Referral to service [facility] Start: 09-14-2024 Taking patient vital signs [facility] Start: 09-14-2024 End: 09-14-2024 [facility] Start: 07-28-2024 X-ray of cervical spine Cerv Spine 4 or 5 Views [facility] Start: 07-28-2024 XR Cervical spine 4 or 5 Views [facility] Start: 04-26-2024 Patient encounter procedure [facility] [employer] Start: 10-28-2023 Patient encounter procedure Medical; PHYSICAL - AWV [facility] Start: 28-Oct-2023 08:40-04:00 MD Moose Dempsey Appointment Request [facility]. Start: 10-27-2023 Patient encounter procedure Medical; PHYSICAL - AWV [facility]. Start: 27-Oct-2023 09:10-04:00 MD Moose Dempsey Appointment Request [facility]. Start: 10-21-2023 Comprehensive metabolic panel CMP w/ GFR* (01677) Start: 21-Oct-2023 Request [facility].; [facility]. Start: 10-21-2023 Lipid panel LIPID PANEL (09205) Start: 21-Oct-2023 Request [facility].; [facility]. Start: 10-21-2023 Nursing evaluation of patient and report [employer] Start: 06-18-2023 Screening mammography bi 2-view breast inc cad Mammogram Bilateral Screening Digital w/CAD (29597) Start: 18-Jun-2023 Intent [facility].; [facility]. Start: 04-28-2023 Patient encounter procedure Medical; RTN OFFICE VISIT - 6 mos rtn [facility]. Start: 28-Apr-2023 9:00 MD Moose Dempsey Appointment Request [facility]. Start: 04-01-2022 End: 04-01-2022 Diagnostic mammography computer-aided detcj bi Mammogram Bilateral Diagnostic (17071) Date: 01-Apr-2022 [facility]. Start: 12-24-2010 Patient Education Rosacea *: acne rosacea Indication: Rosacea (Renamed from Acne erythematosa) Start: 24-Dec-2010 Instruction Type: Patient Education [employer] Electrocardiographic procedure [facility] Patient Education [facility] Work Phone: Patient referral [facility] Work Phone: Immunizations Immunization Date Immunization Notes Care Provider Fa cility 12-22-2020 COVID-Moderna (100 MCG/0.5 ML) Moose Dempsey MD Work Phone: [employer] [facility] 09-18-2020 tetanus toxoid, redu dinh diphtheria toxoid, and acellular pertussis vaccine, adsorbed Moose Dempsey MD Work Phone: [facility]; [facility] 05-02-2020 COVID-Moderna (100 MCG/0.5 ML) Moose Dempsey MD Work Phone: [facility]. 04-04-2020 COVID-Moderna (100 MCG/0.5 ML) Moose Dempsey MD Work Phone: [facility] 03-14-2020 zoster vaccine recombinant Moose Dempsey MD Work Phone: [facility]; [facility] 11-16-2019 zoster vaccine recombinant Moose Dempsey MD Work Phone: [facility]. 03-29-2019 Shingrix 50 MCG/0.5M L Intramuscular Suspension Reconstituted Moose Dempsey MD Work Phone: [facility]; [facility] Comment on above: Repeat in 2-6 months 02-18-2017 influenza, injectabl e, quadrivalent, contains preservative Moose Dempsey MD Work Phone: [facility]; [employer] [facility] Comment on above: Site: Left DeltoidVI S Given: * Influenza - Inactivated (10/06/14) 01-15-2016 unknown vaccine or i mmune globulin Moose Dempsey MD Work Phone: [facility] [employer]. 01-15-2016 influenza, injectabl e, quadrivalent, contains preservative Moose Dempsey MD Work Phone: [facility] [employer]. Comment on above: Site: Deltoid (Right )VIS Given: * Influenza - Inactivated (10/06/14) 07-10-2015 pneumococcal conjuga te vaccine, 13 valent Moose Dempsey MD Work Phone: [employer]; [employer] Comment on above: Site: Deltoid (Left) VIS Given: * Pneumococcal Conjugate (PCV13) (04/28/12) 01-09-2015 ADMINISTRATION OF INFLUENZA VIRUS VACCINE (G0008) Moose Dempsey MD Work Phone: [employer]; [facility]. 01-09-2015 influenza, seasonal, injectable Moose Dempsey MD Work Phone: [employer]; [facility]. Comment on above: Site: Deltoid (Left) VIS Given: * Inactivated Influenza (10/06/2014) 01-03-2014 ADMINISTRATION OF INFLUENZA VIRUS VACCINE (G0008) Moose Dempsey MD Work Phone: [employer]; [facility]. 01-03-2014 influenza, seasonal, injectable Moose Dempsey MD Work Phone: [employer]; [facility]. Comment on above: Site: Deltoid (Right )VIS Given: * Influenza, Inactivated () 06-28-2013 pneumococcal polysaccharide vaccine, 23 valent Moose Dempsey MD Work Phone: [employer]; [employer]. Comment on above: Site: Deltoid (Left) VIS Given: * Pneumococcal Polysaccharide (PPSV23) (12/05/08) 12-21-2012 influenza, seasonal, injectable Moose Dempsey MD Work Phone: [employer]; [facility]. Comment on above: Site: Deltoid (Left) VIS Given: * Inactivated Influenza Vaccine (10/10/08) * Inactivated Influenza Vaccine (09/24/10) * Influenza vaccine [id number], inactivated (09/01/2011) * VIS Given (Unspecified) 12-21-2012 IMMUNIZATION ADMIN (91612) Moose Dempsey MD Work Phone: [employer]; [facility]. 12-23-2011 influenza, seasonal, injectable Moose Dempsey MD Work Phone: [employer]; [employer]. Comment on above: Site: Deltoid (Left) VIS Given: * Inactivated Influenza Vaccine (10/10/08) * Inactivated Influenza Vaccine (09/24/10) * Influenza vaccine , inactivated (09/01/2011) * VIS Given (Unspecified) 12-23-2011 IMMUNIZATION ADMIN (71557) Moose Dempsey MD Work Phone: [employer]; [employer] 12-17-2010 influenza, seasonal, injectable Moose Dempsey MD Work Phone: [employer]; [facility]. Comment on above: Site: Deltoid (Right )VIS Given: * Inactivated Influenza Vaccine (10/10/08) * Inactivated Influenza Vaccine (09/24/10) * Inactivated Influenza Vaccine (09/24/10) * Inactivated Influenza Vaccine (09/24/10) * Inactivated Influenza Vaccine (09/24/10) * Inactivated Influenza Vaccine (09/24/10) * Inactivated Influenza Vaccine (09/24/10) * VIS Given (Unspecified) * VIS Given (Unspecified) 12-27-2009 influenza, seasonal, injectable Moose Dempsey MD Work Phone: [employer]; [employer]. Comment on above: Site: Deltoid (Left) VIS Given: * Inactivated Influenza Vaccine (10/10/08) 09-19-2009 zoster vaccine, live Moose trejo MD Work Phone: [employer]; [facility]. 06-20-2009 tetanus toxoid, redu dinh diphtheria toxoid, and acellular pertussis vaccine, adsorbed Moose Dempsey MD Work Phone: [employer]; [employer] Payers Date Payer Category Payer Self-pay 2024 Medicare [id number] 2024 Unknown [id number] 1950 Unknown [id number] 2.16.8 40.1.492220.3.579.2.651 1950 Unknown [id number] 2.16.8 40.1.905621.3.579.2.651 1950 Unknown [id number] 2.16.8 40.1.227120.3.579.2.651 Unknown Unknown [id number] 2.16.8 40.1.694605.3.579.2.462 Unknown [id number] 2.16.8 40.1.119169.3.579.2.462 Unknown [id number] 2.16.8 40.1.203072.3.579.2.462 Unknown [id number] 2.16.8 40.1.180560.3.579.2.462 Unknown [id number] 2.16.8 40.1.726153.3.579.2.462 Unknown [id number] 2.16.8 40.1.173649.3.579.2.462 Unknown [id number] 2.16.8 40.1.172082.3.579.2.462 Unknown [id number] 2.16.8 40.1.328736.3.579.2.462 Unknown [id number] 2.16.8 40.1.063985.3.579.2.462 Unknown [id number] 2.16.8 40.1.896545.3.579.2.462 Unknown [id number] 2.16.8 40.1.673027.3.579.2.462 Unknown [id number] 2.16.8 40.1.396753.3.579.2.462 Unknown [id number] 2.16.8 40.1.887294.3.579.2.462 Unknown [id number] 2.16.8 40.1.492981.3.579.2.462 Unknown [id number] 2.16.8 40.1.625865.3.579.2.462 Unknown [id number] 2.16.8 40.1.064533.3.579.2.462 Unknown [id number] 2.16.8 40.1.294697.3.579.2.462 Unknown [id number] 2.16.8 40.1.400785.3.579.2.462 Unknown [id number] 2.16.8 40.1.021182.3.579.2.462 Unknown [id number] 2.16.8 40.1.917305.3.579.2.462 Social History Date Type Detail Facility (Renamed fro m Spouse) (Renamed from Spouse) [facility] [employer] [facility] Tobacco Use: Tobacco Use: ; N ever smoker. [facility]; [employer] [facility] Start: 1950 Female [facility] Start: 08-12-2023 End: 09-18-2024 Never smoked tobacco [facility] Start: 12-30-2019 Tobacco Use Tobacco Use [facility] Tobacco smoking consumption unknown [facility]; [employer] [facility] Work Phone: NEGATED: Highlighted row No Social History Information Available No Social History Information Available [employer] [facility]; [employer] Work Phone: Medical Equipment Procedure Code Equipment Code Equipment Origin al Text Equipment Identifier Dates Discectomy, spine, cervical, anterior approach, with fusion Medtronic 2-Level Plate FDA Start: 09-14-2024 Discectomy, spine, cervical, anterior approach, with fusion Gelatin haemostatic agent [id number] FDA Start: 09-14-2024 Discectomy, spine, cervical, anterior [...] anterior approach, with fusion Ligation clip, metallic [id number] FDA Start: 09-14-2024 Discectomy, spine, cervical, anterior [...] Cervical Allograft Spacer ([id number]) FDA Start: 09-14-2024 PATCH,AMNION 2X3CM FDA Start: [...] Assessment Result Facility 09-15-2024 Functional status Ambulates [facility] Work Phone: Mental Status Date Assessment Result Facility 09-18-2024 Cognitive function Level Of Cons ciousness Awake;Alert;Appropriate;Follow s Commands [facility] Work Phone: 09-15-2024 Cognitive function Voice/Name [facility] Work Phone: Clinical Notes 07-08-2024 to 09-18-2024 Note Date & Type Note Facility 09-18-2024 Discharge summary [facility] 09-15-2024 Progress note Note Date/Time September 15, 2024 10:08am [facility] Medical Records Department [address] [place] [address] Progress Note - Hospitalist 09/15/24 1003 MR#: [id number] Acct: [id number] Name: DINORA SPAULDING Rep #:[id number] : 1950 74 From: Piotr Flowers DO PCP: Dr. Moose Dempsey MD Status:ADM IN Location: MS3 GS281-9 Subjective Subjective Feeling well. No new complaints. [...] (Auto) 91.0 H, Lymph % (Auto) 5.5 L,[place] % (Auto) 2.4, Eos % (Auto) 0.0, [...] operative note for further details. Reading Location: [facility] Cervical Spine X-Ray 09/15/24 05:05 IMPRESSION: Unremarkable postoperative appearance. Disclaimer: Reading Location: [place] [address] Physical Exam Const alert and no apparent [...] with questions/concerns. Charges/Coding Visit Charges Inpatient E&M: 02265 Subs Hosp L1 09/15/24 1008 <Electronically signed by Piotr Flowers DO> Cosigner Signature (if applicable): CC: ~ Signed [facility] Work Phone: 1(901) 520-149607-17-2025 Progress note [facility] Medical Records Department [address] [place] [address] Progress Note - Hospitalist 09/15/24 1003 MR#: [id number] Acct: [id number] Name: DINORA SPAULDING Rep #:[id number] : 1950 74 From: Piotr Flowers DO PCP: Dr. Moose Dempsey MD Status:ADM IN [place] [facility] SS110-1 Subjective Subjective Feeling well. No new complaints. [...] (Auto) 91.0 H, Lymph % (Auto) 5.5 L,[place] % (Auto) 2.4, Eos % (Auto) 0.0, [...] operative note for further details. Reading Location: [facility] Cervical Spine X-Ray 09/15/24 05:05 IMPRESSION: Unremarkable postoperative appearance. Disclaimer: Reading Location: [place] [address] Physical Exam Const alert and no apparent [...] with questions/concerns. Charges/Coding Visit Charges Inpatient E&M: 71864 Subs Hosp L1 09/15/24 1008 Cosigner Signature (if applicable): CC: ~ Signed [facility]07-17-2025 Radiology Diagnostic study note [facility] Imaging Services [address] [place] [address] Cerv Spine 2 or 3 Views MR#: [id number] Acct: [id number] Name: DINORA SPAULDING Rep #: [id number] : 1950 F 74 From: Kori Loaiza MD PCP: Dr. Moose Dempsey MD Status: ADM IN O Study:Cerv Spine 2 or 3 Views Date of Exam: 09/15/24 Exam# [id number] Ordering Dr: Jordan Dennis PROCEDURE: CERV SPINE [...] IMPRESSION: Unremarkable postoperative appearance. Disclaimer: Reading Location: [place] [address] CC: ALLYSON Wright; Dr. Moose Dempsey MD ~ Cooler Room Worker: Signed [facility]07-16-2025 Consult note Author Nikhil Pineda [facility] Note Date/Time September 14, 2024 4:08 pm [facility] Medical Records Department [address] [place] [address] Anesthesia Postop Eval II 09/14/24 1608 MR#: [id number] Acct: [id number] Name: DINORA SPAULDING Rep #:[id number] : 1950 74 From: Nikhil Pineda MD PCP: Dr. Moose Dempsey MD Status:ADM IN O Y Race: C [place] [facility] MS317 -1 Anesthesia Postop Eval I Sum Postop Eval Completion status Anesthesia document: Postop Eval 1 completed: Yes Anesthesia Postop Eval I Summary Anesthesia Postop Eval I Summary: Anesthesia Postop Eval I: Assessment Summary Airway patent Yes 09/14/24 11:40 BALL MILL OPERATOR.BROOKOBY Spontaneous unlabored Yes 09/14/24 11:40 BALL MILL OPERATOR.JOSE respirations Mental status Asleep 09/14/24 11:40 BALL MILL OPERATOR.BROOKOBBryan nausea No 09/14/24 11:40 BALL MILL OPERATOR.SKOBY Vomiting No 09/14/24 11:40 BALL MILL OPERATOR.SKOBY Anesthesia Postop Eval I: Fluid Summary Crystalloid volume administer 600 09/14/24 11:40 BALL MILL OPERATOR.SKOBY (ml) Colloids volume administered ( ml) Blood Product volume administered (ml) Total IV fluid infused 600 09/14/24 11:40 BALL MILL OPERATOR.BROOKOBBryan Anesthesia Postop Eval I: Summary Notes Anesthesia Complication No 09/14/24 11:40 BALL MILL OPERATOR.JOSE Anesthesia Complication Comment: Post-operative progress note oral airway in 09/14/24 11:[address] Anesthesia: Postop Eval II Evaluation Mental status: Awake and Calm Pain Level: 3 nausea: No Vomiting: No Complications Anesthesia Complication: No 09/14/24 1608 <Electronically signed by Nikhil Shannon D> Date _ Nikhil Pineda MD Cosigner Signature: Date CC: ~ Signed [facility] Work Phone: 1(142) 142-782707-16-2025 Consult note Author Carlos Curry [facility] Note Date/Time September 14, 2024 2:58 pm [facility] Medical Records Department [address] [place] [address] Consultation - Hospitalist 09/14/24 1411 MR#: [id number] Acct: [id number] Name: DINORA SPAULDING Rep #:[id number] : 1950 74 From: Carlos christianson DO PCP: Dr. Moose Dempsey MD Status:ADM IN O Location: MS3 EA152-5 Assessment & Plan Assessment/Plan (1) Status post cervical spinal fusion: PLAN: Plan Patient is a 74-year-old female who presented to [facility] on 09/14/2024 for planned cervical spine fusion [...] is a 74 F who presented to [facility] on 09/14/2024for planned orthopedic procedure. Medicine consulted [...] No other acute concerns at this time. [facility] Medical History Wears glasses Arthritis High cholesterol Gastric reflux Non-smoker History of pain when walking History of stress test Cataract Hyperlipidemia HTN (hypertension) Home Medications ?Medication ?Instructions ?Recorded ?Last Taken ?Type atenolol 25 mg tablet 25 mg PO DAILY 11/21/1908/30 History glucosamine 500 mg-msm 100 mg-vit 1 cap PO DAILY 11/2009/13/24 History C 20 ls-dsnpm-akrr-primrose capsule hydrochlorothiazide 25 mg tablet 25 mg PO DAILY 09/13/24 History lovastatin 20 mg tablet 20 mg PO QHS 11/21/19 History multivitamin (Multiple Vitamins 1 tab PO DAILY 0 09/13/24 History tablet) omega 5-txn-ddp-fish oil 1,000 mg 1 cap PO DAILY [...] operative note for further details. Reading Location: [facility] Charges/Coding Visit Charges Inpatient E&M: 84687 Subs Hosp L2 09/14/24 3873 <Electronically signed by Carlos Curry DO> Cosigner Signature (if applicable): CC: Dr. Guerrero Valdivia MD; Dr. Moose Dempsey MD~ Signed [facility] Work Phone: 1(120) 280-488207-16-2025 Consult note [facility] Medical Records Department [address] [place] [address] Anesthesia Postop Eval II 09/14/24 1608 MR#: [id number] Acct: [id number] Name: DINORA SPAULDING Rep #:[id number] : 1950 74 From: Nikhil Pineda MD PCP: Dr. Moose Dempsey MD Status:ADM IN O Y Race: C Location: PR3 MS317 -1 Anesthesia Postop Eval I Sum Postop Eval Completion status Anesthesia document: Postop Eval 1 completed: Yes Anesthesia Postop Eval I Summary Anesthesia Postop Eval I Summary: Anesthesia Postop Eval I: Assessment Summary Airway patent Yes 09/14/24 11:40 BALL MILL OPERATOR.SKOBY Spontaneous unlabored Yes 09/14/24 11:40 BALL MILL OPERATOR.JOSE respirations Mental status Asleep 09/14/24 11:40 BALL MILL OPERATOR.SKOBY nausea No 09/14/24 11:40 BALL MILL OPERATOR.SKOBY Vomiting No 09/14/24 11:40 BALL MILL OPERATOR.SKOBY Anesthesia Postop Eval I: Fluid Summary Crystalloid volume administer 600 09/14/24 11:40 BALL MILL OPERATOR.SKOBY (ml) Colloids volume administered ( ml) Blood Product volume administered (ml) Total IV fluid infused 600 09/14/24 11:40 BALL MILL OPERATOR.BROOKOBY Anesthesia Postop Eval I: Summary Notes Anesthesia Complication No 09/14/24 11:40 BALL MILL OPERATOR.SKOBY Anesthesia Complication Comment: Post-operative progress note oral airway in 09/14/24 11:[address] Anesthesia: Postop Eval II Evaluation Mental status: Awake and Calm Pain Level: 3 nausea: No Vomiting: No Complications Anesthesia Complication: No 09/14/24 1608 D> Date _ Nikhil Pineda MD Cosigner Signature: Date CC: ~ Signed [facility]07-16-2025 Consult note [facility] Medical Records Department [address] [place] [address] Consultation - Hospitalist 09/14/24 1411 MR#: [id number] Acct: [id number] Name: DINORA SPAULDING Rep #:[id number] : 1950 74 From: Carlos christianson DO PCP: Dr. Moose Dempsey MD Status:ADM IN Location: MS3 IW610-5 Assessment & Plan Assessment/Plan (1) Status post cervical spinal fusion: PLAN: Plan Patient is a 74-year-old female who presented to [facility] on 09/14/2024 for planned cervical spine fusion [...] is a 74 F who presented to [facility] on 09/14/2024for planned orthopedic procedure. Medicine consulted [...] No other acute concerns at this time. [facility] Medical History Wears glasses Arthritis High cholesterol Gastric reflux Non-smoker History of pain when walking History of stress test Cataract Hyperlipidemia HTN (hypertension) Home Medications ?Medication ?Instructions ?Recorded ?Last Taken ?Type atenolol 25 mg tablet 25 mg PO DAILY 11/21/1908/30 History glucosamine 500 mg-msm 100 mg-vit 1 cap PO DAILY 11/2009/13/24 History C 20 gs-luowe-onqz-primrose capsule hydrochlorothiazide 25 mg tablet 25 mg PO DAILY 09/13/24 History lovastatin 20 mg tablet 20 mg PO QHS 11/21/19 History multivitamin (Multiple Vitamins 1 tab PO DAILY 0 09/13/24 History tablet) omega 4-vfp-wgw-fish oil 1,000 mg 1 cap PO DAILY [...] operative note for further details. Reading Location: [facility] Charges/Coding Visit Charges Inpatient E&M: 97428 Subs Hosp L2 09/14/24 3318 Cosigner Signature (if applicable): CC: Dr. Guerrero Valdivia MD; Dr. Moose Dempsey MD~ Signed [facility]07-16-2025 Consult note Author Fatuma Cueto [facility] Note Date/Time September 14, 2024 11:4 0[facility] Medical Records Department [address] [place] [address] Anesthesia Postop Eval I 09/14/24 1139 MR#: [id number] Acct: [id number] Name: DINORA SPAULDING Rep #:[id number] : 1950 74 From: Fatuma graham CRNA PCP: Dr. Moose Dempsey MD Status:REG SD C Y Race: C Location: [place] [address] Anesthesia: Postop Eval I Current Vital Signs [...] by Fatuma lawton CRNA> Date _ Fatuma Nory BALL MILL OPERATOR Cosigner Signature: Date CC: ~ Signed [facility] Work Phone: 1(771) 554-640307-16-2025 Consult note [facility] Medical Records Department [address] [place] [address] Anesthesia Postop Eval I 09/14/24 1139 MR#: [id number] Acct: [id number] Name: DINORA SPAULDING Rep #:[id number] 0 : 1950 74 From: Fatuma graham BALL MILL OPERATOR PCP: Dr. Moose Dempsey MD Status:REG SD C Y Race: C Location: [place] [address] Anesthesia: Postop Eval I Current Vital Signs [...] Eval 1 completed: Yes 09/14/24 1140 leighann BALL MILL OPERATOR> Date _ Fatuma Salorazdajuan BALL MILL OPERATOR Cosigner Signature: Date CC: ~ Signed [facility]07-16-2025 Procedure note [facility] Medical Records Department [address] [place] [address] Operative Report 09/14/24 1135 MR#: [id number] Acct: [id number] Name: DINORA SPAULDING Rep #:[id number] : 1950 74 From: Guerrero Valdivia MD PCP: Dr. 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, stenosis, cord compression withmyelopathy Post-Operative Diagnosis: Same Surgery/Procedure Performed: C3-5 ACDF living manager: Shirley Floriculture Teacher: Leeanna Dennis Tasks completed by first aid instructor: Closing, Implanting device, Hemostasis: Electrocautery and Retracting [...] and Implanted device Implanted device details: Medtronic Whitefish Elite plate instrumentation Estimated Blood Loss: 30 cc Specimen collected: No Description of surgery: Preoperative diagnosis: C3-5 disc degeneration with stenosis, cord compression, myelopathy Postoperative diagnosis: Same Name of procedure: C3-5 anterior cervical discectomy and fusion with plate instrumentation - Anterior cervical fusion C3-4, CPT code 20270 - Anterior plate instrumentation C3-5, CPT code 02254/59 - Anterior cervical fusion C4-5, CPT code 24557/51 -C3-4 structural allograft bone with DBX, CPT code 60497 - C4-5 structural allograft bone with DBX, CPT code 72318 Attending surgeon: Guerrero Valdivia M.D. Anesthesia: Gen. endotracheal Estimated blood loss: 30 mL Complications: None Instrumentation used: Medtronic Whitefish Elite plate, LASR corticocancellous block Indications: The [...] Disc fragments were removed with the pituitary. [place] pins were placed in C3 and C4 [...] good pullout strength. A 42 mm Medtronic Whitefish Elite plate was then fixed toC3-5 with 16 mm screws. A lateral x-ray was then taken to check the length of the screws. Both AP and lateral x-rays showed good positioning of plate and screws. The locking mechanism over the screw heads was then turned. Thorough irrigation was again given. Hemostasis was achieved. A Christian drain was then inserted. Closure was done [...] entire surgery and performed the surgery myself. Pulp Mixer Leeanna Dennis PA-C. My physician research assistant member was a vital part of this case. [...] Valdivia MD; Dr. Moose Dempsey MD~ Signed [facility]07-16-2025 Radiology Diagnostic study note [facility] Imaging Services [address] [place], [place] [address] Cerv Spine 2 or 3 Views MR#: [id number] Acct: [id number] Name: DINORA SPAULDING Rep #: [id number] : 1950 F 74 From: Juana Mathur MD PCP: Dr. Moose Dempsey MD Status: REG SD C Study:Cerv Spine 2 or 3 Views Date of Exam: 09/14/24 Exam# [id number] Ordering Dr: Yue Valdivia MD EXAM: XR [...] operative note for further details. Reading Location: [facility] CC: Dr. Guerrero Valdivia MD; Dr. Moose Dempsey MD ~ Cooler Room Worker: Signed [facility]07-16-2025 History and physical note Author Guerrero Valdivia [facility] Note Date/Time September 14, 2024 8:19 am [facility] Medical Records Department [address] [place] [address] History & Physical Exam 09/14/24 0819 MR#: [id number] Acct: [id number] Name: DINORA SPAULDING Rep #:[id number] : 1950 74 From: Guerrero Valdivia MD PCP: Dr. Moose Dempsey MD Status:REG SD C Location: [place] [address] History and Physical Date of Admission: 09/14/24 MR#: [id number] Acct: [id number] Name: DINORA SPAULDING Rep #: [id number] : 1950 Provider: Dr. Guerrero Valdivia MD Age/Sex: 74/F Location: [facility] Status: Signed Intake Vital Signs 07/28/2512:21 09/01/2509:40 [...] PO DAILY 11/21/19 09/01/24 History C 20 tu-eqpoa-zajv-primrose capsule hydrochlorothiazide 25 mg tablet 25 mg PO DAILY 11/21/19 09/01/24 History lovastatin 20 mg tablet 20 mg PO QHS 11/21/19 09/01/24 History multivitamin (Multiple Vitamins 1 tab PO DAILY 11/21/19 09/01/24 History tablet) omega 0-scp-ldn-fish oil 1,000 mg 1 cap PO DAILY [...] Valdivia MD; Dr. Moose Dempsey MD~ Signed [facility] Work Phone: 1(382) 388-754907-16-2025 Consult note Author Nikhil Pineda [facility] Note Date/Time September 14, 2024 7:35 am [facility] Medical Records Department [address] [place] [address] Pre-Anesthesia Evaluation 09/14/24 0734 MR#: [id number] Acct: [id number] Name: DINORA SPAULDING Rep #:[id number] : 1950 74 From: Nikhil Pineda MD PCP: Dr. Moose Dempsey MD Status:REG SD C Y Race: C Location: [place] [address] ASA Classification* ASA Classification ASA Classification: 2 [...] AND C4-5 Anesthesia History Anesthesia History - lead teacher: Anesthesia History - lead teacher Hx Hospitalization No 08/31/24 10:11 Any Problems [...] take am of surgery PONV PONV - lead teacher: PONV - lead teacher Female Yes 08/31/24 10:11 HX of Motion [...] 09/14/24 06:42 Respiratory Assessment Respiratory Assessment - lead teacher: Respiratory Tract Infection Hx - lead teacher Hx Respiratory Tract Infection No 08/31/24 10:11 STOP Sleep Apnea STOP Sleep Apnea - lead teacher: STOP Sleep Apnea - lead teacher Hx Hypertension Yes: CONTROLLED WITH MEDS 08/31/24 [...] Tobacco Use History Tobacco Use History - lead teacher: Tobacco Use History - lead teacher Tobacco Use Smoking Status Never smoker 08/31/24 10:11 Hx Tobacco Use No 08/31/24 10:11 Years Smoking Packs Smoked per Day Smoking Cessation Date was within the last 15 years Hx Smoking Cessation Date Hx Smoking Cessation Counseling Hematologic Medial History Hematologic Hx - lead teacher: Hematologic 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 - 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 specialist Hx of Blood Transfusion No 08/31/24 10:11 [...] confused, unrespo /Reproduction History /Reproductive History - lead teacher: /Reproductive Hx- lead teacher Hx Now Gestational Age (in weeks): EDC: [...] cap PO DAILY 11/2009/13/24 History C 20 et-cehiw-eepj-primrose capsule hydrochlorothiazide 25 mg tablet 25 mg PO DAILY 09/13/24 History lovastatin 20 mg tablet 20 mg PO QHS 11/21/19 History multivitamin (Multiple Vitamins 1 tab PO DAILY 0 09/13/24 History tablet) omega 7-yeo-jog-fish oil 1,000 mg 1 cap PO DAILY [...] MD Cosigner Signature: Date CC: ~ Signed [facility] Work Phone: 1(945) 486-113507-16-2025 History and physical note [facility] Medical Records Department [address] [place] [address] History & Physical Exam 09/14/24 0819 MR#: [id number] Acct: [id number] Name: DINORA SPAULDING Rep #:[id number] : 1950 74 From: Guerrero Valdivia MD PCP: Dr. Moose Dempsey MD Status:REG SD C Location: [place] [address] History and Physical Date of Admission: 09/14/24 MR#: [id number] Acct: [id number] Name: JASSONDINORAKYUNG ASTORGA Rep #: [id number] : 1950 Provider: Dr. Guerrero Valdivia MD Age/Sex: 74/F Location: [facility].JESSICA Status: Signed Intake Vital Signs 07/28/2512:21 09/01/2509:40 [...] PO DAILY 11/21/19 09/01/24 History C 20 gc-ravuy-qdpn-primrose capsule hydrochlorothiazide 25 mg tablet 25 mg PO DAILY 11/21/19 09/01/24 History lovastatin 20 mg tablet 20 mg PO QHS 11/21/19 09/01/24 History multivitamin (Multiple Vitamins 1 tab PO DAILY 11/21/19 09/01/24 History tablet) omega 4-jav-gxh-fish oil 1,000 mg 1 cap PO DAILY [...] Valdivia MD; Dr. Moose Dempsey MD~ Signed [facility]07-16-2025 [facility] Medical Records Department [address] [place] [address] History Physical Exam 09/14/24818 MR#: [id number] Acct: [id number] Name: DINORA SPAULDING Rep #: [id number] : 1950 74 From: Guerrero Valdivia MD PCP: Dr. Moose Dempsey MD Status:REG [facility] Location: [place] [address]- History and Physical Date of Admission: 09/14/24 MR#: [id number] Acct: [id number] Name: DINORA SPAULDING Rep #: [id number] : 1950 Provider: Dr. Guerrero Valdivia MD Age/Sex: 74/F Location: [facility].JESSICA Status: Signed Intake Vital Signs 07/28/2512:21 09/01/2509:40 [...] PO DAILY 11/21/19 09/01/24 History C 20 ax-qxhyv-xvwr-primrose capsule hydrochlorothiazide 25 mg tablet 25 mg PO DAILY 11/21/19 09/01/24 History lovastatin 20 mg tablet 20 mg PO QHS 11/21/19 09/01/24 History multivitamin (Multiple Vitamins 1 tab PO DAILY 11/21/19 09/01/24 History tablet) omega 7-rxl-jaf-fish oil 1,000 mg 1 cap PO DAILY [...] only above the knee (more content not included)...[facility]07-16-2025 Consult note [facility] Medical Records Department [address] [place] [address] Pre-Anesthesia Evaluation 09/14/24 0734 MR#: [id number] Acct: [id number] Name: DINORA SPAULDING Rep #:[id number] : 1950 74 From: Nikhil Pineda MD PCP: Dr. Moose Dempsey MD Status:REG SD C Y Race: C Location: [place] [address] ASA Classification* ASA Classification ASA Classification: 2 [...] AND C4-5 Anesthesia History Anesthesia History - lead teacher: Anesthesia History - lead teacher Hx Hospitalization No 08/31/24 10:11 Any Problems [...] take am of surgery PONV PONV - lead teacher: PONV - lead teacher Female Yes 08/31/24 10:11 HX of Motion [...] 09/14/24 06:42 Respiratory Assessment Respiratory Assessment - lead teacher: Respiratory Tract Infection Hx - lead teacher Hx Respiratory Tract Infection No 08/31/24 10:11 STOP Sleep Apnea STOP Sleep Apnea - lead teacher: STOP Sleep Apnea - lead teacher Hx Hypertension Yes: CONTROLLED WITH MEDS 08/31/24 [...] Tobacco Use History Tobacco Use History - lead teacher: Tobacco Use History - lead teacher Tobacco Use Smoking Status Never smoker 08/31/24 10:11 Hx Tobacco Use No 08/31/24 10:11 Years Smoking Packs Smoked per Day Smoking Cessation Date was within the last 15 years Hx Smoking Cessation Date Hx Smoking Cessation Counseling Hematologic Medial History Hematologic Hx - lead teacher: Hematologic Medical Hx - benefits specialist Hx of Blood Transfusion No 08/31/24 10:11 [...] confused, unrespo /Reproduction History /Reproductive History - lead teacher: /Reproductive Hx- lead teacher Hx Now Gestational Age (in weeks): EDC: [...] cap PO DAILY 11/2009/13/24 History C 20 hy-fffql-iinq-primrose capsule hydrochlorothiazide 25 mg tablet 25 mg PO DAILY 09/13/24 History lovastatin 20 mg tablet 20 mg PO QHS 11/21/19 History multivitamin (Multiple Vitamins 1 tab PO DAILY 0 09/13/24 History tablet) omega 1-bif-vat-fish oil 1,000 mg 1 cap PO DAILY [...] Nikhil Santoyo Signature: Date CC: ~ Signed [facility]07-03-2025 Hospital Discharge instructionsAmbulatory Orders* 12 Lead EKG [[facility]] Time Frame: 07/03/25, Location: None Selected Additional Instructions Keep Tegaderm [...] lifting, twisting. Follow-up in clinic in 2 weeks.[facility] Work Phone: 1(766) 331-397305-09-2025 Evaluation note* Diagnosis Onset Date Resolution Status Admit Date Cervical myelopathy acute July 082024 7:55am History of laminectomy acute 2024 7:55am Lumbar scoliosis acute July 08, 2024 7:55am Spinal stenosis of lumbar re gion with neurogenic claudication acute July 08, 2024 7:55am Spondylolisthesis, lumbar region acu te July 08, 2024 7:55am [facility] Work Phone: 1(902) 714-190305-09-2025 Evaluation note* Diagnosis Onset Date Resolution Status [...] region acu te July 28, 2024 1:16pm [facility] Work Phone: 1(857) 122-373805-09-2025 Evaluation note* Diagnosis Onset Date Resolution Status [...] spinal fusion acute September 14, 2024 11:18am [facility] Work Phone: [phone]) 519-401005-09-2025 Evaluation note* Diagnosis Onset Date Resolution Status [...] spinal fusion acute September 14, 2024 11:18am Status post cervical spinal fusion acute September 29, 2024 8:52am [facility] Work Phone: Discharge summary Author Peter Ornelas [facility] Note Date/Time September 18, 2024 11:2 7am [facility] Medical Records Department [address] [place] [address] Emergency Department Summary 09/18/24 MR#: [id number] Acct: [id number] Name: DINORA SPAULDING Rep #:[id number] : 1950 74 From: Petre Ornelas MD PCP: Dr. Moose Dempsey MD Status:REG ER Location: ED HPI History of Present Illness Chief Complaint: Hypertension Detail of Chief Complaint: Concerned because of elevated blood pressure and headache yesterday Informant: patient Onset/Context/Timing Onset: Today and Yesterday Context: - (Unknown) Timing: Waxes and wanes Quality: Patient with history of hypertension who presents because of elevated blood Current Severity: Mild Maximum Severity: Mild Worsened by: Possibly pain Relieved by: Pain medicine Associated Symptoms Associated Symptoms: Vertex headache yesterday Narrative Narrative: Patient is a 74-year-old woman. She has history hypertension. She is presentlyon hydrochlorothiazide and metoprolol. Her medication dose has not been changedfor some time. She took her blood pressure because she had a vertex headache yesterday. This occurred at rest. She is status post fusion C3-4-5 this past week by Dr. Garcia. She has had elevated blood pressures today as well. She contacted Dr. Garcia who reported concern and reason she presents. She denied double vision, blurred vision loss of vision. She denies trouble with speech orswallowing. She complains of numbness in her feet. She had this numbness priorto the surgery. She has no other complaints. She reports compliance with her medicine and compliance with her diet. Prior similar symptoms: Yes Recent Illness/Hospitalization: Yes PFSH [facility] Medical History Wears glasses Arthritis High cholesterol Gastric reflux Non-smoker History of pain when walking History of stress test Cataract Hyperlipidemia HTN (hypertension) Home Medications ?Medication ?Instructions ?Recorded ?Last Taken ?Type atenolol 25 mg tablet 25 mg PO DAILY 11/21/1908/30 History hydrochlorothiazide 25 mg tablet 25 mg PO DAILY 09/13/24 History lovastatin 20 mg tablet 20 mg PO QHS 11/21/19 History multivitamin (Multiple Vitamins 1 tab PO DAILY 0 09/13/24 History tablet) omega 4-qpj-rbr-fish oil 1,000 mg 1 cap PO DAILY 11/2008/31/24 History (120 mg-180 mg) capsule (Fish Oil) turmeric root extract 500 mg 500 mg PO DAILY 11/21/19 09/13/24 History capsule omeprazole 20 mg capsule,delayed 20 mg PO .QOD 5 09/14/24 History release hydrocodone-acetaminophen 5-325mg 1 tab PO Q6H PRN [place] n 7 days #28 09/15/24 Unknown Rx 5mg-325mg tabs meloxicam 15 mg tablet 15 mg PO DAILY #30 tabs 08/30 09/23 Unknown Rx methocarbamol 500 mg tablet 500 - 750 mg (1 - 1.5 x 50 0 mg) PO 09/15/24 Unknown Rx TID PRN pain/spasms #30 tabs sennosides 8.6 mg-docusate sodium 2 tab PO BID PRN con stipation #30 09/15/24 Unknown Rx 50 mg tablet (Stimulant Laxative tabs Plus) Allergy/AdvReac Type Severity Reaction Status Date / Time Penicillins Allergy Hives Verified 09/18/24 09:08 Family History Mother Cancer Father Heart problem Surgical History H/O removal of cyst History of lumbar laminectomy H/O: hysterectomy Social History household members: spouse housing: house Smoking Status: Never smoker alcohol intake: never what type of physical activity do you participate in: none do you feel safe at home: Yes ROS ROS ED Constitutional Constitutional ED: Denies chills, fever(s), subjective, sweats or weight loss Eyes Eyes: Denies blurry vision, change in vision or diplopia ENT ENT ED: Reports other Details: Further detailed HPI narrative ; Denies ear pain, rhinorrhea or sore throat Cardiovascular Cardiovascular: Denies chest pain, orthopnea, palpitations or paroxysmal nocturnal dyspnea Respiratory/Chest Respiratory/Chest: Denies cough, dyspnea, dyspnea on exertion, orthopnea or paroxysmal nocturnal dyspnea Gastrointestinal Gastrointestinal: Denies abdominal pain, nausea or vomiting Musculoskeletal Musculoskeletal: Reports neck pain Integumentary Denies rash Neurologic Neurologic: Reports headache(s) and paresthesias RLE and LLE; Denies weakness Psychiatric Psychiatric: Denies anxiety or depression Hematologic/Lymphatic Hematologic/Lymphatic: Reports systems reviewed and no addt'l complaints, exceptas documented EXAM Physical Exam Const Vital Signs: 09/18/24 09:07 09/18/24 09:07 09/18/24 10:10 Temperature 97.3 F L Temperature Source Temporal Pulse Rate 76 76 69 Respiratory Rate 14 14 16 Blood Pressure 205/86 H 178/96 H 142/76 H Blood Pressure Mean 125 123 98 Pulse Ox 98 98 96 Oxygen Delivery Method Room Air Room Air Room Air Positive well nourished and well developed General Appearance ED: well developed and NAD HEENT Reports moist mucous membranes HEENT Narrative: Head is atraumatic no cephalic. Ears normal. Nares patent. Posterior pharynx normal. Uvula midline. No deviation or protrusion. Patient is in a collar since she had recent surgery. Bandage is still over the incision site. Eyes PERRL and EOMs intact bilaterally General Eye ED: Negative for pale conjunctiva or scleral icterus Neck no lymphadenopathy and no JVD Resp normal respiratory effort and clear to auscultation bilaterally Cardio regular rate, regular rhythm, S1 normal heart sound, S2 normal heart sound and no murmurs Extremity normal to inspection General Extremety ED: Negative for edema or tenderness General Extremity: Negative for edema Neuro oriented x3 and CN's II-XII intact bilaterally Sensorium / Orientation: alert Psych mental status grossly normal Skin no rashes or lesions noted, No no wounds and skin turgor normal General Skin Exam: elasticity normal MDM MDM Lab Data Attestation: I reviewed the patient's lab results. Lab results narrative: BMP is unremarkable. With no evidence of endorgan dysfunction patient was observed. Her most recent blood pressure was 142/76. This is slightly higher than her baseline. She also has neck pain since recent surgery. Recommended not checking her blood pressure for the next week or 2. Suspect this is all related to the surgery and since she is asymptomatic other than she had a headache yesterday which 1 would not expect with a systolic pressure 160 suspectthis is most likely a tension headache due to the fact she had recent surgery. Labs: Laboratory Results - last 24 hr 09/18/24 09:18 Sodium 138 Potassium 3.7 Chloride 99 Carbon Dioxide 27.6 Anion Gap 12 BUN 23 H Creatinine 0.95 Estim Creat Clear Calc 48.56 L Est GFR (MDRD) Non-Af 62 BUN/Creatinine Ratio 23.6 H Glucose 117 H Calcium 10.0 Discharge Plan Triage Chief Complaint: Hypertension ED Provider: Peter Ornelas Dx/Rx/DC Orders Clinical Impression: Asymptomatic hypertension, Status post cervical spinal fusion, Acute tension- type headache Instructions: ED High Blood Pressure Hypertension Prescriptions: No Action atenolol 25 mg tablet 25 mg PO DAILY lovastatin 20 mg tablet 20 mg PO QHS hydrochlorothiazide 25 mg tablet 25 mg PO DAILY turmeric root extract 500 mg capsule 500 mg PO DAILY omega 9-zub-lyf-fish oil [Fish Oil] 1,000 mg (120 mg-180 mg) capsule 1 cap PO DAILY multivitamin [Multiple Vitamins] Tablet 1 tab PO DAILY omeprazole 20 mg capsule,delayed release(DR/EC) 20 mg PO .QOD hydrocodone-acetaminophen 5-325 mg Tablet 1 tab PO Q6H PRN (Reason: pain) 7 Days Qty: 28 0RF meloxicam 15 mg Tablet 15 mg PO DAILY Qty: 30 0RF Rx Instructions: take once a day methocarbamol 500 mg Tablet 500 - 750 mg PO TID PRN (Reason: pain/spasms) Qty: 30 0RF sennosides-docusate sodium [Stimulant Laxative Plus] 8.6-50 mg Tablet 2 tab PO BID PRN (Reason: constipation) Qty: 30 0RF Primary Care Provider: Moose Dempsey Referrals: Moose Dempsey MD [Primary Care Provider] - 1-2 Weeks Print Language: Egyptian Disposition Disposition: Home, Self Care What to do if you have Problems For any increased pain, shortness of breath, bleeding, nausea or vomiting, chestpain, or any unexpected problems, contact your Primary Care Provider. Call [facility] ([phone]) or report to the closest Emergency Room. Call 911 if necessary. 09/18/24 1127 <Electronically signed by Peter Ornelas MD> Cosigner Signature (if applicable): CC: Dr. Moose Dempsey MD ~ Signed [facility] Work Phone: Hospital Discharge instructionsAmbulatory Orders* PT Referral Location: None Selected [facility] Work Phone: Reason for referral (narrative)No reason for referral information available[facility] Work Phone: Summary Purpose Family History [...] attack Status:Active Commen ts:Mother. vascular dementia Status:Active Comments:Olivee rMagalis Cerebrovascular Accident Status:Active Comment s:aunts Colon Cancer Status:Active Comments:Mother. Coronary Artery Disease Status:Active Comments :Father. Sister. Hypertension Status:Active Comments:Mother. Prostate Cancer Status:Active Comments:Father. Rosacea Status:Active Comments:Father. Brother. Transient ischemic attack Status:Active Commen ts:Mother. vascular dementia Status:Active Comments:Olivee r. Cerebrovascular Accident Status:Active Comment s:aunts Colon Cancer [...] Do you have a Healthcare Power of Organ Pipe Maker [employer]? Yes September 14, 2024 2:07pm Name of Medical Power of Organ Pipe Maker [employer] September 14, 2024 2:07pm Advance Directive Response Recorded Date/ Time Do you have a Healthcare Power of Organ Pipe Maker [employer]? Yes September 14, 2024 2:07pm Name of Medical Power of Organ Pipe Maker [employer] September 14, 2024 2:07pm Do you have a Healthcare Power of Organ Pipe Maker [employer]? Yes September 18, 2024 9:15am Chief Complaint and Reason for Visit Chief [...] cervical spinal fusion September 14, 2024 11:18am Chief Complaint Admit Date LUMBAR SPINE July [...] C3-4 and C4-5 J oscar 2024 10:03am Anterior Cervical Fusion C3-4 and C4-5 J oscar 2024 8:08am HTN September 18, 2024 9:07 am Chief Complaint Admit Date LUMBAR SPINE July 08, 2024 7:55am CERIVCAL MYELOPATHY July 22, 2024 7:44a m CERVICAL SPINE July 28, 2024 1:16p m RM 3 July 28, 2024 1:36p m PREOP September 01, 2024 9:58a m cervical spine September 01, 2024 10:23 am Anterior Cervical Fusion C3-4 and C4-5 J oscar 2024 8:19am Anterior Cervical Fusion C3-4 and C4-5 J oscar 2024 11:18am Anterior Cervical Fusion C3-4 and C4-5 J oscar 2024 2:11pm Anterior Cervical Fusion C3-4 and C4-5 J oscar 2024 10:03am Anterior Cervical Fusion C3-4 and C4-5 J oscar 2024 8:08am HTN September 18, 2024 9:07 am cervical spine September 29, 2024 8:52 am Room 6 September 29, 2024 9:12 am Reason for Visit Admit Date Cervical [...] cervical spinal fusion September 14, 2024 11:18am Status post cervical spinal fusion September 29, 2024 8:52am Chief Complaint Admit Date LUMBAR SPINE July 08, 2024 7:55am CERIVCAL MYELOPATHY July 22, 2024 7:44a m CERVICAL SPINE July 28, 2024 1:16p m RM 3 July 28, 2024 1:36p m PREOP September 01, 2024 9:58a m cervical spine September 01, 2024 10:23 am Anterior Cervical Fusion C3-4 and C4-5 J 2024 8:19am Anterior Cervical Fusion C3-4 and C4-5 J 2024 11:18am Anterior Cervical Fusion C3-4 and C4-5 J 2024 2:11pm Anterior Cervical Fusion C3-4 and C4-5 J 2024 10:03am HTN September 18, 2024 9:07 am cervical spine September 29, 2024 8:52 am Room 6 September 29, 2024 9:12 am cervical spine October 27, 2024 8: 42am Room 3 October 27, 2024 9: 08am Additional Source Comments INFORMATION SOURCE (unrecogn ized section and content) DATE CREATED AUTHOR 06/23/2021 [facility] DATE CREATED AUTHOR AUTHOR'S ORGANIZ ATION 11/11/2024 [facility] DATE CREATED AUTHOR AUTHOR'S ORGANIZ ATION 12/22/2024 [facility] DATE CREATED AUTHOR AUTHOR'S ORGANIZ ATION 12/23/2024 [facility] Care Teams (unrecognized sec tion and content) [...] Provider Active Star t: September 15, 2024 Team Status: Active Member Role/Relationship Status Dates Dr. Moose Dempsey MD Primary Care Provider Active Start: September 16, 2024 Dr. Guerrero Valdivia MD Admit Provider Active Star t: September 16, 2024 Dr. Guerrero Valdivia MD Referring Provider Active Start: September 16, 2024 Dr. Guerrero Valdivia MD Other Provider Active Star t: September 16, 2024 Dr. Piotr Flowers DO Other Provider Active Star t: September 16, 2024 ALLYSON Wright Attending Provider Active Star t: September 16, 2024 Team Status: Inactive Member Role/Relationship Status Dates Dr. Moose Dempsey MD Primary Care Provider Active Start: September 18, 2024 End: September 18, 2024 Dr. Peter Ornelas MD Emergency Provider Active Sta rt: September 18, 2024 End: September 18, 2024 Team Status: Active Member Role/Relationship Status Dates Dr. Moose Dempsey MD Primary Care Provider Active Start: September 01, 2024 End: September 01, 2024 Dr. Chente Whitmore MD Attending Provider Active S tart: September 01, 2024 End: September 01, 2024 Dr. Guerrero Valdivia MD Referring Provider Active Start: September 01, 2024 End: September 01, 2024 Team Status: Inactive Member Role/Relationship Status [...] Provider Active Star t: September 15, 2024 Team Status: Active Member Role/Relationship Status Dates Dr. Moose Dempsey MD Primary Care Provider Active Start: September 16, 2024 Dr. Guerrero Valdivia MD Admit Provider Active Star t: September 16, 2024 Dr. Guerrero Valdivia MD Referring Provider Active Start: September 16, 2024 Dr. Guerrero Valdivia MD Other Provider Active Star t: September 16, 2024 Dr. Piotr Flowers DO Other Provider Active Star t: September 16, 2024 ALLYSON Wright Attending Provider Active Star t: September 16, 2024 Team Status: Inactive Member Role/Relationship Status Dates Dr. Moose Dempsey MD Primary Care Provider Active Start: September 18, 2024 End: September 18, 2024 Dr. Peter Ornelas MD Attending Provider Active Sta rt: September 18, 2024 End: September 18, 2024 Dr. Peter Ornelas MD Emergency Provider Active Sta rt: September 18, 2024 End: September 18, 2024 Team Status: Active Member Role/Relationship Status Dates Dr. Moose Dempsey MD Primary Care Provider Active Start: September 29, 2024 Dr. Moose Dempsey MD Referring Provider Active S tart: September 29, 2024 Dr. Guerrero Valdivia MD Attending Provider Active Start: September 29, 2024 Team Status: Inactive Member Role/Relationship Status Dates Dr. Moose Dempsey MD Primary Care Provider Active Start: September 29, 2024 End: September 29, 2024 Dr. Chente Whitmore MD Attending Provider Active S tart: September 29, 2024 End: September 29, 2024 Team Status: Inactive Member Role/Relationship Status Dates Dr. Moose Dempsey MD Primary Care Provider Active Start: September 29, 2024 End: September 29, 2024 Dr. Moose Dempsey MD Referring Provider Active S tart: September 29, 2024 End: September 29, 2024 Dr. Guerrero Valdivia MD Attending Provider Active Start: September 29, 2024 End: September 29, 2024 Team Status: Inactive Member Role/Relationship Status [...] September 14, 2024 End: September 15, 2024 ALLYSON Wright Attending Provider Active Star t: September 14, 2024 Team Status: Inactive Member Role/Relationship Status Dates Dr. Moose Dempsey MD Primary Care Provider Active Start: September 18, 2024 End: September 18, 2024 Dr. Peter Ornelas MD Attending Provider Active Sta rt: September 18, 2024 End: September 18, 2024 Dr. Peter Ornelas MD Emergency Provider Active Sta rt: September 18, 2024 End: September 18, 2024 Team Status: Inactive Member Role/Relationship Status Dates Dr. Moose Dempsey MD Primary Care Provider Active Start: September 29, 2024 End: September 29, 2024 Dr. Moose Dempsey MD Referring Provider Active S tart: September 29, 2024 End: September 29, 2024 Dr. Guerrero Valdivia MD Attending Provider Active Start: September 29, 2024 End: September 29, 2024 Team Status: Inactive Member Role/Relationship Status Dates Dr. Moose Dempsey MD Primary Care Provider Active Start: September 29, 2024 End: September 29, 2024 Dr. Chente Whitmore MD Attending Provider Active S tart: September 29, 2024 End: September 29, 2024 Team Status: Active Member Role/Relationship Status Dates Dr. Moose Dempsey MD Primary Care Provider Active Start: October 27, 2024 Dr. Moose Dempsey MD Referring Provider Active S tart: October 27, 2024 ALLYSON Wright Attending Provider Active Star t: October 27, 2024 Team Status: Inactive Member Role/Relationship Status Dates Dr. Moose Dempsey MD Primary Care Provider Active Start: October 27, 2024 End: October 27, 2024 Dr. Chente Whitmore MD Attending Provider Active S tart: October 27, 2024 End: October 27, 2024 Team Status: Inactive Member Role/Relationship Status Dates Dr. Moose Dempsey MD Primary Care Provider Active Start: October 27, 2024 End: October 27, 2024 Dr. Moose Dempsey MD Referring Provider Active S tart: October 27, 2024 End: October 27, 2024 ALLYSON Wright Attending Provider Active Star t: October 27, 2024 End: October 27, 2024 Goals (unrecognized section and content) Goals [...] BE BASED ON THE PRIMARY CLINICAL RECORDS. [facility]. provides no warranty or guarantee of the accuracy or completeness of information in this document.
== END | disposition home or self-care (01) ==
LOC: MRI 07:12
PROVIDERS: PCP Family Medicine; Referring Provider Orthopaedic Surgery Orthopaedic Surgery of the Spine; Visit Provider Orthopaedic Surgery Orthopaedic Surgery of the Spine
DX: M48.062 Spinal stenosis, lumbar region with neurogenic claudication (principal); M54.16 Radiculopathy, lumbar region
CPT/HCPCS: 72148

== ENCOUNTER 2025-01-04 13:14 | Inpatient (IN) | payer MEDICARE, BC, SELFPAY ==
[2024-12-23 08:58] LABS: Hematocrit 43.8 % (37-47); Hemoglobin 15.0 g/dL (12.0-15.0); Immature Granulocytes Count 0.020 X10^3/uL (0.0-0.0); Mean Corp Hgb Conc 34.2 g/dL (32-36); Mean Corpuscular Volume 83.7 fL (81-99); Mean Platelet Vol. 10.0 fl (6.2-12.0); NRBC Flagged by Analyzer 0 % (0-5); Platelet Count 280 K/mm3 (150-450); RBC Distribution Width CV 13.3 % (11.6-14.6); RBC Distribution Width SD 40.7 fl (35.1-43.9); Red Blood Count 5.23 M/mm3 (4.2-5.4); White Blood Count 5.8 K/mm3 (4.4-11.0)
[2024-12-23 09:33] LABS: Magnesium 2.1 mg/dL (1.5-2.2)
[2024-12-23 09:36] LABS: Anion Gap 11 (5-15); BUN 22 mg/dL (4-19); BUN/Creat Ratio 23.5 RATIO (10-20); Calcium,Total 9.7 mg/dL (7.6-11.0); Carbon Dioxide 26.0 mmol/L (21.0-32.0); Chloride 103 mmol/L (98-108); Glucose 101 mg/dL (70-99); Potassium 3.8 mmol/L (3.3-5.1)
[2025-01-04] VITALS (19 sets, daily range): BP systolic 113–156; BP diastolic 51–107; PULSE 71–89; RESP 15–18; TEMP 35.7–36.6; O2SAT 93–100; BMI 31.1
[2025-01-04] MEDS: Magnesium 1 GM over 15 mins IV (06:05)
[2025-01-04] MEDS: Lactated Ringers 1,000 ML 15 ML IV (06:05)
--- NOTE | 2025-01-04 06:29 | PCM.PRE.AN2 ---
ASA Classification* ASA Classification ASA Classification: 2 (HTN, GERD. Place 2nd IV 18G; arterial line in pre-op if possible, otherwise post-induction. Patient consents to blood products if needed. ) Assessment & Plan Anesthesia* Anesthesia Assessment Anesthesia Assessment: Discussed sedation and/or anesthesia options, risks, benefits, and alternatives with patient/parents/legal guardian/POA. Questions invited. The patient/parents/legal guardian/POA seems to understand and agrees to proceed with anesthesia plan. Reviewed the physical assessment, medical history, allergy history and patient home medications list prior to surgery/procedure/anesthetic and documented any changes. Performed airway and anesthesia risk assessments. Anesthesia Type Anesthesia Type: General History Source History Obtained from:: Patient and Chart Anesthesia Focused Assessment* Temperature: 97.9 F Pulse Rate: 77 Blood Pressure: 156/81 Respiratory Rate: 16 Pulse Ox: 97 Oxygen Delivery Method: Room Air Airway Assessment Mouth opens: >3 cm Mallampati Score: II Teeth Condition: Intact Neck Range of motion (ROM): Full ROM Labs Anesthesia Preop lab: CBC WBC, (4.4-11.0) 5.8 K/mm3 12/23/24, 08:05 RBC, (4.2-5.4) 5.23 M/mm3 12/23/24, 08:05 Hgb, (12.0-15.0) 15.0 g/dL 12/23/24, 08:05 Hct, (37-47) 43.8 % 12/23/24, 08:05 Plt Count, (150-450) 280 K/mm3 12/23/24, 08:05 CHEMISTRY Potassium, (3.3-5.1) 3.8 mmol/L 12/23/24, 08:05 Sodium, (133-145) 140 mmol/L 12/23/24, 08:05 Magnesium, (1.5-2.2) 2.1 mg/dL 12/23/24, 08:05 BUN, (4-19) 22 mg/dL H 12/23/24, 08:05 Creatinine, (0.70-1.20) 0.93 mg/dL 12/23/24, 08:05 Glucose, (70-99) 101 mg/dL H 12/23/24, 08:05 POC Glucose, (74-106) 111 mg/dL H 09/14/24, 06:39 COAG Pre-Assessment Diagnosis/Proposed Procedure Planned Operative Procedure(s): 360 Lumbar Fusion L2-3, L3-4 and L4-5, possible cement augmentation Anesthesia History 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 When Was Last Pacemaker Check QUESTION #4 FULL TEXT: You/Your Family Experience fever (hyperthermia) with Anesthesia Last Oral Intake Last Oral intake: Last Oral Intake NPO since 04:00 01/04/25 05:57 Meds taken in AM with sips of Yes 01/04/25 05:57 water? Meds patient instructed to see mar 01/04/25 05:57 take am of surgery PONV PONV - encoding machine operator: PONV - encoding machine operator Female Yes 12/21/24 13:52 HX of Motion Sickness Yes 12/21/24 13:52 HX of N/V After Surgery No 12/21/24 13:52 Non-Smoker Yes 12/21/24 13:52 Duration of Surgery greater Yes 12/21/24 13:52 than 60 minutes Number of Risk Factors 4 12/21/24 13:52 PONV Score Severe Risk 12/21/24 13:52 Height & Weight Height & Weight: Anesthesia: Height & Weight Height 5 ft 2 in 01/04/25 05:57 Weight: 77.111 kg 01/04/25 05:57 Body Mass Index (BMI) 31.1 01/04/25 05:57 Respiratory Assessment Respiratory Assessment - encoding machine operator: Respiratory Tract Infection Hx - encoding machine operator Hx Respiratory Tract Infection No 12/21/24 13:52 STOP Sleep Apnea STOP Sleep Apnea - encoding machine operator: STOP Sleep Apnea - encoding machine operator Hx Hypertension Yes: controlled with meds 12/21/24 13:52 Hx Sleep Apnea No 12/21/24 13:52 CPAP BIPAP Do you snore loudly (louder No 12/21/24 13:52 than talking or can be heard Do you often feel tired/ No 12/21/24 13:52 fatigued/ sleepy during daytime? Has anyone observed you stop No 12/21/24 13:52 breathing during sleep? STOP Results Negative 12/21/24 13:52 QUESTION #5 FULL TEXT : Do you snore loudly (louder than talking or can be heard through closed doors)? 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 Specify any problems Hx of Preganancy in last 3 N/A 12/21/24 13:52 Months Nurse Filling Out Transfusion NBUCHER 12/21/24 13:52 & Questions: Date: 12/21/24 12/21/24 13:52 Time: 13:53 12/21/24 13:52 Patient unable to answer at this time (ie. confused, unrespo /Reproduction History /Reproductive History - encoding machine operator: /Reproductive Hx- encoding machine operator Hx Now No 12/21/24 13:52 Gestational Age (in weeks): EDC: Hx Hx Para Hx Section SAB No 12/21/24 13:52 Active Medications Active Medications: Current Medications Generic Name Dose Route Start Last Admin Trade Name Freq PRN Reason Stop Dose Admin Acetaminophen 1,000 mg 01/04/25 07:30 01/04/25 06:05 Acetaminophen 500 Mg Tablet PO 01/04/25 07:31 1,000 mg PREOP ONE Administration Clindamycin Phosphate 900 mg in 50 mls @ 75 mls/hr 01/04/25 07:30 Cleocin IV 01/04/25 08:09 INTRAOP ONE Tranexamic Acid 1,000 mg/ 110 mls @ 440 mls/hr 01/04/25 07:30 Sodium Chloride IV 01/04/25 07:44 INTRAOP ONE Tranexamic Acid 1,000 mg/ 110 mls @ 440 mls/hr 01/04/25 07:30 Sodium Chloride IV 01/04/25 07:44 INTRAOP ONE Magnesium Sulfate 1 gm/ 102 mls @ 408 mls/hr 01/04/25 07:30 01/04/25 06:05 Dextrose IV 01/04/25 07:44 408 mls/hr PREOP ONE Administration Lactated Ringer's 1,000 mls @ 15 mls/hr 01/04/25 05:45 01/04/25 06:05 IV 15 mls/hr .Q48H ROSE Administration Insulin Human Lispro 1 - 6 unit 01/04/25 07:30 Insulin Lispro 100 Unit/Ml Insuln.Pen SC 01/04/25 18:00 Q4H PRN PRN BG>/= 180, SEE PROTOCOL Protocol PFSH Medical History Lumbar radiculopathy Obesity (BMI 30.0-34.9) Wears glasses Arthritis High cholesterol Gastric reflux Non-smoker History of pain when walking History of stress test Cataract Hyperlipidemia HTN (hypertension) Home Medications ?Medication ?Instructions ?Recorded ?Last Taken ?Type atenolol 25 mg tablet 25 mg PO DAILY HTN 11/21/19 01/04/25 04:00 History hydrochlorothiazide 25 mg tablet 25 mg PO DAILY HTN 11/21/19 01/03/25 History lovastatin 20 mg tablet 20 mg PO QHS HLD 11/21/19 01/03/25 History multivitamin (Multiple Vitamins 1 tab PO DAILY SUPPLEMENT 11/21/19 01/03/25 History tablet) omeprazole 20 mg capsule,delayed 20 mg PO QODAY GERD 07/08/24 01/04/25 04:00 History release Allergy/AdvReac Type Severity Reaction Status Date / Time Penicillins Allergy Hives Verified 01/04/25 05:56 Family History Mother Cancer Father Heart problem Surgical History History of fusion of cervical spine (09/14/24) H/O removal of cyst History of lumbar laminectomy H/O: hysterectomy Social History household members: spouse housing: house Smoking Status: Never smoker alcohol intake: never what type of physical activity do you participate in: none do you feel safe at home: Yes Review of Systems (Anesthesia) ROS Narrative System reviewed and no additional complaints, except as documented. Physical Exam Const alert, oriented x3 and average body habitus Resp normal respiratory effort, normal air movement and clear to auscultation bilaterally Cardio regular rate, regular rhythm, no murmurs and diaphoretic
--- NOTE | 2025-01-04 06:30 | RAD_ITS ---
RAD/Lumbar Spine 2 or 3 Views
--- NOTE | 2025-01-04 07:15 | HP.PCM_ITS ---
History and Physical
--- NOTE | 2025-01-04 07:15 | PCM.HP.BLA ---
History and Physical Date of Admission: 01/04/25 MR#: [id number] Acct: [id number] Name: DINORA SPAULDING Rep #: [id number] : 1950 Provider: Dr. Graham Valdivia MD Age/Sex: 74/F [place] [facility] [place]: Signed Intake Vital Signs 09/29/2508:03 12/10/2507:53 Height 5 ft 2 in 5 ft 2 in Intake Visit Reasons: lumbar spine Chief Complaint: Lumbar Spine Pre-Op Accompanied by: Self Is patient in pain?: No Allergies Penicillins Allergy (Verified 12/30/24 09:54) Hives Medications ?Medication ?Instructions ?Recorded ?Confirmed ?Type atenolol 25 mg tablet 25 mg PO DAILY HTN 11/21/19 12/30/24 History hydrochlorothiazide 25 mg tablet 25 mg PO DAILY HTN 11/21/19 12/30/24 History lovastatin 20 mg tablet 20 mg PO QHS HLD 11/21/19 12/30/24 History multivitamin (Multiple Vitamins 1 tab PO DAILY SUPPLEMENT 11/21/19 12/30/24 History tablet) omeprazole 20 mg capsule,delayed 20 mg PO QODAY GERD 07/08/24 12/30/24 History release Have you fallen in the past year?: No PFSH Medical History Lumbar radiculopathy Obesity (BMI 30.0-34.9) Wears glasses Arthritis High cholesterol Gastric reflux Non-smoker History of pain when walking History of stress test Cataract Hyperlipidemia HTN (hypertension) Surgical History History of fusion of cervical spine (09/14/24) H/O removal of cyst History of lumbar laminectomy H/O: hysterectomy Family History Mother Cancer Father Heart problem Social History household members: spouse housing: house Smoking Status: Never smoker alcohol intake: never what type of physical activity do you participate in: none do you feel safe at home: Yes HPI lumbar spine Details: This documentation accurately reflects the service provided and the decisions made by me, Dr. Graham Valdivia MD 12/30/24947. Part of today?s visit was documented by Bailey Miner ATC, acting as scribe. DINORA SPAULDING is a 74 year old F here today for lumbar spine pre-op for 360 lumbar fusion L2-3, L3-4 and L4-5 with possible augmentation DOS 01/04/2025. Patient denies any pain today and states she only really has a lot of pain if she walks for a prolonged period of time. She denies any recent injections. The patient is a 74-year-old female presenting with lumbar spinal stenosis. She previously underwent lower back surgery due to persistent pain that affected her ability to lay down, stand, or sit comfortably. Currently, she experiences tingling and numbness that has progressed from her lower back to her leg and hip. The symptoms worsen with prolonged walking, such as during shopping trips, but are not severe enough to warrant immediate surgery for pain relief. The primary concern is the decline in her functional ability due to spinal stenosis, affecting her endurance and ability to walk distances. The patient has a history of low bone density, which is attributed to age. She has been advised to continue calcium and vitamin D supplementation to strengthen her bones. There is no history of diabetes or smoking, which are positive factors for her surgical outcome. - Neurological: Reports tingling and numbness in the lower back, leg, and hip. Denies new symptoms since the last visit. - Musculoskeletal: Reports decreased endurance and difficulty walking long distances. - General: Denies diabetes and smoking history. Attestation: Documentation on this patient encounter was supported using ambient scribe technology/ voice AI technology. The patient consented to recording for the purpose of documenting the encounter. Provider reviewed content of the generated note prior to signature. 11/1024: DINORA SPAULDING is a 74 year old F here today for cervical spine 12 s/p r cervical spine 6 week post op C3-5 ACDF DOS 09-14-24. Patient states that she doesn't have any pain today. She states that she hasn't had any injections. Patient states that she just finished physical therapy at the end of October 2024. She states that she did physical therapy at [facility]. Patient states that she did 1 month of physical therapy. She states that the physical therapy did help her. Patient states that she doesn't think the surgery did really anything for her. She states that she still can't really turn her head all the way. Patient states that when she turns her head too far she will get some pain. She states that she is having trouble swallowing some medications. Patient states that she is able to swallow small pills. She states that she tries to cut her big pills in half, but she still has trouble swallowing them. Patient states that she doesn't have any pain trying to swallow. She states that when she tries to swallow, her pills come back up and they get stuck in her throat. She is not avoiding any foods. She complains of ongoing low back pain, she is scheduled for surgery for this next month. She has been using the bone stimulator daily. Ortho Exam General General: Yes no acute distress Neurologic: Yes alert and Yes oriented x3 Psychologic: Yes reasonable and appropriate Spine SPINE TESTING CERVICAL THORACIC LUMBAR Musculoskeletal Strength 0=absent - 5=normal Details: Neurological exam of the upper extremities shows 5X5 power. Normal sensation across all dermatomes. Physical examination of the neck shows a well-healed and dried incision. Exam Narrative Upper and lower extremity show 5 x 5 strength. There is no hyperreflexia lower extremities. August's negative. Gait shows mild imbalance. Lower back shows midline and left paraspinal tenderness. Coding Level of Care Code Off vis,est,level 4 Diagnoses Status post cervical spinal fusion Z98.1 Obesity (BMI 30.0-34.9) E66.811 Spinal stenosis of lumbar region with neurogenic claudication M48.062 Spondylolisthesis, lumbar region M43.16 Time Spent (min) 35 Assessment and Plan Assessment and Plan (1) Status post cervical spinal fusion: Status: Acute (2) Obesity (BMI 30.0-34.9): Status: Acute (3) Spinal stenosis of lumbar region with neurogenic claudication: Status: Acute (4) Spondylolisthesis, lumbar region: Status: Acute Plan X-rays cervical spine show hardware and bone graft in good position. Lumbar spine MRI done recently was reviewed which shows L4-5 spondylolisthesis and L2-5 severe stenosis. 1. Lumbar spinal stenosis - Surgical intervention is planned to improve function and quality of life, focusing on increasing endurance and walking ability. - The surgery will involve opening up the space for the nerves and stabilizing the spine with screws and rods. 2. Low bone density - Continue calcium and vitamin D supplementation to support bone health. - Monitor bone density and consider intraoperative measures such as cement augmentation if bone purchase is inadequate. - Continue taking calcium and vitamin D supplements as advised. - Engage in regular walking to improve endurance and support recovery post-surgery. - Follow a clear liquid diet post-surgery until passing gas, then gradually resume solid foods. - Avoid heavy lifting, excessive bending, and twisting for the first three months post-surgery. - Attend follow-up visits at two weeks, six weeks, three months, and one year post-surgery for monitoring and x-rays. Discussed imaging findings in detail. Patient has significant left lower extremity radiation of pain with difficulty walking distances and neurogenic claudication. At this time she has exhausted nonsurgical treatment and wishes to proceed with surgery. Her symptoms are affecting her quality of life. Surgery will be L2-5 decompression fusion in the form of anterior posterior fusion with indirect decompression. Discussed this procedure in detail and explained the risks, benefits and alternatives. The risks of surgery include but are not limited to infection, bleeding, injury to nerves or vessels, need for further surgery, ileus, vascular injury, visceral injury, DVT, pulmonary embolism, pneumonia, atelectasis, cardiopulmonary event, pseudoarthrosis, hardware failure, gait abnormality, adjacent segment degeneration. Discussed post-surgery restrictions in detail such as no bending, lifting, or twisting. Answered all questions to the patient?s satisfaction. Patient understands and agrees to proceed with surgery. Consent was signed. Follow up two weeks post operatively or sooner if pain, swelling, numbness or associated symptoms, or concerns develop. All questions answered. Patient in agreement of plan.
[2025-01-04] MEDS: Midazolam 2 MG/2 ML Syringe IV (07:28)
[2025-01-04] MEDS: Lidocaine 1% (5 ml sdv) 5 ML Vial IV (07:38)
[2025-01-04] MEDS: fentaNYL 100 MCG/2 ML Ampul 200 MCG IV (11:24)
[2025-01-04] MEDS: TRANEXAMIC ACID 1,000 MG/10 ML ML 2000 MG IV (12:31)
--- NOTE | 2025-01-04 13:06 | OP.PCM_ITS ---
Procedures Musculoskeletal
--- NOTE | 2025-01-04 13:06 | PCM.OPRPT ---
Procedures Musculoskeletal 20xxx-29xxx: Other Procedure See Report Operative Report (Standard) Operative Information Date of Procedure: 01/04/25 Pre-Operative Diagnosis: L4-5 spondylolisthesis, L2-5 disc degeneration, stenosis with neurogenic claudication, prior L4-5 laminectomy Post-Operative Diagnosis: Same Surgery/Procedure Performed: L2-5 oblique lumbar body fusion, anterior instrumentation roof slater: Yes Make Ready Worker: Leeanna Dennis Tasks completed by first leveler: Closing, Removing tissue, Implanting device, Hemostasis: Electrocautery and Retracting Type of Anesthesia: General RN Documented Start/Stop Times: Operation Date: 01/04/25 07:30 Case Time Into Pre-Op 01/04/25 05:37 Out of Pre-Op 01/04/25 07:27 Anesthesia Start 01/04/25 07:28 Into Room 01/04/25 07:28 Procedure Start 01/04/25 08:08 Procedure End 01/04/25 12:59 Procedure Start Time: 08:08 Procedure Stop Time: 12:59 Select all DRAINS/GRAFTS/IMPLANTS that apply: Graft Graft details: Allograft cancellous chips, autologous iliac crest bone marrow aspirate and Implanted device Implanted device details: DePuy cougar lateral lumbar interbody cage, 4 web 2 hole plate Estimated Blood Loss: 100 cc Specimen collected: No Description of surgery: Preoperative diagnosis: L4-5 spondylolisthesis, L2-5 disc degeneration, stenosis with neurogenic claudication, prior L4-5 laminectomy Postoperative diagnosis: Same Name of procedures L2-5 oblique lumbar interbody fusion (OLIF), anterior instrumentation minimally invasive left sided approach, lateral decubitus: ? L2-3 anterolateral spinal fusion 72651 ? L3-4 anterolateral fusion 26698/51 ? L4-5 anterolateral fusion 91169/51 ? L2-3 insertion of cage 64819 ? L3-4 insertion of cage 77107/51 ? L4-5 insertion of cage 67237/51 . L3-4 anterior instrumentation 28995 ? Bone graft aspirate left iliac crest separate incision ? Allograft cancellous chips Attending Surgeon: Dr. Graham Valdivia Estimated blood loss: 100 mL Anesthesia: General Complications: None Indications: Patient is a 74-year-old pleasant lady who has had a long history of low back pain and bilateral lower extremity radiation, difficulty walking distances. Xrays & MRI revealed L4-5 spondylolisthesis, L2-5 disc degeneration with stenosis, prior L4-5 laminectomy. After undergoing a prolonged period of nonoperative treatment, the patient elected to undergo surgical decompression & fusion. All surgical options were discussed with the patient including anterior and posterior approaches. All risks and benefits associated with the procedure were explained to the patient. The risks include but are not limited to infection, bleeding, injury to nerves and vessels including major vessels like IVC and aorta, persistent paresthesia, persistent pain, dural tear, need for further procedures, adjacent segment degeneration, pseudoarthrosis, hardware failure, retrograde ejaculation, paralytic ileus, etc. Procedure: The patient was identified in the preoperative holding suite using Unique patient identifiers. Skin was marked, consent was reviewed, and all questions were answered. The patient was then brought back to the operative room. A surgical timeout was performed to make sure correct procedure was being done on the correct patient and all operative room staff were on the same page. General endotracheal anesthesia was then given to the patient. Cisse catheter was inserted. The patient was then carefully positioned in right lateral decubitus position with the left side up on a regular OR table. Axillary roll was placed and all bony prominences were well- padded. Hip positioners were placed in the posterior buttocks and anterior sternal area. The surgical area was prepped and draped in usual fashion. Preoperative antibiotic was injected IV as preoperative antibiotic. A final timeout was then again done just before starting the procedure. A 2 inch incision oblique was taken in the left lower quadrant of the abdomen 2 fingerbreadths away from the iliac crest and the lower ribs. Sharp dissection with Bovie was carried out up to the fascia covering the external oblique. The external oblique, internal oblique and transversus abdominis muscles were split along the muscle fibers and retroperitoneal space was entered. Sponge sticks were utilized to move the bowel and peritoneum bbp-iv-bmc-way and psoas muscle was exposed staying within the retroperitoneal plane. [employer] retractor system was positioned and the retractor blade was applied onto the psoas. The interval between psoas and midline structures was developed and appropriate retractors were placed. Once adequate interval was cleared, a disc space was identified and a marker x-ray was taken. This identified the L4-5 disc level. The prepsoas interval was then traced superiorly to expose L3-4 and L2-3 levels. Annulotomy was done with a long handled knife starting at L4-5. Pituitary was used to remove disc material. Curettes were used to prepare the endplates. Disc space spreaders were utilized to distract and increase the disc height. Near complete discectomy was performed. Trials of serially increasing sizes were used. A Jamshidi needle was used to aspirate bone marrow from the left anterior iliac crest through a separate incision and this aspirate was mixed with the allograft bone chips. A Depuy Sims cage of size of the 18 x 50 x 10 mm with 15 degrees lordosis was packed with corticocancellous allograft bone chips mixed with bone marrow aspirate. This was inserted into the L4-5 disc space. The retractors were then repositioned to expose the L3-4 and L2-3 discs and the procedure was repeated with complete discectomy and endplate preparation. Smaller disc distractors were also used to bluntly perform a contralateral annulotomy at all 3 levels. Cage size was 18 x 50 x 10 mm at L3-4, 18 x 50 x 12 mm at L2-3. AP and lateral C-arm pictures were taken to confirm good position of the cage. Some bone chips were also packed around the cages. Screw with washer was placed into the lower L2 body with a washer partially covering the cage at L2-3. L3-4 showed significant instability, and decision was made to perform anterior instrumentation. A 4 web 2 hole plate was applied over L3-4 separate from the cage with 2 screws going to L3 and L4 bodies each 45 mm. Hemostasis was confirmed. The retractor blades were removed. Closure was done in layers with a continuous strand of # 1 Vicryl in all muscle layers. 2-0 Vicryl was used for subcutaneous tissue and 4-0 for Monocryl for the skin. Steri-Strips were applied and 4 x 4 gauze and Tegaderm were applied. Clinical Programmer Leeanna Dennis PA-C. My physician workers compensation claims assistant was a vital part of this case. They were important in appropriate retraction during the case, and protection of soft tissues during the procedure. Their intimate knowledge of the case and my steps aided in safe and expedient completion of the procedure as well as appropriate position of the patient during the surgery. They were also vital in assisting with closure under my direct supervision. Surgical Findings: See operative note Complications Complications: No
--- NOTE | 2025-01-04 13:13 | OP.PCM_ITS ---
Procedures Musculoskeletal
--- NOTE | 2025-01-04 13:13 | PCM.OPRPT ---
Procedures Musculoskeletal 20xxx-29xxx: Other Procedure See Report Operative Report (Standard) Operative Information Date of Procedure: 01/04/25 Pre-Operative Diagnosis: L4-5 spondylolisthesis, L2-5 disc degeneration, stenosis with neurogenic claudication, prior L4-5 laminectomy Post-Operative Diagnosis: Same Surgery/Procedure Performed: L2-5 posterior spinal instrumented fusion drier operator head: Yes Utility Bill Collection Clerk: Leeanna Dennis Tasks completed by technical administrative assistant: Closing, Removing tissue, Implanting device, Hemostasis: Electrocautery and Retracting Type of Anesthesia: General RN Documented Start/Stop Times: Operation Date: 01/04/25 07:30 Case Time Into Pre-Op 01/04/25 05:37 Out of Pre-Op 01/04/25 07:27 Anesthesia Start 01/04/25 07:28 Into Room 01/04/25 07:28 Procedure Start 01/04/25 08:08 Procedure End 01/04/25 12:59 Procedure Start Time: 08:08 Procedure Stop Time: 12:59 Select all DRAINS/GRAFTS/IMPLANTS that apply: Graft Graft details: Allograft cancellous chips and Implanted device Implanted device details: DePSoloPowerer prime pedicle screw instrumentation Estimated Blood Loss: 100 cc Specimen collected: No Description of surgery: Preoperative diagnosis: L4-5 spondylolisthesis, L2-5 disc degeneration, stenosis with neurogenic claudication, prior L4-5 laminectomy Postoperative diagnosis: Same Name of procedures: L2-5 posterior percutaneous pedicle screw instrumented fusion, cement augmentation, prone: ? L2-3 posterior spinal fusion 95550 ? L2-5 posterior pedicle screw instrumentation 22517 ? L3-4 posterior fusion 03614/51 ? L4-5 posterior fusion 91757/51 ? Allograft cancellous chips 11640 Attending Surgeon: Dr. Graham Valdivia Estimated blood loss: 100 mL (total for entire case) Anesthesia: General Complications: None Description of procedure: After the anterior procedure was complete, the patient was then turned supine. The patient was then transferred to Lexx table in prone position. Back was prepped and draped in usual fashion. C-arm AP view was then taken. C-arm was positioned in a way that L2 was centralized and superior endplate of was parallel to the beam. Spinous process was centered between the pedicles. Midline was marked with skin marker and lateral borders of the pedicles were also marked. Skin marker was also utilized to hipolito transversely across the middle of the pedicles at L2. 2 transverse paramedian incisions of 1 inch were placed. The fascia was incised vertically. Finger dissection was utilized to palpate the transverse process and facet joint. Viper Prime screws with towers were inserted and docked onto the transverse processes. This was then slowly moved medially to reach the superior articular process of L2. This was then confirmed on C-arm and then a mallet was utilized to drive the trocar into the pedicle going up to the medial wall of the pedicle on AP view. This was performed both sides. C-arm lateral view confirmed that the tip of the trocar was in the vertebral body, and the screw was advanced into the pedicle and vertebral body. This was repeated similarly at L3 through transverse incision, and L5 through vertical incision. Screw sizes were 7 x 50 mm at L2 and L5, and 7 x 45 mm at L3 on both sides. 100 mm precontoured titanium 5.5 mm lordotic krishan on both sides were then passed through the screw extensions and reduced down to the screws with the help of Datappraiseer instrumentation system on both sides. AP and lateral view of the C-arm showed good positioning of the screws and cages. Final tightening with the torque screwdriver was then completed. [place] was utilized to roughen the facet joint at L2-3, L3-4, L4-5 on the right side. Cancellous allograft bone chips mixed with bone marrow aspirate were then placed over this decorticated area. Hemostasis was achieved. Closure was done in layers with 0 Vicryls for the fascia, 2-0 Vicryls for the subcutaneous tissue, and Monocryl for the skin. Dermabond was applied. Dressings were applied covered with Tegaderm. The patient was then turned supine onto a hospital bed. The patient was extubated and taken to PACU in stable condition. The patient tolerated the procedure well and no complications occurred. Depuy Erving cage & Viper Prime minimally invasive pedicle screw instrumentation system was utilized in this case. No dural tear was identified intraoperatively. I was present for the entirety of the case and performed the surgery. Medical Imaging Director Leeanna Dennis PA-C. My physician assistant produce manager was a vital part of this case. They were important in appropriate retraction during the case, and protection of soft tissues during the procedure. Their intimate knowledge of the case and my steps aided in safe and expedient completion of the procedure as well as appropriate position of the patient during the surgery. They were also vital in assisting with closure under my direct supervision. Surgical Findings: See operative note Complications Complications: No
--- NOTE | 2025-01-04 13:17 | POSTOP.ANE_ITS ---
Anesthesia: Postop Eval I
--- NOTE | 2025-01-04 13:17 | PCM.POST.ANE ---
Anesthesia: Postop Eval I Current Vital Signs Temperature: 97.1 F Pulse Rate: 80 Blood Pressure: 140/51 Respiratory Rate: 16 Pulse Ox: 100 Oxygen Delivery Method: Nasal Cannula Oxygen Flow Rate (L/min): 2 Assessment Airway patent: Yes Spontaneous unlabored respirations: Yes Mental status: Awake and Calm nausea: No Vomiting: No Anesthesia Complication: No Fluid Hydration Crystalloid volume administer (ml): 3,200 Total IV fluid infused: 3,200 Progress Note Anesthesia document: Postop Eval 1 completed: Yes
--- NOTE | 2025-01-04 14:24 | POSTOPAN2_ITS ---
Anesthesia Postop Eval I Sum
--- NOTE | 2025-01-04 14:24 | PCM.POSTANE2 ---
Anesthesia Postop Eval I Sum Postop Eval Completion status Anesthesia document: Postop Eval 1 completed: Yes Anesthesia Postop Eval I Summary Anesthesia Postop Eval I Summary: Anesthesia Postop Eval I: Assessment Summary Airway patent Yes 01/04/25 13:18 [email or web address] Spontaneous unlabored Yes 01/04/25 13:18 [email or web address] respirations Mental status Awake,Calm 01/04/25 13:18 [email or web address] nausea No 01/04/25 13:18 [email or web address] [email or web address] Vomiting No 01/04/25 13:18 [email or web address] Anesthesia Postop Eval I: Fluid Summary Crystalloid volume administer 3,200 01/04/25 13:18 [email or web address] (ml) Colloids volume administered ( ml) Blood Product volume administered (ml) Total IV fluid infused 3,200 01/04/25 13:18 [email or web address] Anesthesia Postop Eval I: Summary Notes Anesthesia Complication No 01/04/25 13:18 [email or web address] Anesthesia Complication Comment: Post-operative progress note Anesthesia: Postop Eval II Evaluation Mental status: Awake Pain Level: 0 nausea: No Vomiting: No Complications Anesthesia Complication: No
[2025-01-04] MEDS: Clindamycin 900 MG/50 ML BAG 75 MG IV ×2 (16:04→23:20)
--- NOTE | 2025-01-04 16:06 | PCM.CONS.GEN ---
Assessment & Plan Assessment/Plan (1) Spinal stenosis of lumbar region with neurogenic claudication: PLAN: Plan Patient is a 74-year-old female who presented to on 01/04/2025 for planned lumbar fusion procedure. Medicine consulted postoperatively for medical management. 1. Lumbar stenosis with neurogenic claudication ? Orthopedic surgery primary. S/p L2-5 lumbar fusion procedure with Dr. Valdivia on 01/04. Tolerated procedure well, no intraoperative complications noted. Postoperative pain control, DVT prophylaxis and further management per orthopedics. Follow-up a.m. labs. PT/OT/case management consulted. 2. Nausea ? Patient with nausea noted this evening. No vomiting to this point. Unclear if due to postoperative nausea versus secondary to oral oxycodone given for pain control. IV Zofran ordered as needed. Monitor. 3. Hypertension/hyperlipidemia ? Mildly hypertensive to the 130s to 140s systolic postoperatively. Continue home atenolol, hydrochlorothiazide and statin. 4. GERD ? Continue home PPI. DVT prophylaxis: Defer to orthopedics Total clinical time spent by myself addressing the patient's medical issues, reviewing all the data, and collaborating with patient's care team: 37 minutes. HPI Consult Data Date of Consult: 01/04/25 HPI Narrative Reason for Consultation: Postoperative medical management HPI Narrative: DINORA SPAULDING, is a 74 F who presented to on 01/04/2025 for planned orthopedic procedure. Medicine consulted postoperatively for medical management. Patient had L2-5 lumbar fusion procedure, Dr. Valdivia today. Tolerated procedure well, no intraoperative complications noted. I saw the patient at bedside this evening. Patient was sitting back in bed and did appear mildly uncomfortable due to mild low back pain as well as some nausea. She was holding a green vomitus bag during our conversation. Notes that she was given a dose of medication for nausea a little while ago and this has been helpful for her. Otherwise notes that the pain medication for her low back was moderately helpful for her as well. No other acute concerns currently. [facility] Medical History Lumbar radiculopathy Obesity (BMI 30.0-34.9) Wears glasses Arthritis High cholesterol Gastric reflux Non-smoker History of pain when walking History of stress test Cataract Hyperlipidemia HTN (hypertension) Home Medications ?Medication ?Instructions ?Recorded ?Last Taken ?Type atenolol 25 mg tablet 25 mg PO DAILY HTN 11/21/19 01/04/25 04:00 History hydrochlorothiazide 25 mg tablet 25 mg PO DAILY HTN 11/21/19 01/03/25 History lovastatin 20 mg tablet 20 mg PO QHS HLD 11/21/19 01/03/25 History multivitamin (Multiple Vitamins 1 tab PO DAILY SUPPLEMENT 11/21/19 01/03/25 History tablet) omeprazole 20 mg capsule,delayed 20 mg PO QODAY GERD 07/08/24 01/04/25 04:00 History release Allergy/AdvReac Type Severity Reaction Status Date / Time Penicillins Allergy Hives Verified 01/04/25 05:56 Family History Mother Cancer Father Heart problem Surgical History History of fusion of cervical spine (09/14/24) H/O removal of cyst History of lumbar laminectomy H/O: hysterectomy Social History household members: spouse housing: house Smoking Status: Never smoker alcohol intake: never what type of physical activity do you participate in: none do you feel safe at home: Yes ROS Constitutional Constitutional: Denies chills, fatigue or fever(s) Cardiovascular Cardiovascular: Denies chest pain Respiratory/Chest Respiratory/Chest: Denies shortness of breath at rest Gastrointestinal Gastrointestinal: Reports nausea; Denies abdominal pain or vomiting Musculoskeletal Musculoskeletal: Reports back pain; Denies myalgias Neurologic Neurologic: Denies dizziness, focal weakness, headache(s), numbness or tingling Physical Exam Const alert, oriented x3 and no apparent distress Constitutional Narrative: Elderly female, class I obesity, mildly anxious and uncomfortable appearing due to ongoing nausea and mild low back pain, otherwise sitting back in bed and answering questions appropriately. General Appearance: cooperative HEENT normocephalic, head/scalp atraumatic, hearing grossly normal bilaterally, nasal mucous membranes and turbinates normal and moist oral mucous membranes Eyes PERRL, EOMs intact bilaterally and conjunctivae normal Neck full ROM Chest inspection of chest normal Resp normal respiratory effort, normal air movement, no use of accessory muscles and clear to auscultation bilaterally Cardio regular rate, regular rhythm, no murmurs and peripheral pulses 2+ throughout GI normal to inspection, nondistended, normoactive bowel sounds, soft to palpation, non-tender and non-distended Back/Spine Back/Spine Narrative: Surgical dressing noted over incision site. Mild decreased range of motion noted. Extremity normal to inspection, full ROM and no pedal edema Skin no rashes or lesions noted Neuro moves all extremities and no focal motor deficits Psych mental status grossly normal Lab / Micro Data 12/23/24 08:05 12/23/24 08:05 Labs: Laboratory Results - last 24 hr 01/04/25 05:55: POC Glucose 134 H 01/04/25 14:21: POC Glucose 164 H Imaging Radiology Impression Lumbar Spine X-Ray 01/04/25 06:30 IMPRESSION: Fluoroscopic guidance was used intraoperatively. Please refer to the operative note for further details. Reading [facility] Charges/Coding Visit Charges Inpatient E&M: 88036 Subs Hosp L2
[2025-01-04] MEDS: 0.9% Normal Saline (250mL Bag) 250 ML IV (16:24)
[2025-01-04] MEDS: 0.9% Saline Lock 10 ML Syringe IV ×3 (16:24→23:31)
[2025-01-04] MEDS: Senna/Docusate Sodium 1 Tablet 2 TABLET PO (23:17)
[2025-01-05 04:31] VITALS: BP 119/57; PULSE 85; RESP 18; TEMP 36.8; O2SAT 96
[2025-01-05 04:44] LABS: Hematocrit 38.2 % (37-47); Hemoglobin 12.9 g/dL (12.0-15.0); Immature Granulocytes Count 0.070 X10^3/uL (0.0-0.0); Mean Corp Hgb Conc 33.8 g/dL (32-36); Mean Corpuscular Volume 85.7 fL (81-99); Mean Platelet Vol. 10.2 fl (6.2-12.0); NRBC Flagged by Analyzer 0.1 % (0-5); Platelet Count 230 K/mm3 (150-450); RBC Distribution Width CV 13.6 % (11.6-14.6); RBC Distribution Width SD 42.5 fl (35.1-43.9); Red Blood Count 4.46 M/mm3 (4.2-5.4); White Blood Count 15.6 K/mm3 (4.4-11.0)
[2025-01-05 05:22] LABS: Anion Gap 14 (5-15); BUN 19 mg/dL (4-19); BUN/Creat Ratio 20.0 RATIO (10-20); Calcium,Total 8.4 mg/dL (7.6-11.0); Carbon Dioxide 19.5 mmol/L (21.0-32.0); Chloride 101 mmol/L (98-108); Estimated Creatinine Clearance 47.93 ml/min (50-250); Glucose 147 mg/dL (70-99); Potassium 4.0 mmol/L (3.3-5.1)
--- NOTE | 2025-01-05 05:30 | RAD_ITS ---
PROCEDURE: RAD/Lumbar Spine 2 or 3 Views
[2025-01-05] MEDS: 0.9% Saline Lock 10 ML Syringe IV ×2 (05:58→21:37)
[2025-01-05 07:57] VITALS: BP 110/49; PULSE 85; RESP 16; TEMP 37.1; O2SAT 98
[2025-01-05] MEDS: Senna/Docusate Sodium 1 Tablet 2 TABLET PO ×2 (08:04→21:39)
[2025-01-05 11:15] VITALS: BP 110/46; PULSE 83; RESP 18; TEMP 37.5; O2SAT 93
--- NOTE | 2025-01-05 11:34 | CASEMGMT ---
Dx: Status post cervical spinal fusion LACE:1 6-Clicks:24 Medical record reviewed and patient evaluated for identification of discharge planning needs. Based on this review, at this time criteria are not present to indicate a need for discharge planning. MARIA DEL CARMEN CM to ensure pt feels safe returning home once medically ready. Pt states that she feels safe and also states that she has access to a FWW if needed. Pt states that she plans to follow up with ortho as an OP and start OP Tx as warranted. Pt denies further questions or concerns. Will remain available to assist with discharge planning needs as identified or requested.
--- NOTE | 2025-01-05 12:51 | PCM.PN.HOSP ---
Subjective Subjective Pt reports no BM yet so still on liquids, denies abd pain or nausea today, no CP or SOB, no other new or acute complaints Objective Data Objective Data Vital Signs: Vital Signs Temp Pulse Resp BP Pulse Ox O2 Del Method O2 Flow Rate 99.5 F H 83 18 110/46 L 93 Room Air 1 01/05/25 11:15 01/05/25 11:15 01/05/25 11:15 01/05/25 11:15 01/05/25 11:15 01/05/25 11:15 01/05/25 04:31 Oxygen Flow Rate (L/min) 1 Oxygen Delivery Method Room Air Weight: 77.111 kg Body Mass Index (BMI) 31.1 Intake & Output: Intake and Output for Last 24 Hours 01/03/25 01/04/25 01/05/25 23:59 23:59 23:59 Intake Total 3507.43 / 3507.43 781 / 781 Output Total 1300 / 1300 170 / 170 Balance 2207.43 / 2207.43 611 / 611 Lab / Micro Data 01/05/25 04:19 01/05/25 04:19 Labs: Laboratory Results - last 24 hr 01/04/25 14:21: POC Glucose 164 H 01/05/25 04:19: WBC 15.6 H, RBC 4.46, Hgb 12.9, Hct 38.2, MCV 85.7, MCH 28.9, MCHC 33.8, RDW Std Deviation 42.5, RDW Coeff of Ronn 13.6, Plt Count 230, MPV 10.2, Immature Gran % (Auto) 0.400, Neut % (Auto) 85.5 H, Lymph % (Auto) 6.0 L, Mayes % (Auto) 7.8, Eos % (Auto) 0.0, Baso % (Auto) 0.3, Absolute Neuts (auto) 13.3 H, Absolute Lymphs (auto) 0.93, Nucleated RBC % 0.1, Sodium 134, Potassium 4.0, Chloride 101, Carbon Dioxide 19.5 L, Anion Gap 14, BUN 19, Creatinine 0.96, Estim Creat Clear Calc 47.93 L, Est GFR (MDRD) Non-Af 62, BUN/Creatinine Ratio 20.0, Glucose 147 H, Calcium 8.4 Micro: Microbiology 12/23/24 08:05 Swab (Method) Nasal Screen MRSA/MSSA - Final Radiography Diagnostic Testing: Radiology Impression Lumbar Spine X-Ray 01/04/25 06:30 IMPRESSION: Fluoroscopic guidance was used intraoperatively. Please refer to the operative note for further details. Reading Location: [facility] Lumbar Spine X-Ray 01/05/25 05:30 IMPRESSION: There is hardware fusion from L2-5 which appears intact and aligned. MRI or bone scan could be helpful to determine chronicity if clinically indicated. There is a 10% copression deformity at T11 and T12, age-indeterminate. Reading [facility] Physical Exam Narrative General: Alert, oriented, no apparent distress HEENT: Atraumatic, normocephalic Eyes: extraocular movements grossly intact Neck: Supple Respiratory: normal respiratory effort, clear to auscultation Cardiovascular: Regular rate and rhythm GI: nondistended Extremities: Moving all extremities Neuro: No overt focal neurological deficits Psych: Cooperative Assessment & Plan Assessment/Plan (1) Spinal stenosis of lumbar region with neurogenic claudication: PLAN: Plan #Lumbar stenosis with neurogenic claudication ? Orthopedic surgery primary. S/p L2-5 lumbar fusion procedure with Dr. Valdivia on 01/04. Tolerated procedure well, no intraoperative complications noted. Postoperative pain control, DVT prophylaxis and further management per orthopedics. Follow-up a.m. labs. PT/OT/case management consulted. -01/04: PT/OT, management per primary # Mild dysphagia -01/04: There were reports of dysphagia, pt evaluated by speech, Compensatory strategies recommended by speech. Also MBSS recommended at discharge per speech, order per PCP or surgeon #Hypertension/hyperlipidemia ? Mildly hypertensive to the 130s to 140s systolic postoperatively. Continue home atenolol, hydrochlorothiazide and statin. -01/04: Holding parameters added to pts atenolol #GERD ? Continue home PPI DVT prophylaxis: Timing and agent discretion primary Charges/Coding Visit Charges Inpatient E&M: 86355 Subs Hosp L1
[2025-01-05 15:59] VITALS: BP 120/54; PULSE 75; RESP 17; TEMP 37; O2SAT 96
--- NOTE | 2025-01-05 16:22 | PCM.PN.ORT ---
Subjective Subjective The patient is postop day 1 L2-5 fusion. Patient is doing relatively well after surgery with her pain well-controlled. The patient says that she has been up and walking. PT/OT has been with her. The patient has not yet passed gas, she has been on and all liquids diet until she does so. She mentions that she has a left-sided groin pain and anterior thigh pain, this is related to the left sided abdominal incision. Seen with Dr. Valdivia. Objective Data Objective Data Vital Signs: Vital Signs Temp Pulse Resp BP Pulse Ox O2 Del Method O2 Flow Rate 98.6 F 75 17 120/54 L 96 Room Air 1 01/05/25 15:59 01/05/25 15:59 01/05/25 15:59 01/05/25 15:59 01/05/25 15:59 01/05/25 15:59 01/05/25 04:31 Oxygen Flow Rate (L/min) 1 Oxygen Delivery Method Room Air Weight: 170 lb Body Mass Index (BMI) 31.1 Intake & Output: Intake and Output for Last 24 Hours 01/03/25 01/04/25 01/05/25 23:59 23:59 23:59 Intake Total 3507.43 / 3507.43 781 / 781 Output Total 1300 / 1300 170 / 170 Balance 2207.43 / 2207.43 611 / 611 Lab / Micro Data 01/05/25 04:19 01/05/25 04:19 Labs: Laboratory Results - last 24 hr 01/05/25 04:19: WBC 15.6 H, RBC 4.46, Hgb 12.9, Hct 38.2, MCV 85.7, MCH 28.9, MCHC 33.8, RDW Std Deviation 42.5, RDW Coeff of Ronn 13.6, Plt Count 230, MPV 10.2, Immature Gran % (Auto) 0.400, Neut % (Auto) 85.5 H, Lymph % (Auto) 6.0 L, [place] % (Auto) 7.8, Eos % (Auto) 0.0, Baso % (Auto) 0.3, Absolute Neuts (auto) 13.3 H, Absolute Lymphs (auto) 0.93, Nucleated RBC % 0.1, Sodium 134, Potassium 4.0, Chloride 101, Carbon Dioxide 19.5 L, Anion Gap 14, BUN 19, Creatinine 0.96, Estim Creat Clear Calc 47.93 L, Est GFR (MDRD) Non-Af 62, BUN/Creatinine Ratio 20.0, Glucose 147 H, Calcium 8.4 Micro: Microbiology 12/23/24 08:05 Swab (Method) Nasal Screen MRSA/MSSA - Final Radiography Diagnostic Testing: Radiology Impression Lumbar Spine X-Ray 01/05/25 05:30 IMPRESSION: There is hardware fusion from L2-5 which appears intact and aligned. MRI or bone scan could be helpful to determine chronicity if clinically indicated. There is a 10% copression deformity at T11 and T12, age-indeterminate. Reading [facility] Physical Exam Narrative Neurological examination of the lower extremity showed 5X5 power. Normal sensation across all dermatomes. Physical examination of the back and belly shows Tegaderm and gauze CDI. Const alert, oriented x3 and no apparent distress Assessment & Plan Assessment/Plan (1) Status post lumbar spinal fusion: PLAN: Plan Postop day 1 L2-5 fusion. Obtained reviewed x-rays today which show hardware and bone graft in good position. Patient has not yet passed gas. Once she passes gas she will be advanced to a regular diet. Dulcolax x 2 ordered earlier this morning and this afternoon. If these do not work tomorrow morning we will order a suppository. Encouraged ambulation and consuming plenty of fluids to help the patient pass gas. PT/OT has cleared her for home discharge. Patient wishes for her medications to be sent to the hospital pharmacy. At this time it appears that she will be spending another night as she has not yet passed any flatus, we will see her tomorrow morning.
[2025-01-05 21:35] VITALS: BP 130/47; PULSE 79; RESP 16; TEMP 36.6; O2SAT 94
[2025-01-06 02:01] VITALS: BP 142/54; PULSE 77; RESP 18; TEMP 36.6; O2SAT 95
[2025-01-06] MEDS: 0.9% Saline Lock 10 ML Syringe IV (03:07)
[2025-01-06 08:00] VITALS: BP 141/71; PULSE 74; RESP 16; TEMP 36.3; O2SAT 97
[2025-01-06] MEDS: Senna/Docusate Sodium 1 Tablet 2 TABLET PO (08:23)
--- NOTE | 2025-01-06 11:12 | PCM.PN.HOSP ---
Subjective Subjective Reports she started to pass gas, not nauseous at time of evaluation, reports she has been having little bit of difficulty with urination intermittently but that this happened to her previously like when she had her children. Denying any abdominal pain, denies any other acute complaints Objective Data Objective Data Vital Signs: Vital Signs Temp Pulse Resp BP Pulse Ox O2 Del Method O2 Flow Rate 97.4 F L 74 16 141/71 H 97 Room Air 1 01/06/25 08:00 01/06/25 08:00 01/06/25 08:00 01/06/25 08:00 01/06/25 08:00 01/06/25 08:00 01/05/25 04:31 Oxygen Flow Rate (L/min) 1 Oxygen Delivery Method Room Air Weight: 77.111 kg Body Mass Index (BMI) 31.1 Intake & Output: Intake and Output for Last 24 Hours 01/04/25 01/05/25 01/06/25 23:59 23:59 23:59 Intake Total 3507.43 / 3507.43 781 / 781 500 / 500 Output Total 1300 / 1300 370 / 370 1000 / 1000 Balance 2207.43 / 2207.43 411 / 411 -500 / -500 Lab / Micro Data 01/05/25 04:19 01/05/25 04:19 Micro: Microbiology 12/23/24 08:05 Swab (Method) Nasal Screen MRSA/MSSA - Final Physical Exam Narrative General: Alert, oriented, no apparent distress HEENT: Atraumatic, normocephalic Eyes: extraocular movements grossly intact Neck: Supple Respiratory: normal respiratory effort Cardiovascular: Regular rate GI: nondistended, no tenderness with no rebound, guarding, rigidity Extremities: Moving all extremities Neuro: No overt focal neurological deficits Psych: Cooperative Assessment & Plan Assessment/Plan (1) Spinal stenosis of lumbar region with neurogenic claudication: PLAN: Plan #Lumbar stenosis with neurogenic claudication ? Orthopedic surgery primary. S/p L2-5 lumbar fusion procedure with Dr. Valdivia on 01/04. Tolerated procedure well, no intraoperative complications noted. Postoperative pain control, DVT prophylaxis and further management per orthopedics. Follow-up a.m. labs. PT/OT/case management consulted. -01/05: PT/OT, management per primary -01/06: Yesterday patient was not passing gas, she is passing gas now and diet is being advanced. Still awaiting bowel movement. Appears she has had some urinary retention, will order another postvoid, unclear if this will improve if patient has bowel movement or will improve further outpatient is from surgery, if patient continues to retain may need Cisse catheter replaced and to follow-up with urology. # Mild dysphagia -01/05: There were reports of dysphagia, pt evaluated by speech, Compensatory strategies recommended by speech. Also MBSS recommended at discharge per speech, order per PCP or surgeon -01/06: Discussed with patient and she is aware, MBSS can be coordinated by PCP or surgeon if applicable #Hypertension/hyperlipidemia ? Mildly hypertensive to the 130s to 140s systolic postoperatively. Continue home atenolol, hydrochlorothiazide and statin. -01/05: Holding parameters added to pts atenolol -01/06: BP stable at this time, will continue home medications and continue to monitor while admitted Chronic medical problems and/or problems not being actively addressed during today's encounter: #GERD ? Continue home PPI DVT prophylaxis: Timing and agent discretion primary Charges/Coding Visit Charges Inpatient E&M: 60767 Subs Hosp L1
--- NOTE | 2025-01-06 12:13 | DCINST_ITS ---
Discharge Instructions
--- NOTE | 2025-01-06 12:13 | PCM.DC ---
Discharge Instructions DC O2, CPAP, BIPAP needs Home O2 Discharge instructions: No Follow Up Care Test Results: Test results from this visit will be discussed in further detail at your follow-up appointment, if applicable. Discharge Plan Admission Admit Date/Time: 01/04/25 13:14 Attending Provider: Graham Valdivia Primary Care Provider: Moose Barreto Consulting Providers: Elham Quinonez Instructions Patient Instructions: Lumbar Fusion Dc Additional Instructions / Restrictions: Keep Tegaderm and gauze clean and dry. If Tegaderm is intact, okay to shower. After 5 days remove Tegaderm and gauze and cover with a Band-Aid. Replace Band-Aid daily thereafter. No bending lifting or twisting. Follow-up in clinic in 2 weeks. Discharge Orders/Prescriptions Prescriptions: New acetaminophen 500 mg Tablet 1,000 mg PO Q6H Qty: 30 0RF meloxicam 15 mg Tablet 15 mg PO DAILY Qty: 30 0RF Rx Instructions: take once a day methocarbamol 500 mg Tablet 750 mg PO TID PRN (Reason: pain/spasms) Qty: 30 0RF oxycodone 5 mg Tablet 2.5 - 5 mg PO Q6H PRN (Reason: pain) 7 Days Qty: 28 0RF sennosides-docusate sodium [Stimulant Laxative Plus] 8.6-50 mg Tablet 2 tab PO BID PRN (Reason: constipation) Qty: 30 0RF Continued atenolol 25 mg tablet 25 mg PO DAILY lovastatin 20 mg tablet 20 mg PO QHS hydrochlorothiazide 25 mg tablet 25 mg PO DAILY multivitamin [Multiple Vitamins] Tablet 1 tab PO DAILY omeprazole 20 mg capsule,delayed release(DR/EC) 20 mg PO QODAY Referrals / Follow Up: Moose Barreto MD [Primary Care Provider, Medical] Disposition Disposition (needs filled in before D/C Order can be placed): Home, Self Care
--- NOTE | 2025-01-06 12:13 | PCM.PN.ORT ---
Subjective Subjective Postop day 2 L2-5 fusion. The patient has finally passed gas and will be eating a solid meal. The patient was seen at the bedside this morning. Patient has walked with therapy and she says she has a very well-controlled pain with movement. Patient says that she had to be straight cathed twice due to urinary retention. The patient says that this is not uncommon for her when she is not at home. Discussed that if more straight catheters are required and then a Cisse catheter could be placed and she would be an outpatient follow-up with urology. Patient understands. She will be discharged home today. Objective Data Objective Data Vital Signs: Vital Signs Temp Pulse Resp BP Pulse Ox O2 Del Method O2 Flow Rate 97.4 F L 74 16 141/71 H 97 Room Air 1 01/06/25 08:00 01/06/25 08:00 01/06/25 08:00 01/06/25 08:00 01/06/25 08:00 01/06/25 08:00 01/05/25 04:31 Oxygen Flow Rate (L/min) 1 Oxygen Delivery Method Room Air Weight: 170 lb Body Mass Index (BMI) 31.1 Intake & Output: Intake and Output for Last 24 Hours 01/04/25 01/05/25 01/06/25 23:59 23:59 23:59 Intake Total 3507.43 / 3507.43 781 / 781 500 / 500 Output Total 1300 / 1300 370 / 370 1000 / 1000 Balance 2207.43 / 2207.43 411 / 411 -500 / -500 Lab / Micro Data 01/05/25 04:19 01/05/25 04:19 Micro: Microbiology 12/23/24 08:05 Swab (Method) Nasal Screen MRSA/MSSA - Final Physical Exam Narrative Neurological examination of the lower extremity showed 5X5 power. Normal sensation across all dermatomes. Physical examination of the back and belly shows Tegaderm and gauze CDI. Const alert, oriented x3 and no apparent distress Assessment & Plan Assessment/Plan (1) Status post lumbar spinal fusion: PLAN: Plan Postop day 2 L2-5 fusion. Plan for home discharge today, the patient's pain continues to be well-controlled. The patient has passed gas and has ate a solid meal. Home-going meds include oxycodone, acetaminophen, meloxicam, methocarbamol, senna. OARRS reviewed. Reviewed and educated on the use of the incentive spirometer. Reviewed and educated on restrictions and no bending, lifting, twisting. She will follow-up in 2 weeks in the clinic. Patient is in agreement.
--- NOTE | 2025-01-06 12:41 | NURSING ---
Post void scan 304ml. notified.
--- NOTE | 2025-01-06 13:20 | PHA.DC_ITS ---
Pharmacy [place] Med Rec Counseling
--- NOTE | 2025-01-06 13:20 | PHA.DC.MC.R ---
Pharmacy [place] Med Rec Counseling Pharmacy Service has performed discharge medication reconciliation and counseling for this patient. Patient requested meds to beds, this [facility] called retail and requested delivery. 1. ACETAMINOPHEN 1000MG PO Q6 2. MELOXICAM 15MG PO DAILY 3. METHOCARBAMOL 750MG PO TID PRN MUSCLE PAIN/SPASMS 4. OXYCODONE 2.5-5MG PO Q6H PRN PAIN 5. SENNA/DOCUSATE 2T PO BID PRN CONSTIPATION The patient's discharge medication list was reviewed for discrepancies and discrepancies were resolved. The patient was counseled on the following discharge medications and changes in medications for homegoing were reviewed. The Reason for Use, instructions for use, and potential side effects were reviewed for all new medications. The patient's questions regarding all of their medications were answered. The patient was able to verbally demonstrate an understanding of their discharge medications. Medications at Discharge Home Medications atenolol 25 mg tablet 25 mg PO DAILY HTN 11/21/19 hydrochlorothiazide 25 mg tablet 25 mg PO DAILY HTN 11/21/19 lovastatin 20 mg tablet 20 mg PO QHS HLD 11/21/19 multivitamin (Multiple Vitamins tablet) 1 tab PO DAILY SUPPLEMENT 11/21/19 omeprazole 20 mg capsule,delayed release 20 mg PO QODAY GERD 07/08/24 acetaminophen 500 mg tablet 1,000 mg (2 x 500 mg) PO Q6H #30 tabs 01/06/25 meloxicam 15 mg tablet 15 mg PO DAILY #30 tabs 01/06/25 methocarbamol 500 mg tablet 750 mg (1.5 x 500 mg) PO TID PRN pain/spasms #30 tabs 01/06/25 oxycodone 5 mg tablet 2.5 - 5 mg (0.5 - 1 x 5 mg) PO Q6H PRN pain 7 days #28 tabs 01/06/25 sennosides 8.6 mg-docusate sodium 50 mg tablet (Stimulant Laxative Plus) 2 tab PO BID PRN constipation #30 tabs 01/06/25
[2025-01-06 13:52] VITALS: BP 155/71; PULSE 70; RESP 18; TEMP 36.7; O2SAT 96
== END 2025-01-06 14:39 | disposition home or self-care (01) | DRG 448 ==
PROVIDERS: Student in an Organized Health Care Education/Training Program; Admitting Provider Orthopaedic Surgery Orthopaedic Surgery of the Spine; PCP Family Medicine; Referring Provider Orthopaedic Surgery Orthopaedic Surgery of the Spine; Visit Provider Orthopaedic Surgery Orthopaedic Surgery of the Spine
PROC: 0SG10A0 Fusion of 2 or more Lumbar Vertebral Joints with Interbody Fusion Device, Anterior Approach, Anterior Column, Open Approach (ICD-10-PCS; principal; 2025-01-04 07:00)
DX: M48.062 Spinal stenosis, lumbar region with neurogenic claudication (principal); R13.10 Dysphagia, unspecified; I10 Essential (primary) hypertension; E66.811 Obesity, class 1; K21.9 Gastro-esophageal reflux disease without esophagitis; E78.00 Pure hypercholesterolemia, unspecified; M43.16 Spondylolisthesis, lumbar region; M51.362 Other intervertebral disc degeneration, lumbar region with discogenic back pain and lower extremity pain; M85.80 Other specified disorders of bone density and structure, unspecified site; R33.8 Other retention of urine; Z98.1 Arthrodesis status; Z68.31 Body mass index [BMI] 31.0-31.9, adult; Z79.899 Other long term (current) drug therapy
CPT/HCPCS: 36415; 72100; 76000; 80048; 82962; 83036; 83735; 85025; 86850; 86900; 86901; 87081; 92610; 94668; 97162; 97166; 99252; C1713; A4216; G0463; J2405; J3475